=== PATIENT | male | born 1945 | race Caucasian/White ===

== ENCOUNTER → 2016-04-30 | Outpatient (CLI) | payer OTHER ==
[2016-04-30 09:06] LABS: Basophils # (auto) 0 uL; Basophils % (auto) 0.8 % (0.0-2.0); Eosinophils # (auto) 0.1 uL; Eosinophils % (auto) 1.7 % (0.0-7.0); Hematocrit 43.5 % (41.0-53.0); Hemoglobin 14.5 g/dL (13.5-17.5); Lymphocytes # (auto) 1.8 uL; Lymphocytes % (auto) 28.7 % (10.0-50.0); Mean Corpuscular Hemoglobin 30.2 pg (28.0-32.0); Mean Corpuscular Hgb Conc. 33.4 g/dL (32.0-36.0); Mean Corpuscular Volume 90.5 fL (80.0-100.0); Mean Platelet Volume 8.4 fL (7.4-10.4); Monocytes # (auto) 0.4 uL; Monocytes % (auto) 6.8 % (0.0-12.0); Neutrophils # (auto) 3.8 uL; Platelet Count (auto) 149 10^3/uL (140-450); Red Cell Distribution Width 14.5 % (11.6-16.0); White Blood Cell 6.1 10^3/uL (4.4-10.8)
[2016-04-30 09:31] LABS: Albumin 4.4 g/dL (3.4-5.0); BUN/Creatinine Ratio 21.1; Bilirubin, Total 0.7 mg/dL (0.2-1.0); Calcium 9.6 mg/dL (8.5-10.1); Potassium 4.5 mmol/L (3.5-5.1); Total Protein 7.7 g/dL (6.4-8.2)
[2016-04-30 09:33] LABS: Urine Bilirubin Negative (Negative); Urine Blood Negative /uL (Negative); Urine Color Yellow (Yellow); Urine Glucose Normal (Normal); Urine Ketone Negative (Negative); Urine Nitrite Negative (Negative); Urine RBC 5 /hpf (0 - 3); Urine Urobilinogen Normal (Negative); Urine pH 5.5 (5.0-8.0)
== END | disposition home or self-care (01) ==
LOC: LAB 06:47
PROVIDERS: ATTEND Family Medicine
DX: I10 Essential (primary) hypertension (principal); E78.4 Other hyperlipidemia; G61.89 Other inflammatory polyneuropathies
CPT/HCPCS: 36415; 80053; 80061; 81001; 82306; 82607; 83036; 84443; 85025; 85049

== ENCOUNTER → 2016-09-14 | Outpatient (CLI) | payer OTHER ==
[~2016-09-14] VITALS: Ht 175.3 cm; Wt 111.1 kg
[~2016-09-14] MED LIST: ADENOSINE 93 MG in GIVE UN-DILUTED 0 ML IV STA
== END | disposition home or self-care (01) ==
LOC: XY 08:07
PROVIDERS: ATTEND Internal Medicine Cardiovascular Disease
DX: Z01.818 Encounter for other preprocedural examination (principal); I35.8 Other nonrheumatic aortic valve disorders
CPT/HCPCS: 93017; 93306; J0153

== ENCOUNTER 2016-11-02 11:54 | Inpatient (IN) | payer OTHER ==
[~2016-11-02] VITALS: Ht 175.3 cm; Wt 107.5 kg
[2016-11-02 13:00] LABS: Basophils # (auto) 0.1 uL; Basophils % (auto) 0.8 % (0.0-2.0); CONDITION Y; Eosinophils # (auto) 0.1 uL; Eosinophils % (auto) 1.9 % (0.0-7.0); Hematocrit 43.4 % (41.0-53.0); Lymphocytes # (auto) 2.2 uL; Lymphocytes % (auto) 32.1 % (10.0-50.0); Mean Corpuscular Hemoglobin 30.9 pg (28.0-32.0); Mean Corpuscular Hgb Conc. 34.5 g/dL (32.0-36.0); Mean Corpuscular Volume 89.4 fL (80.0-100.0); Mean Platelet Volume 8.3 fL (7.4-10.4); Monocytes # (auto) 0.7 uL; Neutrophils # (auto) 3.8 uL; Neutrophils % (auto) 55.2 % (37.0-80.0); Platelet Count (auto) 167 10^3/uL (140-450); Red Cell Distribution Width 14.1 % (11.6-16.0)
[2016-11-02 13:13] LABS: INR 1.44 (0.9-1.15); Partial Thromboplastin Time 30.6 sec (22.64-33.71)
[2016-11-02 13:19] LABS: Albumin 4.1 g/dL (3.4-5.0); Alkaline Phosphatase 67 U/L (45-117); Anion Gap 7 (5-15); Aspartate Aminotransferase 18 U/L (15-37); BUN/Creatinine Ratio 18.6; Bilirubin, Total 0.7 mg/dL (0.2-1.0); Blood Urea Nitrogen 19 mg/dL (7-18); Calcium 9.4 mg/dL (8.5-10.1); Carbon Dioxide 28 mmol/L (21-32); Chloride 108 mmol/L (98-107); GFR African American 92 mL/min; GFR Non-African American 76 mL/min; Glucose 97 mg/dL (74-106); Magnesium 2.6 mg/dL (1.6-2.6); Potassium 4.2 mmol/L (3.5-5.1); Sodium 143 mmol/L (136-145); Total Protein 7.8 g/dL (6.4-8.2)
[2016-11-02 13:22] LABS: Prothrombin Time 15.8 sec (9.37-12.3)
[2016-11-02] MEDS ORDERED: TEMAZEPAM 15 MG CAP PO PRN (14:30)
[2016-11-02] MEDS ORDERED: ACETAMINOPHEN 500 MG TAB PO PRN (14:30)
[2016-11-02] MEDS ORDERED: MORPHINE SULF INJ 2 MG/ML SYRINGE 1ML IV PRN (14:30)
[2016-11-02] MEDS ORDERED: NITROGLYCERIN 0.4 MG SL TAB SL PRN (14:30)
[2016-11-02] MEDS ORDERED: LOVA40TA72 PO (14:47)
[2016-11-02] MEDS ORDERED: WARF4TAB33 PO (14:47)
[2016-11-02] MEDS ORDERED: GABA-497 PO (14:47)
[2016-11-02] MEDS ORDERED: METO-169 PO (14:47)
[2016-11-02] MEDS ORDERED: TAMS0.4C36 PO (14:47)
[2016-11-02] MEDS ORDERED: HEPARIN DRIP/D5W 100UNITS/ML 250 ML IV SCH (15:15)
[2016-11-02 15:23] LABS: Urine Bilirubin Negative (Negative); Urine Blood Negative /uL (Negative); Urine Color Yellow (Yellow); Urine Glucose Normal (Normal); Urine Hyaline Cast FEW /lpf (0 - 2); Urine Ketone Negative (Negative); Urine Mucus FEW (None Seen); Urine Nitrite Negative (Negative); Urine RBC <1 /hpf (0 - 3); Urine Urobilinogen Normal (Negative)
[2016-11-02 17:00] VITALS: BP 127/77
[2016-11-02 20:00] VITALS: BP 113/66
[2016-11-02 22:00] VITALS: BP 113/66
[2016-11-02 22:17] LABS: INR 1.29 (0.9-1.15); Partial Thromboplastin Time 35.6 sec (22.64-33.71); Prothrombin Time 14.1 sec (9.37-12.3)
[2016-11-03 05:00] VITALS: BP 119/63
[2016-11-03 06:02] LABS: Basophils # (auto) 0.1 uL; Basophils % (auto) 1.3 % (0.0-2.0); CONDITION Y; Eosinophils # (auto) 0.1 uL; Eosinophils % (auto) 1.9 % (0.0-7.0); Hematocrit 41.4 % (41.0-53.0); Hemoglobin 14.6 g/dL (13.5-17.5); Lymphocytes # (auto) 1.9 uL; Lymphocytes % (auto) 34.9 % (10.0-50.0); Mean Corpuscular Hemoglobin 31.4 pg (28.0-32.0); Mean Corpuscular Hgb Conc. 35.2 g/dL (32.0-36.0); Mean Corpuscular Volume 89.3 fL (80.0-100.0); Mean Platelet Volume 8.4 fL (7.4-10.4); Monocytes # (auto) 0.5 uL; Monocytes % (auto) 9.8 % (0.0-12.0); Neutrophils # (auto) 2.8 uL; Neutrophils % (auto) 52.1 % (37.0-80.0); Platelet Count (auto) 130 10^3/uL (140-450); Red Cell Distribution Width 14.2 % (11.6-16.0); White Blood Cell 5.4 10^3/uL (4.4-10.8)
[2016-11-03 06:13] LABS: INR 1.24 (0.9-1.15); Partial Thromboplastin Time 54.1 sec (22.64-33.71)
[2016-11-03 06:14] LABS: Prothrombin Time 13.5 sec (9.37-12.3)
[2016-11-03] MEDS ORDERED: HEPARIN DRIP/D5W 100UNITS/ML 250 ML IV SCH (06:30)
[2016-11-03 08:00] VITALS: BP 114/72
[2016-11-03 09:06] VITALS: BP 114/72
[2016-11-03 11:58] LABS: INR 1.21 (0.9-1.15); Partial Thromboplastin Time 43.6 sec (22.64-33.71)
[2016-11-03 12:16] LABS: Prothrombin Time 13.2 sec (9.37-12.3)
[2016-11-03 12:54] VITALS: BP 133/77
[2016-11-03] MEDS: HEPARIN DRIP/D5W 100UNITS/ML 250 ML IV SCH (12:56)
[2016-11-03] MEDS ORDERED: GABAPENTIN 300 MG CAP PO ONE (15:30)
[2016-11-03 17:00] VITALS: BP 133/81
[2016-11-03] MEDS: TAMSULOSIN HYDROCHLORIDE 0.4 MG CAP PO SCH (17:06)
[2016-11-03 19:48] LABS: INR 1.16 (0.9-1.15)
[2016-11-03 19:49] LABS: Prothrombin Time 12.7 sec (9.37-12.3)
[2016-11-03] MEDS: ATORVASTATIN 20 MG TAB PO SCH (21:04)
[2016-11-03] MEDS: GABAPENTIN 300 MG CAP PO SCH (21:04)
[2016-11-03 22:00] VITALS: BP 116/66
[2016-11-04] MEDS: HEPARIN DRIP/D5W 100UNITS/ML 250 ML IV SCH (00:51)
[2016-11-04 05:00] VITALS: BP 102/64
[2016-11-04] MEDS: GABAPENTIN 300 MG CAP PO SCH ×3 (05:30→21:05)
[2016-11-04] MEDS ORDERED: HEPARIN DRIP/D5W 100UNITS/ML 250 ML IV SCH ×2 (08:30→14:15)
[2016-11-04 09:00] VITALS: BP 127/67
[2016-11-04 09:06] LABS: INR 1.11 (0.9-1.15); Partial Thromboplastin Time 68.2 sec (22.64-33.71); Prothrombin Time 12.1 sec (9.37-12.3)
[2016-11-04 09:58] LABS: Basophils # (auto) 0 uL; Basophils % (auto) 0.6 % (0.0-2.0); CONDITION Y; Eosinophils # (auto) 0.1 uL; Eosinophils % (auto) 1.6 % (0.0-7.0); Hematocrit 43.1 % (41.0-53.0); Hemoglobin 14.9 g/dL (13.5-17.5); Lymphocytes # (auto) 1.6 uL; Lymphocytes % (auto) 29.8 % (10.0-50.0); Mean Corpuscular Hemoglobin 30.9 pg (28.0-32.0); Mean Corpuscular Hgb Conc. 34.5 g/dL (32.0-36.0); Mean Corpuscular Volume 89.6 fL (80.0-100.0); Mean Platelet Volume 8.5 fL (7.4-10.4); Monocytes # (auto) 0.3 uL; Monocytes % (auto) 5.6 % (0.0-12.0); Neutrophils # (auto) 3.4 uL; Neutrophils % (auto) 62.4 % (37.0-80.0); Platelet Count (auto) 144 10^3/uL (140-450); Red Cell Distribution Width 14.6 % (11.6-16.0); White Blood Cell 5.5 10^3/uL (4.4-10.8)
[2016-11-04 13:00] VITALS: BP 131/63
[2016-11-04 14:05] LABS: INR 1.13 (0.9-1.15); Prothrombin Time 12.3 sec (9.37-12.3)
[2016-11-04 16:59] VITALS: BP 117/70
[2016-11-04] MEDS: TAMSULOSIN HYDROCHLORIDE 0.4 MG CAP PO SCH (18:30)
[2016-11-04] MEDS: ATORVASTATIN 20 MG TAB PO SCH (21:05)
[2016-11-04 22:00] VITALS: BP 111/64
[2016-11-05 05:00] VITALS: BP 103/60
[2016-11-05] MEDS: GABAPENTIN 300 MG CAP PO SCH ×3 (05:32→22:42)
[2016-11-05 06:21] LABS: INR 1.05 (0.9-1.15); Partial Thromboplastin Time 28.5 sec (22.64-33.71); Prothrombin Time 11.5 sec (9.37-12.3)
[2016-11-05] MEDS ORDERED: BUPIVACAINE W/ EPINEPH 0.25% INJ 50ML MDV ONE (06:56)
[2016-11-05] MEDS ORDERED: BUPIVACAINE 0.25% INJ 50ML VIAL ONE (06:56)
[2016-11-05] MEDS ORDERED: LIDOCAINE 1% HCL (LOCAL ANESTH.) INJ 20ML MDV ONE (06:56)
[2016-11-05] MEDS ORDERED: ceFAZolin 1GM/50ML D5W 100 ML IV ONE (07:06)
[2016-11-05] MEDS ORDERED: fentaNYL CITRATE 5 ML ONE (07:35)
[2016-11-05] MEDS ORDERED: MIDAZOLAM HCL 1MG/1ML-2 ML VIAL ONE (07:36)
[2016-11-05] MEDS ORDERED: PROPOFOL 10 MG/ML 20 ML IV ONE (07:36)
[2016-11-05] MEDS ORDERED: ROCURONIUM 10MG/ML 10ML VIAL IV ONE (07:36)
[2016-11-05] MEDS ORDERED: HYDROmorphone HCL 2 MG/ML VL ONE (08:04)
[2016-11-05] MEDS ORDERED: ONDANSETRON HCL 4 MG/2 ML VIAL IV ONE (10:30)
[2016-11-05] MEDS ORDERED: ePHEDrine SULFATE 50 MG/ML AMP IV PRN (10:30)
[2016-11-05] MEDS ORDERED: hydrALAZINE HCL 20 MG/ML VL IV PRN (10:30)
[2016-11-05] MEDS: HYDROmorphone HCL 2 MG/ML VL IV PRN ×7 (10:59→23:52)
[2016-11-05] MEDS ORDERED: HYDROmorphone HCL 2 MG/ML VL IV PRN (12:00)
[2016-11-05 13:14] VITALS: BP 123/80
[2016-11-05] MEDS ORDERED: WARFARIN SODIUM 5 MG TAB PO ONE (17:00)
[2016-11-05 17:38] VITALS: BP 112/80
[2016-11-05] MEDS: TAMSULOSIN HYDROCHLORIDE 0.4 MG CAP PO SCH (17:42)
[2016-11-05 22:07] VITALS: BP 109/66
[2016-11-05] MEDS: ATORVASTATIN 20 MG TAB PO SCH (22:42)
[2016-11-06] MEDS: HYDROmorphone HCL 2 MG/ML VL IV PRN ×5 (02:56→20:16)
[2016-11-06 05:00] VITALS: BP 134/70
[2016-11-06] MEDS: GABAPENTIN 300 MG CAP PO SCH ×3 (05:52→21:34)
[2016-11-06 07:31] LABS: INR 1.07 (0.9-1.15); Partial Thromboplastin Time 26.2 sec (22.64-33.71); Prothrombin Time 11.7 sec (9.37-12.3)
[2016-11-06 08:00] VITALS: BP 124/74
[2016-11-06 09:00] VITALS: BP 125/74
[2016-11-06] MEDS ORDERED: HEPARIN DRIP/D5W 100UNITS/ML 250 ML IV SCH (12:36)
[2016-11-06 13:00] VITALS: BP 116/68
[2016-11-06] MEDS: HYDROcodone-ACET 5/325MG TAB PO PRN ×2 (13:16→17:25)
[2016-11-06] MEDS: HEPARIN DRIP/D5W 100UNITS/ML 250 ML IV SCH (13:45)
[2016-11-06 17:00] VITALS: BP 130/63
[2016-11-06] MEDS ORDERED: WARFARIN SODIUM 2 MG TAB PO ONE (17:00)
[2016-11-06] MEDS: TAMSULOSIN HYDROCHLORIDE 0.4 MG CAP PO SCH (17:25)
[2016-11-06 19:56] LABS: INR 1.12 (0.9-1.15); Partial Thromboplastin Time 41.5 sec (22.64-33.71); Prothrombin Time 12.2 sec (9.37-12.3)
[2016-11-06] MEDS: DOCUSATE SOD 100 MG CAP PO SCH (21:34)
[2016-11-06] MEDS: ATORVASTATIN 20 MG TAB PO SCH (21:34)
[2016-11-06] MEDS ORDERED: CALCIUM CARB 500 MG CHEW TAB PO PRN (21:45)
[2016-11-06] MEDS ORDERED: METOPROLOL TARTRATE 1MG/1ML-5ML VIAL IV ONE (21:45)
[2016-11-06 22:05] VITALS: BP 114/60
[2016-11-07] MEDS: HEPARIN DRIP/D5W 100UNITS/ML 250 ML IV SCH ×2 (01:01→14:44)
[2016-11-07 02:31] LABS: Basophils # (auto) 0.1 uL; Basophils % (auto) 0.7 % (0.0-2.0); CONDITION Y; Eosinophils # (auto) 0 uL; Eosinophils % (auto) 0.4 % (0.0-7.0); Lymphocytes # (auto) 1.8 uL; Lymphocytes % (auto) 20.3 % (10.0-50.0); Mean Corpuscular Hgb Conc. 34.4 g/dL (32.0-36.0); Mean Corpuscular Volume 90.2 fL (80.0-100.0); Mean Platelet Volume 8.1 fL (7.4-10.4); Monocytes # (auto) 1.5 uL; Monocytes % (auto) 16.6 % (0.0-12.0); Neutrophils # (auto) 5.5 uL; Platelet Count (auto) 123 10^3/uL (140-450); Red Cell Distribution Width 14.5 % (11.6-16.0); White Blood Cell 8.9 10^3/uL (4.4-10.8)
[2016-11-07 02:33] LABS: INR 1.16 (0.9-1.15)
[2016-11-07 02:35] LABS: Partial Thromboplastin Time 86.5 sec (22.64-33.71); Prothrombin Time 12.7 sec (9.37-12.3)
[2016-11-07] MEDS: HYDROcodone-ACET 5/325MG TAB PO PRN ×4 (04:47→21:29)
[2016-11-07 04:50] VITALS: BP 123/68
[2016-11-07] MEDS: GABAPENTIN 300 MG CAP PO SCH ×3 (05:44→21:30)
[2016-11-07 06:08] LABS: Urine Bilirubin Negative (Negative); Urine Color PINK (Yellow); Urine Glucose Normal (Normal); Urine Ketone Negative (Negative); Urine Nitrite Negative (Negative); Urine RBC 233 /hpf (0 - 3); Urine Squamous Epithelial Cell FEW /hpf (<5); Urine Urobilinogen Normal (Negative)
[2016-11-07 06:11] LABS: Urine Blood 3+ /uL (Negative)
[2016-11-07 08:07] LABS: INR 1.23 (0.9-1.15)
[2016-11-07 08:09] LABS: Prothrombin Time 13.4 sec (9.37-12.3)
[2016-11-07 08:10] LABS: Partial Thromboplastin Time 98.6 sec (22.64-33.71)
[2016-11-07 09:00] VITALS: BP 104/59
[2016-11-07] MEDS: DOCUSATE SOD 100 MG CAP PO SCH ×2 (09:18→21:30)
[2016-11-07] MEDS ORDERED: DIGOXIN (250MCG/ML) 2 ML AMPULE IV ONE (10:15)
[2016-11-07 13:00] VITALS: BP 123/66
[2016-11-07 17:00] VITALS: BP 116/62
[2016-11-07] MEDS ORDERED: WARFARIN SODIUM 2 MG TAB PO ONE (17:00)
[2016-11-07] MEDS: TAMSULOSIN HYDROCHLORIDE 0.4 MG CAP PO SCH (18:13)
[2016-11-07 20:00] VITALS: BP 111/63
[2016-11-07] MEDS: ATORVASTATIN 20 MG TAB PO SCH (21:29)
[2016-11-07] MEDS: CARVEDILOL 3.125 MG TAB PO SCH (21:29)
[2016-11-07 22:00] VITALS: BP 111/63
[2016-11-08 01:51] VITALS: BP 111/63
[2016-11-08 02:45] LABS: INR 1.61 (0.9-1.15); Partial Thromboplastin Time 69.3 sec (22.64-33.71)
[2016-11-08 02:53] LABS: Prothrombin Time 17.6 sec (9.37-12.3)
[2016-11-08] MEDS: HEPARIN DRIP/D5W 100UNITS/ML 250 ML IV SCH ×3 (03:15→17:29)
[2016-11-08 05:00] VITALS: BP 117/61
[2016-11-08] MEDS: HYDROcodone-ACET 5/325MG TAB PO PRN (05:44)
[2016-11-08] MEDS: GABAPENTIN 300 MG CAP PO SCH ×3 (05:44→21:33)
[2016-11-08] MEDS: HYDROmorphone HCL 2 MG/ML VL IV PRN ×5 (05:53→22:40)
[2016-11-08 05:57] LABS: Basophils # (auto) 0.1 uL; Basophils % (auto) 0.7 % (0.0-2.0); CONDITION Y; Eosinophils # (auto) 0.1 uL; Eosinophils % (auto) 1.5 % (0.0-7.0); Hematocrit 29.3 % (41.0-53.0); Hemoglobin 10.2 g/dL (13.5-17.5); Lymphocytes # (auto) 1.4 uL; Lymphocytes % (auto) 20.4 % (10.0-50.0); Mean Corpuscular Hemoglobin 31.2 pg (28.0-32.0); Mean Corpuscular Hgb Conc. 34.7 g/dL (32.0-36.0); Mean Corpuscular Volume 89.9 fL (80.0-100.0); Mean Platelet Volume 7.9 fL (7.4-10.4); Monocytes % (auto) 14.9 % (0.0-12.0); Neutrophils # (auto) 4.4 uL; Neutrophils % (auto) 62.5 % (37.0-80.0); Platelet Count (auto) 123 10^3/uL (140-450); Red Cell Distribution Width 14.6 % (11.6-16.0)
[2016-11-08 09:00] VITALS: BP 121/69
[2016-11-08 09:23] LABS: INR 1.65 (0.9-1.15); Partial Thromboplastin Time 59.2 sec (22.64-33.71)
[2016-11-08 09:24] LABS: Prothrombin Time 18.1 sec (9.37-12.3)
[2016-11-08] MEDS: CARVEDILOL 3.125 MG TAB PO SCH (10:25)
[2016-11-08] MEDS: DOCUSATE SOD 100 MG CAP PO SCH ×2 (10:25→21:33)
[2016-11-08] MEDS ORDERED: SENNA 8.6 MG TAB PO ONE (11:45)
[2016-11-08 13:00] VITALS: BP 119/72
[2016-11-08 17:00] VITALS: BP 111/72
[2016-11-08] MEDS ORDERED: WARFARIN SODIUM 2 MG TAB PO ONE (17:00)
[2016-11-08] MEDS: TAMSULOSIN HYDROCHLORIDE 0.4 MG CAP PO SCH (18:26)
[2016-11-08 19:16] LABS: Urine Bilirubin Negative (Negative); Urine Color Red (Yellow); Urine Glucose Normal (Normal); Urine Ketone Negative (Negative); Urine Nitrite Negative (Negative); Urine RBC 4352 /hpf (0 - 3); Urine Urobilinogen Normal (Negative); Urine pH 5.5 (5.0-8.0)
[2016-11-08 19:24] LABS: Urine Blood 3+ /uL (Negative)
[2016-11-08] MEDS: METOPROLOL TARTRATE 25 MG TAB PO SCH (21:33)
[2016-11-08] MEDS: ATORVASTATIN 20 MG TAB PO SCH (21:33)
[2016-11-08 22:00] VITALS: BP 128/65
[2016-11-09] MEDS: HYDROmorphone HCL 2 MG/ML VL IV PRN ×6 (01:57→20:11)
[2016-11-09] MEDS: HYDROcodone-ACET 5/325MG TAB PO PRN ×2 (03:53→21:54)
[2016-11-09 04:52] LABS: Urine Mucus FEW (None Seen); Urine RBC 7951 /hpf (0 - 3)
[2016-11-09 04:54] LABS: Urine Color Red (Yellow)
[2016-11-09 05:00] VITALS: BP 116/74
[2016-11-09 05:13] LABS: Basophils # (auto) 0 uL; Basophils % (auto) 0.8 % (0.0-2.0); CONDITION Y; Eosinophils # (auto) 0.2 uL; Eosinophils % (auto) 2.4 % (0.0-7.0); Hematocrit 28.3 % (41.0-53.0); Hemoglobin 9.8 g/dL (13.5-17.5); Lymphocytes # (auto) 1.5 uL; Lymphocytes % (auto) 24.6 % (10.0-50.0); Mean Corpuscular Hemoglobin 31.3 pg (28.0-32.0); Mean Corpuscular Hgb Conc. 34.7 g/dL (32.0-36.0); Mean Platelet Volume 7.2 fL (7.4-10.4); Monocytes % (auto) 16.1 % (0.0-12.0); Neutrophils # (auto) 3.5 uL; Neutrophils % (auto) 56.1 % (37.0-80.0); Platelet Count (auto) 143 10^3/uL (140-450); Red Cell Distribution Width 14.8 % (11.6-16.0); White Blood Cell 6.2 10^3/uL (4.4-10.8)
[2016-11-09 05:39] LABS: INR 2.11 (0.9-1.15); Partial Thromboplastin Time 48.6 sec (22.64-33.71)
[2016-11-09 05:42] LABS: Prothrombin Time 23.2 sec (9.37-12.3)
[2016-11-09] MEDS: GABAPENTIN 300 MG CAP PO SCH ×3 (06:02→21:38)
[2016-11-09] MEDS: DOCUSATE SOD 100 MG CAP PO SCH ×2 (08:51→21:37)
[2016-11-09] MEDS: METOPROLOL TARTRATE 25 MG TAB PO SCH ×2 (08:52→21:38)
[2016-11-09 09:00] VITALS: BP 109/62
[2016-11-09 13:00] VITALS: BP 112/54
[2016-11-09 17:00] VITALS: BP 113/59
[2016-11-09] MEDS ORDERED: WARFARIN SODIUM 2 MG TAB PO ONE (17:00)
[2016-11-09] MEDS: TAMSULOSIN HYDROCHLORIDE 0.4 MG CAP PO SCH (17:48)
[2016-11-09 21:12] LABS: Hematocrit 29.6 % (41.0-53.0); Hemoglobin 10.4 g/dL (13.5-17.5)
[2016-11-09 21:24] LABS: INR 2.63 (0.9-1.15); Partial Thromboplastin Time 34.1 sec (22.64-33.71)
[2016-11-09 21:29] LABS: Prothrombin Time 28.9 sec (9.37-12.3)
[2016-11-09] MEDS: ATORVASTATIN 20 MG TAB PO SCH (21:37)
[2016-11-09 22:00] VITALS: BP 131/60
[2016-11-10] MEDS: HYDROmorphone HCL 2 MG/ML VL IV PRN ×3 (00:54→22:01)
[2016-11-10 05:30] VITALS: BP 120/76
[2016-11-10] MEDS: GABAPENTIN 300 MG CAP PO SCH ×3 (06:00→22:01)
[2016-11-10 06:26] LABS: Basophils # (auto) 0 uL; Basophils % (auto) 0.7 % (0.0-2.0); CONDITION Y; Eosinophils # (auto) 0.1 uL; Eosinophils % (auto) 1.6 % (0.0-7.0); Hematocrit 27.8 % (41.0-53.0); Hemoglobin 9.6 g/dL (13.5-17.5); Lymphocytes # (auto) 1.4 uL; Lymphocytes % (auto) 19.6 % (10.0-50.0); Mean Corpuscular Hemoglobin 31.1 pg (28.0-32.0); Mean Corpuscular Hgb Conc. 34.5 g/dL (32.0-36.0); Mean Corpuscular Volume 90.2 fL (80.0-100.0); Mean Platelet Volume 7.5 fL (7.4-10.4); Monocytes % (auto) 14.1 % (0.0-12.0); Neutrophils # (auto) 4.4 uL; Platelet Count (auto) 149 10^3/uL (140-450); Red Cell Distribution Width 14.7 % (11.6-16.0); White Blood Cell 6.9 10^3/uL (4.4-10.8)
[2016-11-10 06:34] LABS: INR 2.44 (0.9-1.15); Partial Thromboplastin Time 36.9 sec (22.64-33.71)
[2016-11-10 06:43] LABS: Prothrombin Time 26.8 sec (9.37-12.3)
[2016-11-10 09:00] VITALS: BP_SYST 119; BP_SYST 122; BP_DIAS 64; BP_DIAS 66
[2016-11-10] MEDS: DOCUSATE SOD 100 MG CAP PO SCH ×2 (09:42→22:00)
[2016-11-10] MEDS: METOPROLOL TARTRATE 25 MG TAB PO SCH ×2 (09:42→22:00)
[2016-11-10] MEDS ORDERED: MORPHINE SULF INJ 2 MG/ML SYRINGE 1ML IV PRN (11:15)
[2016-11-10] MEDS ORDERED: TEMAZEPAM 15 MG CAP PO PRN (11:15)
[2016-11-10 13:00] VITALS: BP 111/41
[2016-11-10 17:00] VITALS: BP_SYST 114; BP_SYST 127; BP_DIAS 64
[2016-11-10] MEDS ORDERED: WARFARIN SODIUM 5 MG TAB PO ONE (17:00)
[2016-11-10] MEDS: TAMSULOSIN HYDROCHLORIDE 0.4 MG CAP PO SCH (18:13)
[2016-11-10] MEDS: HYDROcodone-ACET 5/325MG TAB PO PRN (19:51)
[2016-11-10 19:57] LABS: Hematocrit 31.1 % (41.0-53.0); Hemoglobin 10.5 g/dL (13.5-17.5)
[2016-11-10 22:00] VITALS: BP 111/72
[2016-11-10] MEDS: ATORVASTATIN 20 MG TAB PO SCH (22:00)
[2016-11-11] MEDS: HYDROmorphone HCL 2 MG/ML VL IV PRN ×3 (02:19→08:47)
[2016-11-11] MEDS: GABAPENTIN 300 MG CAP PO SCH ×2 (05:27→16:57)
[2016-11-11 05:30] VITALS: BP 108/69
[2016-11-11 06:13] LABS: Basophils # (auto) 0.1 uL; Basophils % (auto) 0.7 % (0.0-2.0); CONDITION Y; Eosinophils # (auto) 0.1 uL; Hematocrit 26.9 % (41.0-53.0); Hemoglobin 9.2 g/dL (13.5-17.5); Lymphocytes # (auto) 1.8 uL; Lymphocytes % (auto) 19.6 % (10.0-50.0); Mean Corpuscular Hemoglobin 30.9 pg (28.0-32.0); Mean Corpuscular Hgb Conc. 34.2 g/dL (32.0-36.0); Mean Corpuscular Volume 90.5 fL (80.0-100.0); Mean Platelet Volume 7.4 fL (7.4-10.4); Monocytes # (auto) 1.1 uL; Monocytes % (auto) 11.9 % (0.0-12.0); Neutrophils # (auto) 6.1 uL; Neutrophils % (auto) 66.8 % (37.0-80.0); Platelet Count (auto) 183 10^3/uL (140-450); Red Cell Distribution Width 14.9 % (11.6-16.0); White Blood Cell 9.1 10^3/uL (4.4-10.8)
[2016-11-11 06:25] LABS: INR 2.6 (0.9-1.15); Partial Thromboplastin Time 39.2 sec (22.64-33.71)
[2016-11-11 06:30] LABS: Prothrombin Time 28.6 sec (9.37-12.3)
[2016-11-11 09:00] VITALS: BP 116/54
[2016-11-11] MEDS: METOPROLOL TARTRATE 25 MG TAB PO SCH (11:08)
[2016-11-11] MEDS: DOCUSATE SOD 100 MG CAP PO SCH (11:08)
[2016-11-11 13:00] VITALS: BP 111/74
[2016-11-11 15:33] VITALS: BP 116/54
[2016-11-11] MEDS ORDERED: WARFARIN SODIUM 1 MG TAB PO ONE (17:00)
== END 2016-11-11 17:00 | disposition home or self-care (01) | DRG 470 ==
LOC: ER 11:54 → TELE 11:55 → TELE-WESTW 17:23
PROVIDERS: ADMIT Internal Medicine; ATTEND Internal Medicine
PROC: 0MBN0ZZ Excision of Right Knee Bursa and Ligament, Open Approach (ICD-10-PCS; 2016-11-05)
PROC: 0SRC0J9 Replacement of Right Knee Joint with Synthetic Substitute, Cemented, Open Approach (ICD-10-PCS; principal; 2016-11-05 07:30)
DX: M17.11 Unilateral primary osteoarthritis, right knee (principal); N39.0 Urinary tract infection, site not specified; I10 Essential (primary) hypertension; G62.9 Polyneuropathy, unspecified; B95.2 Enterococcus as the cause of diseases classified elsewhere; D64.9 Anemia, unspecified; E66.9 Obesity, unspecified; E78.5 Hyperlipidemia, unspecified; I25.10 Atherosclerotic heart disease of native coronary artery without angina pectoris; K57.30 Diverticulosis of large intestine without perforation or abscess without bleeding; I48.0 Paroxysmal atrial fibrillation; M70.41 Prepatellar bursitis, right knee; R31.0 Gross hematuria; Z82.49 Family history of ischemic heart disease and other diseases of the circulatory system; Z95.2 Presence of prosthetic heart valve; Z83.3 Family history of diabetes mellitus; Z87.442 Personal history of urinary calculi; Z98.61 Coronary angioplasty status; Z80.9 Family history of malignant neoplasm, unspecified; Z68.35 Body mass index [BMI] 35.0-35.9, adult
CPT/HCPCS: 36415; 71010; 73562; 74176; 80053; 81001; 83735; 84484; 85014; 85018; 85025; 85610; 85730; 86850; 86900; 86901; 87086; 87088; 87186; 93005; 94761; 96365; 96366; 96367; 97110; 97116; 97163; 97530; J0690; J2001; J2250; J2704; J3490

== ENCOUNTER 2017-05-11 13:12 | Emergency (ER) | payer OTHER ==
[~2017-05-11] VITALS: Ht 175.3 cm; Wt 90.7 kg
[~2017-05-11 13:12] MED LIST changes: -ADENOSINE 93 MG in GIVE UN-DILUTED 0 ML IV STA; +GABA300C10 PO; +LOVA40TA72 PO; +METO-169 PO; +TAMS0.4C36 PO; +WARF4TAB33 PO
[2017-05-11 13:46] VITALS: BP 150/86
== END 2017-05-11 19:00 | disposition left against medical advice (07) ==
LOC: ER 13:12 → EDBD 13:12 → ER 19:00
DX: R51 Headache (principal); Z53.21 Procedure and treatment not carried out due to patient leaving prior to being seen by health care provider; V43.62XA Car passenger injured in collision with other type car in traffic accident, initial encounter; Y93.89 Activity, other specified; Y99.8 Other external cause status; Y92.410 Unspecified street and highway as the place of occurrence of the external cause

== ENCOUNTER → 2017-07-27 | Outpatient (CLI) | payer OTHER ==
[2017-07-27 08:25] LABS: Basophils # (auto) 0.1 uL; Basophils % (auto) 1.2 % (0.0-2.0); Eosinophils # (auto) 0.1 uL; Eosinophils % (auto) 1.9 % (0.0-7.0); Hematocrit 42.7 % (41.0-53.0); Hemoglobin 14.7 g/dL (13.5-17.5); Lymphocytes # (auto) 1.5 uL; Lymphocytes % (auto) 31.6 % (10.0-50.0); Mean Corpuscular Hemoglobin 30.8 pg (28.0-32.0); Mean Corpuscular Hgb Conc. 34.4 g/dL (32.0-36.0); Mean Corpuscular Volume 89.7 fL (80.0-100.0); Monocytes # (auto) 0.6 uL; Monocytes % (auto) 13.1 % (0.0-12.0); Neutrophils # (auto) 2.5 uL; Neutrophils % (auto) 52.2 % (37.0-80.0); Nucleated Red Blood Cells % 0.3 %; Platelet Count (auto) 104 10^3/uL (140-450); Red Blood Cells 4.75 10^6/uL (4.5-5.90); Red Cell Distribution Width 14.7 % (11.8-14.3); White Blood Cell 4.8 10^3/uL (4.4-10.8)
[2017-07-27 08:33] LABS: Urine Bacteria NONE SEEN /hpf (None Seen); Urine Blood Negative /uL (Negative); Urine WBC 4 /hpf (0 - 3)
[2017-07-27 09:16] LABS: Albumin 4.1 g/dL (3.4-5.0); BUN/Creatinine Ratio 21.6; Bilirubin, Total 0.8 mg/dL (0.2-1.0); Calcium 8.9 mg/dL (8.5-10.1); Potassium 4.2 mmol/L (3.5-5.1); Total Protein 7.7 g/dL (6.4-8.2)
== END | disposition home or self-care (01) ==
LOC: LAB 07:52
PROVIDERS: ATTEND Nurse Practitioner
DX: E78.5 Hyperlipidemia, unspecified (principal); I10 Essential (primary) hypertension
CPT/HCPCS: 36415; 80053; 80061; 81001; 83036; 84443; 85025

== ENCOUNTER → 2017-10-11 | Outpatient (CLI) | payer OTHER ==
[2017-10-11 09:56] LABS: Basophils # (auto) 0.1 uL; Eosinophils # (auto) 0.1 uL; Eosinophils % (auto) 1.5 % (0.0-7.0); Hematocrit 43.1 % (41.0-53.0); Hemoglobin 14.9 g/dL (13.5-17.5); Lymphocytes # (auto) 1.1 uL; Lymphocytes % (auto) 27.2 % (10.0-50.0); Mean Corpuscular Hemoglobin 30.7 pg (28.0-32.0); Mean Corpuscular Hgb Conc. 34.5 g/dL (32.0-36.0); Mean Corpuscular Volume 88.8 fL (80.0-100.0); Monocytes # (auto) 0.5 uL; Monocytes % (auto) 11.8 % (0.0-12.0); Neutrophils # (auto) 2.4 uL; Neutrophils % (auto) 57.5 % (37.0-80.0); Nucleated Red Blood Cells % 0.3 %; Platelet Count (auto) 102 10^3/uL (140-450); Red Blood Cells 4.86 10^6/uL (4.5-5.90); Red Cell Distribution Width 14.6 % (11.8-14.3); White Blood Cell 4.1 10^3/uL (4.4-10.8)
[2017-10-11 10:24] LABS: Albumin 4.3 g/dL (3.4-5.0); Bilirubin, Total 0.7 mg/dL (0.2-1.0); CRP High Sensitivity 0.23 mg/dL (< 0.3); Calcium 9.1 mg/dL (8.5-10.1); Potassium 4.3 mmol/L (3.5-5.1); Total Protein 7.6 g/dL (6.4-8.2)
== END | disposition home or self-care (01) ==
LOC: LAB 08:12
PROVIDERS: ATTEND Internal Medicine Rheumatology
DX: L40.50 Arthropathic psoriasis, unspecified (principal); I10 Essential (primary) hypertension; E78.5 Hyperlipidemia, unspecified; I25.10 Atherosclerotic heart disease of native coronary artery without angina pectoris
CPT/HCPCS: 36415; 80053; 85025; 85652; 86141; 86200; 86431

== ENCOUNTER → 2017-12-30 | Outpatient (CLI) | payer OTHER ==
[2017-12-30 08:25] LABS: Hematocrit 40.9 % (41.0-53.0); Hemoglobin 13.9 g/dL (13.5-17.5); Mean Corpuscular Hgb Conc. 33.9 g/dL (32.0-36.0); Mean Corpuscular Volume 91.3 fL (80.0-100.0); Platelet Count (auto) 74 10^3/uL (140-450); Red Blood Cells 4.48 10^6/uL (4.5-5.90); Red Cell Distribution Width 16.6 % (11.8-14.3); White Blood Cell 3.2 10^3/uL (4.4-10.8)
[2017-12-30 08:40] LABS: Basophils % (manual) 0 (0.0-2.0); Blast Cells 0; Myelocytes % 0; Promyelocytes % 0; Reactive Lymphocytes 0
[2017-12-30 10:22] LABS: Albumin 4.2 g/dL (3.4-5.0); BUN/Creatinine Ratio 17.6; Calcium 9.4 mg/dL (8.5-10.1); Potassium 4.2 mmol/L (3.5-5.1); Total Protein 7.3 g/dL (6.4-8.2)
[2017-12-30 11:32] LABS: Band Neutrophils % (manual) 9; Eosinophils % (manual) 4 (0-7); Lymphocytes % (manual) 23 (10.0-50.0); Metamyelocytes % 1; Monocytes % (manual) 3 (0-12)
== END | disposition home or self-care (01) ==
LOC: LAB 08:02
PROVIDERS: ATTEND Internal Medicine Rheumatology
DX: L40.50 Arthropathic psoriasis, unspecified (principal); L40.9 Psoriasis, unspecified; I10 Essential (primary) hypertension
CPT/HCPCS: 36415; 80053; 85007; 85027

== ENCOUNTER → 2018-01-23 | Outpatient (CLI) | payer OTHER ==
[2018-01-23 08:28] LABS: Hemoglobin 13.5 g/dL (13.5-17.5); Mean Corpuscular Hemoglobin 31.5 pg (28.0-32.0); White Blood Cell 3.2 10^3/uL (4.4-10.8)
[2018-01-23 08:31] LABS: Mean Corpuscular Hgb Conc. 34.6 g/dL (32.0-36.0); Mean Corpuscular Volume 91.1 fL (80.0-100.0); Platelet Count (auto) 63 10^3/uL (140-450); Red Blood Cells 4.28 10^6/uL (4.5-5.90); Red Cell Distribution Width 16.7 % (11.8-14.3)
[2018-01-23 08:34] LABS: Urine Bacteria FEW /hpf (None Seen); Urine Blood Negative /uL (Negative); Urine Mucus FEW (None Seen); Urine Specific Gravity 1.026 (1.001-1.035); Urine WBC 6 /hpf (0 - 3)
[2018-01-23 08:36] LABS: Metamyelocytes % 0; Myelocytes % 0; Promyelocytes % 0; Reactive Lymphocytes 0
[2018-01-23 10:41] LABS: Band Neutrophils % (manual) 2; Basophils % (manual) 2 (0.0-2.0); Blast Cells 1; Eosinophils % (manual) 2 (0-7); Lymphocytes % (manual) 26 (10.0-50.0); Monocytes % (manual) 16 (0-12)
[2018-01-23 17:54] LABS: Calcium 8.4 mg/dL (8.5-10.1); Potassium 4.2 mmol/L (3.5-5.1)
[2018-01-23 18:01] LABS: Albumin 3.9 g/dL (3.4-5.0); BUN/Creatinine Ratio 15.8
[2018-01-23 18:06] LABS: Bilirubin, Total 1.1 mg/dL (0.2-1.0)
== END | disposition home or self-care (01) ==
LOC: LAB 07:49
PROVIDERS: ATTEND Nurse Practitioner
DX: E78.5 Hyperlipidemia, unspecified (principal); I10 Essential (primary) hypertension
CPT/HCPCS: 36415; 80053; 80061; 81001; 85007; 85027

== ENCOUNTER → 2018-02-15 | Outpatient (CLI) | payer OTHER ==
[~2018-02-15] VITALS: Ht 175.3 cm; Wt 99.8 kg
[~2018-02-15] MED LIST changes: +ADENOSINE 84 MG in GIVE UN-DILUTED 0 ML IV ONE
[2018-02-15 10:33] VITALS: BP 105/60
== END | disposition home or self-care (01) ==
LOC: XY 09:11
PROVIDERS: ATTEND Internal Medicine
DX: I10 Essential (primary) hypertension (principal); Z79.01 Long term (current) use of anticoagulants
CPT/HCPCS: 78452; 93017; A9500; J0153

== ENCOUNTER → 2018-02-23 | Outpatient (CLI) | payer OTHER ==
[~2018-02-23] MED LIST changes: -ADENOSINE 84 MG in GIVE UN-DILUTED 0 ML IV ONE
== END | disposition home or self-care (01) ==
LOC: XYW 08:30
PROVIDERS: ATTEND Internal Medicine
DX: I10 Essential (primary) hypertension (principal); Z95.2 Presence of prosthetic heart valve
CPT/HCPCS: 93306

== ENCOUNTER → 2018-03-24 | Outpatient (CLI) | payer OTHER ==
[2018-03-24 09:47] LABS: Hematocrit 40.4 % (41.0-53.0); Hemoglobin 13.7 g/dL (13.5-17.5); Mean Corpuscular Hemoglobin 30.2 pg (28.0-32.0); Mean Corpuscular Hgb Conc. 33.8 g/dL (32.0-36.0); Mean Corpuscular Volume 89.4 fL (80.0-100.0); Platelet Count (auto) 89 10^3/uL (140-450); Red Blood Cells 4.52 10^6/uL (4.5-5.90); Red Cell Distribution Width 16.9 % (11.8-14.3); White Blood Cell 3.4 10^3/uL (4.4-10.8)
[2018-03-24 09:53] LABS: Band Neutrophils % (manual) 0; Blast Cells 0; Metamyelocytes % 0; Myelocytes % 0; Promyelocytes % 0; Reactive Lymphocytes 0
[2018-03-24 09:55] LABS: Urine Bacteria NONE SEEN /hpf (None Seen); Urine Blood Negative /uL (Negative); Urine Mucus FEW (None Seen); Urine Specific Gravity 1.022 (1.001-1.035); Urine WBC 1 /hpf (0 - 3)
[2018-03-24 10:50] LABS: Albumin 3.9 g/dL (3.4-5.0); Basophils % (manual) 2 (0.0-2.0); Calcium 9.2 mg/dL (8.5-10.1); Eosinophils % (manual) 6 (0-7); Lymphocytes % (manual) 37 (10.0-50.0); Monocytes % (manual) 13 (0-12); Potassium 4.3 mmol/L (3.5-5.1)
[2018-03-24 10:53] LABS: BUN/Creatinine Ratio 17.3; Bilirubin, Total 0.7 mg/dL (0.2-1.0); Total Protein 7.2 g/dL (6.4-8.2)
== END | disposition home or self-care (01) ==
LOC: LAB 09:01
PROVIDERS: ATTEND Nurse Practitioner
DX: N39.0 Urinary tract infection, site not specified (principal)
CPT/HCPCS: 36415; 80053; 81001; 82270; 85007; 85027

== ENCOUNTER → 2018-05-16 | Outpatient (CLI) | payer OTHER ==
[~2018-05-16] MED LIST changes: +HYDR-4683 PO
[2018-05-16 08:47] LABS: Hematocrit 39.6 % (41.0-53.0); Hemoglobin 13.7 g/dL (13.5-17.5); Mean Corpuscular Hemoglobin 29.4 pg (28.0-32.0); Mean Corpuscular Hgb Conc. 34.7 g/dL (32.0-36.0); Mean Corpuscular Volume 84.9 fL (80.0-100.0); Platelet Count (auto) 70 10^3/uL (140-450); Red Blood Cells 4.66 10^6/uL (4.5-5.90); Red Cell Distribution Width 15.8 % (11.8-14.3); White Blood Cell 2.4 10^3/uL (4.4-10.8)
[2018-05-16 08:55] LABS: Basophils % (manual) 0 (0.0-2.0); Blast Cells 0; Metamyelocytes % 0; Myelocytes % 0; Promyelocytes % 0; Reactive Lymphocytes 0
[2018-05-16 09:00] LABS: INR 1.17 (0.9-1.15); Prothrombin Time 12.4 sec (9.27-12.13)
[2018-05-16 09:04] LABS: Calcium 9.1 mg/dL (8.5-10.1); Potassium 4.4 mmol/L (3.5-5.1)
[2018-05-16 09:08] LABS: BUN/Creatinine Ratio 17.5; Bilirubin, Total 0.8 mg/dL (0.2-1.0); Total Protein 7.2 g/dL (6.4-8.2)
[2018-05-16 09:29] LABS: Band Neutrophils % (manual) 1; Eosinophils % (manual) 5 (0-7); Lymphocytes % (manual) 42 (10.0-50.0); Monocytes % (manual) 18 (0-12)
== END | disposition home or self-care (01) ==
LOC: LAB 08:32
PROVIDERS: ATTEND Internal Medicine
DX: Z01.812 Encounter for preprocedural laboratory examination (principal)
CPT/HCPCS: 36415; 80053; 85007; 85027; 85610; 85730

== ENCOUNTER → 2018-07-07 | Outpatient (CLI) | payer OTHER, MEDICARE ==
[~2018-07-07] MED LIST changes: -METO-169 PO; +METO25TA5 PO; -TAMS0.4C36 PO
[2018-07-07 08:48] LABS: Basophils # (auto) 0 uL; Basophils % (auto) 1.7 % (0.0-2.0); Eosinophils # (auto) 0.1 uL; Eosinophils % (auto) 2.5 % (0.0-7.0); Hematocrit 40.4 % (41.0-53.0); Hemoglobin 13.7 g/dL (13.5-17.5); Lymphocytes # (auto) 0.8 uL; Lymphocytes % (auto) 32.3 % (10.0-50.0); Mean Corpuscular Hemoglobin 28.9 pg (28.0-32.0); Mean Corpuscular Hgb Conc. 33.8 g/dL (32.0-36.0); Mean Corpuscular Volume 85.5 fL (80.0-100.0); Monocytes # (auto) 0.4 uL; Monocytes % (auto) 15.3 % (0.0-12.0); Neutrophils # (auto) 1.2 uL; Neutrophils % (auto) 48.2 % (37.0-80.0); Nucleated Red Blood Cells % 0.8 %; Platelet Count (auto) 79 10^3/uL (140-450); Red Blood Cells 4.73 10^6/uL (4.5-5.90); Red Cell Distribution Width 16.7 % (11.8-14.3); White Blood Cell 2.4 10^3/uL (4.4-10.8)
[2018-07-07 08:51] LABS: Urine Bacteria FEW /hpf (None Seen); Urine Blood 1+ /uL (Negative); Urine Mucus FEW (None Seen); Urine Specific Gravity 1.016 (1.001-1.035); Urine WBC 37 /hpf (0 - 3)
[2018-07-07 09:13] LABS: Calcium 9.4 mg/dL (8.5-10.1); Potassium 4.2 mmol/L (3.5-5.1)
[2018-07-07 09:19] LABS: BUN/Creatinine Ratio 11.8; Bilirubin, Total 0.7 mg/dL (0.2-1.0); Total Protein 7.4 g/dL (6.4-8.2); Uric Acid 6.8 mg/dL (3.5-7.2)
[2018-07-07 09:21] LABS: Prostate Specific Antigen 0.66 ng/mL (0.0-4.0)
[2018-07-07 09:22] LABS: Folate (Folic Acid) > 24.00 ng/mL (5.38-24)
== END | disposition home or self-care (01) ==
LOC: LAB 08:01
PROVIDERS: ATTEND Nurse Practitioner
DX: E78.5 Hyperlipidemia, unspecified (principal)
CPT/HCPCS: 36415; 80053; 80061; 81001; 82270; 82306; 82607; 82746; 83036; 84153; 84443; 84550; 85025

== ENCOUNTER → 2018-07-17 | Outpatient (CLI) | payer OTHER, MEDICARE | END | disposition home or self-care (01) | LOC: LAB 08:01 | PROVIDERS: ATTEND Urology | DX: N20.0 Calculus of kidney (principal) | CPT/HCPCS: 84153 ==

== ENCOUNTER → 2018-07-27 | Outpatient (CLI) | payer OTHER, MEDICARE | END | disposition home or self-care (01) | LOC: LAB 14:35 | PROVIDERS: ATTEND Urology | DX: N40.1 Benign prostatic hyperplasia with lower urinary tract symptoms (principal); N39.0 Urinary tract infection, site not specified | CPT/HCPCS: 87086; 87088; 87186 ==

== ENCOUNTER → 2019-01-22 | Day surgery (SDC) | payer OTHER ==
[2019-01-18 10:43] LABS: Urine Bacteria NONE SEEN /hpf (None Seen); Urine Blood 1+ /uL (Negative); Urine Mucus FEW (None Seen); Urine Specific Gravity 1.016 (1.001-1.035); Urine WBC 1 /hpf (0 - 3)
[2019-01-18 10:44] LABS: INR 1.22 (0.9-1.15); Partial Thromboplastin Time 26.8 sec (23.64-32.05)
[2019-01-18 10:51] LABS: Hematocrit 37.2 % (41.0-53.0)
[2019-01-18 10:53] LABS: Hemoglobin 13.2 g/dL (13.5-17.5); Mean Corpuscular Hemoglobin 30.1 pg (28.0-32.0); Mean Corpuscular Hgb Conc. 35.5 g/dL (32.0-36.0); Mean Corpuscular Volume 84.7 fL (80.0-100.0); Platelet Count (auto) 71 10^3/uL (140-450); Red Blood Cells 4.39 10^6/uL (4.5-5.90)
[2019-01-18 11:17] LABS: White Blood Cell 1.9 10^3/uL (4.4-10.8)
[2019-01-18 11:22] LABS: Basophils % (manual) 0 (0.0-2.0); Blast Cells 0; Metamyelocytes % 0; Myelocytes % 0; Promyelocytes % 0; Reactive Lymphocytes 0
[2019-01-18 11:25] LABS: Band Neutrophils % (manual) 1; Eosinophils % (manual) 3 (0-7); Lymphocytes % (manual) 32 (10.0-50.0); Monocytes % (manual) 13 (0-12)
[2019-01-18 11:30] LABS: Calcium 9.3 mg/dL (8.5-10.1); Potassium 4.5 mmol/L (3.5-5.1)
[2019-01-18 11:35] LABS: Albumin 4.2 g/dL (3.4-5.0); BUN/Creatinine Ratio 13.9; Bilirubin, Total 1.1 mg/dL (0.2-1.0); Total Protein 7.3 g/dL (6.4-8.2)
[~2019-01-22] VITALS: Ht 175.3 cm; Wt 99.8 kg
[~2019-01-22] MED LIST changes: +BACL10TA PO; +CLOP75TA41 PO; +DOXA4TAB5 PO; -HYDR-4683 PO; +HYDR-4833 PO; -METO25TA5 PO; +SOLI10TA7 PO; +TRAM50TA2 PO
[2019-01-22 10:20] LABS: Mean Corpuscular Hemoglobin 30.1 pg (28.0-32.0); Platelet Count (auto) 61 10^3/uL (140-450)
[2019-01-22 10:22] LABS: Hematocrit 37.5 % (41.0-53.0); Mean Corpuscular Hgb Conc. 34.6 g/dL (32.0-36.0); Mean Corpuscular Volume 86.9 fL (80.0-100.0); Red Blood Cells 4.32 10^6/uL (4.5-5.90); Red Cell Distribution Width 16.4 % (11.8-14.3)
[2019-01-22 10:31] LABS: White Blood Cell 1.9 10^3/uL (4.4-10.8)
[2019-01-22 10:33] LABS: Band Neutrophils % (manual) 0; Basophils % (manual) 0 (0.0-2.0); Blast Cells 0; Metamyelocytes % 0; Myelocytes % 0; Promyelocytes % 0
[2019-01-22 11:00] LABS: Eosinophils % (manual) 1 (0-7); Lymphocytes % (manual) 41 (10.0-50.0); Monocytes % (manual) 16 (0-12); Reactive Lymphocytes 1
== END | disposition home or self-care (01) ==
LOC: SUR 08:05
PROVIDERS: ATTEND Urology
DX: N40.0 Benign prostatic hyperplasia without lower urinary tract symptoms (principal); N32.81 Overactive bladder; N20.0 Calculus of kidney
CPT/HCPCS: 36415; 80053; 81001; 85007; 85027; 85610; 85730

== ENCOUNTER → 2019-01-31 | Outpatient (CLI) | payer OTHER ==
[2019-01-31 08:25] LABS: Hematocrit 37.6 % (41.0-53.0); Hemoglobin 13.1 g/dL (13.5-17.5); Mean Corpuscular Hemoglobin 30.1 pg (28.0-32.0); Mean Corpuscular Hgb Conc. 34.8 g/dL (32.0-36.0); Mean Corpuscular Volume 86.3 fL (80.0-100.0); Platelet Count (auto) 63 10^3/uL (140-450); Red Blood Cells 4.36 10^6/uL (4.5-5.90); Red Cell Distribution Width 15.9 % (11.8-14.3)
[2019-01-31 08:43] LABS: Potassium 4.1 mmol/L (3.5-5.1)
[2019-01-31 08:46] LABS: Basophils % (manual) 0 (0.0-2.0); Blast Cells 0; Metamyelocytes % 0; Myelocytes % 0; Promyelocytes % 0; Reactive Lymphocytes 0; White Blood Cell 1.9 10^3/uL (4.4-10.8)
[2019-01-31 08:50] LABS: Bilirubin, Total 0.9 mg/dL (0.2-1.0); Total Protein 7.3 g/dL (6.4-8.2)
[2019-01-31 09:20] LABS: Band Neutrophils % (manual) 1; Eosinophils % (manual) 3 (0-7); Lymphocytes % (manual) 48 (10.0-50.0); Monocytes % (manual) 16 (0-12)
[2019-01-31 09:40] LABS: Ferritin 101.7 ng/mL (10-322); Folate (Folic Acid) > 24.00 ng/mL (5.38-24)
[2019-01-31 12:09] LABS: % Iron Saturation 26.3 % (20-55)
== END | disposition home or self-care (01) ==
LOC: LAB 07:46
PROVIDERS: ATTEND Internal Medicine
DX: D72.819 Decreased white blood cell count, unspecified (principal)
CPT/HCPCS: 36415; 80053; 82607; 82728; 82746; 83540; 83550; 83615; 85007; 85027; 86038

== ENCOUNTER 2019-03-09 18:11 | Emergency (ER) | payer MEDICARE, OTHER ==
[~2019-03-09] VITALS: Ht 172.7 cm; Wt 98.4 kg
[2019-03-09 19:35] LABS: Urine WBC None Seen /hpf (0 - 3)
[2019-03-09 20:12] LABS: Urine Bacteria NONE SEEN /hpf (None Seen); Urine Blood 3+ /uL (Negative)
[2019-03-09 20:20] LABS: Urine Specific Gravity 1.025 (1.001-1.035)
[2019-03-09 21:04] LABS: Red Cell Distribution Width 16.1 % (11.8-14.3)
[2019-03-09 21:06] LABS: Hematocrit 33.3 % (41.0-53.0); Hemoglobin 11.6 g/dL (13.5-17.5); Mean Corpuscular Volume 85.6 fL (80.0-100.0); Platelet Count (auto) 60 10^3/uL (140-450); Red Blood Cells 3.89 10^6/uL (4.5-5.90)
[2019-03-09 21:16] LABS: Band Neutrophils % (manual) 0; Basophils % (manual) 0 (0.0-2.0); Blast Cells 0; Metamyelocytes % 0; Myelocytes % 0; Promyelocytes % 0; Reactive Lymphocytes 0; White Blood Cell 1.5 10^3/uL (4.4-10.8)
[2019-03-09 21:19] LABS: Albumin 3.9 g/dL (3.4-5.0); Potassium 4.3 mmol/L (3.5-5.1)
[2019-03-09 21:22] LABS: BUN/Creatinine Ratio 22.2; Bilirubin, Total 0.7 mg/dL (0.2-1.0); Total Protein 6.9 g/dL (6.4-8.2)
[2019-03-09 21:28] LABS: Eosinophils % (manual) 3 (0-7); Lymphocytes % (manual) 29 (10.0-50.0); Monocytes % (manual) 15 (0-12)
[2019-03-09] MEDS ORDERED: ONDANSETRON HCL 4 MG/2 ML VIAL IV ONE (22:30)
[2019-03-09] MEDS ORDERED: MORPHINE SULFATE 4 MG/ML SYR/VIAL IV ONE (22:30)
[2019-03-09] MEDS ORDERED: SODIUM CHLORIDE 0.9% 1,000 ML IV ONE (22:30)
[2019-03-10] MEDS ORDERED: MORPHINE SULFATE 4 MG/ML SYR/VIAL IV ONE (02:45)
[2019-03-10 04:00] VITALS: BP 110/60
[2019-03-13] MEDS ORDERED: TAM04C PO (13:35)
[2019-03-13] MEDS ORDERED: WARF4TAB33 PO (13:35)
[2019-03-13] MEDS ORDERED: NITR-39 PO (13:42)
[2019-03-13] MEDS ORDERED: MULT1TAB56 PO (14:25)
[2019-03-13] MEDS ORDERED: ASCO500T11 PO (14:25)
== END 2019-03-10 04:18 | disposition home or self-care (01) ==
LOC: ER 18:11
DX: N20.0 Calculus of kidney (principal); G89.29 Other chronic pain; M54.5 Low back pain; I10 Essential (primary) hypertension; E78.5 Hyperlipidemia, unspecified; Z98.61 Coronary angioplasty status
CPT/HCPCS: 36415; 74176; 80053; 81001; 83880; 85007; 85027; 96374; 96375; 96376; 99284; J2270; J2405

== ENCOUNTER → 2019-04-16 | Day surgery (SDC) | payer OTHER ==
[2019-04-13 08:57] LABS: Hemoglobin 12.8 g/dL (13.5-17.5); Platelet Count (auto) 52 10^3/uL (140-450); Red Cell Distribution Width 15.9 % (11.8-14.3)
[2019-04-13 09:00] LABS: Hematocrit 37.1 % (41.0-53.0); Mean Corpuscular Hemoglobin 29.5 pg (28.0-32.0); Mean Corpuscular Hgb Conc. 34.5 g/dL (32.0-36.0); Mean Corpuscular Volume 85.3 fL (80.0-100.0); Red Blood Cells 4.35 10^6/uL (4.5-5.90); Urine Bacteria NONE SEEN /hpf (None Seen); Urine Blood Negative /uL (Negative); Urine Mucus FEW (None Seen); Urine Specific Gravity 1.015 (1.001-1.035); Urine WBC 2 /hpf (0 - 3)
[2019-04-13 09:03] LABS: Basophils % (manual) 0 (0.0-2.0); Blast Cells 0; Myelocytes % 0; Promyelocytes % 0; Reactive Lymphocytes 0
[2019-04-13 09:14] LABS: INR 1.24 (0.9-1.15); Partial Thromboplastin Time 28.2 sec (23.64-32.05)
[2019-04-13 09:18] LABS: Albumin 3.9 g/dL (3.4-5.0); Calcium 9.2 mg/dL (8.5-10.1); Potassium 4.2 mmol/L (3.5-5.1)
[2019-04-13 09:22] LABS: BUN/Creatinine Ratio 15.5; Bilirubin, Total 0.7 mg/dL (0.2-1.0)
[2019-04-13 09:23] LABS: Band Neutrophils % (manual) 3; Eosinophils % (manual) 4 (0-7); Lymphocytes % (manual) 27 (10.0-50.0); Metamyelocytes % 1; Monocytes % (manual) 14 (0-12)
[~2019-04-16] VITALS: Ht 175.3 cm; Wt 98.9 kg
[~2019-04-16] MED LIST changes: +CIPROFLOXACIN 400MG/200ML 200 ML IV ONE; +HYDROmorphone HCL 2 MG/ML VL IV PRN; +METOCLOPRAMIDE HCL 5MG/ml INJ 2ml VIAL IV PRN; +MORPHINE SULFATE 4 MG/ML SYR/VIAL IV PRN; +ceFAZolin 1GM/50ML 50 ML IV ONE; +fentaNYL CITRATE 100 MCG/2 ML VL IV PRN
[2019-04-16 12:25] VITALS: BP 144/72
== END | disposition home or self-care (01) ==
LOC: SUR 10:09
PROVIDERS: ATTEND Urology
DX: N32.0 Bladder-neck obstruction (principal); E66.9 Obesity, unspecified; M19.90 Unspecified osteoarthritis, unspecified site; Z79.899 Other long term (current) drug therapy; Z95.5 Presence of coronary angioplasty implant and graft; Z68.32 Body mass index [BMI] 32.0-32.9, adult; Z98.890 Other specified postprocedural states; Z96.653 Presence of artificial knee joint, bilateral
CPT/HCPCS: 36415; 80053; 81001; 85007; 85027; 85610; 85730; J0690; J0744

== ENCOUNTER → 2019-04-20 | Outpatient (CLI) | payer OTHER ==
[~2019-04-20] MED LIST changes: -CIPROFLOXACIN 400MG/200ML 200 ML IV ONE; -HYDROmorphone HCL 2 MG/ML VL IV PRN; -METOCLOPRAMIDE HCL 5MG/ml INJ 2ml VIAL IV PRN; -MORPHINE SULFATE 4 MG/ML SYR/VIAL IV PRN; -ceFAZolin 1GM/50ML 50 ML IV ONE; -fentaNYL CITRATE 100 MCG/2 ML VL IV PRN
== END | disposition home or self-care (01) ==
LOC: XYW 09:43
PROVIDERS: ATTEND Internal Medicine
DX: I08.2 Rheumatic disorders of both aortic and tricuspid valves (principal); D72.819 Decreased white blood cell count, unspecified; I27.20 Pulmonary hypertension, unspecified
CPT/HCPCS: 93306

== ENCOUNTER → 2019-04-24 | Outpatient (CLI) | payer OTHER | END | disposition home or self-care (01) | LOC: LAB 16:11 | PROVIDERS: ATTEND Internal Medicine Hematology & Oncology | DX: D61.818 Other pancytopenia (principal); R16.1 Splenomegaly, not elsewhere classified | CPT/HCPCS: 81206; 81207; 88189; 88291 ==

== ENCOUNTER → 2019-04-24 | Outpatient (CLI) | payer OTHER ==
[2019-04-24 13:53] LABS: Hematocrit 37.2 % (41.0-53.0); Hemoglobin 12.7 g/dL (13.5-17.5); Mean Corpuscular Hemoglobin 29.5 pg (28.0-32.0); Mean Corpuscular Hgb Conc. 34.2 g/dL (32.0-36.0); Mean Corpuscular Volume 86.3 fL (80.0-100.0); Platelet Count (auto) 65 10^3/uL (140-450); Red Blood Cells 4.31 10^6/uL (4.5-5.90); Red Cell Distribution Width 16.1 % (11.8-14.3)
[2019-04-24 13:59] LABS: White Blood Cell 1.5 10^3/uL (4.4-10.8)
[2019-04-24 14:00] LABS: Basophils % (manual) 0 (0.0-2.0); Blast Cells 0; Metamyelocytes % 0; Myelocytes % 0; Promyelocytes % 0; Reactive Lymphocytes 0
[2019-04-24 14:16] LABS: Band Neutrophils % (manual) 1; Eosinophils % (manual) 4 (0-7); Lymphocytes % (manual) 30 (10.0-50.0); Monocytes % (manual) 30 (0-12)
[2019-04-24 14:35] LABS: Albumin 4.1 g/dL (3.4-5.0); BUN/Creatinine Ratio 14.2; Calcium 9.4 mg/dL (8.5-10.1); Potassium 3.9 mmol/L (3.5-5.1)
[2019-04-24 14:37] LABS: Bilirubin, Total 0.6 mg/dL (0.2-1.0); Total Protein 7.2 g/dL (6.4-8.2)
[2019-04-25 07:06] LABS: Immunoglobulin G, Serum 849 mg/dL (700-1600)
== END | disposition home or self-care (01) ==
LOC: LAB 13:27
PROVIDERS: ATTEND Internal Medicine Hematology & Oncology
DX: D72.819 Decreased white blood cell count, unspecified (principal)
CPT/HCPCS: 36415; 80053; 82784; 83010; 83615; 85007; 85027; 86704; 86706; 86708; 86803; 86880; 86885; 87340

== ENCOUNTER → 2019-05-03 | Outpatient (CLI) | payer OTHER ==
[2019-05-03 15:49] LABS: Hemoglobin 12.5 g/dL (13.5-17.5)
[2019-05-03 15:51] LABS: Hematocrit 36.3 % (41.0-53.0); Mean Corpuscular Hemoglobin 29.5 pg (28.0-32.0); Mean Corpuscular Hgb Conc. 34.4 g/dL (32.0-36.0); Mean Corpuscular Volume 85.6 fL (80.0-100.0); Platelet Count (auto) 67 10^3/uL (140-450); Red Blood Cells 4.25 10^6/uL (4.5-5.90)
[2019-05-03 16:03] LABS: White Blood Cell 1.6 10^3/uL (4.4-10.8)
[2019-05-03 16:06] LABS: Band Neutrophils % (manual) 0; Basophils % (manual) 0 (0.0-2.0); Blast Cells 0; Metamyelocytes % 0; Myelocytes % 0; Promyelocytes % 0; Reactive Lymphocytes 0
[2019-05-03 17:53] LABS: Eosinophils % (manual) 6 (0-7); Lymphocytes % (manual) 29 (10.0-50.0); Monocytes % (manual) 10 (0-12)
== END | disposition home or self-care (01) ==
LOC: LAB 15:27
PROVIDERS: ATTEND Internal Medicine
DX: D72.89 Other specified disorders of white blood cells (principal)
CPT/HCPCS: 36415; 85007; 85027

== ENCOUNTER → 2019-06-04 | Outpatient (CLI) | payer OTHER ==
[2019-06-04 08:34] LABS: Basophils # (auto) 0 uL; Basophils % (auto) 1.4 % (0.0-2.0); Eosinophils # (auto) 0.1 uL; Eosinophils % (auto) 3.4 % (0.0-7.0); Hematocrit 42.5 % (41.0-53.0); Hemoglobin 14.2 g/dL (13.5-17.5); Lymphocytes # (auto) 0.5 uL; Lymphocytes % (auto) 21.6 % (10.0-50.0); Mean Corpuscular Hemoglobin 28.3 pg (28.0-32.0); Mean Corpuscular Hgb Conc. 33.5 g/dL (32.0-36.0); Mean Corpuscular Volume 84.6 fL (80.0-100.0); Monocytes # (auto) 0.4 uL; Neutrophils # (auto) 1.1 uL; Neutrophils % (auto) 53.2 % (37.0-80.0); Nucleated Red Blood Cells % 0.6 %; Platelet Count (auto) 67 10^3/uL (140-450); Red Blood Cells 5.02 10^6/uL (4.5-5.90); Red Cell Distribution Width 15.8 % (11.8-14.3); White Blood Cell 2.1 10^3/uL (4.4-10.8)
[2019-06-04 08:42] LABS: Monocytes % (auto) 20.4 % (0.0-12.0)
[2019-06-04 09:02] LABS: Albumin 4.4 g/dL (3.4-5.0); Calcium 9.4 mg/dL (8.5-10.1); Potassium 4.2 mmol/L (3.5-5.1)
[2019-06-04 09:06] LABS: BUN/Creatinine Ratio 14.8; Bilirubin, Total 0.9 mg/dL (0.2-1.0); Total Protein 7.9 g/dL (6.4-8.2)
[2019-06-04 10:19] LABS: Hepatitis B Surface Antibody Negative
[2019-06-04 13:08] LABS: Hepatitis C Antibody Negative (Negative)
== END | disposition home or self-care (01) ==
LOC: LAB 08:05
PROVIDERS: ATTEND Internal Medicine
DX: D47.9 Neoplasm of uncertain behavior of lymphoid, hematopoietic and related tissue, unspecified (principal); D72.819 Decreased white blood cell count, unspecified
CPT/HCPCS: 36415; 80053; 82728; 82784; 83540; 83550; 83883; 84155; 84165; 85025; 86334; 86706; 86803

== ENCOUNTER → 2019-06-08 | Outpatient (CLI) | payer OTHER ==
[~2019-06-08] VITALS: Ht 175.3 cm; Wt 99.8 kg
[~2019-06-08] MED LIST changes: +ADENOSINE 84 MG in GIVE UN-DILUTED 0 ML IV ONE
== END | disposition home or self-care (01) ==
LOC: XY 06:40
PROVIDERS: ATTEND Internal Medicine
DX: R07.9 Chest pain, unspecified (principal); J44.9 Chronic obstructive pulmonary disease, unspecified; E78.00 Pure hypercholesterolemia, unspecified; Z95.1 Presence of aortocoronary bypass graft; Z95.5 Presence of coronary angioplasty implant and graft
CPT/HCPCS: 78452; 93017; A9500; J0153

== ENCOUNTER → 2019-07-25 | Outpatient (CLI) | payer OTHER, MEDICARE ==
[~2019-07-25] MED LIST changes: -ADENOSINE 84 MG in GIVE UN-DILUTED 0 ML IV ONE
[2019-07-25 09:18] LABS: Basophils # (auto) 0 10 ^3/uL (0-0.2); Basophils % (auto) 1.2 % (0.0-2.0); Eosinophils # (auto) 0.1 10 ^3/uL (0-0.8); Hematocrit 39.3 % (41.0-53.0); Hemoglobin 13.6 g/dL (13.5-17.5); Lymphocytes # (auto) 0.9 10 ^3/uL (0.4-5.4); Lymphocytes % (auto) 22.6 % (10.0-50.0); Mean Corpuscular Hemoglobin 29.1 pg (28.0-32.0); Mean Corpuscular Hgb Conc. 34.5 g/dL (32.0-36.0); Mean Corpuscular Volume 84.3 fL (80.0-100.0); Monocytes # (auto) 0.5 10 ^3/uL (0-1.3); Monocytes % (auto) 12.9 % (0.0-12.0); Neutrophils # (auto) 2.3 10 ^3/uL (1.6-8.6); Neutrophils % (auto) 60.3 % (37.0-80.0); Nucleated Red Blood Cells % 0.1 %; Platelet Count (auto) 105 10^3/uL (140-450); Red Blood Cells 4.66 10^6/uL (4.5-5.90); Red Cell Distribution Width 17.8 % (11.8-14.3); White Blood Cell 3.8 10^3/uL (4.4-10.8)
== END | disposition home or self-care (01) ==
LOC: LAB 09:02
PROVIDERS: ATTEND Internal Medicine
DX: C83.00 Small cell B-cell lymphoma, unspecified site (principal)
CPT/HCPCS: 36415; 85025

== ENCOUNTER → 2019-08-01 | Outpatient (CLI) | payer OTHER, MEDICARE ==
[~2019-08-01] MED LIST changes: +ALL300T PO
[2019-08-01 09:25] LABS: Basophils # (auto) 0.1 10 ^3/uL (0-0.2); Basophils % (auto) 2.5 % (0.0-2.0); Eosinophils # (auto) 0.1 10 ^3/uL (0-0.8); Eosinophils % (auto) 2.4 % (0.0-7.0); Hematocrit 40.2 % (41.0-53.0); Lymphocytes # (auto) 0.8 10 ^3/uL (0.4-5.4); Mean Corpuscular Hemoglobin 29.9 pg (28.0-32.0); Mean Corpuscular Hgb Conc. 34.7 g/dL (32.0-36.0); Mean Corpuscular Volume 85.9 fL (80.0-100.0); Monocytes # (auto) 0.4 10 ^3/uL (0-1.3); Monocytes % (auto) 10.1 % (0.0-12.0); Neutrophils # (auto) 2.6 10 ^3/uL (1.6-8.6); Nucleated Red Blood Cells % 0.6 %; Platelet Count (auto) 97 10^3/uL (140-450); Red Blood Cells 4.68 10^6/uL (4.5-5.90); Red Cell Distribution Width 18.6 % (11.8-14.3)
[2019-08-01 09:48] LABS: Calcium 8.7 mg/dL (8.5-10.1); Potassium 3.9 mmol/L (3.5-5.1)
[2019-08-01 09:50] LABS: % Iron Saturation 31.8 % (20-55)
[2019-08-01 09:51] LABS: BUN/Creatinine Ratio 22.2; Bilirubin, Total 0.6 mg/dL (0.2-1.0); Total Protein 7.3 g/dL (6.4-8.2); Uric Acid 3.7 mg/dL (3.5-7.2)
[2019-08-01 09:58] LABS: Ferritin 81.7 ng/mL (10-322)
[2019-08-01 09:59] LABS: Folate (Folic Acid) > 24.00 ng/mL (5.38-24)
[2019-08-02 07:06] LABS: Immunoglobulin G, Serum 873 mg/dL (603-1613)
== END | disposition home or self-care (01) ==
LOC: LAB 09:08
PROVIDERS: ATTEND Internal Medicine Hematology & Oncology
DX: D72.819 Decreased white blood cell count, unspecified (principal); R16.1 Splenomegaly, not elsewhere classified; D47.9 Neoplasm of uncertain behavior of lymphoid, hematopoietic and related tissue, unspecified
CPT/HCPCS: 36415; 80053; 82607; 82728; 82746; 82784; 83540; 83550; 83615; 83883; 84550; 85025; 86334

== ENCOUNTER 2019-08-09 06:24 | Day surgery (SDC) | payer OTHER ==
[2019-08-08 13:12] LABS: Urine Bacteria NONE SEEN /hpf (None Seen); Urine Blood Negative /uL (Negative); Urine Mucus FEW (None Seen); Urine Specific Gravity 1.014 (1.001-1.035); Urine WBC 2 /hpf (0 - 3)
[2019-08-08 13:15] LABS: Basophils # (auto) 0.1 10 ^3/uL (0-0.2); Basophils % (auto) 1.5 % (0.0-2.0); Eosinophils # (auto) 0.1 10 ^3/uL (0-0.8); Eosinophils % (auto) 3.1 % (0.0-7.0); Hematocrit 43.3 % (41.0-53.0); Hemoglobin 14.6 g/dL (13.5-17.5); Lymphocytes # (auto) 0.8 10 ^3/uL (0.4-5.4); Lymphocytes % (auto) 22.2 % (10.0-50.0); Mean Corpuscular Hemoglobin 29.3 pg (28.0-32.0); Mean Corpuscular Hgb Conc. 33.7 g/dL (32.0-36.0); Mean Corpuscular Volume 86.9 fL (80.0-100.0); Monocytes # (auto) 0.4 10 ^3/uL (0-1.3); Monocytes % (auto) 11.6 % (0.0-12.0); Neutrophils # (auto) 2.3 10 ^3/uL (1.6-8.6); Neutrophils % (auto) 61.6 % (37.0-80.0); Nucleated Red Blood Cells % 0.3 %; Platelet Count (auto) 98 10^3/uL (140-450); Red Blood Cells 4.98 10^6/uL (4.5-5.90); Red Cell Distribution Width 18.6 % (11.8-14.3); White Blood Cell 3.8 10^3/uL (4.4-10.8)
[2019-08-08 13:23] LABS: INR 1.95 (0.9-1.15); Partial Thromboplastin Time 34.8 sec (23.64-32.05)
[2019-08-08 13:29] LABS: Albumin 4.4 g/dL (3.4-5.0); Calcium 9.4 mg/dL (8.5-10.1); Potassium 4.1 mmol/L (3.5-5.1)
[2019-08-08 13:33] LABS: BUN/Creatinine Ratio 18.9; Bilirubin, Total 0.8 mg/dL (0.2-1.0); Total Protein 7.9 g/dL (6.4-8.2)
[~2019-08-09] VITALS: Ht 175.3 cm; Wt 99.8 kg
[~2019-08-09 06:24] MED LIST changes: -BACL10TA PO; -DOXA4TAB5 PO; -SOLI10TA7 PO; -TRAM50TA2 PO
[2019-08-09] MEDS ORDERED: SUCCINYLCHOLINE CHLORIDE 20 MG/ML 10ML VIAL IV ONE (07:21)
[2019-08-09 07:43] LABS: INR 1.52 (0.9-1.15); Partial Thromboplastin Time 31.8 sec (23.64-32.05)
[2019-08-09] MEDS ORDERED: CIPROFLOXACIN 400MG/200ML 200 ML IV ONE (07:57)
[2019-08-09] MEDS ORDERED: fentaNYL CITRATE 100 MCG/2 ML VL ONE (08:10)
[2019-08-09] MEDS ORDERED: PROPOFOL 10 MG/ML 20 ML IV ONE (08:20)
[2019-08-09] MEDS ORDERED: ONDANSETRON HCL 4 MG/2 ML VIAL IV PRN (08:45)
[2019-08-09] MEDS ORDERED: hydrALAZINE HCL 20 MG/ML VL IV PRN (08:45)
[2019-08-09] MEDS ORDERED: ePHEDrine SULFATE 50 MG/ML AMP IV PRN (08:45)
[2019-08-09] MEDS ORDERED: fentaNYL CITRATE 100 MCG/2 ML VL IV ONE (08:45)
[2019-08-09] MEDS ORDERED: fentaNYL CITRATE 100 MCG/2 ML VL IV PRN (08:45)
[2019-08-09 09:50] VITALS: BP 136/67
== END 2019-08-09 10:05 | disposition home or self-care (01) ==
LOC: SUR 06:24
PROVIDERS: ATTEND Urology
DX: N32.0 Bladder-neck obstruction (principal); E66.9 Obesity, unspecified; Z79.899 Other long term (current) drug therapy; Z98.890 Other specified postprocedural states
CPT/HCPCS: 36415; 51715; 52500; 80053; 81001; 85025; 85610; 85730; 88305; C5275; J0330; J0744; J2704; J3010; Q4100

== ENCOUNTER → 2019-08-23 | Outpatient (CLI) | payer OTHER | END | disposition home or self-care (01) | LOC: LAB 16:00 | PROVIDERS: ATTEND Urology | DX: N39.0 Urinary tract infection, site not specified (principal) | CPT/HCPCS: 87086 ==

== ENCOUNTER 2019-08-24 22:21 | Emergency (ER) | payer OTHER ==
[~2019-08-24] VITALS: Ht 172.7 cm; Wt 99.8 kg
[2019-08-25] MEDS ORDERED: ONDANSETRON HCL 4 MG/2 ML VIAL IV ONE (01:00)
[2019-08-25] MEDS ORDERED: MORPHINE SULFATE 4 MG/ML SYR/VIAL IV ONE (01:00)
[2019-08-25 02:17] LABS: Basophils # (auto) 0.1 10 ^3/uL (0-0.2); Basophils % (auto) 0.9 % (0.0-2.0); Eosinophils # (auto) 0.1 10 ^3/uL (0-0.8); Eosinophils % (auto) 1.7 % (0.0-7.0); Hematocrit 40.2 % (41.0-53.0); Hemoglobin 13.7 g/dL (13.5-17.5); Lymphocytes # (auto) 0.5 10 ^3/uL (0.4-5.4); Lymphocytes % (auto) 9.1 % (10.0-50.0); Mean Corpuscular Hemoglobin 29.8 pg (28.0-32.0); Mean Corpuscular Hgb Conc. 34.1 g/dL (32.0-36.0); Mean Corpuscular Volume 87.4 fL (80.0-100.0); Monocytes # (auto) 0.5 10 ^3/uL (0-1.3); Monocytes % (auto) 8.8 % (0.0-12.0); Neutrophils # (auto) 4.3 10 ^3/uL (1.6-8.6); Neutrophils % (auto) 79.5 % (37.0-80.0); Nucleated Red Blood Cells % 0.2 %; Platelet Count (auto) 105 10^3/uL (140-450); Red Cell Distribution Width 18.5 % (11.8-14.3); White Blood Cell 5.4 10^3/uL (4.4-10.8)
[2019-08-25 02:30] LABS: Calcium 8.9 mg/dL (8.5-10.1); Potassium 3.9 mmol/L (3.5-5.1)
[2019-08-25 02:33] LABS: BUN/Creatinine Ratio 19.1
[2019-08-25 02:36] LABS: INR 1.95 (0.9-1.15); Partial Thromboplastin Time 34.2 sec (23.64-32.05)
[2019-08-25 02:46] LABS: Total Protein 7.4 g/dL (6.4-8.2)
[2019-08-25 04:15] VITALS: BP 111/75
[2019-08-27] MEDS ORDERED: WARF4TAB33 PO ×2 (12:56)
[2019-08-27] MEDS ORDERED: HYDR-531 PO ×2 (12:58)
== END 2019-08-25 04:30 | disposition home or self-care (01) ==
LOC: EDBD 22:21 → ER 22:25
DX: R33.9 Retention of urine, unspecified (principal); R31.9 Hematuria, unspecified; I10 Essential (primary) hypertension; E78.5 Hyperlipidemia, unspecified; Z79.899 Other long term (current) drug therapy
CPT/HCPCS: 36415; 51702; 80053; 85025; 85610; 85730; 96374; 96375; 99284; J2270; J2405

== ENCOUNTER 2019-08-26 01:42 | Inpatient (IN) | payer OTHER ==
[~2019-08-26] VITALS: Ht 172.7 cm; Wt 97.4 kg
[2019-08-26 03:30] LABS: Urine Blood 3+ /uL (Negative)
[2019-08-26 03:37] LABS: Urine Bacteria MOD /hpf (None Seen); Urine Hyaline Cast FEW /lpf (0 - 2); Urine Mucus FEW (None Seen); Urine WBC 27 /hpf (0 - 3)
[2019-08-26 03:38] LABS: Urine Specific Gravity 1.029 (1.001-1.035)
[2019-08-26] MEDS ORDERED: LIDOCAINE 2% JELLY 11ml (GLYDO) UR ONE ×2 (03:45→05:30)
[2019-08-26] MEDS ORDERED: ACETAMINOPHEN 325 MG TAB PO PRN (04:30)
[2019-08-26] MEDS ORDERED: ONDANSETRON HCL 4 MG/2 ML VIAL IV PRN (04:30)
[2019-08-26] MEDS ORDERED: HYDROcodone-ACET 5/325MG TAB PO PRN (04:30)
[2019-08-26] MEDS ORDERED: DOCUSATE SOD 100 MG CAP PO PRN (04:30)
[2019-08-26] MEDS ORDERED: HYDROmorphone HCL 2 MG/ML VL IV ONE (04:30)
[2019-08-26] MEDS: SODIUM CHLORIDE 0.9% 1,000 ML IV SCH ×2 (06:22→14:30)
--- NOTE | 2019-08-26 06:50 | NUR ---
MS admit from ER Patient admitted to [place] Patient oriented to primary RN, unit, room, bed, and unit policies regarding patient care and visiting hours. Patient weighed by bed scale and encouraged to call if they need something. Bed is in lowest locked position, two side rails raised, and call lawrence within reach, bed alarm activated for safety, gait unsteady. Continuous bladder irrigation running and osullivan is hung below the bladder and draining to gravity. All questions and concerns addressed, patient verbalized understanding.
[2019-08-26 07:10] VITALS: BP 144/85
[2019-08-26 07:37] LABS: Basophils # (auto) 0 10 ^3/uL (0-0.2); Basophils % (auto) 1.4 % (0.0-2.0); Eosinophils # (auto) 0.1 10 ^3/uL (0-0.8); Eosinophils % (auto) 2.9 % (0.0-7.0); Hematocrit 36.3 % (41.0-53.0); Hemoglobin 12.4 g/dL (13.5-17.5); Lymphocytes # (auto) 0.6 10 ^3/uL (0.4-5.4); Lymphocytes % (auto) 16.7 % (10.0-50.0); Mean Corpuscular Hemoglobin 29.9 pg (28.0-32.0); Mean Corpuscular Hgb Conc. 34.1 g/dL (32.0-36.0); Mean Corpuscular Volume 87.5 fL (80.0-100.0); Monocytes # (auto) 0.4 10 ^3/uL (0-1.3); Monocytes % (auto) 11.1 % (0.0-12.0); Neutrophils # (auto) 2.4 10 ^3/uL (1.6-8.6); Neutrophils % (auto) 67.9 % (37.0-80.0); Nucleated Red Blood Cells % 0.2 %; Platelet Count (auto) 91 10^3/uL (140-450); Red Blood Cells 4.15 10^6/uL (4.5-5.90); Red Cell Distribution Width 18.4 % (11.8-14.3); White Blood Cell 3.5 10^3/uL (4.4-10.8)
--- NOTE | 2019-08-26 07:45 | NUR ---
OPENING NOTE ASSUMED CARE OF PT. PT ALERT AND ORIENTED. NO S/S OF SOB OR DISTRESS NOTED. BED SET TO LOWEST POSITION/LOCKED, BEDSIDE RAILS UP X2, CALL LIGHT WITHIN REACH. INSTRUCTED PATIENT TO CALL FOR ASSISTANCE. UPDATED ON POC. PT VERBALIZED UNDERSTANDING. WILL CONTINUE TO MONITOR Q1H AND PRN.
[2019-08-26 07:53] LABS: Calcium 8.3 mg/dL (8.5-10.1); Potassium 3.6 mmol/L (3.5-5.1)
--- NOTE | 2019-08-26 07:53 | NUR ---
total of 5400 ml emptied from osullivan since arrival to unit. Will continue to monitor.
[2019-08-26 07:56] LABS: BUN/Creatinine Ratio 19.5
--- NOTE | 2019-08-26 07:58 | NUR ---
1050 ml drained from osullivan bag, care endorsed to Nora day shift RN.
[2019-08-26 08:20] VITALS: BP 144/85
[2019-08-26] MEDS: TAMSULOSIN HYDROCHLORIDE 0.4 MG CAP PO SCH (09:56)
[2019-08-26] MEDS: cefTRIAXone 1GM/50ML D5W 50 ML IV SCH (09:59)
[2019-08-26 13:00] VITALS: BP 117/64
[2019-08-26 17:00] VITALS: BP 111/67
--- NOTE | 2019-08-26 19:12 | NUR ---
OPENING SHIFT NOTE: ASSUMED CARE OF PATIENT. PATIENT AWAKE, ALERT, AND ORIENTED X 4. NO S/S OF SOB OR DISTRESS. BED IS IN LOWEST, LOCKED POSITION WITH TWO SIDE RAILS RAISED AND CALL LOPEZ WITHIN REACH. CBI RUNNING AND BURNETT HUNG BELOW THE BLADDER AND DRAINING TO GRAVITY. INSTRUCTED ON POC AND ENCOURAGED TO CALL FOR ASSISTANCE, ALL QUESTIONS ANSWERED AT THIS TIME, PATIENT VERBALIZES UNDERSTANDING. WILL CONTINUE TO MONITOR FOR Q1 HR AND PRN.
[2019-08-26] MEDS: ATORVASTATIN 20 MG TAB PO SCH (19:28)
[2019-08-26 20:00] VITALS: BP 116/64
--- NOTE | 2019-08-26 22:30 | NUR ---
TOTAL OF 9350ML EMPTIED FROM BURNETT SINCE BEGINNING OF SHIFT. THREE WAY CONTINUOUS BLADDER IRRIGATION RUNNING WITH LEAKING FROM URETHRA AND SLOWED DRAINAGE FROM BURNETT BAG, PATIENT COMPLAINS OF FULLNESS AND PRESSURE IN BLADDER. BURNETT FLUSHED AND IRRIGATED AND SEVERAL LARGE CLOTS ASPIRATED FROM BURNETT. PATIENT STATES RELIEF FROM BLADDER PRESSURE AND BURNETT DRAINING NOW.
[2019-08-26 22:47] VITALS: BP 116/64
[2019-08-26] MEDS: MORPHINE SULFATE 4 MG/ML SYR/VIAL IV PRN (22:55)
[2019-08-27] MEDS: SODIUM CHLORIDE 0.9% 1,000 ML IV SCH ×3 (00:30→20:30)
[2019-08-27] MEDS: MORPHINE SULFATE 4 MG/ML SYR/VIAL IV PRN (03:26)
[2019-08-27 05:11] VITALS: BP 126/68
[2019-08-27 07:15] LABS: Basophils # (auto) 0 10 ^3/uL (0-0.2); Basophils % (auto) 1.1 % (0.0-2.0); Eosinophils # (auto) 0.1 10 ^3/uL (0-0.8); Eosinophils % (auto) 2.9 % (0.0-7.0); Hematocrit 35.5 % (41.0-53.0); Hemoglobin 12.4 g/dL (13.5-17.5); Lymphocytes # (auto) 0.5 10 ^3/uL (0.4-5.4); Lymphocytes % (auto) 14.6 % (10.0-50.0); Mean Corpuscular Hemoglobin 30.5 pg (28.0-32.0); Mean Corpuscular Hgb Conc. 34.8 g/dL (32.0-36.0); Mean Corpuscular Volume 87.5 fL (80.0-100.0); Monocytes # (auto) 0.4 10 ^3/uL (0-1.3); Monocytes % (auto) 11.4 % (0.0-12.0); Neutrophils # (auto) 2.4 10 ^3/uL (1.6-8.6); Nucleated Red Blood Cells % 0.1 %; Platelet Count (auto) 85 10^3/uL (140-450); Red Blood Cells 4.06 10^6/uL (4.5-5.90); Red Cell Distribution Width 18.5 % (11.8-14.3); White Blood Cell 3.4 10^3/uL (4.4-10.8)
[2019-08-27 07:23] LABS: Albumin 3.6 g/dL (3.4-5.0); BUN/Creatinine Ratio 20.3; Calcium 8.9 mg/dL (8.5-10.1)
[2019-08-27 07:26] LABS: Bilirubin, Total 0.7 mg/dL (0.2-1.0); Total Protein 6.5 g/dL (6.4-8.2)
--- NOTE | 2019-08-27 07:30 | NUR ---
Opening Shift Note Assuming care of patient at this time. Patient is awake and alert. Patient denies pain. Patient does express some discomfort due to running of continuous bladder irrigation. Bed is locked and lowered with side rails up x2. Instructed patient on the plan of care for today and to call for assistance as needed. Call light within reach. Will continue to round hourly and as needed.
[2019-08-27 09:00] VITALS: BP 124/75
[2019-08-27] MEDS: cefTRIAXone 1GM/50ML D5W 50 ML IV SCH (10:39)
[2019-08-27] MEDS: TAMSULOSIN HYDROCHLORIDE 0.4 MG CAP PO SCH (10:40)
[2019-08-27] MEDS: MORPHINE SULF INJ 2 MG/ML SYRINGE 1ML IV PRN ×2 (11:14→22:21)
--- NOTE | 2019-08-27 11:14 | NUR ---
Pain Patient is complaining of pain 11/25. Patient is asking for morphine because Ingram causes patient to be constipated. Educated patient that morphine has a similar side effect. Patient still requests morphine. Will administer according to doctor's orders.
--- NOTE | 2019-08-27 11:44 | NUR ---
Pain Reassessment Patient is resting with eyes closed. When asked, patient states his pain is completely relieved.
[2019-08-27] MEDS ORDERED: WARF4TAB33 PO (12:56)
[2019-08-27] MEDS ORDERED: HYDR-531 PO (12:58)
[2019-08-27 13:00] VITALS: BP 18/66
[2019-08-27 17:00] VITALS: BP 143/66
[2019-08-27] MEDS: ATORVASTATIN 20 MG TAB PO SCH (17:57)
--- NOTE | 2019-08-27 18:06 | NUR ---
Urology Consult HANNAH Garcia in to see patient at this time. Provider has clamped bladder irrigation. Provider instructs that if patient's output becomes bloody or if patient feels that fullness again that CBI can be resumed. Patient is clear for discharge. Patient should be instructed on osullivan care and manual clot removal so that patient can do these procedures at home.
--- NOTE | 2019-08-27 18:14 | NUR ---
Osullivan Drainage Patient has had a total of 6000 from osullivan catheter on this shift. Continuous bladder irrigation has been clamped by provider.
--- NOTE | 2019-08-27 20:00 | NUR ---
Opening Shift Note Assumed care of patient, awake and alert. No S/S of distress/SOB or pain. Wang bag draining light lucía urine patient denies fullness or pain. Instructed on POC and to call for assist PRN, will continue to monitor for changes Q1hr and PRN.bed in low position call light within reach.
[2019-08-27 21:34] VITALS: BP 135/76
--- NOTE | 2019-08-27 22:21 | NUR ---
pain patient reports pain8/10 due to arthritis. patient medicated per protocol
--- NOTE | 2019-08-27 22:51 | NUR ---
patient reports 0/10 pain
[2019-08-28] MEDS: MORPHINE SULF INJ 2 MG/ML SYRINGE 1ML IV PRN (03:49)
--- NOTE | 2019-08-28 03:49 | NUR ---
pain pain 8/10 to back. patient medicated per protocol
--- NOTE | 2019-08-28 04:19 | NUR ---
pain reassement patient is sleeping bilateral chest rise and fall. no signs of distress sob or pain
[2019-08-28 04:35] VITALS: BP 130/70
[2019-08-28] MEDS: SODIUM CHLORIDE 0.9% 1,000 ML IV SCH ×2 (06:27→16:30)
--- NOTE | 2019-08-28 06:47 | NUR ---
patient rounds patient is in bed sleeping no signs of sob distress or pain. rr 16. osullivan catheter patent and draining. bed in low position call light within reach.
--- NOTE | 2019-08-28 06:55 | NUR ---
report given to dayshift rn. patient denies sob distress or pain
[2019-08-28 07:11] LABS: Basophils # (auto) 0 10 ^3/uL (0-0.2); Eosinophils # (auto) 0.1 10 ^3/uL (0-0.8); Eosinophils % (auto) 3.2 % (0.0-7.0); Hematocrit 36.4 % (41.0-53.0); Hemoglobin 12.7 g/dL (13.5-17.5); Lymphocytes # (auto) 0.3 10 ^3/uL (0.4-5.4); Lymphocytes % (auto) 8.3 % (10.0-50.0); Mean Corpuscular Hemoglobin 30.7 pg (28.0-32.0); Mean Corpuscular Volume 87.8 fL (80.0-100.0); Monocytes # (auto) 0.4 10 ^3/uL (0-1.3); Monocytes % (auto) 10.7 % (0.0-12.0); Neutrophils # (auto) 2.7 10 ^3/uL (1.6-8.6); Neutrophils % (auto) 76.8 % (37.0-80.0); Nucleated Red Blood Cells % 0.1 %; Platelet Count (auto) 85 10^3/uL (140-450); Red Blood Cells 4.14 10^6/uL (4.5-5.90); Red Cell Distribution Width 18.3 % (11.8-14.3); White Blood Cell 3.6 10^3/uL (4.4-10.8)
--- NOTE | 2019-08-28 07:30 | NUR ---
Opening Shift Note Assuming care of patient at this time. Patient is awake and alert. Patient denies pain. Patient expresses desire to go home. Bed is locked and lowered with side rails up x2. Instructed patient on the plan of care for today and to call for assistance as needed. Call light within reach. Will continue to round hourly and as needed.
[2019-08-28 07:33] LABS: BUN/Creatinine Ratio 12.7; Calcium 8.8 mg/dL (8.5-10.1)
[2019-08-28 09:00] VITALS: BP 130/57
[2019-08-28] MEDS: cefTRIAXone 1GM/50ML D5W 50 ML IV SCH (09:39)
[2019-08-28] MEDS: TAMSULOSIN HYDROCHLORIDE 0.4 MG CAP PO SCH (09:39)
[2019-08-28 13:00] VITALS: BP 114/68
--- NOTE | 2019-08-28 14:44 | NUR ---
D/C Planning Per consult for home health-Wang Catheter care. Order was reviewed and approved by [facility]. Faxed clinical information to [facility] [place]. Per Jackie with [facility] ) patient has been accepted and service to start within 24-48hrs upon d/c day. Provided authorization to home health agency [id number]. Informed AUBRIE Bernal.
--- NOTE | 2019-08-28 16:21 | NUR ---
assessment Patient is a 74 year old male who is alert and oriented. Patients cognitive abilities are intact. Prior to admission patient lived home alone and functioned independently. Patient informed me he is able to care for his own ADLs. Per patient he will return home to his prior living arrangements post discharge and family will transport him home. Patient came to ER for blood in urine. Per patient his PCP is Dr Ponce. Patient feels safe returning home. Patient has no post discharge needs identified. I informed patient he has a right to speak to a social security specialist regarding all care. I informed patient he has a right to participate in any and all discharge planning. Patient has a POA and advanced directive. Patient verbalized understanding and agreed to discharge plan. Addendum: 08/28/19 at 1622 by Viri PALACIO Amended: Links added.
--- NOTE | 2019-08-28 17:37 | NUR ---
Discharge Discharge instructions given as ordered. Encourage to follow up with PMD as instructed. All questions and concerns addressed. Patient verbalized understanding. Medication reconciliation form completed and copy given to patient. IV removed with catheter intact, pressure dressing applied, 3-way osullivan discharged with patient and converted to leg bag. Patient instructed on how to irrigate with saline. Patient taken to vehicle via wheelchair with all personal belongings, accompanied by staff. No distress noted at time of departure.
== END 2019-08-28 17:30 | disposition home or self-care (01) | DRG 699 ==
LOC: ER 01:43 → OVERFLOW 01:44 → WEST WING 05:36
PROVIDERS: ADMIT Hospitalist; ATTEND Internal Medicine
DX: N32.0 Bladder-neck obstruction (principal); N39.0 Urinary tract infection, site not specified; R31.0 Gross hematuria; R33.9 Retention of urine, unspecified; M10.9 Gout, unspecified; I25.10 Atherosclerotic heart disease of native coronary artery without angina pectoris; I10 Essential (primary) hypertension; D63.8 Anemia in other chronic diseases classified elsewhere; E78.5 Hyperlipidemia, unspecified; Z82.49 Family history of ischemic heart disease and other diseases of the circulatory system; Z83.3 Family history of diabetes mellitus; Z87.442 Personal history of urinary calculi; Z95.5 Presence of coronary angioplasty implant and graft; Z79.899 Other long term (current) drug therapy
CPT/HCPCS: 36415; 51702; 71045; 80048; 80053; 81001; 84443; 85025; 87086; 96374; G0378; J0696

== ENCOUNTER → 2019-09-06 | Outpatient (CLI) | payer OTHER ==
[~2019-09-06] MED LIST changes: -HYDR-4833 PO; +HYDR-531 PO
== END | disposition home or self-care (01) ==
LOC: LAB 14:07
PROVIDERS: ATTEND Urology
DX: N39.0 Urinary tract infection, site not specified (principal)
CPT/HCPCS: 87086

== ENCOUNTER → 2019-10-11 | Outpatient (CLI) | payer OTHER | END | disposition home or self-care (01) | LOC: LAB 15:42 | PROVIDERS: ATTEND Urology | DX: N39.0 Urinary tract infection, site not specified (principal) | CPT/HCPCS: 87086 ==

== ENCOUNTER → 2019-10-25 | Outpatient (CLI) | payer OTHER ==
[2019-10-25 08:47] LABS: Basophils # (auto) 0 10 ^3/uL (0-0.2); Basophils % (auto) 0.8 % (0.0-2.0); Eosinophils # (auto) 0.1 10 ^3/uL (0-0.8); Eosinophils % (auto) 1.2 % (0.0-7.0); Hematocrit 37.5 % (41.0-53.0); Hemoglobin 12.9 g/dL (13.5-17.5); Lymphocytes # (auto) 1.1 10 ^3/uL (0.4-5.4); Lymphocytes % (auto) 21.8 % (10.0-50.0); Mean Corpuscular Hemoglobin 30.6 pg (28.0-32.0); Mean Corpuscular Hgb Conc. 34.5 g/dL (32.0-36.0); Mean Corpuscular Volume 88.6 fL (80.0-100.0); Monocytes # (auto) 0.9 10 ^3/uL (0-1.3); Monocytes % (auto) 17.9 % (0.0-12.0); Neutrophils % (auto) 58.3 % (37.0-80.0); Nucleated Red Blood Cells % 0.1 %; Red Blood Cells 4.23 10^6/uL (4.5-5.90); Red Cell Distribution Width 14.8 % (11.8-14.3); White Blood Cell 5.2 10^3/uL (4.4-10.8)
[2019-10-25 09:10] LABS: Platelet Count (auto) 98 10^3/uL (140-450)
[2019-10-25 09:41] LABS: Albumin 3.7 g/dL (3.4-5.0); BUN/Creatinine Ratio 27.4; Bilirubin, Total 1.1 mg/dL (0.2-1.0); Calcium 9.2 mg/dL (8.5-10.1); Total Protein 7.3 g/dL (6.4-8.2)
== END | disposition home or self-care (01) ==
LOC: LAB 08:14
PROVIDERS: ATTEND Internal Medicine
DX: C85.90 Non-Hodgkin lymphoma, unspecified, unspecified site (principal)
CPT/HCPCS: 36415; 80053; 83615; 85025

== ENCOUNTER → 2019-11-28 | Outpatient (CLI) | payer OTHER | END | disposition home or self-care (01) | LOC: LAB 07:54 | PROVIDERS: ATTEND Urology | DX: N39.0 Urinary tract infection, site not specified (principal) | CPT/HCPCS: 87086 ==

== ENCOUNTER → 2019-12-20 | Outpatient (CLI) | payer OTHER ==
[2019-12-20 08:04] LABS: Basophils # (auto) 0.1 10 ^3/uL (0-0.2); Basophils % (auto) 1.3 % (0.0-2.0); Eosinophils # (auto) 0.1 10 ^3/uL (0-0.8); Eosinophils % (auto) 2.9 % (0.0-7.0); Hematocrit 41.9 % (41.0-53.0); Hemoglobin 14.4 g/dL (13.5-17.5); Lymphocytes # (auto) 1.4 10 ^3/uL (0.4-5.4); Lymphocytes % (auto) 31.6 % (10.0-50.0); Mean Corpuscular Hemoglobin 30.6 pg (28.0-32.0); Mean Corpuscular Hgb Conc. 34.4 g/dL (32.0-36.0); Monocytes # (auto) 0.6 10 ^3/uL (0-1.3); Monocytes % (auto) 13.6 % (0.0-12.0); Neutrophils # (auto) 2.2 10 ^3/uL (1.6-8.6); Neutrophils % (auto) 50.6 % (37.0-80.0); Nucleated Red Blood Cells % 0.2 %; Platelet Count (auto) 98 10^3/uL (140-450); Red Blood Cells 4.71 10^6/uL (4.5-5.90); White Blood Cell 4.3 10^3/uL (4.4-10.8)
[2019-12-20 08:25] LABS: Albumin 4.2 g/dL (3.4-5.0); Calcium 9.3 mg/dL (8.5-10.1)
[2019-12-20 08:29] LABS: BUN/Creatinine Ratio 16.3; Bilirubin, Total 0.6 mg/dL (0.2-1.0); Total Protein 7.1 g/dL (6.4-8.2)
== END | disposition home or self-care (01) ==
LOC: LAB 07:47
PROVIDERS: ATTEND Internal Medicine
DX: C85.90 Non-Hodgkin lymphoma, unspecified, unspecified site (principal); C83.00 Small cell B-cell lymphoma, unspecified site
CPT/HCPCS: 36415; 80053; 83615; 85025

== ENCOUNTER → 2020-02-13 | Outpatient (CLI) | payer OTHER ==
[2020-02-13 08:34] LABS: Basophils # (auto) 0.1 10 ^3/uL (0-0.2); Basophils % (auto) 0.8 % (0.0-2.0); Eosinophils # (auto) 0.1 10 ^3/uL (0-0.8); Eosinophils % (auto) 1.7 % (0.0-7.0); Hematocrit 44.5 % (41.0-53.0); Hemoglobin 15.4 g/dL (13.5-17.5); Lymphocytes # (auto) 1.7 10 ^3/uL (0.4-5.4); Lymphocytes % (auto) 23.8 % (10.0-50.0); Mean Corpuscular Hemoglobin 31.2 pg (28.0-32.0); Mean Corpuscular Hgb Conc. 34.7 g/dL (32.0-36.0); Mean Corpuscular Volume 89.9 fL (80.0-100.0); Monocytes # (auto) 0.7 10 ^3/uL (0-1.3); Monocytes % (auto) 9.1 % (0.0-12.0); Neutrophils # (auto) 4.7 10 ^3/uL (1.6-8.6); Neutrophils % (auto) 64.6 % (37.0-80.0); Nucleated Red Blood Cells % 0.1 %; Platelet Count (auto) 114 10^3/uL (140-450); Red Blood Cells 4.95 10^6/uL (4.5-5.90); Red Cell Distribution Width 14.7 % (11.8-14.3); White Blood Cell 7.3 10^3/uL (4.4-10.8)
[2020-02-13 08:51] LABS: Albumin 4.3 g/dL (3.4-5.0); Calcium 9.4 mg/dL (8.5-10.1); Potassium 4.2 mmol/L (3.5-5.1)
[2020-02-13 08:54] LABS: BUN/Creatinine Ratio 16.5; Bilirubin, Total 0.8 mg/dL (0.2-1.0); Total Protein 7.4 g/dL (6.4-8.2)
== END | disposition home or self-care (01) ==
LOC: LAB 08:16
PROVIDERS: ATTEND Internal Medicine
DX: C83.00 Small cell B-cell lymphoma, unspecified site (principal); C85.90 Non-Hodgkin lymphoma, unspecified, unspecified site
CPT/HCPCS: 36415; 80053; 83615; 85025

== ENCOUNTER → 2020-03-27 | Outpatient (CLI) | payer OTHER | END | disposition home or self-care (01) | LOC: CT 10:50 | PROVIDERS: ATTEND Urology | DX: N20.1 Calculus of ureter (principal); I25.10 Atherosclerotic heart disease of native coronary artery without angina pectoris; K44.9 Diaphragmatic hernia without obstruction or gangrene; K57.30 Diverticulosis of large intestine without perforation or abscess without bleeding; I71.4 Abdominal aortic aneurysm, without rupture; I70.0 Atherosclerosis of aorta; N28.1 Cyst of kidney, acquired; R16.1 Splenomegaly, not elsewhere classified; M41.85 Other forms of scoliosis, thoracolumbar region; M47.9 Spondylosis, unspecified; K65.8 Other peritonitis; N32.81 Overactive bladder; R39.9 Unspecified symptoms and signs involving the genitourinary system; Z95.2 Presence of prosthetic heart valve | CPT/HCPCS: 74176 ==

== ENCOUNTER → 2020-04-17 | Outpatient (CLI) | payer OTHER ==
[2020-04-17 10:00] LABS: Basophils # (auto) 0.1 10 ^3/uL (0-0.2); Basophils % (auto) 2.3 % (0.0-2.0); Eosinophils # (auto) 0.1 10 ^3/uL (0-0.8); Eosinophils % (auto) 3.6 % (0.0-7.0); Hematocrit 42.7 % (41.0-53.0); Hemoglobin 15.3 g/dL (13.5-17.5); Lymphocytes # (auto) 1.4 10 ^3/uL (0.4-5.4); Lymphocytes % (auto) 42.5 % (10.0-50.0); Mean Corpuscular Hemoglobin 32.2 pg (28.0-32.0); Mean Corpuscular Volume 89.6 fL (80.0-100.0); Monocytes # (auto) 0.4 10 ^3/uL (0-1.3); Neutrophils # (auto) 1.3 10 ^3/uL (1.6-8.6); Neutrophils % (auto) 39.6 % (37.0-80.0); Nucleated Red Blood Cells % 0.6 %; Platelet Count (auto) 110 10^3/uL (140-450); Red Blood Cells 4.76 10^6/uL (4.5-5.90); Red Cell Distribution Width 14.2 % (11.8-14.3); White Blood Cell 3.3 10^3/uL (4.4-10.8)
[2020-04-17 10:19] LABS: Albumin 4.3 g/dL (3.4-5.0); Calcium 9.4 mg/dL (8.5-10.1); Potassium 4.1 mmol/L (3.5-5.1)
[2020-04-17 10:35] LABS: Total Protein 7.5 g/dL (6.4-8.2)
[2020-04-17 10:37] LABS: BUN/Creatinine Ratio 17.4
== END | disposition home or self-care (01) ==
LOC: LAB 09:27
PROVIDERS: ATTEND Internal Medicine
DX: C83.00 Small cell B-cell lymphoma, unspecified site (principal); C85.90 Non-Hodgkin lymphoma, unspecified, unspecified site
CPT/HCPCS: 36415; 80053; 83615; 85025

== ENCOUNTER 2020-05-03 15:34 | Inpatient (IN) | payer OTHER ==
[~2020-05-03] VITALS: Ht 175.3 cm; Wt 99.8 kg
[2020-05-03 16:41] LABS: Hematocrit 37.1 % (41.0-53.0); Hemoglobin 13.1 g/dL (13.5-17.5); Mean Corpuscular Hemoglobin 31.8 pg (28.0-32.0); Mean Corpuscular Hgb Conc. 35.3 g/dL (32.0-36.0); Platelet Count (auto) 88 10^3/uL (140-450); Red Blood Cells 4.12 10^6/uL (4.5-5.90); Red Cell Distribution Width 13.3 % (11.8-14.3); White Blood Cell 3.4 10^3/uL (4.4-10.8)
[2020-05-03 16:53] LABS: Basophils % (manual) 0 (0.0-2.0); Blast Cells 0; Eosinophils % (manual) 0 (0-7); Promyelocytes % 0; Reactive Lymphocytes 0
[2020-05-03 17:00] LABS: INR 3.92 (0.9-1.15); Partial Thromboplastin Time 48.2 sec (23.0-31.2)
[2020-05-03] MEDS ORDERED: SODIUM CHLORIDE 0.9% 1,000 ML IV ONE ×2 (17:00→22:00)
[2020-05-03] MEDS ORDERED: TAMSULOSIN HYDROCHLORIDE 0.4 MG CAP PO ONE (17:00)
[2020-05-03] MEDS ORDERED: cefTRIAXone 1GM/50ML D5W 50 ML IV ONE ×2 (17:00→17:23)
[2020-05-03 17:06] LABS: Albumin 3.6 g/dL (3.4-5.0); Anion Gap 3 (5-15); Blood Alcohol < 3.0 mg/dL (0-5); Blood Urea Nitrogen 19 mg/dL (7-18); Calcium 8.4 mg/dL (8.5-10.1); Carbon Dioxide 28 mmol/L (21-32); Chloride 106 mmol/L (98-107); Glucose 114 mg/dL (74-106); Magnesium 2.3 mg/dL (1.6-2.6); Potassium 4.4 mmol/L (3.5-5.1); Sodium 137 mmol/L (136-145)
[2020-05-03 17:13] LABS: Alanine Aminotransferase 19 U/L (16-61); Alkaline Phosphatase 62 U/L (45-117); Aspartate Aminotransferase 24 U/L (15-37); BUN/Creatinine Ratio 17.6; GFR African American 85 mL/min; GFR Non-African American 70 mL/min; Total Protein 6.9 g/dL (6.4-8.2)
[2020-05-03 18:14] LABS: Band Neutrophils % (manual) 5; Lymphocytes % (manual) 21 (10.0-50.0); Metamyelocytes % 2; Monocytes % (manual) 25 (0-12); Myelocytes % 1
[2020-05-03 18:59] LABS: Amphetamine Screen, Urine NEGATIVE (NEGATIVE); Barbiturate Scree,Urine NEGATIVE (NEGATIVE); Benzodiazephine Screen, Urine NEGATIVE (NEGATIVE); Cannabinoid Screen, Urine NEGATIVE (NEGATIVE); Cocaine Screen, Urine NEGATIVE (NEGATIVE); Opiate Scree,Urine POSITIVE (NEGATIVE); Phencyclidine Screen, Urine NEGATIVE (NEGATIVE)
[2020-05-03 19:44] LABS: Urine Bacteria FEW /hpf (None Seen); Urine Blood 2+ /uL (Negative); Urine Mucus FEW (None Seen); Urine Specific Gravity 1.024 (1.001-1.035); Urine WBC 224 /hpf (0 - 3)
[2020-05-03] MEDS ORDERED: ACETAMINOPHEN 325 MG TAB PO ONE (20:15)
[2020-05-03] MEDS ORDERED: ACETAMINOPHEN 325 MG TAB PO PRN (21:00)
[2020-05-03] MEDS ORDERED: DOCUSATE SOD 100 MG CAP PO PRN (21:00)
[2020-05-03] MEDS ORDERED: NITROGLYCERIN 0.4 MG SL TAB SL PRN (21:00)
[2020-05-03] MEDS: D5W/SOD CHLO 0.9% 1,000 ML IV SCH (21:00)
[2020-05-03] MEDS ORDERED: MORPHINE SULF INJ 2 MG/ML SYRINGE 1ML IV PRN (21:00)
[2020-05-03] MEDS ORDERED: HYDROcodone-ACET 5/325MG TAB PO PRN (21:00)
[2020-05-03] MEDS: FAMOTIDINE 20 MG TAB PO SCH (21:55)
[2020-05-03] MEDS: ASCORBIC ACID 500 MG TAB PO SCH (22:00)
[2020-05-03] MEDS ORDERED: MANNITOL FTV 25% 12.5 GM/50 ML 50 ML IV ONE (22:00)
[2020-05-04] MEDS: ONDANSETRON HCL 4 MG/2 ML VIAL IV PRN ×4 (04:13→18:42)
[2020-05-04] MEDS: MORPHINE SULFATE 4 MG/ML SYR/VIAL IV PRN ×3 (05:22→13:47)
[2020-05-04 06:09] LABS: Hematocrit 34.7 % (41.0-53.0); Hemoglobin 12.5 g/dL (13.5-17.5); Mean Corpuscular Hemoglobin 32.2 pg (28.0-32.0); Mean Corpuscular Volume 89.3 fL (80.0-100.0); Platelet Count (auto) 78 10^3/uL (140-450); Red Blood Cells 3.89 10^6/uL (4.5-5.90); Red Cell Distribution Width 13.6 % (11.8-14.3); White Blood Cell 3.5 10^3/uL (4.4-10.8)
[2020-05-04 06:20] LABS: Basophils % (manual) 0 (0.0-2.0); Blast Cells 0; Eosinophils % (manual) 0 (0-7); Myelocytes % 0; Promyelocytes % 0; Reactive Lymphocytes 0
[2020-05-04 06:28] LABS: Potassium 3.6 mmol/L (3.5-5.1)
[2020-05-04 06:35] LABS: Albumin 3.2 g/dL (3.4-5.0); Bilirubin, Total 0.8 mg/dL (0.2-1.0); Calcium 8.1 mg/dL (8.5-10.1); Total Protein 6.4 g/dL (6.4-8.2)
[2020-05-04 07:56] LABS: Band Neutrophils % (manual) 5; Lymphocytes % (manual) 20 (10.0-50.0); Metamyelocytes % 1; Monocytes % (manual) 20 (0-12)
[2020-05-04] MEDS ORDERED: GABA-339 PO (08:57)
[2020-05-04] MEDS ORDERED: cefTRIAXone 1GM/50ML D5W 50 ML IV SCH (09:00)
[2020-05-04] MEDS: FAMOTIDINE 20 MG TAB PO SCH ×2 (09:33→22:32)
[2020-05-04] MEDS: ASCORBIC ACID 500 MG TAB PO SCH ×2 (09:33→22:32)
[2020-05-04] MEDS: D5W/SOD CHLO 0.9% 1,000 ML IV SCH ×2 (09:33→23:40)
[2020-05-04] MEDS ORDERED: MULTIPLE VITAMIN TAB PO SCH (10:00)
[2020-05-04] MEDS ORDERED: ZINC SULFATE 220mg CAP or TAB PO SCH (10:00)
[2020-05-04] MEDS ORDERED: LOVA40TA72 PO (11:24)
[2020-05-04] MEDS ORDERED: LISI-648 PO (11:24)
[2020-05-04] MEDS ORDERED: METO25TA93 PO (11:24)
[2020-05-04] MEDS ORDERED: HYDROmorphone HCL 2 MG/ML VL IV PRN (15:00)
[2020-05-04] MEDS ORDERED: TAMSULOSIN HYDROCHLORIDE 0.4 MG CAP PO SCH (18:00)
[2020-05-04] MEDS ORDERED: GABAPENTIN 300 MG CAP PO SCH (22:00)
[2020-05-05 02:30] VITALS: BP 133/70
[2020-05-05] MEDS ORDERED: LISINOPRIL 10 MG TAB PO SCH (10:00)
[2020-05-05] MEDS ORDERED: METOPROLOL SUCCINATE XL 50 MG TAB PO SCH (10:00)
== END 2020-05-05 05:45 | disposition left against medical advice (07) | DRG 91 ==
LOC: EDUNIT# 15:34 → ER 15:34 → EDBD 15:34 → TELE 21:04
PROVIDERS: ADMIT Nurse Practitioner Family; ATTEND Internal Medicine
DX: G92 Toxic encephalopathy (principal); N17.0 Acute kidney failure with tubular necrosis; J96.91 Respiratory failure, unspecified with hypoxia; N20.2 Calculus of kidney with calculus of ureter; N13.6 Pyonephrosis; R30.0 Dysuria; R31.9 Hematuria, unspecified; T45.515A Adverse effect of anticoagulants, initial encounter; N18.9 Chronic kidney disease, unspecified; D63.1 Anemia in chronic kidney disease; I12.9 Hypertensive chronic kidney disease with stage 1 through stage 4 chronic kidney disease, or unspecified chronic kidney disease; N40.1 Benign prostatic hyperplasia with lower urinary tract symptoms; R33.8 Other retention of urine; Z20.822 Contact with and (suspected) exposure to COVID-19; Z53.29 Procedure and treatment not carried out because of patient's decision for other reasons; E78.5 Hyperlipidemia, unspecified; I25.10 Atherosclerotic heart disease of native coronary artery without angina pectoris; Z79.02 Long term (current) use of antithrombotics/antiplatelets; Z79.899 Other long term (current) drug therapy; Z80.9 Family history of malignant neoplasm, unspecified; Z82.49 Family history of ischemic heart disease and other diseases of the circulatory system; Z83.3 Family history of diabetes mellitus; Z95.5 Presence of coronary angioplasty implant and graft
CPT/HCPCS: 36415; 70450; 71045; 74176; 80053; 80307; 80320; 81001; 82728; 83036; 83605; 83735; 84484; 85007; 85027; 85379; 85610; 85730; 87040; 87086; 87088; 87186; 87426; 93005; 96361; 96365; 96367; 99291; G0378; J0696; J2405

== ENCOUNTER → 2020-05-05 | Outpatient (CLI) | payer OTHER ==
[~2020-05-05] MED LIST changes: +CLOP75TA28 PO; -CLOP75TA41 PO; +CLOP75TA70 PO; +GABA-339 PO; -GABA300C10 PO; +LEVO-28 PO; +LISI-716 PO; +METO25TA93 PO; +TRAM-297 PO
[2020-05-05 09:12] LABS: Hemoglobin 12.9 g/dL (13.5-17.5); Mean Corpuscular Hemoglobin 31.8 pg (28.0-32.0); Mean Corpuscular Hgb Conc. 35.9 g/dL (32.0-36.0); Mean Corpuscular Volume 88.8 fL (80.0-100.0); Red Blood Cells 4.05 10^6/uL (4.5-5.90); Red Cell Distribution Width 13.6 % (11.8-14.3); White Blood Cell 3.1 10^3/uL (4.4-10.8)
[2020-05-05 09:16] LABS: Basophils % (manual) 0 (0.0-2.0); Blast Cells 0; Reactive Lymphocytes 0
[2020-05-05 09:34] LABS: Albumin 3.4 g/dL (3.4-5.0); Potassium 3.8 mmol/L (3.5-5.1)
[2020-05-05 09:40] LABS: BUN/Creatinine Ratio 14.8; Bilirubin, Total 0.7 mg/dL (0.2-1.0); Total Protein 7.1 g/dL (6.4-8.2)
[2020-05-05 13:05] LABS: Band Neutrophils % (manual) 18; Eosinophils % (manual) 1 (0-7); Lymphocytes % (manual) 24 (10.0-50.0); Metamyelocytes % 3; Monocytes % (manual) 7 (0-12); Myelocytes % 1; Promyelocytes % 1
== END | disposition home or self-care (01) ==
LOC: LAB 08:43
PROVIDERS: ATTEND Internal Medicine
DX: C85.90 Non-Hodgkin lymphoma, unspecified, unspecified site (principal); C83.00 Small cell B-cell lymphoma, unspecified site
CPT/HCPCS: 36415; 80053; 83615; 85007; 85027

== ENCOUNTER → 2020-05-06 | Outpatient (CLI) | payer OTHER ==
[~2020-05-06] MED LIST changes: -CLOP75TA28 PO; +CLOP75TA41 PO; -CLOP75TA70 PO; +GABA300C10 PO; -LEVO-28 PO; +LISI-648 PO; -LISI-716 PO; -TRAM-297 PO
== END | disposition home or self-care (01) ==
LOC: LAB 13:52
PROVIDERS: ATTEND Urology
DX: N39.0 Urinary tract infection, site not specified (principal)
CPT/HCPCS: 87086

== ENCOUNTER 2020-05-07 06:49 | Inpatient (IN) | payer OTHER ==
[~2020-05-07] VITALS: Ht 172.7 cm; Wt 101.0 kg
[~2020-05-07 06:49] MED LIST changes: -CLOP75TA41 PO; +CLOP75TA70 PO; -GABA300C10 PO
[2020-05-07] MEDS ORDERED: KETOROLAC TROMETH 30 MG/ML 1ML VIAL IV ONE (07:30)
[2020-05-07] MEDS ORDERED: SODIUM CHLORIDE 0.9% 500 ML IVB ONE (07:30)
[2020-05-07 08:34] LABS: Hematocrit 34.4 % (41.0-53.0); Hemoglobin 12.3 g/dL (13.5-17.5); Mean Corpuscular Hemoglobin 31.6 pg (28.0-32.0); Mean Corpuscular Hgb Conc. 35.8 g/dL (32.0-36.0); Mean Corpuscular Volume 88.4 fL (80.0-100.0); Platelet Count (auto) 133 10^3/uL (140-450); Red Blood Cells 3.89 10^6/uL (4.5-5.90); Red Cell Distribution Width 13.8 % (11.8-14.3)
[2020-05-07 08:40] LABS: Basophils % (manual) 0 (0.0-2.0); Blast Cells 0; Metamyelocytes % 0; Myelocytes % 0; Promyelocytes % 0; Reactive Lymphocytes 0
[2020-05-07 08:47] LABS: Albumin 3.5 g/dL (3.4-5.0); BUN/Creatinine Ratio 20.4; Calcium 8.6 mg/dL (8.5-10.1); Potassium 3.7 mmol/L (3.5-5.1)
[2020-05-07 08:49] LABS: Bilirubin, Total 0.6 mg/dL (0.2-1.0); Total Protein 6.6 g/dL (6.4-8.2)
[2020-05-07] MEDS ORDERED: MORPHINE SULF INJ 2 MG/ML SYRINGE 1ML IV PRN (09:45)
[2020-05-07] MEDS ORDERED: ONDANSETRON HCL 4 MG/2 ML VIAL IV PRN (09:45)
[2020-05-07] MEDS ORDERED: NITROGLYCERIN 0.4 MG SL TAB SL PRN (09:45)
[2020-05-07] MEDS ORDERED: ACETAMINOPHEN 500 MG TAB PO PRN (09:45)
[2020-05-07] MEDS: SODIUM CHLORIDE 0.9% 1,000 ML IV SCH ×2 (10:00→21:09)
[2020-05-07] MEDS: MEVACOR PO SCH (10:00)
[2020-05-07] MEDS: METOPROLOL SUCCINATE XL 50 MG TAB PO SCH (10:00)
[2020-05-07] MEDS ORDERED: METOPROLOL SUCCINATE XL 50 MG TAB PO ONE (10:15)
[2020-05-07 10:25] LABS: Band Neutrophils % (manual) 6; Eosinophils % (manual) 4 (0-7); Lymphocytes % (manual) 30 (10.0-50.0); Monocytes % (manual) 20 (0-12)
[2020-05-07] MEDS: ALLOPURINOL 300 MG TAB PO SCH (10:27)
[2020-05-07] MEDS: LISINOPRIL 10 MG TAB PO SCH (10:27)
[2020-05-07] MEDS: FAMOTIDINE 20 MG TAB PO SCH (10:27)
[2020-05-07] MEDS: DOCUSATE SOD 100 MG CAP PO SCH ×2 (10:27→23:01)
[2020-05-07] MEDS: HYDROcodone-ACET 5/325MG TAB PO PRN ×2 (11:26→19:20)
[2020-05-07 13:40] LABS: Urine Bacteria NONE SEEN /hpf (None Seen); Urine Blood TRACE /uL (Negative); Urine Mucus FEW (None Seen); Urine Specific Gravity 1.025 (1.001-1.035); Urine WBC 143 /hpf (0 - 3)
[2020-05-07] MEDS ORDERED: METOPROLOL TARTRATE 25 MG TAB ONE (14:16)
[2020-05-07] MEDS: MORPHINE SULF INJ 2 MG/ML SYRINGE 1ML IV PRN ×2 (14:19→20:32)
[2020-05-07] MEDS: GABAPENTIN 300 MG CAP PO SCH ×2 (14:21→23:01)
[2020-05-07] MEDS ORDERED: WARF4TAB33 PO (14:30)
[2020-05-07] MEDS: TAMSULOSIN HYDROCHLORIDE 0.4 MG CAP PO SCH (18:36)
[2020-05-07 22:00] VITALS: BP 139/79
[2020-05-07 22:37] VITALS: BP 139/79
[2020-05-08] MEDS: MORPHINE SULF INJ 2 MG/ML SYRINGE 1ML IV PRN ×2 (03:43→21:20)
[2020-05-08] MEDS: SODIUM CHLORIDE 0.9% 1,000 ML IV SCH ×3 (04:48→16:12)
[2020-05-08 05:00] VITALS: BP 119/60
[2020-05-08 06:36] LABS: Hematocrit 32.1 % (41.0-53.0); Hemoglobin 11.5 g/dL (13.5-17.5); Mean Corpuscular Hemoglobin 31.7 pg (28.0-32.0); Mean Corpuscular Hgb Conc. 35.9 g/dL (32.0-36.0); Mean Corpuscular Volume 88.3 fL (80.0-100.0); Platelet Count (auto) 133 10^3/uL (140-450); Red Blood Cells 3.63 10^6/uL (4.5-5.90); Red Cell Distribution Width 13.6 % (11.8-14.3); White Blood Cell 2.4 10^3/uL (4.4-10.8)
[2020-05-08] MEDS: GABAPENTIN 300 MG CAP PO SCH ×3 (06:43→21:18)
[2020-05-08 06:46] LABS: Calcium 8.3 mg/dL (8.5-10.1); Potassium 3.8 mmol/L (3.5-5.1)
[2020-05-08 06:51] LABS: Basophils % (manual) 0 (0.0-2.0); Blast Cells 0; Promyelocytes % 0; Reactive Lymphocytes 0
[2020-05-08 06:57] LABS: BUN/Creatinine Ratio 22.5
[2020-05-08 07:48] LABS: Band Neutrophils % (manual) 1; Eosinophils % (manual) 9 (0-7); Lymphocytes % (manual) 16 (10.0-50.0); Metamyelocytes % 1; Monocytes % (manual) 12 (0-12); Myelocytes % 1
[2020-05-08 08:00] VITALS: BP 136/68
[2020-05-08] MEDS: METOPROLOL SUCCINATE XL 50 MG TAB PO SCH (10:00)
[2020-05-08] MEDS: ALLOPURINOL 300 MG TAB PO SCH (10:00)
[2020-05-08] MEDS: FAMOTIDINE 20 MG TAB PO SCH (10:00)
[2020-05-08] MEDS: MEVACOR PO SCH (10:00)
[2020-05-08] MEDS ORDERED: cefTRIAXone 1GM/50ML D5W 50 ML IV ONE (10:00)
[2020-05-08] MEDS: DOCUSATE SOD 100 MG CAP PO SCH ×2 (10:00→21:19)
[2020-05-08 10:15] LABS: INR 1.21 (0.9-1.15); Partial Thromboplastin Time 29.8 sec (23.0-31.2)
[2020-05-08] MEDS: LISINOPRIL 10 MG TAB PO SCH (10:43)
[2020-05-08] MEDS ORDERED: CEFTRIAXONE SODIUM 2 GM in D5W 5% 50 ML IV ONE (10:45)
[2020-05-08] MEDS ORDERED: ceFAZolin 1GM/50ML 50 ML IV ONE (12:20)
[2020-05-08] MEDS ORDERED: IOHEXOL 300 MG/ML 100ML BOTTLE IJ ONE (12:22)
[2020-05-08] MEDS ORDERED: PROPOFOL 10 MG/ML 20 ML IV ONE (12:39)
[2020-05-08] MEDS ORDERED: MIDAZOLAM HCL 1MG/1ML-2 ML VIAL ONE (12:39)
[2020-05-08] MEDS ORDERED: LIDOCAINE 2% (LOCAL ANESTH.) PF 5ml SDV ONE (12:39)
[2020-05-08] MEDS ORDERED: GLYCOPYRROLATE 0.2 MG/ML 1ML VIAL ONE (12:39)
[2020-05-08] MEDS ORDERED: fentaNYL CITRATE 100 MCG/2 ML VL ONE (12:39)
[2020-05-08] MEDS ORDERED: ONDANSETRON HCL 4 MG/2 ML VIAL ONE (12:39)
[2020-05-08] MEDS ORDERED: ONDANSETRON HCL 4 MG/2 ML VIAL IV PRN (14:30)
[2020-05-08] MEDS ORDERED: HYDROmorphone HCL 2 MG/ML VL IV PRN (14:30)
[2020-05-08 15:51] VITALS: BP 111/60
[2020-05-08] MEDS: HYDROcodone-ACET 5/325MG TAB PO PRN (16:00)
[2020-05-08] MEDS: TAMSULOSIN HYDROCHLORIDE 0.4 MG CAP PO SCH (18:57)
[2020-05-08 22:00] VITALS: BP 142/76
[2020-05-08] MEDS ORDERED: PRAVASTATIN SODIUM 20 MG TAB PO SCH (22:00)
[2020-05-09] MEDS: SODIUM CHLORIDE 0.9% 1,000 ML IV SCH ×2 (01:45→09:44)
[2020-05-09 05:00] VITALS: BP 125/64
[2020-05-09] MEDS: GABAPENTIN 300 MG CAP PO SCH ×2 (05:14→15:21)
[2020-05-09 06:40] LABS: BUN/Creatinine Ratio 16.9; Calcium 8.7 mg/dL (8.5-10.1); Potassium 3.7 mmol/L (3.5-5.1)
[2020-05-09 07:10] LABS: Hematocrit 35.4 % (41.0-53.0); Hemoglobin 12.6 g/dL (13.5-17.5); Mean Corpuscular Hemoglobin 31.4 pg (28.0-32.0); Mean Corpuscular Hgb Conc. 35.7 g/dL (32.0-36.0); Mean Corpuscular Volume 88.1 fL (80.0-100.0); Platelet Count (auto) 150 10^3/uL (140-450); Red Blood Cells 4.02 10^6/uL (4.5-5.90); Red Cell Distribution Width 13.4 % (11.8-14.3); White Blood Cell 3.5 10^3/uL (4.4-10.8)
[2020-05-09 07:16] LABS: Band Neutrophils % (manual) 0; Basophils % (manual) 0 (0.0-2.0); Blast Cells 0; Metamyelocytes % 0; Myelocytes % 0; Promyelocytes % 0; Reactive Lymphocytes 0
[2020-05-09 08:00] VITALS: BP 128/61
[2020-05-09 08:35] LABS: Eosinophils % (manual) 1 (0-7); Lymphocytes % (manual) 18 (10.0-50.0); Monocytes % (manual) 17 (0-12)
[2020-05-09] MEDS: FAMOTIDINE 20 MG TAB PO SCH (09:44)
[2020-05-09] MEDS: DOCUSATE SOD 100 MG CAP PO SCH (09:44)
[2020-05-09] MEDS: ALLOPURINOL 300 MG TAB PO SCH (09:45)
[2020-05-09] MEDS: METOPROLOL SUCCINATE XL 50 MG TAB PO SCH (09:45)
[2020-05-09] MEDS: LISINOPRIL 10 MG TAB PO SCH (09:45)
[2020-05-09 14:42] VITALS: BP 128/61
[2020-05-09 16:00] VITALS: BP 139/76
== END 2020-05-09 16:22 | disposition home or self-care (01) | DRG 660 ==
LOC: ER 06:49 → TELE 06:50 → TELE-CENTR 21:10
PROVIDERS: ADMIT Nurse Practitioner Acute Care; ATTEND Internal Medicine
PROC: 0T768DZ Dilation of Right Ureter with Intraluminal Device, Via Natural or Artificial Opening Endoscopic (ICD-10-PCS; 2020-05-08)
PROC: 0TF6XZZ Fragmentation in Right Ureter, External Approach (ICD-10-PCS; 2020-05-08)
PROC: 0T9B70Z Drainage of Bladder with Drainage Device, Via Natural or Artificial Opening (ICD-10-PCS; principal; 2020-05-08 12:50)
DX: N20.2 Calculus of kidney with calculus of ureter (principal); N13.8 Other obstructive and reflux uropathy; J98.11 Atelectasis; Z20.822 Contact with and (suspected) exposure to COVID-19; I25.10 Atherosclerotic heart disease of native coronary artery without angina pectoris; N13.9 Obstructive and reflux uropathy, unspecified; E66.9 Obesity, unspecified; I10 Essential (primary) hypertension; D72.819 Decreased white blood cell count, unspecified; E78.5 Hyperlipidemia, unspecified; I35.0 Nonrheumatic aortic (valve) stenosis; K40.20 Bilateral inguinal hernia, without obstruction or gangrene, not specified as recurrent; K44.9 Diaphragmatic hernia without obstruction or gangrene; K57.30 Diverticulosis of large intestine without perforation or abscess without bleeding; Z79.01 Long term (current) use of anticoagulants; Z79.02 Long term (current) use of antithrombotics/antiplatelets; Z79.899 Other long term (current) drug therapy; Z80.3 Family history of malignant neoplasm of breast; Z82.49 Family history of ischemic heart disease and other diseases of the circulatory system; Z83.3 Family history of diabetes mellitus; Z87.442 Personal history of urinary calculi; Z95.2 Presence of prosthetic heart valve; Z95.5 Presence of coronary angioplasty implant and graft; Z68.33 Body mass index [BMI] 33.0-33.9, adult
CPT/HCPCS: 36415; 71045; 74176; 80048; 80053; 81001; 85007; 85027; 85610; 85730; 87081; 87086; 87426; G0378; J0690; J0696; J1885; J2001; J2250; J2405; J2704; J7060

== ENCOUNTER 2020-05-15 07:55 | Inpatient (IN) | payer OTHER ==
[~2020-05-15] VITALS: Ht 172.7 cm; Wt 95.4 kg
[~2020-05-15 07:55] MED LIST changes: -ALL300T PO; -CLOP75TA70 PO
[2020-05-15] MEDS ORDERED: ONDANSETRON HCL 4 MG/2 ML VIAL IV ONE (08:15)
[2020-05-15] MEDS ORDERED: MORPHINE SULF INJ 2 MG/ML SYRINGE 1ML IV ONE (08:15)
[2020-05-15 08:52] LABS: Hematocrit 37.9 % (41.0-53.0); Hemoglobin 13.5 g/dL (13.5-17.5); Mean Corpuscular Hemoglobin 31.9 pg (28.0-32.0); Mean Corpuscular Hgb Conc. 35.6 g/dL (32.0-36.0); Mean Corpuscular Volume 89.7 fL (80.0-100.0); Platelet Count (auto) 155 10^3/uL (140-450); Red Blood Cells 4.23 10^6/uL (4.5-5.90); Red Cell Distribution Width 14.2 % (11.8-14.3); White Blood Cell 4.6 10^3/uL (4.4-10.8)
[2020-05-15 09:07] LABS: Albumin 3.7 g/dL (3.4-5.0); BUN/Creatinine Ratio 17.2; Calcium 8.9 mg/dL (8.5-10.1); Potassium 3.7 mmol/L (3.5-5.1)
[2020-05-15 09:08] LABS: Basophils % (manual) 0 (0.0-2.0); Blast Cells 0; Metamyelocytes % 0; Myelocytes % 0; Promyelocytes % 0; Reactive Lymphocytes 0
[2020-05-15 09:13] LABS: Bilirubin, Total 0.7 mg/dL (0.2-1.0); Total Protein 6.5 g/dL (6.4-8.2)
[2020-05-15 09:22] LABS: INR 2.28 (0.9-1.15); Partial Thromboplastin Time 27.6 sec (23.0-31.2)
[2020-05-15 09:47] LABS: Band Neutrophils % (manual) 2; Eosinophils % (manual) 3 (0-7); Lymphocytes % (manual) 24 (10.0-50.0); Monocytes % (manual) 9 (0-12)
[2020-05-15] MEDS ORDERED: MORPHINE SULF INJ 2 MG/ML SYRINGE 1ML IV PRN ×2 (10:30→11:00)
[2020-05-15] MEDS ORDERED: NITROGLYCERIN 0.4 MG SL TAB SL PRN (10:30)
[2020-05-15 10:35] LABS: Urine Bacteria NONE SEEN /hpf (None Seen); Urine Blood 3+ /uL (Negative); Urine Mucus FEW (None Seen); Urine Specific Gravity 1.019 (1.001-1.035); Urine WBC 10 /hpf (0 - 3)
[2020-05-15] MEDS ORDERED: traMADol HCL 50 MG TAB PO PRN (11:00)
[2020-05-15] MEDS ORDERED: TEMAZEPAM 15 MG CAP PO PRN (11:00)
[2020-05-15] MEDS ORDERED: LACTULOSE 20Gm/30ML SOLN PO PRN (11:00)
[2020-05-15] MEDS ORDERED: ONDANSETRON HCL 4 MG/2 ML VIAL IV PRN (11:00)
[2020-05-15] MEDS ORDERED: DEXTROSE (50%) 50ML SYRG IV PRN (11:00)
[2020-05-15 12:01] LABS: INR 2.49 (0.9-1.15); Partial Thromboplastin Time 32.8 sec (23.0-31.2)
[2020-05-15 12:13] LABS: CRP High Sensitivity 0.31 mg/dL (< 0.3)
[2020-05-15] MEDS: ACCU-CHEK COMFORT CURVE STRIP VI SCH ×3 (12:32→21:51)
[2020-05-15] MEDS: GABAPENTIN 300 MG CAP PO SCH ×3 (14:06→22:00)
[2020-05-15] MEDS ORDERED: cefTRIAXone 1GM/50ML D5W 50 ML IV ONE (15:30)
[2020-05-15] MEDS ORDERED: WARFARIN SODIUM 2 MG TAB PO SCH (18:00)
[2020-05-15 20:24] VITALS: BP 101/64
[2020-05-15 20:35] VITALS: BP 101/64
[2020-05-15 21:00] VITALS: BP 104/61
[2020-05-16] MEDS: ACCU-CHEK COMFORT CURVE STRIP VI SCH (05:55)
[2020-05-16] MEDS: GABAPENTIN 300 MG CAP PO SCH ×2 (05:55→17:21)
[2020-05-16 06:16] LABS: INR 2.57 (0.9-1.15); Partial Thromboplastin Time 35.4 sec (23.0-31.2)
[2020-05-16 06:24] LABS: Cholesterol 110 mg/dL (< 200); HDL Cholesterol 26 mg/dL (40-59); LDL Cholesterol 67 mg/dL (< 100); Triglycerides 125 mg/dL (< 150)
[2020-05-16 08:00] VITALS: BP 109/71
[2020-05-16] MEDS: ASPirin 81 mg TAB PO SCH (09:39)
[2020-05-16] MEDS: cefTRIAXone 1GM/50ML D5W 50 ML IV SCH (09:39)
[2020-05-16] MEDS: NITROGLYCERIN 0.2MG/HR TOPICAL PATCH TD SCH (09:43)
[2020-05-16] MEDS ORDERED: MEVACOR PO SCH (10:00)
[2020-05-16] MEDS: METOPROLOL SUCCINATE XL 50 MG TAB PO SCH (10:00)
[2020-05-16] MEDS ORDERED: LEVO-28 PO (11:44)
[2020-05-16] MEDS ORDERED: TRAM-297 PO (11:46)
[2020-05-16 16:00] VITALS: BP 142/68
[2020-05-16 20:12] VITALS: BP_SYST 130
[2020-05-16] MEDS: PRAVASTATIN SODIUM 20 MG TAB PO SCH (22:00)
[2020-05-17 01:21] VITALS: BP 130/79
[2020-05-17] MEDS: GABAPENTIN 300 MG CAP PO SCH ×3 (06:00→22:10)
[2020-05-17 06:39] LABS: INR 1.97 (0.9-1.15); Potassium 3.8 mmol/L (3.5-5.1)
[2020-05-17 07:19] LABS: Albumin 3.8 g/dL (3.4-5.0); BUN/Creatinine Ratio 16.5; Bilirubin, Total 0.9 mg/dL (0.2-1.0); Total Protein 6.9 g/dL (6.4-8.2)
[2020-05-17 07:38] LABS: Basophils # (auto) 0.1 10 ^3/uL (0-0.2); Basophils % (auto) 2.5 % (0.0-2.0); Eosinophils # (auto) 0.1 10 ^3/uL (0-0.8); Eosinophils % (auto) 2.8 % (0.0-7.0); Hematocrit 40.4 % (41.0-53.0); Hemoglobin 13.9 g/dL (13.5-17.5); Lymphocytes # (auto) 1.1 10 ^3/uL (0.4-5.4); Lymphocytes % (auto) 26.6 % (10.0-50.0); Mean Corpuscular Hgb Conc. 34.5 g/dL (32.0-36.0); Mean Corpuscular Volume 89.8 fL (80.0-100.0); Monocytes # (auto) 0.5 10 ^3/uL (0-1.3); Neutrophils # (auto) 2.3 10 ^3/uL (1.6-8.6); Neutrophils % (auto) 56.1 % (37.0-80.0); Nucleated Red Blood Cells % 0.4 %; Platelet Count (auto) 161 10^3/uL (140-450); Red Cell Distribution Width 14.1 % (11.8-14.3); White Blood Cell 4.2 10^3/uL (4.4-10.8)
[2020-05-17 08:00] VITALS: BP 107/71
[2020-05-17] MEDS: METOPROLOL SUCCINATE XL 50 MG TAB PO SCH (08:51)
[2020-05-17] MEDS: ASPirin 81 mg TAB PO SCH (08:51)
[2020-05-17] MEDS: NITROGLYCERIN 0.2MG/HR TOPICAL PATCH TD SCH (08:52)
[2020-05-17] MEDS: cefTRIAXone 1GM/50ML D5W 50 ML IV SCH (08:53)
[2020-05-17] MEDS ORDERED: WARFARIN SODIUM 2 MG TAB PO ONE (17:00)
[2020-05-17 17:29] VITALS: BP 113/72
[2020-05-17 22:00] VITALS: BP 115/69
[2020-05-17] MEDS: PRAVASTATIN SODIUM 20 MG TAB PO SCH (22:10)
[2020-05-18 05:00] VITALS: BP 106/70
[2020-05-18] MEDS: GABAPENTIN 300 MG CAP PO SCH ×3 (06:13→22:00)
[2020-05-18 06:43] LABS: Basophils # (auto) 0.1 10 ^3/uL (0-0.2); Basophils % (auto) 2.7 % (0.0-2.0); Eosinophils # (auto) 0.1 10 ^3/uL (0-0.8); Eosinophils % (auto) 2.7 % (0.0-7.0); Hematocrit 39.5 % (41.0-53.0); Hemoglobin 14.1 g/dL (13.5-17.5); Lymphocytes % (auto) 24.5 % (10.0-50.0); Mean Corpuscular Hemoglobin 31.3 pg (28.0-32.0); Mean Corpuscular Hgb Conc. 35.7 g/dL (32.0-36.0); Mean Corpuscular Volume 87.9 fL (80.0-100.0); Monocytes # (auto) 0.6 10 ^3/uL (0-1.3); Monocytes % (auto) 14.4 % (0.0-12.0); Neutrophils # (auto) 2.2 10 ^3/uL (1.6-8.6); Neutrophils % (auto) 55.7 % (37.0-80.0); Nucleated Red Blood Cells % 0.4 %; Platelet Count (auto) 156 10^3/uL (140-450); Potassium 4.2 mmol/L (3.5-5.1); Red Blood Cells 4.49 10^6/uL (4.5-5.90); Red Cell Distribution Width 13.8 % (11.8-14.3); White Blood Cell 3.9 10^3/uL (4.4-10.8)
[2020-05-18 06:53] LABS: INR 1.94 (0.9-1.15); Partial Thromboplastin Time 33.9 sec (23.0-31.2)
[2020-05-18 06:54] LABS: BUN/Creatinine Ratio 19.8; Calcium 9.2 mg/dL (8.5-10.1)
[2020-05-18 08:00] VITALS: BP_SYST 107; BP_DIAS 58; BP_DIAS 71
[2020-05-18] MEDS: cefTRIAXone 1GM/50ML D5W 50 ML IV SCH (09:39)
[2020-05-18] MEDS: ASPirin 81 mg TAB PO SCH (09:40)
[2020-05-18] MEDS: METOPROLOL SUCCINATE XL 50 MG TAB PO SCH (09:40)
[2020-05-18] MEDS: NITROGLYCERIN 0.2MG/HR TOPICAL PATCH TD SCH (09:41)
[2020-05-18 16:00] VITALS: BP 111/66
[2020-05-18] MEDS ORDERED: WARFARIN SODIUM 5 MG TAB PO ONE (17:00)
[2020-05-18 22:00] VITALS: BP 129/80
[2020-05-18] MEDS: PRAVASTATIN SODIUM 20 MG TAB PO SCH (22:00)
[2020-05-18] MEDS: ACETAMINOPHEN 500 MG TAB PO PRN (22:54)
[2020-05-19 05:00] VITALS: BP 124/58
[2020-05-19 06:55] LABS: INR 1.84 (0.9-1.15)
[2020-05-19 06:58] LABS: Basophils # (auto) 0.1 10 ^3/uL (0-0.2); Basophils % (auto) 2.3 % (0.0-2.0); Eosinophils # (auto) 0.1 10 ^3/uL (0-0.8); Eosinophils % (auto) 2.8 % (0.0-7.0); Hematocrit 40.2 % (41.0-53.0); Lymphocytes # (auto) 0.9 10 ^3/uL (0.4-5.4); Lymphocytes % (auto) 21.4 % (10.0-50.0); Mean Corpuscular Hemoglobin 31.2 pg (28.0-32.0); Mean Corpuscular Hgb Conc. 34.9 g/dL (32.0-36.0); Mean Corpuscular Volume 89.5 fL (80.0-100.0); Monocytes # (auto) 0.7 10 ^3/uL (0-1.3); Monocytes % (auto) 16.2 % (0.0-12.0); Neutrophils # (auto) 2.4 10 ^3/uL (1.6-8.6); Neutrophils % (auto) 57.3 % (37.0-80.0); Nucleated Red Blood Cells % 0.1 %; Platelet Count (auto) 152 10^3/uL (140-450); Red Cell Distribution Width 14.1 % (11.8-14.3); White Blood Cell 4.2 10^3/uL (4.4-10.8)
[2020-05-19 07:07] LABS: Potassium 4.1 mmol/L (3.5-5.1)
[2020-05-19 07:19] LABS: BUN/Creatinine Ratio 20.2; Calcium 9.1 mg/dL (8.5-10.1)
[2020-05-19 08:00] VITALS: BP 105/71
[2020-05-19] MEDS ORDERED: ADENOSINE 80 MG in GIVE UN-DILUTED 0 ML IV STA (08:15)
[2020-05-19] MEDS: cefTRIAXone 1GM/50ML D5W 50 ML IV SCH (09:00)
[2020-05-19 09:16] VITALS: BP 117/74
[2020-05-19] MEDS: ASPirin 81 mg TAB PO SCH (10:00)
[2020-05-19] MEDS: NITROGLYCERIN 0.2MG/HR TOPICAL PATCH TD SCH (10:00)
[2020-05-19] MEDS: METOPROLOL SUCCINATE XL 50 MG TAB PO SCH (10:00)
[2020-05-19] MEDS: GABAPENTIN 300 MG CAP PO SCH ×2 (14:00→22:00)
[2020-05-19 16:00] VITALS: BP 101/54
[2020-05-19] MEDS ORDERED: WARFARIN SODIUM 2.5 MG TAB PO ONE (17:00)
[2020-05-19] MEDS: ACETAMINOPHEN 500 MG TAB PO PRN (18:49)
[2020-05-19 22:00] VITALS: BP 105/64
[2020-05-19] MEDS: PRAVASTATIN SODIUM 20 MG TAB PO SCH (22:00)
[2020-05-20 05:00] VITALS: BP 100/61
[2020-05-20] MEDS: GABAPENTIN 300 MG CAP PO SCH ×2 (05:35→16:18)
[2020-05-20 05:46] LABS: Basophils # (auto) 0.1 10 ^3/uL (0-0.2); Basophils % (auto) 2.5 % (0.0-2.0); Eosinophils # (auto) 0.1 10 ^3/uL (0-0.8); Eosinophils % (auto) 2.8 % (0.0-7.0); Hematocrit 40.1 % (41.0-53.0); Hemoglobin 14.1 g/dL (13.5-17.5); Lymphocytes # (auto) 1.1 10 ^3/uL (0.4-5.4); Lymphocytes % (auto) 25.9 % (10.0-50.0); Mean Corpuscular Hemoglobin 31.3 pg (28.0-32.0); Mean Corpuscular Hgb Conc. 35.3 g/dL (32.0-36.0); Mean Corpuscular Volume 88.6 fL (80.0-100.0); Monocytes # (auto) 0.6 10 ^3/uL (0-1.3); Monocytes % (auto) 14.7 % (0.0-12.0); Neutrophils # (auto) 2.3 10 ^3/uL (1.6-8.6); Neutrophils % (auto) 54.1 % (37.0-80.0); Nucleated Red Blood Cells % 0.4 %; Platelet Count (auto) 143 10^3/uL (140-450); Red Blood Cells 4.52 10^6/uL (4.5-5.90); White Blood Cell 4.2 10^3/uL (4.4-10.8)
[2020-05-20 06:03] LABS: INR 2.28 (0.9-1.15)
[2020-05-20 06:06] LABS: BUN/Creatinine Ratio 17.6; Calcium 9.4 mg/dL (8.5-10.1); Potassium 4.1 mmol/L (3.5-5.1)
[2020-05-20 08:30] VITALS: BP 120/79
[2020-05-20] MEDS: NITROGLYCERIN 0.2MG/HR TOPICAL PATCH TD SCH (10:00)
[2020-05-20] MEDS: cefTRIAXone 1GM/50ML D5W 50 ML IV SCH (10:23)
[2020-05-20] MEDS: ASPirin 81 mg TAB PO SCH (10:23)
[2020-05-20] MEDS: METOPROLOL SUCCINATE XL 50 MG TAB PO SCH (10:24)
[2020-05-20 15:19] VITALS: BP 120/79
[2020-05-20 15:52] VITALS: BP 126/93
[2020-05-20] MEDS ORDERED: WARFARIN SODIUM 2 MG TAB PO ONE (17:00)
== END 2020-05-20 17:26 | disposition home or self-care (01) | DRG 281 ==
LOC: EDBD 07:55 → ER 07:55 → TELE 07:56 → TELE-CENTR 19:42
PROVIDERS: ADMIT Internal Medicine; ATTEND Internal Medicine
DX: I25.10 Atherosclerotic heart disease of native coronary artery without angina pectoris (principal); I21.4 Non-ST elevation (NSTEMI) myocardial infarction; I50.32 Chronic diastolic (congestive) heart failure; N39.0 Urinary tract infection, site not specified; I95.9 Hypotension, unspecified; I35.1 Nonrheumatic aortic (valve) insufficiency; E66.9 Obesity, unspecified; E78.5 Hyperlipidemia, unspecified; E11.65 Type 2 diabetes mellitus with hyperglycemia; J44.9 Chronic obstructive pulmonary disease, unspecified; I25.5 Ischemic cardiomyopathy; R79.1 Abnormal coagulation profile; T45.515A Adverse effect of anticoagulants, initial encounter; Z20.822 Contact with and (suspected) exposure to COVID-19; I11.0 Hypertensive heart disease with heart failure; Z79.899 Other long term (current) drug therapy; Z95.2 Presence of prosthetic heart valve; Z95.1 Presence of aortocoronary bypass graft; Z87.442 Personal history of urinary calculi; Z83.3 Family history of diabetes mellitus; Z82.49 Family history of ischemic heart disease and other diseases of the circulatory system; Z85.118 Personal history of other malignant neoplasm of bronchus and lung; Z80.3 Family history of malignant neoplasm of breast; Z80.8 Family history of malignant neoplasm of other organs or systems; Z79.01 Long term (current) use of anticoagulants; Y92.89 Other specified places as the place of occurrence of the external cause
CPT/HCPCS: 36415; 71045; 78452; 80048; 80053; 80061; 81001; 82550; 82962; 83735; 83880; 84443; 84484; 85007; 85025; 85027; 85379; 85610; 85652; 85730; 86141; 87086; 87426; 93005; 93017; 93306; 96365; 96372; G0378; J0153; J0696; J2405

== ENCOUNTER 2020-06-12 10:19 | Inpatient (IN) | payer MEDICARE, OTHER ==
[~2020-06-12] VITALS: Ht 172.7 cm; Wt 105.8 kg
[~2020-06-12 10:19] MED LIST changes: +LEVO-28 PO; +TRAM-297 PO
[2020-06-12] MEDS ORDERED: ONDANSETRON HCL 4 MG/2 ML VIAL IV ONE (10:30)
[2020-06-12] MEDS ORDERED: MORPHINE SULFATE 4 MG/ML SYR/VIAL IV ONE (10:30)
[2020-06-12] MEDS ORDERED: SODIUM CHLORIDE 0.9% 500 ML IVB ONE (10:30)
[2020-06-12 11:23] LABS: Calcium 9.4 mg/dL (8.5-10.1)
[2020-06-12 11:26] LABS: BUN/Creatinine Ratio 15.1; Bilirubin, Total 0.6 mg/dL (0.2-1.0); Total Protein 7.4 g/dL (6.4-8.2)
[2020-06-12 11:27] LABS: Basophils # (auto) 0.1 10 ^3/uL (0-0.2); Basophils % (auto) 1.3 % (0.0-2.0); Eosinophils # (auto) 0.1 10 ^3/uL (0-0.8); Eosinophils % (auto) 3.1 % (0.0-7.0); Hematocrit 40.3 % (41.0-53.0); Lymphocytes # (auto) 1.3 10 ^3/uL (0.4-5.4); Mean Corpuscular Hgb Conc. 34.7 g/dL (32.0-36.0); Mean Corpuscular Volume 89.5 fL (80.0-100.0); Monocytes # (auto) 0.5 10 ^3/uL (0-1.3); Monocytes % (auto) 12.1 % (0.0-12.0); Neutrophils # (auto) 1.9 10 ^3/uL (1.6-8.6); Neutrophils % (auto) 49.5 % (37.0-80.0); Nucleated Red Blood Cells % 0.2 %; Platelet Count (auto) 128 10^3/uL (140-450); Red Cell Distribution Width 14.8 % (11.8-14.3); White Blood Cell 3.9 10^3/uL (4.4-10.8)
[2020-06-12 11:39] LABS: Urine Bacteria NONE SEEN /hpf (None Seen); Urine Blood 3+ /uL (Negative); Urine Mucus FEW (None Seen); Urine Specific Gravity 1.015 (1.001-1.035); Urine WBC 33 /hpf (0 - 3)
[2020-06-12] MEDS ORDERED: cefTRIAXone 1GM/50ML D5W 50 ML IV ONE (11:45)
[2020-06-12] MEDS ORDERED: LORazepam 0.5 MG TAB PO PRN (14:00)
[2020-06-12] MEDS ORDERED: ONDANSETRON HCL 4 MG/2 ML VIAL IV PRN (14:00)
[2020-06-12] MEDS ORDERED: ACETAMINOPHEN 500 MG TAB PO PRN (14:00)
[2020-06-12] MEDS: SODIUM CHLORIDE 0.9% 1,000 ML IV SCH (16:20)
[2020-06-12] MEDS: MORPHINE SULF INJ 2 MG/ML SYRINGE 1ML IV PRN (16:47)
[2020-06-12] MEDS: GABAPENTIN 300 MG CAP PO SCH (22:34)
[2020-06-12] MEDS: PRAVASTATIN SODIUM 20 MG TAB PO SCH (22:35)
[2020-06-12] MEDS: FAMOTIDINE 20 MG TAB PO SCH (22:35)
[2020-06-13] MEDS: SODIUM CHLORIDE 0.9% 1,000 ML IV SCH ×3 (02:24→23:05)
[2020-06-13] MEDS: GABAPENTIN 300 MG CAP PO SCH ×3 (05:22→23:05)
[2020-06-13 06:57] LABS: Basophils # (auto) 0.1 10 ^3/uL (0-0.2); Basophils % (auto) 1.6 % (0.0-2.0); Eosinophils # (auto) 0.1 10 ^3/uL (0-0.8); Eosinophils % (auto) 2.2 % (0.0-7.0); Hematocrit 38.3 % (41.0-53.0); Lymphocytes % (auto) 29.1 % (10.0-50.0); Mean Corpuscular Hemoglobin 30.9 pg (28.0-32.0); Mean Corpuscular Volume 90.8 fL (80.0-100.0); Monocytes # (auto) 0.4 10 ^3/uL (0-1.3); Monocytes % (auto) 12.4 % (0.0-12.0); Neutrophils # (auto) 1.9 10 ^3/uL (1.6-8.6); Neutrophils % (auto) 54.7 % (37.0-80.0); Nucleated Red Blood Cells % 0.2 %; Platelet Count (auto) 113 10^3/uL (140-450); Red Blood Cells 4.22 10^6/uL (4.5-5.90); Red Cell Distribution Width 14.9 % (11.8-14.3); White Blood Cell 3.5 10^3/uL (4.4-10.8)
[2020-06-13] MEDS: cefTRIAXone 1GM/50ML D5W 50 ML IV SCH (09:08)
[2020-06-13] MEDS: FAMOTIDINE 20 MG TAB PO SCH ×2 (09:47→23:05)
[2020-06-13] MEDS: METOPROLOL SUCCINATE XL 50 MG TAB PO SCH (09:52)
[2020-06-13] MEDS: LISINOPRIL 10 MG TAB PO SCH (09:52)
[2020-06-13 10:13] LABS: INR 1.63 (0.9-1.15)
[2020-06-13 22:32] VITALS: BP 110/74
[2020-06-13] MEDS: PRAVASTATIN SODIUM 20 MG TAB PO SCH (23:05)
[2020-06-13] MEDS: traMADol HCL 50 MG TAB PO PRN (23:06)
[2020-06-14 06:10] VITALS: BP 132/73
[2020-06-14] MEDS: GABAPENTIN 300 MG CAP PO SCH ×3 (06:22→21:26)
[2020-06-14 07:26] LABS: Basophils # (auto) 0 10 ^3/uL (0-0.2); Basophils % (auto) 1.5 % (0.0-2.0); Eosinophils # (auto) 0.1 10 ^3/uL (0-0.8); Eosinophils % (auto) 4.1 % (0.0-7.0); Hematocrit 35.5 % (41.0-53.0); Hemoglobin 12.4 g/dL (13.5-17.5); Lymphocytes # (auto) 0.9 10 ^3/uL (0.4-5.4); Lymphocytes % (auto) 30.7 % (10.0-50.0); Mean Corpuscular Hemoglobin 31.1 pg (28.0-32.0); Mean Corpuscular Hgb Conc. 34.9 g/dL (32.0-36.0); Mean Corpuscular Volume 89.1 fL (80.0-100.0); Monocytes # (auto) 0.4 10 ^3/uL (0-1.3); Monocytes % (auto) 14.3 % (0.0-12.0); Neutrophils # (auto) 1.4 10 ^3/uL (1.6-8.6); Neutrophils % (auto) 49.4 % (37.0-80.0); Platelet Count (auto) 104 10^3/uL (140-450); Red Blood Cells 3.98 10^6/uL (4.5-5.90); Red Cell Distribution Width 14.7 % (11.8-14.3); White Blood Cell 2.8 10^3/uL (4.4-10.8)
[2020-06-14 07:46] LABS: Potassium 3.7 mmol/L (3.5-5.1)
[2020-06-14 07:50] LABS: INR 1.51 (0.9-1.15); Partial Thromboplastin Time 31.8 sec (23.0-31.2)
[2020-06-14 07:51] LABS: Calcium 8.9 mg/dL (8.5-10.1)
[2020-06-14 09:00] VITALS: BP 131/81
[2020-06-14] MEDS: cefTRIAXone 1GM/50ML D5W 50 ML IV SCH (10:28)
[2020-06-14] MEDS: FAMOTIDINE 20 MG TAB PO SCH ×2 (10:29→21:26)
[2020-06-14] MEDS: LISINOPRIL 10 MG TAB PO SCH (10:30)
[2020-06-14] MEDS: METOPROLOL SUCCINATE XL 50 MG TAB PO SCH (10:30)
[2020-06-14] MEDS: SODIUM CHLORIDE 0.9% 1,000 ML IV SCH ×2 (10:31→18:15)
[2020-06-14] MEDS ORDERED: POLYETHYLENE GLYCOL 17 GM PWDR PO PRN (11:45)
[2020-06-14 13:00] VITALS: BP 100/63
[2020-06-14] MEDS: traMADol HCL 50 MG TAB PO PRN (18:26)
[2020-06-14] MEDS: PRAVASTATIN SODIUM 20 MG TAB PO SCH (21:27)
[2020-06-14 22:00] VITALS: BP 119/68
[2020-06-15] MEDS: SODIUM CHLORIDE 0.9% 1,000 ML IV SCH ×2 (04:15→14:17)
[2020-06-15 05:00] VITALS: BP 142/84
[2020-06-15] MEDS: GABAPENTIN 300 MG CAP PO SCH ×3 (06:11→21:29)
[2020-06-15] MEDS: cefTRIAXone 1GM/50ML D5W 50 ML IV SCH (08:23)
[2020-06-15 09:00] VITALS: BP 146/78
[2020-06-15] MEDS: FAMOTIDINE 20 MG TAB PO SCH ×2 (09:59→21:31)
[2020-06-15] MEDS: LISINOPRIL 10 MG TAB PO SCH (10:00)
[2020-06-15] MEDS: METOPROLOL SUCCINATE XL 50 MG TAB PO SCH (10:00)
[2020-06-15 13:00] VITALS: BP 139/74
[2020-06-15] MEDS: MORPHINE SULF INJ 2 MG/ML SYRINGE 1ML IV PRN (19:36)
[2020-06-15] MEDS: PRAVASTATIN SODIUM 20 MG TAB PO SCH (21:30)
[2020-06-15 22:00] VITALS: BP 130/76
[2020-06-16] VITALS (10 sets, daily range): BP systolic 104–154; BP diastolic 70–89
[2020-06-16] MEDS: SODIUM CHLORIDE 0.9% 1,000 ML IV SCH ×3 (00:46→20:15)
[2020-06-16] MEDS: GABAPENTIN 300 MG CAP PO SCH ×3 (06:00→21:13)
[2020-06-16 06:19] LABS: Basophils # (auto) 0.1 10 ^3/uL (0-0.2); Basophils % (auto) 2.5 % (0.0-2.0); Eosinophils # (auto) 0.1 10 ^3/uL (0-0.8); Hemoglobin 12.7 g/dL (13.5-17.5); Lymphocytes # (auto) 0.7 10 ^3/uL (0.4-5.4); Mean Corpuscular Hemoglobin 31.4 pg (28.0-32.0); Mean Corpuscular Hgb Conc. 35.3 g/dL (32.0-36.0); Mean Corpuscular Volume 89.1 fL (80.0-100.0); Monocytes # (auto) 0.4 10 ^3/uL (0-1.3); Neutrophils # (auto) 1.5 10 ^3/uL (1.6-8.6); Neutrophils % (auto) 53.5 % (37.0-80.0); Nucleated Red Blood Cells % 0.1 %; Platelet Count (auto) 107 10^3/uL (140-450); Red Blood Cells 4.04 10^6/uL (4.5-5.90); Red Cell Distribution Width 14.8 % (11.8-14.3); White Blood Cell 2.8 10^3/uL (4.4-10.8)
[2020-06-16 06:25] LABS: INR 1.15 (0.9-1.15); Partial Thromboplastin Time 27.6 sec (23.0-31.2)
[2020-06-16 06:38] LABS: BUN/Creatinine Ratio 12.2; Potassium 3.9 mmol/L (3.5-5.1)
[2020-06-16] MEDS: METOPROLOL SUCCINATE XL 50 MG TAB PO SCH (10:00)
[2020-06-16] MEDS: FAMOTIDINE 20 MG TAB PO SCH ×2 (10:51→21:13)
[2020-06-16] MEDS: cefTRIAXone 1GM/50ML D5W 50 ML IV SCH (10:51)
[2020-06-16] MEDS: LISINOPRIL 10 MG TAB PO SCH (10:51)
[2020-06-16] MEDS ORDERED: TETRACAINE 1% INJ 2 ML VIAL IJ ONE (14:55)
[2020-06-16] MEDS ORDERED: IOHEXOL 300 MG/ML 100ML BOTTLE IJ ONE (14:56)
[2020-06-16] MEDS ORDERED: MIDAZOLAM HCL 1MG/1ML-2 ML VIAL ONE (14:59)
[2020-06-16] MEDS ORDERED: fentaNYL CITRATE 100 MCG/2 ML VL ONE (14:59)
[2020-06-16] MEDS ORDERED: DexAMETHasone SOD PHOS 10MG/1ML VIAL INJ ONE (15:00)
[2020-06-16] MEDS ORDERED: PROPOFOL 10 MG/ML 20 ML IV ONE (15:00)
[2020-06-16] MEDS ORDERED: MORPHINE SULF INJ 2 MG/ML SYRINGE 1ML IV PRN (15:45)
[2020-06-16] MEDS ORDERED: ePHEDrine SULFATE 50 MG/ML AMP IV PRN (15:45)
[2020-06-16] MEDS ORDERED: ONDANSETRON HCL 4 MG/2 ML VIAL IV PRN (15:45)
[2020-06-16] MEDS ORDERED: LABETALOL HCL 5 MG/ML 4ML SYRINGE IV PRN (15:45)
[2020-06-16] MEDS: PRAVASTATIN SODIUM 20 MG TAB PO SCH (21:13)
[2020-06-16] MEDS: traMADol HCL 50 MG TAB PO PRN (21:13)
[2020-06-17] VITALS (12 sets, daily range): BP systolic 97–143; BP diastolic 52–86
[2020-06-17] MEDS: SODIUM CHLORIDE 0.9% 1,000 ML IV SCH ×2 (02:03→16:15)
[2020-06-17] MEDS: MORPHINE SULF INJ 2 MG/ML SYRINGE 1ML IV PRN (02:53)
[2020-06-17] MEDS: GABAPENTIN 300 MG CAP PO SCH ×2 (05:52→14:41)
[2020-06-17] MEDS: cefTRIAXone 1GM/50ML D5W 50 ML IV SCH (09:41)
[2020-06-17] MEDS: FAMOTIDINE 20 MG TAB PO SCH (09:42)
[2020-06-17] MEDS: METOPROLOL SUCCINATE XL 50 MG TAB PO SCH (09:50)
[2020-06-17] MEDS: LISINOPRIL 10 MG TAB PO SCH (09:51)
== END 2020-06-17 15:00 | disposition home or self-care (01) | DRG 668 ==
LOC: ER 10:19 → OVERFLOW 10:20 → WEST WING 06-13 21:45
PROVIDERS: ADMIT Internal Medicine; ATTEND Internal Medicine
PROC: 0TP98DZ Removal of Intraluminal Device from Ureter, Via Natural or Artificial Opening Endoscopic (ICD-10-PCS; principal; 2020-06-16 15:02)
PROC: 0TC68ZZ Extirpation of Matter from Right Ureter, Via Natural or Artificial Opening Endoscopic (ICD-10-PCS; 2020-06-16 15:02)
DX: N13.6 Pyonephrosis (principal); G93.41 Metabolic encephalopathy; I50.32 Chronic diastolic (congestive) heart failure; C83.07 Small cell B-cell lymphoma, spleen; D61.818 Other pancytopenia; I24.9 Acute ischemic heart disease, unspecified; N32.81 Overactive bladder; D69.6 Thrombocytopenia, unspecified; I35.1 Nonrheumatic aortic (valve) insufficiency; E78.5 Hyperlipidemia, unspecified; J44.9 Chronic obstructive pulmonary disease, unspecified; E66.9 Obesity, unspecified; D72.819 Decreased white blood cell count, unspecified; R31.0 Gross hematuria; Z20.822 Contact with and (suspected) exposure to COVID-19; I11.0 Hypertensive heart disease with heart failure; I25.10 Atherosclerotic heart disease of native coronary artery without angina pectoris; R55 Syncope and collapse; M10.9 Gout, unspecified; I95.9 Hypotension, unspecified; N40.0 Benign prostatic hyperplasia without lower urinary tract symptoms; Z80.1 Family history of malignant neoplasm of trachea, bronchus and lung; Z80.3 Family history of malignant neoplasm of breast; Z82.49 Family history of ischemic heart disease and other diseases of the circulatory system; Z79.01 Long term (current) use of anticoagulants; Z83.3 Family history of diabetes mellitus; Z85.528 Personal history of other malignant neoplasm of kidney; Z87.442 Personal history of urinary calculi; Z90.79 Acquired absence of other genital organ(s); Z95.1 Presence of aortocoronary bypass graft; Z95.2 Presence of prosthetic heart valve; Z95.5 Presence of coronary angioplasty implant and graft; Z68.35 Body mass index [BMI] 35.0-35.9, adult
CPT/HCPCS: 36415; 71045; 74176; 80048; 80053; 81001; 83690; 85025; 85610; 85730; 87426; 93005; 96361; 96365; 96375; G0378; J0696; J1100; J2250; J2405; J2704

== ENCOUNTER → 2020-08-07 | Outpatient (CLI) | payer OTHER ==
[2020-08-07 08:25] LABS: Hemoglobin 14.6 g/dL (13.5-17.5); White Blood Cell 2.8 10^3/uL (4.4-10.8)
[2020-08-07 08:28] LABS: Mean Corpuscular Hemoglobin 31.1 pg (28.0-32.0); Mean Corpuscular Hgb Conc. 34.8 g/dL (32.0-36.0); Mean Corpuscular Volume 89.4 fL (80.0-100.0); Platelet Count (auto) 101 10^3/uL (140-450)
[2020-08-07 08:31] LABS: Basophils % (manual) 0 (0.0-2.0); Blast Cells 0; Metamyelocytes % 0; Myelocytes % 0; Promyelocytes % 0
[2020-08-07 09:36] LABS: Potassium 3.9 mmol/L (3.5-5.1)
[2020-08-07 09:43] LABS: Albumin 4.4 g/dL (3.4-5.0); BUN/Creatinine Ratio 16.7; Bilirubin, Total 0.7 mg/dL (0.2-1.0); Calcium 9.4 mg/dL (8.5-10.1); Total Protein 7.2 g/dL (6.4-8.2)
[2020-08-07 11:10] LABS: Band Neutrophils % (manual) 1; Eosinophils % (manual) 7 (0-7); Lymphocytes % (manual) 45 (10.0-50.0); Monocytes % (manual) 6 (0-12); Reactive Lymphocytes 1
== END | disposition home or self-care (01) ==
LOC: LAB 08:11
PROVIDERS: ATTEND Internal Medicine
DX: C85.90 Non-Hodgkin lymphoma, unspecified, unspecified site (principal); C83.00 Small cell B-cell lymphoma, unspecified site
CPT/HCPCS: 36415; 80053; 83615; 85007; 85027

== ENCOUNTER → 2020-09-04 | Outpatient (CLI) | payer OTHER ==
[~2020-09-04] MED LIST changes: -LISI-648 PO; +LISI-716 PO
[2020-09-04 11:43] LABS: Urine Bacteria NONE SEEN /hpf (None Seen); Urine Blood Negative /uL (Negative); Urine Mucus FEW (None Seen); Urine Specific Gravity 1.018 (1.001-1.035); Urine WBC 10 /hpf (0 - 3)
== END | disposition home or self-care (01) ==
LOC: LAB 11:19
PROVIDERS: ATTEND Urology
DX: N39.0 Urinary tract infection, site not specified (principal)
CPT/HCPCS: 81001; 87086

== ENCOUNTER 2020-09-21 18:54 | Emergency (ER) | payer OTHER ==
[~2020-09-21] VITALS: Ht 172.7 cm; Wt 99.8 kg
[2020-09-21 19:50] LABS: Hematocrit 43.2 % (41.0-53.0); Hemoglobin 15.4 g/dL (13.5-17.5); Mean Corpuscular Hemoglobin 31.7 pg (28.0-32.0); Mean Corpuscular Hgb Conc. 35.7 g/dL (32.0-36.0); Mean Corpuscular Volume 88.7 fL (80.0-100.0); Platelet Count (auto) 90 10^3/uL (140-450); Red Blood Cells 4.87 10^6/uL (4.5-5.90); Red Cell Distribution Width 14.5 % (11.8-14.3); White Blood Cell 4.4 10^3/uL (4.4-10.8)
[2020-09-21 19:59] LABS: Magnesium 2.3 mg/dL (1.6-2.6)
[2020-09-21 20:01] LABS: Albumin 4.3 g/dL (3.4-5.0); Anion Gap 7 (5-15); Blood Urea Nitrogen 16 mg/dL (7-18); Calcium 9.4 mg/dL (8.5-10.1); Carbon Dioxide 25 mmol/L (21-32); Chloride 105 mmol/L (98-107); Glucose 126 mg/dL (74-106); Sodium 137 mmol/L (136-145)
[2020-09-21 20:06] LABS: Alanine Aminotransferase 19 U/L (16-61); Alkaline Phosphatase 65 U/L (45-117); Aspartate Aminotransferase 21 U/L (15-37); BUN/Creatinine Ratio 20.3; Bilirubin, Total 1.1 mg/dL (0.2-1.0); GFR African American 122 mL/min; GFR Non-African American 101 mL/min; Total Protein 7.5 g/dL (6.4-8.2)
[2020-09-21 20:07] LABS: Basophils % (manual) 0 (0.0-2.0); Blast Cells 0; Eosinophils % (manual) 0 (0-7); Myelocytes % 0; Promyelocytes % 0; Reactive Lymphocytes 0
[2020-09-21 20:30] LABS: Band Neutrophils % (manual) 1; Lymphocytes % (manual) 15 (10.0-50.0); Metamyelocytes % 3; Monocytes % (manual) 22 (0-12)
[2020-09-21 20:31] LABS: INR 2.66 (0.9-1.15)
[2020-09-21 22:13] LABS: Urine Bacteria FEW /hpf (None Seen); Urine Blood 2+ /uL (Negative); Urine Mucus FEW (None Seen); Urine Specific Gravity 1.023 (1.001-1.035); Urine WBC 639 /hpf (0 - 3)
[2020-09-21] MEDS ORDERED: SODIUM CHLORIDE 0.9% 500 ML IV ONE (23:00)
[2020-09-21] MEDS ORDERED: cefTRIAXone 1GM/50ML D5W 50 ML IV ONE (23:00)
[2020-09-22 01:57] VITALS: BP 11/54
== END 2020-09-22 02:03 | disposition home or self-care (01) ==
LOC: ER 18:55
DX: N39.0 Urinary tract infection, site not specified (principal)
CPT/HCPCS: 36415; 71045; 74176; 80053; 81001; 83605; 83690; 83735; 83880; 84484; 85007; 85027; 85379; 85610; 93005; 96365; 99285; J0696

== ENCOUNTER → 2020-10-09 | Day surgery (SDC) | payer OTHER ==
[2020-10-06 14:04] LABS: Basophils # (auto) 0 10 ^3/uL (0-0.2); Basophils % (auto) 0.3 % (0.0-2.0); Eosinophils # (auto) 0.1 10 ^3/uL (0-0.8); Eosinophils % (auto) 2.8 % (0.0-7.0); Hematocrit 40.8 % (41.0-53.0); Hemoglobin 14.7 g/dL (13.5-17.5); Lymphocytes # (auto) 1.7 10 ^3/uL (0.4-5.4); Lymphocytes % (auto) 32.3 % (10.0-50.0); Mean Corpuscular Hemoglobin 31.4 pg (28.0-32.0); Mean Corpuscular Hgb Conc. 35.9 g/dL (32.0-36.0); Mean Corpuscular Volume 87.5 fL (80.0-100.0); Monocytes # (auto) 0.8 10 ^3/uL (0-1.3); Neutrophils # (auto) 2.5 10 ^3/uL (1.6-8.6); Neutrophils % (auto) 49.6 % (37.0-80.0); Nucleated Red Blood Cells % 0.2 %; Red Blood Cells 4.66 10^6/uL (4.5-5.90); Red Cell Distribution Width 14.7 % (11.8-14.3); White Blood Cell 5.1 10^3/uL (4.4-10.8)
[2020-10-06 14:12] LABS: Urine Bacteria NONE SEEN /hpf (None Seen); Urine Blood Negative /uL (Negative); Urine Specific Gravity 1.014 (1.001-1.035); Urine WBC 48 /hpf (0 - 3)
[2020-10-06 14:56] LABS: Albumin 4.2 g/dL (3.4-5.0); Calcium 9.4 mg/dL (8.5-10.1); Potassium 4.3 mmol/L (3.5-5.1)
[2020-10-06 14:59] LABS: Bilirubin, Total 0.7 mg/dL (0.2-1.0); Total Protein 7.5 g/dL (6.4-8.2)
[~2020-10-09] MED LIST changes: +CLOP75TA28 PO; -HYDR-531 PO; -LEVO-28 PO; -LISI-716 PO; -TRAM-297 PO; +ceFAZolin 1GM/50ML 0 ML IV ONE
== END | disposition home or self-care (01) ==
LOC: SUR 07:14
PROVIDERS: ATTEND Anesthesiology Pain Medicine
DX: M48.061 Spinal stenosis, lumbar region without neurogenic claudication (principal); I50.9 Heart failure, unspecified; I25.810 Atherosclerosis of coronary artery bypass graft(s) without angina pectoris; J44.9 Chronic obstructive pulmonary disease, unspecified; Z20.822 Contact with and (suspected) exposure to COVID-19; Z98.890 Other specified postprocedural states; Z79.899 Other long term (current) drug therapy; Z88.1 Allergy status to other antibiotic agents; Z80.3 Family history of malignant neoplasm of breast; Z80.2 Family history of malignant neoplasm of other respiratory and intrathoracic organs; Z53.8 Procedure and treatment not carried out for other reasons
CPT/HCPCS: 36415; 80053; 81001; 85025; 87086; U0003; J0690

== ENCOUNTER → 2020-11-14 | Outpatient (CLI) | payer OTHER ==
[~2020-11-14] MED LIST changes: -ceFAZolin 1GM/50ML 0 ML IV ONE
== END | disposition home or self-care (01) ==
LOC: LAB 12:23
PROVIDERS: ATTEND Internal Medicine
DX: N39.0 Urinary tract infection, site not specified (principal)
CPT/HCPCS: 87086

== ENCOUNTER → 2021-01-08 | Outpatient (CLI) | payer OTHER ==
[2021-01-08 14:13] LABS: Basophils # (auto) 0.1 10 ^3/uL (0-0.2); Basophils % (auto) 1.5 % (0.0-2.0); Eosinophils # (auto) 0.1 10 ^3/uL (0-0.8); Eosinophils % (auto) 2.1 % (0.0-7.0); Hematocrit 40.3 % (41.0-53.0); Lymphocytes # (auto) 1.7 10 ^3/uL (0.4-5.4); Lymphocytes % (auto) 29.2 % (10.0-50.0); Mean Corpuscular Hemoglobin 30.7 pg (28.0-32.0); Mean Corpuscular Hgb Conc. 34.7 g/dL (32.0-36.0); Mean Corpuscular Volume 88.7 fL (80.0-100.0); Monocytes # (auto) 0.6 10 ^3/uL (0-1.3); Monocytes % (auto) 10.4 % (0.0-12.0); Neutrophils # (auto) 3.3 10 ^3/uL (1.6-8.6); Neutrophils % (auto) 56.8 % (37.0-80.0); Red Blood Cells 4.55 10^6/uL (4.5-5.90); Red Cell Distribution Width 14.8 % (11.8-14.3); White Blood Cell 5.8 10^3/uL (4.4-10.8)
[2021-01-08 14:51] LABS: Potassium 4.2 mmol/L (3.5-5.1)
[2021-01-08 15:02] LABS: BUN/Creatinine Ratio 11.9; Bilirubin, Total 0.7 mg/dL (0.2-1.0); Total Protein 7.2 g/dL (6.4-8.2)
== END | disposition home or self-care (01) ==
LOC: LAB 14:00
PROVIDERS: ATTEND Internal Medicine
DX: C85.90 Non-Hodgkin lymphoma, unspecified, unspecified site (principal); C83.00 Small cell B-cell lymphoma, unspecified site
CPT/HCPCS: 36415; 80053; 83615; 85025

== ENCOUNTER → 2021-04-01 | Outpatient (CLI) | payer OTHER ==
[2021-04-01 08:48] LABS: Basophils # (auto) 0.1 10 ^3/uL (0-0.2); Basophils % (auto) 1.6 % (0.0-2.0); Eosinophils # (auto) 0.1 10 ^3/uL (0-0.8); Eosinophils % (auto) 1.6 % (0.0-7.0); Hematocrit 44.2 % (41.0-53.0); Hemoglobin 14.8 g/dL (13.5-17.5); Lymphocytes # (auto) 1.5 10 ^3/uL (0.4-5.4); Lymphocytes % (auto) 29.6 % (10.0-50.0); Mean Corpuscular Hemoglobin 30.5 pg (28.0-32.0); Mean Corpuscular Hgb Conc. 33.6 g/dL (32.0-36.0); Mean Corpuscular Volume 90.7 fL (80.0-100.0); Monocytes # (auto) 0.4 10 ^3/uL (0-1.3); Monocytes % (auto) 7.6 % (0.0-12.0); Neutrophils # (auto) 2.9 10 ^3/uL (1.6-8.6); Neutrophils % (auto) 59.6 % (37.0-80.0); Nucleated Red Blood Cells % 0.1 %; Red Blood Cells 4.87 10^6/uL (4.5-5.90); Red Cell Distribution Width 14.4 % (11.8-14.3); White Blood Cell 4.9 10^3/uL (4.4-10.8)
[2021-04-01 10:22] LABS: Calcium 9.7 mg/dL (8.5-10.1); Potassium 4.2 mmol/L (3.5-5.1)
[2021-04-01 10:39] LABS: Albumin 4.6 g/dL (3.4-5.0); BUN/Creatinine Ratio 16.9; Bilirubin, Total 0.6 mg/dL (0.2-1.0); Total Protein 7.2 g/dL (6.4-8.2)
== END | disposition home or self-care (01) ==
LOC: LAB 08:32
PROVIDERS: ATTEND Internal Medicine
DX: C85.90 Non-Hodgkin lymphoma, unspecified, unspecified site (principal); C83.00 Small cell B-cell lymphoma, unspecified site
CPT/HCPCS: 36415; 80053; 82306; 83615; 85025

== ENCOUNTER → 2021-07-09 | Outpatient (CLI) | payer OTHER ==
[2021-07-09 16:54] LABS: Urine Bacteria NONE SEEN /hpf (None Seen); Urine Blood Negative /uL (Negative); Urine Mucus FEW (None Seen); Urine Specific Gravity 1.025 (1.001-1.035); Urine WBC 17 /hpf (0 - 3)
== END | disposition home or self-care (01) ==
LOC: LAB 15:36
PROVIDERS: ATTEND Urology
DX: N39.0 Urinary tract infection, site not specified (principal)
CPT/HCPCS: 81001; 87086

== ENCOUNTER → 2021-09-03 | Outpatient (CLI) | payer OTHER ==
[2021-09-03 10:50] LABS: Urine Bacteria NONE SEEN /hpf (None Seen); Urine Blood Negative /uL (Negative); Urine Specific Gravity 1.005 (1.001-1.035); Urine WBC 3 /hpf (0 - 3)
== END | disposition home or self-care (01) ==
LOC: LAB 10:37
PROVIDERS: ATTEND Internal Medicine Nephrology
DX: N39.0 Urinary tract infection, site not specified (principal)
CPT/HCPCS: 81001; 87086

== ENCOUNTER → 2021-09-28 | Outpatient (CLI) | payer OTHER | END | disposition home or self-care (01) | LOC: LAB 13:29 | PROVIDERS: ATTEND Internal Medicine | DX: N39.0 Urinary tract infection, site not specified (principal) | CPT/HCPCS: 87086 ==

== ENCOUNTER → 2021-10-20 | Outpatient (CLI) | payer OTHER ==
[2021-10-20 10:46] LABS: Urine Bacteria NONE SEEN /hpf (None Seen); Urine Blood Negative /uL (Negative); Urine Mucus FEW (None Seen); Urine Specific Gravity 1.021 (1.001-1.035); Urine WBC 62 /hpf (0 - 3)
== END | disposition home or self-care (01) ==
LOC: LAB 10:29
PROVIDERS: ATTEND Internal Medicine
DX: N39.0 Urinary tract infection, site not specified (principal)
CPT/HCPCS: 81001

== ENCOUNTER → 2021-10-28 | Outpatient (CLI) | payer OTHER ==
[2021-10-28 09:30] LABS: Basophils # (auto) 0.1 10 ^3/uL (0-0.2); Eosinophils # (auto) 0.1 10 ^3/uL (0-0.8); Eosinophils % (auto) 1.8 % (0.0-7.0); Hematocrit 41.8 % (41.0-53.0); Hemoglobin 14.3 g/dL (13.5-17.5); Lymphocytes # (auto) 1.7 10 ^3/uL (0.4-5.4); Lymphocytes % (auto) 29.1 % (10.0-50.0); Mean Corpuscular Hemoglobin 30.3 pg (28.0-32.0); Mean Corpuscular Hgb Conc. 34.1 g/dL (32.0-36.0); Mean Corpuscular Volume 88.9 fL (80.0-100.0); Monocytes # (auto) 0.6 10 ^3/uL (0-1.3); Neutrophils # (auto) 3.3 10 ^3/uL (1.6-8.6); Neutrophils % (auto) 58.1 % (37.0-80.0); Nucleated Red Blood Cells % 0.1 %; Red Cell Distribution Width 14.6 % (11.8-14.3); White Blood Cell 5.7 10^3/uL (4.4-10.8)
[2021-10-28 09:32] LABS: INR 3.44 (0.9-1.15)
[2021-10-28 09:44] LABS: Calcium 9.1 mg/dL (8.5-10.1); Potassium 4.1 mmol/L (3.5-5.1)
[2021-10-28 09:49] LABS: BUN/Creatinine Ratio 13.7; Bilirubin, Total 0.6 mg/dL (0.2-1.0); Total Protein 7.1 g/dL (6.4-8.2)
[2021-10-28 09:52] LABS: % Iron Saturation 24.7 % (20-55)
[2021-10-28 09:53] LABS: Ferritin 86.3 ng/mL (10-322)
[2021-10-28 09:54] LABS: Folate (Folic Acid) > 24.00 ng/mL (5.38-24)
[2021-10-29 09:29] LABS: Hepatitis B Surface Antibody Negative (Negative)
[2021-10-29 10:06] LABS: Hepatitis A Total Antibody Negative (Negative)
[2021-10-29 11:26] LABS: Hepatitis C Antibody Negative (Negative)
== END | disposition home or self-care (01) ==
LOC: LAB 08:33
PROVIDERS: ATTEND Internal Medicine
DX: C85.90 Non-Hodgkin lymphoma, unspecified, unspecified site (principal); C83.00 Small cell B-cell lymphoma, unspecified site; D69.6 Thrombocytopenia, unspecified
CPT/HCPCS: 36415; 80053; 82607; 82728; 82746; 83540; 83550; 83615; 84311; 85025; 85610; 86038; 86704; 86706; 86708; 86803; 87340

== ENCOUNTER 2021-11-13 21:43 | Emergency (ER) | payer OTHER ==
[~2021-11-13] VITALS: Ht 172.7 cm; Wt 96.3 kg
[2021-11-14 02:25] LABS: Basophils # (auto) 0.1 10 ^3/uL (0-0.2); Basophils % (auto) 1.1 % (0.0-2.0); Eosinophils # (auto) 0.1 10 ^3/uL (0-0.8); Eosinophils % (auto) 1.9 % (0.0-7.0); Hematocrit 41.5 % (41.0-53.0); Hemoglobin 14.3 g/dL (13.5-17.5); Lymphocytes # (auto) 1.2 10 ^3/uL (0.4-5.4); Lymphocytes % (auto) 21.3 % (10.0-50.0); Mean Corpuscular Hemoglobin 30.8 pg (28.0-32.0); Mean Corpuscular Hgb Conc. 34.5 g/dL (32.0-36.0); Mean Corpuscular Volume 89.2 fL (80.0-100.0); Monocytes # (auto) 0.6 10 ^3/uL (0-1.3); Monocytes % (auto) 10.2 % (0.0-12.0); Neutrophils # (auto) 3.7 10 ^3/uL (1.6-8.6); Neutrophils % (auto) 65.5 % (37.0-80.0); Nucleated Red Blood Cells % 0.1 %; Red Blood Cells 4.65 10^6/uL (4.5-5.90); Red Cell Distribution Width 14.3 % (11.8-14.3); White Blood Cell 5.6 10^3/uL (4.4-10.8)
[2021-11-14] MEDS ORDERED: HYDR-3682 PO (02:57)
[2021-11-14] MEDS ORDERED: hydrOXYzine 25 MG TAB or CAP PO ONE (03:15)
[2021-11-14 04:15] VITALS: BP 148/72
== END 2021-11-14 04:21 | disposition home or self-care (01) ==
LOC: ER 21:43
DX: R23.3 Spontaneous ecchymoses (principal); I10 Essential (primary) hypertension; E78.5 Hyperlipidemia, unspecified; I25.2 Old myocardial infarction; Z98.61 Coronary angioplasty status; Z88.1 Allergy status to other antibiotic agents; Z86.73 Personal history of transient ischemic attack (TIA), and cerebral infarction without residual deficits
CPT/HCPCS: 36415; 85025

== ENCOUNTER → 2021-11-20 | Outpatient (CLI) | payer OTHER ==
[~2021-11-20] MED LIST changes: +HYDR-3682 PO
[2021-11-20 12:59] LABS: Urine Bacteria NONE SEEN /hpf (None Seen); Urine Blood 1+ /uL (Negative); Urine Mucus FEW (None Seen); Urine Specific Gravity 1.025 (1.001-1.035); Urine WBC 7 /hpf (0 - 3)
== END | disposition home or self-care (01) ==
LOC: LAB 12:02
PROVIDERS: ATTEND Internal Medicine
DX: N39.0 Urinary tract infection, site not specified (principal)
CPT/HCPCS: 81001; 87086

== ENCOUNTER → 2021-12-16 | Outpatient (CLI) | payer OTHER ==
[2021-12-16 11:36] LABS: Basophils # (auto) 0.1 10 ^3/uL (0-0.2); Basophils % (auto) 1.2 % (0.0-2.0); Eosinophils # (auto) 0.1 10 ^3/uL (0-0.8); Hematocrit 40.7 % (41.0-53.0); Hemoglobin 13.6 g/dL (13.5-17.5); Lymphocytes # (auto) 1.7 10 ^3/uL (0.4-5.4); Lymphocytes % (auto) 33.3 % (10.0-50.0); Mean Corpuscular Hemoglobin 29.9 pg (28.0-32.0); Mean Corpuscular Hgb Conc. 33.5 g/dL (32.0-36.0); Mean Corpuscular Volume 89.2 fL (80.0-100.0); Monocytes # (auto) 0.5 10 ^3/uL (0-1.3); Monocytes % (auto) 10.4 % (0.0-12.0); Neutrophils # (auto) 2.8 10 ^3/uL (1.6-8.6); Neutrophils % (auto) 53.1 % (37.0-80.0); Nucleated Red Blood Cells % 0.1 %; Red Blood Cells 4.56 10^6/uL (4.5-5.90); Red Cell Distribution Width 14.1 % (11.8-14.3); White Blood Cell 5.2 10^3/uL (4.4-10.8)
[2021-12-16 12:16] LABS: Calcium 9.2 mg/dL (8.5-10.1); Potassium 4.1 mmol/L (3.5-5.1)
[2021-12-16 12:20] LABS: BUN/Creatinine Ratio 16.8; Bilirubin, Total 0.7 mg/dL (0.2-1.0)
[2021-12-17 08:06] LABS: RPR Non Reactive (Non Reactive)
== END | disposition home or self-care (01) ==
LOC: LAB 11:05
DX: L95.9 Vasculitis limited to the skin, unspecified (principal)
CPT/HCPCS: 36415; 80053; 84443; 85025; 86038; 86592

== ENCOUNTER → 2022-01-06 | Outpatient (CLI) | payer OTHER ==
[2022-01-06 10:17] LABS: Basophils # (auto) 0.1 10 ^3/uL (0-0.2); Basophils % (auto) 0.9 % (0.0-2.0); Eosinophils # (auto) 0.1 10 ^3/uL (0-0.8); Eosinophils % (auto) 1.8 % (0.0-7.0); Hematocrit 41.4 % (41.0-53.0); Lymphocytes # (auto) 1.2 10 ^3/uL (0.4-5.4); Lymphocytes % (auto) 21.1 % (10.0-50.0); Mean Corpuscular Hgb Conc. 33.7 g/dL (32.0-36.0); Mean Corpuscular Volume 89.1 fL (80.0-100.0); Monocytes # (auto) 0.5 10 ^3/uL (0-1.3); Monocytes % (auto) 9.3 % (0.0-12.0); Neutrophils # (auto) 3.8 10 ^3/uL (1.6-8.6); Neutrophils % (auto) 66.9 % (37.0-80.0); Nucleated Red Blood Cells % 0.1 %; Red Blood Cells 4.65 10^6/uL (4.5-5.90); Red Cell Distribution Width 13.7 % (11.8-14.3); White Blood Cell 5.7 10^3/uL (4.4-10.8)
[2022-01-06 10:56] LABS: Albumin 4.1 g/dL (3.4-5.0); Bilirubin, Total 0.7 mg/dL (0.2-1.0); Calcium 8.8 mg/dL (8.5-10.1); Total Protein 6.5 g/dL (6.4-8.2)
== END | disposition home or self-care (01) ==
LOC: LAB 09:55
PROVIDERS: ATTEND Internal Medicine
DX: C85.90 Non-Hodgkin lymphoma, unspecified, unspecified site (principal); C83.00 Small cell B-cell lymphoma, unspecified site; D69.6 Thrombocytopenia, unspecified
CPT/HCPCS: 36415; 80053; 83615; 85025

== ENCOUNTER → 2022-01-18 | Outpatient (CLI) | payer MEDICARE, OTHER | END | disposition home or self-care (01) | LOC: XYW 07:39 | PROVIDERS: ATTEND Internal Medicine | DX: I08.8 Other rheumatic multiple valve diseases (principal); I20.9 Angina pectoris, unspecified | CPT/HCPCS: 93306 ==

== ENCOUNTER → 2022-02-25 | Outpatient (CLI) | payer OTHER ==
[~2022-02-25] VITALS: Ht 175.3 cm; Wt 97.5 kg
[~2022-02-25] MED LIST changes: +ADENOSINE 82 MG in GIVE UN-DILUTED 0 ML IV ONE
== END | disposition home or self-care (01) ==
LOC: XYW 08:03
PROVIDERS: ATTEND Internal Medicine
DX: I20.9 Angina pectoris, unspecified (principal); I10 Essential (primary) hypertension; E78.5 Hyperlipidemia, unspecified; Z95.2 Presence of prosthetic heart valve; Z95.5 Presence of coronary angioplasty implant and graft
CPT/HCPCS: 78452; 93017; A9500; J0153

== ENCOUNTER → 2022-03-26 | Outpatient (CLI) | payer OTHER ==
[~2022-03-26] MED LIST changes: -ADENOSINE 82 MG in GIVE UN-DILUTED 0 ML IV ONE
[2022-03-26 10:32] LABS: Basophils # (auto) 0 10 ^3/uL (0-0.2); Basophils % (auto) 0.9 % (0.0-2.0); Eosinophils # (auto) 0.1 10 ^3/uL (0-0.8); Eosinophils % (auto) 1.2 % (0.0-7.0); Hematocrit 42.1 % (41.0-53.0); Hemoglobin 14.1 g/dL (13.5-17.5); Lymphocytes # (auto) 1.2 10 ^3/uL (0.4-5.4); Lymphocytes % (auto) 25.6 % (10.0-50.0); Mean Corpuscular Hemoglobin 29.9 pg (28.0-32.0); Mean Corpuscular Hgb Conc. 33.6 g/dL (32.0-36.0); Mean Corpuscular Volume 89.1 fL (80.0-100.0); Monocytes # (auto) 0.8 10 ^3/uL (0-1.3); Monocytes % (auto) 17.3 % (0.0-12.0); Neutrophils # (auto) 2.5 10 ^3/uL (1.6-8.6); Nucleated Red Blood Cells % 0.2 %; Red Blood Cells 4.72 10^6/uL (4.5-5.90); Red Cell Distribution Width 13.9 % (11.8-14.3); White Blood Cell 4.5 10^3/uL (4.4-10.8)
[2022-03-26 10:47] LABS: Urine Bacteria NONE SEEN /hpf (None Seen); Urine Blood Negative /uL (Negative); Urine Mucus FEW (None Seen); Urine Specific Gravity 1.021 (1.001-1.035); Urine WBC 6 /hpf (0 - 3)
[2022-03-26 11:09] LABS: BUN/Creatinine Ratio 19.5; Calcium 8.9 mg/dL (8.5-10.1); Phosphorus 3.2 mg/dL (2.5-4.90); Uric Acid 5.9 mg/dL (3.5-7.2)
[2022-03-27 10:59] LABS: Protein, Urine 36.4 mg/dL (0.0-11.9)
== END | disposition home or self-care (01) ==
LOC: LAB 10:06
PROVIDERS: ATTEND Internal Medicine Nephrology
DX: E56.9 Vitamin deficiency, unspecified (principal); E21.3 Hyperparathyroidism, unspecified; R80.9 Proteinuria, unspecified
CPT/HCPCS: 36415; 80069; 81001; 82306; 82570; 83970; 84156; 84550; 85025

== ENCOUNTER 2022-06-23 10:04 | Day surgery (SDC) | payer OTHER ==
[2022-06-22 12:25] LABS: Basophils # (auto) 0.1 10 ^3/uL (0-0.2); Basophils % (auto) 1.3 % (0.0-2.0); Eosinophils # (auto) 0.1 10 ^3/uL (0-0.8); Eosinophils % (auto) 1.5 % (0.0-7.0); Hematocrit 38.9 % (41.0-53.0); Hemoglobin 13.7 g/dL (13.5-17.5); Lymphocytes % (auto) 15.9 % (10.0-50.0); Mean Corpuscular Hemoglobin 30.4 pg (28.0-32.0); Mean Corpuscular Hgb Conc. 35.1 g/dL (32.0-36.0); Mean Corpuscular Volume 86.8 fL (80.0-100.0); Monocytes # (auto) 0.7 10 ^3/uL (0-1.3); Monocytes % (auto) 11.5 % (0.0-12.0); Neutrophils # (auto) 4.3 10 ^3/uL (1.6-8.6); Neutrophils % (auto) 69.8 % (37.0-80.0); Nucleated Red Blood Cells % 0.1 %; Red Blood Cells 4.49 10^6/uL (4.5-5.90); Red Cell Distribution Width 13.8 % (11.8-14.3); White Blood Cell 6.2 10^3/uL (4.4-10.8)
[2022-06-22 12:53] LABS: INR 1.5 (0.9-1.15); Partial Thromboplastin Time 32.9 sec (24.6-33.4)
[2022-06-22 13:06] LABS: Calcium 9.2 mg/dL (8.5-10.1); Potassium 4.1 mmol/L (3.5-5.1)
[2022-06-22 13:09] LABS: Albumin 3.5 g/dL (3.4-5.0); BUN/Creatinine Ratio 18.3
[2022-06-22 13:11] LABS: Bilirubin, Total 0.5 mg/dL (0.2-1.0); Total Protein 7.1 g/dL (6.4-8.2)
[~2022-06-23] VITALS: Ht 172.7 cm; Wt 97.5 kg
[~2022-06-23 10:04] MED LIST changes: +ASPI-543 PO; +BACL10TA PO; +CARB-80 PO; -GABA-339 PO; +GABA800T97 PO; -HYDR-3682 PO; +HYDR-4798 PO; -METO25TA93 PO; +PROP60CA34 PO; +TAMS0.4C36 PO
[2022-06-23] MEDS ORDERED: ANGIOMAX 250 MG VIAL IV ONE (11:32)
[2022-06-23] MEDS ORDERED: MIDAZOLAM HCL 2MG/2ML 2ml VIAL (1mg/ml) ONE ×2 (11:33→13:09)
[2022-06-23] MEDS ORDERED: SODIUM CHL 0.9% 50 ML ONE (11:33)
[2022-06-23] MEDS ORDERED: fentaNYL CITRATE 100 MCG/2 ML VL ONE ×2 (11:33→13:08)
[2022-06-23] MEDS ORDERED: IODIXANOL 320MG/ML 100ML BTL IV ONE ×2 (11:44→12:41)
[2022-06-23] MEDS ORDERED: LIDOCAINE 2%HCL (LOCAL ANESTH.) INJ 10ml MDV ONE ×2 (11:45→11:47)
[2022-06-23] MEDS ORDERED: IOHEXOL 350 MG/ML 500ML BOTTLE IJ ONE (13:13)
== END 2022-06-23 16:28 | disposition home or self-care (01) ==
LOC: CATH 10:04
PROVIDERS: ATTEND Internal Medicine
DX: I70.0 Atherosclerosis of aorta (principal); J44.9 Chronic obstructive pulmonary disease, unspecified; Z95.5 Presence of coronary angioplasty implant and graft; Z88.1 Allergy status to other antibiotic agents; Z82.49 Family history of ischemic heart disease and other diseases of the circulatory system; Z83.3 Family history of diabetes mellitus; Z80.1 Family history of malignant neoplasm of trachea, bronchus and lung; Z80.3 Family history of malignant neoplasm of breast; Z80.9 Family history of malignant neoplasm, unspecified; Z79.82 Long term (current) use of aspirin; Z87.891 Personal history of nicotine dependence; Z20.822 Contact with and (suspected) exposure to COVID-19
CPT/HCPCS: 36415; 80053; 85025; 85610; 85730; 92920; 93458; C1751; C1760; C1769; C1887; C1894; J0583; J1644; J2001; J2250; J3010; Q9967; U0003; 99152; 99153

== ENCOUNTER → 2022-06-28 | Outpatient (CLI) | payer OTHER | END | disposition home or self-care (01) | LOC: LAB 10:29 | PROVIDERS: ATTEND Internal Medicine | DX: N39.0 Urinary tract infection, site not specified (principal) | CPT/HCPCS: 87086 ==

== ENCOUNTER → 2022-07-15 | Outpatient (CLI) | payer OTHER, MEDICARE ==
[2022-07-15 15:03] LABS: Urine Bacteria NONE SEEN /hpf (None Seen); Urine Blood Negative /uL (Negative); Urine Mucus FEW (None Seen); Urine Specific Gravity 1.021 (1.001-1.035); Urine WBC 10 /hpf (0 - 3)
== END | disposition home or self-care (01) ==
LOC: LAB 14:35
PROVIDERS: ATTEND Urology
DX: N39.0 Urinary tract infection, site not specified (principal)
CPT/HCPCS: 81001; 87086

== ENCOUNTER → 2022-08-18 | Outpatient (CLI) | payer OTHER ==
[2022-08-18 09:33] LABS: Basophils # (auto) 0 10 ^3/uL (0-0.2); Eosinophils # (auto) 0.1 10 ^3/uL (0-0.8); Eosinophils % (auto) 1.9 % (0.0-7.0); Hematocrit 41.5 % (41.0-53.0); Hemoglobin 14.3 g/dL (13.5-17.5); Lymphocytes % (auto) 25.6 % (10.0-50.0); Mean Corpuscular Hemoglobin 30.4 pg (28.0-32.0); Mean Corpuscular Hgb Conc. 34.5 g/dL (32.0-36.0); Mean Corpuscular Volume 88.2 fL (80.0-100.0); Monocytes # (auto) 0.5 10 ^3/uL (0-1.3); Monocytes % (auto) 12.8 % (0.0-12.0); Neutrophils # (auto) 2.3 10 ^3/uL (1.6-8.6); Neutrophils % (auto) 58.7 % (37.0-80.0); Nucleated Red Blood Cells % 0.4 %; Red Blood Cells 4.71 10^6/uL (4.5-5.90); Red Cell Distribution Width 14.2 % (11.8-14.3); White Blood Cell 3.9 10^3/uL (4.4-10.8)
[2022-08-18 10:06] LABS: Potassium 4.8 mmol/L (3.5-5.1)
[2022-08-18 10:16] LABS: Albumin 4.1 g/dL (3.4-5.0); BUN/Creatinine Ratio 17.6 (10.0-20.0); Bilirubin, Total 0.8 mg/dL (0.2-1.0); Calcium 9.4 mg/dL (8.5-10.1)
[2022-08-18 10:51] LABS: Ferritin 62.7 ng/mL (10-322)
[2022-08-18 20:41] LABS: Folate (Folic Acid) 18.42 ng/mL (5.38-24)
== END | disposition home or self-care (01) ==
LOC: LAB 08:52
PROVIDERS: ATTEND Internal Medicine
DX: G25.81 Restless legs syndrome (principal)
CPT/HCPCS: 36415; 80053; 82607; 82728; 82746; 85025

== ENCOUNTER → 2022-08-25 | Outpatient (CLI) | payer OTHER ==
[2022-08-25 10:37] LABS: Albumin 4.2 g/dL (3.4-5.0)
[2022-08-25 10:38] LABS: Basophils # (auto) 0 10 ^3/uL (0-0.2); Basophils % (auto) 1.2 % (0.0-2.0); Eosinophils # (auto) 0.1 10 ^3/uL (0-0.8); Eosinophils % (auto) 2.2 % (0.0-7.0); Hematocrit 41.2 % (41.0-53.0); Hemoglobin 14.2 g/dL (13.5-17.5); Lymphocytes # (auto) 1.2 10 ^3/uL (0.4-5.4); Lymphocytes % (auto) 32.4 % (10.0-50.0); Mean Corpuscular Hemoglobin 30.4 pg (28.0-32.0); Mean Corpuscular Hgb Conc. 34.4 g/dL (32.0-36.0); Mean Corpuscular Volume 88.3 fL (80.0-100.0); Monocytes # (auto) 0.4 10 ^3/uL (0-1.3); Monocytes % (auto) 12.2 % (0.0-12.0); Neutrophils # (auto) 1.9 10 ^3/uL (1.6-8.6); Nucleated Red Blood Cells % 0.2 %; Red Blood Cells 4.66 10^6/uL (4.5-5.90); Red Cell Distribution Width 14.2 % (11.8-14.3); White Blood Cell 3.6 10^3/uL (4.4-10.8)
[2022-08-25 10:52] LABS: BUN/Creatinine Ratio 15.8 (10.0-20.0); Bilirubin, Total 0.7 mg/dL (0.2-1.0); Total Protein 6.9 g/dL (6.4-8.2)
[2022-08-25 11:26] LABS: Potassium 4.8 mmol/L (3.5-5.1)
== END | disposition home or self-care (01) ==
LOC: LAB 09:56
PROVIDERS: ATTEND Internal Medicine
DX: C85.90 Non-Hodgkin lymphoma, unspecified, unspecified site (principal); C83.00 Small cell B-cell lymphoma, unspecified site; D69.6 Thrombocytopenia, unspecified
CPT/HCPCS: 36415; 80053; 83615; 85025

== ENCOUNTER → 2022-08-31 | Outpatient (CLI) | payer OTHER ==
[2022-08-31 11:51] LABS: Urine Bacteria NONE SEEN /hpf (None Seen); Urine Blood Negative /uL (Negative); Urine Hyaline Cast MANY /lpf (0 - 2); Urine Mucus FEW (None Seen); Urine Specific Gravity 1.027 (1.001-1.035); Urine WBC 7 /hpf (0 - 3)
== END | disposition home or self-care (01) ==
LOC: LAB 08:40
PROVIDERS: ATTEND Urology
DX: N39.0 Urinary tract infection, site not specified (principal)
CPT/HCPCS: 81001; 87086

== ENCOUNTER 2022-11-14 06:12 | Inpatient (IN) | payer OTHER ==
[~2022-11-14] VITALS: Ht 172.7 cm; Wt 93.9 kg
[~2022-11-14 06:12] MED LIST changes: +CARB-118 PO; -CARB-80 PO; +WARF-112 PO; -WARF4TAB33 PO
[2022-11-14 06:53] LABS: Basophils # (auto) 0.1 10 ^3/uL (0-0.2); Basophils % (auto) 2.9 % (0.0-2.0); Eosinophils # (auto) 0.1 10 ^3/uL (0-0.8); Eosinophils % (auto) 4.4 % (0.0-7.0); Hematocrit 40.3 % (41.0-53.0); Hemoglobin 13.8 g/dL (13.5-17.5); Lymphocytes # (auto) 0.9 10 ^3/uL (0.4-5.4); Lymphocytes % (auto) 34.1 % (10.0-50.0); Mean Corpuscular Hemoglobin 30.4 pg (28.0-32.0); Mean Corpuscular Hgb Conc. 34.2 g/dL (32.0-36.0); Mean Corpuscular Volume 88.8 fL (80.0-100.0); Monocytes # (auto) 0.4 10 ^3/uL (0-1.3); Monocytes % (auto) 17.1 % (0.0-12.0); Neutrophils # (auto) 1.1 10 ^3/uL (1.6-8.6); Neutrophils % (auto) 41.5 % (37.0-80.0); Nucleated Red Blood Cells % 0.2 %; Red Blood Cells 4.54 10^6/uL (4.5-5.90); Red Cell Distribution Width 14.7 % (11.8-14.3); White Blood Cell 2.6 10^3/uL (4.4-10.8)
[2022-11-14 07:10] LABS: Albumin 3.8 g/dL (3.4-5.0); Magnesium 2.8 mg/dL (1.6-2.6); Potassium 3.9 mmol/L (3.5-5.1)
[2022-11-14 07:14] LABS: BUN/Creatinine Ratio 14.6 (10.0-20.0); Bilirubin, Total 0.8 mg/dL (0.2-1.0); Total Protein 6.9 g/dL (6.4-8.2)
[2022-11-14] MEDS ORDERED: ONDANSETRON HCL 4 MG/2 ML VIAL IV ONE (07:30)
[2022-11-14] MEDS ORDERED: ASPirin 81 mg TAB PO ONE (07:30)
[2022-11-14] MEDS ORDERED: ACETAMINOPHEN 325 MG TAB PO ONE (07:30)
[2022-11-14] MEDS ORDERED: MORPHINE SULFATE 4 MG/ML SYR/VIAL IV PRN (07:30)
[2022-11-14 07:51] VITALS: PULSE 51; RESP 16; O2SAT 96
[2022-11-14 08:32] LABS: INR 2.19 (0.9-1.15); Partial Thromboplastin Time 36.3 SEC (24.5-34.5)
[2022-11-14 08:39] LABS: Urine Bacteria NONE SEEN /hpf (None Seen); Urine Blood TRACE /uL (Negative); Urine Specific Gravity 1.009 (1.001-1.035); Urine WBC 4 /hpf (0 - 3)
[2022-11-14 08:55] LABS: Alcohol, Urine < 3.0 mg/dL (0-10); Amphetamine Screen, Urine NEGATIVE (NEGATIVE); Barbiturate Scree,Urine NEGATIVE (NEGATIVE); Benzodiazephine Screen, Urine NEGATIVE (NEGATIVE); Cannabinoid Screen, Urine NEGATIVE (NEGATIVE); Cocaine Screen, Urine NEGATIVE (NEGATIVE); Opiate Scree,Urine NEGATIVE (NEGATIVE); Phencyclidine Screen, Urine NEGATIVE (NEGATIVE)
[2022-11-14] MEDS ORDERED: NITROGLYCERIN 0.4 MG SL TAB SL ONE (10:00)
[2022-11-14] MEDS ORDERED: MORPHINE SULFATE INJ 2 MG/ml SYRG IV PRN ×2 (10:30)
[2022-11-14] MEDS ORDERED: HYDROcodone-ACET 5/325MG TAB PO PRN (10:30)
[2022-11-14] MEDS ORDERED: NITROGLYCERIN 0.4 MG SL TAB SL PRN (10:30)
[2022-11-14] MEDS ORDERED: ACETAMINOPHEN 325 MG TAB PO PRN (10:30)
[2022-11-14] MEDS ORDERED: ALBUTEROL SULF 2.5 MG/0.5ML(0.5%) NEB SOLN NEB PRN (10:45)
[2022-11-14] MEDS ORDERED: IPRATROPIUM BROM 0.5 MG/2.5ML INH SOL NEB PRN (10:45)
[2022-11-14 10:51] VITALS: BP 110/62; PULSE 51; RESP 12; O2SAT 97
[2022-11-14] MEDS: cefTRIAXone 1GM/50ML D5W 50 ML IV SCH (11:13)
[2022-11-14 12:34] LABS: Alcohol, Urine < 3.0 mg/dL (0-10); Amphetamine Screen, Urine NEGATIVE (NEGATIVE); Barbiturate Scree,Urine NEGATIVE (NEGATIVE); Benzodiazephine Screen, Urine NEGATIVE (NEGATIVE); Cannabinoid Screen, Urine NEGATIVE (NEGATIVE); Cocaine Screen, Urine NEGATIVE (NEGATIVE); Opiate Scree,Urine NEGATIVE (NEGATIVE); Phencyclidine Screen, Urine NEGATIVE (NEGATIVE)
[2022-11-14 13:43] LABS: Albumin 3.5 g/dL (3.4-5.0); Calcium 8.8 mg/dL (8.5-10.1); Potassium 4.8 mmol/L (3.5-5.1)
[2022-11-14 13:46] LABS: BUN/Creatinine Ratio 15.1 (10.0-20.0); Bilirubin, Total 0.7 mg/dL (0.2-1.0); Total Protein 6.6 g/dL (6.4-8.2)
[2022-11-14] MEDS ORDERED: GABAPENTIN 400 MG CAP PO SCH (14:00)
[2022-11-14] MEDS: CARBIDOPA W LEVODOPA 25/100mg TABLET PO SCH ×2 (14:23→22:02)
[2022-11-14] MEDS ORDERED: TAMSULOSIN HYDROCHLORIDE 0.4 MG CAP PO SCH (18:00)
[2022-11-14 19:12] VITALS: O2SAT 98
[2022-11-14] MEDS ORDERED: ASPirin-EC 81 mg tab PO SCH (22:00)
[2022-11-14] MEDS ORDERED: DOCUSATE SOD 100 MG CAP PO SCH (22:00)
[2022-11-15 01:28] VITALS: TEMP 98.1
[2022-11-15] MEDS: CARBIDOPA W LEVODOPA 25/100mg TABLET PO SCH (06:12)
[2022-11-15] MEDS ORDERED: ONDANSETRON HCL 4 MG/2 ML VIAL IV PRN (06:15)
[2022-11-15 06:28] LABS: Basophils # (auto) 0.1 10 ^3/uL (0-0.2); Basophils % (auto) 2.2 % (0.0-2.0); Eosinophils # (auto) 0.1 10 ^3/uL (0-0.8); Hematocrit 42.2 % (41.0-53.0); Hemoglobin 14.5 g/dL (13.5-17.5); Lymphocytes # (auto) 0.8 10 ^3/uL (0.4-5.4); Lymphocytes % (auto) 30.6 % (10.0-50.0); Mean Corpuscular Hemoglobin 30.5 pg (28.0-32.0); Mean Corpuscular Hgb Conc. 34.4 g/dL (32.0-36.0); Mean Corpuscular Volume 88.7 fL (80.0-100.0); Monocytes # (auto) 0.4 10 ^3/uL (0-1.3); Neutrophils # (auto) 1.3 10 ^3/uL (1.6-8.6); Neutrophils % (auto) 50.2 % (37.0-80.0); Nucleated Red Blood Cells % 0.3 %; Red Blood Cells 4.76 10^6/uL (4.5-5.90); Red Cell Distribution Width 14.6 % (11.8-14.3); White Blood Cell 2.7 10^3/uL (4.4-10.8)
[2022-11-15 06:48] LABS: INR 2.25 (0.9-1.15); Partial Thromboplastin Time 37.2 SEC (24.5-34.5)
[2022-11-15 07:02] LABS: Albumin 4.1 g/dL (3.4-5.0); Calcium 9.6 mg/dL (8.5-10.1)
[2022-11-15 07:07] LABS: BUN/Creatinine Ratio 14.9 (10.0-20.0); Bilirubin, Total 0.9 mg/dL (0.2-1.0); Total Protein 7.6 g/dL (6.4-8.2)
[2022-11-15 08:00] VITALS: BP 130/71; PULSE 63; RESP 16; O2SAT 94
[2022-11-15] MEDS ORDERED: CARBIDOPA W LEVODOPA CR 25/100mg TABLET PO ONE (08:45)
[2022-11-15] MEDS: cefTRIAXone 1GM/50ML D5W 50 ML IV SCH (09:00)
[2022-11-15] MEDS ORDERED: CLOPIDOGREL BISULFATE 75 MG TAB PO SCH ×2 (10:00)
[2022-11-15] MEDS ORDERED: PATIENTS OWN MEDICATION (Propranolol Hcl (Inderal La) 1 CAP) PO SCH (10:00)
[2022-11-15] MEDS ORDERED: PANTOPRAZOLE 40 MG/10 ML VIAL INJ IV SCH (10:00)
[2022-11-15] MEDS ORDERED: ATORVASTATIN 20 MG TAB PO SCH (10:00)
[2022-11-15] MEDS ORDERED: BACLOFEN 10 MG TAB PO SCH (10:00)
[2022-11-15] MEDS ORDERED: CARBIDOPA W LEVODOPA CR 25/100mg TABLET PO SCH (14:00)
== END 2022-11-15 09:03 | disposition left against medical advice (07) | DRG 313 ==
LOC: ER 06:12 → TELE 10:32
PROVIDERS: ADMIT Internal Medicine
DX: R07.89 Other chest pain (principal); J96.01 Acute respiratory failure with hypoxia; I25.810 Atherosclerosis of coronary artery bypass graft(s) without angina pectoris; N30.01 Acute cystitis with hematuria; C85.90 Non-Hodgkin lymphoma, unspecified, unspecified site; I13.0 Hypertensive heart and chronic kidney disease with heart failure and stage 1 through stage 4 chronic kidney disease, or unspecified chronic kidney disease; E78.5 Hyperlipidemia, unspecified; M32.9 Systemic lupus erythematosus, unspecified; D69.59 Other secondary thrombocytopenia; E66.9 Obesity, unspecified; J44.9 Chronic obstructive pulmonary disease, unspecified; N18.9 Chronic kidney disease, unspecified; I50.9 Heart failure, unspecified; Z53.29 Procedure and treatment not carried out because of patient's decision for other reasons; G20 Parkinson's disease; F11.10 Opioid abuse, uncomplicated; Z98.61 Coronary angioplasty status; Z80.1 Family history of malignant neoplasm of trachea, bronchus and lung; Z80.3 Family history of malignant neoplasm of breast; Z82.49 Family history of ischemic heart disease and other diseases of the circulatory system; Z83.3 Family history of diabetes mellitus; Z85.3 Personal history of malignant neoplasm of breast; Z88.1 Allergy status to other antibiotic agents; Z95.2 Presence of prosthetic heart valve; Z88.2 Allergy status to sulfonamides; Z88.8 Allergy status to other drugs, medicaments and biological substances; Z68.31 Body mass index [BMI] 31.0-31.9, adult
CPT/HCPCS: 36415; 71045; 71275; 80053; 80061; 80307; 80320; 81001; 83036; 83605; 83735; 83880; 84443; 84484; 85025; 85379; 85610; 85730; 87040; 87086; 93005; 93306; G0378; J0696; J2405

== ENCOUNTER → 2022-11-16 | Outpatient (CLI) | payer OTHER ==
[2022-11-16 09:46] LABS: Hematocrit 39.9 % (41.0-53.0); Hemoglobin 13.6 g/dL (13.5-17.5); Mean Corpuscular Hemoglobin 30.4 pg (28.0-32.0); Mean Corpuscular Hgb Conc. 34.1 g/dL (32.0-36.0); Mean Corpuscular Volume 89.2 fL (80.0-100.0); Red Blood Cells 4.47 10^6/uL (4.5-5.90); Red Cell Distribution Width 14.3 % (11.8-14.3); White Blood Cell 3.1 10^3/uL (4.4-10.8)
[2022-11-16 10:04] LABS: Band Neutrophils % (manual) 0; Basophils % (manual) 0 (0.0-2.0); Blast Cells 0; Eosinophils % (manual) 0 (0-7); Metamyelocytes % 0; Myelocytes % 0; Promyelocytes % 0; Reactive Lymphocytes 0
[2022-11-16 10:38] LABS: Albumin 3.9 g/dL (3.4-5.0); BUN/Creatinine Ratio 14.6 (10.0-20.0); Bilirubin, Total 0.8 mg/dL (0.2-1.0); Calcium 9.2 mg/dL (8.5-10.1); Magnesium 2.9 mg/dL (1.6-2.6); Total Protein 7.1 g/dL (6.4-8.2)
[2022-11-16 11:56] LABS: Lymphocytes % (manual) 39 (10.0-50.0); Monocytes % (manual) 16 (0-12)
== END | disposition home or self-care (01) ==
LOC: LAB 09:28
PROVIDERS: ATTEND Physician Assistant
DX: C83.00 Small cell B-cell lymphoma, unspecified site (principal); C85.90 Non-Hodgkin lymphoma, unspecified, unspecified site; D69.6 Thrombocytopenia, unspecified
CPT/HCPCS: 36415; 80053; 82306; 82728; 83540; 83615; 83735; 85007; 85027

== ENCOUNTER → 2022-12-02 | Outpatient (CLI) | payer MEDICARE, OTHER | END | disposition home or self-care (01) | LOC: LAB 12:13 | PROVIDERS: ATTEND Urology | DX: R35.0 Frequency of micturition (principal) | CPT/HCPCS: 84153 ==

== ENCOUNTER 2023-03-18 07:51 | Emergency (ER) | payer MEDICARE, OTHER ==
[~2023-03-18] VITALS: Ht 170.2 cm; Wt 104.5 kg
[2023-03-18 08:26] VITALS: PULSE 79; RESP 13; O2SAT 94
[2023-03-18 08:26] LABS: Albumin 4.4 g/dL (3.2-4.8); Alkaline Phosphatase 68 U/L (46-116); Anion Gap 6 (5-15); Aspartate Aminotransferase 17 U/L (13-40); BUN/Creatinine Ratio 12.1 (10.0-20.0); Bilirubin, Total 0.9 mg/dL (0.2-1.0); Blood Urea Nitrogen 11 mg/dL (9-23); Calcium 9.6 mg/dL (8.5-10.1); Carbon Dioxide 28 mmol/L (20-30); Chloride 107 mmol/L (98-107); Glucose 113 mg/dL (74-106); Sodium 141 mmol/L (136-145); Total Protein 6.8 g/dL (5.7-8.2)
[2023-03-18 08:30] LABS: Basophils # (auto) 0.1 10 ^3/uL (0-0.2); Basophils % (auto) 1.9 % (0.0-2.0); Eosinophils # (auto) 0.1 10 ^3/uL (0-0.8); Hematocrit 42.3 % (41.0-53.0); Hemoglobin 14.4 g/dL (13.5-17.5); Lymphocytes # (auto) 1.1 10 ^3/uL (0.4-5.4); Lymphocytes % (auto) 30.9 % (10.0-50.0); Mean Corpuscular Hemoglobin 30.6 pg (28.0-32.0); Mean Corpuscular Hgb Conc. 34.1 g/dL (32.0-36.0); Mean Corpuscular Volume 89.6 fL (80.0-100.0); Monocytes # (auto) 0.5 10 ^3/uL (0-1.3); Monocytes % (auto) 13.7 % (0.0-12.0); Neutrophils # (auto) 1.9 10 ^3/uL (1.6-8.6); Neutrophils % (auto) 51.5 % (37.0-80.0); Nucleated Red Blood Cells % 0.5 %; Red Blood Cells 4.72 10^6/uL (4.5-5.90); White Blood Cell 3.7 10^3/uL (4.4-10.8)
[2023-03-18 08:57] LABS: Alanine Aminotransferase 9 U/L (7-40)
[2023-03-18] MEDS ORDERED: ASPirin 81 mg TAB PO ONE (09:00)
[2023-03-18] MEDS ORDERED: NITROGLYCERIN 2% OINT 1GM PKG TD ONE (09:00)
[2023-03-18 09:35] LABS: INR 1.11 (0.9-1.15); Partial Thromboplastin Time 29.1 SEC (24.5-34.5); Prothrombin Time 11.6 sec (9.3-11.8)
[2023-03-18 11:02] LABS: Urine Bacteria NONE SEEN /hpf (None Seen); Urine Blood Negative /uL (Negative); Urine Clarity Clear (Clear); Urine Color Yellow (Yellow); Urine Mucus FEW (None Seen); Urine Protein, UAD Negative (Negative); Urine Specific Gravity 1.012 (1.001-1.035); Urine Urobilinogen Normal (Negative); Urine WBC 3 /hpf (0 - 3)
[2023-03-18 12:40] VITALS: BP 136/82; PULSE 80; RESP 16; TEMP 97.8; O2SAT 95
== END 2023-03-18 12:32 | disposition left against medical advice (07) ==
LOC: ER 07:51
DX: R07.9 Chest pain, unspecified (principal); E78.5 Hyperlipidemia, unspecified; I10 Essential (primary) hypertension; E11.9 Type 2 diabetes mellitus without complications; Z87.442 Personal history of urinary calculi; Z88.1 Allergy status to other antibiotic agents
CPT/HCPCS: 36415; 71045; 80053; 81001; 83735; 83880; 84484; 85025; 85610; 85730; 93005

== ENCOUNTER → 2023-03-28 | Outpatient (CLI) | payer OTHER ==
[2023-03-28 10:18] LABS: Basophils # (auto) 0.1 10 ^3/uL (0-0.2); Basophils % (auto) 3.7 % (0.0-2.0); Eosinophils # (auto) 0.1 10 ^3/uL (0-0.8); Eosinophils % (auto) 2.8 % (0.0-7.0); Hematocrit 43.9 % (41.0-53.0); Hemoglobin 15.1 g/dL (13.5-17.5); Lymphocytes # (auto) 1.4 10 ^3/uL (0.4-5.4); Lymphocytes % (auto) 40.4 % (10.0-50.0); Mean Corpuscular Hgb Conc. 34.5 g/dL (32.0-36.0); Monocytes # (auto) 0.5 10 ^3/uL (0-1.3); Neutrophils # (auto) 1.2 10 ^3/uL (1.6-8.6); Neutrophils % (auto) 37.1 % (37.0-80.0); Nucleated Red Blood Cells % 0.2 %; Red Blood Cells 4.87 10^6/uL (4.5-5.90); Red Cell Distribution Width 13.9 % (11.8-14.3); White Blood Cell 3.4 10^3/uL (4.4-10.8)
[2023-03-28 11:02] LABS: Alanine Aminotransferase 13 U/L (7-40); Albumin 4.7 g/dL (3.2-4.8); Alkaline Phosphatase 67 U/L (46-116); Anion Gap 8 (5-15); Aspartate Aminotransferase 15 U/L (13-40); BUN/Creatinine Ratio 10.1 (10.0-20.0); Blood Urea Nitrogen 9 mg/dL (9-23); Carbon Dioxide 28 mmol/L (20-30); Chloride 105 mmol/L (98-107); Glucose 105 mg/dL (74-106); Potassium 4.3 mmol/L (3.5-5.1); Sodium 141 mmol/L (136-145)
[2023-03-28 11:03] LABS: Total Protein 7.6 g/dL (5.7-8.2)
== END | disposition home or self-care (01) ==
LOC: LAB 09:56
PROVIDERS: ATTEND Internal Medicine
DX: C85.90 Non-Hodgkin lymphoma, unspecified, unspecified site (principal); C83.00 Small cell B-cell lymphoma, unspecified site; D69.6 Thrombocytopenia, unspecified
CPT/HCPCS: 36415; 80053; 83615; 85025

== ENCOUNTER → 2023-04-15 | Outpatient (CLI) | payer OTHER ==
[2023-04-15 09:44] LABS: Hematocrit 40.9 % (41.0-53.0); Hemoglobin 14.1 g/dL (13.5-17.5); Mean Corpuscular Hemoglobin 30.9 pg (28.0-32.0); Mean Corpuscular Hgb Conc. 34.4 g/dL (32.0-36.0); Mean Corpuscular Volume 89.7 fL (80.0-100.0); Red Blood Cells 4.56 10^6/uL (4.5-5.90); Red Cell Distribution Width 14.1 % (11.8-14.3)
[2023-04-15 09:49] LABS: Basophils % (manual) 0 (0.0-2.0); Blast Cells 0; Promyelocytes % 0; Reactive Lymphocytes 0
[2023-04-15 10:16] LABS: Band Neutrophils % (manual) 12; Eosinophils % (manual) 5 (0-7); Lymphocytes % (manual) 31 (10.0-50.0); Metamyelocytes % 4; Monocytes % (manual) 10 (0-12); Myelocytes % 5; Platelet Estimate Decreased
[2023-04-15 11:01] LABS: Alanine Aminotransferase 12 U/L (7-40); Albumin 4.2 g/dL (3.2-4.8); Alkaline Phosphatase 64 U/L (46-116); Anion Gap 8 (5-15); Aspartate Aminotransferase 17 U/L (13-40); BUN/Creatinine Ratio 11.6 (10.0-20.0); Blood Urea Nitrogen 10 mg/dL (9-23); Calcium 9.7 mg/dL (8.5-10.1); Carbon Dioxide 28 mmol/L (20-30); Chloride 107 mmol/L (98-107); Glucose 98 mg/dL (74-106); Potassium 4.5 mmol/L (3.5-5.1); Sodium 143 mmol/L (136-145)
[2023-04-15 11:02] LABS: Bilirubin, Total 0.6 mg/dL (0.2-1.0); Total Protein 6.9 g/dL (5.7-8.2)
== END | disposition home or self-care (01) ==
LOC: LAB 09:23
PROVIDERS: ATTEND Internal Medicine
DX: C85.90 Non-Hodgkin lymphoma, unspecified, unspecified site (principal); C83.00 Small cell B-cell lymphoma, unspecified site; D69.6 Thrombocytopenia, unspecified
CPT/HCPCS: 36415; 80053; 83615; 85007; 85027

== ENCOUNTER → 2023-05-09 | Outpatient (CLI) | payer OTHER | END | disposition home or self-care (01) | LOC: XYW 09:12 | PROVIDERS: ATTEND Student in an Organized Health Care Education/Training Program | DX: I07.1 Rheumatic tricuspid insufficiency (principal); R00.1 Bradycardia, unspecified; I50.42 Chronic combined systolic (congestive) and diastolic (congestive) heart failure | CPT/HCPCS: 93306 ==

== ENCOUNTER → 2023-06-02 | Outpatient (CLI) | payer OTHER ==
[2023-06-02 11:01] LABS: Basophils # (auto) 0.1 10 ^3/uL (0-0.2); Basophils % (auto) 2.6 % (0.0-2.0); Eosinophils # (auto) 0.1 10 ^3/uL (0-0.8); Eosinophils % (auto) 3.1 % (0.0-7.0); Hematocrit 39.4 % (41.0-53.0); Hemoglobin 13.6 g/dL (13.5-17.5); Lymphocytes # (auto) 1.2 10 ^3/uL (0.4-5.4); Lymphocytes % (auto) 41.4 % (10.0-50.0); Mean Corpuscular Hemoglobin 30.9 pg (28.0-32.0); Mean Corpuscular Hgb Conc. 34.5 g/dL (32.0-36.0); Mean Corpuscular Volume 89.5 fL (80.0-100.0); Monocytes # (auto) 0.4 10 ^3/uL (0-1.3); Monocytes % (auto) 15.6 % (0.0-12.0); Neutrophils % (auto) 37.3 % (37.0-80.0); Nucleated Red Blood Cells % 0.5 %; Red Cell Distribution Width 14.4 % (11.8-14.3); White Blood Cell 2.8 10^3/uL (4.4-10.8)
[2023-06-02 11:29] LABS: Albumin 4.2 g/dL (3.2-4.8); Alkaline Phosphatase 59 U/L (46-116); Anion Gap 7 (5-15); Aspartate Aminotransferase 12 U/L (13-40); BUN/Creatinine Ratio 15.9 (10.0-20.0); Bilirubin, Total 0.8 mg/dL (0.2-1.0); Blood Urea Nitrogen 14 mg/dL (9-23); Calcium 9.8 mg/dL (8.5-10.1); Carbon Dioxide 28 mmol/L (20-30); Chloride 106 mmol/L (98-107); Cholesterol 115 mg/dL (< 200); Glucose 100 mg/dL (74-106); HDL Cholesterol 33 mg/dL (40-59); LDL Cholesterol 67 mg/dL (< 100); Potassium 4.4 mmol/L (3.5-5.1); Sodium 141 mmol/L (136-145); Total Protein 6.7 g/dL (5.7-8.2); Triglycerides 119 mg/dL (< 150)
[2023-06-02 11:32] LABS: Alanine Aminotransferase < 9 U/L (7-40)
[2023-06-02 11:48] LABS: Urine Bacteria NONE SEEN /hpf (None Seen); Urine Blood Negative /uL (Negative); Urine Clarity Clear (Clear); Urine Color Colorless (Yellow); Urine Protein, UAD Negative (Negative); Urine Specific Gravity 1.011 (1.001-1.035); Urine Urobilinogen Normal (Negative); Urine WBC 32 /hpf (0 - 3); Urine pH 5.5 (5.0-8.0)
== END | disposition home or self-care (01) ==
LOC: LAB 10:35
PROVIDERS: ATTEND Internal Medicine
DX: Z00.01 Encounter for general adult medical examination with abnormal findings (principal)
CPT/HCPCS: 36415; 80053; 80061; 81001; 83036; 84439; 84443; 85025

== ENCOUNTER 2023-07-27 06:46 | Day surgery (SDC) | payer MEDICARE, OTHER ==
[2023-07-25 14:44] LABS: Basophils # (auto) 0.1 10 ^3/uL (0-0.2); Eosinophils # (auto) 0.1 10 ^3/uL (0-0.8); Eosinophils % (auto) 3.2 % (0.0-7.0); Hematocrit 41.1 % (41.0-53.0); Hemoglobin 14.1 g/dL (13.5-17.5); Lymphocytes # (auto) 1.6 10 ^3/uL (0.4-5.4); Lymphocytes % (auto) 43.9 % (10.0-50.0); Mean Corpuscular Hemoglobin 31.2 pg (28.0-32.0); Mean Corpuscular Hgb Conc. 34.4 g/dL (32.0-36.0); Mean Corpuscular Volume 90.5 fL (80.0-100.0); Monocytes # (auto) 0.6 10 ^3/uL (0-1.3); Monocytes % (auto) 16.1 % (0.0-12.0); Neutrophils # (auto) 1.2 10 ^3/uL (1.6-8.6); Neutrophils % (auto) 33.8 % (37.0-80.0); Nucleated Red Blood Cells % 0.3 %; Red Blood Cells 4.54 10^6/uL (4.5-5.90); Red Cell Distribution Width 14.1 % (11.8-14.3); White Blood Cell 3.7 10^3/uL (4.4-10.8)
[2023-07-25 15:05] LABS: Alanine Aminotransferase < 9 U/L (7-40); Albumin 4.3 g/dL (3.2-4.8); Alkaline Phosphatase 65 U/L (46-116); Anion Gap 3 (5-15); Aspartate Aminotransferase 16 U/L (13-40); BUN/Creatinine Ratio 16.5 (10.0-20.0); Bilirubin, Total 0.5 mg/dL (0.2-1.0); Blood Urea Nitrogen 15 mg/dL (9-23); Calcium 9.7 mg/dL (8.5-10.1); Carbon Dioxide 31 mmol/L (20-30); Chloride 109 mmol/L (98-107); Glucose 99 mg/dL (74-106); INR 2.35 (0.9-1.15); Partial Thromboplastin Time 37.6 SEC (24.5-34.5); Potassium 4.4 mmol/L (3.5-5.1); Prothrombin Time 23.3 sec (9.3-11.8); Sodium 143 mmol/L (136-145); Total Protein 6.6 g/dL (5.7-8.2)
[~2023-07-27] VITALS: Ht 175.3 cm; Wt 100.2 kg
[~2023-07-27 06:46] MED LIST changes: +CARB1CAP3 PO; +CLOB0.055 TOP; -GABA800T97 PO; +KETO2SHA5 EX; +PREG150C PO
[2023-07-27] MEDS: LIDOCAINE VISCOUS 2% 15ML UD PO ONE (08:53)
[2023-07-27] MEDS: MIDAZOLAM HCL 2MG/2ML 2ml VIAL (1mg/ml) IV ONE (08:54)
[2023-07-27] MEDS: fentaNYL CITRATE 100 MCG/2 ML VL IV ONE (08:56)
[2023-07-27 09:05] VITALS: BP 135/71; PULSE 68; RESP 12; O2SAT 94
[2023-07-27 09:19] VITALS: BP 137/80; PULSE 68; RESP 12; O2SAT 92
[2023-07-27 09:34] VITALS: BP 149/79; PULSE 69; RESP 15; O2SAT 92
[2023-07-27 09:48] VITALS: BP 153/75; PULSE 69; RESP 13; O2SAT 96
[2023-07-27 09:56] VITALS: BP 145/76; PULSE 68; RESP 12; O2SAT 95
== END 2023-07-27 10:04 | disposition home or self-care (01) ==
LOC: CATH 06:46
PROVIDERS: ATTEND Student in an Organized Health Care Education/Training Program
DX: I25.10 Atherosclerotic heart disease of native coronary artery without angina pectoris (principal); I70.0 Atherosclerosis of aorta; I50.9 Heart failure, unspecified; I48.91 Unspecified atrial fibrillation; J44.9 Chronic obstructive pulmonary disease, unspecified; Z79.82 Long term (current) use of aspirin; Z79.899 Other long term (current) drug therapy; Z95.4 Presence of other heart-valve replacement; Z95.5 Presence of coronary angioplasty implant and graft; Z98.890 Other specified postprocedural states; Z88.1 Allergy status to other antibiotic agents; Z83.3 Family history of diabetes mellitus; Z82.49 Family history of ischemic heart disease and other diseases of the circulatory system; Z80.3 Family history of malignant neoplasm of breast; Z80.1 Family history of malignant neoplasm of trachea, bronchus and lung; Z95.1 Presence of aortocoronary bypass graft
CPT/HCPCS: 36415; 80053; 85025; 85610; 85730; 93312; 93325; J2250; J3010; 99152

== ENCOUNTER → 2023-08-04 | Outpatient (CLI) | payer OTHER ==
[2023-08-04 15:03] LABS: Urine Bacteria None Seen /hpf (None Seen)
[2023-08-04 15:29] LABS: Urine Blood 3+ /uL (Negative); Urine Clarity Turbid (Clear); Urine Color Light-Orange (Yellow); Urine Mucus FEW (None Seen); Urine Protein, UAD TRACE (Negative); Urine Specific Gravity 1.016 (1.001-1.035); Urine Urobilinogen Normal (Negative); Urine WBC 30 /hpf (0 - 3); Urine pH 5.5 (5.0-9.0)
== END | disposition home or self-care (01) ==
LOC: LAB 15:00
PROVIDERS: ATTEND Internal Medicine
DX: N39.0 Urinary tract infection, site not specified (principal)
CPT/HCPCS: 81001; 87086

== ENCOUNTER 2023-09-06 15:40 | Inpatient (IN) | payer OTHER ==
[~2023-09-06] VITALS: Ht 170.2 cm; Wt 100.0 kg
[2023-09-06] MEDS: CARBIDOPA W LEVODOPA 25/100mg TABLET PO SCH (06:00)
[2023-09-06 16:40] VITALS: PULSE 70; RESP 17; O2SAT 94
[2023-09-06] MEDS: PIPERACILLIN-TAZOB 3.375GM 100 ML IV ONE (16:42)
[2023-09-06] MEDS: SODIUM CHLORIDE 0.9% 1,000 ML IV ONE (16:43)
[2023-09-06 17:10] LABS: Hematocrit 41.8 % (41.0-53.0); Hemoglobin 14.4 g/dL (13.5-17.5); Mean Corpuscular Hemoglobin 30.7 pg (28.0-32.0); Mean Corpuscular Hgb Conc. 34.5 g/dL (32.0-36.0); Mean Corpuscular Volume 89.1 fL (80.0-100.0); Red Blood Cells 4.69 10^6/uL (4.5-5.90); White Blood Cell 3.9 10^3/uL (4.4-10.8)
[2023-09-06 17:19] LABS: Albumin 4.2 g/dL (3.2-4.8); Alkaline Phosphatase 60 U/L (46-116); Anion Gap 8 (5-15); Aspartate Aminotransferase 15 U/L (13-40); BUN/Creatinine Ratio 16.5 (10.0-20.0); Bilirubin, Total 1.3 mg/dL (0.2-1.0); Blood Urea Nitrogen 13 mg/dL (9-23); Calcium 10.1 mg/dL (8.7-10.4); Carbon Dioxide 25 mmol/L (20-30); Chloride 107 mmol/L (98-107); Glucose 111 mg/dL (74-106); Potassium 4.2 mmol/L (3.5-5.1); Sodium 140 mmol/L (136-145); Total Protein 7.1 g/dL (5.7-8.2)
[2023-09-06 17:24] LABS: Alanine Aminotransferase < 9 U/L (7-40)
[2023-09-06 17:31] LABS: Basophils % (manual) 0 (0.0-2.0); Blast Cells 0; Metamyelocytes % 0; Myelocytes % 0; Promyelocytes % 0; Reactive Lymphocytes 0
[2023-09-06 18:08] LABS: Urine Bacteria None Seen /hpf (None Seen)
[2023-09-06 18:25] LABS: Urine Blood 2+ /uL (Negative); Urine Clarity Clear (Clear); Urine Color Light-Yellow (Yellow); Urine Mucus FEW (None Seen); Urine Protein, UAD Negative (Negative); Urine Specific Gravity 1.011 (1.001-1.035); Urine Urobilinogen Normal (Negative); Urine WBC 2 /hpf (0 - 3)
[2023-09-06 18:50] LABS: Band Neutrophils % (manual) 2; Eosinophils % (manual) 1 (0-7); Lymphocytes % (manual) 25 (10.0-50.0); Monocytes % (manual) 13 (0-12); Platelet Estimate Decreased
[2023-09-06] MEDS ORDERED: ACETAMINOPHEN 325 MG TAB PO PRN (19:00)
[2023-09-06] MEDS ORDERED: NITROGLYCERIN 0.4 MG SL TAB SL PRN (19:00)
[2023-09-06 19:30] VITALS: PULSE 68; RESP 15; O2SAT 94
[2023-09-06 19:48] LABS: LDL Cholesterol 84 mg/dL (< 100); Triglycerides 70 mg/dL (< 150)
[2023-09-06 19:50] LABS: Cholesterol 131 mg/dL (< 200); HDL Cholesterol 39 mg/dL (40-59)
[2023-09-06 21:14] LABS: Amphetamine Screen, Urine Neg (NEGATIVE); Barbiturate Scree,Urine Neg (NEGATIVE)
[2023-09-06 21:15] LABS: Benzodiazephine Screen, Urine Neg (NEGATIVE); Cannabinoid Screen, Urine Neg (NEGATIVE); Cocaine Screen, Urine Neg (NEGATIVE); Opiate Scree,Urine Neg (NEGATIVE); Phencyclidine Screen, Urine Neg (NEGATIVE)
[2023-09-06] MEDS: SODIUM CHLORIDE 0.9% 1,000 ML IV SCH (21:17)
[2023-09-06] MEDS: PREGABALIN CAPSULE 75 MG CAP PO SCH (22:00)
[2023-09-06] MEDS ORDERED: CARBIDOPA LEVODOPA PO SCH (22:00)
[2023-09-06] MEDS: ASPirin-EC 81 mg tab PO SCH (22:00)
[2023-09-06] MEDS: ATORVASTATIN 20 MG TAB PO SCH (22:00)
[2023-09-07] VITALS (9 sets, daily range): BP systolic 118–158; BP diastolic 53–88; PULSE 56–70; RESP 16–20; TEMP 90.5–98.7; O2SAT 94–97
[2023-09-07 06:09] LABS: Hematocrit 40.4 % (41.0-53.0); Hemoglobin 13.9 g/dL (13.5-17.5); Mean Corpuscular Hemoglobin 30.4 pg (28.0-32.0); Mean Corpuscular Hgb Conc. 34.5 g/dL (32.0-36.0); Mean Corpuscular Volume 88.1 fL (80.0-100.0); Red Blood Cells 4.58 10^6/uL (4.5-5.90); Red Cell Distribution Width 14.2 % (11.8-14.3); White Blood Cell 2.8 10^3/uL (4.4-10.8)
[2023-09-07 06:17] LABS: Basophils % (manual) 0 (0.0-2.0); Blast Cells 0; Metamyelocytes % 0; Myelocytes % 0; Promyelocytes % 0; Reactive Lymphocytes 0
[2023-09-07 06:19] LABS: Alanine Aminotransferase 12 U/L (7-40); Alkaline Phosphatase 57 U/L (46-116); Anion Gap 7 (5-15); Aspartate Aminotransferase 14 U/L (13-40); BUN/Creatinine Ratio 19.4 (10.0-20.0); Bilirubin, Total 1.2 mg/dL (0.2-1.0); Blood Urea Nitrogen 14 mg/dL (9-23); Calcium 9.8 mg/dL (8.7-10.4); Carbon Dioxide 25 mmol/L (20-30); Chloride 110 mmol/L (98-107); Glucose 110 mg/dL (74-106); Potassium 3.9 mmol/L (3.5-5.1); Sodium 142 mmol/L (136-145); Total Protein 6.7 g/dL (5.7-8.2)
[2023-09-07 07:14] LABS: Band Neutrophils % (manual) 2; Eosinophils % (manual) 3 (0-7); Lymphocytes % (manual) 34 (10.0-50.0); Monocytes % (manual) 25 (0-12); Platelet Estimate Decreased
[2023-09-07 07:15] LABS: RBC Morphology Normal
[2023-09-07] MEDS: CLOPIDOGREL BISULFATE 75 MG TAB PO SCH (10:20)
[2023-09-07] MEDS: PROPRANOLOL HCL 20 MG TAB PO SCH (10:21)
[2023-09-07] MEDS: BACLOFEN 10 MG TAB PO SCH (10:22)
[2023-09-07] MEDS: HYDROcodone-ACET 5/325MG TAB PO PRN (12:22)
[2023-09-07 12:31] LABS: INR 2.06 (0.9-1.15); Partial Thromboplastin Time 32.2 SEC (24.5-34.5); Prothrombin Time 20.7 sec (9.3-11.8)
[2023-09-07] MEDS ORDERED: MORPHINE SULFATE INJ 2 MG/ml SYRG IV PRN (15:30)
[2023-09-07] MEDS: MORPHINE SULFATE INJ 2 MG/ml SYRG IV PRN ×2 (16:11)
[2023-09-07] MEDS: hydrALAZINE HCL 20 MG/ML VL IV PRN (18:30)
[2023-09-07] MEDS: TAMSULOSIN HYDROCHLORIDE 0.4 MG CAP PO SCH (18:30)
[2023-09-07] MEDS: cefTRIAXone 1GM/50ML D5W 50 ML IV ONE (18:30)
[2023-09-07] MEDS: WARFARIN SODIUM 2 MG TAB PO ONE (18:34)
[2023-09-08] VITALS (7 sets, daily range): BP systolic 126–159; BP diastolic 71–85; PULSE 61–70; RESP 16–18; TEMP 36.9; O2SAT 94–98
[2023-09-08 07:26] LABS: Hematocrit 39.5 % (41.0-53.0); Hemoglobin 13.7 g/dL (13.5-17.5); Mean Corpuscular Hemoglobin 30.5 pg (28.0-32.0); Mean Corpuscular Hgb Conc. 34.8 g/dL (32.0-36.0); Mean Corpuscular Volume 87.9 fL (80.0-100.0); Red Cell Distribution Width 14.2 % (11.8-14.3); White Blood Cell 2.1 10^3/uL (4.4-10.8)
[2023-09-08 07:29] LABS: Band Neutrophils % (manual) 0; Basophils % (manual) 0 (0.0-2.0); Blast Cells 0; Eosinophils % (manual) 0 (0-7); Metamyelocytes % 0; Myelocytes % 0; Promyelocytes % 0; Reactive Lymphocytes 0
[2023-09-08 07:39] LABS: INR 2.3 (0.9-1.15); Partial Thromboplastin Time 32.4 SEC (24.5-34.5); Prothrombin Time 22.9 sec (9.3-11.8)
[2023-09-08 07:49] LABS: Alanine Aminotransferase < 9 U/L (7-40); Alkaline Phosphatase 55 U/L (46-116); Anion Gap 7 (5-15); Aspartate Aminotransferase 15 U/L (13-40); BUN/Creatinine Ratio 19.4 (10.0-20.0); Blood Urea Nitrogen 13 mg/dL (9-23); Carbon Dioxide 25 mmol/L (20-30); Chloride 108 mmol/L (98-107); Glucose 122 mg/dL (74-106); Potassium 3.6 mmol/L (3.5-5.1); Sodium 140 mmol/L (136-145); Total Protein 6.7 g/dL (5.7-8.2)
[2023-09-08 08:11] LABS: Lymphocytes % (manual) 43 (10.0-50.0); Monocytes % (manual) 31 (0-12); Platelet Estimate Decreased; RBC Morphology Normal
[2023-09-08] MEDS: cefTRIAXone 1GM/50ML D5W 50 ML IV SCH (09:54)
[2023-09-08] MEDS ORDERED: AMOX500T86 PO (12:49)
[2023-09-08] MEDS ORDERED: NIFEdipine ER 30 MG TAB PO ONE (13:15)
[2023-09-08] MEDS ORDERED: WARFARIN SODIUM 2.5 MG TAB PO ONE (17:00)
[2023-09-08] MEDS ORDERED: ATORVASTATIN 20 MG TAB PO SCH (22:00)
[2023-09-09] MEDS ORDERED: NIFEdipine ER 30 MG TAB PO SCH (10:00)
== END 2023-09-08 16:27 | disposition home or self-care (01) | DRG 71 ==
LOC: EDBD 15:40 → ER 15:40 → TELE 19:00 → TELE-WESTW 22:22
PROVIDERS: ADMIT Internal Medicine; ATTEND Emergency Medicine
DX: G93.41 Metabolic encephalopathy (principal); N39.0 Urinary tract infection, site not specified; I48.91 Unspecified atrial fibrillation; F02.80 Dementia in other diseases classified elsewhere, unspecified severity, without behavioral disturbance, psychotic disturbance, mood disturbance, and anxiety; G20.A1 Parkinson's disease without dyskinesia, without mention of fluctuations; E78.5 Hyperlipidemia, unspecified; E66.01 Morbid (severe) obesity due to excess calories; D69.6 Thrombocytopenia, unspecified; Z68.34 Body mass index [BMI] 34.0-34.9, adult; N40.0 Benign prostatic hyperplasia without lower urinary tract symptoms; G89.29 Other chronic pain; M54.9 Dorsalgia, unspecified; D70.9 Neutropenia, unspecified; J44.9 Chronic obstructive pulmonary disease, unspecified; I49.5 Sick sinus syndrome; N18.9 Chronic kidney disease, unspecified; I25.10 Atherosclerotic heart disease of native coronary artery without angina pectoris; Z96.651 Presence of right artificial knee joint; I12.9 Hypertensive chronic kidney disease with stage 1 through stage 4 chronic kidney disease, or unspecified chronic kidney disease; Z79.01 Long term (current) use of anticoagulants; Z95.1 Presence of aortocoronary bypass graft; Z88.1 Allergy status to other antibiotic agents; Z88.2 Allergy status to sulfonamides; Z79.899 Other long term (current) drug therapy; Z79.82 Long term (current) use of aspirin; Z95.2 Presence of prosthetic heart valve; Z80.3 Family history of malignant neoplasm of breast; Z80.1 Family history of malignant neoplasm of trachea, bronchus and lung; Z82.49 Family history of ischemic heart disease and other diseases of the circulatory system; Z83.3 Family history of diabetes mellitus
CPT/HCPCS: 36415; 70450; 71045; 80053; 80061; 80307; 81001; 82248; 82306; 82607; 83036; 83605; 83735; 84443; 84484; 85007; 85027; 85610; 85730; 87040; 87086; 93005; 93886; 96365; 97163; G0378; J2543

== ENCOUNTER 2023-09-17 10:08 | Inpatient (IN) | payer OTHER ==
[~2023-09-17] VITALS: Ht 172.7 cm; Wt 100.0 kg
[~2023-09-17 10:08] MED LIST changes: +AMOX500T86 PO; -CARB-118 PO; -CLOB0.055 TOP; -KETO2SHA5 EX; -PROP60CA34 PO
[2023-09-17] MEDS: SODIUM CHLORIDE 0.9% 500 ML IV ONE (10:33)
[2023-09-17] MEDS: SODIUM CHLORIDE 0.9% 1,000 ML IV ONE (10:56)
[2023-09-17 11:29] LABS: Basophils # (auto) 0.1 10 ^3/uL (0-0.2); Basophils % (auto) 1.1 % (0.0-2.0); Eosinophils # (auto) 0 10 ^3/uL (0-0.8); Eosinophils % (auto) 0.3 % (0.0-7.0); Hematocrit 41.2 % (41.0-53.0); Hemoglobin 14.2 g/dL (13.5-17.5); Lymphocytes # (auto) 0.7 10 ^3/uL (0.4-5.4); Lymphocytes % (auto) 12.4 % (10.0-50.0); Mean Corpuscular Hgb Conc. 34.4 g/dL (32.0-36.0); Mean Corpuscular Volume 87.2 fL (80.0-100.0); Monocytes # (auto) 0.4 10 ^3/uL (0-1.3); Monocytes % (auto) 6.4 % (0.0-12.0); Neutrophils # (auto) 4.8 10 ^3/uL (1.6-8.6); Neutrophils % (auto) 79.8 % (37.0-80.0); Nucleated Red Blood Cells % 0.1 %; Red Blood Cells 4.73 10^6/uL (4.5-5.90); Red Cell Distribution Width 13.5 % (11.8-14.3)
[2023-09-17 11:45] LABS: INR 2.02 (0.9-1.15); Partial Thromboplastin Time 32.7 SEC (24.5-34.5); Prothrombin Time 20.3 sec (9.3-11.8)
[2023-09-17 11:48] LABS: Albumin 4.4 g/dL (3.2-4.8); Alkaline Phosphatase 65 U/L (46-116); Anion Gap 4 (5-15); Aspartate Aminotransferase 15 U/L (13-40); BUN/Creatinine Ratio 9.9 (10.0-20.0); Blood Urea Nitrogen 7 mg/dL (9-23); Carbon Dioxide 28 mmol/L (20-30); Chloride 104 mmol/L (98-107); Glucose 131 mg/dL (74-106); Magnesium 2.2 mg/dL (1.6-2.6); Potassium 4.3 mmol/L (3.5-5.1); Sodium 136 mmol/L (136-145)
[2023-09-17 11:49] LABS: Bilirubin, Total 0.8 mg/dL (0.2-1.0); Total Protein 7.3 g/dL (5.7-8.2)
[2023-09-17 11:52] LABS: Alanine Aminotransferase < 9 U/L (7-40)
[2023-09-17] MEDS: ONDANSETRON HCL 4 MG/2 ML VIAL IV ONE (13:10)
[2023-09-17 16:09] VITALS: PULSE 66; RESP 16; O2SAT 95
[2023-09-17] MEDS ORDERED: MORPHINE SULFATE INJ 2 MG/ml SYRG IV PRN (16:15)
[2023-09-17] MEDS ORDERED: NITROGLYCERIN 0.4 MG SL TAB SL PRN (16:15)
[2023-09-17] MEDS: SODIUM CHLORIDE 0.9% 1,000 ML IV SCH (16:26)
[2023-09-17 17:10] LABS: Urine Bacteria None Seen /hpf (None Seen)
[2023-09-17 17:42] LABS: Urine Blood 1+ /uL (Negative); Urine Clarity Clear (Clear); Urine Color Yellow (Yellow); Urine Mucus FEW (None Seen); Urine Protein, UAD TRACE (Negative); Urine Specific Gravity 1.018 (1.001-1.035); Urine Urobilinogen Normal (Negative); Urine WBC 1 /hpf (0 - 3); Urine pH 6.5 (5.0-9.0)
[2023-09-17] MEDS: CARBIDOPA LEVODOPA PO SCH (18:00)
[2023-09-17] MEDS: TAMSULOSIN HYDROCHLORIDE 0.4 MG CAP PO SCH (18:21)
[2023-09-17] MEDS: ACETAMINOPHEN 325 MG TAB PO PRN (18:21)
[2023-09-17] MEDS: WARFARIN SODIUM 2 MG TAB PO ONE (18:58)
[2023-09-17] MEDS ORDERED: WARFARIN SODIUM 2 MG TAB PO ONE ×2 (19:00)
[2023-09-17 19:30] VITALS: PULSE 85; RESP 18; O2SAT 95
[2023-09-17] MEDS: ASPirin-EC 81 mg tab PO SCH (22:00)
[2023-09-17] MEDS: PREGABALIN CAPSULE 75 MG CAP PO SCH (22:00)
[2023-09-18] VITALS (10 sets, daily range): BP systolic 123–154; BP diastolic 56–92; PULSE 55–74; RESP 17–22; TEMP 97.6–98.7; O2SAT 90–96
[2023-09-18] MEDS: HYDROcodone-ACET 5/325MG TAB PO PRN (02:30)
[2023-09-18 06:50] LABS: INR 2.47 (0.9-1.15); Prothrombin Time 24.5 sec (9.3-11.8)
[2023-09-18 07:18] LABS: Alkaline Phosphatase 60 U/L (46-116); Anion Gap 4 (5-15); Aspartate Aminotransferase 13 U/L (13-40); Bilirubin, Total 0.9 mg/dL (0.2-1.0); Blood Urea Nitrogen 6 mg/dL (9-23); Calcium 9.8 mg/dL (8.7-10.4); Carbon Dioxide 27 mmol/L (20-30); Chloride 106 mmol/L (98-107); Sodium 137 mmol/L (136-145)
[2023-09-18 07:19] LABS: Total Protein 6.6 g/dL (5.7-8.2)
[2023-09-18 07:37] LABS: Alanine Aminotransferase < 9 U/L (7-40)
[2023-09-18 07:43] LABS: Glucose 102 mg/dL (74-106)
[2023-09-18 07:54] LABS: Basophils # (auto) 0 10 ^3/uL (0-0.2); Basophils % (auto) 0.7 % (0.0-2.0); Eosinophils # (auto) 0 10 ^3/uL (0-0.8); Eosinophils % (auto) 0.4 % (0.0-7.0); Hematocrit 38.4 % (41.0-53.0); Hemoglobin 13.4 g/dL (13.5-17.5); Lymphocytes # (auto) 1.1 10 ^3/uL (0.4-5.4); Lymphocytes % (auto) 15.6 % (10.0-50.0); Mean Corpuscular Hemoglobin 30.3 pg (28.0-32.0); Mean Corpuscular Hgb Conc. 34.9 g/dL (32.0-36.0); Mean Corpuscular Volume 86.8 fL (80.0-100.0); Monocytes # (auto) 0.5 10 ^3/uL (0-1.3); Monocytes % (auto) 7.7 % (0.0-12.0); Neutrophils # (auto) 5.1 10 ^3/uL (1.6-8.6); Neutrophils % (auto) 75.6 % (37.0-80.0); Nucleated Red Blood Cells % 0.2 %; Red Blood Cells 4.43 10^6/uL (4.5-5.90); Red Cell Distribution Width 13.9 % (11.8-14.3); White Blood Cell 6.8 10^3/uL (4.4-10.8)
[2023-09-18] MEDS ORDERED: ENOXAPARIN SOD 40 MG/0.4 ML SYRINGE SC SCH (10:00)
[2023-09-18] MEDS ORDERED: DULO60CA41 PO (10:46)
[2023-09-18] MEDS ORDERED: CARB1CAP3 PO (10:46)
[2023-09-18] MEDS: CLOPIDOGREL BISULFATE 75 MG TAB PO SCH (11:17)
[2023-09-18] MEDS: BACLOFEN 10 MG TAB PO SCH (11:17)
[2023-09-18] MEDS: PRAVASTATIN SODIUM 20 MG TAB PO SCH (11:17)
[2023-09-18] MEDS ORDERED: FUROSEMIDE 40 MG/4 ML VIAL IV ONE (14:30)
[2023-09-18] MEDS: DULoxetine HCL 30 MG CAP PO SCH (16:13)
[2023-09-18] MEDS: FUROSEMIDE 40 MG/4 ML VIAL IV ONE (16:13)
[2023-09-18] MEDS: WARFARIN SODIUM 2 MG TAB PO ONE (18:27)
[2023-09-19] VITALS (8 sets, daily range): BP systolic 128–167; BP diastolic 65–88; PULSE 64–78; RESP 17–20; TEMP 96.6–97.9; O2SAT 93–97
[2023-09-19 06:14] LABS: Basophils # (auto) 0.1 10 ^3/uL (0-0.2); Basophils % (auto) 0.9 % (0.0-2.0); Eosinophils # (auto) 0 10 ^3/uL (0-0.8); Eosinophils % (auto) 0.4 % (0.0-7.0); Hematocrit 39.6 % (41.0-53.0); Hemoglobin 13.9 g/dL (13.5-17.5); Lymphocytes # (auto) 1.1 10 ^3/uL (0.4-5.4); Lymphocytes % (auto) 19.4 % (10.0-50.0); Mean Corpuscular Hemoglobin 30.4 pg (28.0-32.0); Mean Corpuscular Hgb Conc. 35.2 g/dL (32.0-36.0); Mean Corpuscular Volume 86.4 fL (80.0-100.0); Monocytes # (auto) 0.5 10 ^3/uL (0-1.3); Monocytes % (auto) 9.5 % (0.0-12.0); Neutrophils % (auto) 69.8 % (37.0-80.0); Red Blood Cells 4.58 10^6/uL (4.5-5.90); Red Cell Distribution Width 13.6 % (11.8-14.3); White Blood Cell 5.7 10^3/uL (4.4-10.8)
[2023-09-19 06:37] LABS: INR 2.9 (0.9-1.15); Prothrombin Time 28.4 sec (9.3-11.8)
[2023-09-19 06:40] LABS: Albumin 4.1 g/dL (3.2-4.8); Alkaline Phosphatase 61 U/L (46-116); Anion Gap 5 (5-15); Aspartate Aminotransferase 17 U/L (13-40); BUN/Creatinine Ratio 10.9 (10.0-20.0); Blood Urea Nitrogen 7 mg/dL (9-23); Calcium 9.9 mg/dL (8.7-10.4); Carbon Dioxide 28 mmol/L (20-30); Chloride 102 mmol/L (98-107); Glucose 105 mg/dL (74-106); Potassium 3.7 mmol/L (3.5-5.1); Sodium 135 mmol/L (136-145)
[2023-09-19 06:41] LABS: Bilirubin, Total 0.9 mg/dL (0.2-1.0); Total Protein 6.9 g/dL (5.7-8.2)
[2023-09-19 06:48] LABS: Alanine Aminotransferase < 9 U/L (7-40)
[2023-09-19] MEDS: hydrALAZINE HCL 20 MG/ML VL IV PRN (09:12)
[2023-09-19] MEDS ORDERED: ONDANSETRON HCL 4 MG/2 ML VIAL IV PRN (14:30)
[2023-09-19] MEDS: WARFARIN SODIUM 2 MG TAB PO ONE (18:17)
[2023-09-20] VITALS (8 sets, daily range): BP systolic 119–160; BP diastolic 74–90; PULSE 69–79; RESP 16–20; TEMP 97.4–98.5; O2SAT 95–96
[2023-09-20 06:10] LABS: Basophils # (auto) 0.1 10 ^3/uL (0-0.2); Basophils % (auto) 0.9 % (0.0-2.0); Eosinophils # (auto) 0 10 ^3/uL (0-0.8); Eosinophils % (auto) 0.7 % (0.0-7.0); Hematocrit 40.9 % (41.0-53.0); Hemoglobin 14.2 g/dL (13.5-17.5); Lymphocytes # (auto) 1.2 10 ^3/uL (0.4-5.4); Lymphocytes % (auto) 20.6 % (10.0-50.0); Mean Corpuscular Hemoglobin 29.9 pg (28.0-32.0); Mean Corpuscular Hgb Conc. 34.8 g/dL (32.0-36.0); Mean Corpuscular Volume 85.9 fL (80.0-100.0); Monocytes # (auto) 0.7 10 ^3/uL (0-1.3); Monocytes % (auto) 11.2 % (0.0-12.0); Neutrophils % (auto) 66.6 % (37.0-80.0); Nucleated Red Blood Cells % 0.3 %; Red Blood Cells 4.76 10^6/uL (4.5-5.90); Red Cell Distribution Width 13.9 % (11.8-14.3)
[2023-09-20 06:35] LABS: Alanine Aminotransferase < 9 U/L (7-40); Albumin 4.1 g/dL (3.2-4.8); Alkaline Phosphatase 61 U/L (46-116); Anion Gap 8 (5-15); Aspartate Aminotransferase 18 U/L (13-40); BUN/Creatinine Ratio 13.6 (10.0-20.0); Bilirubin, Total 1.1 mg/dL (0.2-1.0); Blood Urea Nitrogen 8 mg/dL (9-23); Calcium 9.9 mg/dL (8.7-10.4); Carbon Dioxide 24 mmol/L (20-30); Chloride 102 mmol/L (98-107); Glucose 100 mg/dL (74-106); Potassium 3.7 mmol/L (3.5-5.1); Sodium 134 mmol/L (136-145); Total Protein 6.8 g/dL (5.7-8.2)
[2023-09-20] MEDS: amLODIPine BESYLATE 5 MG TAB PO SCH (09:32)
[2023-09-20 17:57] LABS: INR 3.42 (0.9-1.15); Partial Thromboplastin Time 37.9 SEC (24.5-34.5); Prothrombin Time 33.1 sec (9.3-11.8)
[2023-09-20] MEDS: WARFARIN SODIUM 2 MG TAB PO ONE (18:03)
[2023-09-21] VITALS (7 sets, daily range): BP systolic 122–141; BP diastolic 51–81; PULSE 65–79; RESP 16–20; TEMP 36.5; O2SAT 93–97
[2023-09-21 07:53] LABS: Albumin 4.1 g/dL (3.2-4.8); Alkaline Phosphatase 61 U/L (46-116); Anion Gap 7 (5-15); Aspartate Aminotransferase 18 U/L (13-40); BUN/Creatinine Ratio 14.3 (10.0-20.0); Bilirubin, Total 1.1 mg/dL (0.2-1.0); Blood Urea Nitrogen 8 mg/dL (9-23); Calcium 9.6 mg/dL (8.5-10.1); Carbon Dioxide 26 mmol/L (20-30); Chloride 102 mmol/L (98-107); Glucose 88 mg/dL (74-106); Potassium 3.4 mmol/L (3.5-5.1); Sodium 135 mmol/L (136-145); Total Protein 6.5 g/dL (5.7-8.2)
[2023-09-21 07:58] LABS: Alanine Aminotransferase < 9 U/L (7-40)
[2023-09-21] MEDS: POTASSIUM CHL 20 Meq TABLET PO ONE (09:48)
[2023-09-21] MEDS: CYANOCOBALAMIN (B-12) 1000 MCG/1 ML VIAL IM ONE (14:43)
[2023-09-21] MEDS ORDERED: [UNRECOGNIZED DRUG - CODE] PO (16:10)
[2023-09-21 16:16] LABS: Basophils # (auto) 0.1 10 ^3/uL (0-0.2); Basophils % (auto) 1.8 % (0.0-2.0); Eosinophils # (auto) 0.1 10 ^3/uL (0-0.8); Eosinophils % (auto) 1.7 % (0.0-7.0); Hematocrit 40.1 % (41.0-53.0); Hemoglobin 14.1 g/dL (13.5-17.5); Lymphocytes # (auto) 1.2 10 ^3/uL (0.4-5.4); Lymphocytes % (auto) 24.3 % (10.0-50.0); Mean Corpuscular Hemoglobin 30.5 pg (28.0-32.0); Mean Corpuscular Hgb Conc. 35.2 g/dL (32.0-36.0); Mean Corpuscular Volume 86.5 fL (80.0-100.0); Monocytes # (auto) 0.7 10 ^3/uL (0-1.3); Neutrophils # (auto) 2.8 10 ^3/uL (1.6-8.6); Neutrophils % (auto) 57.2 % (37.0-80.0); Nucleated Red Blood Cells % 0.4 %; Red Blood Cells 4.64 10^6/uL (4.5-5.90); Red Cell Distribution Width 14.1 % (11.8-14.3)
[2023-09-21 16:37] LABS: INR 3.25 (0.9-1.15); Partial Thromboplastin Time 38.1 SEC (24.5-34.5); Prothrombin Time 31.6 sec (9.3-11.8)
[2023-09-22] MEDS ORDERED: CYANOCOBALAMIN 500 MCG TAB PO SCH (10:00)
== END 2023-09-21 16:45 | disposition home health service (06) | DRG 56 ==
LOC: EDBD 10:08 → ER 10:08 → TELE 16:11 → TELE-WESTW 23:14
PROVIDERS: ADMIT Internal Medicine; ATTEND Internal Medicine
DX: G20.A1 Parkinson's disease without dyskinesia, without mention of fluctuations (principal); I50.43 Acute on chronic combined systolic (congestive) and diastolic (congestive) heart failure; N39.0 Urinary tract infection, site not specified; C83.00 Small cell B-cell lymphoma, unspecified site; I13.0 Hypertensive heart and chronic kidney disease with heart failure and stage 1 through stage 4 chronic kidney disease, or unspecified chronic kidney disease; E66.01 Morbid (severe) obesity due to excess calories; N40.0 Benign prostatic hyperplasia without lower urinary tract symptoms; I48.0 Paroxysmal atrial fibrillation; E78.5 Hyperlipidemia, unspecified; I71.40 Abdominal aortic aneurysm, without rupture, unspecified; G89.29 Other chronic pain; N18.9 Chronic kidney disease, unspecified; G62.9 Polyneuropathy, unspecified; I25.10 Atherosclerotic heart disease of native coronary artery without angina pectoris; J44.89 Other specified chronic obstructive pulmonary disease; Z95.2 Presence of prosthetic heart valve; Z68.34 Body mass index [BMI] 34.0-34.9, adult; Z88.1 Allergy status to other antibiotic agents; Z83.3 Family history of diabetes mellitus; Z82.49 Family history of ischemic heart disease and other diseases of the circulatory system; Z85.6 Personal history of leukemia; Z87.442 Personal history of urinary calculi
CPT/HCPCS: 36415; 71045; 80053; 81001; 82607; 82962; 83735; 83880; 84443; 84484; 85025; 85610; 85730; 87081; 93005; 97110; 97116; 97163; 97530; G0378; J2405

== ENCOUNTER → 2023-10-13 | Outpatient (CLI) | payer OTHER ==
[~2023-10-13] MED LIST changes: -AMOX500T86 PO; +DULO60CA41 PO; +[UNRECOGNIZED DRUG - CODE] PO
[2023-10-13 14:11] LABS: Basophils # (auto) 0.1 10 ^3/uL (0-0.2); Basophils % (auto) 2.4 % (0.0-2.0); Eosinophils # (auto) 0.1 10 ^3/uL (0-0.8); Eosinophils % (auto) 2.4 % (0.0-7.0); Hematocrit 39.9 % (41.0-53.0); Lymphocytes % (auto) 31.9 % (10.0-50.0); Mean Corpuscular Hemoglobin 30.5 pg (28.0-32.0); Monocytes # (auto) 0.4 10 ^3/uL (0-1.3); Monocytes % (auto) 14.2 % (0.0-12.0); Neutrophils # (auto) 1.5 10 ^3/uL (1.6-8.6); Neutrophils % (auto) 49.1 % (37.0-80.0); Nucleated Red Blood Cells % 0.1 %; Red Blood Cells 4.59 10^6/uL (4.5-5.90); Red Cell Distribution Width 14.5 % (11.8-14.3); White Blood Cell 3.1 10^3/uL (4.4-10.8)
[2023-10-13 14:34] LABS: Anion Gap 7 (5-15); Carbon Dioxide 26 mmol/L (20-30); Chloride 108 mmol/L (98-107); Sodium 141 mmol/L (136-145)
[2023-10-13 14:35] LABS: Calcium 9.8 mg/dL (8.5-10.1)
[2023-10-13 14:40] LABS: BUN/Creatinine Ratio 18.5 (10.0-20.0); Blood Urea Nitrogen 15 mg/dL (9-23); Glucose 138 mg/dL (74-106)
== END | disposition home or self-care (01) ==
LOC: LAB 13:52
PROVIDERS: ATTEND Internal Medicine
DX: N39.0 Urinary tract infection, site not specified (principal); E87.6 Hypokalemia; R53.1 Weakness; D69.6 Thrombocytopenia, unspecified; G62.9 Polyneuropathy, unspecified
CPT/HCPCS: 36415; 80048; 85025; 87086

== ENCOUNTER → 2024-01-18 | Outpatient (CLI) | payer OTHER ==
[~2024-01-18] MED LIST changes: -TAMS0.4C36 PO; +TAMS0.4C39 PO
[2024-01-18 11:32] LABS: Basophils # (auto) 0 10 ^3/uL (0-0.2); Basophils % (auto) 1.4 % (0.0-2.0); Eosinophils # (auto) 0.1 10 ^3/uL (0-0.8); Eosinophils % (auto) 2.2 % (0.0-7.0); Lymphocytes # (auto) 1.3 10 ^3/uL (0.4-5.4); Lymphocytes % (auto) 36.1 % (10.0-50.0); Mean Corpuscular Hemoglobin 30.9 pg (28.0-32.0); Mean Corpuscular Hgb Conc. 34.3 g/dL (32.0-36.0); Mean Corpuscular Volume 90.2 fL (80.0-100.0); Monocytes # (auto) 0.5 10 ^3/uL (0-1.3); Monocytes % (auto) 13.8 % (0.0-12.0); Neutrophils # (auto) 1.6 10 ^3/uL (1.6-8.6); Neutrophils % (auto) 46.5 % (37.0-80.0); Nucleated Red Blood Cells % 0.1 %; Platelet Count (auto) 111 10^3/uL (140-450); Red Blood Cells 4.54 10^6/uL (4.5-5.90); Red Cell Distribution Width 14.4 % (11.8-14.3); White Blood Cell 3.5 10^3/uL (4.4-10.8)
[2024-01-18 11:45] LABS: Albumin 4.4 g/dL (3.2-4.8); Alkaline Phosphatase 64 U/L (46-116); Anion Gap 6 (5-15); Aspartate Aminotransferase 9 U/L (13-40); BUN/Creatinine Ratio 17.3 (10.0-20.0); Blood Urea Nitrogen 14 mg/dL (9-23); Calcium 9.9 mg/dL (8.7-10.4); Carbon Dioxide 29 mmol/L (20-31); Chloride 107 mmol/L (98-107); Glucose 115 mg/dL (74-106); Potassium 4.3 mmol/L (3.5-5.1); Sodium 142 mmol/L (136-145)
[2024-01-18 11:46] LABS: Bilirubin, Total 0.8 mg/dL (0.2-1.0); Total Protein 6.9 g/dL (5.7-8.2)
[2024-01-18 11:47] LABS: Alanine Aminotransferase < 9 U/L (7-40)
== END | disposition home or self-care (01) ==
LOC: LAB 10:09
PROVIDERS: ATTEND Internal Medicine
DX: C85.90 Non-Hodgkin lymphoma, unspecified, unspecified site (principal); C83.00 Small cell B-cell lymphoma, unspecified site; D69.6 Thrombocytopenia, unspecified
CPT/HCPCS: 36415; 80053; 83615; 85025

== ENCOUNTER 2024-02-13 09:10 | Inpatient (IN) | payer OTHER ==
[~2024-02-13] VITALS: Ht 172.7 cm; Wt 91.3 kg
[2024-02-13 00:20] VITALS: PULSE 79; RESP 18; O2SAT 97
[2024-02-13 09:47] VITALS: RESP 16; O2SAT 97
--- NOTE | 2024-02-13 10:00 | ED.PDOC ---
General HPI Comments 78Y M with PMHx HTN, HLD, [place], [place] s/p CABG, CAD, UTI, and kidney stone presents to ED for chief complaint urinary symptoms. Pt states he has a new onset of dysuria, urinary retention, flank pain (7/10), fatigue, and nausea. Per pt's son, pt also has chronic hematuria. Pt last voided urine this morning but states it was a very small amount. Pt denies fever and chills. Pt is being f/u by urologist Dr. Clement who told them pt might have stone in the bladder. Per pt's son, pt gets UTI almost every 4 months and symptoms resolve with abx. Allergies include sulf abx and cipro. Chief Complaint: Urinary Time Seen by MD: 09:38 Primary Care Provider: RAFAEL Reviewed notes: Medications, Allergies Allergies: Coded Allergies: Ciprofloxacin (Verified Allergy, Mild, oral blisters and rash, 10/06/20) Sulfa Antibiotics (Verified Allergy, Unknown, 09/07/23) Home Meds Active Scripts Cobalamin (Adeno+Hydroxo B12) 2,500 Mcg Tab, 2500 MCG PO DAILY for 30 Days, #30 TAB 0 Refills Prov:WILLIE SILVERMAN RESIDENT 09/21/23 Warfarin Sodium (Warfarin Sodium) 4 Mg Tab, 1 TAB PO DAILY, #30 Prov:REFUGIO WIN Pharmacist 05/07/20 Reported Medications Duloxetine Hcl (Cymbalta) 60 Mg Cap, 60 MG PO DAILY, CAP 09/18/23 Carbidopa-Levodopa (Rytary 36.25-145 mg) 1 Cap Cap, 2 CAP PO QID for PARKINSONS, CAP 07/25/23 Pregabalin (Lyrica) 150 Mg Cap, 1 CAP PO BID for NEUROPATHY 07/25/23 Baclofen (Baclofen) 10 Mg Tab, 10 MG PO DAILY for BACK PAIN 06/22/22 Hydrocodone-Acetaminophen (Hydrocodone Bitartrate/AC 10-325 mg) 1 Tab Tab, 1 TAB PO DAILY for PAIN, TAB 06/22/22 Aspirin (Aspir-Low) 81 Mg Tab, 81 MG PO HS for CARDIAC 06/22/22 Tamsulosin Hcl (Tamsulosin Hcl) 0.4 Mg Cap, 0.4 MG PO QPM for PROSTATE 06/22/22 Clopidogrel Bisulfate (Plavix) 75 Mg Tab, 75 MG PO DAILY for BLOOD THINNER 10/06/20 Lovastatin (Lovastatin) 40 Mg Tab, 1 TAB PO DAILY for CHOLESTEROL 05/04/20 Information Source: Patient, Relative (Child) Mode of Arrival: Ambulatory Severity: Moderate Inability to void: Moderate Timing: Days Duration: Since onset Onset: Spontaneous Symptoms: Dysuria, Hematuria History of: UTI, Kidney stone Location: Other Penile discharge: None Modifying factors: None associated signs and symptoms: Dysuria, Hematuria, Inability to Void Vital Signs Vital Signs Date Time Temp Pulse Resp B/P (MAP) Pulse Ox O2 Delivery O2 Flow Rate FiO2 02/13/24 11:15 76 16 96 Room Air 02/13/24 11:15 98.0 130/55 (80) 98.0 02/13/24 09:47 0 21 Physical Exam General: Awake, alert and oriented. No acute distress. Skin: Skin in warm, dry and intact without rashes or lesions. Appropriate color for ethnicity. Nailbeds pink with no cyanosis. HEENT: The head is normocephalic and atraumatic. Conjunctivae are clear without exudates or hemorrhage. Sclera is non-icteric. EOM are intact. No signs of nystagmus. Eyelids are normal in appearance without swelling or lesions. The external ear and ear canal are non-tender and without swelling. Oral mucosa is pink and moist Neck: The neck is supple with normal range of motion. No JVD. Cardiac: Heart rate and rhythm are normal. No murmurs, gallops, or rubs are auscultated. Respiratory: No signs of respiratory distress. Lung sounds are clear in all lobes bilaterally without rales, ronchi, or wheezes. Abdominal: Abdomen is soft, non-tender without distention. There are no visible lesions or scars. Umbilicus is midline without herniation. Bowel sounds are present and normoactive in all four quadrants. No CVA tenderness Extremities: Upper and lower extremities are atraumatic in appearance without deformity or edema. Neurological: The patient is awake, alert and oriented to person, place, and time with normal speech. Speech is clear. There is no facial asymmetry. Psychiatric: Appropriate mood and affect. Good judgement and insight. No visual or auditory hallucinations. Review of Systems: REVIEW OF SYSTEMS: No fever, no chills, positive fatigue HEENT: No sore throat, earache, or congestion. No neck pain. Cardiac: No chest pain. No palpitations. Lungs: No shortness of breath or cough. GI: No nausea, no vomiting, no diarrhea, no constipation, no abdominal pain : Dysuria, hematuria, decreased urine output Musculoskeletal: No joint pain or swelling or edema. Skin: No rash or itching. Neuro: No headache, dizziness, weakness Past Medical History PAST MEDICAL HISTORY: CAD, Cancer, High Lipids, HTN, Kidney Stones, [place] Surgical History: CABG, PTCA Family History Family History: Family hx of DM, Family hx of heart johnnie Social History Smoker: Non-Smoker Alcohol: Denies ETOH Use Drugs: Denies Drug Use Lives In: Home Was a procedure done? Was a procedure done?: No Differential Diagnosis Kidney stone (Female): N/A Kidney stone (Male): Urinary obstruction, Urolithiasis Penile/Scrotal: UTI, Urinary Retention Urinary Problem (Male): UTI Urinary Problem (Female): N/A X-Ray, Labs, Meds, VS Vital Signs Date Time Temp Pulse Resp B/P (MAP) Pulse Ox O2 Delivery O2 Flow Rate FiO2 02/13/24 11:15 76 16 96 Room Air 02/13/24 11:15 98.0 76 16 130/55 (80) 96 98.0 02/13/24 09:47 16 97 Room Air* 0 21 02/13/24 09:18 99.4 81 18 119/63 (81) 95 Lab Test 02/13/24 09:34 02/13/24 09:15 Range/Units White Blood Count 2.7 L 4.4-10.8 10^3/uL Red Blood Count 4.47 L 4.5-5.90 10^6/uL Hemoglobin 13.8 13.5-17.5 g/dL Hematocrit 39.6 L 41.0-53.0 % Mean Corpuscular Volume 88.6 80.0-100.0 fL Mean Corpuscular Hemoglobin 31.0 28.0-32.0 pg Mean Corpuscular Hemoglobin Concent 34.9 32.0-36.0 g/dL Red Cell Distribution Width 14.2 11.8-14.3 % Platelet Count 88 L 140-450 10^3/uL Mean Platelet Volume 8.0 6.9-10.8 fL Neutrophils (%) (Auto) 37.0-80.0 % Lymphocytes (%) (Auto) 10.0-50.0 % Monocytes (%) (Auto) 0.0-12.0 % Basophils (%) (Auto) 0.0-2.0 % Neutrophils # (Auto) 1.6-8.6 10 ^3/uL Lymphocytes # (Auto) 0.4-5.4 10 ^3/uL Monocytes # (Auto) 0-1.3 10 ^3/uL Differential Total Cells Counted 100.0 100 Neutrophils % (Manual) 48 37.0-80.0 Band Neutrophils % (Manual) 0 Lymphocytes % (Manual) 46 10.0-50.0 Monocytes % (Manual) 6 0-12 Eosinophils % (Manual) 0 0-7 Basophils % (Manual) 0 0.0-2.0 Metamyelocytes % (manual) 0 Myelocytes % (Manual) 0 Promyelocytes % (Manual) 0 Blast Cells % (Manual) 0 Reactive Lymphocytes 0 Platelet Estimate Decreased Prothrombin Time 41.4 H 9.3-11.8 sec Prothrombin Time INR 4.36 *H 0.9-1.15 Activated Partial Thromboplast Time 39.9 H 24.5-34.5 SEC Sodium Level 137 136-145 mmol/L Potassium Level 4.1 3.5-5.1 mmol/L Chloride Level 104 98-107 mmol/L Carbon Dioxide Level 23 20-31 mmol/L Anion Gap 10 5-15 Blood Urea Nitrogen 25 H 9-23 mg/dL Creatinine 1.63 H 0.700-1.30 mg/dL Glomerular Filtration Rate Calc 42 >90 mL/min BUN/Creatinine Ratio 15.3 10.0-20.0 Serum Glucose 139 H 74-106 mg/dL Calcium Level 10.4 8.7-10.4 mg/dL Total Bilirubin 1.2 H 0.2-1.0 mg/dL Aspartate Amino Transferase (AST) 10 L 13-40 U/L Alanine Aminotransferase (ALT) < 9 7-40 U/L Alkaline Phosphatase 66 46-116 U/L Total Protein 7.0 5.7-8.2 g/dL Albumin 4.3 3.2-4.8 g/dL Urine Color Howell H Yellow Urine Clarity Ex.turbid Clear Urine pH 5.5 5.0-9.0 Urine Specific [place] 1.022 1.001-1.035 Urine Protein 3+ H Negative Urine Ketones Trace Negative Urine Blood 3+ H Negative /uL Urine Nitrite Negative Negative Urine Bilirubin Negative Negative Urine Urobilinogen 2 H Negative mg/dL Urine Leukocyte Esterase 3+ Negative /uL Urine RBC 137 0 - 3 /hpf Urine WBC 907 0 - 3 /hpf Urine WBC Clumps Present None Seen /hpf Urine Squamous Epithelial Cells None seen <5 /hpf Urine Bacteria None seen None Seen /hpf Urine Hyaline Casts Mod 0 - 2 /lpf Urine Granular Casts Many 0 /lpf Urine Mucus Few None Seen Urine Yeast (Budding) Occasional None Seen /hpf Urine Glucose Normal Normal mg/dL Current Medications Medications (Trade) Dose Ordered Sig/Desmond Route Start Time Stop Time Status Last Admin Sodium Chloride 1,000 ml @ 1,000 mls/hr Q1H ONCE IV 02/13/24 11:15 02/13/24 12:14 DC 02/13/24 11:29 [place] [id number] Ph: [phone] DIAGNOSTIC IMAGING Diagnostic Imaging Report : [id number] Signed PATIENT: QUENTIN SMITH ACCT: [id number] UNIT: [id number] : 1945 LOC: ER ROOM / BED: / AGE / SEX: 78 / M ADM STATUS: REG ER SERVICE 1100 ORDERING PHYSICIAN: PENNIE SKELTON MD PROCEDURE(s): ABPL - CT AB PEL WO CON-NO ORAL OR IV REASON: hematuria, difficulty urinating ORDER NUMBER(s): [id number], ACCESSION NUMBER(s): [id number] Exam: CT CT AB PEL WO CON-NO ORAL OR IV History: hematuria, difficulty urinating Comparison Study: CT CT AB PEL WO CON-NO ORAL OR IV on DOS: 06/17/22, [facility] on DOS: 01/18/22, CT ABD PELVIS WO CONTRAST on DOS: 09/21/20 Technique: Multidetector spiral CT of the abdomen and pelvis was performed from lung bases to pubic symphysis. Imaging was performed without IV contrast. Axial, coronal and sagittal multiplanar reformats were obtained from the axial data set by the technologist. Radiation dose : Abdomen/Pelvis: CTDIvol 18.18 mGy, DLP 1129.45 mGy*cm. Findings: Evaluation of solid organs is limited due to lack of intravenous contrast use. Lung Bases: No acute or significant lung base finding. Normal heart size. No pleural or pericardial effusion. Liver: The liver is normal in size. No focal lesions. Gallbladder and biliary Tree: Unremarkable Spleen: There are a few hypodensities in the spleen, largest measuring up to 17 mm. Spleen is enlarged Pancreas: The pancreas is grossly normal in appearance. Adrenal Glands: Unremarkable Kidneys: There is a calculus in the left renal pelvis measuring up to 8mm no significant left hydronephrosis. There is a right renal cyst measuring up to 30mm. Bladder: Grossly unremarkable for degree of distention. Bowel: The stomach is grossly normal in appearance. Small bowel and colon are normal in caliber and distribution. Normal appendix is visualized in the right lower quadrant without findings of appendicitis. Sigmoid diverticulosis is noted Ascites: Absent Lymphadenopathy: No mesenteric, retroperitoneal or periportal lymphadenopathy. Abdominal wall and Mesentery: Unremarkable. Vasculature: There is an infrarenal abdominal aortic aneurysm measuring up to 39mm. Calcified atherosclerotic disease is noted. Pelvic Organs: Coarse calcifications in the prostate Musculoskeletal: Scoliosis of the thoracolumbar spine with multilevel degenerative disease. IMPRESSION: 1. Calculus in the left renal pelvis measuring up to 8mm without significant hydronephrosis. Urology evaluation is recommended. 2. Few hypodensities in the spleen could be cyst or lymphangioma. 3. Right renal cyst. 4. Abdominal aneurysm measuring up to 39mm. This could be further evaluated with CTA of the abdomen pelvis. 5. Diverticulosis Radiation optimization: All CT scans at this facility use at least one of these dose optimization techniques: Automated exposure control mA and/or kV adjustment per patient size (includes targeted exams where dose is matched to clinical indication) or iterative reconstruction. HS:Y ATED BY: JERICHO VALENTE MD DICTATED DATE/TIME: 02/13/24 1148 SIGNED BY: JERICHO VALENTE MD SIGNED DATE/TIME: 02/13/24 1148 CC: Time of 1ST Reevaluation: 10:08 Reevaluation 1ST: Unchanged Patient Education/Counseling: Diagnosis, Treatment Family Education/Counseling: Diagnosis, Treatment Comments (Due to unavailability of ER rooms/beds, the patient was examined in the hallway to expedite care. The patient was offered the option to wait for a private ER room/bed to become available but opted to proceed with the hallway examination. ) Departure 1 Departure Time of Disposition: 12:19 Impression: Primary Impression: WILLARD (acute kidney injury) Additional Impressions: Hematuria Supratherapeutic INR Decreased urine output Abdominal aortic aneurysm (AAA) 3.0 cm to 5.5 cm in diameter in male Disposition: 02 SHORT TERM HOSPITAL Condition: Stable Comments 78 yo male presents with his son with reports general fatigue, decreased urine output since this morning, hematuria, dysuria. Workup revealed WILLARD. Patient initially stated he was only able to make a small amount of urine since this morning, bladder scan showed empty bladder. Patient was administered IV fluids. Workup revealed supratherapeutic INR, patient is on warfarin . Patient's son also reports that patient has daily hematuria. CT abdomen and pelvis showed a stone in the left renal pelvis as well as a 39 mm abdominal aortic aneurysm. Patient is not reporting any abdominal pain at this time. Patient admitted for further treatment, evaluation and monitoring. Critical Care Note Critical Care Time?: No Stability Stability form required: No I personally scribed for PENNIE SKELTON MD ([email or web address]) on 02/13/24 at 10:00. Electronically submitted by Lauren Galvan ([employer]). I personally scribed for PENNIE SKELTON MD ([email or web address]) on 02/13/24 at 13:04. Electronically submitted by Lauren Galvan ([employer]). PENNIE SKELTON MD Feb 13, 2024 10:00
[2024-02-13 10:15] LABS: Hematocrit 39.6 % (41.0-53.0); Hemoglobin 13.8 g/dL (13.5-17.5); Mean Corpuscular Hgb Conc. 34.9 g/dL (32.0-36.0); Mean Corpuscular Volume 88.6 fL (80.0-100.0); Platelet Count (auto) 88 10^3/uL (140-450); Red Blood Cells 4.47 10^6/uL (4.5-5.90); Red Cell Distribution Width 14.2 % (11.8-14.3); White Blood Cell 2.7 10^3/uL (4.4-10.8)
[2024-02-13 10:18] LABS: Band Neutrophils % (manual) 0; Basophils % (manual) 0 (0.0-2.0); Blast Cells 0; Eosinophils % (manual) 0 (0-7); Metamyelocytes % 0; Myelocytes % 0; Promyelocytes % 0; Reactive Lymphocytes 0
[2024-02-13 10:26] LABS: Partial Thromboplastin Time 39.9 SEC (24.5-34.5); Prothrombin Time 41.4 sec (9.3-11.8)
[2024-02-13 10:30] LABS: Albumin 4.3 g/dL (3.2-4.8); Alkaline Phosphatase 66 U/L (46-116); Anion Gap 10 (5-15); Aspartate Aminotransferase 10 U/L (13-40); BUN/Creatinine Ratio 15.3 (10.0-20.0); Blood Urea Nitrogen 25 mg/dL (9-23); Calcium 10.4 mg/dL (8.7-10.4); Carbon Dioxide 23 mmol/L (20-31); Chloride 104 mmol/L (98-107); Glucose 139 mg/dL (74-106); Potassium 4.1 mmol/L (3.5-5.1); Sodium 137 mmol/L (136-145)
[2024-02-13 10:31] LABS: Bilirubin, Total 1.2 mg/dL (0.2-1.0)
[2024-02-13 10:33] LABS: Alanine Aminotransferase < 9 U/L (7-40)
[2024-02-13 10:57] LABS: INR 4.36 (0.9-1.15)
[2024-02-13] MEDS: SODIUM CHLORIDE 0.9% 1,000 ML IV ONE (11:29)
--- NOTE | 2024-02-13 11:50 | DVH ---
Exam: CT CT AB PEL WO CON-NO ORAL OR IV History: hematuria, difficulty urinating Comparison Study: CT CT AB PEL WO CON-NO ORAL OR IV on DOS: 06/17/22, [facility] on DOS: 01/18/22, CT ABD PE LVIS WO CONTRAST on DOS: 09/21/20 Technique: Multidetector spiral CT of the abdomen and pelvis was performed from lung bases to pubic symphysis. Imaging was performed without IV contrast. Axial, coronal and sagittal multiplanar reform ats were obtained from the axial data set by the technologist. Radiation dose : Abdomen/Pelvis: CTDIvol 18.18 mGy, DLP 1129.45 mGy*cm. Findings: Evaluation of solid organs is limited due to lack of intravenous contrast use. Lung Bases: No acute or significant lung base finding. Normal heart size. No pleural or pericardial effusion. Liver: The liver is normal in size. No focal lesions. Gallbladder and biliary Tree: Unremarkable Spleen: There are a few hypodensities in the spleen, largest measuring up to 17 mm. Spleen is enlarge d Pancreas: The pancreas is grossly normal in appearance. Adrenal Glands: Unremarkable Kidneys: There is a calculus in the left renal pelvis measuring up to 8mm no significant left hydrone phrosis. There is a right renal cyst measuring up to 30mm. Bladder: Grossly unremarkable for degree of distention. Bowel: The stomach is grossly normal in appearance. Small bowel and colon are normal in caliber and d istribution. Normal appendix is visualized in the right lower quadrant without findings of appendici tis. Sigmoid diverticulosis is noted Ascites: Absent Lymphadenopathy: No mesenteric, retroperitoneal or periportal lymphadenopathy. Abdominal wall and Mesentery: Unremarkable. Vasculature: There is an infrarenal abdominal aortic aneurysm measuring up to 39mm. Calcified atheros clerotic disease is noted. Pelvic Organs: Coarse calcifications in the prostate Musculoskeletal: Scoliosis of the thoracolumbar spine with multilevel degenerative disease. IMPRESSION: 1. Calculus in the left renal pelvis measuring up to 8mm without significant hydronephrosis. Urology evaluation is recommended. 2. Few hypodensities in the spleen could be cyst or lymphangioma. 3. Right renal cyst. 4. Abdominal aneurysm measuring up to 39mm. This could be further evaluated with CTA of the abdomen p abdi. 5. Diverticulosis Radiation optimization: All CT scans at this facility use at least one of these dose optimization butch hniques: Automated exposure control mA and/or kV adjustment per patient size (includes targeted exams where dose is matched to clinical indication) or iterative reconstruction. HS:Y
[2024-02-13 12:27] LABS: Urine Bacteria None Seen /hpf (None Seen)
[2024-02-13 12:41] LABS: Lymphocytes % (manual) 46 (10.0-50.0); Monocytes % (manual) 6 (0-12); Platelet Estimate Decreased
[2024-02-13 12:45] LABS: Urine Blood 3+ /uL (Negative); Urine Budding Yeast OCCASIONAL /hpf (None Seen); Urine Clarity Ex.Turbid (Clear); Urine Color Orange (Yellow); Urine Hyaline Cast MOD /lpf (0 - 2); Urine Mucus FEW (None Seen); Urine Protein, UAD 3+ (Negative); Urine Specific Gravity 1.022 (1.001-1.035); Urine Urobilinogen 2 mg/dL (Negative); Urine WBC 907 /hpf (0 - 3); Urine WBC Clumps PRESENT /hpf (None Seen); Urine pH 5.5 (5.0-9.0)
[2024-02-13] MEDS ORDERED: HYDROcodone-ACET 5/325MG TAB PO PRN (13:00)
[2024-02-13] MEDS ORDERED: ALBUTEROL SULF 2.5 MG/0.5ML(0.5%) NEB SOLN NEB PRN (13:00)
[2024-02-13] MEDS ORDERED: IPRATROPIUM BROM 0.5 MG/2.5ML INH SOL NEB PRN (13:00)
--- NOTE | 2024-02-13 13:08 | DVHHP2 ---
History of Present Illness Reason for Visit: Hematuria, dysuria History of Present Illness The patient was an 78-year-old male presenting to the emergency room complaints of worsening dysuria, hematuria. The patient's son who is accompanying the patient, also reports having worsening forgetfulness, generalized weakness. Patient was a significant history chronic UTIs, renal calculi, thrombocytopenia, Parkinson's disease, and history mitral valve replacement approximately 20 years ago with current anticoagulation with Coumadin. At this time, the patient denies having any fevers, chills, but does report having nausea over the past several days. Cardiovascular: HTN, hyperipidemia Heme/Onc: Anemia NOS Renal/: Chronic renal insuff, UTI, Hematuria Past Surgical History: Other (Prosthetic valve replacement), Total knee replacement (Bilateral) Family History: Arthritis Smoke: No ALCOHOL: none Drugs: None Lives: with Family Review of Systems Constitutional: Yes: Weakness Eyes: No: Pain, Vision change, Conjunctivae inflammation, Eyelid inflammation, Other, Redness ENT: No: Ear pain, Ear discharge, Nose pain, Nose discharge, Nose congestion, Mouth pain, Mouth swelling, Throat pain, Throat swelling, Other Respiratory: No: Cough, Dry, Shortness of breath, SOB with excertion, Wheezing, Hemoptysis, Pleuritic Pain, Sputum, Wheezing, Other Cardiovascular: No: Chest Pain, Palpitations, Orthopnea, Paroxysmal Noc. Dyspnea, Edema, Lt Headedness, Other Gastrointestinal: Nausea Genitourinary: Dysuria, Hematuria Musculoskeletal: No: other, neck pain, shoulder pain, arm pain, back pain, hand pain, leg pain, foot pain Skin: No: Rash, Lesions, Jaundice, Bruising, Other Neurological: No: Weakness, Numbness, Incoordination, Change in speech, Confusion, Seizures, Other Allergies: Coded Allergies: Ciprofloxacin (Verified Allergy, Mild, oral blisters and rash, 10/06/20) Sulfa Antibiotics (Verified Allergy, Unknown, 09/07/23) Exam Vital Signs Vital Signs Date Time Temp Pulse Resp B/P (MAP) Pulse Ox O2 Delivery O2 Flow Rate FiO2 02/13/24 11:15 76 16 96 Room Air 02/13/24 11:15 98.0 130/55 (80) 98.0 02/13/24 09:47 0 21 General Appearance: Alert, Oriented X3, Cooperative, No acute distress HEENT: Atraumatic, PERRLA Respiratory: Clear to auscultation, Normal air movement Cardiovascular: Normal S1, Normal S2 Abdominal: Normal bowel sounds, No tenderness Extremities: No clubbing, No cyanosis Skin: No rashes, No breakdown Neuro: Normal gait, Normal speech, Strength at 5/5 X4 ext Psych/Mental Status: Mental status NL, Mood NL Labs/Xrays Labs Test 02/13/24 09:34 02/13/24 09:15 Range/Units White Blood Count 2.7 L 4.4-10.8 10^3/uL Red Blood Count 4.47 L 4.5-5.90 10^6/uL Hemoglobin 13.8 13.5-17.5 g/dL Hematocrit 39.6 L 41.0-53.0 % Mean Corpuscular Volume 88.6 80.0-100.0 fL Mean Corpuscular Hemoglobin 31.0 28.0-32.0 pg Mean Corpuscular Hemoglobin Concent 34.9 32.0-36.0 g/dL Red Cell Distribution Width 14.2 11.8-14.3 % Platelet Count 88 L 140-450 10^3/uL Mean Platelet Volume 8.0 6.9-10.8 fL Neutrophils (%) (Auto) 37.0-80.0 % Lymphocytes (%) (Auto) 10.0-50.0 % Monocytes (%) (Auto) 0.0-12.0 % Basophils (%) (Auto) 0.0-2.0 % Neutrophils # (Auto) 1.6-8.6 10 ^3/uL Lymphocytes # (Auto) 0.4-5.4 10 ^3/uL Monocytes # (Auto) 0-1.3 10 ^3/uL Differential Total Cells Counted 100.0 100 Neutrophils % (Manual) 48 37.0-80.0 Band Neutrophils % (Manual) 0 Lymphocytes % (Manual) 46 10.0-50.0 Monocytes % (Manual) 6 0-12 Eosinophils % (Manual) 0 0-7 Basophils % (Manual) 0 0.0-2.0 Metamyelocytes % (manual) 0 Myelocytes % (Manual) 0 Promyelocytes % (Manual) 0 Blast Cells % (Manual) 0 Reactive Lymphocytes 0 Platelet Estimate Decreased Prothrombin Time 41.4 H 9.3-11.8 sec Prothrombin Time INR 4.36 *H 0.9-1.15 Activated Partial Thromboplast Time 39.9 H 24.5-34.5 SEC Sodium Level 137 136-145 mmol/L Potassium Level 4.1 3.5-5.1 mmol/L Chloride Level 104 98-107 mmol/L Carbon Dioxide Level 23 20-31 mmol/L Anion Gap 10 5-15 Blood Urea Nitrogen 25 H 9-23 mg/dL Creatinine 1.63 H 0.700-1.30 mg/dL Glomerular Filtration Rate Calc 42 >90 mL/min BUN/Creatinine Ratio 15.3 10.0-20.0 Serum Glucose 139 H 74-106 mg/dL Calcium Level 10.4 8.7-10.4 mg/dL Total Bilirubin 1.2 H 0.2-1.0 mg/dL Aspartate Amino Transferase (AST) 10 L 13-40 U/L Alanine Aminotransferase (ALT) < 9 7-40 U/L Alkaline Phosphatase 66 46-116 U/L Total Protein 7.0 5.7-8.2 g/dL Albumin 4.3 3.2-4.8 g/dL Urine Color [place] H Yellow Urine Clarity Ex.turbid Clear Urine pH 5.5 5.0-9.0 Urine Specific [place] 1.022 1.001-1.035 Urine Protein 3+ H Negative Urine Ketones Trace Negative Urine Blood 3+ H Negative /uL Urine Nitrite Negative Negative Urine Bilirubin Negative Negative Urine Urobilinogen 2 H Negative mg/dL Urine Leukocyte Esterase 3+ Negative /uL Urine RBC 137 0 - 3 /hpf Urine WBC 907 0 - 3 /hpf Urine WBC Clumps Present None Seen /hpf Urine Squamous Epithelial Cells None seen <5 /hpf Urine Bacteria None seen None Seen /hpf Urine Hyaline Casts Mod 0 - 2 /lpf Urine Granular Casts Many 0 /lpf Urine Mucus Few None Seen Urine Yeast (Budding) Occasional None Seen /hpf Urine Glucose Normal Normal mg/dL Assessment/Plan Assessment/Plan Impression: -complicated cystitis -renal calculi -hematuria -pancytopenia -history of prosthetic mitral valve replacement -primary hypertension -Parkinson disease -chronic kidney disease stage 3 Plan: -admit to Medical/Surgical unit -hold Plavix and warfarin given reported hematuria as well as elevated INR and thrombocytopenia -start antibiotic therapy with Rocephin -urology consultation -medication reconciliation, restart home medications other than blood thinner/anticoagulants -repeat labs in a.m. -urinalysis, urine culture Total time spent with patient discussing and formulating plan of care: 35 minutes. This medical document was created using an electronic medical record system with marker[employer] dictation system. Although this document has been carefully reviewed, there may still be some phonetic and typographical errors. These areas are purely typographical due to imperfections of the software programs, and do not reflect any compromise in the patient's medical care. Plan discussed with: Patient, Other (RN) My Orders Orders - SHEA GAYTAN NP Procedure Category Date Status Time Admit ADMIT 02/13/24 Verified 12:54 Oxygen By Nasal RT 02/13/24 Verified Cannula 12:54 Urine Bacterial YSABEL 02/13/24 Verified Culture 12:54 * Urology Consult CONS 02/13/24 Verified 12:54 Date of Service: Feb 13, 2024 Billing Provider: SHEA GAYTAN NP Common Visit Codes: [id number] INP/OBS CARE (HIGH) SHEA GAYTAN NP Feb 13, 2024 13:08
--- NOTE | 2024-02-13 16:35 | DVHINCON2 ---
Date of service: Feb 13, 2024 Referring Physician Hospitalist Reason for Consultation Left renal stone, 8 mm History of Present Illness 78-year-old male presenting to the emergency room complaints of worsening dysuria, hematuria. The patient's son who is accompanying the patient, also reports having worsening forgetfulness, generalized weakness. Patient was a significant history chronic UTIs, renal calculi, thrombocytopenia, Parkinson's disease, and history mitral valve replacement approximately 20 years ago with current anticoagulation with Coumadin. At this time, the patient denies having any fevers, chills, but does report having nausea over the past several days. Past Medical History HTN, hyperipidemia Heme/Onc: Anemia NOS Renal/: Chronic renal insuff, UTI, Hematuria Past Surgical History (Prosthetic valve replacement), Total knee replacement (Bilateral). cystoscopy, lithotripsy Family History: Cancer FH: breast cancer G8 SISTER FH: lung cancer G8 FATHER Family history: Cardiovascular disease G8 MOTHER Family history: Diabetes mellitus G8 BROTHER Allergies: Coded Allergies: Ciprofloxacin (Verified Allergy, Mild, oral blisters and rash, 10/06/20) Sulfa Antibiotics (Verified Allergy, Unknown, 09/07/23) Home Meds Active Scripts Cobalamin (Adeno+Hydroxo B12) 2,500 Mcg Tab, 2500 MCG PO DAILY for 30 Days, #30 TAB 0 Refills Prov:WILLIE SILVERMAN RESIDENT 09/21/23 Warfarin Sodium (Warfarin Sodium) 4 Mg Tab, 1 TAB PO DAILY, #30 Prov:REFUGIO WIN Pharmacist 05/07/20 Reported Medications Duloxetine Hcl (Cymbalta) 60 Mg Cap, 60 MG PO DAILY, CAP 09/18/23 Carbidopa-Levodopa (Rytary 36.25-145 mg) 1 Cap Cap, 2 CAP PO QID for PARKINSONS, CAP 07/25/23 Pregabalin (Lyrica) 150 Mg Cap, 1 CAP PO BID for NEUROPATHY 07/25/23 Baclofen (Baclofen) 10 Mg Tab, 10 MG PO DAILY for BACK PAIN 06/22/22 Hydrocodone-Acetaminophen (Hydrocodone Bitartrate/AC 10-325 mg) 1 Tab Tab, 1 TAB PO DAILY for PAIN, TAB 06/22/22 Aspirin (Aspir-Low) 81 Mg Tab, 81 MG PO HS for CARDIAC 06/22/22 Tamsulosin Hcl (Tamsulosin Hcl) 0.4 Mg Cap, 0.4 MG PO QPM for PROSTATE 06/22/22 Clopidogrel Bisulfate (Plavix) 75 Mg Tab, 75 MG PO DAILY for BLOOD THINNER 10/06/20 Lovastatin (Lovastatin) 40 Mg Tab, 1 TAB PO DAILY for CHOLESTEROL 05/04/20 Current Medications Current Medications Medications (Trade) Dose Ordered Sig/[place] Route PRN Reason Start Time Stop Time Status Last Admin Morphine Sulfate 1 mg Q4HPRN PRN IV SEVERE PAIN (7-10 PAIN SCALE) 02/13/24 13:00 Acetaminophen/ Hydrocodone Bitart ([place] 5/325MG Tab) 1 tab Q6HPRN PRN PO MODERATE PAIN (4-6 PAIN SCALE) 02/13/24 13:00 Acetaminophen (Tylenol Tablet) 500 mg Q8HP PRN PO PAIN SCALE 1-3 OR TEMP>100.4 02/13/24 13:00 Ondansetron HCl (Zofran) 4 mg Q6HP PRN IV NAUSEA / VOMITING 02/13/24 13:00 Docusate Sodium (Colace Capsule) 100 mg BID PRN PO FOR CONSTIPATION 02/13/24 13:00 Albuterol (Ventolin Medneb) 2.5 mg Q4HPRN PRN NEB SHORTNESS OF BREATH 02/13/24 13:00 Ipratropium [place] (Atrovent Medneb) 0.5 mg Q4HPRN PRN NEB SHORTNESS OF BREATH 02/13/24 13:00 Ceftriaxone Sodium 50 ml @ 100 mls/hr DAILY@09 IV 02/14/24 09:00 Aspirin (Ecotrin Enteric Coated Tablet) 81 mg HS PO 02/13/24 22:00 Baclofen (Liorisal Tablet) 10 mg HS PO 02/13/24 22:00 Acetaminophen/ Hydrocodone Bitart ([place] 10/325MG Tab) 1 tab DAILY PO 02/14/24 10:00 02/13/24 13:24 DC Tamsulosin HCl (Flomax) 0.4 mg QPM PO 02/13/24 18:00 Patient Own Medication 2 cap QID PO 02/13/24 18:00 02/13/24 14:21 DC Patient Own Medication 2,500 mcg DAILY PO 02/14/24 10:00 UNV Pravastatin Sodium (Pravachol Tablet) 20 mg HS PO 02/13/24 22:00 Pregabalin (Lyrica Capsule) 150 mg BID PO 02/13/24 22:00 Review of Systems Constitutional: Yes: Weakness Eyes: No: Pain, Vision change, Conjunctivae inflammation, Eyelid inflammation, Other, Redness ENT: No: Ear pain, Ear discharge, Nose pain, Nose discharge, Nose congestion, Mouth pain, Mouth swelling, Throat pain, Throat swelling, Other Respiratory: No: Cough, Dry, Shortness of breath, SOB with excertion, Wheezing, Hemoptysis, Pleuritic Pain, Sputum, Wheezing, Other Cardiovascular: No: Chest Pain, Palpitations, Orthopnea, Paroxysmal Noc. Dyspnea, Edema, Lt Headedness, Other Gastrointestinal: Nausea Genitourinary: Dysuria, Hematuria Musculoskeletal: No: other, neck pain, shoulder pain, arm pain, back pain, hand pain, leg pain, foot pain Skin: No: Rash, Lesions, Jaundice, Bruising, Other Neurological: No: Weakness, Numbness, Incoordination, Change in speech, Confus ion, Seizures, Other Allergies: Coded Allergies: Ciprofloxacin (Verified Allergy, Mild, oral blisters and rash, 10/06/20) Sulfa Antibiotics (Verified Allergy, Unknown, 09/07/23) Vital Signs Vital Signs Date Time Temp Pulse Resp B/P (MAP) Pulse Ox O2 Delivery O2 Flow Rate FiO2 02/13/24 13:13 98.5 72 18 134/67 (89) 95 98.5 02/13/24 11:15 Room Air 02/13/24 09:47 0 21 Physical Exam Vital Signs Date Time Temp Pulse Resp B/P (MAP) Pulse Ox O2 Delivery O2 Flow Rate FiO2 02/13/24 11:15 76 16 96 Room Air 02/13/24 11:15 98.0 130/55 (80) 98.0 02/13/24 09:47 0 21 General Appearance: Alert, Oriented X3, Cooperative, No acute distress HEENT: Atraumatic, PERRLA Respiratory: Clear to auscultation, Normal air movement Cardiovascular: Normal S1, Normal S2 Abdominal: Normal bowel sounds, No tenderness Extremities: No clubbing, No cyanosis Skin: No rashes, No breakdown Neuro: Normal gait, Normal speech, Strength at 5/5 X4 ext Psych/Mental Status: Mental status NL, Mood NL Labs/Diagnostic Data Labs Test 02/13/24 09:34 02/13/24 09:15 Range/Units White Blood Count 2.7 L 4.4-10.8 10^3/uL Red Blood Count 4.47 L 4.5-5.90 10^6/uL Hemoglobin 13.8 13.5-17.5 g/dL Hematocrit 39.6 L 41.0-53.0 % Mean Corpuscular Volume 88.6 80.0-100.0 fL Mean Corpuscular Hemoglobin 31.0 28.0-32.0 pg Mean Corpuscular Hemoglobin Concent 34.9 32.0-36.0 g/dL Red Cell Distribution Width 14.2 11.8-14.3 % Platelet Count 88 L 140-450 10^3/uL Mean Platelet Volume 8.0 6.9-10.8 fL Neutrophils (%) (Auto) 37.0-80.0 % Lymphocytes (%) (Auto) 10.0-50.0 % Monocytes (%) (Auto) 0.0-12.0 % Basophils (%) (Auto) 0.0-2.0 % Neutrophils # (Auto) 1.6-8.6 10 ^3/uL Lymphocytes # (Auto) 0.4-5.4 10 ^3/uL Monocytes # (Auto) 0-1.3 10 ^3/uL Differential Total Cells Counted 100.0 100 Neutrophils % (Manual) 48 37.0-80.0 Band Neutrophils % (Manual) 0 Lymphocytes % (Manual) 46 10.0-50.0 Monocytes % (Manual) 6 0-12 Eosinophils % (Manual) 0 0-7 Basophils % (Manual) 0 0.0-2.0 Metamyelocytes % (manual) 0 Myelocytes % (Manual) 0 Promyelocytes % (Manual) 0 Blast Cells % (Manual) 0 Reactive Lymphocytes 0 Platelet Estimate Decreased Prothrombin Time 41.4 H 9.3-11.8 sec Prothrombin Time INR 4.36 *H 0.9-1.15 Activated Partial Thromboplast Time 39.9 H 24.5-34.5 SEC Sodium Level 137 136-145 mmol/L Potassium Level 4.1 3.5-5.1 mmol/L Chloride Level 104 98-107 mmol/L Carbon Dioxide Level 23 20-31 mmol/L Anion Gap 10 5-15 Blood Urea Nitrogen 25 H 9-23 mg/dL Creatinine 1.63 H 0.700-1.30 mg/dL Glomerular Filtration Rate Calc 42 >90 mL/min BUN/Creatinine Ratio 15.3 10.0-20.0 Serum Glucose 139 H 74-106 mg/dL Calcium Level 10.4 8.7-10.4 mg/dL Total Bilirubin 1.2 H 0.2-1.0 mg/dL Aspartate Amino Transferase (AST) 10 L 13-40 U/L Alanine Aminotransferase (ALT) < 9 7-40 U/L Alkaline Phosphatase 66 46-116 U/L Total Protein 7.0 5.7-8.2 g/dL Albumin 4.3 3.2-4.8 g/dL Urine Color [place] H Yellow Urine Clarity Ex.turbid Clear Urine pH 5.5 5.0-9.0 Urine Specific [place] 1.022 1.001-1.035 Urine Protein 3+ H Negative Urine Ketones Trace Negative Urine Blood 3+ H Negative /uL Urine Nitrite Negative Negative Urine Bilirubin Negative Negative Urine Urobilinogen 2 H Negative mg/dL Urine Leukocyte Esterase 3+ Negative /uL Urine RBC 137 0 - 3 /hpf Urine WBC 907 0 - 3 /hpf Urine WBC Clumps Present None Seen /hpf Urine Squamous Epithelial Cells None seen <5 /hpf Urine Bacteria None seen None Seen /hpf Urine Hyaline Casts Mod 0 - 2 /lpf Urine Granular Casts Many 0 /lpf Urine Mucus Few None Seen Urine Yeast (Budding) Occasional None Seen /hpf Urine Glucose Normal Normal mg/dL PATIENT: QUENTIN SMITH ACCT: [id number] UNIT: [id number] : 1945 LOC: ER ROOM / BED: / AGE / SEX: 78 / M ADM STATUS: REG ER SERVICE 1100 ORDERING PHYSICIAN: PENNIE SKELTON MD PROCEDURE(s): ABPL - CT AB PEL WO CON-NO ORAL OR IV REASON: hematuria, difficulty urinating ORDER NUMBER(s): [id number], ACCESSION NUMBER(s): [id number] Exam: CT CT AB PEL WO CON-NO ORAL OR IV History: hematuria, difficulty urinating Comparison Study: CT CT AB PEL WO CON-NO ORAL OR IV on DOS: 06/17/22, [facility] on DOS: 01/18/22, CT ABD PELVIS WO CONTRAST on DOS: 09/21/20 Technique: Multidetector spiral CT of the abdomen and pelvis was performed from lung bases to pubic symphysis. Imaging was performed without IV contrast. Axial, coronal and sagittal multiplanar reformats were obtained from the axial data set by the technologist. Radiation dose : Abdomen/Pelvis: CTDIvol 18.18 mGy, DLP 1129.45 mGy*cm. Findings: Evaluation of solid organs is limited due to lack of intravenous contrast use. Lung Bases: No acute or significant lung base finding. Normal heart size. No pleural or pericardial effusion. Liver: The liver is normal in size. No focal lesions. Gallbladder and biliary Tree: Unremarkable Spleen: There are a few hypodensities in the spleen, largest measuring up to 17 mm. Spleen is enlarged Pancreas: The pancreas is grossly normal in appearance. Adrenal Glands: Unremarkable Kidneys: There is a calculus in the left renal pelvis measuring up to 8mm no significant left hydronephrosis. There is a right renal cyst measuring up to 30mm. Bladder: Grossly unremarkable for degree of distention. Bowel: The stomach is grossly normal in appearance. Small bowel and colon are normal in caliber and distribution. Normal appendix is visualized in the right lower quadrant without findings of appendicitis. Sigmoid diverticulosis is noted Ascites: Absent Lymphadenopathy: No mesenteric, retroperitoneal or periportal lymphadenopathy. Abdominal wall and Mesentery: Unremarkable. Vasculature: There is an infrarenal abdominal aortic aneurysm measuring up to 39mm. Calcified atherosclerotic disease is noted. Pelvic Organs: Coarse calcifications in the prostate Musculoskeletal: Scoliosis of the thoracolumbar spine with multilevel degener ative disease. IMPRESSION: 1. Calculus in the left renal pelvis measuring up to 8mm without significant hydronephrosis. Urology evaluation is recommended. 2. Few hypodensities in the spleen could be cyst or lymphangioma. 3. Right renal cyst. 4. Abdominal aneurysm measuring up to 39mm. This could be further evaluated with CTA of the abdomen pelvis. 5. Diverticulosis Radiation optimization: All CT scans at this facility use at least one of these dose optimization techniques: Automated exposure control mA and/or kV adjustment per patient size (includes targeted exams where dose is matched to clinical indication) or iterative reconstruction. HS:Y ATED BY: JERICHO VALENTE MD DICTATED DATE/TIME: 02/13/24 1148 SIGNED BY: JERICHO VALENTE MD SIGNED DATE/TIME: 02/13/24 1148 CC: Assessment Left renal stone Plan/Recommendation Left ESWL TBA when INR is normal If unable to stop ASA/coumadin, then will plan for endoscopic CVAC laser lithotripsy Plan discussed with: Patient, Other VANESSA FAYE MD Feb 13, 2024 16:35
[2024-02-13] MEDS ORDERED: CARBIDOPA LEVODOPA PO SCH (18:00)
[2024-02-13] MEDS: TAMSULOSIN HYDROCHLORIDE 0.4 MG CAP PO SCH (18:29)
[2024-02-13 19:38] VITALS: RESP 19; O2SAT 97
[2024-02-13] MEDS ORDERED: ASPirin-EC 81 mg tab PO SCH (22:00)
[2024-02-13] MEDS: BACLOFEN 10 MG TAB PO SCH (22:22)
[2024-02-13] MEDS: PREGABALIN CAPSULE 75 MG CAP PO SCH (22:23)
[2024-02-13] MEDS: PRAVASTATIN SODIUM 20 MG TAB PO SCH (22:23)
[2024-02-13 22:45] VITALS: BP 135/54; PULSE 79; RESP 18; TEMP 98; O2SAT 97
[2024-02-14] VITALS (12 sets, daily range): BP systolic 96–134; BP diastolic 38–74; PULSE 64–79; RESP 18–20; TEMP 97.4–98.6; O2SAT 93–97
[2024-02-14] MEDS ORDERED: MELO7.5T7 PO (01:00)
[2024-02-14] MEDS ORDERED: HYDROcodone-ACET 10/325MG TAB PO SCH (10:00)
[2024-02-14] MEDS: [UNRECOGNIZED DRUG - MIXTURE] PO SCH (10:00)
[2024-02-14] MEDS: cefTRIAXone 1GM/50ML D5W 50 ML IV SCH (10:20)
--- NOTE | 2024-02-14 10:51 | DVHPN2 ---
Subjective Patient continues to report having generalized weakness. Reviewed: Care Plan, H&P, Labs, Medications, Previous Orders Changes from previous H/P or p: No Changes General: Per HPI Eyes: No Pain, No Vision change, No Conjunctivae inflammation, No Eyelid inflammation, No Other, No Redness ENT: No Ear pain, No Ear discharge, No Nose pain, No Nose discharge, No Nose congestion, No Mouth pain, No Mouth swelling, No Throat pain, No Throat swelling, No Other Cardiovascular: No Chest Pain, No Palpitations, No Orthopnea, No Paroxysmal Noc. Dyspnea, No Edema, No Lt Headedness, No Other Respiratory: No Cough, No Dry, No Shortness of breath, No SOB with excertion, No Wheezing, No Hemoptysis, No Pleuritic Pain, No Sputum, No Other Gastrointestinal: Nausea Genitourinary: Dysuria, Hematuria Musculoskeletal: No other, No neck pain, No shoulder pain, No arm pain, No back pain, No hand pain, No leg pain, No foot pain Skin: No Rash, No Lesions, No Jaundice, No Bruising, No Other Objective Vitals Vital Signs Date Time Temp Pulse Resp B/P (MAP) Pulse Ox O2 Delivery O2 Flow Rate FiO2 02/14/24 09:07 97 Room Air 0.0 02/14/24 09:07 21 02/14/24 05:00 98.6 71 20 118/38 (64) 98.6 Intake/Output Intake and Output 02/14/24 07:00 Intake Total 0 ml Output Total 300 ml Balance -300 ml Intake Oral 0 ml Output Urine Total 300 ml General Appearance: Oriented X3, Cooperative HEENT: Atraumatic, PERRLA Lungs: Clear to auscultation, Normal air movement Cardiovascular: Normal S1, Normal S2 Abdomen: Normal bowel sounds Genitourinary: No Apparent Abnormalities Musculoskeletal: Normal sensory function, Normal motor function Psych/Mental Status: Mental status NL, Mood NL Medications Current Medications Medications Dose Ordered Sig/[place] Route Start Time Stop Time Status Last Admin Dose Admin Morphine Sulfate 1 mg Q4HPRN PRN IV 02/13/24 13:00 Acetaminophen/ Hydrocodone Bitart 1 tab Q6HPRN PRN PO 02/13/24 13:00 Acetaminophen 500 mg Q8HP PRN PO 02/13/24 13:00 Ondansetron HCl 4 mg Q6HP PRN IV 02/13/24 13:00 Docusate Sodium 100 mg BID PRN PO 02/13/24 13:00 Albuterol 2.5 mg Q4HPRN PRN NEB 02/13/24 13:00 Ipratropium [place] 0.5 mg Q4HPRN PRN NEB 02/13/24 13:00 Ceftriaxone Sodium 50 ml @ 100 mls/hr DAILY@09 IV 02/14/24 09:00 02/14/24 10:20 100 MLS/HR Baclofen 10 mg HS PO 02/13/24 22:00 02/13/24 22:22 10 MG Tamsulosin HCl 0.4 mg QPM PO 02/13/24 18:00 02/13/24 18:29 0.4 MG Patient Own Medication 2,500 mcg DAILY PO 02/14/24 10:00 Pravastatin Sodium 20 mg HS PO 02/13/24 22:00 02/13/24 22:23 20 MG Pregabalin 150 mg BID PO 02/13/24 22:00 02/14/24 10:21 150 MG Laboratory Results Laboratory Tests 02/13/24 09:34 Urinalysis Test 02/13/24 09:15 Urine Color [place] (Yellow) H Urine Clarity Ex.turbid (Clear) Urine pH 5.5 (5.0-9.0) Urine Specific [place] 1.022 (1.001-1.035) Urine Protein 3+ (Negative) H Urine Ketones Trace (Negative) Urine Blood 3+ /uL (Negative) H Urine Nitrite Negative (Negative) Urine Bilirubin Negative (Negative) Urine Urobilinogen 2 mg/dL (Negative) H Urine Leukocyte Esterase 3+ /uL (Negative) Urine RBC 137 /hpf (0 - 3) Urine WBC 907 /hpf (0 - 3) Urine WBC Clumps Present /hpf (None Seen) Urine Squamous Epithelial Cells None seen /hpf (<5) Urine Bacteria None seen /hpf (None Seen) Urine Hyaline Casts Mod /lpf (0 - 2) Urine Granular Casts Many /lpf (0) Urine Mucus Few (None Seen) Urine Yeast (Budding) Occasional /hpf (None Urine Glucose Normal mg/dL (Normal) Microbiology Microbiology Date/Time Source Procedure Growth Status 02/13/24 09:15 Voided Urine Urine Culture - Preliminary Resulted Labs and/or images reviewed: Labs reviewed by me, Image(s) reviewed by me Assessment/Plan Assessment/Plan Impression: -complicated cystitis -renal calculi -hematuria -pancytopenia -history of prosthetic mitral valve replacement -primary hypertension -Parkinson disease -chronic kidney disease stage 3 -chronic B-cell lymphoma Plan: -no new events overnight. Urinalysis with hematuria, leukocytosis. INR pending today. Consider correction of Coumadin. -continue Rocephin -urology consultation : Recommendations reviewed -hold anticoagulation, antiplatelet therapy -repeat labs in a.m. -urinalysis, urine culture: Pending Total time spent with patient discussing and formulating plan of care: 35 minutes. This medical document was created using an electronic medical record system with [employer] dictation system. Although this document has been carefully reviewed, there may still be some phonetic and typographical errors. These areas are purely typographical due to imperfections of the software programs, and do not reflect any compromise in the patient's medical care. Plan discussed with: Patient, Other (RN) My Orders Orders - SHEA GAYTAN NP Procedure Category Date Status Time Admit ADMIT 02/13/24 Transmitted 12:54 Oxygen By Nasal RT 02/13/24 Transmitted Cannula 12:54 Urine Bacterial YSABEL 02/13/24 In Process Culture 12:54 * Urology Consult CONS 02/13/24 Transmitted 12:54 Morphine Sulfate PHA 02/13/24 In Process Injection 13:00 Hydrocodone-Acet PHA 02/13/24 In Process 5/325mg Tab ([place] 13:00 Acetaminophen Tablet PHA 02/13/24 In Process (Tylenol Tablet) 13:00 Ondansetron Hcl PHA 02/13/24 In Process (Zofran) 13:00 Docusate Sodium PHA 02/13/24 In Process Capsule (Colace 13:00 Albuterol Medneb PHA 02/13/24 In Process (Ventolin Medneb) 13:00 Ipratropium Medneb PHA 02/13/24 In Process (Atrovent Medneb) 13:00 Ceftriaxone 1gm/50ml PHA 02/14/24 In Process D5w (Rocephin) 09:00 Tamsulosin PHA 02/13/24 In Process Hydrochloride (Flomax) 18:00 (Nf) Cobalamin PHA 02/14/24 In Process (Adeno+Hydroxo B12) 10:00 Pregabalin Capsule PHA 02/13/24 In Process (Lyrica Capsule) 22:00 Baclofen Tablet PHA 02/13/24 In Process (Liorisal Tablet) 22:00 Pravastatin Sodium PHA 02/13/24 In Process Tablet (Pravachol Tab 22:00 Basic Metabolic Panel LAB 02/15/24 Verified 04:00 Complete Blood Count LAB 02/15/24 Verified 04:00 PTPTT LAB 02/15/24 Verified 04:00 Complete Blood Count LAB 02/14/24 Verified 10:45 PTPTT LAB 02/14/24 Verified 10:45 NS PHA 02/14/24 Verified 10:45 Date of Service: Feb 14, 2024 Billing Provider: SHEA GAYTAN NP Common Visit Codes: [id number] INP/OBS CARE(HIGH) SHEA GAYTAN NP Feb 14, 2024 10:51
[2024-02-14 11:34] LABS: Hematocrit 33.1 % (41.0-53.0); Hemoglobin 11.6 g/dL (13.5-17.5); Mean Corpuscular Hemoglobin 31.1 pg (28.0-32.0); Mean Corpuscular Hgb Conc. 35.2 g/dL (32.0-36.0); Mean Corpuscular Volume 88.3 fL (80.0-100.0); Platelet Count (auto) 64 10^3/uL (140-450); Red Blood Cells 3.75 10^6/uL (4.5-5.90); Red Cell Distribution Width 13.8 % (11.8-14.3)
[2024-02-14 11:48] LABS: White Blood Cell 1.9 10^3/uL (4.4-10.8)
[2024-02-14 11:50] LABS: Band Neutrophils % (manual) 0; Basophils % (manual) 0 (0.0-2.0); Blast Cells 0; Eosinophils % (manual) 0 (0-7); Metamyelocytes % 0; Myelocytes % 0; Partial Thromboplastin Time 48.1 SEC (24.5-34.5); Promyelocytes % 0; Prothrombin Time 44.2 sec (9.3-11.8); Reactive Lymphocytes 0
[2024-02-14 11:56] LABS: INR 4.67 (0.9-1.15)
[2024-02-14 13:04] LABS: Lymphocytes % (manual) 46 (10.0-50.0); Monocytes % (manual) 5 (0-12); Platelet Estimate Decreased
[2024-02-14 14:29] LABS: Wright Stain Ready for Review
[2024-02-14] MEDS ORDERED: CARB1CAP5 PO (16:24)
[2024-02-14] MEDS: SODIUM CHLORIDE 0.9% 1,000 ML IV ONE (18:35)
[2024-02-14] MEDS: PHYTONADIONE (VIT K)10 MG/ML 1ML VIAL SUBCUT ONE (18:39)
[2024-02-15] VITALS (10 sets, daily range): BP systolic 118–148; BP diastolic 46–83; PULSE 61–87; RESP 16–20; TEMP 97.6–98.1; O2SAT 91–97
[2024-02-15 06:21] LABS: Hematocrit 34.9 % (41.0-53.0); Hemoglobin 11.9 g/dL (13.5-17.5); Mean Corpuscular Hemoglobin 30.1 pg (28.0-32.0); Mean Corpuscular Hgb Conc. 34.1 g/dL (32.0-36.0); Mean Corpuscular Volume 88.5 fL (80.0-100.0); Platelet Count (auto) 80 10^3/uL (140-450); Red Blood Cells 3.95 10^6/uL (4.5-5.90); Red Cell Distribution Width 13.9 % (11.8-14.3)
[2024-02-15 06:30] LABS: Anion Gap 10 (5-15); Carbon Dioxide 23 mmol/L (20-31); Chloride 103 mmol/L (98-107); Potassium 4.1 mmol/L (3.5-5.1); Sodium 136 mmol/L (136-145)
[2024-02-15 06:31] LABS: Calcium 9.3 mg/dL (8.7-10.4)
[2024-02-15 06:36] LABS: BUN/Creatinine Ratio 13.4 (10.0-20.0); Glucose 90 mg/dL (74-106)
[2024-02-15 06:38] LABS: INR 3.34 (0.9-1.15); Partial Thromboplastin Time 42.2 SEC (24.5-34.5); Prothrombin Time 32.4 sec (9.3-11.8)
[2024-02-15 06:44] LABS: Band Neutrophils % (manual) 0; Basophils % (manual) 0 (0.0-2.0); Blast Cells 0; Eosinophils % (manual) 0 (0-7); Metamyelocytes % 0; Myelocytes % 0; Promyelocytes % 0; Reactive Lymphocytes 0
[2024-02-15 06:54] LABS: Blood Urea Nitrogen 51 mg/dL (9-23)
--- NOTE | 2024-02-15 08:48 | DVHPN2 ---
Progress Note - Dictate Date Seen: Feb 15, 2024 Has the PT tested + for MRSA If YES, has PT been informed?: No Medical Necessity Reason Pt with a Central, PICC or Fol: No Medical Necessity Reason INR 3.34 still high Creatineine 3.82 from 1.6 vital signs Vital Sign Date Time Temp Pulse Resp B/P (MAP) Pulse Ox O2 Delivery O2 Flow Rate FiO2 02/15/24 08:00 72 18 95 Room Air* 0 21 02/15/24 05:00 98.1 120/67 (84) 98.1 Total Intake and Output 02/14/24 02/14/24 02/15/24 15:00 23:00 07:00 Intake Total 50 ml 475 ml 120 ml Output Total 1500 ml 500 ml Balance 50 ml -1025 ml -380 ml medications Current Medications Medications Dose Ordered Sig/Desmond Route Start Time Stop Time Status Last Admin Dose Admin Morphine Sulfate 1 mg Q4HPRN PRN IV 02/13/24 13:00 Acetaminophen/ Hydrocodone Bitart 1 tab Q6HPRN PRN PO 02/13/24 13:00 Acetaminophen 500 mg Q8HP PRN PO 02/13/24 13:00 Ondansetron HCl 4 mg Q6HP PRN IV 02/13/24 13:00 Docusate Sodium 100 mg BID PRN PO 02/13/24 13:00 Albuterol 2.5 mg Q4HPRN PRN NEB 02/13/24 13:00 Ipratropium [place] 0.5 mg Q4HPRN PRN NEB 02/13/24 13:00 Ceftriaxone Sodium 50 ml @ 100 mls/hr DAILY@09 IV 02/14/24 09:00 02/14/24 10:20 100 MLS/HR Baclofen 10 mg HS PO 02/13/24 22:00 02/14/24 21:13 10 MG Tamsulosin HCl 0.4 mg QPM PO 02/13/24 18:00 02/14/24 18:39 0.4 MG Patient Own Medication 2,500 mcg DAILY PO 02/14/24 10:00 Pravastatin Sodium 20 mg HS PO 02/13/24 22:00 02/14/24 21:13 20 MG Pregabalin 150 mg BID PO 02/13/24 22:00 02/14/24 21:14 150 MG laboratory and microbiology Laboratory Tests 02/15/24 05:32 Test 02/15/24 05:32 Range/Units Serum Glucose 90 74-106 mg/dL Assessment/Plan Left renal stone WILLARD Repeat imaging with Renal US If there is obstructive uropathy, will place stent Keep NPO until decision made Plan discussed with: VANESSA Hurt MD Feb 15, 2024 08:48
[2024-02-15 09:12] LABS: Lymphocytes % (manual) 41 (10.0-50.0); Monocytes % (manual) 10 (0-12); Platelet Estimate Decreased
--- NOTE | 2024-02-15 09:23 | DVH ---
INDICATION: Elevated creatinine. TECHNIQUE: Multiple real-time sonographic images of the kidneys and urinary bladder were obtained. COMPARISON: CT scan of the abdomen pelvis performed on 02/13/2024. FINDINGS: The right kidney measures 14.2 cm in length. The right renal echotexture, contour and cortical thickn ess are within normal limits. No hydronephrosis or large masses/calculi are seen. There is a cyst in the upper pole measuring 2.9 x 2.7 x 2.1 cm. Nonobstructing stone in the midpole measuring 0.4 cm. The left kidney measures 13.4 cm in length. The left renal echotexture, contour, and cortical thickne ss are within normal limits. No hydronephrosis or large masses/calculi are seen. Previously demonstr ated left renal pelvic stone on prior CT is not visualized. No echogenic intraluminal masses are seen in the bladder. No urinary bladder wall abnormality. Bilat eral ureteral jets are not visualized Prevoid residual measures 97 cc. IMPRESSION: 1. Right renal cyst measuring 2.9 cm. Nonobstructing right intrarenal calculus. 2. Previously characterized left renal pelvic stone seen on recent CT is not visualized.
--- NOTE | 2024-02-15 11:30 | DVHINCON2 ---
Date of service: Feb 15, 2024 Referring Physician Heber Hernandez NP Reason for Consultation Acute kidney injury History of Present Illness Patient is a 78-year-old obese male with past medical history significant for HTN, HLD, CA, [place] s/p CABG, CAD, UTI, kidney stones and Parkinson disease who was admitted for difficulty urinating dysuria and flank pain. During his hospital stay patient noted to have increasing BUN and creatinine nephrology is consulted for acute kidney injury Past Medical History HTN, HLD, [place], [place], CAD, UTI, and kidney stone Parkinson's disease Past Surgical History CABG mitral valve replacement Bilateral total knee arthroplasty Allergies: Coded Allergies: Ciprofloxacin (Verified Allergy, Mild, oral blisters and rash, 10/06/20) Sulfa Antibiotics (Verified Allergy, Unknown, 09/07/23) Home Meds Active Scripts Warfarin Sodium (Warfarin Sodium) 4 Mg Tab, 1 TAB PO DAILY, #30 Prov:REFUGIO WIN Pharmacist 05/07/20 Reported Medications Carbidopa-Levodopa (Rytary 48.75-195 mg) 1 Cap Cap, 1 CAP PO, CAP 02/14/24 Duloxetine Hcl (Cymbalta) 60 Mg Cap, 1 CAP PO DAILY, #90 CAP 3 Refills 02/14/24 Carbidopa-Levodopa (Rytary 36.25-145 mg) 1 Cap Cap, 2 CAP PO QID for PARKINSONS, CAP 07/25/23 Baclofen (Baclofen) 10 Mg Tab, 10 MG PO DAILY for BACK PAIN 06/22/22 Hydrocodone-Acetaminophen (Hydrocodone Bitartrate/AC 10-325 mg) 1 Tab Tab, 1 TAB PO DAILY for PAIN, TAB 06/22/22 Aspirin (Aspir-Low) 81 Mg Tab, 81 MG PO HS for CARDIAC 06/22/22 Clopidogrel Bisulfate (Plavix) 75 Mg Tab, 75 MG PO DAILY for BLOOD THINNER 10/06/20 Lovastatin (Lovastatin) 40 Mg Tab, 1 TAB PO DAILY for CHOLESTEROL 05/04/20 Current Medications Current Medications Medications (Trade) Dose Ordered Sig/Desmond Route PRN Reason Start Time Stop Time Status Last Admin Dextrose/Sodium Chloride 1,000 ml @ 100 mls/hr Q10H IV 02/15/24 09:30 Family History: Cancer FH: breast cancer G8 SISTER FH: lung cancer G8 FATHER Family history: Cardiovascular disease G8 MOTHER Family history: Diabetes mellitus G8 BROTHER Review of Systems All 12 item review of systems reviewed with the patient nonsignificant except what is mentioned in the history of present illness H&P Exam Vital Signs/I&O Vital Sign Date Time Temp Pulse Resp B/P (MAP) Pulse Ox O2 Delivery O2 Flow Rate FiO2 02/15/24 08:00 72 18 95 Room Air* 0 21 02/15/24 05:00 98.1 120/67 (84) 98.1 Intake and Output 02/14/24 02/15/24 19:00 07:00 Intake Total 405 ml 240 ml Output Total 1500 ml 500 ml Balance -1095 ml -260 ml Intake Oral 355 ml 240 ml IV Total 50 ml Output Urine Total 1500 ml 500 ml # Voids 4 Physical Exam Patient is awake alert, appears in no acute distress Lungs bibasilar crackles Cardiac exam regular rate and rhythm GI soft bowel sounds are present urinary retention Extremities no clubbing cyanosis or edema Neuro nonfocal Labs/Diagnostic Data Labs/Diagnostic Data Laboratory Tests Test 02/15/24 05:35 02/15/24 05:32 02/14/24 13:50 02/14/24 11:00 Range/Units White Blood Count 2.0 L 1.9 #L 4.4-10.8 10^3/uL Red Blood Count 3.95 L 3.75 L 4.5-5.90 10^6/uL Hemoglobin 11.9 L 11.6 #L 13.5-17.5 g/dL Hematocrit 34.9 L 33.1 #L 41.0-53.0 % Mean Corpuscular Volume 88.5 88.3 80.0-100.0 fL Mean Corpuscular Hemoglobin 30.1 31.1 28.0-32.0 pg Mean Corpuscular Hemoglobin Concent 34.1 35.2 32.0-36.0 g/dL Red Cell Distribution Width 13.9 13.8 11.8-14.3 % Platelet Count 80 L 64 L 140-450 10^3/uL Mean Platelet Volume 8.4 8.0 6.9-10.8 fL Neutrophils (%) (Auto) 37.0-80.0 % Lymphocytes (%) (Auto) 10.0-50.0 % Monocytes (%) (Auto) 0.0-12.0 % Basophils (%) (Auto) 0.0-2.0 % Neutrophils # (Auto) 1.6-8.6 10 ^3/uL Lymphocytes # (Auto) 0.4-5.4 10 ^3/uL Monocytes # (Auto) 0-1.3 10 ^3/uL Differential Total Cells Counted 100.0 100.0 100 Neutrophils % (Manual) 49 49 37.0-80.0 Band Neutrophils % (Manual) 0 0 Lymphocytes % (Manual) 41 46 10.0-50.0 Monocytes % (Manual) 10 5 0-12 Eosinophils % (Manual) 0 0 0-7 Basophils % (Manual) 0 0 0.0-2.0 Metamyelocytes % (manual) 0 0 Myelocytes % (Manual) 0 0 Promyelocytes % (Manual) 0 0 Blast Cells % (Manual) 0 0 Reactive Lymphocytes 0 0 Platelet Estimate Decreased Decreased Prothrombin Time 32.4 H 44.2 H 9.3-11.8 sec Prothrombin Time INR 3.34 H 4.67 *H 0.9-1.15 Activated Partial Thromboplast Time 42.2 H 48.1 H 24.5-34.5 SEC Sodium Level 136 136-145 mmol/L Potassium Level 4.1 3.5-5.1 mmol/L Chloride Level 103 98-107 mmol/L Carbon Dioxide Level 23 20-31 mmol/L Anion Gap 10 5-15 Blood Urea Nitrogen 51 #H 9-23 mg/dL Creatinine 3.82 #H 0.700-1.30 mg/dL Glomerular Filtration Rate Calc 15 >90 mL/min BUN/Creatinine Ratio 13.4 10.0-20.0 Serum Glucose 90 74-106 mg/dL Calcium Level 9.3 8.7-10.4 mg/dL Reticulocyte Count (auto) 1.11 0.5-1.5 % Haptoglobin 96 34-355 mg/dL Test 02/13/24 09:34 02/13/24 09:15 Range/Units White Blood Count 2.7 L 4.4-10.8 10^3/uL Red Blood Count 4.47 L 4.5-5.90 10^6/uL Hemoglobin 13.8 13.5-17.5 g/dL Hematocrit 39.6 L 41.0-53.0 % Mean Corpuscular Volume 88.6 80.0-100.0 fL Mean Corpuscular Hemoglobin 31.0 28.0-32.0 pg Mean Corpuscular Hemoglobin Concent 34.9 32.0-36.0 g/dL Red Cell Distribution Width 14.2 11.8-14.3 % Platelet Count 88 L 140-450 10^3/uL Mean Platelet Volume 8.0 6.9-10.8 fL Neutrophils (%) (Auto) 37.0-80.0 % Lymphocytes (%) (Auto) 10.0-50.0 % Monocytes (%) (Auto) 0.0-12.0 % Basophils (%) (Auto) 0.0-2.0 % Neutrophils # (Auto) 1.6-8.6 10 ^3/uL Lymphocytes # (Auto) 0.4-5.4 10 ^3/uL Monocytes # (Auto) 0-1.3 10 ^3/uL Differential Total Cells Counted 100.0 100 Neutrophils % (Manual) 48 37.0-80.0 Band Neutrophils % (Manual) 0 Lymphocytes % (Manual) 46 10.0-50.0 Monocytes % (Manual) 6 0-12 Eosinophils % (Manual) 0 0-7 Basophils % (Manual) 0 0.0-2.0 Metamyelocytes % (manual) 0 Myelocytes % (Manual) 0 Promyelocytes % (Manual) 0 Blast Cells % (Manual) 0 Reactive Lymphocytes 0 Platelet Estimate Decreased Prothrombin Time 41.4 H 9.3-11.8 sec Prothrombin Time INR 4.36 *H 0.9-1.15 Activated Partial Thromboplast Time 39.9 H 24.5-34.5 SEC Sodium Level 137 136-145 mmol/L Potassium Level 4.1 3.5-5.1 mmol/L Chloride Level 104 98-107 mmol/L Carbon Dioxide Level 23 20-31 mmol/L Anion Gap 10 5-15 Blood Urea Nitrogen 25 H 9-23 mg/dL Creatinine 1.63 H 0.700-1.30 mg/dL Glomerular Filtration Rate Calc 42 >90 mL/min BUN/Creatinine Ratio 15.3 10.0-20.0 Serum Glucose 139 H 74-106 mg/dL Calcium Level 10.4 8.7-10.4 mg/dL Total Bilirubin 1.2 H 0.2-1.0 mg/dL Aspartate Amino Transferase (AST) 10 L 13-40 U/L Alanine Aminotransferase (ALT) < 9 7-40 U/L Alkaline Phosphatase 66 46-116 U/L Total Protein 7.0 5.7-8.2 g/dL Albumin 4.3 3.2-4.8 g/dL Urine Color [place] H Yellow Urine Clarity Ex.turbid Clear Urine pH 5.5 5.0-9.0 Urine Specific [place] 1.022 1.001-1.035 Urine Protein 3+ H Negative Urine Ketones Trace Negative Urine Blood 3+ H Negative /uL Urine Nitrite Negative Negative Urine Bilirubin Negative Negative Urine Urobilinogen 2 H Negative mg/dL Urine Leukocyte Esterase 3+ Negative /uL Urine RBC 137 0 - 3 /hpf Urine WBC 907 0 - 3 /hpf Urine WBC Clumps Present None Seen /hpf Urine Squamous Epithelial Cells None seen <5 /hpf Urine Bacteria None seen None Seen /hpf Urine Hyaline Casts Mod 0 - 2 /lpf Urine Granular Casts Many 0 /lpf Urine Mucus Few None Seen Urine Yeast (Budding) Occasional None Seen /hpf Urine Glucose Normal Normal mg/dL Microbiology Date/Time Source Procedure Growth Status 02/13/24 09:15 Voided Urine Urine Culture - Final Escherichia coli Complete Assessment Acute kidney injury superimposed 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 I discussed my plan of care with the patient and the primary nurse at the bedside I would like to thank Heber for the consult, will follow up Plan discussed with: Patient CHAVA KOHLI MD Feb 15, 2024 11:30
[2024-02-15 11:38] LABS: Magnesium 2.3 mg/dL (1.6-2.6)
[2024-02-15 11:44] LABS: Uric Acid 8.8 mg/dL (3.7-9.2)
[2024-02-15] MEDS: PHYTONADIONE (VIT K)10 MG/ML 1ML VIAL SUBCUT ONE (11:57)
[2024-02-15] MEDS: D5W/SOD CHLO 0.9% 1,000 ML IV SCH (11:58)
--- NOTE | 2024-02-15 13:25 | DVH ---
EXAM: XY CHEST PORTABLE Indication:chf Technique: Single frontal view of the chest was obtained Comparison: XY CHEST PORTABLE on DOS: 09/17/23, XY CHEST PORTABLE on DOS: 09/08/23, XY CHEST PORTABLE on DOS: 03/18/23, XY CHEST PORTABLE on DOS: 11/14/22, XY CHEST XRAY 1 VIEW on DOS: 06/17/22 FINDINGS: Lines and Tubes: None Lungs: No focal consolidation. Pleura: No effusion. No pneumothorax. Cardiomediastinal contours: Cardiomegaly. Bones: No acute osseous abnormality. IMPRESSION: Cardiomegaly. No acute cardiopulmonary disease.
[2024-02-15 14:47] LABS: Creatinine, Urine 175.39 mg/dL (30.0-125.0)
[2024-02-15 14:49] LABS: Protein, Urine 326.1 mg/dL (1-14); Urine Protein/Creatinine Ratio 1.86
--- NOTE | 2024-02-15 16:18 | DVH ---
Exam: CT CT AB PEL WO CON-NO ORAL OR IV History: Ureteral obstruction Comparison Study: CT CT AB PEL WO CON-NO ORAL OR IV on DOS: 02/13/24, CT CT AB PEL WO CON-NO ORAL OR IV on DOS: 06/17/22, [facility] on DOS: 01/18/22, CT ABD PELVIS WO CONTRAST on DOS: 09/21/20 Technique: Multidetector spiral CT of the abdomen and pelvis was performed from lung bases to pubic symphysis. Imaging was performed without IV contrast. Axial, coronal and sagittal multiplanar reform ats were obtained from the axial data set by the technologist. Radiation dose : Abdomen/Pelvis: CTDIvol 19.27 mGy, DLP 1109.98 mGy*cm. Findings: Evaluation of solid organs is limited due to lack of intravenous contrast use. Lung Bases: No acute or significant lung base finding. Normal heart size. No pleural or pericardial effusion. Liver: The liver is normal in size. No focal lesions. Gallbladder and biliary Tree: Unremarkable Spleen: Several hypodensities in the spleen, largest measuring up to 17mm. Pancreas: The pancreas is grossly normal in appearance. Adrenal Glands: Unremarkable Kidneys: There is a calculus in the left renal pelvis measuring up to 7mm associated with mild hydron ephrosis. There is a right renal cyst. Bladder: Small amount of air in the bladder. Bowel: The stomach is grossly normal in appearance. Small bowel and colon are normal in caliber and d istribution. The appendix is not visualized; however, no secondary findings of acute appendicitis id entified. Sigmoid diverticulosis noted. Ascites: Absent Lymphadenopathy: No mesenteric, retroperitoneal or periportal lymphadenopathy. Abdominal wall and Mesentery: Unremarkable. Vasculature: Infrarenal abdominal aortic aneurysm measuring up to 34mm. Diffuse calcified atheroscler otic disease. Pelvic Organs: Unremarkable Musculoskeletal: No aggressive focal bony lesions, acute fractures or dislocation. IMPRESSION: 1. Left renal pelvic calculus measuring up to 7mm associated with mild hydronephrosis. Infrarenal abd ominal aortic aneurysm measuring up to 34 mm. Air in the bladder of unclear significance. Diverticulo sis. Hypodensities in the spleen are nonspecific. Findings are not significantly changed compared to prior exam. Radiation optimization: All CT scans at this facility use at least one of these dose optimization butch hniques: Automated exposure control mA and/or kV adjustment per patient size (includes targeted exams where dose is matched to clinical indication) or iterative reconstruction. HS:Y
[2024-02-16] VITALS (9 sets, daily range): BP systolic 126–155; BP diastolic 60–88; PULSE 72–77; RESP 17–20; TEMP 97.5–98.1; O2SAT 93–97
[2024-02-16 06:59] LABS: Hematocrit 34.2 % (41.0-53.0); Hemoglobin 11.8 g/dL (13.5-17.5); Mean Corpuscular Hemoglobin 30.6 pg (28.0-32.0); Mean Corpuscular Hgb Conc. 34.5 g/dL (32.0-36.0); Mean Corpuscular Volume 88.6 fL (80.0-100.0); Platelet Count (auto) 84 10^3/uL (140-450); Red Blood Cells 3.86 10^6/uL (4.5-5.90); Red Cell Distribution Width 13.4 % (11.8-14.3); White Blood Cell 2.1 10^3/uL (4.4-10.8)
[2024-02-16 07:04] LABS: INR 1.32 (0.9-1.15); Partial Thromboplastin Time 30.8 SEC (24.5-34.5); Prothrombin Time 13.7 sec (9.3-11.8)
[2024-02-16 07:17] LABS: Band Neutrophils % (manual) 0; Basophils % (manual) 0 (0.0-2.0); Blast Cells 0; Eosinophils % (manual) 0 (0-7); Metamyelocytes % 0; Myelocytes % 0; Promyelocytes % 0; Reactive Lymphocytes 0
[2024-02-16 07:30] LABS: Albumin 3.5 g/dL (3.2-4.8); Alkaline Phosphatase 59 U/L (46-116); Anion Gap 11 (5-15); Aspartate Aminotransferase < 8 U/L (13-40); BUN/Creatinine Ratio 13.8 (10.0-20.0); Bilirubin, Total 0.5 mg/dL (0.2-1.0); Calcium 9.1 mg/dL (8.7-10.4); Carbon Dioxide 21 mmol/L (20-31); Chloride 103 mmol/L (98-107); Glucose 97 mg/dL (74-106); Potassium 4.3 mmol/L (3.5-5.1); Sodium 135 mmol/L (136-145); Total Protein 5.9 g/dL (5.7-8.2)
[2024-02-16 07:36] LABS: Alanine Aminotransferase < 9 U/L (7-40); Blood Urea Nitrogen 62 mg/dL (9-23)
[2024-02-16 07:52] LABS: Lymphocytes % (manual) 45 (10.0-50.0); Monocytes % (manual) 6 (0-12); Platelet Estimate Decreased
--- NOTE | 2024-02-16 08:48 | DVHPN2 ---
Progress Note - Dictate Date Seen: Feb 16, 2024 Has the PT tested + for MRSA If YES, has PT been informed?: No Medical Necessity Reason Pt with a Central, PICC or Fol: Yes The following are medically ne: Wang Catheter Medical Necessity Reason E coli UTI 8 mm left UPJ stone with mild hydronephrosis Azotemia with rising creatinine vital signs Vital Sign Date Time Temp Pulse Resp B/P (MAP) Pulse Ox O2 Delivery O2 Flow Rate FiO2 02/16/24 07:28 97 Room Air 0.0 02/16/24 07:28 21 02/16/24 05:00 97.5 72 18 136/65 (88) 97.5 Total Intake and Output 02/15/24 02/15/24 02/16/24 15:00 23:00 07:00 Intake Total 640 ml 0 ml Balance 640 ml 0 ml medications Current Medications Medications Dose Ordered Sig/Desmond Route Start Time Stop Time Status Last Admin Dose Admin Morphine Sulfate 1 mg Q4HPRN PRN IV 02/13/24 13:00 Acetaminophen/ Hydrocodone Bitart 1 tab Q6HPRN PRN PO 02/13/24 13:00 Acetaminophen 500 mg Q8HP PRN PO 02/13/24 13:00 Ondansetron HCl 4 mg Q6HP PRN IV 02/13/24 13:00 Docusate Sodium 100 mg BID PRN PO 02/13/24 13:00 Albuterol 2.5 mg Q4HPRN PRN NEB 02/13/24 13:00 Ipratropium [place] 0.5 mg Q4HPRN PRN NEB 02/13/24 13:00 Ceftriaxone Sodium 50 ml @ 100 mls/hr DAILY@09 IV 02/14/24 09:00 02/15/24 09:45 100 MLS/HR Baclofen 10 mg HS PO 02/13/24 22:00 02/15/24 21:20 10 MG Tamsulosin HCl 0.4 mg QPM PO 02/13/24 18:00 02/15/24 18:56 0.4 MG Patient Own Medication 2,500 mcg DAILY PO 02/14/24 10:00 Pravastatin Sodium 20 mg HS PO 02/13/24 22:00 02/15/24 21:20 20 MG Pregabalin 150 mg BID PO 02/13/24 22:00 02/15/24 21:20 150 MG Dextrose/Sodium Chloride 1,000 ml @ 100 mls/hr Q10H IV 02/15/24 09:30 02/15/24 19:30 100 MLS/HR Patient Own Medication 2 mg QID PO 02/15/24 22:00 laboratory and microbiology Laboratory Tests 02/16/24 05:54 Test 02/16/24 05:54 Range/Units Serum Glucose 97 74-106 mg/dL Assessment/Plan Left renal stone WILLARD E coli UTI Patient's creatinine is rising to above 4.5 and the urine culture shows E coli. We will proceed with cystoscopy with stent placement to alleviate the obstructive uropathy and allow the creatinine to normalize again. Laser lithotripsy will not be performed due to active UTI Plan discussed with: Patient, Other VANESSA FAYE MD Feb 16, 2024 08:48
[2024-02-16] MEDS: cefTRIAXone SOD 1,000 MG VL ONE (09:14)
--- NOTE | 2024-02-16 09:32 | DVHPN2 ---
Progress Note Date Seen: Feb 16, 2024 Has the PT tested + for MRSA If YES, has PT been informed?: No Medical Necessity Reason Pt with a Central, PICC or Fol: Yes The following are medically ne: Wang Catheter Subjective Patient reports: No new complaints Other Systems: Patient seen and examined by myself today in rounds Objective vital signs Vital Sign Date Time Temp Pulse Resp B/P (MAP) Pulse Ox O2 Delivery O2 Flow Rate FiO2 02/16/24 08:46 97.9 75 18 134/88 (103) 97 97.9 02/16/24 07:28 Room Air 0.0 02/16/24 07:28 21 Total Intake and Output 02/15/24 02/15/24 02/16/24 15:00 23:00 07:00 Intake Total 640 ml 0 ml Balance 640 ml 0 ml medications Current Medications Medications Dose Ordered Sig/Desmond Route Start Time Stop Time Status Last Admin Dose Admin Morphine Sulfate 1 mg Q4HPRN PRN IV 02/13/24 13:00 Acetaminophen/ Hydrocodone Bitart 1 tab Q6HPRN PRN PO 02/13/24 13:00 Acetaminophen 500 mg Q8HP PRN PO 02/13/24 13:00 Ondansetron HCl 4 mg Q6HP PRN IV 02/13/24 13:00 Docusate Sodium 100 mg BID PRN PO 02/13/24 13:00 Albuterol 2.5 mg Q4HPRN PRN NEB 02/13/24 13:00 Ipratropium [place] 0.5 mg Q4HPRN PRN NEB 02/13/24 13:00 Ceftriaxone Sodium 50 ml @ 100 mls/hr DAILY@09 IV 02/14/24 09:00 02/16/24 09:14 100 MLS/HR Baclofen 10 mg HS PO 02/13/24 22:00 02/15/24 21:20 10 MG Tamsulosin HCl 0.4 mg QPM PO 02/13/24 18:00 02/15/24 18:56 0.4 MG Patient Own Medication 2,500 mcg DAILY PO 02/14/24 10:00 Pravastatin Sodium 20 mg HS PO 02/13/24 22:00 02/15/24 21:20 20 MG Pregabalin 150 mg BID PO 02/13/24 22:00 02/15/24 21:20 150 MG Dextrose/Sodium Chloride 1,000 ml @ 100 mls/hr Q10H IV 02/15/24 09:30 02/15/24 19:30 100 MLS/HR Patient Own Medication 2 mg QID PO 02/15/24 22:00 Examination: LUNGS:Normal, CVS:Normal, MSK:Normal laboratory and microbiology Laboratory Tests 02/16/24 05:54 Test 02/16/24 05:54 Range/Units Serum Glucose 97 74-106 mg/dL Microbiology Date/Time Source Procedure Growth Status 02/13/24 09:15 Voided Urine Urine Culture - Final Escherichia coli Complete Problem List/Assessment/Plan Problem List/Assessment/Plan Acute kidney injury superimposed Chronic Kidney Disease 3B, secondary to ATN, FeNa > 2% Acute urinary retention Left nonobstructing kidney stone Pyelonephritis E coli urinary tract infection Pancytopenia Cardiomegaly on CXR Prosthetic mitral valve Parkinson's disease Abdominal aortic aneurysm Hyperphosphatemia Recommendations Kidney function worsened today Increased UOP Wang catheter Strict I&Os Renal diet Calcium acetate 667 mg po TIDWM IV antibiotics Urology on board Hematology consult Cardiology consult We will continue to follow Plan discussed with: Patient My Orders My Orders Orders - CHAVA KOHLI MD Procedure Category Date Status Time Insert Wang Catheter ARACELY 02/15/24 In Process 11:19 Comprehensive LAB 02/17/24 Verified Metabolic Panel 05:00 Comprehensive LAB 02/18/24 Verified Metabolic Panel 05:00 Chest Portable XY 02/15/24 Resulted 11:20 CHAVA KOHLI MD Feb 16, 2024 09:32
--- NOTE | 2024-02-16 10:31 | DVHPN2 ---
Subjective Patient continues to report having generalized weakness. Reviewed: Care Plan, H&P, Labs, Medications, Previous Orders Changes from previous H/P or p: No Changes General: Per HPI Eyes: No Pain, No Vision change, No Conjunctivae inflammation, No Eyelid inflammation, No Other, No Redness ENT: No Ear pain, No Ear discharge, No Nose pain, No Nose discharge, No Nose congestion, No Mouth pain, No Mouth swelling, No Throat pain, No Throat swelling, No Other Cardiovascular: No Chest Pain, No Palpitations, No Orthopnea, No Paroxysmal Noc. Dyspnea, No Edema, No Lt Headedness, No Other Respiratory: No Cough, No Dry, No Shortness of breath, No SOB with excertion, No Wheezing, No Hemoptysis, No Pleuritic Pain, No Sputum, No Other Gastrointestinal: Nausea Genitourinary: Dysuria, Hematuria Musculoskeletal: No other, No neck pain, No shoulder pain, No arm pain, No back pain, No hand pain, No leg pain, No foot pain Skin: No Rash, No Lesions, No Jaundice, No Bruising, No Other Objective Vitals Vital Signs Date Time Temp Pulse Resp B/P (MAP) Pulse Ox O2 Delivery O2 Flow Rate FiO2 02/16/24 08:46 97.9 75 18 134/88 (103) 97 97.9 02/16/24 07:28 Room Air 0.0 02/16/24 07:28 21 Intake/Output Intake and Output 02/16/24 07:00 Intake Total 640 ml Balance 640 ml Intake Oral 440 ml IV Total 200 ml General Appearance: Alert, Oriented X3, Cooperative HEENT: Atraumatic, PERRLA Lungs: Clear to auscultation, Normal air movement Cardiovascular: Normal S1, Normal S2 Abdomen: Normal bowel sounds Genitourinary: No Apparent Abnormalities Musculoskeletal: Normal sensory function, Normal motor function Skin: Dry, Intact Psych/Mental Status: Mental status NL, Mood NL Medications Current Medications Medications Dose Ordered Sig/Desmond Route Start Time Stop Time Status Last Admin Dose Admin Morphine Sulfate 1 mg Q4HPRN PRN IV 02/13/24 13:00 Acetaminophen/ Hydrocodone Bitart 1 tab Q6HPRN PRN PO 02/13/24 13:00 Acetaminophen 500 mg Q8HP PRN PO 02/13/24 13:00 Ondansetron HCl 4 mg Q6HP PRN IV 02/13/24 13:00 Docusate Sodium 100 mg BID PRN PO 02/13/24 13:00 Albuterol 2.5 mg Q4HPRN PRN NEB 02/13/24 13:00 Ipratropium Leiter 0.5 mg Q4HPRN PRN NEB 02/13/24 13:00 Ceftriaxone Sodium 50 ml @ 100 mls/hr DAILY@09 IV 02/14/24 09:00 02/16/24 09:14 100 MLS/HR Baclofen 10 mg HS PO 02/13/24 22:00 02/15/24 21:20 10 MG Tamsulosin HCl 0.4 mg QPM PO 02/13/24 18:00 02/15/24 18:56 0.4 MG Patient Own Medication 2,500 mcg DAILY PO 02/14/24 10:00 Pravastatin Sodium 20 mg HS PO 02/13/24 22:00 02/15/24 21:20 20 MG Pregabalin 150 mg BID PO 02/13/24 22:00 02/15/24 21:20 150 MG Dextrose/Sodium Chloride 1,000 ml @ 100 mls/hr Q10H IV 02/15/24 09:30 02/15/24 19:30 100 MLS/HR Patient Own Medication 2 mg QID PO 02/15/24 22:00 Calcium Acetate 667 mg TIDWMEALS PO 02/16/24 12:00 Laboratory Results Laboratory Tests 02/16/24 05:54 Chemistry Test 02/16/24 05:54 Albumin 3.5 g/dL (3.2-4.8) Calcium Level 9.1 mg/dL (8.7-10.4) Total Protein 5.9 g/dL (5.7-8.2) Coagulation Test 02/16/24 05:54 Prothrombin Time 13.7 sec (9.3-11.8) H Prothrombin Time INR 1.32 (0.9-1.15) H Activated Partial Thromboplast Time 30.8 SEC (24.5-34.5) LFT Test 02/16/24 05:54 Alanine Aminotransferase (ALT) < 9 U/L (7-40) Alkaline Phosphatase 59 U/L (46-116) Aspartate Amino Transferase (AST) < 8 U/L (13-40) L Total Bilirubin 0.5 mg/dL (0.2-1.0) Urinalysis Test 02/13/24 09:15 02/15/24 14:15 Urine Color [place] (Yellow) H Urine Clarity Ex.turbid (Clear) Urine pH 5.5 (5.0-9.0) Urine Specific [place] 1.022 (1.001-1.035) Urine Protein 3+ (Negative) H Urine Ketones Trace (Negative) Urine Blood 3+ /uL (Negative) H Urine Nitrite Negative (Negative) Urine Bilirubin Negative (Negative) Urine Urobilinogen 2 mg/dL (Negative) H Urine Leukocyte Esterase 3+ /uL (Negative) Urine RBC 137 /hpf (0 - 3) Urine WBC 907 /hpf (0 - 3) Urine WBC Clumps Present /hpf (None Seen) Urine Squamous Epithelial Cells None seen /hpf (<5) Urine Bacteria None seen /hpf (None Seen) Urine Hyaline Casts Mod /lpf (0 - 2) Urine Granular Casts Many /lpf (0) Urine Mucus Few (None Seen) Urine Yeast (Budding) Occasional /hpf (None Urine Glucose Normal mg/dL (Normal) Urine Creatinine 175.39 mg/dL (30.0-125.0) H Urine Protein/Creatinine Ratio 1.86 Urine Sodium 94 mmol/L (40-220) Urine Total Protein 326.1 mg/dL (1-14) H Microbiology Microbiology Date/Time Source Procedure Growth Status 02/13/24 09:15 Voided Urine Urine Culture - Final Escherichia coli Complete Labs and/or images reviewed: Labs reviewed by me, Image(s) reviewed by me Assessment/Plan Assessment/Plan Impression: -complicated cystitis with E coli -renal calculi -hematuria -pancytopenia -history of prosthetic mitral valve replacement -primary hypertension -Parkinson disease -chronic kidney disease stage 3, acute kidney injury, probable ATN -chronic B-cell lymphoma Plan: -events: Patient's INR and at 1.3. Thrombocytopenia improving with platelets [id number]. Assessed patient in the preop area. Plans for cystoscopy and, questionable lithotripsy, stent placement. -continue Rocephin -urology consultation : Recommendations reviewed -hold anticoagulation, antiplatelet therapy -repeat labs in a.m. -restart carbidopa levodopa Total time spent with patient discussing and formulating plan of care: 35 minutes. This medical document was created using an electronic medical record system with Dragon computerized dictation system. Although this document has been carefully reviewed, there may still be some phonetic and typographical errors. These areas are purely typographical due to imperfections of the software programs, and do not reflect any compromise in the patient's medical care. Plan discussed with: Patient, Son, Other (Rn) My Orders Orders - SHEA GAYTAN NP Procedure Category Date Status Time Bladder US 02/15/24 [facility]24 In Process 22:00 Date of Service: Feb 16, 2024 Billing Provider: SHEA GAYTAN NP Common Visit Codes: [id number] INP/OBS CARE(HIGH) SHEA GAYTAN NP Feb 16, 2024 10:31
[2024-02-16] MEDS: IOHEXOL 300 MG/ML 100ML BOTTLE IJ ONE (11:40)
[2024-02-16] MEDS ORDERED: fentaNYL CITRATE 100 MCG/2 ML VL ONE (11:56)
[2024-02-16] MEDS ORDERED: PROPOFOL 10 MG/ML 20 ML IV ONE (11:56)
--- NOTE | 2024-02-16 12:56 | DVHOP2 ---
Operative Report - 2 Report Details Date: 02/16/24 Preop Diagnosis: Left renal pelvic stone, 8 mm Mild left hydronephrosis Azotemia Urinary tract infection Postop Diagnosis: Same Surgeon: Vanessa Faye Anesthesiologist: Dr. Gil Anesthesia: General Consent: The patient was informed of the risks and benefits of the procedure. These include but are not limited to complications of anesthesia, postoperative infection, incomplete relief of symptoms, recurrence of symptoms, damage to blood vessels, nerves and tendons, deep venous thrombosis, pulmonary embolism and possible need for repeat surgery in the future. Indications for Surgery: Patient with left renal lithiasis and mild hydronephrosis and elevation of creatinine. He has E coli UTI and lithotripsy will not be scheduled until UTI results. He is to undergo stent placement only to manage his azotemia Name of Procedure Performed Cystoscopy with left ureteral stent placement Procedure Details Procedure Details: Patient was taken to the operating room and underwent general anesthesia. He was placed in dorsal lithotomy position with the area of the genitalia prepped and draped in usual sterile manner. Twenty-two [place] rigid cystoscope was used to access the bladder. The left ureteric orifice was identified and cannulated with sensory guidewire. Six [place] by 26 cm polaris loop ureteral stent was then properly placed over the guidewire. Cystoscope was removed in entirety and a Wang catheter was placed. Patient is awakened and taken to recovery room in stable condition. Specimen: None Condition Good Disposition VANESSA FAYE MD Feb 16, 2024 12:56
[2024-02-16] MEDS: ACETAMINOPHEN IV 1000 MG/100ML (10MG/ML) IV ONE (13:17)
[2024-02-16] MEDS: ACETAMINOPHEN IV 100 ML IV ONE (13:23)
--- NOTE | 2024-02-16 13:45 | DVH ---
KUB INDICATION: Stent placement FINDINGS/IMPRESSION: Proximal end of the stent overlies the left renal pelvis. Distal end of the s tent overlies the urinary bladder
--- NOTE | 2024-02-16 14:25 | DVH ---
C-ARM FLUOROSCOPY: PROCEDURE: ureteral stent FLUOROSCOPY TIME: refer to op note
--- NOTE | 2024-02-16 14:25 | DVH ---
C-ARM FLUOROSCOPY: PROCEDURE: ureteral stent FLUOROSCOPY TIME: refer to op note
[2024-02-16] MEDS: CALCIUM ACETATE 667 MG CAP PO SCH (14:26)
[2024-02-17] VITALS (8 sets, daily range): BP systolic 107–158; BP diastolic 53–87; PULSE 65–85; RESP 18–22; TEMP 97.5–98.3; O2SAT 94–97
[2024-02-17 07:14] LABS: Hematocrit 35.4 % (41.0-53.0); Hemoglobin 12.4 g/dL (13.5-17.5); Mean Corpuscular Hemoglobin 30.8 pg (28.0-32.0); Mean Corpuscular Hgb Conc. 35.1 g/dL (32.0-36.0); Mean Corpuscular Volume 87.7 fL (80.0-100.0); Platelet Count (auto) 101 10^3/uL (140-450); Red Blood Cells 4.03 10^6/uL (4.5-5.90); Red Cell Distribution Width 13.5 % (11.8-14.3); White Blood Cell 2.1 10^3/uL (4.4-10.8)
[2024-02-17 07:27] LABS: Albumin 3.8 g/dL (3.2-4.8); Alkaline Phosphatase 64 U/L (46-116); Anion Gap 12 (5-15); Aspartate Aminotransferase < 8 U/L (13-40); BUN/Creatinine Ratio 14.3 (10.0-20.0); Bilirubin, Total 0.5 mg/dL (0.2-1.0); Blood Urea Nitrogen 69 mg/dL (9-23); Calcium 9.3 mg/dL (8.7-10.4); Carbon Dioxide 22 mmol/L (20-31); Chloride 102 mmol/L (98-107); Glucose 108 mg/dL (74-106); Potassium 4.3 mmol/L (3.5-5.1); Sodium 136 mmol/L (136-145); Total Protein 6.1 g/dL (5.7-8.2)
[2024-02-17 07:30] LABS: INR 1.11 (0.9-1.15); Prothrombin Time 11.7 sec (9.3-11.8)
[2024-02-17 07:33] LABS: Alanine Aminotransferase < 9 U/L (7-40)
[2024-02-17 07:47] LABS: Basophils % (manual) 0 (0.0-2.0); Metamyelocytes % 0; Myelocytes % 0; Promyelocytes % 0; Reactive Lymphocytes 0
[2024-02-17] MEDS: MORPHINE SULFATE INJ 2 MG/ml SYRG IV PRN (09:16)
[2024-02-17] MEDS: ENOXAPARIN SOD 100 MG/1 ML SYRINGE SC SCH (09:53)
--- NOTE | 2024-02-17 09:58 | DVHPN2 ---
Subjective Patient continues to report having generalized weakness. Reviewed: Care Plan, H&P, Labs, Medications, Previous Orders Changes from previous H/P or p: No Changes General: Per HPI Eyes: No Pain, No Vision change, No Conjunctivae inflammation, No Eyelid inflammation, No Other, No Redness ENT: No Ear pain, No Ear discharge, No Nose pain, No Nose discharge, No Nose congestion, No Mouth pain, No Mouth swelling, No Throat pain, No Throat swelling, No Other Cardiovascular: No Chest Pain, No Palpitations, No Orthopnea, No Paroxysmal Noc. Dyspnea, No Edema, No Lt Headedness, No Other Respiratory: No Cough, No Dry, No Shortness of breath, No SOB with excertion, No Wheezing, No Hemoptysis, No Pleuritic Pain, No Sputum, No Other Gastrointestinal: Nausea Genitourinary: Dysuria, Hematuria Musculoskeletal: No other, No neck pain, No shoulder pain, No arm pain, No back pain, No hand pain, No leg pain, No foot pain Skin: No Rash, No Lesions, No Jaundice, No Bruising, No Other Objective Vitals Vital Signs Date Time Temp Pulse Resp B/P (MAP) Pulse Ox O2 Delivery O2 Flow Rate FiO2 02/17/24 09:54 67 18 132/61 02/17/24 09:00 97.9 95 97.9 02/16/24 20:00 Room Air* 0 21 Intake/Output Intake and Output 02/17/24 07:00 Intake Total 1220 ml Output Total 250 ml Balance 970 ml Intake Oral 1120 ml IV Total 100 ml Output Urine Total 250 ml # Bowel Movements 2 General Appearance: Alert, Oriented X3, Cooperative HEENT: Atraumatic, PERRLA Lungs: Clear to auscultation, Normal air movement Cardiovascular: Normal S1, Normal S2 Abdomen: Normal bowel sounds Genitourinary: No Apparent Abnormalities Musculoskeletal: Normal sensory function, Normal motor function Skin: Dry, Intact Psych/Mental Status: Mental status NL, Mood NL Medications Current Medications Medications Dose Ordered Sig/Desmond Route Start Time Stop Time Status Last Admin Dose Admin Morphine Sulfate 1 mg Q4HPRN PRN IV 02/13/24 13:00 02/17/24 09:16 1 MG Acetaminophen/ Hydrocodone Bitart 1 tab Q6HPRN PRN PO 02/13/24 13:00 Acetaminophen 500 mg Q8HP PRN PO 02/13/24 13:00 Ondansetron HCl 4 mg Q6HP PRN IV 02/13/24 13:00 Docusate Sodium 100 mg BID PRN PO 02/13/24 13:00 Ceftriaxone Sodium 50 ml @ 100 mls/hr DAILY@09 IV 02/14/24 09:00 02/17/24 09:09 100 MLS/HR Baclofen 10 mg HS PO 02/13/24 22:00 02/16/24 22:44 10 MG Tamsulosin HCl 0.4 mg QPM PO 02/13/24 18:00 02/16/24 18:37 0.4 MG Patient Own Medication 2,500 mcg DAILY PO 02/14/24 10:00 Pravastatin Sodium 20 mg HS PO 02/13/24 22:00 02/16/24 22:44 20 MG Pregabalin 150 mg BID PO 02/13/24 22:00 02/17/24 09:09 150 MG Dextrose/Sodium Chloride 1,000 ml @ 100 mls/hr Q10H IV 02/15/24 09:30 02/17/24 01:30 100 MLS/HR Patient Own Medication 2 mg QID PO 02/15/24 22:00 02/16/24 22:00 2 MG Calcium Acetate 667 mg TIDWMEALS PO 02/16/24 12:00 02/17/24 09:08 667 MG Warfarin Sodium RX PROTOCOL PER PHARMACY PO 02/17/24 09:00 UNV Enoxaparin Sodium 100 mg DAILY SC 02/17/24 10:00 02/17/24 09:53 100 MG Laboratory Results Laboratory Tests 02/17/24 06:35 Chemistry Test 02/17/24 06:35 Albumin 3.8 g/dL (3.2-4.8) Calcium Level 9.3 mg/dL (8.7-10.4) Total Protein 6.1 g/dL (5.7-8.2) Coagulation Test 02/17/24 06:35 Prothrombin Time 11.7 sec (9.3-11.8) Prothrombin Time INR 1.11 (0.9-1.15) Activated Partial Thromboplast Time 28.0 SEC (24.5-34.5) LFT Test 02/17/24 06:35 Alanine Aminotransferase (ALT) < 9 U/L (7-40) Alkaline Phosphatase 64 U/L (46-116) Aspartate Amino Transferase (AST) < 8 U/L (13-40) L Total Bilirubin 0.5 mg/dL (0.2-1.0) Urinalysis Test 02/13/24 09:15 02/15/24 14:15 Urine Color [place] (Yellow) H Urine Clarity Ex.turbid (Clear) Urine pH 5.5 (5.0-9.0) Urine Specific [place] 1.022 (1.001-1.035) Urine Protein 3+ (Negative) H Urine Ketones Trace (Negative) Urine Blood 3+ /uL (Negative) H Urine Nitrite Negative (Negative) Urine Bilirubin Negative (Negative) Urine Urobilinogen 2 mg/dL (Negative) H Urine Leukocyte Esterase 3+ /uL (Negative) Urine RBC 137 /hpf (0 - 3) Urine WBC 907 /hpf (0 - 3) Urine WBC Clumps Present /hpf (None Seen) Urine Squamous Epithelial Cells None seen /hpf (<5) Urine Bacteria None seen /hpf (None Seen) Urine Hyaline Casts Mod /lpf (0 - 2) Urine Granular Casts Many /lpf (0) Urine Mucus Few (None Seen) Urine Yeast (Budding) Occasional /hpf (None Urine Glucose Normal mg/dL (Normal) Urine Creatinine 175.39 mg/dL (30.0-125.0) H Urine Protein/Creatinine Ratio 1.86 Urine Sodium 94 mmol/L (40-220) Urine Total Protein 326.1 mg/dL (1-14) H Microbiology Microbiology Date/Time Source Procedure Growth Status 02/13/24 09:15 Voided Urine Urine Culture - Final Escherichia coli Complete Labs and/or images reviewed: Labs reviewed by me, Image(s) reviewed by me Assessment/Plan Assessment/Plan Impression: -complicated cystitis with E coli -renal calculi -hematuria -pancytopenia -history of prosthetic mitral valve replacement -primary hypertension -Parkinson disease -chronic kidney disease stage 3, acute kidney injury, probable ATN -chronic B-cell lymphoma Plan: -events: Patient postop day one with cystoscopy and ureter stent placement. Worsening renal function. Thrombocytopenia improving. -start bridge therapy with Coumadin and Lovenox -nephrology consultation, recommendations appreciated -continue Rocephin -urology consultation : Recommendations reviewed -repeat labs in a.m. -continue carbidopa levodopa Total time spent with patient discussing and formulating plan of care: 35 minutes. This medical document was created using an electronic medical record system with [employer] dictation system. Although this document has been carefully reviewed, there may still be some phonetic and typographical errors. These areas are purely typographical due to imperfections of the software programs, and do not reflect any compromise in the patient's medical care. Plan discussed with: Patient, Other (RN) My Orders Orders - SHEA GAYTAN NP Procedure Category Date Status Time Dietary NOTICE 02/16/24 Transmitted Recommendations 14:40 Complete Blood Count LAB 02/17/24 In Process 04:00 Manual Differential LAB 02/17/24 In Process 06:35 Warfarin Per Rx PHA 02/17/24 Logged Protocol (Coumadin 09:00 Enoxaparin Sodium PHA 02/17/24 In Process (Lovenox) 10:00 Basic Metabolic Panel LAB 02/19/24 Verified 04:00 Complete Blood Count LAB 02/18/24 Verified 05:00 Complete Blood Count LAB 02/19/24 Verified 05:00 Date of Service: Feb 17, 2024 Billing Provider: SHEA GAYTAN NP Common Visit Codes: [id number] INP/OBS CARE(HIGH) SHEA GAYTAN NP Feb 17, 2024 09:58
[2024-02-17 10:39] LABS: Band Neutrophils % (manual) 3; Blast Cells 2; Eosinophils % (manual) 5 (0-7); Lymphocytes % (manual) 34 (10.0-50.0); Monocytes % (manual) 23 (0-12); Platelet Estimate Decreased
--- NOTE | 2024-02-17 14:05 | DVHPN2 ---
Progress Note Date Seen: Feb 17, 2024 Has the PT tested + for MRSA If YES, has PT been informed?: No Medical Necessity Reason Pt with a Central, PICC or Fol: Yes The following are medically ne: Wang Catheter Subjective Review of Systems Pt resting, in no acute distress. Patient reports: No new complaints Objective vital signs Vital Sign Date Time Temp Pulse Resp B/P (MAP) Pulse Ox O2 Delivery O2 Flow Rate FiO2 02/17/24 09:54 67 18 132/61 02/17/24 09:00 97.9 95 97.9 02/16/24 20:00 Room Air* 0 21 Total Intake and Output 02/16/24 02/16/24 02/17/24 15:00 23:00 07:00 Intake Total 450 ml 470 ml 300 ml Output Total 100 ml 150 ml Balance 450 ml 370 ml 150 ml medications Current Medications Medications Dose Ordered Sig/Desmond Route Start Time Stop Time Status Last Admin Dose Admin Morphine Sulfate 1 mg Q4HPRN PRN IV 02/13/24 13:00 02/17/24 09:16 1 MG Acetaminophen/ Hydrocodone Bitart 1 tab Q6HPRN PRN PO 02/13/24 13:00 Acetaminophen 500 mg Q8HP PRN PO 02/13/24 13:00 Ondansetron HCl 4 mg Q6HP PRN IV 02/13/24 13:00 Docusate Sodium 100 mg BID PRN PO 02/13/24 13:00 Ceftriaxone Sodium 50 ml @ 100 mls/hr DAILY@09 IV 02/14/24 09:00 02/17/24 09:09 100 MLS/HR Baclofen 10 mg HS PO 02/13/24 22:00 02/16/24 22:44 10 MG Tamsulosin HCl 0.4 mg QPM PO 02/13/24 18:00 02/16/24 18:37 0.4 MG Patient Own Medication 2,500 mcg DAILY PO 02/14/24 10:00 Pravastatin Sodium 20 mg HS PO 02/13/24 22:00 02/16/24 22:44 20 MG Pregabalin 150 mg BID PO 02/13/24 22:00 02/17/24 09:09 150 MG Dextrose/Sodium Chloride 1,000 ml @ 100 mls/hr Q10H IV 02/15/24 09:30 02/17/24 01:30 100 MLS/HR Patient Own Medication 2 mg QID PO 02/15/24 22:00 02/17/24 12:24 2 MG Calcium Acetate 667 mg TIDWMEALS PO 02/16/24 12:00 02/17/24 12:23 667 MG Warfarin Sodium RX PROTOCOL PER PHARMACY PO 02/17/24 09:00 Enoxaparin Sodium 100 mg DAILY SC 02/17/24 10:00 02/17/24 09:53 100 MG Examination Gen: Appears stated age, in no acute distress. 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-ongoing Acute urinary retention Left nonobstructing kidney stone Pyelonephritis E coli urinary tract infection Pancytopenia Prosthetic mitral valve Parkinson's disease Abdominal aortic aneurysm s/p L ureteral stent Recommendations Serial chemistry panels Continue to closely monitor fluid and electrolytes Avoid nephrotoxic medications Wang catheter Strict I&Os Continue IV antibiotics Urology onboard- s/p L ureteral stent We will continue to follow Plan discussed with: Patient Dietary Evaluation Review Comments: 1) Consider a Renal Specific K2,low phos,ROCÍO,2gmNa,80g Pro diet 2) Continue current plan of care Expected Outcomes/Goals: 1) Pt labs to improve BRUNO PITTMAN Feb 17, 2024 14:04
--- NOTE | 2024-02-17 17:40 | DVHPN2 ---
Progress Note - Dictate Date Seen: Feb 17, 2024 Has the PT tested + for MRSA If YES, has PT been informed?: No Medical Necessity Reason Pt with a Central, PICC or Fol: Yes The following are medically ne: Osullivan Catheter Reason for osullivan catheter: Bladder Retention/Obstruc, Strict I&O vital signs Vital Sign Date Time Temp Pulse Resp B/P (MAP) Pulse Ox O2 Delivery O2 Flow Rate FiO2 02/17/24 09:54 67 18 132/61 02/17/24 09:00 97.9 95 97.9 02/16/24 20:00 Room Air* 0 21 Total Intake and Output 02/16/24 02/16/24 02/17/24 15:00 23:00 07:00 Intake Total 450 ml 470 ml 300 ml Output Total 100 ml 150 ml Balance 450 ml 370 ml 150 ml medications Current Medications Medications Dose Ordered Sig/Desmond Route Start Time Stop Time Status Last Admin Dose Admin Morphine Sulfate 1 mg Q4HPRN PRN IV 02/13/24 13:00 02/17/24 09:16 1 MG Acetaminophen/ Hydrocodone Bitart 1 tab Q6HPRN PRN PO 02/13/24 13:00 Acetaminophen 500 mg Q8HP PRN PO 02/13/24 13:00 Ondansetron HCl 4 mg Q6HP PRN IV 02/13/24 13:00 Docusate Sodium 100 mg BID PRN PO 02/13/24 13:00 Ceftriaxone Sodium 50 ml @ 100 mls/hr DAILY@09 IV 02/14/24 09:00 02/17/24 09:09 100 MLS/HR Baclofen 10 mg HS PO 02/13/24 22:00 02/16/24 22:44 10 MG Tamsulosin HCl 0.4 mg QPM PO 02/13/24 18:00 02/16/24 18:37 0.4 MG Patient Own Medication 2,500 mcg DAILY PO 02/14/24 10:00 Pravastatin Sodium 20 mg HS PO 02/13/24 22:00 02/16/24 22:44 20 MG Pregabalin 150 mg BID PO 02/13/24 22:00 02/17/24 09:09 150 MG Dextrose/Sodium Chloride 1,000 ml @ 100 mls/hr Q10H IV 02/15/24 09:30 02/17/24 01:30 100 MLS/HR Patient Own Medication 2 mg QID PO 02/15/24 22:00 02/17/24 12:24 2 MG Calcium Acetate 667 mg TIDWMEALS PO 02/16/24 12:00 02/17/24 12:23 667 MG Warfarin Sodium RX PROTOCOL PER PHARMACY PO 02/17/24 09:00 Enoxaparin Sodium 100 mg DAILY SC 02/17/24 10:00 02/17/24 09:53 100 MG laboratory and microbiology Laboratory Tests 02/17/24 06:35 Test 02/17/24 06:35 Range/Units Serum Glucose 108 H 74-106 mg/dL Problems(with codes): (1) Hydronephrosis, right (2) Obstructive uropathy (3) Abnormal INR (4) UTI (urinary tract infection) (5) History of coronary artery bypass graft (6) History of artificial heart valve (7) Abdominal aortic aneurysm (AAA) 3.0 cm to 5.5 cm in diameter in male (8) Supratherapeutic INR (9) WILLARD (acute kidney injury) (10) CHF (congestive heart failure) Prognosis fair Dietary Evaluation Review Comments: 1) Consider a Renal Specific K2,low phos,ROCÍO,2gmNa,80g Pro diet 2) Continue current plan of care Expected Outcomes/Goals: 1) Pt labs to improve Plan discussed with: MARGIE Whitley NP Feb 17, 2024 17:40
[2024-02-17] MEDS: WARFARIN SODIUM 2.5 MG TAB PO ONE (17:44)
--- NOTE | 2024-02-17 18:52 | DVH ---
INDICATION: Hydronephrosis. TECHNIQUE: Multiple real-time sonographic images of the kidneys and bladder were obtained. COMPARISON: US KIDNEY on DOS: 02/15/24 FINDINGS: RIGHT kidney measures 12.70 cm in length. 6 mm nonobstructing calculus. 2.1 x 2.2 x 1.6 cm anechoic mass upper pole right kidney most likely simple cyst No hydronephrosis. LEFT kidney measures 15.49 cm in length. No hydronephrosis. Wang catheter in the bladder in the bladder is decompressed. IMPRESSION: 1. 12.78 cm right kidney with no hydronephrosis. 2. Findings suggest 2 6 mm nonobstructing calculus upper pole right kidney 3. 2.1 x 2.2 cm cyst upper pole right kidney. 4. Left kidney measures 15.5 cm no hydronephrosis 5. Study is CAROC compared to previous renal ultrasound of 02/15/2024.
[2024-02-18] VITALS (8 sets, daily range): BP systolic 127–147; BP diastolic 55–92; PULSE 57–66; RESP 16–20; TEMP 97.3–98.1; O2SAT 92–96
[2024-02-18 06:59] LABS: Hematocrit 30.5 % (41.0-53.0); Hemoglobin 10.9 g/dL (13.5-17.5); Mean Corpuscular Hemoglobin 30.8 pg (28.0-32.0); Mean Corpuscular Hgb Conc. 35.7 g/dL (32.0-36.0); Mean Corpuscular Volume 86.5 fL (80.0-100.0); Platelet Count (auto) 91 10^3/uL (140-450); Red Blood Cells 3.53 10^6/uL (4.5-5.90); Red Cell Distribution Width 13.4 % (11.8-14.3)
[2024-02-18 07:08] LABS: INR 1.05 (0.9-1.15); Prothrombin Time 11.1 sec (9.3-11.8)
[2024-02-18 07:16] LABS: Band Neutrophils % (manual) 0; Basophils % (manual) 0 (0.0-2.0); Blast Cells 0; Metamyelocytes % 0; Myelocytes % 0; Promyelocytes % 0; Reactive Lymphocytes 0; White Blood Cell 1.7 10^3/uL (4.4-10.8)
[2024-02-18 07:20] LABS: Albumin 3.2 g/dL (3.2-4.8); Alkaline Phosphatase 53 U/L (46-116); Anion Gap 11 (5-15); Aspartate Aminotransferase < 8 U/L (13-40); BUN/Creatinine Ratio 11.9 (10.0-20.0); Calcium 8.8 mg/dL (8.7-10.4); Carbon Dioxide 19 mmol/L (20-31); Chloride 104 mmol/L (98-107); Glucose 120 mg/dL (74-106); Potassium 4.3 mmol/L (3.5-5.1); Sodium 134 mmol/L (136-145)
[2024-02-18 07:21] LABS: Bilirubin, Total 0.3 mg/dL (0.2-1.0); Total Protein 5.3 g/dL (5.7-8.2)
[2024-02-18 07:24] LABS: Alanine Aminotransferase < 9 U/L (7-40); Blood Urea Nitrogen 57 mg/dL (9-23)
[2024-02-18 08:23] LABS: Eosinophils % (manual) 5 (0-7); Lymphocytes % (manual) 54 (10.0-50.0); Monocytes % (manual) 8 (0-12); Platelet Estimate Decreased
--- NOTE | 2024-02-18 10:32 | DVHPN2 ---
Subjective Patient is comfortable Has a Wang Urine is clear INR 1.0 Platelets are low at 91 White count is low at 1.7 Creatinine 4.7 Reviewed: Care Plan, H&P, Labs, Medications, Previous Orders Changes from previous H/P or p: Changes General: Per HPI Eyes: No Pain, No Vision change, No Conjunctivae inflammation, No Eyelid inflammation, No Other, No Redness ENT: No Ear pain, No Ear discharge, No Nose pain, No Nose discharge, No Nose congestion, No Mouth pain, No Mouth swelling, No Throat pain, No Throat swelling, No Other Cardiovascular: No Chest Pain, No Palpitations, No Orthopnea, No Paroxysmal Noc. Dyspnea, No Edema, No Lt Headedness, No Other Respiratory: No Cough, No Dry, No Shortness of breath, No SOB with excertion, No Wheezing, No Hemoptysis, No Pleuritic Pain, No Sputum, No Other Gastrointestinal: Nausea Genitourinary: Dysuria, Hematuria Musculoskeletal: No other, No neck pain, No shoulder pain, No arm pain, No back pain, No hand pain, No leg pain, No foot pain Skin: No Rash, No Lesions, No Jaundice, No Bruising, No Other Objective Vitals Vital Signs Date Time Temp Pulse Resp B/P (MAP) Pulse Ox O2 Delivery O2 Flow Rate FiO2 02/18/24 05:00 97.8 65 18 127/78 (94) 95 97.8 02/17/24 20:00 Room Air* 0 21 Intake/Output Intake and Output 02/18/24 07:00 Intake Total 1440 ml Output Total 350 ml Balance 1090 ml Intake Oral 390 ml IV Total 1050 ml Output Urine Total 350 ml # Bowel Movements 1 General Appearance: Alert, Oriented X3, Cooperative HEENT: Atraumatic, PERRLA Lungs: Clear to auscultation, Normal air movement Cardiovascular: Normal S1, Normal S2 Abdomen: Normal bowel sounds Genitourinary: No Apparent Abnormalities Musculoskeletal: Normal sensory function, Normal motor function Skin: Dry, Intact Psych/Mental Status: Mental status NL, Mood NL Medications Current Medications Medications Dose Ordered Sig/Desmond Route Start Time Stop Time Status Last Admin Dose Admin Morphine Sulfate 1 mg Q4HPRN PRN IV 02/13/24 13:00 02/17/24 09:16 1 MG Acetaminophen/ Hydrocodone Bitart 1 tab Q6HPRN PRN PO 02/13/24 13:00 Acetaminophen 500 mg Q8HP PRN PO 02/13/24 13:00 Ondansetron HCl 4 mg Q6HP PRN IV 02/13/24 13:00 Docusate Sodium 100 mg BID PRN PO 02/13/24 13:00 Ceftriaxone Sodium 50 ml @ 100 mls/hr DAILY@09 IV 02/14/24 09:00 02/18/24 08:19 100 MLS/HR Baclofen 10 mg HS PO 02/13/24 22:00 02/17/24 22:05 10 MG Tamsulosin HCl 0.4 mg QPM PO 02/13/24 18:00 02/17/24 17:41 0.4 MG Patient Own Medication 2,500 mcg DAILY PO 02/14/24 10:00 Pravastatin Sodium 20 mg HS PO 02/13/24 22:00 02/17/24 22:04 20 MG Pregabalin 150 mg BID PO 02/13/24 22:00 02/17/24 22:04 150 MG Dextrose/Sodium Chloride 1,000 ml @ 100 mls/hr Q10H IV 02/15/24 09:30 02/18/24 05:47 100 MLS/HR Patient Own Medication 2 mg QID PO 02/15/24 22:00 02/18/24 05:46 2 MG Calcium Acetate 667 mg TIDWMEALS PO 02/16/24 12:00 02/18/24 08:18 667 MG Warfarin Sodium RX PROTOCOL PER PHARMACY PO 02/17/24 09:00 Enoxaparin Sodium 100 mg DAILY SC 02/17/24 10:00 02/17/24 09:53 100 MG Laboratory Results Laboratory Tests 02/18/24 06:30 Chemistry Test 02/18/24 06:30 Albumin 3.2 g/dL (3.2-4.8) Calcium Level 8.8 mg/dL (8.7-10.4) Total Protein 5.3 g/dL (5.7-8.2) L Coagulation Test 02/18/24 06:30 Prothrombin Time 11.1 sec (9.3-11.8) Prothrombin Time INR 1.05 (0.9-1.15) LFT Test 02/18/24 06:30 Alanine Aminotransferase (ALT) < 9 U/L (7-40) Alkaline Phosphatase 53 U/L (46-116) Aspartate Amino Transferase (AST) < 8 U/L (13-40) L Total Bilirubin 0.3 mg/dL (0.2-1.0) Urinalysis Test 02/13/24 09:15 02/15/24 14:15 Urine Color [place] (Yellow) H Urine Clarity Ex.turbid (Clear) Urine pH 5.5 (5.0-9.0) Urine Specific [place] 1.022 (1.001-1.035) Urine Protein 3+ (Negative) H Urine Ketones Trace (Negative) Urine Blood 3+ /uL (Negative) H Urine Nitrite Negative (Negative) Urine Bilirubin Negative (Negative) Urine Urobilinogen 2 mg/dL (Negative) H Urine Leukocyte Esterase 3+ /uL (Negative) Urine RBC 137 /hpf (0 - 3) Urine WBC 907 /hpf (0 - 3) Urine WBC Clumps Present /hpf (None Seen) Urine Squamous Epithelial Cells None seen /hpf (<5) Urine Bacteria None seen /hpf (None Seen) Urine Hyaline Casts Mod /lpf (0 - 2) Urine Granular Casts Many /lpf (0) Urine Mucus Few (None Seen) Urine Yeast (Budding) Occasional /hpf (None Urine Glucose Normal mg/dL (Normal) Urine Creatinine 175.39 mg/dL (30.0-125.0) H Urine Protein/Creatinine Ratio 1.86 Urine Sodium 94 mmol/L (40-220) Urine Total Protein 326.1 mg/dL (1-14) H Microbiology Microbiology Date/Time Source Procedure Growth Status 02/13/24 09:15 Voided Urine Urine Culture - Final Escherichia coli Complete Assessment/Plan Assessment/Plan Complicated UTI with E coli and nephrolithiasis Cholelithiasis Status post left ureteral stent placement Acute kidney injury hemodynamically mediated possible acute tubular necrosis Chronic kidney disease stage III Hypertension History of mitral valve replacement on Coumadin Neutropenia and thrombocytopenia most likely due to sepsis Sepsis Plan UTI: Continue Rocephin IV WILLARD: Continue IV fluids History of mitral valve replacement and atrial fibrillation: Lovenox, Coumadin per pharmacy protocol Nephrology consult Urology is following Flomax Wang catheter Plan discussed with: Patient Date of Service: Feb 18, 2024 Billing Provider: LING LOCKETT MD Common Visit Codes: [id number] INP/OBS CARE(HIGH) LING LOCKETT MD Feb 18, 2024 10:31
--- NOTE | 2024-02-18 13:18 | DVHPN2 ---
Progress Note Date Seen: Feb 18, 2024 Has the PT tested + for MRSA If YES, has PT been informed?: No Medical Necessity Reason Pt with a Central, PICC or Fol: Yes The following are medically ne: Osullivan Catheter Reason for osullivan catheter: Bladder Retention/Obstruc, Strict I&O Subjective Review of Systems Pt resting in bed. In no acute distress Patient reports: No new complaints Objective vital signs Vital Sign Date Time Temp Pulse Resp B/P (MAP) Pulse Ox O2 Delivery O2 Flow Rate FiO2 02/18/24 11:49 61 18 142/66 02/18/24 05:00 97.8 95 97.8 02/17/24 20:00 Room Air* 0 21 Total Intake and Output 02/17/24 02/17/24 02/18/24 15:00 23:00 07:00 Intake Total 50 ml 240 ml 1150 ml Output Total 150 ml 200 ml Balance 50 ml 90 ml 950 ml medications Current Medications Medications Dose Ordered Sig/Desmond Route Start Time Stop Time Status Last Admin Dose Admin Morphine Sulfate 1 mg Q4HPRN PRN IV 02/13/24 13:00 02/18/24 11:49 1 MG Acetaminophen/ Hydrocodone Bitart 1 tab Q6HPRN PRN PO 02/13/24 13:00 Acetaminophen 500 mg Q8HP PRN PO 02/13/24 13:00 Ondansetron HCl 4 mg Q6HP PRN IV 02/13/24 13:00 Docusate Sodium 100 mg BID PRN PO 02/13/24 13:00 Ceftriaxone Sodium 50 ml @ 100 mls/hr DAILY@09 IV 02/14/24 09:00 02/18/24 08:19 100 MLS/HR Baclofen 10 mg HS PO 02/13/24 22:00 02/17/24 22:05 10 MG Tamsulosin HCl 0.4 mg QPM PO 02/13/24 18:00 02/17/24 17:41 0.4 MG Patient Own Medication 2,500 mcg DAILY PO 02/14/24 10:00 Pravastatin Sodium 20 mg HS PO 02/13/24 22:00 02/17/24 22:04 20 MG Pregabalin 150 mg BID PO 02/13/24 22:00 02/18/24 11:47 150 MG Dextrose/Sodium Chloride 1,000 ml @ 100 mls/hr Q10H IV 02/15/24 09:30 02/18/24 05:47 100 MLS/HR Patient Own Medication 2 mg QID PO 02/15/24 22:00 02/18/24 11:48 2 MG Calcium Acetate 667 mg TIDWMEALS PO 02/16/24 12:00 02/18/24 11:47 667 MG Warfarin Sodium RX PROTOCOL PER PHARMACY PO 02/17/24 09:00 Enoxaparin Sodium 100 mg DAILY SC 02/17/24 10:00 02/17/24 09:53 100 MG Examination Gen: Appears stated age, in no acute distress. 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-ongoing stable eGFR 12, slight downtrending in creat 4.78, and BUN 57 will continue to monitor Acute urinary retention Left nonobstructing kidney stone Pyelonephritis E coli urinary tract infection Pancytopenia Prosthetic mitral valve Parkinson's disease Abdominal aortic aneurysm s/p L ureteral stent Recommendations Continue serial chemistry panels Continue to closely monitor fluid and electrolytes Avoid nephrotoxic medications Osullivan catheter Strict I&Os Continue IV antibiotics Urology onboard- s/p L ureteral stent We will continue to follow Plan discussed with: Patient Dietary Evaluation Review Comments: 1) Consider a Renal Specific K2,low phos,ROCÍO,2gmNa,80g Pro diet 2) Continue current plan of care Expected Outcomes/Goals: 1) Pt labs to improve BRUNO PITTMANP Feb 18, 2024 13:18
[2024-02-18] MEDS: WARFARIN SODIUM 2 MG TAB PO ONE (21:54)
[2024-02-19] VITALS (8 sets, daily range): BP systolic 111–132; BP diastolic 55–77; PULSE 57–77; RESP 16–20; TEMP 97.5–99.5; O2SAT 92–99
[2024-02-19 05:35] LABS: Hemoglobin 10.2 g/dL (13.5-17.5)
[2024-02-19 05:37] LABS: Hematocrit 28.6 % (41.0-53.0); Mean Corpuscular Hemoglobin 30.9 pg (28.0-32.0); Mean Corpuscular Hgb Conc. 35.7 g/dL (32.0-36.0); Mean Corpuscular Volume 86.7 fL (80.0-100.0); Platelet Count (auto) 89 10^3/uL (140-450); Red Blood Cells 3.29 10^6/uL (4.5-5.90); Red Cell Distribution Width 13.6 % (11.8-14.3)
[2024-02-19 05:45] LABS: INR 1.04 (0.9-1.15); Partial Thromboplastin Time 29.2 SEC (24.5-34.5)
[2024-02-19 05:51] LABS: Albumin 3.2 g/dL (3.2-4.8); Alkaline Phosphatase 54 U/L (46-116); Anion Gap 9 (5-15); Aspartate Aminotransferase < 8 U/L (13-40); BUN/Creatinine Ratio 17.3 (10.0-20.0); Bilirubin, Total 0.3 mg/dL (0.2-1.0); Calcium 8.8 mg/dL (8.7-10.4); Carbon Dioxide 22 mmol/L (20-31); Chloride 104 mmol/L (98-107); Glucose 111 mg/dL (74-106); Magnesium 2.3 mg/dL (1.6-2.6); Potassium 4.4 mmol/L (3.5-5.1); Sodium 135 mmol/L (136-145); Total Protein 5.3 g/dL (5.7-8.2)
[2024-02-19 05:58] LABS: Alanine Aminotransferase < 9 U/L (7-40)
[2024-02-19 06:01] LABS: Band Neutrophils % (manual) 0; Basophils % (manual) 0 (0.0-2.0); Blast Cells 0; Blood Urea Nitrogen 84 mg/dL (9-23); Metamyelocytes % 0; Myelocytes % 0; Promyelocytes % 0; Reactive Lymphocytes 0; White Blood Cell 1.9 10^3/uL (4.4-10.8)
[2024-02-19 06:35] LABS: Eosinophils % (manual) 4 (0-7); Lymphocytes % (manual) 31 (10.0-50.0); Monocytes % (manual) 31 (0-12)
[2024-02-19 06:36] LABS: Platelet Estimate Decreased
--- NOTE | 2024-02-19 10:42 | DVH ---
CHEST RADIOGRAPH Indication:sepsis Technique: Single frontal view of the chest was obtained COMPARISON: XY CHEST PORTABLE on DOS: 02/15/24, XY CHEST PORTABLE on DOS: 09/17/23, XY CHEST PORTABLE o n DOS: 09/08/23 FINDINGS: Lines and Tubes: Median sternotomy Lungs: Diffuse increased interstitial prominence Pleura: No effusion. No pneumothorax. Cardiomediastinal contours: Cardiomegaly Bones: Unremarkable IMPRESSION: Increased pulmonary vascular congestion or viral pneumonia.
--- NOTE | 2024-02-19 11:05 | DVHPN2 ---
Subjective Slightly more awake today White count is better at 1.9 Platelets 89 Creatinine 4.8, not improved Reviewed: Care Plan, H&P, Labs, Medications, Previous Orders Changes from previous H/P or p: Changes General: Per HPI Eyes: No Pain, No Vision change, No Conjunctivae inflammation, No Eyelid inflammation, No Other, No Redness ENT: No Ear pain, No Ear discharge, No Nose pain, No Nose discharge, No Nose congestion, No Mouth pain, No Mouth swelling, No Throat pain, No Throat swelling, No Other Cardiovascular: No Chest Pain, No Palpitations, No Orthopnea, No Paroxysmal Noc. Dyspnea, No Edema, No Lt Headedness, No Other Respiratory: No Cough, No Dry, No Shortness of breath, No SOB with excertion, No Wheezing, No Hemoptysis, No Pleuritic Pain, No Sputum, No Other Gastrointestinal: Nausea Genitourinary: Dysuria, Hematuria Musculoskeletal: No other, No neck pain, No shoulder pain, No arm pain, No back pain, No hand pain, No leg pain, No foot pain Skin: No Rash, No Lesions, No Jaundice, No Bruising, No Other Objective Vitals Vital Signs Date Time Temp Pulse Resp B/P (MAP) Pulse Ox O2 Delivery O2 Flow Rate FiO2 02/19/24 09:00 97.5 73 16 118/65 (82) 94 97.5 02/19/24 07:45 Room Air* 0 21 Intake/Output Intake and Output 02/19/24 07:00 Intake Total 875 ml Output Total 375 ml Balance 500 ml Intake Oral 825 ml IV Total 50 ml Output Urine Total 375 ml General Appearance: Alert, Oriented X3, Cooperative HEENT: Atraumatic, PERRLA Lungs: Clear to auscultation, Normal air movement Cardiovascular: Normal S1, Normal S2 Abdomen: Normal bowel sounds Genitourinary: No Apparent Abnormalities Musculoskeletal: Normal sensory function, Normal motor function Skin: Dry, Intact Psych/Mental Status: Mental status NL, Mood NL Medications Current Medications Medications Dose Ordered Sig/Desmond Route Start Time Stop Time Status Last Admin Dose Admin Morphine Sulfate 1 mg Q4HPRN PRN IV 02/13/24 13:00 02/19/24 04:02 1 MG Acetaminophen/ Hydrocodone Bitart 1 tab Q6HPRN PRN PO 02/13/24 13:00 Acetaminophen 500 mg Q8HP PRN PO 02/13/24 13:00 Ondansetron HCl 4 mg Q6HP PRN IV 02/13/24 13:00 Docusate Sodium 100 mg BID PRN PO 02/13/24 13:00 Ceftriaxone Sodium 50 ml @ 100 mls/hr DAILY@09 IV 02/14/24 09:00 02/19/24 09:34 100 MLS/HR Baclofen 10 mg HS PO 02/13/24 22:00 02/18/24 21:37 10 MG Tamsulosin HCl 0.4 mg QPM PO 02/13/24 18:00 02/18/24 18:40 0.4 MG Patient Own Medication 2,500 mcg DAILY PO 02/14/24 10:00 Pravastatin Sodium 20 mg HS PO 02/13/24 22:00 02/18/24 21:37 20 MG Pregabalin 150 mg BID PO 02/13/24 22:00 02/19/24 09:35 150 MG Dextrose/Sodium Chloride 1,000 ml @ 100 mls/hr Q10H IV 02/15/24 09:30 02/18/24 21:55 100 MLS/HR Patient Own Medication 2 mg QID PO 02/15/24 22:00 02/19/24 05:39 2 MG Calcium Acetate 667 mg TIDWMEALS PO 02/16/24 12:00 02/18/24 18:40 667 MG Warfarin Sodium RX PROTOCOL PER PHARMACY PO 02/17/24 09:00 Enoxaparin Sodium 100 mg DAILY SC 02/17/24 10:00 02/17/24 09:53 100 MG Laboratory Results Laboratory Tests 02/19/24 04:38 Chemistry Test 02/19/24 04:38 Albumin 3.2 g/dL (3.2-4.8) Calcium Level 8.8 mg/dL (8.7-10.4) Magnesium Level 2.3 mg/dL (1.6-2.6) Total Protein 5.3 g/dL (5.7-8.2) L Coagulation Test 02/19/24 04:38 Prothrombin Time 11.0 sec (9.3-11.8) Prothrombin Time INR 1.04 (0.9-1.15) Activated Partial Thromboplast Time 29.2 SEC (24.5-34.5) LFT Test 02/19/24 04:38 Alanine Aminotransferase (ALT) < 9 U/L (7-40) Alkaline Phosphatase 54 U/L (46-116) Aspartate Amino Transferase (AST) < 8 U/L (13-40) L Total Bilirubin 0.3 mg/dL (0.2-1.0) Urinalysis Test 02/13/24 09:15 02/15/24 14:15 Urine Color [place] (Yellow) H Urine Clarity Ex.turbid (Clear) Urine pH 5.5 (5.0-9.0) Urine Specific [place] 1.022 (1.001-1.035) Urine Protein 3+ (Negative) H Urine Ketones Trace (Negative) Urine Blood 3+ /uL (Negative) H Urine Nitrite Negative (Negative) Urine Bilirubin Negative (Negative) Urine Urobilinogen 2 mg/dL (Negative) H Urine Leukocyte Esterase 3+ /uL (Negative) Urine RBC 137 /hpf (0 - 3) Urine WBC 907 /hpf (0 - 3) Urine WBC Clumps Present /hpf (None Seen) Urine Squamous Epithelial Cells None seen /hpf (<5) Urine Bacteria None seen /hpf (None Seen) Urine Hyaline Casts Mod /lpf (0 - 2) Urine Granular Casts Many /lpf (0) Urine Mucus Few (None Seen) Urine Yeast (Budding) Occasional /hpf (None Urine Glucose Normal mg/dL (Normal) Urine Creatinine 175.39 mg/dL (30.0-125.0) H Urine Protein/Creatinine Ratio 1.86 Urine Sodium 94 mmol/L (40-220) Urine Total Protein 326.1 mg/dL (1-14) H Microbiology Microbiology Date/Time Source Procedure Growth Status 02/13/24 09:15 Voided Urine Urine Culture - Final Escherichia coli Complete Assessment/Plan Assessment/Plan Complicated UTI with E coli and nephrolithiasis Cholelithiasis Status post left ureteral stent placement Acute kidney injury hemodynamically mediated possible acute tubular necrosis Chronic kidney disease stage IV Hypertension History of mitral valve replacement on Coumadin Neutropenia and thrombocytopenia most likely due to sepsis Sepsis Plan 02/18/2024: UTI: Continue Rocephin IV WILLARD: Continue IV fluids History of mitral valve replacement and atrial fibrillation: Lovenox, Coumadin per pharmacy protocol Nephrology consult Urology is following Flomax Wang catheter 02/19/2024: Blood and urine cultures are pending Continue Rocephin Kidney function has not improved Discontinue morphine to minimize sedation and encephalopathy Nephrology is following Discussed with the son at the bedside If the patient needs dialysis, the son is agreeable Plan discussed with: Patient, Son My Orders Orders - LING LOCKETT MD Procedure Category Date Status Time Blood Culture YSABEL 02/19/24 In Process 08:43 Urine Bacterial YSABEL 02/19/24 Logged Culture 08:43 Chest Portable XY 02/19/24 Resulted 08:43 Date of Service: Feb 19, 2024 Billing Provider: LING LOCKETT MD Common Visit Codes: [id number] INP/OBS CARE(HIGH) LING LOCKETT MD Feb 19, 2024 11:05
--- NOTE | 2024-02-19 14:17 | DVHPN2 ---
Progress Note Date Seen: Feb 19, 2024 Has the PT tested + for MRSA If YES, has PT been informed?: No Medical Necessity Reason Pt with a Central, PICC or Fol: Yes The following are medically ne: Osullivan Catheter Reason for osullivan catheter: Bladder Retention/Obstruc, Strict I&O Subjective Patient reports: No new complaints Objective vital signs Vital Sign Date Time Temp Pulse Resp B/P (MAP) Pulse Ox O2 Delivery O2 Flow Rate FiO2 02/19/24 12:50 97.8 71 16 115/62 (79) 92 97.8 02/19/24 07:45 Room Air* 0 21 Total Intake and Output 02/18/24 02/18/24 02/19/24 15:00 23:00 07:00 Intake Total 50 ml 525 ml 300 ml Output Total 175 ml 200 ml Balance 50 ml 350 ml 100 ml medications Current Medications Medications Dose Ordered Sig/Desmond Route Start Time Stop Time Status Last Admin Dose Admin Acetaminophen/ Hydrocodone Bitart 1 tab Q6HPRN PRN PO 02/13/24 13:00 Acetaminophen 500 mg Q8HP PRN PO 02/13/24 13:00 Ondansetron HCl 4 mg Q6HP PRN IV 02/13/24 13:00 Docusate Sodium 100 mg BID PRN PO 02/13/24 13:00 Ceftriaxone Sodium 50 ml @ 100 mls/hr DAILY@09 IV 02/14/24 09:00 02/19/24 09:34 100 MLS/HR Baclofen 10 mg HS PO 02/13/24 22:00 02/18/24 21:37 10 MG Tamsulosin HCl 0.4 mg QPM PO 02/13/24 18:00 02/18/24 18:40 0.4 MG Patient Own Medication 2,500 mcg DAILY PO 02/14/24 10:00 Pravastatin Sodium 20 mg HS PO 02/13/24 22:00 02/18/24 21:37 20 MG Pregabalin 150 mg BID PO 02/13/24 22:00 02/19/24 09:35 150 MG Dextrose/Sodium Chloride 1,000 ml @ 100 mls/hr Q10H IV 02/15/24 09:30 02/18/24 21:55 100 MLS/HR Patient Own Medication 2 mg QID PO 02/15/24 22:00 02/19/24 05:39 2 MG Calcium Acetate 667 mg TIDWMEALS PO 02/16/24 12:00 02/18/24 18:40 667 MG Warfarin Sodium RX PROTOCOL PER PHARMACY PO 02/17/24 09:00 Enoxaparin Sodium 100 mg DAILY SC 02/17/24 10:00 02/17/24 09:53 100 MG Examination Gen: Appears stated age, in no acute distress. 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 Acute urinary retention Left nonobstructing kidney stone Pyelonephritis E coli urinary tract infection Pancytopenia Prosthetic mitral valve Parkinson's disease Abdominal aortic aneurysm s/p L ureteral stent Recommendations Continue serial chemistry panels- slight worsening in creat noted, marginal kidney function. Will evaluate daily for [employer] Continue to closely monitor fluid and electrolytes Avoid nephrotoxic medications Osullivan catheter Strict I&Os Continue IV antibiotics Urology onboard- s/p L ureteral stent We will continue to follow Case discussed with Dr. Mark Valdovinos Plan discussed with: Patient, Other (Dr. Valdovinos) Dietary Evaluation Review Comments: 1) Consider a Renal Specific K2,low phos,ROCÍO,2gmNa,80g Pro diet 2) Continue current plan of care Expected Outcomes/Goals: 1) Pt labs to improve BRUNO PITTMAN PATIENT LIAISON Feb 19, 2024 14:17
[2024-02-19] MEDS: WARFARIN SODIUM 2 MG TAB PO ONE (23:00)
[2024-02-20] VITALS (20 sets, daily range): BP systolic 96–141; BP diastolic 51–76; PULSE 54–67; RESP 8–18; TEMP 97.5–98.3; O2SAT 96–100
[2024-02-20 06:13] LABS: Hematocrit 25.6 % (41.0-53.0); Hemoglobin 8.9 g/dL (13.5-17.5); Mean Corpuscular Hemoglobin 30.4 pg (28.0-32.0); Mean Corpuscular Hgb Conc. 34.8 g/dL (32.0-36.0); Mean Corpuscular Volume 87.2 fL (80.0-100.0); Platelet Count (auto) 87 10^3/uL (140-450); Red Blood Cells 2.93 10^6/uL (4.5-5.90); Red Cell Distribution Width 13.5 % (11.8-14.3); White Blood Cell 2.6 10^3/uL (4.4-10.8)
[2024-02-20 06:20] LABS: Basophils % (manual) 0 (0.0-2.0); Blast Cells 0; Metamyelocytes % 0; Myelocytes % 0; Promyelocytes % 0; Reactive Lymphocytes 0
[2024-02-20 06:32] LABS: Albumin 3.1 g/dL (3.2-4.8); Alkaline Phosphatase 51 U/L (46-116); Anion Gap 8 (5-15); Aspartate Aminotransferase 8 U/L (13-40); Blood Urea Nitrogen 77 mg/dL (9-23); Calcium 8.3 mg/dL (8.7-10.4); Carbon Dioxide 20 mmol/L (20-31); Chloride 104 mmol/L (98-107); Glucose 111 mg/dL (74-106); Magnesium 2.3 mg/dL (1.6-2.6); Potassium 4.4 mmol/L (3.5-5.1); Sodium 132 mmol/L (136-145)
[2024-02-20 06:33] LABS: Bilirubin, Total < 0.2 mg/dL (0.2-1.0); Total Protein 4.8 g/dL (5.7-8.2)
[2024-02-20 06:34] LABS: Alanine Aminotransferase < 9 U/L (7-40)
[2024-02-20 07:21] LABS: Band Neutrophils % (manual) 1; Eosinophils % (manual) 3 (0-7); Lymphocytes % (manual) 29 (10.0-50.0); Monocytes % (manual) 20 (0-12); Platelet Estimate Decreased
[2024-02-20 07:22] LABS: RBC Morphology Normal
--- NOTE | 2024-02-20 10:08 | DVHPN2 ---
Subjective Patient lethargic. Reviewed: Care Plan, H&P, Labs, Medications, Previous Orders Changes from previous H/P or p: No Changes General: Per HPI Eyes: No Pain, No Vision change, No Conjunctivae inflammation, No Eyelid inflammation, No Other, No Redness ENT: No Ear pain, No Ear discharge, No Nose pain, No Nose discharge, No Nose congestion, No Mouth pain, No Mouth swelling, No Throat pain, No Throat swelling, No Other Cardiovascular: No Chest Pain, No Palpitations, No Orthopnea, No Paroxysmal Noc. Dyspnea, No Edema, No Lt Headedness, No Other Respiratory: No Cough, No Dry, No Shortness of breath, No SOB with excertion, No Wheezing, No Hemoptysis, No Pleuritic Pain, No Sputum, No Other Gastrointestinal: Nausea Genitourinary: Dysuria Musculoskeletal: No other, No neck pain, No shoulder pain, No arm pain, No back pain, No hand pain, No leg pain, No foot pain Skin: No Rash, No Lesions, No Jaundice, No Bruising, No Other Objective Vitals Vital Signs Date Time Temp Pulse Resp B/P (MAP) Pulse Ox O2 Delivery O2 Flow Rate FiO2 02/20/24 08:32 97.8 54 18 98/51 (67) 98 97.8 02/19/24 20:00 Nasal Cannula* 2 28 Intake/Output Intake and Output 02/20/24 07:00 Intake Total 2340 ml Output Total 500 ml Balance 1840 ml Intake Oral 740 ml IV Total 1600 ml Output Urine Total 500 ml General Appearance: Alert, Cooperative, Other (Encephalopathic) HEENT: Atraumatic, PERRLA Lungs: Clear to auscultation, Normal air movement Cardiovascular: Normal S1, Normal S2 Abdomen: Normal bowel sounds Genitourinary: No Apparent Abnormalities Musculoskeletal: Normal sensory function, Normal motor function Skin: Dry, Intact Psych/Mental Status: Mental status NL, Mood NL Medications Current Medications Medications Dose Ordered Sig/Desmond Route Start Time Stop Time Status Last Admin Dose Admin Acetaminophen 500 mg Q8HP PRN PO 02/13/24 13:00 Ondansetron HCl 4 mg Q6HP PRN IV 02/13/24 13:00 Docusate Sodium 100 mg BID PRN PO 02/13/24 13:00 Ceftriaxone Sodium 50 ml @ 100 mls/hr DAILY@09 IV 02/14/24 09:00 02/19/24 09:34 100 MLS/HR Tamsulosin HCl 0.4 mg QPM PO 02/13/24 18:00 02/18/24 18:40 0.4 MG Patient Own Medication 2,500 mcg DAILY PO 02/14/24 10:00 Pravastatin Sodium 20 mg HS PO 02/13/24 22:00 02/19/24 22:47 20 MG Pregabalin 150 mg BID PO 02/13/24 22:00 02/19/24 22:47 150 MG Patient Own Medication 2 mg QID PO 02/15/24 22:00 02/20/24 06:00 2 MG Calcium Acetate 667 mg TIDWMEALS PO 02/16/24 12:00 02/18/24 18:40 667 MG Warfarin Sodium RX PROTOCOL PER PHARMACY PO 02/17/24 09:00 Enoxaparin Sodium 100 mg DAILY SC 02/20/24 10:00 UNV Sodium Chloride 1,000 ml @ 75 mls/hr [id number] IV 02/20/24 10:00 UNV Laboratory Results Laboratory Tests 02/20/24 05:00 Chemistry Test 02/20/24 05:00 Albumin 3.1 g/dL (3.2-4.8) L Calcium Level 8.3 mg/dL (8.7-10.4) L Magnesium Level 2.3 mg/dL (1.6-2.6) Total Protein 4.8 g/dL (5.7-8.2) L LFT Test 02/20/24 05:00 Alanine Aminotransferase (ALT) < 9 U/L (7-40) Alkaline Phosphatase 51 U/L (46-116) Aspartate Amino Transferase (AST) 8 U/L (13-40) L Total Bilirubin < 0.2 mg/dL (0.2-1.0) L Urinalysis Test 02/13/24 09:15 02/15/24 14:15 Urine Color [place] (Yellow) H Urine Clarity Ex.turbid (Clear) Urine pH 5.5 (5.0-9.0) Urine Specific [place] 1.022 (1.001-1.035) Urine Protein 3+ (Negative) H Urine Ketones Trace (Negative) Urine Blood 3+ /uL (Negative) H Urine Nitrite Negative (Negative) Urine Bilirubin Negative (Negative) Urine Urobilinogen 2 mg/dL (Negative) H Urine Leukocyte Esterase 3+ /uL (Negative) Urine RBC 137 /hpf (0 - 3) Urine WBC 907 /hpf (0 - 3) Urine WBC Clumps Present /hpf (None Seen) Urine Squamous Epithelial Cells None seen /hpf (<5) Urine Bacteria None seen /hpf (None Seen) Urine Hyaline Casts Mod /lpf (0 - 2) Urine Granular Casts Many /lpf (0) Urine Mucus Few (None Seen) Urine Yeast (Budding) Occasional /hpf (None Urine Glucose Normal mg/dL (Normal) Urine Creatinine 175.39 mg/dL (30.0-125.0) H Urine Protein/Creatinine Ratio 1.86 Urine Sodium 94 mmol/L (40-220) Urine Total Protein 326.1 mg/dL (1-14) H Microbiology Microbiology Date/Time Source Procedure Growth Status 02/19/24 09:26 Blood Blood Culture - Preliminary NO GROWTH AFTER 24 HOURS OF INCUBATION. Resulted 02/13/24 09:15 Voided Urine Urine Culture - Final Escherichia coli Complete Labs and/or images reviewed: Labs reviewed by me, Image(s) reviewed by me Assessment/Plan Assessment/Plan Impression: -complicated cystitis with E coli -renal calculi -hematuria -pancytopenia -history of prosthetic mitral valve replacement -primary hypertension -Parkinson disease -chronic kidney disease stage 3, acute kidney injury, probable ATN -chronic B-cell lymphoma Plan: -events: Patient with persistent elevation with BUN and creatinine. Plans for Mag three renal scan today. Patient found to be lethargic today -continue bridge therapy -CT scan of the head -ABG -continue IV hydration -nephrology consultation, recommendations appreciated -continue Rocephin -urology consultation : Recommendations reviewed -repeat labs in a.m. -continue carbidopa levodopa -transfer patient to step-down ICU Critical care time spent with patient discussing and formulating plan of care: 40 minutes. This does not include time spent performing procedures. This medical document was created using an electronic medical record system with [employer]ation system. Although this document has been carefully reviewed, there may still be some phonetic and typographical errors. These areas are purely typographical due to imperfections of the software programs, and do not reflect any compromise in the patient's medical care. Plan discussed with: Patient, Other (RN) My Orders Orders - SHEA GAYTAN NP Procedure Category Date Status Time Enoxaparin Sodium PHA 02/20/24 Logged (Lovenox) 10:00 Abg W/ Co-Ox RT 02/20/24 Logged 09:49 Chest Xray 1 View XY 02/20/24 Logged 09:49 Transfer Orders XFER 02/20/24 Transmitted 09:49 Sodium Chloride 0.9% PHA 02/20/24 Logged 10:[address] 02/20/24 Logged 09:49 Date of Service: Feb 20, 2024 Billing Provider: SHEA GAYTAN NP Common Visit Codes: [id number] CARE 30-74 MIN SHEA GAYTAN NP Feb 20, 2024 10:08
[2024-02-20 10:17] LABS: Base Excess -7.7 mmol/L (-2.0-3.0)
--- NOTE | 2024-02-20 10:23 | DVHPN2 ---
Progress Note - Dictate Date Seen: Feb 20, 2024 Has the PT tested + for MRSA If YES, has PT been informed?: No Medical Necessity Reason Pt with a Central, PICC or Fol: Yes The following are medically ne: Osullivan Catheter Reason for osullivan catheter: Bladder Retention/Obstruc, Strict I&O Medical Necessity Reason WILLARD on CKD vital signs Vital Sign Date Time Temp Pulse Resp B/P (MAP) Pulse Ox O2 Delivery O2 Flow Rate FiO2 02/20/24 08:32 97.8 54 18 98/51 (67) 98 97.8 02/20/24 08:00 Nasal Cannula* 2 28 Total Intake and Output 02/19/24 02/19/24 02/20/24 15:00 23:00 07:00 Intake Total 800 ml 440 ml 1100 ml Output Total 200 ml 300 ml Balance 800 ml 240 ml 800 ml medications Current Medications Medications Dose Ordered Sig/Desmond Route Start Time Stop Time Status Last Admin Dose Admin Acetaminophen 500 mg Q8HP PRN PO 02/13/24 13:00 Ondansetron HCl 4 mg Q6HP PRN IV 02/13/24 13:00 Docusate Sodium 100 mg BID PRN PO 02/13/24 13:00 Ceftriaxone Sodium 50 ml @ 100 mls/hr DAILY@09 IV 02/14/24 09:00 02/19/24 09:34 100 MLS/HR Tamsulosin HCl 0.4 mg QPM PO 02/13/24 18:00 02/18/24 18:40 0.4 MG Patient Own Medication 2,500 mcg DAILY PO 02/14/24 10:00 Pravastatin Sodium 20 mg HS PO 02/13/24 22:00 02/19/24 22:47 20 MG Pregabalin 150 mg BID PO 02/13/24 22:00 02/19/24 22:47 150 MG Patient Own Medication 2 mg QID PO 02/15/24 22:00 02/20/24 06:00 2 MG Calcium Acetate 667 mg TIDWMEALS PO 02/16/24 12:00 02/18/24 18:40 667 MG Warfarin Sodium RX PROTOCOL PER PHARMACY PO 02/17/24 09:00 Enoxaparin Sodium 100 mg DAILY SC 02/20/24 10:00 UNV Sodium Chloride 1,000 ml @ 75 mls/hr [id number] IV 02/20/24 10:00 UNV objective lethargic and ill appearing, confused laboratory and microbiology Laboratory Tests 02/20/24 05:00 Test 02/20/24 05:00 Range/Units Serum Glucose 111 H 74-106 mg/dL Assessment/Plan NM renal scan for split function and r/o obstructive uropathy. Problems(with codes): (1) UTI (urinary tract infection) (2) WILLARD (acute kidney injury) (3) Hematuria (4) CHF (congestive heart failure) (5) Obstructive uropathy (6) Decreased urine output (7) Generalized weakness (8) History of lupus (9) Metabolic encephalopathy (10) Pancytopenia Prognosis guarded Dietary Evaluation Review Comments: 1) Consider a Renal Specific K2,low phos,ROCÍO,2gmNa,80g Pro diet 2) Continue current plan of care Expected Outcomes/Goals: 1) Pt labs to improve Plan discussed with: Other MARGIE LUGO NP Feb 20, 2024 10:23
--- NOTE | 2024-02-20 10:36 | DVH ---
EXAM: CT HEAD WITHOUT CONTRAST HISTORY: ALOC COMPARISON: CT HEAD WITHOUT CONTRAST on DOS: 09/06/23 TECHNIQUE: Axial images were obtained and reformatted in coronal and sagittal planes. All CT scans at this medical facility are performed using dose modulation techniques as appropriate t o a performed exam including the following: Automated exposure control was utilized; adjustment of th e MA and/or KV according to patient size; and use of iterative reconstruction technique. CT Dose: CTDI volume is 64.15 mGy. Dose-length product is 1156.46 mGy*cm FINDINGS: There is no evidence of acute intracranial hemorrhage, mass, mass effect midline shift. There is no h ydrocephalus or extra-axial fluid collection. There is age concordant generalized parenchymal volume loss. The adair and white matter differentiation appears maintained. Calvarium is intact. There is partial opacification of the ethmoid sinuses. The mastoid air cells a re clear. IMPRESSION: 1. No acute intracranial process. HS:Y
[2024-02-20] MEDS: ENOXAPARIN SOD 100 MG/1 ML SYRINGE SC SCH (10:59)
[2024-02-20] MEDS: SODIUM CHLORIDE 0.9% 1,000 ML IV SCH (11:02)
--- NOTE | 2024-02-20 11:05 | DVH ---
CHEST RADIOGRAPH Indication:chf Technique: Single frontal view of the chest was obtained Comparison: XY CHEST PORTABLE on DOS: 02/19/24, XY CHEST PORTABLE on DOS: 02/15/24, XY CHEST PORTABLE on DOS: 09/17/23, XY CHEST PORTABLE on DOS: 09/08/23, XY CHEST PORTABLE on DOS: 03/18/23 FINDINGS: Lines and Tubes: None Lungs: No focal consolidation. Pleura: No effusion. No pneumothorax. Cardiomediastinal contours: Cardiomegaly Bones: No acute osseous abnormality. IMPRESSION: Cardiomegaly with mild CHF
[2024-02-20] MEDS: FUROSEMIDE 40 MG/4 ML VIAL ONE (16:03)
[2024-02-20] MEDS: SODIUM BICARB 50mEq/50ml Vial 50 ML in SOD CHL 0.45% 1,000 ML IV ONE (16:15)
--- NOTE | 2024-02-20 16:42 | DVH ---
EXAM: NM NM MAG3 RENAL SCAN DATE OF SERVICE: 02/20/2024 02:57 PM ORDERING PHYSICIAN: SHEA GAYTAN REASON FOR EXAM: elevated creatinine TECHNIQUE: During the injection of radiopharmaceutical, posterior flow images of the kidneys were ac quired immediately at one frame per second for one minute, immediately followed by posterior imaging at 30 seconds per frame for 30 minutes. Regions of interest were drawn around the kidneys and time a ctivity curves were generated. COMPARISON: None FINDINGS: Blood flow images demonstrate delayed and symmetric flow to both kidneys with no focal defects. Functional images demonstrate a cortical transit time ([id number]) of 25.5 on the right and 39.5 on the left (normal is < 6 minutes). There is no significant spontaneous excretion from the bilateral kidneys. IMPRESSION: 1. Delayed perfusion and no evidence of spontaneous secretion from the bilateral kidneys. Findings ma y reflect a functional versus mechanical obstruction. Consider a diuretic renogram for further evalua tion.
[2024-02-20] MEDS: WARFARIN SODIUM 2 MG TAB PO ONE (16:55)
[2024-02-20 17:39] LABS: INR 1.08 (0.9-1.15); Prothrombin Time 11.4 sec (9.3-11.8)
--- NOTE | 2024-02-20 19:14 | DVHPN2 ---
Progress Note Date Seen: Feb 20, 2024 Has the PT tested + for MRSA If YES, has PT been informed?: No Medical Necessity Reason Pt with a Central, PICC or Fol: Yes The following are medically ne: Osullivan Catheter Reason for osullivan catheter: Bladder Retention/Obstruc, Strict I&O Subjective Patient reports: Other (events noted) Review of Systems: Deferred Objective vital signs Vital Sign Date Time Temp Pulse Resp B/P (MAP) Pulse Ox O2 Delivery O2 Flow Rate FiO2 02/20/24 18:00 60 9 121/58 (79) 99 02/20/24 16:00 97.6 97.6 02/20/24 16:00 Nasal Cannula* 4 36 Total Intake and Output 02/19/24 02/19/24 02/20/24 15:00 23:00 07:00 Intake Total 800 ml 440 ml 1100 ml Output Total 200 ml 300 ml Balance 800 ml 240 ml 800 ml medications Current Medications Medications Dose Ordered Sig/Desmond Route Start Time Stop Time Status Last Admin Dose Admin Acetaminophen 500 mg Q8HP PRN PO 02/13/24 13:00 Ondansetron HCl 4 mg Q6HP PRN IV 02/13/24 13:00 Docusate Sodium 100 mg BID PRN PO 02/13/24 13:00 Ceftriaxone Sodium 50 ml @ 100 mls/hr DAILY@09 IV 02/14/24 09:00 02/20/24 10:59 100 MLS/HR Tamsulosin HCl 0.4 mg QPM PO 02/13/24 18:00 02/18/24 18:40 0.4 MG Patient Own Medication 2,500 mcg DAILY PO 02/14/24 10:00 Pravastatin Sodium 20 mg HS PO 02/13/24 22:00 02/19/24 22:47 20 MG Pregabalin 150 mg BID PO 02/13/24 22:00 02/19/24 22:47 150 MG Patient Own Medication 2 mg QID PO 02/15/24 22:00 02/20/24 06:00 2 MG Calcium Acetate 667 mg TIDWMEALS PO 02/16/24 12:00 02/18/24 18:40 667 MG Warfarin Sodium RX PROTOCOL PER PHARMACY PO 02/17/24 09:00 Enoxaparin Sodium 100 mg DAILY SC 02/20/24 10:00 02/20/24 10:59 100 MG Bumetanide 1 mg BIDD IV 02/21/24 06:00 UNV Examination: GENERAL:Abnormal, LUNGS:Abnormal, NEURO:Abnormal (altered) laboratory and microbiology Laboratory Tests 02/20/24 05:00 Test 02/20/24 05:00 Range/Units Serum Glucose 111 H 74-106 mg/dL Microbiology Date/Time Source Procedure Growth Status 02/19/24 09:26 Blood Blood Culture - Preliminary NO GROWTH AFTER 24 HOURS OF INCUBATION. Resulted 02/13/24 09:15 Voided Urine Urine Culture - Final Escherichia coli Complete Problem List/Assessment/Plan Problem List/Assessment/Plan Acute kidney injury superimposed Chronic Kidney Disease secondary to urinary retention + ATN possibly. Acute urinary retention Left nonobstructing kidney stone Pyelonephritis E coli urinary tract infection Pancytopenia Prosthetic mitral valve Parkinson's disease Abdominal aortic aneurysm s/p L ureteral stent encephalopathy Recommendations bumex iv bid// dc ivf will consider dialysis in next 24-48 hrs if no improvement in clinical status Urology onboard- s/p L ureteral stent Plan discussed with: Other My Orders My Orders Orders - PEDRO MONTERO MD Procedure Category Date Status Time Communication Order ORDERS 02/20/24 Transmitted 19:01 Bumetanide Injection PHA 02/21/24 Logged (Bumex Injection) 06:00 Bumetanide Injection PHA 02/20/24 Logged (Bumex Injection) 19:15 Dietary Evaluation Review Comments: 1) Consider a Renal Specific K2,low phos,ROCÍO,2gmNa,80g Pro diet 2) Continue current plan of care Expected Outcomes/Goals: 1) Pt labs to improve PEDRO MONTERO MD Feb 20, 2024 19:14
[2024-02-20] MEDS ORDERED: BUMETANIDE 2.5mg/10ml (0.25 mg/ml) INJ IV ONE (19:15)
[2024-02-20] MEDS: BUMETANIDE 1mg/4ml VIAL (0.25mg/ml) IV ONE (20:54)
[2024-02-21] VITALS (35 sets, daily range): BP systolic 115–158; BP diastolic 43–75; PULSE 57–75; RESP 9–18; TEMP 97.8–98.8; O2SAT 92–99
[2024-02-21] MEDS: BUMETANIDE 1mg/4ml VIAL (0.25mg/ml) IV SCH (06:06)
[2024-02-21 06:08] LABS: Anion Gap 9 (5-15); Carbon Dioxide 20 mmol/L (20-31); Chloride 106 mmol/L (98-107); Potassium 4.8 mmol/L (3.5-5.1); Sodium 135 mmol/L (136-145)
[2024-02-21 06:09] LABS: Basophils # (auto) 0 10 ^3/uL (0-0.2); Basophils % (auto) 1.2 % (0.0-2.0); Calcium 8.4 mg/dL (8.7-10.4); Eosinophils # (auto) 0.1 10 ^3/uL (0-0.8); Eosinophils % (auto) 2.7 % (0.0-7.0); Hematocrit 27.9 % (41.0-53.0); Hemoglobin 9.7 g/dL (13.5-17.5); Lymphocytes # (auto) 0.7 10 ^3/uL (0.4-5.4); Lymphocytes % (auto) 20.3 % (10.0-50.0); Mean Corpuscular Hemoglobin 30.7 pg (28.0-32.0); Mean Corpuscular Hgb Conc. 34.8 g/dL (32.0-36.0); Monocytes # (auto) 0.4 10 ^3/uL (0-1.3); Monocytes % (auto) 12.1 % (0.0-12.0); Neutrophils # (auto) 2.2 10 ^3/uL (1.6-8.6); Neutrophils % (auto) 63.7 % (37.0-80.0); Nucleated Red Blood Cells % 0.2 %; Platelet Count (auto) 90 10^3/uL (140-450); Red Blood Cells 3.17 10^6/uL (4.5-5.90); Red Cell Distribution Width 13.5 % (11.8-14.3); White Blood Cell 3.4 10^3/uL (4.4-10.8)
[2024-02-21 06:14] LABS: Glucose 86 mg/dL (74-106)
[2024-02-21 06:16] LABS: INR 1.06 (0.9-1.15); Prothrombin Time 11.2 sec (9.3-11.8)
[2024-02-21 06:17] LABS: Blood Urea Nitrogen 83 mg/dL (9-23)
--- NOTE | 2024-02-21 09:08 | DVHPN2 ---
Subjective Patient lethargic. Reviewed: Care Plan, H&P, Labs, Medications, Previous Orders Changes from previous H/P or p: No Changes General: Per HPI Eyes: No Pain, No Vision change, No Conjunctivae inflammation, No Eyelid inflammation, No Other, No Redness ENT: No Ear pain, No Ear discharge, No Nose pain, No Nose discharge, No Nose congestion, No Mouth pain, No Mouth swelling, No Throat pain, No Throat swelling, No Other Cardiovascular: No Chest Pain, No Palpitations, No Orthopnea, No Paroxysmal Noc. Dyspnea, No Edema, No Lt Headedness, No Other Respiratory: No Cough, No Dry, No Shortness of breath, No SOB with excertion, No Wheezing, No Hemoptysis, No Pleuritic Pain, No Sputum, No Other Gastrointestinal: Nausea Genitourinary: Dysuria Musculoskeletal: No other, No neck pain, No shoulder pain, No arm pain, No back pain, No hand pain, No leg pain, No foot pain Skin: No Rash, No Lesions, No Jaundice, No Bruising, No Other Objective Vitals Vital Signs Date Time Temp Pulse Resp B/P (MAP) Pulse Ox O2 Delivery O2 Flow Rate FiO2 02/21/24 08:00 61 15 Nasal Cannula* 1 24 02/21/24 08:00 97.8 115/58 (77) 96 97.8 Intake/Output Intake and Output 02/21/24 07:00 Intake Total 375 ml Output Total 1100 ml Balance -725 ml Intake Oral 150 ml IV Total 225 ml Output Urine Total 1100 ml General Appearance: Alert, Oriented X3, Cooperative, Other (Encephalopathic) HEENT: Atraumatic, PERRLA Lungs: Clear to auscultation, Normal air movement Cardiovascular: Normal S1, Normal S2 Abdomen: Normal bowel sounds Genitourinary: No Apparent Abnormalities Musculoskeletal: Normal sensory function, Normal motor function Skin: Dry, Intact Psych/Mental Status: Mental status NL, Mood NL Medications Current Medications Medications Dose Ordered Sig/Desmond Route Start Time Stop Time Status Last Admin Dose Admin Acetaminophen 500 mg Q8HP PRN PO 02/13/24 13:00 Ondansetron HCl 4 mg Q6HP PRN IV 02/13/24 13:00 Docusate Sodium 100 mg BID PRN PO 02/13/24 13:00 Ceftriaxone Sodium 50 ml @ 100 mls/hr DAILY@09 IV 02/14/24 09:00 02/21/24 08:08 100 MLS/HR Tamsulosin HCl 0.4 mg QPM PO 02/13/24 18:00 02/18/24 18:40 0.4 MG Patient Own Medication 2,500 mcg DAILY PO 02/14/24 10:00 Pravastatin Sodium 20 mg HS PO 02/13/24 22:00 02/20/24 21:38 20 MG Pregabalin 150 mg BID PO 02/13/24 22:00 02/20/24 21:37 150 MG Patient Own Medication 2 mg QID PO 02/15/24 22:00 02/21/24 06:06 2 MG Calcium Acetate 667 mg TIDWMEALS PO 02/16/24 12:00 02/18/24 18:40 667 MG Warfarin Sodium RX PROTOCOL PER PHARMACY PO 02/17/24 09:00 Enoxaparin Sodium 100 mg DAILY SC 02/20/24 10:00 02/20/24 10:59 100 MG Bumetanide 1 mg BIDD IV 02/21/24 06:00 02/21/24 06:06 1 MG Laboratory Results Laboratory Tests 02/21/24 04:58 Chemistry Test 02/21/24 04:58 Calcium Level 8.4 mg/dL (8.7-10.4) L Phosphorus Level Pending Coagulation Test 02/20/24 16:38 02/21/24 04:58 Prothrombin Time 11.4 sec (9.3-11.8) 11.2 sec (9.3-11.8) Prothrombin Time INR 1.08 (0.9-1.15) 1.06 (0.9-1.15) Urinalysis Test 02/13/24 09:15 02/15/24 14:15 Urine Color [place] (Yellow) H Urine Clarity Ex.turbid (Clear) Urine pH 5.5 (5.0-9.0) Urine Specific [place] 1.022 (1.001-1.035) Urine Protein 3+ (Negative) H Urine Ketones Trace (Negative) Urine Blood 3+ /uL (Negative) H Urine Nitrite Negative (Negative) Urine Bilirubin Negative (Negative) Urine Urobilinogen 2 mg/dL (Negative) H Urine Leukocyte Esterase 3+ /uL (Negative) Urine RBC 137 /hpf (0 - 3) Urine WBC 907 /hpf (0 - 3) Urine WBC Clumps Present /hpf (None Seen) Urine Squamous Epithelial Cells None seen /hpf (<5) Urine Bacteria None seen /hpf (None Seen) Urine Hyaline Casts Mod /lpf (0 - 2) Urine Granular Casts Many /lpf (0) Urine Mucus Few (None Seen) Urine Yeast (Budding) Occasional /hpf (None Urine Glucose Normal mg/dL (Normal) Urine Creatinine 175.39 mg/dL (30.0-125.0) H Urine Protein/Creatinine Ratio 1.86 Urine Sodium 94 mmol/L (40-220) Urine Total Protein 326.1 mg/dL (1-14) H Blood Gas Results Test 02/20/24 10:05 Arterial Blood pH 7.326 (7.350-7.450) FiO2 % 28.0 Microbiology Microbiology Date/Time Source Procedure Growth Status 02/19/24 09:26 Blood Blood Culture - Preliminary NO GROWTH AFTER 24 HOURS OF INCUBATION. Resulted 02/13/24 09:15 Voided Urine Urine Culture - Final Escherichia coli Complete Labs and/or images reviewed: Labs reviewed by me, Image(s) reviewed by me Assessment/Plan Assessment/Plan Impression: -complicated cystitis with E coli -renal calculi -hematuria -pancytopenia -history of prosthetic mitral valve replacement -primary hypertension -Parkinson disease -chronic kidney disease stage 3, acute kidney injury, probable ATN -chronic B-cell lymphoma Plan: -events: UO increased with Diuretics. Still lethargic. Ct head negative. Metabolic acidosis. Poor oral intake. Urine dark. Check LFTs, ammonia level, UA. -continue bridge therapy -nephrology consultation, recommendations reviewed -continue Rocephin -urology consultation : Recommendations reviewed -repeat labs in a.m. -continue carbidopa levodopa -transfer patient to step-down ICU Critical care time spent with patient discussing and formulating plan of care: 40 minutes. This does not include time spent performing procedures. This medical document was created using an electronic medical record system with [employer] system. Although this document has been carefully reviewed, there may still be some phonetic and typographical errors. These areas are purely typographical due to imperfections of the software programs, and do not reflect any compromise in the patient's medical care. Plan discussed with: Patient, Other (RN) My Orders Orders - SHEA GAYTAN [employer]ER[employer] Procedure Category Date Status Time Enoxaparin Sodium PHA 02/20/24 In Process (Lovenox) 10:00 Abg W/ Co-Ox RT 02/20/24 Logged 09:49 Chest Xray 1 View XY 02/20/24 Resulted 09:49 Transfer Orders XFER 02/20/24 Transmitted 09:[address] 02/20/24 Resulted 09:49 * Swallow Request ST 02/20/24 Transmitted 15:15 Pureed DIET 02/21/24 Transmitted Breakfast Mrsa Screen YSABEL 02/20/24 In Process 19:10 Echo 2d Mode Cardiac US 02/21/24 Logged DOP 10:23 Phosphorus LAB 02/21/24 In Process 08:34 Urinalysis LAB 02/21/24 Logged 09:00 Comprehensive LAB 02/21/24 Logged Metabolic Panel 09:00 Basic Metabolic Panel LAB 02/22/24 Verified 05:00 Basic Metabolic Panel LAB 02/23/24 Verified 05:00 Basic Metabolic Panel LAB 02/24/24 Verified 05:00 Basic Metabolic Panel LAB 02/25/24 Verified 05:00 Basic Metabolic Panel LAB 02/26/24 Verified 05:00 Complete Blood Count LAB 02/22/24 Verified 05:00 Complete Blood Count LAB 02/23/24 Verified 05:00 Complete Blood Count LAB 02/24/24 Verified 05:00 Complete Blood Count LAB 02/25/24 Verified 05:00 Complete Blood Count LAB 02/26/24 Verified 05:00 Ammonia LAB 02/21/24 Verified 09:03 Thyroid Stimulating LAB 02/21/24 Verified Hormone 09:03 Vitamin D 25-Hydroxy LAB 02/21/24 Verified D2 + D3 09:03 Uric Acid LAB 02/21/24 Verified 09:03 Date of Service: Feb 21, 2024 Billing Provider: SHEA GAYTAN [employer] THER[employer]IST Common Visit Codes: [id number] CARE 30-74 MIN SHEA GAYTAN [employer]UP[employer] THERAPIST Feb 21, 2024 09:08
[2024-02-21 09:43] LABS: Urine Bacteria FEW /hpf (None Seen); Urine Blood 3+ /uL (Negative); Urine Clarity Ex.Turbid (Clear); Urine Color Brown (Yellow); Urine Mucus FEW (None Seen); Urine Protein, UAD 1+ (Negative); Urine Specific Gravity 1.009 (1.001-1.035); Urine Urobilinogen Normal (Negative); Urine WBC 95 /hpf (0 - 3); Urine WBC Clumps PRESENT /hpf (None Seen)
[2024-02-21 10:19] LABS: Albumin 3.1 g/dL (3.2-4.8); Alkaline Phosphatase 59 U/L (46-116); Anion Gap 9 (5-15); Aspartate Aminotransferase 12 U/L (13-40); BUN/Creatinine Ratio 20.8 (10.0-20.0); Calcium 8.4 mg/dL (8.7-10.4); Carbon Dioxide 20 mmol/L (20-31); Chloride 107 mmol/L (98-107); Glucose 94 mg/dL (74-106); Potassium 5.1 mmol/L (3.5-5.1); Sodium 136 mmol/L (136-145)
[2024-02-21 10:20] LABS: Bilirubin, Total 0.3 mg/dL (0.2-1.0); Total Protein 5.2 g/dL (5.7-8.2)
[2024-02-21 10:21] LABS: Alanine Aminotransferase < 9 U/L (7-40)
[2024-02-21 10:22] LABS: Blood Urea Nitrogen 80 mg/dL (9-23)
[2024-02-21] MEDS: MORPHINE SULFATE INJ 2 MG/ml SYRG IV ONE (13:12)
--- NOTE | 2024-02-21 14:50 | DVHSR ---
APPROVED REPORT EXAM: Two-dimensional and M-mode echocardiogram with Doppler and color Doppler. Blood Pressure: 115/58 mmHg INDICATION r/o thrombus,veg RISK FACTORS Height: 5'8", Weight: 236 DIMENSIONS LVDd5.7 (3.8-5.7cm)LA (2D)6.2 (1.9-4.0cm)Aortic Root3.6 (2.0-3.7cm) LVDs4.2 (2.5-4.0cm)LA (MM) (1.9-4.0cm)Aortic Cusp Exc1.6 (1.5-2.0cm) EF (%) 50.0 (55-70%)Rt. Atrium4.7 (1.9-4.0cm)Asc. Aorta cm IVSd1.2 (0.7-1.1cm)RV (D)5.0 (1.8-2.4cm) PWd1.2 (0.7-1.1cm) Mitral Valve MitralMitral Stenosis E wave1.91m/sMV Mean GR.mmHg A wave0.86m/sMV Peak GR.mmHg E/A ratio2.22D MVAcm2 DECEL [id number] 1/2 Timems Aortic Valve Aortic ValveAortic Stenosis V10.98m/Roshan Mean GR.5mmHg V21.50m/Roshan Peak GR.9mmHg LVOT Diameter2.2 (1.8-2.4cm)Doppler AVA2.48cm2 2D AVA2.66cm2 AI P 1/2 Qlmb835.64ms Tricuspid Valve TR Velocity3.67m/s [id number] Other Information Quality : Technically LimitedRhythm : Technically limited study due to body habitus. Conclusion Normal left ventricular size and dimension. Normal left ventricular systolic function estimated ejec tion fraction 50%. There is a grade 1 diastolic dysfunction. Normal right ventricular size and dimension. Normal right ventricular systolic motion. Severely tiffanie vated right ventricular systolic pressure 69 mm of mercury. Normal biatrial size and dimension. Normal aortic valve is thickened and sclerotic. There is mild aortic valve regurgitation There is a mechanicall valve prosthesis of the mitral position, it appears to open well, no significa nt gradient was noted no significant intra valvular paravalvular regurgitation was noted. Normal tricuspid valve structure function. The pulmonary valve is grossly normal. No pericardial effusion.
--- NOTE | 2024-02-21 15:11 | DVHNC2 ---
Central Line Recorder of insertion practice: Engineer Assistant Occupation of director ehs: Other (Heber Gaytan RN) Indication: Other (Hemodialysis) Room prepared for procedure: Yes Engineer Assistant performed hand hygien: Yes Maximal sterile barrier precau: Mask/Eye shield, Sterile gown, Cap, Sterlie gloves, Large sterlie drape Skin Preparation: Chlorhexidine gluconate Skin preparation completely dr: Yes Insertion site: Right, Internal jugular Central line catheter type: [id number] dialysis Number of lumens: 2 Central line exchanged over a: No Antiseptic ointment applied to: No Post Assessment: Chest X-Ray, No Pneumothorax Informed consent obtained: Yes Risks/benefits/alt described: Yes Notes Indication: Hemodialysis Ultrasound Guidance: CPT code 76328 EBL: 8ml Date of Service: Feb 21, 2024 Billing Provider: SHEA GAYTAN NP Common Visit Codes: PROCEDURE ONLY Procedure Codes: [id number] NON-TUNNEL CV CATH SHEA GAYTAN NP Feb 21, 2024 15:11
--- NOTE | 2024-02-21 15:34 | DVH ---
CHEST RADIOGRAPH Indication:LINE PLACEMENT Technique: Single frontal view of the chest was obtained COMPARISON: XY CHEST XRAY 1 VIEW on DOS: 02/20/24, XY CHEST PORTABLE on DOS: 02/19/24, XY CHEST PORTABL E on DOS: 02/15/24 FINDINGS: Lines and Tubes: Median sternotomy. Right central venous catheter in satisfactory position. Lungs: Pulmonary vascular congestion Pleura: No effusion. No pneumothorax. Cardiomediastinal contours: Cardiomegaly. Cardiac valve replacement. Bones: Unremarkable IMPRESSION: Pulmonary vascular congestion, unchanged. Right central venous catheter in satisfactory position.
--- NOTE | 2024-02-21 16:44 | DVHPN2 ---
Progress Note Date Seen: Feb 21, 2024 Has the PT tested + for MRSA If YES, has PT been informed?: No Medical Necessity Reason Pt with a Central, PICC or Fol: Yes The following are medically ne: Osullivan Catheter Reason for osullivan catheter: Bladder Retention/Obstruc, Strict I&O Subjective Patient reports: Other Review of Systems: NEURO:Abnormal Objective vital signs Vital Sign Date Time Temp Pulse Resp B/P (MAP) Pulse Ox O2 Delivery O2 Flow Rate FiO2 02/21/24 16:00 98.2 61 14 138/70 (92) 96 98.2 02/21/24 08:00 Nasal Cannula* 1 24 Total Intake and Output 02/20/24 02/20/24 02/21/24 15:00 23:00 07:00 Intake Total 225 ml 150 ml Output Total 200 ml 900 ml Balance 25 ml -750 ml medications Current Medications Medications Dose Ordered Sig/Desmond Route Start Time Stop Time Status Last Admin Dose Admin Acetaminophen 500 mg Q8HP PRN PO 02/13/24 13:00 Ondansetron HCl 4 mg Q6HP PRN IV 02/13/24 13:00 Docusate Sodium 100 mg BID PRN PO 02/13/24 13:00 Ceftriaxone Sodium 50 ml @ 100 mls/hr DAILY@09 IV 02/14/24 09:00 02/21/24 08:08 100 MLS/HR Tamsulosin HCl 0.4 mg QPM PO 02/13/24 18:00 02/18/24 18:40 0.4 MG Patient Own Medication 2,500 mcg DAILY PO 02/14/24 10:00 Pravastatin Sodium 20 mg HS PO 02/13/24 22:00 02/20/24 21:38 20 MG Pregabalin 150 mg BID PO 02/13/24 22:00 02/20/24 21:37 150 MG Patient Own Medication 2 mg QID PO 02/15/24 22:00 02/21/24 06:06 2 MG Calcium Acetate 667 mg TIDWMEALS PO 02/16/24 12:00 02/18/24 18:40 667 MG Warfarin Sodium RX PROTOCOL PER PHARMACY PO 02/17/24 09:00 Enoxaparin Sodium 100 mg DAILY SC 02/20/24 10:00 02/21/24 10:02 100 MG Bumetanide 1 mg BIDD IV 02/21/24 06:00 02/21/24 06:06 1 MG Examination: LUNGS:Abnormal, MSK:Abnormal, NEURO:Abnormal laboratory and microbiology Laboratory Tests 02/21/24 09:44 02/21/24 04:58 Test 02/21/24 09:44 Range/Units Serum Glucose 94 74-106 mg/dL Microbiology Date/Time Source Procedure Growth Status 02/20/24 19:10 Nose MRSA Screen - Final Complete 02/19/24 23:30 Urine - [place] Urine Culture - Preliminary Resulted 02/19/24 09:26 Blood Blood Culture - Preliminary NO GROWTH AFTER 48 HOURS OF INCUBATION. 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 + ATN Acute urinary retention Left nonobstructing kidney stone Pyelonephritis E coli urinary tract infection Pancytopenia Prosthetic mitral valve Parkinson's disease Abdominal aortic aneurysm s/p L ureteral stent encephalopathy Recommendations HD today as mental status worsened d/w son on the phone-informed risks and benefits of dialysis he agreed and consented for HD bumex iv bid// dc ivf Plan discussed with: Other My Orders My Orders Orders - PEDRO MONTERO MD Procedure Category Date Status Time Communication Order ORDERS 02/20/24 Transmitted 19:01 Bumetanide Injection PHA 02/21/24 In Process (Bumex Injection) 06:00 Hemodialysis Orders ORDERS 02/21/24 Transmitted 14:03 Dialysis Nursing ARACELY 02/21/24 In Process Message 14:03 Document Fluid Input ARACELY 02/21/24 In Process And Outpu 14:03 Hepatitis B Surface LAB 02/21/24 In Process Antigen 15:23 Dietary Evaluation Review Comments: 1) Consider a Renal Specific K2,low phos,ROCÍO,2gmNa,80g Pro diet 2) Continue current plan of care Expected Outcomes/Goals: 1) Pt labs to improve PEDRO MONTERO MD Feb 21, 2024 16:44
[2024-02-21] MEDS ORDERED: CLINIMIX PER PHARMACY 0 ML IV SCH (17:15)
[2024-02-21] MEDS ORDERED: DEXTROSE (50%) 50ML SYRG IV SCH (18:15)
[2024-02-21] MEDS: EPOETIN ALFA-EPBX 10,000 UNIT/1ML VIAL SC ONE (21:25)
[2024-02-21] MEDS: AMINO ACID INFUSION IN D10W 1,000 ML IV SCH (21:29)
[2024-02-21] MEDS: InsuLIN REG 1unit/0.01ml Soln (100units/ml) SC SCH (23:32)
[2024-02-21] MEDS: ACCU-CHEK COMFORT CURVE STRIP VI SCH (23:32)
[2024-02-22] VITALS (23 sets, daily range): BP systolic 117–147; BP diastolic 57–86; PULSE 63–80; RESP 11–21; TEMP 97.9–99.7; O2SAT 92–97
[2024-02-22 05:16] LABS: Basophils # (auto) 0 10 ^3/uL (0-0.2); Basophils % (auto) 0.7 % (0.0-2.0); Eosinophils # (auto) 0 10 ^3/uL (0-0.8); Hemoglobin 9.9 g/dL (13.5-17.5); Lymphocytes # (auto) 0.6 10 ^3/uL (0.4-5.4); Lymphocytes % (auto) 13.2 % (10.0-50.0); Mean Corpuscular Hemoglobin 30.4 pg (28.0-32.0); Mean Corpuscular Hgb Conc. 35.2 g/dL (32.0-36.0); Mean Corpuscular Volume 86.3 fL (80.0-100.0); Monocytes # (auto) 0.4 10 ^3/uL (0-1.3); Monocytes % (auto) 7.7 % (0.0-12.0); Neutrophils # (auto) 3.7 10 ^3/uL (1.6-8.6); Neutrophils % (auto) 77.4 % (37.0-80.0); Platelet Count (auto) 88 10^3/uL (140-450); Red Blood Cells 3.25 10^6/uL (4.5-5.90); Red Cell Distribution Width 13.2 % (11.8-14.3); White Blood Cell 4.7 10^3/uL (4.4-10.8)
[2024-02-22 05:30] LABS: Albumin 3.4 g/dL (3.2-4.8); Alkaline Phosphatase 66 U/L (46-116); Anion Gap 7 (5-15); Aspartate Aminotransferase 11 U/L (13-40); BUN/Creatinine Ratio 22.2 (10.0-20.0); Calcium 8.8 mg/dL (8.7-10.4); Carbon Dioxide 27 mmol/L (20-31); Chloride 104 mmol/L (98-107); Glucose 94 mg/dL (74-106); Magnesium 2.2 mg/dL (1.6-2.6); Potassium 4.8 mmol/L (3.5-5.1); Sodium 138 mmol/L (136-145); Triglycerides 117 mg/dL (< 150)
[2024-02-22 05:31] LABS: Alanine Aminotransferase < 9 U/L (7-40); Bilirubin, Total 0.4 mg/dL (0.2-1.0); Blood Urea Nitrogen 64 mg/dL (9-23); Phosphorus 5.5 mg/dL (2.4-5.1); Total Protein 5.7 g/dL (5.7-8.2)
--- NOTE | 2024-02-22 09:29 | DVHPN2 ---
Subjective Patient lethargic. Reviewed: Care Plan, H&P, Labs, Medications, Previous Orders Changes from previous H/P or p: No Changes General: Per HPI Eyes: No Pain, No Vision change, No Conjunctivae inflammation, No Eyelid inflammation, No Other, No Redness ENT: No Ear pain, No Ear discharge, No Nose pain, No Nose discharge, No Nose congestion, No Mouth pain, No Mouth swelling, No Throat pain, No Throat swelling, No Other Cardiovascular: No Chest Pain, No Palpitations, No Orthopnea, No Paroxysmal Noc. Dyspnea, No Edema, No Lt Headedness, No Other Respiratory: No Cough, No Dry, No Shortness of breath, No SOB with excertion, No Wheezing, No Hemoptysis, No Pleuritic Pain, No Sputum, No Other Gastrointestinal: Nausea Genitourinary: Dysuria Musculoskeletal: No other, No neck pain, No shoulder pain, No arm pain, No back pain, No hand pain, No leg pain, No foot pain Skin: No Rash, No Lesions, No Jaundice, No Bruising, No Other Objective Vitals Vital Signs Date Time Temp Pulse Resp B/P (MAP) Pulse Ox O2 Delivery O2 Flow Rate FiO2 02/22/24 06:01 79 14 144/86 (105) 94 02/22/24 04:00 98.7 98.7 02/21/24 20:00 Nasal Cannula* 1 24 Intake/Output Intake and Output 02/22/24 07:00 Intake Total 529 ml Output Total 1550 ml Balance -1021 ml Intake Oral 60 ml IV Total 469 ml Output Urine Total 1550 ml General Appearance: Alert, Oriented X3, Cooperative, Other (Encephalopathic) HEENT: Atraumatic, PERRLA Neck: Other (HD catheter to right jugular vein) Lungs: Clear to auscultation, Normal air movement Cardiovascular: Normal S1, Normal S2 Abdomen: Normal bowel sounds Genitourinary: No Apparent Abnormalities Musculoskeletal: Normal sensory function, Normal motor function Skin: Dry, Intact Psych/Mental Status: Mental status NL, Mood NL Medications Current Medications Medications Dose Ordered Sig/Desmond Route Start Time Stop Time Status Last Admin Dose Admin Acetaminophen 500 mg Q8HP PRN PO 02/13/24 13:00 Ondansetron HCl 4 mg Q6HP PRN IV 02/13/24 13:00 Docusate Sodium 100 mg BID PRN PO 02/13/24 13:00 Ceftriaxone Sodium 50 ml @ 100 mls/hr DAILY@09 IV 02/14/24 09:00 02/21/24 08:08 100 MLS/HR Tamsulosin HCl 0.4 mg QPM PO 02/13/24 18:00 02/18/24 18:40 0.4 MG Patient Own Medication 2,500 mcg DAILY PO 02/14/24 10:00 Pravastatin Sodium 20 mg HS PO 02/13/24 22:00 02/20/24 21:38 20 MG Patient Own Medication 2 mg QID PO 02/15/24 22:00 02/22/24 05:33 2 MG Calcium Acetate 667 mg TIDWMEALS PO 02/16/24 12:00 02/18/24 18:40 667 MG Warfarin Sodium RX PROTOCOL PER PHARMACY PO 02/17/24 09:00 Enoxaparin Sodium 100 mg DAILY SC 02/20/24 10:00 02/21/24 10:02 100 MG Bumetanide 1 mg BIDD IV 02/21/24 06:00 02/22/24 05:32 1 MG Amino Acids 0 ml @ 0 mls/hr PER PHARMACY IV 02/21/24 17:15 Amino Acids/ Electrolytes/ Dextrose 1,000 ml @ 41 mls/hr DAILY@2200 IV 02/21/24 22:00 02/21/24 21:29 41 MLS/HR Diagnostic Test (Pha) 1 strip Q6HR 02/22/24 00:00 02/22/24 05:32 1 STRIP Insulin Human Regular FOLLOW SLIDING SCALE Q6HR SC 02/22/24 00:00 Dextrose 50 ml UD IV 02/21/24 18:15 Laboratory Results Laboratory Tests 02/22/24 04:35 Chemistry Test 02/21/24 09:44 02/22/24 04:35 Albumin 3.1 g/dL (3.2-4.8) L 3.4 g/dL (3.2-4.8) Calcium Level 8.4 mg/dL (8.7-10.4) L 8.8 mg/dL (8.7-10.4) Total Protein 5.2 g/dL (5.7-8.2) L 5.7 g/dL (5.7-8.2) Magnesium Level 2.2 mg/dL (1.6-2.6) Phosphorus Level 5.5 mg/dL (2.4-5.1) H Lipid panel Test 02/22/24 04:35 Triglycerides Level 117 mg/dL (< 150) LFT Test 02/21/24 09:44 02/22/24 04:35 Alanine Aminotransferase (ALT) < 9 U/L (7-40) < 9 U/L (7-40) Alkaline Phosphatase 59 U/L (46-116) 66 U/L (46-116) Aspartate Amino Transferase (AST) 12 U/L (13-40) L 11 U/L (13-40) L Total Bilirubin 0.3 mg/dL (0.2-1.0) 0.4 mg/dL (0.2-1.0) HgA1c, TSH Test 02/21/24 09:44 Thyroid Stimulating Hormone (TSH) 0.62 uIU/mL (0.55-4.78) Urinalysis Test 02/13/24 09:15 02/15/24 14:15 02/21/24 09:00 Urine Hyaline Casts Mod /lpf (0 - 2) Urine Granular Casts Many /lpf (0) Urine Yeast (Budding) Occasional /hpf (None Urine Creatinine 175.39 mg/dL (30.0-125.0) H Urine Protein/Creatinine Ratio 1.86 Urine Sodium 94 mmol/L (40-220) Urine Total Protein 326.1 mg/dL (1-14) H Urine Color Brown (Yellow) H Urine Clarity Ex.turbid (Clear) Urine pH 5.0 (5.0-9.0) Urine Specific [place] 1.009 (1.001-1.035) Urine Protein 1+ (Negative) H Urine Ketones Negative (Negative) Urine Blood 3+ /uL (Negative) H Urine Nitrite Negative (Negative) Urine Bilirubin Negative (Negative) Urine Urobilinogen Normal mg/dL (Negative) Urine Leukocyte Esterase 1+ /uL (Negative) Urine RBC 429 /hpf (0 - 3) Urine WBC 95 /hpf (0 - 3) Urine WBC Clumps Present /hpf (None Seen) Urine Squamous Epithelial Cells Few /hpf (<5) Urine Bacteria Few /hpf (None Seen) H Urine Mucus Few (None Seen) Urine Glucose Normal mg/dL (Normal) Microbiology Microbiology Date/Time Source Procedure Growth Status 02/20/24 19:10 Nose MRSA Screen - Final Complete 02/19/24 23:30 Urine - [place] Urine Culture - Preliminary Resulted 02/19/24 09:26 Blood Blood Culture - Preliminary NO GROWTH AFTER 48 HOURS OF INCUBATION. Resulted Labs and/or images reviewed: Labs reviewed by me, Image(s) reviewed by me Assessment/Plan Assessment/Plan Impression: -complicated cystitis with E coli -renal calculi -hematuria -pancytopenia -history of prosthetic mitral valve replacement -primary hypertension -Parkinson disease -chronic kidney disease stage 3, acute kidney injury, probable ATN -chronic B-cell lymphoma Plan: -events: Patient is status post HD catheter placement by myself. Patient received HD yesterday, receiving HD today/this a.m.. Reports of confusion yesterday evening, now with mittens. Hemodynamically stable. -continue bridge therapy -nephrology consultation, recommendations reviewed -continue Rocephin -urology consultation : Recommendations reviewed -continue carbidopa levodopa -continue Clinimix -encourage p.o. intake -repeat labs, chest x-ray in a.m. Critical care time spent with patient discussing and formulating plan of care: 40 minutes. This does not include time spent performing procedures. This medical document was created using an electronic medical record system with [employer] dictation system. Although this document has been carefully reviewed, there may still be some phonetic and typographical errors. These areas are purely typographical due to imperfections of the software programs, and do not reflect any compromise in the patient's medical care. Plan discussed with: Patient, Other (RN) My Orders Orders - SHEA GAYTAN NP Procedure Category Date Status Time Us Guided Vascular US 02/21/24 Taken Access 14:24 Chest Xray 1 View XY 02/21/24 Resulted 14:50 Clinimix Per Pharmacy PHA 02/21/24 In Process 17:15 Amino Acid Infusion PHA 02/21/24 In Process In D10w (Clinimix 4. 22:00 Clinimix Per Pharmacy ARACELY 02/21/24 In Process 17:58 Glucose Blood PHA 02/22/24 In Process (Accu-Chek Comfort 00:00 Insulin R (Human) PHA 02/22/24 In Process (Insulin R) 00:00 Dextrose 50% Syringe PHA 02/21/24 In Process 18:15 Date of Service: Feb 22, 2024 Billing Provider: SHEA GAYTAN NP Common Visit Codes: [id number] CARE 30-74 MIN SHEA GAYTAN NP Feb 22, 2024 09:29
[2024-02-22 10:40] LABS: INR 1.13 (0.9-1.15); Prothrombin Time 11.9 sec (9.3-11.8)
--- NOTE | 2024-02-22 17:02 | DVHPN2 ---
Progress Note Date Seen: Feb 22, 2024 Has the PT tested + for MRSA If YES, has PT been informed?: No Medical Necessity Reason Pt with a Central, PICC or Fol: Yes The following are medically ne: Osullivan Catheter Reason for osullivan catheter: Bladder Retention/Obstruc, Strict I&O Subjective Patient reports: No new complaints Review of Systems: HEENT:Normal, CVS:Normal, RESPIRATORY:Normal, GI:Normal, :Normal, MSK:Normal, NEURO:Abnormal (confusion better slightly) Objective vital signs Vital Sign Date Time Temp Pulse Resp B/P (MAP) Pulse Ox O2 Delivery O2 Flow Rate FiO2 02/22/24 16:00 97.9 69 14 118/79 (92) 94 97.9 02/22/24 08:00 Nasal Cannula* 1 24 Total Intake and Output 02/21/24 02/21/24 02/22/24 15:00 23:00 07:00 Intake Total 100 ml 102 ml 368 ml Output Total 1050 ml 500 ml Balance 100 ml -948 ml -132 ml medications Current Medications Medications Dose Ordered Sig/Desmond Route Start Time Stop Time Status Last Admin Dose Admin Acetaminophen 500 mg Q8HP PRN PO 02/13/24 13:00 Ondansetron HCl 4 mg Q6HP PRN IV 02/13/24 13:00 Docusate Sodium 100 mg BID PRN PO 02/13/24 13:00 Ceftriaxone Sodium 50 ml @ 100 mls/hr DAILY@09 IV 02/14/24 09:00 02/21/24 08:08 100 MLS/HR Tamsulosin HCl 0.4 mg QPM PO 02/13/24 18:00 02/18/24 18:40 0.4 MG Patient Own Medication 2,500 mcg DAILY PO 02/14/24 10:00 Pravastatin Sodium 20 mg HS PO 02/13/24 22:00 02/20/24 21:38 20 MG Patient Own Medication 2 mg QID PO 02/15/24 22:00 02/22/24 05:33 2 MG Calcium Acetate 667 mg TIDWMEALS PO 02/16/24 12:00 02/18/24 18:40 667 MG Warfarin Sodium RX PROTOCOL PER PHARMACY PO 02/17/24 09:00 Enoxaparin Sodium 100 mg DAILY SC 02/20/24 10:00 02/22/24 13:51 100 MG Bumetanide 1 mg BIDD IV 02/21/24 06:00 02/22/24 05:32 1 MG Amino Acids 0 ml @ 0 mls/hr PER PHARMACY IV 02/21/24 17:15 Amino Acids/ Electrolytes/ Dextrose 1,000 ml @ 41 mls/hr DAILY@2200 IV 02/21/24 22:00 02/21/24 21:29 41 MLS/HR Diagnostic Test (Pha) 1 strip Q6HR 02/22/24 00:00 02/22/24 12:19 1 STRIP Insulin Human Regular FOLLOW SLIDING SCALE Q6HR SC 02/22/24 00:00 Dextrose 50 ml UD IV 02/21/24 18:15 Examination: GENERAL:Normal, HEENT:Normal, NECK:Normal, LUNGS:Normal, CVS:Normal, ABDOMEN:Normal, MSK:Normal, SKIN:Abnormal, NEURO:Normal, NEURO:Abnormal, :Normal laboratory and microbiology Laboratory Tests 02/22/24 04:35 Test 02/22/24 04:35 Range/Units Serum Glucose 94 74-106 mg/dL Microbiology Date/Time Source Procedure Growth Status 02/20/24 19:10 Nose MRSA Screen - Final Complete 02/19/24 23:30 Urine - [place] Urine Culture - Final Complete 02/19/24 09:26 Blood Blood Culture - Preliminary NO GROWTH AFTER 72 HOURS OF INCUBATION. 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 + ATN Acute urinary retention Left nonobstructing kidney stone Pyelonephritis E coli urinary tract infection Pancytopenia Prosthetic mitral valve Parkinson's disease Abdominal aortic aneurysm s/p L ureteral stent encephalopathy Recommendations HD today as mental status worse repeat bumex iv bid// dc ivf will likely need ongoing hd chairtime with dcd/ hep panel on clinimix Plan discussed with: Patient, Other Dietary Evaluation Review Comments: 1) Consider a Renal Specific K2,low phos,ROCÍO,2gmNa,80g Pro diet 2) Continue current plan of care Expected Outcomes/Goals: 1) Pt labs to improve PEDRO MONTERO MD Feb 22, 2024 17:02
[2024-02-22] MEDS: WARFARIN SODIUM 2 MG TAB PO ONE (17:39)
[2024-02-22] MEDS: ONDANSETRON HCL 4 MG/2 ML VIAL IV PRN (19:48)
[2024-02-23] VITALS (54 sets, daily range): BP systolic 122–160; BP diastolic 35–83; PULSE 62–78; RESP 10–21; TEMP 98.1–98.8; O2SAT 90–99
[2024-02-23 05:04] LABS: Basophils # (auto) 0.1 10 ^3/uL (0-0.2); Eosinophils # (auto) 0 10 ^3/uL (0-0.8); Eosinophils % (auto) 0.9 % (0.0-7.0); Hematocrit 29.6 % (41.0-53.0); Hemoglobin 10.3 g/dL (13.5-17.5); Lymphocytes # (auto) 0.8 10 ^3/uL (0.4-5.4); Lymphocytes % (auto) 14.5 % (10.0-50.0); Mean Corpuscular Hemoglobin 30.1 pg (28.0-32.0); Mean Corpuscular Hgb Conc. 34.7 g/dL (32.0-36.0); Mean Corpuscular Volume 86.8 fL (80.0-100.0); Monocytes # (auto) 0.5 10 ^3/uL (0-1.3); Monocytes % (auto) 9.6 % (0.0-12.0); Platelet Count (auto) 78 10^3/uL (140-450); Red Blood Cells 3.41 10^6/uL (4.5-5.90); Red Cell Distribution Width 13.5 % (11.8-14.3); White Blood Cell 5.5 10^3/uL (4.4-10.8)
[2024-02-23 05:16] LABS: Anion Gap 5 (5-15); Carbon Dioxide 31 mmol/L (20-31); Chloride 102 mmol/L (98-107); Potassium 4.3 mmol/L (3.5-5.1); Sodium 138 mmol/L (136-145)
[2024-02-23 05:17] LABS: Calcium 9.1 mg/dL (8.7-10.4)
[2024-02-23 05:21] LABS: Glucose 113 mg/dL (74-106)
[2024-02-23 05:22] LABS: BUN/Creatinine Ratio 19.3 (10.0-20.0); INR 1.1 (0.9-1.15); Magnesium 1.9 mg/dL (1.6-2.6); Prothrombin Time 11.6 sec (9.3-11.8)
[2024-02-23 05:24] LABS: Phosphorus 3.4 mg/dL (2.4-5.1)
[2024-02-23 05:38] LABS: Blood Urea Nitrogen 44 mg/dL (9-23)
[2024-02-23 09:22] LABS: Hepatitis B Surface Antigen Negative (Negative)
[2024-02-23 09:42] LABS: Hepatitis B Core IgM Negative
[2024-02-23 09:43] LABS: Hepatitis A Ab IgM Negative; Hepatitis C Antibody Negative (Negative)
--- NOTE | 2024-02-23 10:06 | DVHPN2 ---
Subjective Patient more alert today. Able to follow simple commands. Reviewed: Care Plan, H&P, Labs, Medications, Previous Orders Changes from previous H/P or p: Changes General: Per HPI Eyes: No Pain, No Vision change, No Conjunctivae inflammation, No Eyelid inflammation, No Other, No Redness ENT: No Ear pain, No Ear discharge, No Nose pain, No Nose discharge, No Nose congestion, No Mouth pain, No Mouth swelling, No Throat pain, No Throat swelling, No Other Cardiovascular: No Chest Pain, No Palpitations, No Orthopnea, No Paroxysmal Noc. Dyspnea, No Edema, No Lt Headedness, No Other Respiratory: No Cough, No Dry, No Shortness of breath, No SOB with excertion, No Wheezing, No Hemoptysis, No Pleuritic Pain, No Sputum, No Other Gastrointestinal: Nausea Genitourinary: Dysuria Musculoskeletal: No other, No neck pain, No shoulder pain, No arm pain, No back pain, No hand pain, No leg pain, No foot pain Skin: No Rash, No Lesions, No Jaundice, No Bruising, No Other Objective Vitals Vital Signs Date Time Temp Pulse Resp B/P (MAP) Pulse Ox O2 Delivery O2 Flow Rate FiO2 02/23/24 08:00 98.5 65 14 152/74 (100) 97 98.5 02/22/24 20:00 Nasal Cannula* 1 24 Intake/Output Intake and Output 02/23/24 07:00 Intake Total 1219 ml Output Total 950 ml Balance 269 ml Intake Oral 260 ml IV Total 959 ml Output Urine Total 950 ml General Appearance: Alert, Oriented X3, Cooperative, Other (Encephalopathic) HEENT: Atraumatic, PERRLA Neck: Other (HD catheter to right jugular vein) Lungs: Clear to auscultation, Normal air movement Cardiovascular: Normal S1, Normal S2 Abdomen: Normal bowel sounds Genitourinary: No Apparent Abnormalities Musculoskeletal: Normal sensory function, Normal motor function Skin: Dry, Intact Psych/Mental Status: Mental status NL, Mood NL Medications Current Medications Medications Dose Ordered Sig/[place] Route Start Time Stop Time Status Last Admin Dose Admin Acetaminophen 500 mg Q8HP PRN PO 02/13/24 13:00 Ondansetron HCl 4 mg Q6HP PRN IV 02/13/24 13:00 02/23/24 08:05 4 MG Docusate Sodium 100 mg BID PRN PO 02/13/24 13:00 Ceftriaxone Sodium 50 ml @ 100 mls/hr DAILY@09 IV 02/14/24 09:00 02/21/24 08:08 100 MLS/HR Tamsulosin HCl 0.4 mg QPM PO 02/13/24 18:00 02/22/24 17:39 0.4 MG Patient Own Medication 2,500 mcg DAILY PO 02/14/24 10:00 Pravastatin Sodium 20 mg HS PO 02/13/24 22:00 02/20/24 21:38 20 MG Patient Own Medication 2 mg QID PO 02/15/24 22:00 02/22/24 17:39 2 MG Calcium Acetate 667 mg TIDWMEALS PO 02/16/24 12:00 02/22/24 17:39 667 MG Warfarin Sodium RX PROTOCOL PER PHARMACY PO 02/17/24 09:00 Enoxaparin Sodium 100 mg DAILY SC 02/20/24 10:00 02/22/24 13:51 100 MG Bumetanide 1 mg BIDD IV 02/21/24 06:00 02/23/24 05:52 1 MG Amino Acids 0 ml @ 0 mls/hr PER PHARMACY IV 02/21/24 17:15 Amino Acids/ Electrolytes/ Dextrose 1,000 ml @ 41 mls/hr DAILY@2200 IV 02/21/24 22:00 02/22/24 22:48 41 MLS/HR Diagnostic Test (Pha) 1 strip Q6HR 02/22/24 00:00 02/23/24 05:52 1 STRIP Insulin Human Regular FOLLOW SLIDING SCALE Q6HR SC 02/22/24 00:00 Dextrose 50 ml UD IV 02/21/24 18:15 Laboratory Results Laboratory Tests 02/23/24 04:51 Chemistry Test 02/23/24 04:51 Calcium Level 9.1 mg/dL (8.7-10.4) Magnesium Level 1.9 mg/dL (1.6-2.6) Phosphorus Level 3.4 mg/dL (2.4-5.1) Coagulation Test 02/22/24 10:15 02/23/24 04:51 Prothrombin Time 11.9 sec (9.3-11.8) H 11.6 sec (9.3-11.8) Prothrombin Time INR 1.13 (0.9-1.15) 1.10 (0.9-1.15) Urinalysis Test 02/13/24 09:15 02/15/24 14:15 02/21/24 09:00 Urine Hyaline Casts Mod /lpf (0 - 2) Urine Granular Casts Many /lpf (0) Urine Yeast (Budding) Occasional /hpf (None Urine Creatinine 175.39 mg/dL (30.0-125.0) H Urine Protein/Creatinine Ratio 1.86 Urine Sodium 94 mmol/L (40-220) Urine Total Protein 326.1 mg/dL (1-14) H Urine Color Brown (Yellow) H Urine Clarity Ex.turbid (Clear) Urine pH 5.0 (5.0-9.0) Urine Specific [place] 1.009 (1.001-1.035) Urine Protein 1+ (Negative) H Urine Ketones Negative (Negative) Urine Blood 3+ /uL (Negative) H Urine Nitrite Negative (Negative) Urine Bilirubin Negative (Negative) Urine Urobilinogen Normal mg/dL (Negative) Urine Leukocyte Esterase 1+ /uL (Negative) Urine RBC 429 /hpf (0 - 3) Urine WBC 95 /hpf (0 - 3) Urine WBC Clumps Present /hpf (None Seen) Urine Squamous Epithelial Cells Few /hpf (<5) Urine Bacteria Few /hpf (None Seen) H Urine Mucus Few (None Seen) Urine Glucose Normal mg/dL (Normal) Microbiology Microbiology Date/Time Source Procedure Growth Status 02/20/24 19:10 Nose MRSA Screen - Final Complete 02/19/24 23:30 Urine - [place] Urine Culture - Final Complete 02/19/24 09:26 Blood Blood Culture - Preliminary NO GROWTH AFTER 72 HOURS OF INCUBATION. Resulted Labs and/or images reviewed: Labs reviewed by me, Image(s) reviewed by me Assessment/Plan Assessment/Plan Impression: -complicated cystitis with E coli -renal calculi -hematuria -pancytopenia -history of prosthetic mitral valve replacement -primary hypertension -Parkinson disease -chronic kidney disease stage 3, acute kidney injury, probable ATN -chronic B-cell lymphoma Plan: -events: Patient hemodynamically stable. Patient more alert. Patient receiving HD at this time, there treatment in three days. CBC improving. Bridge therapy started yesterday with respect to Coumadin. -continue bridge therapy -nephrology consultation, recommendations reviewed -continue Rocephin -urology consultation : Recommendations reviewed -continue carbidopa levodopa -continue Clinimix . If patient's intake improves, we will stop tomorrow. -encourage p.o. intake -repeat labs, in a.m.. Critical care time spent with patient discussing and formulating plan of care: 40 minutes. This does not include time spent performing procedures. This medical document was created using an electronic medical record system with [employer] dictation system. Although this document has been carefully reviewed, there may still be some phonetic and typographical errors. These areas are purely typographical due to imperfections of the software programs, and do not reflect any compromise in the patient's medical care. Plan discussed with: Patient, Other (RN) My Orders Orders - SHEA GAYTAN NP Procedure Category Date Status Time Coumadin Per Pharmacy ARACELY 02/22/24 In Process Protcol 17:00 Date of Service: Feb 23, 2024 Billing Provider: SHEA GAYTAN NP Common Visit Codes: [id number] CARE 30-74 MIN SHEA GAYTAN NP Feb 23, 2024 10:06
[2024-02-23] MEDS: ACETAMINOPHEN 500 MG TAB PO PRN (10:30)
[2024-02-23] MEDS: SODIUM CHL 0.9% 1000 ML BAG XX ONE (11:13)
--- NOTE | 2024-02-23 15:30 | DVHPN2 ---
Progress Note Date Seen: Feb 23, 2024 Has the PT tested + for MRSA If YES, has PT been informed?: No Medical Necessity Reason Pt with a Central, PICC or Fol: Yes The following are medically ne: Osullivan Catheter Reason for osullivan catheter: Bladder Retention/Obstruc, Strict I&O Subjective Patient reports: No new complaints, Feels better Review of Systems: HEENT:Normal, CVS:Normal, RESPIRATORY:Normal, GI:Normal, :Normal, MSK:Normal, NEURO:Normal Objective vital signs Vital Sign Date Time Temp Pulse Resp B/P (MAP) Pulse Ox O2 Delivery O2 Flow Rate FiO2 02/23/24 14:45 71 13 93 02/23/24 12:00 98.3 98.3 02/23/24 08:00 Nasal Cannula* 1 24 Total Intake and Output 02/22/24 02/22/24 02/23/24 15:00 23:00 07:00 Intake Total 328 ml 543 ml 348 ml Output Total 550 ml 400 ml Balance 328 ml -7 ml -52 ml medications Current Medications Medications Dose Ordered Sig/Desmond Route Start Time Stop Time Status Last Admin Dose Admin Acetaminophen 500 mg Q8HP PRN PO 02/13/24 13:00 02/23/24 10:30 500 MG Ondansetron HCl 4 mg Q6HP PRN IV 02/13/24 13:00 02/23/24 08:05 4 MG Docusate Sodium 100 mg BID PRN PO 02/13/24 13:00 Ceftriaxone Sodium 50 ml @ 100 mls/hr DAILY@09 IV 02/14/24 09:00 02/23/24 12:47 100 MLS/HR Tamsulosin HCl 0.4 mg QPM PO 02/13/24 18:00 02/22/24 17:39 0.4 MG Patient Own Medication 2,500 mcg DAILY PO 02/14/24 10:00 Pravastatin Sodium 20 mg HS PO 02/13/24 22:00 02/20/24 21:38 20 MG Patient Own Medication 2 mg QID PO 02/15/24 22:00 02/23/24 12:47 2 MG Calcium Acetate 667 mg TIDWMEALS PO 02/16/24 12:00 02/23/24 12:47 667 MG Warfarin Sodium RX PROTOCOL PER PHARMACY PO 02/17/24 09:00 Enoxaparin Sodium 100 mg DAILY SC 02/20/24 10:00 02/22/24 13:51 100 MG Bumetanide 1 mg BIDD IV 02/21/24 06:00 02/23/24 05:52 1 MG Amino Acids 0 ml @ 0 mls/hr PER PHARMACY IV 02/21/24 17:15 Amino Acids/ Electrolytes/ Dextrose 1,000 ml @ 41 mls/hr DAILY@2200 IV 02/21/24 22:00 02/22/24 22:48 41 MLS/HR Diagnostic Test (Pha) 1 strip Q6HR 02/22/24 00:00 02/23/24 12:00 1 STRIP Insulin Human Regular FOLLOW SLIDING SCALE Q6HR SC 02/22/24 00:00 Dextrose 50 ml UD IV 02/21/24 18:15 Examination: GENERAL:Normal, HEENT:Normal, NECK:Normal, LUNGS:Normal, CVS:Normal, ABDOMEN:Normal, MSK:Normal, SKIN:Normal, NEURO:Normal, :Normal laboratory and microbiology Laboratory Tests 02/23/24 04:51 Test 02/23/24 04:51 Range/Units Serum Glucose 113 H 74-106 mg/dL Microbiology Date/Time Source Procedure Growth Status 02/20/24 19:10 Nose MRSA Screen - Final Complete 02/19/24 23:30 Urine - [place] Urine Culture - Final Complete 02/19/24 09:26 Blood Blood Culture - Preliminary NO GROWTH AFTER 72 HOURS OF INCUBATION. 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 + ATN Acute urinary retention Left nonobstructing kidney stone Pyelonephritis E coli urinary tract infection Pancytopenia Prosthetic mitral valve Parkinson's disease Abdominal aortic aneurysm s/p L ureteral stent encephalopathy Recommendations HD today as mental status improving with HD will likely need ongoing hd for now-- IR for tunneled cath chairtime with dcd/ hep panel on clinimix Plan discussed with: Patient My Orders My Orders Orders - PEDRO MONTERO MD Procedure Category Date Status Time * On Site Soil Evaluator CONS 02/22/24 Transmitted Consult Hemodialysis Orders ORDERS 02/23/24 Transmitted 08:59 Dialysis Nursing ARACELY 02/23/24 In Process Message 10:50 Document Fluid Input ARACELY 02/23/24 In Process And Outpu 10:50 * Radiologist Consult CONS 02/23/24 Transmitted 15:28 Dietary Evaluation Review Comments: 1) Consider a Renal Specific K2,low phos,ROCÍO,2gmNa,80g Pro diet 2) Continue current plan of care Expected Outcomes/Goals: 1) Pt labs to improve PEDRO MONTERO MD Feb 23, 2024 15:30
[2024-02-23] MEDS: WARFARIN SODIUM 5 MG TAB PO ONE (17:35)
[2024-02-24] VITALS (57 sets, daily range): BP systolic 100–146; BP diastolic 46–81; PULSE 63–90; RESP 10–21; TEMP 97.7–98.9; O2SAT 84–97
[2024-02-24 05:09] LABS: Basophils # (auto) 0.1 10 ^3/uL (0-0.2); Eosinophils # (auto) 0.1 10 ^3/uL (0-0.8); Eosinophils % (auto) 1.3 % (0.0-7.0); Hematocrit 28.9 % (41.0-53.0); Lymphocytes # (auto) 0.7 10 ^3/uL (0.4-5.4); Lymphocytes % (auto) 11.3 % (10.0-50.0); Mean Corpuscular Hemoglobin 30.2 pg (28.0-32.0); Mean Corpuscular Hgb Conc. 34.6 g/dL (32.0-36.0); Mean Corpuscular Volume 87.3 fL (80.0-100.0); Monocytes # (auto) 0.7 10 ^3/uL (0-1.3); Neutrophils # (auto) 4.9 10 ^3/uL (1.6-8.6); Neutrophils % (auto) 75.4 % (37.0-80.0); Nucleated Red Blood Cells % 0.1 %; Platelet Count (auto) 74 10^3/uL (140-450); Red Blood Cells 3.31 10^6/uL (4.5-5.90); Red Cell Distribution Width 13.3 % (11.8-14.3); White Blood Cell 6.5 10^3/uL (4.4-10.8)
[2024-02-24 05:14] LABS: Chloride 102 mmol/L (98-107); Potassium 3.8 mmol/L (3.5-5.1); Sodium 139 mmol/L (136-145)
[2024-02-24 05:15] LABS: Anion Gap 4 (5-15); Calcium 8.9 mg/dL (8.7-10.4); Carbon Dioxide 33 mmol/L (20-31)
[2024-02-24 05:19] LABS: INR 1.18 (0.9-1.15); Prothrombin Time 12.4 sec (9.3-11.8)
[2024-02-24 05:20] LABS: BUN/Creatinine Ratio 15.4 (10.0-20.0); Glucose 111 mg/dL (74-106)
[2024-02-24 05:21] LABS: Magnesium 1.8 mg/dL (1.6-2.6)
[2024-02-24 05:23] LABS: Phosphorus 1.9 mg/dL (2.4-5.1)
[2024-02-24 05:25] LABS: Blood Urea Nitrogen 31 mg/dL (9-23)
[2024-02-24 08:06] LABS: Vitamin D 25-Hydroxy 25 ng/mL (.); Vitamin D-2 25-Hydroxy <1.0 ng/mL (.); Vitamin D-3 25-Hydroxy 25 ng/mL (.)
[2024-02-24] MEDS: DOCUSATE SOD 100 MG CAP PO PRN (09:04)
--- NOTE | 2024-02-24 10:57 | DVHPN2 ---
Progress Note Date Seen: Feb 24, 2024 Has the PT tested + for MRSA If YES, has PT been informed?: No Medical Necessity Reason Pt with a Central, PICC or Fol: Yes The following are medically ne: Osullivan Catheter Reason for osullivan catheter: Bladder Retention/Obstruc, Strict I&O Subjective Other Systems: Patient seen and examined by myself today in follow-up Objective vital signs Vital Sign Date Time Temp Pulse Resp B/P (MAP) Pulse Ox O2 Delivery O2 Flow Rate FiO2 02/24/24 09:00 97.7 73 19 128/62 (84) 95 97.7 02/23/24 20:00 Nasal Cannula* 1 24 Total Intake and Output 02/23/24 02/23/24 02/24/24 15:00 23:00 07:00 Intake Total 378 ml 928 ml 328 ml Output Total 350 ml 450 ml Balance 378 ml 578 ml -122 ml medications Current Medications Medications Dose Ordered Sig/Desmond Route Start Time Stop Time Status Last Admin Dose Admin Acetaminophen 500 mg Q8HP PRN PO 02/13/24 13:00 02/23/24 10:30 500 MG Ondansetron HCl 4 mg Q6HP PRN IV 02/13/24 13:00 02/24/24 06:06 4 MG Docusate Sodium 100 mg BID PRN PO 02/13/24 13:00 02/24/24 09:04 100 MG Ceftriaxone Sodium 50 ml @ 100 mls/hr DAILY@09 IV 02/14/24 09:00 02/24/24 08:29 100 MLS/HR Tamsulosin HCl 0.4 mg QPM PO 02/13/24 18:00 02/23/24 18:26 0.4 MG Patient Own Medication 2,500 mcg DAILY PO 02/14/24 10:00 Pravastatin Sodium 20 mg HS PO 02/13/24 22:00 02/23/24 21:31 20 MG Patient Own Medication 2 mg QID PO 02/15/24 22:00 02/24/24 05:57 2 MG Calcium Acetate 667 mg TIDWMEALS PO 02/16/24 12:00 02/24/24 08:28 667 MG Bumetanide 1 mg BIDD IV 02/21/24 06:00 02/24/24 05:57 1 MG Amino Acids 0 ml @ 0 mls/hr PER PHARMACY IV 02/21/24 17:15 Amino Acids/ Electrolytes/ Dextrose 1,000 ml @ 41 mls/hr DAILY@2200 IV 02/21/24 22:00 02/23/24 21:31 41 MLS/HR Diagnostic Test (Pha) 1 strip Q6HR 02/22/24 00:00 02/24/24 05:56 1 STRIP Insulin Human Regular FOLLOW SLIDING SCALE Q6HR SC 02/22/24 00:00 Dextrose 50 ml UD IV 02/21/24 18:15 Examination: LUNGS:Normal, CVS:Normal, MSK:Normal laboratory and microbiology Laboratory Tests 02/24/24 04:41 Test 02/24/24 04:41 Range/Units Serum Glucose 111 H 74-106 mg/dL Microbiology Date/Time Source Procedure Growth Status 02/20/24 19:10 Nose MRSA Screen - Final Complete 02/19/24 23:30 Urine - [place] Urine Culture - Final Complete 02/19/24 09:26 Blood Blood Culture - Final NO GROWTH AFTER 5 DAYS OF INCUBATION. Complete Problem List/Assessment/Plan Problem List/Assessment/Plan Acute kidney injury superimposed Chronic Kidney Disease 3B, secondary to ATN, FeNa > 2%, requiring intermittent hemodialysis Acute urinary retention Left nonobstructing kidney stone Pyelonephritis E coli urinary tract infection Pancytopenia Chronic diastolic heart failure Prosthetic mitral valve Parkinson's disease Abdominal aortic aneurysm Hypophosphatemia Recommendations Status post hemodialysis yesterday Increased urine output DC calcium acetate Bumex 2 mg IV b.i.d. Monitor kidney function for recovery Strict I&Os IV antibiotics We will continue to monitor Plan discussed with: Patient Dietary Evaluation Review Comments: 1) Consider a Renal Specific K2,low phos,ROCÍO,2gmNa,80g Pro diet 2) Continue current plan of care Expected Outcomes/Goals: 1) Pt labs to improve CHAVA KOHLI MD Feb 24, 2024 10:57
[2024-02-24] MEDS ORDERED: BUMETANIDE 2.5mg/10ml (0.25 mg/ml) INJ IV SCH (11:00)
[2024-02-24] MEDS: PANTOPRAZOLE 40 MG TAB PO ONE (11:46)
[2024-02-24] MEDS: ENOXAPARIN SOD 120 MG/0.8 ML SYRINGE SC ONE (11:53)
--- NOTE | 2024-02-24 12:08 | DVHPN2 ---
Subjective Patient more alert today. Able to follow simple commands. Reviewed: Care Plan, H&P, Labs, Medications, Previous Orders Changes from previous H/P or p: No Changes General: Per HPI Eyes: No Pain, No Vision change, No Conjunctivae inflammation, No Eyelid inflammation, No Other, No Redness ENT: No Ear pain, No Ear discharge, No Nose pain, No Nose discharge, No Nose congestion, No Mouth pain, No Mouth swelling, No Throat pain, No Throat swelling, No Other Cardiovascular: No Chest Pain, No Palpitations, No Orthopnea, No Paroxysmal Noc. Dyspnea, No Edema, No Lt Headedness, No Other Respiratory: No Cough, No Dry, No Shortness of breath, No SOB with excertion, No Wheezing, No Hemoptysis, No Pleuritic Pain, No Sputum, No Other Gastrointestinal: Nausea Genitourinary: Dysuria Musculoskeletal: No other, No neck pain, No shoulder pain, No arm pain, No back pain, No hand pain, No leg pain, No foot pain Skin: No Rash, No Lesions, No Jaundice, No Bruising, No Other Objective Vitals Vital Signs Date Time Temp Pulse Resp B/P (MAP) Pulse Ox O2 Delivery O2 Flow Rate FiO2 02/24/24 09:00 97.7 73 19 128/62 (84) 95 97.7 02/23/24 20:00 Nasal Cannula* 1 24 Intake/Output Intake and Output 02/24/24 07:00 Intake Total 1634 ml Output Total 800 ml Balance 834 ml Intake Oral 600 ml IV Total 1034 ml Output Urine Total 800 ml General Appearance: Alert, Oriented X3, Cooperative, Other (Encephalopathic) HEENT: Atraumatic, PERRLA Neck: Other (HD catheter to right jugular vein) Lungs: Clear to auscultation, Normal air movement Cardiovascular: Normal S1, Normal S2 Abdomen: Normal bowel sounds Genitourinary: No Apparent Abnormalities Musculoskeletal: Normal sensory function, Normal motor function Skin: Dry, Intact Psych/Mental Status: Mental status NL, Mood NL Medications Current Medications Medications Dose Ordered Sig/Desmond Route Start Time Stop Time Status Last Admin Dose Admin Acetaminophen 500 mg Q8HP PRN PO 02/13/24 13:00 02/24/24 11:46 500 MG Ondansetron HCl 4 mg Q6HP PRN IV 02/13/24 13:00 02/24/24 06:06 4 MG Docusate Sodium 100 mg BID PRN PO 02/13/24 13:00 02/24/24 09:04 100 MG Ceftriaxone Sodium 50 ml @ 100 mls/hr DAILY@09 IV 02/14/24 09:00 02/24/24 08:29 100 MLS/HR Tamsulosin HCl 0.4 mg QPM PO 02/13/24 18:00 02/23/24 18:26 0.4 MG Patient Own Medication 2,500 mcg DAILY PO 02/14/24 10:00 Pravastatin Sodium 20 mg HS PO 02/13/24 22:00 02/23/24 21:31 20 MG Patient Own Medication 2 mg QID PO 02/15/24 22:00 02/24/24 11:42 2 MG Amino Acids 0 ml @ 0 mls/hr PER PHARMACY IV 02/21/24 17:15 Amino Acids/ Electrolytes/ Dextrose 1,000 ml @ 41 mls/hr DAILY@2200 IV 02/21/24 22:00 02/23/24 21:31 41 MLS/HR Diagnostic Test (Pha) 1 strip Q6HR 02/22/24 00:00 02/24/24 11:42 1 STRIP Insulin Human Regular FOLLOW SLIDING SCALE Q6HR SC 02/22/24 00:00 Dextrose 50 ml UD IV 02/21/24 18:15 Bumetanide 2 mg BIDD IV 02/24/24 18:00 Pantoprazole Sodium 40 mg DAILY@0600 PO 02/25/24 06:00 Laboratory Results Laboratory Tests 02/24/24 04:41 Chemistry Test 02/24/24 04:41 Calcium Level 8.9 mg/dL (8.7-10.4) Magnesium Level 1.8 mg/dL (1.6-2.6) Phosphorus Level 1.9 mg/dL (2.4-5.1) L Coagulation Test 02/24/24 04:41 Prothrombin Time 12.4 sec (9.3-11.8) H Prothrombin Time INR 1.18 (0.9-1.15) H Urinalysis Test 02/13/24 09:15 02/15/24 14:15 02/21/24 09:00 Urine Hyaline Casts Mod /lpf (0 - 2) Urine Granular Casts Many /lpf (0) Urine Yeast (Budding) Occasional /hpf (None Urine Creatinine 175.39 mg/dL (30.0-125.0) H Urine Protein/Creatinine Ratio 1.86 Urine Sodium 94 mmol/L (40-220) Urine Total Protein 326.1 mg/dL (1-14) H Urine Color Brown (Yellow) H Urine Clarity Ex.turbid (Clear) Urine pH 5.0 (5.0-9.0) Urine Specific [place] 1.009 (1.001-1.035) Urine Protein 1+ (Negative) H Urine Ketones Negative (Negative) Urine Blood 3+ /uL (Negative) H Urine Nitrite Negative (Negative) Urine Bilirubin Negative (Negative) Urine Urobilinogen Normal mg/dL (Negative) Urine Leukocyte Esterase 1+ /uL (Negative) Urine RBC 429 /hpf (0 - 3) Urine WBC 95 /hpf (0 - 3) Urine WBC Clumps Present /hpf (None Seen) Urine Squamous Epithelial Cells Few /hpf (<5) Urine Bacteria Few /hpf (None Seen) H Urine Mucus Few (None Seen) Urine Glucose Normal mg/dL (Normal) Microbiology Microbiology Date/Time Source Procedure Growth Status 02/20/24 19:10 Nose MRSA Screen - Final Complete 02/19/24 23:30 Urine - [place] Urine Culture - Final Complete 02/19/24 09:26 Blood Blood Culture - Final NO GROWTH AFTER 5 DAYS OF INCUBATION. Complete Labs and/or images reviewed: Labs reviewed by me, Image(s) reviewed by me Assessment/Plan Assessment/Plan Impression: -complicated cystitis with E coli -renal calculi -hematuria -pancytopenia -history of prosthetic mitral valve replacement -primary hypertension -Parkinson disease -chronic kidney disease stage 3, acute kidney injury, probable ATN -chronic B-cell lymphoma Plan: -events: Apparently, senior financial feels the patient needs to be continued on hemodialysis as an outpatient and need to tunneled catheter. Patient was continued on both Lovenox and Coumadin, with INR currently 1.18, now procedure to be held until Tuesday. -continue Lovenox, stop heparin -nephrology consultation, recommendations reviewed -continue Rocephin -urology consultation : Recommendations reviewed -continue carbidopa levodopa -continue Clinimix . Patient continues to have poor oral intake. Continue for now -encourage p.o. intake -repeat labs, in a.m.. Critical care time spent with patient discussing and formulating plan of care: 40 minutes. This does not include time spent performing procedures. This medical document was created using an electronic medical record system with [employer] dictation system. Although this document has been carefully reviewed, there may still be some phonetic and typographical errors. These areas are purely typographical due to imperfections of the software programs, and do not reflect any compromise in the patient's medical care. Plan discussed with: Patient, Other (RN) My Orders Orders - SHEA GAYTAN NP Procedure Category Date Status Time Clinimix Per Pharmacy ARACELY 02/23/24 In Process 22:00 * Wound Consult CONS 02/24/24 Transmitted Pantoprazole Tablet PHA 02/25/24 In Process (Protonix Tablet) 06:00 Sodium Phosphates PHA 02/24/24 In Process 11:45 Renal Function Test LAB 02/25/24 Verified 05:00 Magnesium LAB 02/25/24 Verified 05:00 Clinimix Per Pharmacy ARACELY 02/24/24 In Process 22:00 Date of Service: Feb 24, 2024 Billing Provider: SHEA GAYTAN NP Common Visit Codes: [id number] INP/OBS CARE(HIGH) SHEA GAYTAN NP Feb 24, 2024 12:08
[2024-02-24] MEDS: SODIUM PHOSPHATES 20 MEQ in SODIUM CHL 0.9% 100 ML IV ONE (12:22)
[2024-02-24] MEDS: BUMETANIDE 2.5mg/10ml (0.25 mg/ml) INJ IV SCH (18:25)
[2024-02-25] VITALS (62 sets, daily range): BP systolic 113–148; BP diastolic 61–81; PULSE 61–83; RESP 9–19; TEMP 97.8–99; O2SAT 89–99
[2024-02-25] MEDS: PANTOPRAZOLE 40 MG TAB PO SCH (05:47)
[2024-02-25 06:00] LABS: Basophils # (auto) 0 10 ^3/uL (0-0.2); Basophils % (auto) 0.8 % (0.0-2.0); Eosinophils # (auto) 0.1 10 ^3/uL (0-0.8); Eosinophils % (auto) 2.3 % (0.0-7.0); Hematocrit 27.9 % (41.0-53.0); Hemoglobin 9.6 g/dL (13.5-17.5); Lymphocytes # (auto) 0.8 10 ^3/uL (0.4-5.4); Lymphocytes % (auto) 15.6 % (10.0-50.0); Mean Corpuscular Hgb Conc. 34.5 g/dL (32.0-36.0); Mean Corpuscular Volume 86.9 fL (80.0-100.0); Monocytes # (auto) 0.6 10 ^3/uL (0-1.3); Monocytes % (auto) 12.8 % (0.0-12.0); Neutrophils # (auto) 3.5 10 ^3/uL (1.6-8.6); Neutrophils % (auto) 68.5 % (37.0-80.0); Nucleated Red Blood Cells % 0.1 %; Platelet Count (auto) 65 10^3/uL (140-450); Red Blood Cells 3.21 10^6/uL (4.5-5.90); Red Cell Distribution Width 13.3 % (11.8-14.3); White Blood Cell 5.1 10^3/uL (4.4-10.8)
[2024-02-25 06:07] LABS: Potassium 3.3 mmol/L (3.5-5.1)
[2024-02-25 06:14] LABS: Magnesium 1.6 mg/dL (1.6-2.6)
[2024-02-25 06:15] LABS: Albumin 3.4 g/dL (3.2-4.8)
[2024-02-25 06:16] LABS: Phosphorus 2.3 mg/dL (2.4-5.1)
--- NOTE | 2024-02-25 09:26 | MEDREC ---
[facility] Intervention Section I [facility] Intervention: Review courses of therapy (PATIENT HAS BEEN ON CEFTRIAXONE SINCE 02/13 (DAY 12) FOR UTI - E.COLI. LABS AND VITALS ARE WNL, BLOOD CULTURE AND NEW URINE CULTURE ARE NEGATIVE. PLEASE CONSIDER D/C ANTIBIOTIC IF THERE IS NO MORE CONCERN FOR INFECTION) AIYANA PRESLEY [facility] Feb 25, 2024 09:26
--- NOTE | 2024-02-25 10:01 | DVHPN2 ---
Progress Note Date Seen: Feb 25, 2024 Has the PT tested + for MRSA If YES, has PT been informed?: No Medical Necessity Reason Pt with a Central, PICC or Fol: Yes The following are medically ne: Osullivan Catheter Reason for osullivan catheter: Bladder Retention/Obstruc, Strict I&O Subjective Patient reports: No new complaints Other Systems: Patient seen and examined by myself today in follow-up Objective vital signs Vital Sign Date Time Temp Pulse Resp B/P (MAP) Pulse Ox O2 Delivery O2 Flow Rate FiO2 02/25/24 08:30 68 13 94 02/25/24 08:00 Room Air* 0 21 02/25/24 08:00 97.8 97.8 Total Intake and Output 02/24/24 02/24/24 02/25/24 15:00 23:00 07:00 Intake Total 443.75 ml 1087.25 ml 388 ml Output Total 650 ml 700 ml Balance 443.75 ml 437.25 ml -312 ml medications Current Medications Medications Dose Ordered Sig/Desmond Route Start Time Stop Time Status Last Admin Dose Admin Acetaminophen 500 mg Q8HP PRN PO 02/13/24 13:00 02/24/24 11:46 500 MG Ondansetron HCl 4 mg Q6HP PRN IV 02/13/24 13:00 02/25/24 07:32 4 MG Docusate Sodium 100 mg BID PRN PO 02/13/24 13:00 02/24/24 09:04 100 MG Ceftriaxone Sodium 50 ml @ 100 mls/hr DAILY@09 IV 02/14/24 09:00 02/24/24 08:29 100 MLS/HR Tamsulosin HCl 0.4 mg QPM PO 02/13/24 18:00 02/24/24 18:27 0.4 MG Patient Own Medication 2,500 mcg DAILY PO 02/14/24 10:00 Pravastatin Sodium 20 mg HS PO 02/13/24 22:00 02/24/24 20:47 20 MG Patient Own Medication 2 mg QID PO 02/15/24 22:00 02/25/24 05:47 2 MG Amino Acids 0 ml @ 0 mls/hr PER PHARMACY IV 02/21/24 17:15 Amino Acids/ Electrolytes/ Dextrose 1,000 ml @ 41 mls/hr DAILY@2200 IV 02/21/24 22:00 02/24/24 20:47 41 MLS/HR Diagnostic Test (Pha) 1 strip Q6HR 02/22/24 00:00 02/25/24 05:47 1 STRIP Insulin Human Regular FOLLOW SLIDING SCALE Q6HR SC 02/22/24 00:00 Dextrose 50 ml UD IV 02/21/24 18:15 Bumetanide 2 mg BIDD IV 02/24/24 18:00 02/25/24 05:46 2 MG Pantoprazole Sodium 40 mg DAILY@0600 PO 02/25/24 06:00 02/25/24 05:47 40 MG Examination: LUNGS:Normal, CVS:Normal, MSK:Normal laboratory and microbiology Laboratory Tests 02/25/24 05:00 Test 02/25/24 05:00 Range/Units Serum Glucose 89 74-106 mg/dL Microbiology Date/Time Source Procedure Growth Status 02/20/24 19:10 Nose MRSA Screen - Final Complete 02/19/24 23:30 Urine - [place] Urine Culture - Final Complete 02/19/24 09:26 Blood Blood Culture - Final NO GROWTH AFTER 5 DAYS OF INCUBATION. Complete Problem List/Assessment/Plan Problem List/Assessment/Plan Acute kidney injury superimposed Chronic Kidney Disease 3B, secondary to ATN, FeNa > 2%, requiring intermittent hemodialysis Acute urinary retention Left nonobstructing kidney stone Pyelonephritis E coli urinary tract infection Pancytopenia Chronic diastolic heart failure Prosthetic mitral valve Parkinson's disease Abdominal aortic aneurysm Hypophosphatemia Recommendations Kidney function slightly improved off hemodialysis Increased urine output DC calcium acetate due to hypophosphatemia Bumex 2 mg IV b.i.d. Monitor kidney function for recovery Strict I&Os IV antibiotics We will continue to monitor Plan discussed with: Patient My Orders My Orders Orders - CHAVA KOHLI MD Procedure Category Date Status Time Bumetanide Injection PHA 02/24/24 In Process (Bumex Injection) 18:00 Dietary Evaluation Review Comments: 1) Consider a Renal Specific K2,low phos,ROCÍO,2gmNa,80g Pro diet 2) Continue current plan of care Expected Outcomes/Goals: 1) Pt labs to improve CHAVA KOHLI MD Feb 25, 2024 10:01
[2024-02-25] MEDS: MAGNESIUM SULFATE 1GM/100ML 100 ML IV SCH (11:12)
[2024-02-25] MEDS: POTASSIUM CHL 20MEQ/100ML 100 ML IV SCH (11:12)
--- NOTE | 2024-02-25 13:11 | DVHPN2 ---
Subjective Total critical care time spent on this patient more than 30 minutes including evaluation, chart review, formulating plan and communication with team, excluding any procedures Reviewed: Care Plan, H&P, Labs, Medications, Previous Orders Changes from previous H/P or p: No Changes General: Per HPI Eyes: No Pain, No Vision change, No Conjunctivae inflammation, No Eyelid inflammation, No Other, No Redness ENT: No Ear pain, No Ear discharge, No Nose pain, No Nose discharge, No Nose congestion, No Mouth pain, No Mouth swelling, No Throat pain, No Throat swelling, No Other Cardiovascular: No Chest Pain, No Palpitations, No Orthopnea, No Paroxysmal Noc. Dyspnea, No Edema, No Lt Headedness, No Other Respiratory: No Cough, No Dry, No Shortness of breath, No SOB with excertion, No Wheezing, No Hemoptysis, No Pleuritic Pain, No Sputum, No Other Gastrointestinal: Nausea Genitourinary: Dysuria Musculoskeletal: No other, No neck pain, No shoulder pain, No arm pain, No back pain, No hand pain, No leg pain, No foot pain Skin: No Rash, No Lesions, No Jaundice, No Bruising, No Other Objective Vitals Vital Signs Date Time Temp Pulse Resp B/P (MAP) Pulse Ox O2 Delivery O2 Flow Rate FiO2 02/25/24 12:00 98.5 66 14 139/81 (100) 96 98.5 02/25/24 08:00 Room Air* 0 21 Intake/Output Intake and Output 02/25/24 07:00 Intake Total 1919.00 ml Output Total 1350 ml Balance 569.00 ml Intake Oral 780 ml IV Total 1139.00 ml Output Urine Total 1350 ml General Appearance: Alert, Oriented X3, Cooperative, Other (Encephalopathic) HEENT: Atraumatic, PERRLA Neck: Other (HD catheter to right jugular vein) Lungs: Clear to auscultation, Normal air movement Cardiovascular: Normal S1, Normal S2 Abdomen: Normal bowel sounds Genitourinary: No Apparent Abnormalities Musculoskeletal: Normal sensory function, Normal motor function Skin: Dry, Intact Psych/Mental Status: Mental status NL, Mood NL Medications Current Medications Medications Dose Ordered Sig/Desmond Route Start Time Stop Time Status Last Admin Dose Admin Acetaminophen 500 mg Q8HP PRN PO 02/13/24 13:00 02/24/24 11:46 500 MG Ondansetron HCl 4 mg Q6HP PRN IV 02/13/24 13:00 02/25/24 07:32 4 MG Docusate Sodium 100 mg BID PRN PO 02/13/24 13:00 02/24/24 09:04 100 MG Ceftriaxone Sodium 50 ml @ 100 mls/hr DAILY@09 IV 02/14/24 09:00 02/25/24 09:00 100 MLS/HR Tamsulosin HCl 0.4 mg QPM PO 02/13/24 18:00 02/24/24 18:27 0.4 MG Patient Own Medication 2,500 mcg DAILY PO 02/14/24 10:00 Pravastatin Sodium 20 mg HS PO 02/13/24 22:00 02/24/24 20:47 20 MG Patient Own Medication 2 mg QID PO 02/15/24 22:00 02/25/24 12:12 2 MG Amino Acids 0 ml @ 0 mls/hr PER PHARMACY IV 02/21/24 17:15 Amino Acids/ Electrolytes/ Dextrose 1,000 ml @ 41 mls/hr DAILY@2200 IV 02/21/24 22:00 02/24/24 20:47 41 MLS/HR Diagnostic Test (Pha) 1 strip Q6HR 02/22/24 00:00 02/25/24 12:12 1 STRIP Insulin Human Regular FOLLOW SLIDING SCALE Q6HR SC 02/22/24 00:00 Dextrose 50 ml UD IV 02/21/24 18:15 Bumetanide 2 mg BIDD IV 02/24/24 18:00 02/25/24 05:46 2 MG Pantoprazole Sodium 40 mg DAILY@0600 PO 02/25/24 06:00 02/25/24 05:47 40 MG Potassium Chloride 100 ml @ 50 mls/hr Q2H IV 02/25/24 10:15 02/25/24 14:14 02/25/24 12:54 50 MLS/HR Laboratory Results Laboratory Tests 02/25/24 05:00 Chemistry Test 02/25/24 05:00 Albumin 3.4 g/dL (3.2-4.8) Calcium Level 9.0 mg/dL (8.7-10.4) Magnesium Level 1.6 mg/dL (1.6-2.6) Phosphorus Level Pending Urinalysis Test 02/13/24 09:15 02/15/24 14:15 02/21/24 09:00 Urine Hyaline Casts Mod /lpf (0 - 2) Urine Granular Casts Many /lpf (0) Urine Yeast (Budding) Occasional /hpf (None Urine Creatinine 175.39 mg/dL (30.0-125.0) H Urine Protein/Creatinine Ratio 1.86 Urine Sodium 94 mmol/L (40-220) Urine Total Protein 326.1 mg/dL (1-14) H Urine Color Brown (Yellow) H Urine Clarity Ex.turbid (Clear) Urine pH 5.0 (5.0-9.0) Urine Specific [place] 1.009 (1.001-1.035) Urine Protein 1+ (Negative) H Urine Ketones Negative (Negative) Urine Blood 3+ /uL (Negative) H Urine Nitrite Negative (Negative) Urine Bilirubin Negative (Negative) Urine Urobilinogen Normal mg/dL (Negative) Urine Leukocyte Esterase 1+ /uL (Negative) Urine RBC 429 /hpf (0 - 3) Urine WBC 95 /hpf (0 - 3) Urine WBC Clumps Present /hpf (None Seen) Urine Squamous Epithelial Cells Few /hpf (<5) Urine Bacteria Few /hpf (None Seen) H Urine Mucus Few (None Seen) Urine Glucose Normal mg/dL (Normal) Microbiology Microbiology Date/Time Source Procedure Growth Status 02/20/24 19:10 Nose MRSA Screen - Final Complete 02/19/24 23:30 Urine - [place] Urine Culture - Final Complete 02/19/24 09:26 Blood Blood Culture - Final NO GROWTH AFTER 5 DAYS OF INCUBATION. Complete Labs and/or images reviewed: Labs reviewed by me, Image(s) reviewed by me Assessment/Plan Assessment/Plan Complicated cystitis Renal calculi Hematuria Pancytopenia Status post MVR Hypertension Parkinson's disease WILLARD on CKD, likely ATN Chronic B-cell lymphoma Nephro consult appreciated We will her PermCath for now, if patient is improving might not need dialysis yet Continue with ceftriaxone Continue rest of medication Encouraged patient to complete his meals, and ensures, once he finished more than a 3rd of his meal we will stop Clinimix Lines Right IJ dialysis catheter Diet mechanical soft DVT prophylaxis Lovenox Condition critical Prognosis poor Plan discussed with: Patient Date of Service: Feb 25, 2024 Billing Provider: ESE REIS MD Common Visit Codes: [id number] INP/OBS CARE(HIGH), [id number] CARE 30-74 MIN ESE REIS MD Feb 25, 2024 13:11
[2024-02-25] MEDS: SODIUM PHOSPHATES 20 MEQ in SODIUM CHL 0.9% 100 ML IV ONE (13:56)
--- NOTE | 2024-02-25 19:28 | DVHPN2 ---
Progress Note - Dictate Date Seen: Feb 25, 2024 Has the PT tested + for MRSA If YES, has PT been informed?: No Medical Necessity Reason Pt with a Central, PICC or Fol: Yes The following are medically ne: Osullivan Catheter Reason for osullivan catheter: Bladder Retention/Obstruc, Strict I&O Subjective Patient seen and examined at bedside. Breathing comfortably on room air. Overnight events reviewed. HPI: The patient is an 78-year-old man with PMHx of HTN, hyperlipidemia, anemia, Parkinson's disease, chronic renal insufficiency, renal calculi, thrombocytopenia, chronic UTIs, and hematuria who presented to the ED on 02/13/24 with complaints of worsening dysuria and hematuria. The patient's son, who accompanied the patient, also reported pt having worsening forgetfulness and generalized weakness. Pt c/o nausea over past several days. Patient has hx of mitral valve replacement approximately 20 years ago with current anticoagulation with Coumadin. Denied any fevers, chills or any other associated symptoms. Review of Systems: 14-point review of systems negative unless otherwise noted above. Past Medical History: HTN, hyperlipidemia, anemia, Parkinson's disease, chronic renal insufficiency, renal calculi, thrombocytopenia, chronic UTIs, and hematuria Past Surgical History: Mitral valve replacement approximately 20 years ago, Total knee replacement (Bilateral) Medications: Reviewed. Allergies: Ciprofloxacin Sulfa Antibiotics Family History: Arthritis. Social History: Nonsmoker. No alcohol or illicit drug use. vital signs Vital Sign Date Time Temp Pulse Resp B/P (MAP) Pulse Ox O2 Delivery O2 Flow Rate FiO2 02/25/24 19:15 66 16 94 02/25/24 16:00 99.0 99.0 02/25/24 08:00 Room Air* 0 21 Total Intake and Output 02/24/24 02/24/24 02/25/24 15:00 23:00 07:00 Intake Total 443.75 ml 1087.25 ml 388 ml Output Total 650 ml 700 ml Balance 443.75 ml 437.25 ml -312 ml medications Current Medications Medications Dose Ordered Sig/Desmond Route Start Time Stop Time Status Last Admin Dose Admin Acetaminophen 500 mg Q8HP PRN PO 02/13/24 13:00 02/24/24 11:46 500 MG Ondansetron HCl 4 mg Q6HP PRN IV 02/13/24 13:00 02/25/24 07:32 4 MG Docusate Sodium 100 mg BID PRN PO 02/13/24 13:00 02/24/24 09:04 100 MG Ceftriaxone Sodium 50 ml @ 100 mls/hr DAILY@09 IV 02/14/24 09:00 02/25/24 09:00 100 MLS/HR Tamsulosin HCl 0.4 mg QPM PO 02/13/24 18:00 02/25/24 17:52 0.4 MG Patient Own Medication 2,500 mcg DAILY PO 02/14/24 10:00 Pravastatin Sodium 20 mg HS PO 02/13/24 22:00 02/24/24 20:47 20 MG Patient Own Medication 2 mg QID PO 02/15/24 22:00 02/25/24 17:52 2 MG Amino Acids 0 ml @ 0 mls/hr PER PHARMACY IV 02/21/24 17:15 Amino Acids/ Electrolytes/ Dextrose 1,000 ml @ 41 mls/hr DAILY@2200 IV 02/21/24 22:00 02/24/24 20:47 41 MLS/HR Diagnostic Test (Pha) 1 strip Q6HR 02/22/24 00:00 02/25/24 17:52 1 STRIP Insulin Human Regular FOLLOW SLIDING SCALE Q6HR SC 02/22/24 00:00 Dextrose 50 ml UD IV 02/21/24 18:15 Bumetanide 2 mg BIDD IV 02/24/24 18:00 02/25/24 17:51 2 MG Pantoprazole Sodium 40 mg DAILY@0600 PO 02/25/24 06:00 02/25/24 05:47 40 MG objective Gen.: Patient lying in bed in no apparent distress. Breathing on room air. Head: Normocephalic, atraumatic. Eyes: EOMI/PERRLA. Ears: Normal hearing. Normal anatomy. Neck/trachea: Trachea midline, supple. Nose: Normal external anatomy. Mouth: Moist mucous membranes. Chest: Decreased air entry bilaterally. No wheezing or rhonchi. Cardiovascular: Positive S1, positive S2. Regular rate and rhythm. Abdomen: Positive bowel sounds in all 4 quadrants. Soft, non-tender, non- distended. : Deferred. Rectal: Deferred. Skin: Warm, dry. Intact. Extremities: 2+ radial pulses bilaterally. No lower extremity edema. Neuro: Awake, alert, oriented x3. No gross motor or sensory deficits. Cranial nerves II through XII intact. Gait not assessed. laboratory and microbiology Laboratory Tests 02/25/24 05:00 Test 02/25/24 05:00 Range/Units Serum Glucose 89 74-106 mg/dL Assessment/Plan Impression: Complicated cystitis Renal calculi Hematuria Pancytopenia Status post MVR Hypertension Parkinson's disease WILLARD on CKD, likely ATN Chronic B-cell lymphoma Plan: Supplemental oxygen PRN Titrate to keep O2 sats above 92%. Tunneled catheter planned on Tuesday Continue antibiotics - ceftriaxone Incentive spirometry Diurese to euvolemia w/ Bumex Monitor renal function. Monitor electrolytes. Supplement as necessary. Monitor ins and outs. F/u Nephrology recommendations GI prophylaxis w/ Protonix DVT prophylaxis w/ Lovenox Prognosis: Poor given patient's multiple co-morbidities. Rest of plan per hospitalist and other consultants. Thank you Heber Hernandez NP, for allowing me to participate in this patient's care. Further recommendations will depend on the patient's clinical course. Please do not hesitate to contact me if you have any questions or concerns. This medical document was created using an electronic medical record system with [employer] dictation system. Although these documentations are being carefully reviewed, there may still be some phonetic and typographical changes. The errors are purely typographical, due to imperfection on the software program, and do not reflect any compromise in the patient's medical care. Dietary Evaluation Review Comments: 1) Consider a Renal Specific K2,low phos,ROCÍO,2gmNa,80g Pro diet 2) Continue current plan of care Expected Outcomes/Goals: 1) Pt labs to improve Plan discussed with: Patient, Other (AUBRIE Velázquez) SOL MOULTON MD Feb 25, 2024 19:28
[2024-02-26] VITALS (25 sets, daily range): BP systolic 97–147; BP diastolic 40–81; PULSE 61–102; RESP 9–22; TEMP 97.9–99.4; O2SAT 91–98
[2024-02-26 06:11] LABS: Albumin 3.5 g/dL (3.2-4.8); Alkaline Phosphatase 61 U/L (46-116); Anion Gap 6 (5-15); Aspartate Aminotransferase 20 U/L (13-40); BUN/Creatinine Ratio 20.9 (10.0-20.0); Bilirubin, Total 0.5 mg/dL (0.2-1.0); Blood Urea Nitrogen 39 mg/dL (9-23); Calcium 9.2 mg/dL (8.7-10.4); Carbon Dioxide 30 mmol/L (20-31); Chloride 101 mmol/L (98-107); Glucose 101 mg/dL (74-106); Potassium 3.6 mmol/L (3.5-5.1); Sodium 137 mmol/L (136-145); Total Protein 5.5 g/dL (5.7-8.2)
[2024-02-26 06:18] LABS: Alanine Aminotransferase < 9 U/L (7-40)
[2024-02-26 06:22] LABS: Basophils # (auto) 0.1 10 ^3/uL (0-0.2); Eosinophils # (auto) 0.1 10 ^3/uL (0-0.8); Eosinophils % (auto) 2.5 % (0.0-7.0); Hematocrit 26.8 % (41.0-53.0); Hemoglobin 9.4 g/dL (13.5-17.5); Lymphocytes # (auto) 0.8 10 ^3/uL (0.4-5.4); Lymphocytes % (auto) 16.7 % (10.0-50.0); Mean Corpuscular Hemoglobin 30.3 pg (28.0-32.0); Mean Corpuscular Hgb Conc. 35.1 g/dL (32.0-36.0); Mean Corpuscular Volume 86.3 fL (80.0-100.0); Monocytes # (auto) 0.7 10 ^3/uL (0-1.3); Monocytes % (auto) 12.9 % (0.0-12.0); Neutrophils # (auto) 3.4 10 ^3/uL (1.6-8.6); Neutrophils % (auto) 66.9 % (37.0-80.0); Nucleated Red Blood Cells % 0.2 %; Platelet Count (auto) 68 10^3/uL (140-450); Red Blood Cells 3.11 10^6/uL (4.5-5.90); Red Cell Distribution Width 13.5 % (11.8-14.3); White Blood Cell 5.1 10^3/uL (4.4-10.8)
--- NOTE | 2024-02-26 10:05 | DVHPN2 ---
Progress Note Date Seen: Feb 26, 2024 Has the PT tested + for MRSA If YES, has PT been informed?: No Medical Necessity Reason Pt with a Central, PICC or Fol: Yes The following are medically ne: Osullivan Catheter Reason for osullivan catheter: Bladder Retention/Obstruc, Strict I&O Subjective Patient reports: No new complaints Other Systems: Patient seen and examined by myself today on rounds Objective vital signs Vital Sign Date Time Temp Pulse Resp B/P (MAP) Pulse Ox O2 Delivery O2 Flow Rate FiO2 02/26/24 09:00 68 17 121/67 (85) 94 02/26/24 08:00 99.4 99.4 02/26/24 08:00 Room Air* 0 21 Total Intake and Output 02/25/24 02/25/24 02/26/24 15:00 23:00 07:00 Intake Total 867.25 ml 763.75 ml 368 ml Output Total 1100 ml 625 ml 1450 ml Balance -232.75 ml 138.75 ml -1082 ml medications Current Medications Medications Dose Ordered Sig/Desmond Route Start Time Stop Time Status Last Admin Dose Admin Acetaminophen 500 mg Q8HP PRN PO 02/13/24 13:00 02/25/24 22:32 500 MG Ondansetron HCl 4 mg Q6HP PRN IV 02/13/24 13:00 02/25/24 07:32 4 MG Docusate Sodium 100 mg BID PRN PO 02/13/24 13:00 02/24/24 09:04 100 MG Ceftriaxone Sodium 50 ml @ 100 mls/hr DAILY@09 IV 02/14/24 09:00 02/26/24 08:31 100 MLS/HR Tamsulosin HCl 0.4 mg QPM PO 02/13/24 18:00 02/25/24 17:52 0.4 MG Patient Own Medication 2,500 mcg DAILY PO 02/14/24 10:00 Pravastatin Sodium 20 mg HS PO 02/13/24 22:00 02/25/24 21:46 20 MG Patient Own Medication 2 mg QID PO 02/15/24 22:00 02/26/24 08:30 2 MG Amino Acids 0 ml @ 0 mls/hr PER PHARMACY IV 02/21/24 17:15 Amino Acids/ Electrolytes/ Dextrose 1,000 ml @ 41 mls/hr DAILY@2200 IV 02/21/24 22:00 11/9/24 21:46 41 MLS/HR Diagnostic Test (Pha) 1 strip Q6HR 02/22/24 00:00 02/26/24 07:00 1 STRIP Insulin Human Regular FOLLOW SLIDING SCALE Q6HR SC 02/22/24 00:00 Dextrose 50 ml UD IV 02/21/24 18:15 Bumetanide 2 mg BIDD IV 02/24/24 18:00 02/26/24 07:01 2 MG Pantoprazole Sodium 40 mg DAILY@0600 PO 02/25/24 06:00 02/26/24 07:00 40 MG Examination: LUNGS:Normal, CVS:Normal, MSK:Normal laboratory and microbiology Laboratory Tests 02/26/24 05:14 Test 02/26/24 05:14 Range/Units Serum Glucose 101 74-106 mg/dL Microbiology Date/Time Source Procedure Growth Status 02/20/24 19:10 Nose MRSA Screen - Final Complete 02/19/24 23:30 Urine - Os[place] Port Urine Culture - Final Complete 02/19/24 09:26 Blood Blood Culture - Final NO GROWTH AFTER 5 DAYS OF INCUBATION. Complete Problem List/Assessment/Plan Problem List/Assessment/Plan Acute kidney injury superimposed Chronic Kidney Disease 3B, secondary to ATN, FeNa > 2%, requiring intermittent hemodialysis Acute urinary retention Left nonobstructing kidney stone Pyelonephritis E coli urinary tract infection Pancytopenia Chronic diastolic heart failure Prosthetic mitral valve Parkinson's disease Abdominal aortic aneurysm Hypophosphatemia Recommendations Kidney function continues to improve off hemodialysis Increased urine output DC calcium acetate due to hypophosphatemia Bumex 2 mg IV b.i.d. Remove right IJ Wilder catheter, no further hemodialysis Strict I&Os IV antibiotics We will continue to monitor Plan discussed with: Patient My Orders My Orders Orders - CHAVA KOHLI MD Procedure Category Date Status Time Communication Order ORDERS 02/26/24 Verified 10:03 Dietary Evaluation Review Comments: 1) Consider a Renal Specific K2,low phos,ROCÍO,2gmNa,80g Pro diet 2) Continue current plan of care Expected Outcomes/Goals: 1) Pt labs to improve CHAVA KOHLI MD Feb 26, 2024 10:05
--- NOTE | 2024-02-26 18:33 | DVHPN2 ---
Progress Note - Dictate Date Seen: Feb 26, 2024 Has the PT tested + for MRSA If YES, has PT been informed?: No Medical Necessity Reason Pt with a Central, PICC or Fol: Yes The following are medically ne: Osullivan Catheter Reason for osullivan catheter: Bladder Retention/Obstruc, Strict I&O Subjective Patient seen and examined at bedside. Breathing comfortably on room air. Overnight events reviewed. HPI: The patient is an 78-year-old man with PMHx of HTN, hyperlipidemia, anemia, Parkinson's disease, chronic renal insufficiency, renal calculi, thrombocytopenia, chronic UTIs, and hematuria who presented to the ED on 02/13/24 with complaints of worsening dysuria and hematuria. The patient's son, who accompanied the patient, also reported pt having worsening forgetfulness and generalized weakness. Pt c/o nausea over past several days. Patient has hx of mitral valve replacement approximately 20 years ago with current anticoagulation with Coumadin. Denied any fevers, chills or any other associated symptoms. Review of Systems: 14-point review of systems negative unless otherwise noted above. Past Medical History: HTN, hyperlipidemia, anemia, Parkinson's disease, chronic renal insufficiency, renal calculi, thrombocytopenia, chronic UTIs, and hematuria Past Surgical History: Mitral valve replacement approximately 20 years ago, Total knee replacement (Bilateral) Medications: Reviewed. Allergies: Ciprofloxacin Sulfa Antibiotics Family History: Arthritis. Social History: Nonsmoker. No alcohol or illicit drug use. vital signs Vital Sign Date Time Temp Pulse Resp B/P (MAP) Pulse Ox O2 Delivery O2 Flow Rate FiO2 02/26/24 18:00 74 18 141/81 (101) 97 02/26/24 16:00 97.9 97.9 02/26/24 08:00 Room Air* 0 21 Total Intake and Output 02/25/24 02/25/24 02/26/24 15:00 23:00 07:00 Intake Total 867.25 ml 763.75 ml 368 ml Output Total 1100 ml 625 ml 1450 ml Balance -232.75 ml 138.75 ml -1082 ml medications Current Medications Medications Dose Ordered Sig/Desmond Route Start Time Stop Time Status Last Admin Dose Admin Acetaminophen 500 mg Q8HP PRN PO 02/13/24 13:00 02/25/24 22:32 500 MG Ondansetron HCl 4 mg Q6HP PRN IV 02/13/24 13:00 11/9/24 07:32 4 MG Docusate Sodium 100 mg BID PRN PO 02/13/24 13:00 02/26/24 12:15 100 MG Ceftriaxone Sodium 50 ml @ 100 mls/hr DAILY@09 IV 02/14/24 09:00 02/26/24 08:31 100 MLS/HR Tamsulosin HCl 0.4 mg QPM PO 02/13/24 18:00 02/26/24 17:09 0.4 MG Patient Own Medication 2,500 mcg DAILY PO 02/14/24 10:00 Pravastatin Sodium 20 mg HS PO 02/13/24 22:00 02/25/24 21:46 20 MG Patient Own Medication 2 mg QID PO 02/15/24 22:00 02/26/24 17:09 2 MG Amino Acids 0 ml @ 0 mls/hr PER PHARMACY IV 02/21/24 17:15 Amino Acids/ Electrolytes/ Dextrose 1,000 ml @ 41 mls/hr DAILY@2200 IV 02/21/24 22:00 02/25/24 21:46 41 MLS/HR Diagnostic Test (Pha) 1 strip Q6HR 02/22/24 00:00 02/26/24 17:11 1 STRIP Insulin Human Regular FOLLOW SLIDING SCALE Q6HR SC 02/22/24 00:00 Dextrose 50 ml UD IV 02/21/24 18:15 Bumetanide 2 mg BIDD IV 02/24/24 18:00 02/26/24 17:11 2 MG Pantoprazole Sodium 40 mg DAILY@0600 PO 02/25/24 06:00 02/26/24 07:00 40 MG objective Gen.: Patient lying in bed in no apparent distress. Breathing on room air. Head: Normocephalic, atraumatic. Eyes: EOMI/PERRLA. Ears: Normal hearing. Normal anatomy. Neck/trachea: Trachea midline, supple. Nose: Normal external anatomy. Mouth: Moist mucous membranes. Chest: Decreased air entry bilaterally. No wheezing or rhonchi. Cardiovascular: Positive S1, positive S2. Regular rate and rhythm. Abdomen: Positive bowel sounds in all 4 quadrants. Soft, non-tender, non- distended. : Deferred. Rectal: Deferred. Skin: Warm, dry. Intact. Extremities: 2+ radial pulses bilaterally. No lower extremity edema. Neuro: Awake, alert, oriented x3. No gross motor or sensory deficits. Cranial nerves II through XII intact. Gait not assessed. laboratory and microbiology Laboratory Tests 02/26/24 05:14 Test 02/26/24 05:14 Range/Units Serum Glucose 101 74-106 mg/dL Assessment/Plan Impression: Complicated cystitis Renal calculi Hematuria Pancytopenia Status post MVR Hypertension Parkinson's disease WILLARD on CKD, likely ATN Chronic B-cell lymphoma Obesity, BMI 32.9 Plan: Supplemental oxygen PRN Titrate to keep O2 sats above 92%. Tunneled catheter planned on Tuesday Continue antibiotics - ceftriaxone Incentive spirometry Diurese to euvolemia w/ Bumex Monitor renal function. Monitor electrolytes. Supplement as necessary. Monitor ins and outs. F/u Nephrology recommendations GI prophylaxis w/ Protonix DVT prophylaxis w/ Lovenox Prognosis: Poor given patient's multiple co-morbidities. Rest of plan per hospitalist and other consultants. Thank you Heber Hernandez NP, for allowing me to participate in this patient's care. Further recommendations will depend on the patient's clinical course. Please do not hesitate to contact me if you have any questions or concerns. This medical document was created using an electronic medical record system with [employer] computerized dictation system. Although these documentations are being carefully reviewed, there may still be some phonetic and typographical changes. The errors are purely typographical, due to imperfection on the software program, and do not reflect any compromise in the patient's medical care. Dietary Evaluation Review Comments: 1) Consider a Renal Specific K2,low phos,ROCÍO,2gmNa,80g Pro diet 2) Continue current plan of care Expected Outcomes/Goals: 1) Pt labs to improve Plan discussed with: Other (RN, MD) SOL MOULTON MD Feb 26, 2024 18:33
--- NOTE | 2024-02-26 19:11 | DVHPN2 ---
Subjective patient seen by me during rounds not finishing food. will hold permacath as per nephro might not need to continue HD. will add remeron for sleep and appetite. on clinimix Total critical care time spent on this patient more than 30 minutes including evaluation, chart review, formulating plan and communication with team, excluding any procedures Reviewed: Care Plan, H&P, Labs, Medications, Previous Orders Changes from previous H/P or p: No Changes General: Per HPI Eyes: No Pain, No Vision change, No Conjunctivae inflammation, No Eyelid inflammation, No Other, No Redness ENT: No Ear pain, No Ear discharge, No Nose pain, No Nose discharge, No Nose congestion, No Mouth pain, No Mouth swelling, No Throat pain, No Throat swelling, No Other Cardiovascular: No Chest Pain, No Palpitations, No Orthopnea, No Paroxysmal Noc. Dyspnea, No Edema, No Lt Headedness, No Other Respiratory: No Cough, No Dry, No Shortness of breath, No SOB with excertion, No Wheezing, No Hemoptysis, No Pleuritic Pain, No Sputum, No Other Gastrointestinal: Nausea Genitourinary: Dysuria Musculoskeletal: No other, No neck pain, No shoulder pain, No arm pain, No back pain, No hand pain, No leg pain, No foot pain Skin: No Rash, No Lesions, No Jaundice, No Bruising, No Other Objective Vitals Vital Signs Date Time Temp Pulse Resp B/P (MAP) Pulse Ox O2 Delivery O2 Flow Rate FiO2 02/26/24 18:00 74 18 141/81 (101) 97 02/26/24 16:00 97.9 97.9 02/26/24 08:00 Room Air* 0 21 Intake/Output Intake and Output 02/26/24 07:00 Intake Total 1999.00 ml Output Total 3175 ml Balance -1176.00 ml Intake Oral 520 ml IV Total 1479.00 ml Output Urine Total 3175 ml # Bowel Movements 1 General Appearance: Alert, Oriented X3, Cooperative, Other (Encephalopathic) HEENT: Atraumatic, PERRLA Neck: Other (HD catheter to right jugular vein) Lungs: Clear to auscultation, Normal air movement Cardiovascular: Normal S1, Normal S2 Abdomen: Normal bowel sounds Genitourinary: No Apparent Abnormalities Musculoskeletal: Normal sensory function, Normal motor function Skin: Dry, Intact Psych/Mental Status: Mental status NL, Mood NL Medications Current Medications Medications Dose Ordered Sig/Desmond Route Start Time Stop Time Status Last Admin Dose Admin Acetaminophen 500 mg Q8HP PRN PO 02/13/24 13:00 02/25/24 22:32 500 MG Ondansetron HCl 4 mg Q6HP PRN IV 02/13/24 13:00 02/25/24 07:32 4 MG Docusate Sodium 100 mg BID PRN PO 02/13/24 13:00 02/26/24 12:15 100 MG Ceftriaxone Sodium 50 ml @ 100 mls/hr DAILY@09 IV 02/14/24 09:00 02/26/24 08:31 100 MLS/HR Tamsulosin HCl 0.4 mg QPM PO 02/13/24 18:00 02/26/24 17:09 0.4 MG Patient Own Medication 2,500 mcg DAILY PO 02/14/24 10:00 Pravastatin Sodium 20 mg HS PO 02/13/24 22:00 02/25/24 21:46 20 MG Patient Own Medication 2 mg QID PO 02/15/24 22:00 02/26/24 17:09 2 MG Amino Acids 0 ml @ 0 mls/hr PER PHARMACY IV 02/21/24 17:15 Amino Acids/ Electrolytes/ Dextrose 1,000 ml @ 41 mls/hr DAILY@2200 IV 02/21/24 22:00 02/25/24 21:46 41 MLS/HR Diagnostic Test (Pha) 1 strip Q6HR 02/22/24 00:00 02/26/24 17:11 1 STRIP Insulin Human Regular FOLLOW SLIDING SCALE Q6HR SC 02/22/24 00:00 Dextrose 50 ml UD IV 02/21/24 18:15 Bumetanide 2 mg BIDD IV 02/24/24 18:00 02/26/24 17:11 2 MG Pantoprazole Sodium 40 mg DAILY@0600 PO 02/25/24 06:00 02/26/24 07:00 40 MG Laboratory Results Laboratory Tests 02/26/24 05:14 Chemistry Test 02/26/24 05:14 Albumin 3.5 g/dL (3.2-4.8) Calcium Level 9.2 mg/dL (8.7-10.4) Total Protein 5.5 g/dL (5.7-8.2) L LFT Test 02/26/24 05:14 Alanine Aminotransferase (ALT) < 9 U/L (7-40) Alkaline Phosphatase 61 U/L (46-116) Aspartate Amino Transferase (AST) 20 U/L (13-40) Total Bilirubin 0.5 mg/dL (0.2-1.0) Urinalysis Test 02/13/24 09:15 02/15/24 14:15 02/21/24 09:00 Urine Hyaline Casts Mod /lpf (0 - 2) Urine Granular Casts Many /lpf (0) Urine Yeast (Budding) Occasional /hpf (None Urine Creatinine 175.39 mg/dL (30.0-125.0) H Urine Protein/Creatinine Ratio 1.86 Urine Sodium 94 mmol/L (40-220) Urine Total Protein 326.1 mg/dL (1-14) H Urine Color Brown (Yellow) H Urine Clarity Ex.turbid (Clear) Urine pH 5.0 (5.0-9.0) Urine Specific [place] 1.009 (1.001-1.035) Urine Protein 1+ (Negative) H Urine Ketones Negative (Negative) Urine Blood 3+ /uL (Negative) H Urine Nitrite Negative (Negative) Urine Bilirubin Negative (Negative) Urine Urobilinogen Normal mg/dL (Negative) Urine Leukocyte Esterase 1+ /uL (Negative) Urine RBC 429 /hpf (0 - 3) Urine WBC 95 /hpf (0 - 3) Urine WBC Clumps Present /hpf (None Seen) Urine Squamous Epithelial Cells Few /hpf (<5) Urine Bacteria Few /hpf (None Seen) H Urine Mucus Few (None Seen) Urine Glucose Normal mg/dL (Normal) Microbiology Microbiology Date/Time Source Procedure Growth Status 02/20/24 19:10 Nose MRSA Screen - Final Complete 02/19/24 23:30 Urine - [place] Urine Culture - Final Complete 02/19/24 09:26 Blood Blood Culture - Final NO GROWTH AFTER 5 DAYS OF INCUBATION. Complete Labs and/or images reviewed: Labs reviewed by me, Image(s) reviewed by me Assessment/Plan Assessment/Plan Complicated cystitis Renal calculi Hematuria Pancytopenia Status post MVR Hypertension Parkinson's disease WILLARD on CKD, likely ATN Chronic B-cell lymphoma Nephro consult appreciated We will hold PermCath for now, if patient is improving might not need dialysis yet Continue with ceftriaxone Continue rest of medication Encouraged patient to complete his meals, and ensures, once he finished more than a 3rd of his meal we will stop Clinimix add mirtazipine Lines Right IJ dialysis catheter Diet mechanical soft DVT prophylaxis Lovenox Condition critical Prognosis poor Plan discussed with: Patient Date of Service: Feb 26, 2024 Billing Provider: ESE REIS MD Common Visit Codes: [id number] INP/OBS CARE(HIGH), [id number] CARE 30-74 MIN ESE REIS MD Feb 26, 2024 19:11
[2024-02-26] MEDS: MIRTAZAPINE 30 MG TAB PO SCH (22:13)
[2024-02-27] VITALS (24 sets, daily range): BP systolic 93–144; BP diastolic 39–76; PULSE 64–81; RESP 11–21; TEMP 98–99.4; O2SAT 90–97
[2024-02-27 06:08] LABS: Albumin 3.4 g/dL (3.2-4.8); Alkaline Phosphatase 63 U/L (46-116); Anion Gap 7 (5-15); Aspartate Aminotransferase 19 U/L (13-40); BUN/Creatinine Ratio 21.6 (10.0-20.0); Blood Urea Nitrogen 38 mg/dL (9-23); Calcium 9.3 mg/dL (8.7-10.4); Carbon Dioxide 32 mmol/L (20-31); Chloride 101 mmol/L (98-107); Glucose 97 mg/dL (74-106); Magnesium 1.5 mg/dL (1.6-2.6); Potassium 3.2 mmol/L (3.5-5.1); Sodium 140 mmol/L (136-145)
[2024-02-27 06:09] LABS: Bilirubin, Total 0.6 mg/dL (0.2-1.0); Phosphorus 2.9 mg/dL (2.4-5.1); Total Protein 5.6 g/dL (5.7-8.2)
[2024-02-27 06:19] LABS: Alanine Aminotransferase < 9 U/L (7-40)
[2024-02-27] MEDS: MAGNESIUM SULFATE 1GM/100ML 100 ML IV SCH (09:44)
[2024-02-27] MEDS: POTASSIUM CHLORIDE 40 MEQ, LIDOCAINE 1% (LOCAL ANESTH.) 4 ML in SODIUM CHL 0.9% 250 ML IV ONE (11:04)
--- NOTE | 2024-02-27 11:29 | DVHPN2 ---
Progress Note - Dictate Date Seen: Feb 27, 2024 Has the PT tested + for MRSA If YES, has PT been informed?: No Medical Necessity Reason Pt with a Central, PICC or Fol: Yes The following are medically ne: Osullivan Catheter Reason for osullivan catheter: Bladder Retention/Obstruc, Strict I&O Subjective uop> 3L IR case for TC cancelled vital signs Vital Sign Date Time Temp Pulse Resp B/P (MAP) Pulse Ox O2 Delivery O2 Flow Rate FiO2 02/27/24 11:00 73 12 97/70 (79) 94 02/27/24 08:00 Room Air* 0 21 02/27/24 08:00 99.4 99.4 Total Intake and Output 02/26/24 02/26/24 02/27/24 15:00 23:00 07:00 Intake Total 558 ml 827 ml 720 ml Output Total 1500 ml 2200 ml Balance 558 ml -673 ml -1480 ml medications Current Medications Medications Dose Ordered Sig/Desmond Route Start Time Stop Time Status Last Admin Dose Admin Acetaminophen 500 mg Q8HP PRN PO 02/13/24 13:00 02/25/24 22:32 500 MG Ondansetron HCl 4 mg Q6HP PRN IV 02/13/24 13:00 02/25/24 07:32 4 MG Docusate Sodium 100 mg BID PRN PO 02/13/24 13:00 02/26/24 12:15 100 MG Ceftriaxone Sodium 50 ml @ 100 mls/hr DAILY@09 IV 02/14/24 09:00 02/27/24 08:12 100 MLS/HR Tamsulosin HCl 0.4 mg QPM PO 02/13/24 18:00 02/26/24 17:09 0.4 MG Patient Own Medication 2,500 mcg DAILY PO 02/14/24 10:00 Pravastatin Sodium 20 mg HS PO 02/13/24 22:00 02/26/24 22:13 20 MG Patient Own Medication 2 mg QID PO 02/15/24 22:00 02/27/24 06:34 2 MG Amino Acids 0 ml @ 0 mls/hr PER PHARMACY IV 02/21/24 17:15 Amino Acids/ Electrolytes/ Dextrose 1,000 ml @ 41 mls/hr DAILY@2200 IV 02/21/24 22:00 02/25/24 21:46 41 MLS/HR Diagnostic Test (Pha) 1 strip Q6HR 02/22/24 00:00 02/27/24 06:34 1 STRIP Insulin Human Regular FOLLOW SLIDING SCALE Q6HR SC 02/22/24 00:00 Dextrose 50 ml UD IV 02/21/24 18:15 Bumetanide 2 mg BIDD IV 02/24/24 18:00 02/27/24 06:34 2 MG Pantoprazole Sodium 40 mg DAILY@0600 PO 02/25/24 06:00 02/27/24 06:34 40 MG Mirtazapine 15 mg HS PO 02/26/24 22:00 02/26/24 22:13 15 MG Warfarin Sodium RX PROTOCOL PER PHARMACY PO 02/27/24 09:00 laboratory and microbiology Laboratory Tests 02/27/24 04:50 02/26/24 05:14 Test 02/27/24 04:50 Range/Units Serum Glucose 97 74-106 mg/dL Assessment/Plan Acute kidney injury superimposed Chronic Kidney Disease 3B, secondary to ATN s/p HD Acute urinary retention Left nonobstructing kidney stone Pyelonephritis E coli urinary tract infection Pancytopenia Chronic diastolic heart failure Prosthetic mitral valve Parkinson's disease Abdominal aortic aneurysm Hypophosphatemia WILLARD s/p HD now in recovery no further dialysis diuretics replace potassium decrease Remove right IJ Wilder catheter, no further hemodialysis Strict I&Os IV antibiotics Dietary Evaluation Review Comments: 1) Consider a Renal Specific K2,low phos,ROCÍO,2gmNa,80g Pro diet 2) Continue current plan of care Expected Outcomes/Goals: 1) Pt labs to improve Plan discussed with: Patient KEEGAN CALDERON MD Feb 27, 2024 11:29
--- NOTE | 2024-02-27 11:51 | DVHPN2 ---
Subjective Patient more alert today. Patient denies any symptoms. Reviewed: Care Plan, H&P, Labs, Medications, Previous Orders Changes from previous H/P or p: No Changes General: Per HPI Eyes: No Pain, No Vision change, No Conjunctivae inflammation, No Eyelid inflammation, No Other, No Redness ENT: No Ear pain, No Ear discharge, No Nose pain, No Nose discharge, No Nose congestion, No Mouth pain, No Mouth swelling, No Throat pain, No Throat swelling, No Other Cardiovascular: No Chest Pain, No Palpitations, No Orthopnea, No Paroxysmal Noc. Dyspnea, No Edema, No Lt Headedness, No Other Respiratory: No Cough, No Dry, No Shortness of breath, No SOB with excertion, No Wheezing, No Hemoptysis, No Pleuritic Pain, No Sputum, No Other Gastrointestinal: Nausea Genitourinary: Dysuria Musculoskeletal: No other, No neck pain, No shoulder pain, No arm pain, No back pain, No hand pain, No leg pain, No foot pain Skin: No Rash, No Lesions, No Jaundice, No Bruising, No Other Objective Vitals Vital Signs Date Time Temp Pulse Resp B/P (MAP) Pulse Ox O2 Delivery O2 Flow Rate FiO2 02/27/24 11:00 73 12 97/70 (79) 94 02/27/24 08:00 Room Air* 0 21 02/27/24 08:00 99.4 99.4 Intake/Output Intake and Output 02/27/24 07:00 Intake Total 2105 ml Output Total 3700 ml Balance -1595 ml Intake Oral 1440 ml IV Total 665 ml Output Urine Total 3700 ml General Appearance: Alert, Oriented X3, Cooperative, Other (Encephalopathic) HEENT: Atraumatic, PERRLA Neck: Other (HD catheter to right jugular vein) Lungs: Clear to auscultation, Normal air movement Cardiovascular: Normal S1, Normal S2 Abdomen: Normal bowel sounds Genitourinary: No Apparent Abnormalities Musculoskeletal: Normal sensory function, Normal motor function Skin: Dry, Intact Psych/Mental Status: Mental status NL, Mood NL Medications Current Medications Medications Dose Ordered Sig/Desmond Route Start Time Stop Time Status Last Admin Dose Admin Acetaminophen 500 mg Q8HP PRN PO 02/13/24 13:00 02/25/24 22:32 500 MG Ondansetron HCl 4 mg Q6HP PRN IV 02/13/24 13:00 02/25/24 07:32 4 MG Docusate Sodium 100 mg BID PRN PO 02/13/24 13:00 02/26/24 12:15 100 MG Ceftriaxone Sodium 50 ml @ 100 mls/hr DAILY@09 IV 02/14/24 09:00 02/27/24 08:12 100 MLS/HR Tamsulosin HCl 0.4 mg QPM PO 02/13/24 18:00 02/26/24 17:09 0.4 MG Patient Own Medication 2,500 mcg DAILY PO 02/14/24 10:00 Pravastatin Sodium 20 mg HS PO 02/13/24 22:00 02/26/24 22:13 20 MG Patient Own Medication 2 mg QID PO 02/15/24 22:00 02/27/24 11:29 2 MG Amino Acids 0 ml @ 0 mls/hr PER PHARMACY IV 02/21/24 17:15 Amino Acids/ Electrolytes/ Dextrose 1,000 ml @ 41 mls/hr DAILY@2200 IV 02/21/24 22:00 02/25/24 21:46 41 MLS/HR Diagnostic Test (Pha) 1 strip Q6HR 02/22/24 00:00 02/27/24 11:29 1 STRIP Insulin Human Regular FOLLOW SLIDING SCALE Q6HR SC 02/22/24 00:00 Dextrose 50 ml UD IV 02/21/24 18:15 Pantoprazole Sodium 40 mg DAILY@0600 PO 02/25/24 06:00 02/27/24 06:34 40 MG Mirtazapine 15 mg HS PO 02/26/24 22:00 02/26/24 22:13 15 MG Warfarin Sodium RX PROTOCOL PER PHARMACY PO 02/27/24 09:00 Bumetanide 2 mg DAILY IV 02/28/24 10:00 UNV Laboratory Results Laboratory Tests 02/26/24 05:14 02/27/24 04:50 Chemistry Test 02/27/24 04:50 Albumin 3.4 g/dL (3.2-4.8) Calcium Level 9.3 mg/dL (8.7-10.4) Magnesium Level 1.5 mg/dL (1.6-2.6) L Phosphorus Level 2.9 mg/dL (2.4-5.1) Total Protein 5.6 g/dL (5.7-8.2) L LFT Test 02/27/24 04:50 Alanine Aminotransferase (ALT) < 9 U/L (7-40) Alkaline Phosphatase 63 U/L (46-116) Aspartate Amino Transferase (AST) 19 U/L (13-40) Total Bilirubin 0.6 mg/dL (0.2-1.0) Urinalysis Test 02/13/24 09:15 02/15/24 14:15 02/21/24 09:00 Urine Hyaline Casts Mod /lpf (0 - 2) Urine Granular Casts Many /lpf (0) Urine Yeast (Budding) Occasional /hpf (None Urine Creatinine 175.39 mg/dL (30.0-125.0) H Urine Protein/Creatinine Ratio 1.86 Urine Sodium 94 mmol/L (40-220) Urine Total Protein 326.1 mg/dL (1-14) H Urine Color Brown (Yellow) H Urine Clarity Ex.turbid (Clear) Urine pH 5.0 (5.0-9.0) Urine Specific [place] 1.009 (1.001-1.035) Urine Protein 1+ (Negative) H Urine Ketones Negative (Negative) Urine Blood 3+ /uL (Negative) H Urine Nitrite Negative (Negative) Urine Bilirubin Negative (Negative) Urine Urobilinogen Normal mg/dL (Negative) Urine Leukocyte Esterase 1+ /uL (Negative) Urine RBC 429 /hpf (0 - 3) Urine WBC 95 /hpf (0 - 3) Urine WBC Clumps Present /hpf (None Seen) Urine Squamous Epithelial Cells Few /hpf (<5) Urine Bacteria Few /hpf (None Seen) H Urine Mucus Few (None Seen) Urine Glucose Normal mg/dL (Normal) Microbiology Microbiology Date/Time Source Procedure Growth Status 02/20/24 19:10 Nose MRSA Screen - Final Complete 02/19/24 23:30 Urine - [place] Urine Culture - Final Complete 02/19/24 09:26 Blood Blood Culture - Final NO GROWTH AFTER 5 DAYS OF INCUBATION. Complete Labs and/or images reviewed: Labs reviewed by me, Image(s) reviewed by me Assessment/Plan Assessment/Plan Impression: -complicated cystitis with E coli -renal calculi -hematuria -pancytopenia -history of prosthetic mitral valve replacement -primary hypertension -Parkinson disease -chronic kidney disease stage 3, acute kidney injury, probable ATN -chronic B-cell lymphoma Plan: -events: Patient's renal function improved. Tunneled dialysis catheter placement has been canceled. Wilder catheter has been removed. Patient noted to be ambulating with walker with physical therapy. Continues to have poor oral intake. -restart Coumadin -nephrology consultation, recommendations reviewed -continue Rocephin -urology consultation : Recommendations reviewed -continue carbidopa levodopa -continue Clinimix . Patient continues to have poor oral intake. Continue for now -encourage p.o. intake -repeat labs, in a.m.. Critical care time spent with patient discussing and formulating plan of care: 40 minutes. This does not include time spent performing procedures. This medical document was created using an electronic medical record system with [employer] dictation system. Although this document has been carefully reviewed, there may still be some phonetic and typographical errors. These areas are purely typographical due to imperfections of the software programs, and do not reflect any compromise in the patient's medical care. Plan discussed with: Patient, Other (RN) My Orders Orders - SHEA GAYTAN NP Procedure Category Date Status Time Clinimix Per Pharmacy [facility] 02/26/24 In Process 22:00 Potassium Chloride PHA 02/27/24 In Process (Potassium Chloride). 09:00 Warfarin Per Rx PHA 02/27/24 In Process Protocol (Coumadin 09:00 Pt Request For Service PT 02/27/24 Logged 08:57 PTPTT LAB 02/27/24 Logged 10:36 Date of Service: Feb 27, 2024 Billing Provider: SHEA GAYTAN NP Common Visit Codes: [id number] INP/OBS CARE(HIGH) SHEA GAYTAN NP Feb 27, 2024 11:51
[2024-02-27 12:24] LABS: INR 1.28 (0.9-1.15); Partial Thromboplastin Time 27.2 SEC (24.5-34.5); Prothrombin Time 13.3 sec (9.3-11.8)
[2024-02-27] MEDS: MAGNESIUM SULFATE 1GM/100ML 100 ML IV ONE (14:31)
[2024-02-27] MEDS: WARFARIN SODIUM 5 MG TAB PO ONE (16:58)
[2024-02-27] MEDS: AMINO ACID INFUSION IN D5W 1,000 ML IV SCH (21:39)
[2024-02-28] VITALS (27 sets, daily range): BP systolic 83–150; BP diastolic 25–81; PULSE 65–108; RESP 11–22; TEMP 98–98.8; O2SAT 92–98
[2024-02-28 04:54] LABS: Basophils # (auto) 0.1 10 ^3/uL (0-0.2); Basophils % (auto) 1.2 % (0.0-2.0); Eosinophils # (auto) 0.1 10 ^3/uL (0-0.8); Eosinophils % (auto) 1.9 % (0.0-7.0); Hematocrit 30.6 % (41.0-53.0); Hemoglobin 10.6 g/dL (13.5-17.5); Lymphocytes # (auto) 0.8 10 ^3/uL (0.4-5.4); Lymphocytes % (auto) 13.4 % (10.0-50.0); Mean Corpuscular Hemoglobin 30.1 pg (28.0-32.0); Mean Corpuscular Hgb Conc. 34.6 g/dL (32.0-36.0); Mean Corpuscular Volume 86.9 fL (80.0-100.0); Monocytes # (auto) 0.7 10 ^3/uL (0-1.3); Monocytes % (auto) 11.9 % (0.0-12.0); Neutrophils # (auto) 4.1 10 ^3/uL (1.6-8.6); Neutrophils % (auto) 71.6 % (37.0-80.0); Platelet Count (auto) 101 10^3/uL (140-450); Red Blood Cells 3.52 10^6/uL (4.5-5.90); Red Cell Distribution Width 13.5 % (11.8-14.3); White Blood Cell 5.7 10^3/uL (4.4-10.8)
[2024-02-28 05:08] LABS: INR 1.18 (0.9-1.15); Partial Thromboplastin Time 26.2 SEC (24.5-34.5); Prothrombin Time 12.4 sec (9.3-11.8)
[2024-02-28 05:15] LABS: Albumin 3.8 g/dL (3.2-4.8); Alkaline Phosphatase 73 U/L (46-116); Anion Gap 5 (5-15); Aspartate Aminotransferase 17 U/L (13-40); BUN/Creatinine Ratio 25.3 (10.0-20.0); Blood Urea Nitrogen 40 mg/dL (9-23); Calcium 9.3 mg/dL (8.7-10.4); Carbon Dioxide 33 mmol/L (20-31); Chloride 104 mmol/L (98-107); GFR African American 55 mL/min; GFR Non-African American 45 mL/min; Glucose 110 mg/dL (74-106); Magnesium 1.9 mg/dL (1.6-2.6); Phosphorus 2.6 mg/dL (2.4-5.1); Potassium 3.6 mmol/L (3.5-5.1); Sodium 142 mmol/L (136-145)
[2024-02-28 05:16] LABS: Bilirubin, Total 0.7 mg/dL (0.2-1.0); Total Protein 6.2 g/dL (5.7-8.2)
[2024-02-28 05:28] LABS: Alanine Aminotransferase < 9 U/L (7-40)
[2024-02-28] MEDS: BUMETANIDE 2.5mg/10ml (0.25 mg/ml) INJ IV SCH (09:41)
--- NOTE | 2024-02-28 10:25 | DVHPN2 ---
Progress Note - Dictate Date Seen: Feb 28, 2024 Has the PT tested + for MRSA If YES, has PT been informed?: No Medical Necessity Reason Pt with a Central, PICC or Fol: Yes The following are medically ne: Osullivan Catheter Reason for osullivan catheter: Bladder Retention/Obstruc, Strict I&O Subjective NAD vital signs Vital Sign Date Time Temp Pulse Resp B/P (MAP) Pulse Ox O2 Delivery O2 Flow Rate FiO2 02/28/24 09:41 110/38 02/28/24 06:00 71 15 95 02/28/24 04:00 98.8 98.8 02/27/24 20:00 Room Air* 0 21 Total Intake and Output 02/27/24 02/27/24 02/28/24 15:00 23:00 07:00 Intake Total 764 ml 131 ml 487 ml Output Total 1600 ml 650 ml Balance 764 ml -1469 ml -163 ml medications Current Medications Medications Dose Ordered Sig/Desmond Route Start Time Stop Time Status Last Admin Dose Admin Acetaminophen 500 mg Q8HP PRN PO 02/13/24 13:00 02/25/24 22:32 500 MG Ondansetron HCl 4 mg Q6HP PRN IV 02/13/24 13:00 02/25/24 07:32 4 MG Docusate Sodium 100 mg BID PRN PO 02/13/24 13:00 02/26/24 12:15 100 MG Ceftriaxone Sodium 50 ml @ 100 mls/hr DAILY@09 IV 02/14/24 09:00 02/28/24 09:41 100 MLS/HR Tamsulosin HCl 0.4 mg QPM PO 02/13/24 18:00 02/27/24 16:58 0.4 MG Patient Own Medication 2,500 mcg DAILY PO 02/14/24 10:00 Pravastatin Sodium 20 mg HS PO 02/13/24 22:00 02/27/24 21:39 20 MG Patient Own Medication 2 mg QID PO 02/15/24 22:00 02/28/24 05:06 2 MG Amino Acids 0 ml @ 0 mls/hr PER PHARMACY IV 02/21/24 17:15 Diagnostic Test (Pha) 1 strip Q6HR 02/22/24 00:00 02/28/24 05:31 1 STRIP Insulin Human Regular FOLLOW SLIDING SCALE Q6HR SC 02/22/24 00:00 Dextrose 50 ml UD IV 02/21/24 18:15 Pantoprazole Sodium 40 mg DAILY@0600 PO 02/25/24 06:00 02/28/24 05:06 40 MG Mirtazapine 15 mg HS PO 02/26/24 22:00 02/27/24 21:39 15 MG Warfarin Sodium RX PROTOCOL PER PHARMACY PO 02/27/24 09:00 Bumetanide 2 mg DAILY IV 02/28/24 10:00 02/28/24 09:41 2 MG Amino Acids 1,000 ml @ 41 mls/hr [id number] IV 02/27/24 22:00 02/27/24 21:39 41 MLS/HR laboratory and microbiology Laboratory Tests 02/28/24 04:34 Test 02/28/24 04:34 Range/Units Serum Glucose 110 H 74-106 mg/dL Assessment/Plan Acute kidney injury superimposed Chronic Kidney Disease 3B, secondary to ATN s/p HD Acute urinary retention Left nonobstructing kidney stone Pyelonephritis E coli urinary tract infection Pancytopenia Chronic diastolic heart failure Prosthetic mitral valve Parkinson's disease Abdominal aortic aneurysm Hypophosphatemia no further dialysis diuretics reduced dose and uop 2.2L Strict I&Os IV antibiotics currently still has osullivan, defer to Urology about management stable from renal standpoint Dietary Evaluation Review Comments: 1) Consider a Renal Specific K2,low phos,ROCÍO,2gmNa,80g Pro diet 2) Continue current plan of care Expected Outcomes/Goals: 1) Pt labs to improve Plan discussed with: Patient KEEGAN CALDERON MD Feb 28, 2024 10:25
--- NOTE | 2024-02-28 11:03 | MEDREC ---
[facility] Intervention Section I [facility] Intervention: Review courses of therapy (15 DAYS ON CEFTRIAXONE NO LEUKOCYTOSIS , AFEBRILE - PLEASE CONSIDER D/C ANTIBIOTIC IF PATIENT CLNICALLY STABLE ) MITZY COY PHARMACIST Feb 28, 2024 11:03
--- NOTE | 2024-02-28 16:32 | DVHPN2 ---
Subjective Patient more alert today. Patient denies any symptoms. Reviewed: Care Plan, H&P, Labs, Medications, Previous Orders Changes from previous H/P or p: No Changes General: Per HPI Eyes: No Pain, No Vision change, No Conjunctivae inflammation, No Eyelid inflammation, No Other, No Redness ENT: No Ear pain, No Ear discharge, No Nose pain, No Nose discharge, No Nose congestion, No Mouth pain, No Mouth swelling, No Throat pain, No Throat swelling, No Other Cardiovascular: No Chest Pain, No Palpitations, No Orthopnea, No Paroxysmal Noc. Dyspnea, No Edema, No Lt Headedness, No Other Respiratory: No Cough, No Dry, No Shortness of breath, No SOB with excertion, No Wheezing, No Hemoptysis, No Pleuritic Pain, No Sputum, No Other Gastrointestinal: Nausea Genitourinary: Dysuria Musculoskeletal: No other, No neck pain, No shoulder pain, No arm pain, No back pain, No hand pain, No leg pain, No foot pain Skin: No Rash, No Lesions, No Jaundice, No Bruising, No Other Objective Vitals Vital Signs Date Time Temp Pulse Resp B/P (MAP) Pulse Ox O2 Delivery O2 Flow Rate FiO2 02/28/24 14:00 67 17 121/60 (80) 98 02/28/24 11:01 98.2 98.2 02/28/24 08:00 Room Air* 0 21 Intake/Output Intake and Output 02/28/24 07:00 Intake Total 1423 ml Output Total 2250 ml Balance -827 ml Intake Oral 530 ml IV Total 893 ml Output Urine Total 2250 ml General Appearance: Alert, Oriented X3, Cooperative, Other (Encephalopathic) HEENT: Atraumatic, PERRLA Neck: Other (HD catheter to right jugular vein) Lungs: Clear to auscultation, Normal air movement Cardiovascular: Normal S1, Normal S2 Abdomen: Normal bowel sounds Genitourinary: No Apparent Abnormalities Musculoskeletal: Normal sensory function, Normal motor function Skin: Dry, Intact Psych/Mental Status: Mental status NL, Mood NL Medications Current Medications Medications Dose Ordered Sig/Desmond Route Start Time Stop Time Status Last Admin Dose Admin Acetaminophen 500 mg Q8HP PRN PO 02/13/24 13:00 02/25/24 22:32 500 MG Ondansetron HCl 4 mg Q6HP PRN IV 02/13/24 13:00 02/25/24 07:32 4 MG Docusate Sodium 100 mg BID PRN PO 02/13/24 13:00 02/26/24 12:15 100 MG Ceftriaxone Sodium 50 ml @ 100 mls/hr DAILY@09 IV 02/14/24 09:00 02/28/24 09:41 100 MLS/HR Tamsulosin HCl 0.4 mg QPM PO 02/13/24 18:00 02/27/24 16:58 0.4 MG Patient Own Medication 2,500 mcg DAILY PO 02/14/24 10:00 Pravastatin Sodium 20 mg HS PO 02/13/24 22:00 02/27/24 21:39 20 MG Patient Own Medication 2 mg QID PO 02/15/24 22:00 02/28/24 12:03 2 MG Diagnostic Test (Pha) 1 strip Q6HR 02/22/24 00:00 02/28/24 12:19 1 STRIP Insulin Human Regular FOLLOW SLIDING SCALE Q6HR SC 02/22/24 00:00 Dextrose 50 ml UD IV 02/21/24 18:15 Pantoprazole Sodium 40 mg DAILY@0600 PO 02/25/24 06:00 02/28/24 05:06 40 MG Mirtazapine 15 mg HS PO 02/26/24 22:00 02/27/24 21:39 15 MG Warfarin Sodium RX PROTOCOL PER PHARMACY PO 02/27/24 09:00 Bumetanide 2 mg DAILY IV 02/28/24 10:00 02/28/24 09:41 2 MG Laboratory Results Laboratory Tests 02/28/24 04:34 Chemistry Test 02/28/24 04:34 Albumin 3.8 g/dL (3.2-4.8) Calcium Level 9.3 mg/dL (8.7-10.4) Magnesium Level 1.9 mg/dL (1.6-2.6) Phosphorus Level 2.6 mg/dL (2.4-5.1) Total Protein 6.2 g/dL (5.7-8.2) Coagulation Test 02/28/24 04:34 Prothrombin Time 12.4 sec (9.3-11.8) H Prothrombin Time INR 1.18 (0.9-1.15) H Activated Partial Thromboplast Time 26.2 SEC (24.5-34.5) LFT Test 02/28/24 04:34 Alanine Aminotransferase (ALT) < 9 U/L (7-40) Alkaline Phosphatase 73 U/L (46-116) Aspartate Amino Transferase (AST) 17 U/L (13-40) Total Bilirubin 0.7 mg/dL (0.2-1.0) Urinalysis Test 02/13/24 09:15 02/15/24 14:15 02/21/24 09:00 Urine Hyaline Casts Mod /lpf (0 - 2) Urine Granular Casts Many /lpf (0) Urine Yeast (Budding) Occasional /hpf (None Urine Creatinine 175.39 mg/dL (30.0-125.0) H Urine Protein/Creatinine Ratio 1.86 Urine Sodium 94 mmol/L (40-220) Urine Total Protein 326.1 mg/dL (1-14) H Urine Color Brown (Yellow) H Urine Clarity Ex.turbid (Clear) Urine pH 5.0 (5.0-9.0) Urine Specific [place] 1.009 (1.001-1.035) Urine Protein 1+ (Negative) H Urine Ketones Negative (Negative) Urine Blood 3+ /uL (Negative) H Urine Nitrite Negative (Negative) Urine Bilirubin Negative (Negative) Urine Urobilinogen Normal mg/dL (Negative) Urine Leukocyte Esterase 1+ /uL (Negative) Urine RBC 429 /hpf (0 - 3) Urine WBC 95 /hpf (0 - 3) Urine WBC Clumps Present /hpf (None Seen) Urine Squamous Epithelial Cells Few /hpf (<5) Urine Bacteria Few /hpf (None Seen) H Urine Mucus Few (None Seen) Urine Glucose Normal mg/dL (Normal) Microbiology Microbiology Date/Time Source Procedure Growth Status 02/20/24 19:10 Nose MRSA Screen - Final Complete 02/19/24 23:30 Urine - [place] Urine Culture - Final Complete 02/19/24 09:26 Blood Blood Culture - Final NO GROWTH AFTER 5 DAYS OF INCUBATION. Complete Labs and/or images reviewed: Labs reviewed by me, Image(s) reviewed by me Assessment/Plan Assessment/Plan Impression: -complicated cystitis with E coli -renal calculi -hematuria -pancytopenia -history of prosthetic mitral valve replacement -primary hypertension -Parkinson disease -chronic kidney disease stage 3, acute kidney injury, probable ATN -chronic B-cell lymphoma Plan: -events: Downgrade to M/S -Continue Coumadin, Lovenox bridge -nephrology consultation, recommendations reviewed -continue Rocephin -urology consultation : Recommendations reviewed -continue carbidopa levodopa -DC clinimix -encourage p.o. intake -repeat labs, in a.m.. Total time spent with patient discussing and formulating plan of care: 40 minutes. This does not include time spent performing procedures. This medical document was created using an electronic medical record system with [employer] dictation system. Although this document has been carefully reviewed, there may still be some phonetic and typographical errors. These areas are purely typographical due to imperfections of the software programs, and do not reflect any compromise in the patient's medical care. Plan discussed with: Patient, Other (RN) My Orders Orders - SHEA GAYTAN NP Procedure Category Date Status Time Warfarin Sodium PHA 02/28/24 In Process (Coumadin) 17:00 Complete Blood Count LAB 02/29/24 Verified 04:00 Coumadin Per Pharmacy [facility] 02/28/24 In Process Protcol 17:00 Date of Service: Feb 28, 2024 Billing Provider: SHEA GAYTAN NP Common Visit Codes: [id number] INP/OBS CARE(HIGH) SHEA GAYTAN NP Feb 28, 2024 16:32
[2024-02-28] MEDS: WARFARIN SODIUM 5 MG TAB PO ONE (18:01)
[2024-02-29] VITALS (20 sets, daily range): BP systolic 93–142; BP diastolic 36–98; PULSE 60–97; RESP 11–31; TEMP 97.6–98.8; O2SAT 92–97
[2024-02-29 05:20] LABS: Basophils # (auto) 0.1 10 ^3/uL (0-0.2); Basophils % (auto) 1.8 % (0.0-2.0); Eosinophils # (auto) 0.2 10 ^3/uL (0-0.8); Eosinophils % (auto) 2.8 % (0.0-7.0); Hematocrit 29.2 % (41.0-53.0); Lymphocytes % (auto) 17.4 % (10.0-50.0); Mean Corpuscular Hemoglobin 29.9 pg (28.0-32.0); Mean Corpuscular Hgb Conc. 34.4 g/dL (32.0-36.0); Mean Corpuscular Volume 86.8 fL (80.0-100.0); Monocytes # (auto) 0.8 10 ^3/uL (0-1.3); Monocytes % (auto) 13.5 % (0.0-12.0); Neutrophils # (auto) 3.6 10 ^3/uL (1.6-8.6); Neutrophils % (auto) 64.5 % (37.0-80.0); Platelet Count (auto) 114 10^3/uL (140-450); Red Blood Cells 3.36 10^6/uL (4.5-5.90); Red Cell Distribution Width 13.6 % (11.8-14.3); White Blood Cell 5.6 10^3/uL (4.4-10.8)
[2024-02-29 05:33] LABS: Anion Gap 11 (5-15); Carbon Dioxide 28 mmol/L (20-31); Chloride 104 mmol/L (98-107); INR 1.23 (0.9-1.15); Partial Thromboplastin Time 26.2 SEC (24.5-34.5); Potassium 3.7 mmol/L (3.5-5.1); Prothrombin Time 12.8 sec (9.3-11.8); Sodium 143 mmol/L (136-145)
[2024-02-29 05:35] LABS: Calcium 9.5 mg/dL (8.7-10.4)
[2024-02-29 05:39] LABS: Glucose 96 mg/dL (74-106)
[2024-02-29 05:54] LABS: BUN/Creatinine Ratio 25.7 (10.0-20.0); Blood Urea Nitrogen 36 mg/dL (9-23)
[2024-02-29] MEDS: ENOXAPARIN SOD 100 MG/1 ML SYRINGE SC SCH (08:51)
--- NOTE | 2024-02-29 10:22 | DVHPN2 ---
Progress Note - Dictate Date Seen: Feb 29, 2024 Has the PT tested + for MRSA If YES, has PT been informed?: No Medical Necessity Reason Pt with a Central, PICC or Fol: Yes The following are medically ne: Osullivan Catheter Reason for osullivan catheter: Bladder Retention/Obstruc, Strict I&O Medical Necessity Reason Patient has a left ureteral stent placement performed on 02/15/2024 for a 7 mm proximal ureteral/UPJ stone vital signs Vital Sign Date Time Temp Pulse Resp B/P (MAP) Pulse Ox O2 Delivery O2 Flow Rate FiO2 02/29/24 09:02 118/90 02/29/24 08:00 77 18 94 Room Air* 0 21 02/29/24 04:01 98.5 98.5 Total Intake and Output 02/28/24 02/28/24 02/29/24 15:00 23:00 07:00 Intake Total 428 ml 400 ml 100 ml Output Total 1550 ml 700 ml Balance 428 ml -1150 ml -600 ml medications Current Medications Medications Dose Ordered Sig/[place]mond Route Start Time Stop Time Status Last Admin Dose Admin Acetaminophen 500 mg Q8HP PRN PO 02/13/24 13:00 02/25/24 22:32 500 MG Ondansetron HCl 4 mg Q6HP PRN IV 02/13/24 13:00 02/25/24 07:32 4 MG Docusate Sodium 100 mg BID PRN PO 02/13/24 13:00 02/26/24 12:15 100 MG Ceftriaxone Sodium 50 ml @ 100 mls/hr DAILY@09 IV 02/14/24 09:00 02/29/24 08:49 100 MLS/HR Tamsulosin HCl 0.4 mg QPM PO 02/13/24 18:00 02/28/24 18:06 0.4 MG Patient Own Medication 2,500 mcg DAILY PO 02/14/24 10:00 Pravastatin Sodium 20 mg HS PO 02/13/24 22:00 02/28/24 22:06 20 MG Patient Own Medication 2 mg QID PO 02/15/24 22:00 02/29/24 06:23 2 MG Diagnostic Test (Pha) 1 strip Q6HR 02/22/24 00:00 02/29/24 06:18 1 STRIP Insulin Human Regular FOLLOW SLIDING SCALE Q6HR SC 02/22/24 00:00 Dextrose 50 ml UD IV 02/21/24 18:15 Pantoprazole Sodium 40 mg DAILY@0600 PO 02/25/24 06:00 02/29/24 06:22 40 MG Mirtazapine 15 mg HS PO 02/26/24 22:00 02/28/24 22:06 15 MG Warfarin Sodium RX PROTOCOL PER PHARMACY PO 02/27/24 09:00 Bumetanide 2 mg DAILY IV 02/28/24 10:00 02/29/24 09:02 2 MG Enoxaparin Sodium 100 mg DAILY SC 02/29/24 10:00 02/29/24 08:51 100 MG laboratory and microbiology Laboratory Tests 02/29/24 04:52 Test 02/29/24 04:52 Range/Units Serum Glucose 96 74-106 mg/dL Problem List Left renal calculus left ureteral Stent Azotemia, resolved Assessment/Plan Left renal stone WILLARD E coli UTI Patient's creatinine which arose to above 4.5 and now has returned to 1.4 since the stent placement. Patient will undergo extracorporeal shockwave lithotripsy and stent removal tomorrow Dietary Evaluation Review Comments: 1) Consider a Renal Specific K2,low phos,ROCÍO,2gmNa,80g Pro diet 2) Continue current plan of care Expected Outcomes/Goals: 1) Pt labs to improve Plan discussed with: Patient, Other VANESSA FAYE MD Feb 29, 2024 10:22
--- NOTE | 2024-02-29 11:12 | DVH ---
Date: 02/29/2024 10:29 AM Examination: XY KUB ABDOMEN SINGLE VIEW History: left ureteral stent and 7 mm stone Comparison: XY KUB ABDOMEN SINGLE VIEW on DOS: 02/16/24, XY KUB ABDOMEN SINGLE VIEW on DOS: 02/16/24 TECHNIQUE: Frontal views of the abdomen was obtained. FINDINGS: Ureteral stent is visualized. Multiple calcific densities project over pelvis. The lung bases are unremarkable. No acute osseous abnormality identified. IMPRESSION: Nonobstructive bowel gas pattern. Left ureteral stent is visualized. Multiple calcific densities pro ject over the pelvis.
--- NOTE | 2024-02-29 11:38 | DVHPN2 ---
Subjective Patient more alert today. Patient denies any symptoms. Reviewed: Care Plan, H&P, Labs, Medications, Previous Orders Changes from previous H/P or p: No Changes General: Per HPI Eyes: No Pain, No Vision change, No Conjunctivae inflammation, No Eyelid inflammation, No Other, No Redness ENT: No Ear pain, No Ear discharge, No Nose pain, No Nose discharge, No Nose congestion, No Mouth pain, No Mouth swelling, No Throat pain, No Throat swelling, No Other Cardiovascular: No Chest Pain, No Palpitations, No Orthopnea, No Paroxysmal Noc. Dyspnea, No Edema, No Lt Headedness, No Other Respiratory: No Cough, No Dry, No Shortness of breath, No SOB with excertion, No Wheezing, No Hemoptysis, No Pleuritic Pain, No Sputum, No Other Gastrointestinal: Nausea Genitourinary: Dysuria Musculoskeletal: No other, No neck pain, No shoulder pain, No arm pain, No back pain, No hand pain, No leg pain, No foot pain Skin: No Rash, No Lesions, No Jaundice, No Bruising, No Other Objective Vitals Vital Signs Date Time Temp Pulse Resp B/P (MAP) Pulse Ox O2 Delivery O2 Flow Rate FiO2 02/29/24 11:00 68 23 113/59 (77) 95 02/29/24 08:00 98.8 98.8 02/29/24 08:00 Room Air* 0 21 Intake/Output Intake and Output 02/29/24 07:00 Intake Total 928 ml Output Total 2250 ml Balance -1322 ml Intake Oral 500 ml IV Total 428 ml Output Urine Total 2250 ml General Appearance: Alert, Oriented X3, Cooperative, Other (Encephalopathic) HEENT: Atraumatic, PERRLA Neck: Other (HD catheter to right jugular vein) Lungs: Clear to auscultation, Normal air movement Cardiovascular: Normal S1, Normal S2 Abdomen: Normal bowel sounds Genitourinary: No Apparent Abnormalities Musculoskeletal: Normal sensory function, Normal motor function Skin: Dry, Intact Psych/Mental Status: Mental status NL, Mood NL Medications Current Medications Medications Dose Ordered Sig/Desmond Route Start Time Stop Time Status Last Admin Dose Admin Acetaminophen 500 mg Q8HP PRN PO 02/13/24 13:00 02/25/24 22:32 500 MG Ondansetron HCl 4 mg Q6HP PRN IV 02/13/24 13:00 11/9/24 07:32 4 MG Docusate Sodium 100 mg BID PRN PO 02/13/24 13:00 02/26/24 12:15 100 MG Ceftriaxone Sodium 50 ml @ 100 mls/hr DAILY@09 IV 02/14/24 09:00 02/29/24 08:49 100 MLS/HR Tamsulosin HCl 0.4 mg QPM PO 02/13/24 18:00 02/28/24 18:06 0.4 MG Patient Own Medication 2,500 mcg DAILY PO 02/14/24 10:00 Pravastatin Sodium 20 mg HS PO 02/13/24 22:00 02/28/24 22:06 20 MG Patient Own Medication 2 mg QID PO 02/15/24 22:00 02/29/24 06:23 2 MG Diagnostic Test (Pha) 1 strip Q6HR 02/22/24 00:00 02/29/24 06:18 1 STRIP Insulin Human Regular FOLLOW SLIDING SCALE Q6HR SC 02/22/24 00:00 Dextrose 50 ml UD IV 02/21/24 18:15 Pantoprazole Sodium 40 mg DAILY@0600 PO 02/25/24 06:00 02/29/24 06:22 40 MG Mirtazapine 15 mg HS PO 02/26/24 22:00 02/28/24 22:06 15 MG Warfarin Sodium RX PROTOCOL PER PHARMACY PO 02/27/24 09:00 Bumetanide 2 mg DAILY IV 02/28/24 10:00 02/29/24 09:02 2 MG Enoxaparin Sodium 100 mg DAILY SC 02/29/24 10:00 02/29/24 08:51 100 MG Laboratory Results Laboratory Tests 02/29/24 04:52 Chemistry Test 02/29/24 04:52 Calcium Level 9.5 mg/dL (8.7-10.4) Coagulation Test 02/29/24 04:52 Prothrombin Time 12.8 sec (9.3-11.8) H Prothrombin Time INR 1.23 (0.9-1.15) H Activated Partial Thromboplast Time 26.2 SEC (24.5-34.5) Urinalysis Test 02/13/24 09:15 02/15/24 14:15 02/21/24 09:00 Urine Hyaline Casts Mod /lpf (0 - 2) Urine Granular Casts Many /lpf (0) Urine Yeast (Budding) Occasional /hpf (None Urine Creatinine 175.39 mg/dL (30.0-125.0) H Urine Protein/Creatinine Ratio 1.86 Urine Sodium 94 mmol/L (40-220) Urine Total Protein 326.1 mg/dL (1-14) H Urine Color Brown (Yellow) H Urine Clarity Ex.turbid (Clear) Urine pH 5.0 (5.0-9.0) Urine Specific Rodney 1.009 (1.001-1.035) Urine Protein 1+ (Negative) H Urine Ketones Negative (Negative) Urine Blood 3+ /uL (Negative) H Urine Nitrite Negative (Negative) Urine Bilirubin Negative (Negative) Urine Urobilinogen Normal mg/dL (Negative) Urine Leukocyte Esterase 1+ /uL (Negative) Urine RBC 429 /hpf (0 - 3) Urine WBC 95 /hpf (0 - 3) Urine WBC Clumps Present /hpf (None Seen) Urine Squamous Epithelial Cells Few /hpf (<5) Urine Bacteria Few /hpf (None Seen) H Urine Mucus Few (None Seen) Urine Glucose Normal mg/dL (Normal) Microbiology Microbiology Date/Time Source Procedure Growth Status 02/20/24 19:10 Nose MRSA Screen - Final Complete 02/19/24 23:30 Urine - [place] Urine Culture - Final Complete 02/19/24 09:26 Blood Blood Culture - Final NO GROWTH AFTER 5 DAYS OF INCUBATION. Complete Labs and/or images reviewed: Labs reviewed by me, Image(s) reviewed by me Assessment/Plan Assessment/Plan Impression: -complicated cystitis with E coli -renal calculi -hematuria -pancytopenia -history of prosthetic mitral valve replacement -primary hypertension -Parkinson disease -chronic kidney disease stage 3, acute kidney injury, probable ATN -chronic B-cell lymphoma Plan: -events: Urology planning for lithotripsy tomorrow with stent removal. -hold anticoagulation -nephrology consultation, recommendations reviewed -continue Rocephin -urology consultation : Recommendations reviewed -continue carbidopa levodopa -encourage p.o. intake -repeat labs, in a.m.. Total time spent with patient discussing and formulating plan of care: 40 minutes. This does not include time spent performing procedures. This medical document was created using an electronic medical record system with [employer] system. Although this document has been carefully reviewed, there may still be some phonetic and typographical errors. These areas are purely typographical due to imperfections of the software programs, and do not reflect any compromise in the patient's medical care. Plan discussed with: Patient, Other (RN) My Orders Orders - SHEA GAYTAN NP Procedure Category Date Status Time Enoxaparin Sodium PHA 02/29/24 In Process (Lovenox) 10:00 Date of Service: Feb 29, 2024 Billing Provider: SHEA GAYTAN NP Common Visit Codes: [id number] INP/OBS CARE(HIGH) SHEA GAYTAN NP Feb 29, 2024 11:38
--- NOTE | 2024-02-29 15:40 | DVHPN2 ---
Progress Note - Dictate Date Seen: Feb 29, 2024 Has the PT tested + for MRSA If YES, has PT been informed?: No Medical Necessity Reason Pt with a Central, PICC or Fol: Yes The following are medically ne: Osullivan Catheter Reason for osullivan catheter: Bladder Retention/Obstruc, Strict I&O Subjective NAD vital signs Vital Sign Date Time Temp Pulse Resp B/P (MAP) Pulse Ox O2 Delivery O2 Flow Rate FiO2 02/29/24 14:10 97 19 96 Room Air* 0 21 02/29/24 14:00 93/57 (69) 02/29/24 12:00 98.3 98.3 Total Intake and Output 02/28/24 02/28/24 02/29/24 15:00 23:00 07:00 Intake Total 428 ml 400 ml 100 ml Output Total 1550 ml 700 ml Balance 428 ml -1150 ml -600 ml medications Current Medications Medications Dose Ordered Sig/Desmond Route Start Time Stop Time Status Last Admin Dose Admin Acetaminophen 500 mg Q8HP PRN PO 02/13/24 13:00 02/25/24 22:32 500 MG Ondansetron HCl 4 mg Q6HP PRN IV 02/13/24 13:00 02/25/24 07:32 4 MG Docusate Sodium 100 mg BID PRN PO 02/13/24 13:00 02/26/24 12:15 100 MG Ceftriaxone Sodium 50 ml @ 100 mls/hr DAILY@09 IV 02/14/24 09:00 02/29/24 08:49 100 MLS/HR Tamsulosin HCl 0.4 mg QPM PO 02/13/24 18:00 02/28/24 18:06 0.4 MG Patient Own Medication 2,500 mcg DAILY PO 02/14/24 10:00 Pravastatin Sodium 20 mg HS PO 02/13/24 22:00 02/28/24 22:06 20 MG Patient Own Medication 2 mg QID PO 02/15/24 22:00 02/29/24 12:27 2 MG Diagnostic Test (Pha) 1 strip Q6HR 02/22/24 00:00 02/29/24 12:27 1 STRIP Insulin Human Regular FOLLOW SLIDING SCALE Q6HR SC 02/22/24 00:00 Dextrose 50 ml UD IV 02/21/24 18:15 Pantoprazole Sodium 40 mg DAILY@0600 PO 02/25/24 06:00 02/29/24 06:22 40 MG Mirtazapine 15 mg HS PO 02/26/24 22:00 02/28/24 22:06 15 MG Bumetanide 2 mg DAILY IV 02/28/24 10:00 02/29/24 09:02 2 MG laboratory and microbiology Laboratory Tests 02/29/24 04:52 Test 02/29/24 04:52 Range/Units Serum Glucose 96 74-106 mg/dL Assessment/Plan Acute kidney injury superimposed Chronic Kidney Disease 3B, secondary to ATN s/p HD Acute urinary retention Left nonobstructing kidney stone Pyelonephritis E coli urinary tract infection Pancytopenia Chronic diastolic heart failure Prosthetic mitral valve Parkinson's disease Abdominal aortic aneurysm Hypophosphatemia no further dialysis diuretics reduced dose and uop 2.2L Strict I&Os IV antibiotics Urology management, planned for procedure tomorrow stable from renal standpoint Dietary Evaluation Review Comments: 1) Consider a Renal Specific K2,low phos,ROCÍO,2gmNa,80g Pro diet 2) Continue current plan of care Expected Outcomes/Goals: 1) Pt labs to improve Plan discussed with: Patient KEEGAN CALDERON MD Feb 29, 2024 15:40
[2024-03-01] VITALS (8 sets, daily range): BP systolic 102–153; BP diastolic 33–79; PULSE 64–75; RESP 16–18; TEMP 97.5–99; O2SAT 92–98
[2024-03-01] MEDS: ceFAZolin 2 GM/D5W100ml 100 ML IV ONE (08:33)
[2024-03-01] MEDS: IOHEXOL 300 MG/ML 100ML BOTTLE IJ ONE (08:42)
[2024-03-01] MEDS ORDERED: MIDAZOLAM HCL 2MG/2ML 2ml VIAL (1mg/ml) ONE (08:51)
[2024-03-01] MEDS ORDERED: LIDOCAINE 1% INJ PF 5ML AMP ONE (08:51)
[2024-03-01] MEDS ORDERED: SODIUM CHLORIDE LOCK 0 ML ONE (08:51)
[2024-03-01] MEDS ORDERED: fentaNYL CITRATE 100 MCG/2 ML VL ONE ×3 (08:51→09:05)
[2024-03-01] MEDS ORDERED: ONDANSETRON HCL 4 MG/2 ML VIAL ONE (08:51)
[2024-03-01] MEDS ORDERED: PROPOFOL 10 MG/ML 20 ML IV ONE (08:51)
[2024-03-01] MEDS ORDERED: KETAMINE 50mg/ML 1ml syringe ONE (08:53)
[2024-03-01] MEDS ORDERED: PHENYLEPHRINE HCL 10 MG/ML VL ONE (08:55)
[2024-03-01] MEDS ORDERED: ePHEDrine SULFATE 50 MG/ML AMP ONE (09:38)
[2024-03-01] MEDS ORDERED: SUGAMMADEX 200mg/2ml Vial (100MG/ML) IV ONE (09:55)
--- NOTE | 2024-03-01 10:16 | DVHOP2 ---
Operative Report - 2 Report Details Date: 03/01/24 Preop Diagnosis: Left renal pelvic stone, 8 mm Mild left hydronephrosis Azotemia-resolved with indwelling stent Urinary tract infection treated with antibiotics Indwelling left ureteral stent Postop Diagnosis: Same Surgeon: Vanessa Faye Anesthesiologist: Dr. Gil Anesthesia: General Drains: Five Welsh by 26 cm polaris loop ureteral stent Consent: The patient was informed of the risks and benefits of the procedure. These include but are not limited to complications of anesthesia, postoperative infection, incomplete relief of symptoms, recurrence of symptoms, damage to blood vessels, nerves and tendons, deep venous thrombosis, pulmonary embolism and possible need for repeat surgery in the future. Findings: Patient will undergo cystoscopy with stent removal and possible extracorporeal shockwave lithotripsy as outpatient. He will follow up with me in two weeks with [facility] Indications for Surgery: Patient with 8 mm left renal calculus status post stent placement for UTI management. Name of Procedure Performed Cystoscopy with left ureteral stent removal Left endoscopic laser lithotripsy of renal lithiasis Cystoscopy with left ureteral stent replacement Procedure Details Procedure Details: Patient was taken to the operating room and underwent general anesthesia. He was placed in dorsal lithotomy position with the area of the genitalia prepped and draped in usual sterile manner. Twenty-two Welsh rigid cystoscope was used to access the bladder. The ureteral stent was removed and a guidewire was placed. Navigator ureteral access sheath was then placed over the guidewire. The flexible ureteroscope was used to access the kidney and the stone was identified. Two hundred micron laser fiber was used to fragment the stone into small pieces. Towards the end of the procedure increased bleeding and contraction of the calyceal system prevented further laser therapy. Ureteroscope was removed and a guidewire was placed. Navigator sheath was then removed and five Welsh by 26 cm polaris loop ureteral stent was placed over the guidewire and properly positioned verified by fluoroscopy and cystoscopy. Wang catheter was inserted. Patient was awakened and taken to recovery room in stable condition Specimen: Stent Condition Good Disposition VANESSA FAYE MD Mar 01, 2024 10:16
--- NOTE | 2024-03-01 10:39 | DVHPN2 ---
Subjective Patient was assessed in the recovery room area. Still somnolent. Reviewed: Care Plan, H&P, Labs, Medications, Previous Orders Changes from previous H/P or p: Changes General: Per HPI Eyes: No Pain, No Vision change, No Conjunctivae inflammation, No Eyelid inflammation, No Other, No Redness ENT: No Ear pain, No Ear discharge, No Nose pain, No Nose discharge, No Nose congestion, No Mouth pain, No Mouth swelling, No Throat pain, No Throat swelling, No Other Cardiovascular: No Chest Pain, No Palpitations, No Orthopnea, No Paroxysmal Noc. Dyspnea, No Edema, No Lt Headedness, No Other Respiratory: No Cough, No Dry, No Shortness of breath, No SOB with excertion, No Wheezing, No Hemoptysis, No Pleuritic Pain, No Sputum, No Other Gastrointestinal: Nausea Genitourinary: Dysuria Musculoskeletal: No other, No neck pain, No shoulder pain, No arm pain, No back pain, No hand pain, No leg pain, No foot pain Skin: No Rash, No Lesions, No Jaundice, No Bruising, No Other Objective Vitals Vital Signs Date Time Temp Pulse Resp B/P (MAP) Pulse Ox O2 Delivery O2 Flow Rate FiO2 03/01/24 05:00 97.6 75 17 130/64 (86) 92 97.6 02/29/24 20:00 Room Air* 0 21 Intake/Output Intake and Output 03/01/24 07:00 Intake Total 1350 ml Output Total 1300 ml Balance 50 ml Intake Oral 1300 ml IV Total 50 ml Output Urine Total 1300 ml General Appearance: Other (Encephalopathic from anesthesia) HEENT: Atraumatic, PERRLA Neck: Other (HD catheter to right jugular vein) Lungs: Clear to auscultation, Normal air movement Cardiovascular: Normal S1, Normal S2 Abdomen: Normal bowel sounds Genitourinary: No Apparent Abnormalities Musculoskeletal: Normal sensory function, Normal motor function Skin: Dry, Intact Psych/Mental Status: Mental status NL, Mood NL Medications Current Medications Medications Dose Ordered Sig/Desmond Route Start Time Stop Time Status Last Admin Dose Admin Acetaminophen 500 mg Q8HP PRN PO 02/13/24 13:00 02/25/24 22:32 500 MG Ondansetron HCl 4 mg Q6HP PRN IV 02/13/24 13:00 02/25/24 07:32 4 MG Docusate Sodium 100 mg BID PRN PO 02/13/24 13:00 02/26/24 12:15 100 MG Ceftriaxone Sodium 50 ml @ 100 mls/hr DAILY@09 IV 02/14/24 09:00 02/29/24 08:49 100 MLS/HR Tamsulosin HCl 0.4 mg QPM PO 02/13/24 18:00 02/29/24 17:51 0.4 MG Patient Own Medication 2,500 mcg DAILY PO 02/14/24 10:00 Pravastatin Sodium 20 mg HS PO 02/13/24 22:00 02/29/24 22:00 20 MG Patient Own Medication 2 mg QID PO 02/15/24 22:00 02/29/24 22:00 2 MG Diagnostic Test (Pha) 1 strip Q6HR 02/22/24 00:00 03/01/24 06:19 1 STRIP Insulin Human Regular FOLLOW SLIDING SCALE Q6HR SC 02/22/24 00:00 Dextrose 50 ml UD IV 02/21/24 18:15 Pantoprazole Sodium 40 mg DAILY@0600 PO 02/25/24 06:00 02/29/24 06:22 40 MG Mirtazapine 15 mg HS PO 02/26/24 22:00 02/29/24 22:00 15 MG Bumetanide 2 mg DAILY IV 02/28/24 10:00 02/29/24 09:02 2 MG Laboratory Results Laboratory Tests 02/29/24 04:52 Urinalysis Test 02/13/24 09:15 02/15/24 14:15 02/21/24 09:00 Urine Hyaline Casts Mod /lpf (0 - 2) Urine Granular Casts Many /lpf (0) Urine Yeast (Budding) Occasional /hpf (None Urine Creatinine 175.39 mg/dL (30.0-125.0) H Urine Protein/Creatinine Ratio 1.86 Urine Sodium 94 mmol/L (40-220) Urine Total Protein 326.1 mg/dL (1-14) H Urine Color Brown (Yellow) H Urine Clarity Ex.turbid (Clear) Urine pH 5.0 (5.0-9.0) Urine Specific [place] 1.009 (1.001-1.035) Urine Protein 1+ (Negative) H Urine Ketones Negative (Negative) Urine Blood 3+ /uL (Negative) H Urine Nitrite Negative (Negative) Urine Bilirubin Negative (Negative) Urine Urobilinogen Normal mg/dL (Negative) Urine Leukocyte Esterase 1+ /uL (Negative) Urine RBC 429 /hpf (0 - 3) Urine WBC 95 /hpf (0 - 3) Urine WBC Clumps Present /hpf (None Seen) Urine Squamous Epithelial Cells Few /hpf (<5) Urine Bacteria Few /hpf (None Seen) H Urine Mucus Few (None Seen) Urine Glucose Normal mg/dL (Normal) Microbiology Microbiology Date/Time Source Procedure Growth Status 02/20/24 19:10 Nose MRSA Screen - Final Complete 02/19/24 23:30 Urine - [place] Urine Culture - Final Complete 02/19/24 09:26 Blood Blood Culture - Final NO GROWTH AFTER 5 DAYS OF INCUBATION. Complete Labs and/or images reviewed: Labs reviewed by me, Image(s) reviewed by me Assessment/Plan Assessment/Plan Impression: -complicated cystitis with E coli -renal calculi -hematuria -pancytopenia -history of prosthetic mitral valve replacement -primary hypertension -Parkinson disease -chronic kidney disease stage 3, acute kidney injury, probable ATN -chronic B-cell lymphoma Plan: -events: Patient was assessed status post cystoscopy with ureter stent replacement and lithotripsy. Hemodynamically stable. -hold anticoagulation, re-evaluate for initiation tomorrow. -nephrology consultation, recommendations reviewed -continue Rocephin -urology consultation : Recommendations reviewed -continue carbidopa levodopa -encourage p.o. intake -repeat labs, in a.m.. -social service consultation for DC planning. Patient will need home health services to assist with medications, physical therapy Total time spent with patient discussing and formulating plan of care: 40 minutes. This does not include time spent performing procedures. This medical document was created using an electronic medical record system with [employer] dictation system. Although this document has been carefully reviewed, there may still be some phonetic and typographical errors. These areas are purely typographical due to imperfections of the software programs, and do not reflect any compromise in the patient's medical care. Plan discussed with: Patient, Other (RN) My Orders Orders - SHEA GAYTAN NP Procedure Category Date Status Time Basic Metabolic Panel LAB 03/02/24 Verified 04:00 Complete Blood Count LAB 03/02/24 Verified 04:00 Date of Service: Mar 01, 2024 Billing Provider: SHEA GAYTAN NP Common Visit Codes: [id number] INP/OBS CARE(HIGH) SHEA GAYTAN NP Mar 01, 2024 10:39
--- NOTE | 2024-03-01 12:55 | DVH ---
C-ARM FLUOROSCOPY: PROCEDURE: left ureteroscope FLUOROSCOPY TIME: 30.50sec
--- NOTE | 2024-03-01 12:55 | DVH ---
C-ARM FLUOROSCOPY: PROCEDURE: left ureteroscope FLUOROSCOPY TIME: 30.50sec
--- NOTE | 2024-03-01 14:50 | DVHPN2 ---
Progress Note - Dictate Date Seen: Mar 01, 2024 Has the PT tested + for MRSA If YES, has PT been informed?: No Medical Necessity Reason Pt with a Central, PICC or Fol: Yes The following are medically ne: Osullivan Catheter Reason for osullivan catheter: Bladder Retention/Obstruc, Strict I&O Subjective NAD vital signs Vital Sign Date Time Temp Pulse Resp B/P (MAP) Pulse Ox O2 Delivery O2 Flow Rate FiO2 03/01/24 12:36 97.5 66 16 113/33 (59) 97 97.5 03/01/24 11:09 Nasal Cannula 2.0 97 Total Intake and Output 02/29/24 02/29/24 03/01/24 15:00 23:00 07:00 Intake Total 1250 ml 0 ml 100 ml Output Total 750 ml 200 ml 350 ml Balance 500 ml -200 ml -250 ml medications Current Medications Medications Dose Ordered Sig/Desmond Route Start Time Stop Time Status Last Admin Dose Admin Acetaminophen 500 mg Q8HP PRN PO 02/13/24 13:00 02/25/24 22:32 500 MG Ondansetron HCl 4 mg Q6HP PRN IV 02/13/24 13:00 02/25/24 07:32 4 MG Docusate Sodium 100 mg BID PRN PO 02/13/24 13:00 02/26/24 12:15 100 MG Ceftriaxone Sodium 50 ml @ 100 mls/hr DAILY@09 IV 02/14/24 09:00 03/01/24 09:00 100 MLS/HR Tamsulosin HCl 0.4 mg QPM PO 02/13/24 18:00 02/29/24 17:51 0.4 MG Patient Own Medication 2,500 mcg DAILY PO 02/14/24 10:00 Pravastatin Sodium 20 mg HS PO 02/13/24 22:00 02/29/24 22:00 20 MG Patient Own Medication 2 mg QID PO 02/15/24 22:00 03/01/24 12:00 2 MG Diagnostic Test (Pha) 1 strip Q6HR 02/22/24 00:00 03/01/24 12:00 1 STRIP Insulin Human Regular FOLLOW SLIDING SCALE Q6HR SC 02/22/24 00:00 Dextrose 50 ml UD IV 02/21/24 18:15 Pantoprazole Sodium 40 mg DAILY@0600 PO 11/9/24 06:00 02/29/24 06:22 40 MG Mirtazapine 15 mg HS PO 02/26/24 22:00 02/29/24 22:00 15 MG Bumetanide 2 mg DAILY IV 02/28/24 10:00 03/01/24 10:00 2 MG Trazodone HCl 50 mg HS PO 03/01/24 22:00 laboratory and microbiology Laboratory Tests 02/29/24 04:52 Test 02/29/24 04:52 Range/Units Serum Glucose 96 74-106 mg/dL Assessment/Plan Acute kidney injury superimposed Chronic Kidney Disease 3B, secondary to ATN s/p HD Acute urinary retention Left nonobstructing kidney stone Pyelonephritis E coli urinary tract infection Pancytopenia Chronic diastolic heart failure Prosthetic mitral valve Parkinson's disease Abdominal aortic aneurysm Hypophosphatemia no further dialysis diuretics reduced dose and uop 2.2L Strict I&Os IV antibiotics went to OR today for stone removal stable from renal standpoint Dietary Evaluation Review Comments: 1) Consider a Renal Specific K2,low phos,ROCÍO,2gmNa,80g Pro diet 2) Continue current plan of care Expected Outcomes/Goals: 1) Pt labs to improve Plan discussed with: Patient KEEGAN CALDERON MD Mar 01, 2024 14:50
[2024-03-01] MEDS: traZODone HCL 50 MG TAB PO SCH (21:56)
[2024-03-02] VITALS (9 sets, daily range): BP systolic 98–138; BP diastolic 45–72; PULSE 70–77; RESP 16–18; TEMP 97.7–98.6; O2SAT 92–97
[2024-03-02 06:59] LABS: Basophils # (auto) 0 10 ^3/uL (0-0.2); Basophils % (auto) 1.1 % (0.0-2.0); Eosinophils # (auto) 0.1 10 ^3/uL (0-0.8); Eosinophils % (auto) 2.3 % (0.0-7.0); Hematocrit 26.8 % (41.0-53.0); Hemoglobin 9.3 g/dL (13.5-17.5); Lymphocytes # (auto) 0.5 10 ^3/uL (0.4-5.4); Lymphocytes % (auto) 15.6 % (10.0-50.0); Mean Corpuscular Hgb Conc. 34.7 g/dL (32.0-36.0); Mean Corpuscular Volume 86.5 fL (80.0-100.0); Monocytes # (auto) 0.5 10 ^3/uL (0-1.3); Monocytes % (auto) 15.2 % (0.0-12.0); Neutrophils # (auto) 2.2 10 ^3/uL (1.6-8.6); Neutrophils % (auto) 65.8 % (37.0-80.0); Platelet Count (auto) 123 10^3/uL (140-450); Red Cell Distribution Width 13.5 % (11.8-14.3); White Blood Cell 3.4 10^3/uL (4.4-10.8)
[2024-03-02 07:02] LABS: Anion Gap 12 (5-15); Carbon Dioxide 29 mmol/L (20-31); Chloride 105 mmol/L (98-107); Potassium 3.8 mmol/L (3.5-5.1); Sodium 146 mmol/L (136-145)
[2024-03-02 07:04] LABS: Calcium 9.5 mg/dL (8.7-10.4)
[2024-03-02 07:08] LABS: BUN/Creatinine Ratio 23.8 (10.0-20.0); Blood Urea Nitrogen 40 mg/dL (9-23); Glucose 92 mg/dL (74-106)
--- NOTE | 2024-03-02 12:35 | DVHPN2 ---
Subjective Patient denies any symptoms. Reviewed: Care Plan, H&P, Labs, Medications, Previous Orders Changes from previous H/P or p: No Changes General: Per HPI Eyes: No Pain, No Vision change, No Conjunctivae inflammation, No Eyelid inflammation, No Other, No Redness ENT: No Ear pain, No Ear discharge, No Nose pain, No Nose discharge, No Nose congestion, No Mouth pain, No Mouth swelling, No Throat pain, No Throat swelling, No Other Cardiovascular: No Chest Pain, No Palpitations, No Orthopnea, No Paroxysmal Noc. Dyspnea, No Edema, No Lt Headedness, No Other Respiratory: No Cough, No Dry, No Shortness of breath, No SOB with excertion, No Wheezing, No Hemoptysis, No Pleuritic Pain, No Sputum, No Other Gastrointestinal: Nausea Genitourinary: Dysuria Musculoskeletal: No other, No neck pain, No shoulder pain, No arm pain, No back pain, No hand pain, No leg pain, No foot pain Skin: No Rash, No Lesions, No Jaundice, No Bruising, No Other Objective Vitals Vital Signs Date Time Temp Pulse Resp B/P (MAP) Pulse Ox O2 Delivery O2 Flow Rate FiO2 03/02/24 10:31 112/54 03/02/24 10:31 74 18 95 03/02/24 09:00 98.2 98.2 03/02/24 08:00 Room Air* 0 21 Intake/Output Intake and Output 03/02/24 07:00 Intake Total 370 ml Output Total 1215 ml Balance -845 ml Intake Oral 220 ml IV Total 150 ml Output Urine Total 1215 ml # Bowel Movements 2 General Appearance: Alert, Oriented X3, Cooperative, Other (Encephalopathic from anesthesia) HEENT: Atraumatic, PERRLA Neck: Other (HD catheter to right jugular vein) Lungs: Clear to auscultation, Normal air movement Cardiovascular: Normal S1, Normal S2 Abdomen: Normal bowel sounds Genitourinary: Hematuria, Other (Wang catheter) Musculoskeletal: Normal sensory function, Normal motor function Skin: Dry, Intact Psych/Mental Status: Mental status NL, Mood NL Medications Current Medications Medications Dose Ordered Sig/Desmond Route Start Time Stop Time Status Last Admin Dose Admin Acetaminophen 500 mg Q8HP PRN PO 02/13/24 13:00 02/25/24 22:32 500 MG Ondansetron HCl 4 mg Q6HP PRN IV 02/13/24 13:00 02/25/24 07:32 4 MG Docusate Sodium 100 mg BID PRN PO 02/13/24 13:00 02/26/24 12:15 100 MG Ceftriaxone Sodium 50 ml @ 100 mls/hr DAILY@09 IV 02/14/24 09:00 03/02/24 10:27 100 MLS/HR Tamsulosin HCl 0.4 mg QPM PO 02/13/24 18:00 03/01/24 18:00 0.4 MG Patient Own Medication 2,500 mcg DAILY PO 02/14/24 10:00 Pravastatin Sodium 20 mg HS PO 02/13/24 22:00 03/01/24 21:56 20 MG Patient Own Medication 2 mg QID PO 02/15/24 22:00 03/02/24 05:22 2 MG Diagnostic Test (Pha) 1 strip Q6HR 02/22/24 00:00 03/02/24 06:07 1 STRIP Insulin Human Regular FOLLOW SLIDING SCALE Q6HR SC 02/22/24 00:00 Dextrose 50 ml UD IV 02/21/24 18:15 Pantoprazole Sodium 40 mg DAILY@0600 PO 02/25/24 06:00 03/02/24 05:22 40 MG Mirtazapine 15 mg HS PO 02/26/24 22:00 03/01/24 21:57 15 MG Bumetanide 2 mg DAILY IV 02/28/24 10:00 03/02/24 10:31 2 MG Trazodone HCl 50 mg HS PO 03/01/24 22:00 03/01/24 21:56 50 MG Laboratory Results Laboratory Tests 03/02/24 06:24 Chemistry Test 03/02/24 06:24 Calcium Level 9.5 mg/dL (8.7-10.4) Urinalysis Test 02/13/24 09:15 02/15/24 14:15 02/21/24 09:00 Urine Hyaline Casts Mod /lpf (0 - 2) Urine Granular Casts Many /lpf (0) Urine Yeast (Budding) Occasional /hpf (None Urine Creatinine 175.39 mg/dL (30.0-125.0) H Urine Protein/Creatinine Ratio 1.86 Urine Sodium 94 mmol/L (40-220) Urine Total Protein 326.1 mg/dL (1-14) H Urine Color Brown (Yellow) H Urine Clarity Ex.turbid (Clear) Urine pH 5.0 (5.0-9.0) Urine Specific [place] 1.009 (1.001-1.035) Urine Protein 1+ (Negative) H Urine Ketones Negative (Negative) Urine Blood 3+ /uL (Negative) H Urine Nitrite Negative (Negative) Urine Bilirubin Negative (Negative) Urine Urobilinogen Normal mg/dL (Negative) Urine Leukocyte Esterase 1+ /uL (Negative) Urine RBC 429 /hpf (0 - 3) Urine WBC 95 /hpf (0 - 3) Urine WBC Clumps Present /hpf (None Seen) Urine Squamous Epithelial Cells Few /hpf (<5) Urine Bacteria Few /hpf (None Seen) H Urine Mucus Few (None Seen) Urine Glucose Normal mg/dL (Normal) Microbiology Microbiology Date/Time Source Procedure Growth Status 02/20/24 19:10 Nose MRSA Screen - Final Complete 02/19/24 23:30 Urine - [place] Urine Culture - Final Complete 02/19/24 09:26 Blood Blood Culture - Final NO GROWTH AFTER 5 DAYS OF INCUBATION. Complete Labs and/or images reviewed: Labs reviewed by me, Image(s) reviewed by me Assessment/Plan Assessment/Plan Impression: -complicated cystitis with E coli -renal calculi -hematuria -pancytopenia -history of prosthetic mitral valve replacement -primary hypertension -Parkinson disease -chronic kidney disease stage 3, acute kidney injury, probable ATN -chronic B-cell lymphoma Plan: -events: Patient more alert today. Noted to ambulate with physical therapy. Home health services has not been established yet. Nurse to educate son on how to give enoxaparin injection. Restart bridge therapy. -hold anticoagulation, re-evaluate for initiation tomorrow. -nephrology consultation, recommendations reviewed -continue Rocephin -urology consultation : Recommendations reviewed -continue carbidopa levodopa -encourage p.o. intake -repeat labs, in a.m.. -social service consultation for DC planning. Patient will need home health services to assist with medications, physical therapy Total time spent with patient discussing and formulating plan of care: 40 minutes. This does not include time spent performing procedures. This medical document was created using an electronic medical record system with [employer] system. Although this document has been carefully reviewed, there may still be some phonetic and typographical errors. These areas are purely typographical due to imperfections of the software programs, and do not reflect any compromise in the patient's medical care. Plan discussed with: Patient, Other (RN) My Orders Orders - SHEA GAYTAN NP Procedure Category Date Status Time Warfarin Per Rx PHA 03/02/24 Verified Protocol (Coumadin 12:45 Enoxaparin Sodium PHA 03/02/24 Verified (Lovenox) 22:00 Date of Service: Mar 02, 2024 Billing Provider: SHEA GAYTAN NP Common Visit Codes: [id number] INP/OBS CARE(HIGH) SHEA GAYTAN NP Mar 02, 2024 12:35
--- NOTE | 2024-03-02 14:53 | DVHPN2 ---
Progress Note - Dictate Date Seen: Mar 02, 2024 Has the PT tested + for MRSA If YES, has PT been informed?: No Medical Necessity Reason Pt with a Central, PICC or Fol: Yes The following are medically ne: Osullivan Catheter Reason for osullivan catheter: Bladder Retention/Obstruc, Strict I&O Subjective NAD vital signs Vital Sign Date Time Temp Pulse Resp B/P (MAP) Pulse Ox O2 Delivery O2 Flow Rate FiO2 03/02/24 13:00 98.0 77 18 116/45 (68) 96 98.0 03/02/24 08:00 Room Air* 0 21 Total Intake and Output 03/01/24 03/01/24 03/02/24 15:00 23:00 07:00 Intake Total 150 ml 100 ml 120 ml Output Total 740 ml 475 ml Balance 150 ml -640 ml -355 ml medications Current Medications Medications Dose Ordered Sig/Desmond Route Start Time Stop Time Status Last Admin Dose Admin Acetaminophen 500 mg Q8HP PRN PO 02/13/24 13:00 02/25/24 22:32 500 MG Ondansetron HCl 4 mg Q6HP PRN IV 02/13/24 13:00 02/25/24 07:32 4 MG Docusate Sodium 100 mg BID PRN PO 02/13/24 13:00 02/26/24 12:15 100 MG Ceftriaxone Sodium 50 ml @ 100 mls/hr DAILY@09 IV 02/14/24 09:00 03/02/24 10:27 100 MLS/HR Tamsulosin HCl 0.4 mg QPM PO 02/13/24 18:00 03/01/24 18:00 0.4 MG Patient Own Medication 2,500 mcg DAILY PO 02/14/24 10:00 Pravastatin Sodium 20 mg HS PO 02/13/24 22:00 03/01/24 21:56 20 MG Patient Own Medication 2 mg QID PO 02/15/24 22:00 03/02/24 12:00 2 MG Diagnostic Test (Pha) 1 strip Q6HR 02/22/24 00:00 03/02/24 12:00 1 STRIP Insulin Human Regular FOLLOW SLIDING SCALE Q6HR SC 02/22/24 00:00 Dextrose 50 ml UD IV 02/21/24 18:15 Pantoprazole Sodium 40 mg DAILY@0600 PO 02/25/24 06:00 03/02/24 05:22 40 MG Mirtazapine 15 mg HS PO 02/26/24 22:00 03/01/24 21:57 15 MG Bumetanide 2 mg DAILY IV 02/28/24 10:00 03/02/24 10:31 2 MG Trazodone HCl 50 mg HS PO 03/01/24 22:00 03/01/24 21:56 50 MG Warfarin Sodium RX PROTOCOL PER PHARMACY PO 03/02/24 12:45 Enoxaparin Sodium 100 mg Q12HR SC 03/02/24 22:00 objective elderly WM NAD large abd nt, nd trace edema osullivan catheter laboratory and microbiology Laboratory Tests 03/02/24 06:24 Test 03/02/24 06:24 Range/Units Serum Glucose 92 74-106 mg/dL Assessment/Plan Acute kidney injury superimposed Chronic Kidney Disease 3B, secondary to ATN s/p HD Acute urinary retention Left nonobstructing kidney stone s/p stent and stone removal 03/01/24 Pyelonephritis E coli urinary tract infection Pancytopenia Chronic diastolic heart failure Prosthetic mitral valve Parkinson's disease Abdominal aortic aneurysm Hypophosphatemia no further dialysis completed urology procedure yesterday diuretics convert to po Strict I&Os IV antibiotics Dietary Evaluation Review Comments: 1) Consider a Renal Specific K2,low phos,ROCÍO,2gmNa,80g Pro diet 2) Continue current plan of care Expected Outcomes/Goals: 1) Pt labs to improve Plan discussed with: Patient KEEGAN CALDERON MD Mar 02, 2024 14:53
[2024-03-02] MEDS: WARFARIN SODIUM 2 MG TAB PO ONE (17:46)
[2024-03-02] MEDS: ENOXAPARIN SOD 100 MG/1 ML SYRINGE SC SCH (21:07)
[2024-03-03 05:00] VITALS: BP 126/56; PULSE 74; RESP 18; TEMP 97.7; O2SAT 97
[2024-03-03 06:36] LABS: Basophils # (auto) 0.1 10 ^3/uL (0-0.2); Basophils % (auto) 2.5 % (0.0-2.0); Eosinophils # (auto) 0.1 10 ^3/uL (0-0.8); Eosinophils % (auto) 3.7 % (0.0-7.0); Hematocrit 25.4 % (41.0-53.0); Lymphocytes # (auto) 0.6 10 ^3/uL (0.4-5.4); Lymphocytes % (auto) 21.9 % (10.0-50.0); Mean Corpuscular Hemoglobin 30.7 pg (28.0-32.0); Mean Corpuscular Hgb Conc. 35.3 g/dL (32.0-36.0); Monocytes # (auto) 0.5 10 ^3/uL (0-1.3); Monocytes % (auto) 17.2 % (0.0-12.0); Neutrophils # (auto) 1.5 10 ^3/uL (1.6-8.6); Neutrophils % (auto) 54.7 % (37.0-80.0); Nucleated Red Blood Cells % 0.1 %; Platelet Count (auto) 120 10^3/uL (140-450); Red Blood Cells 2.91 10^6/uL (4.5-5.90); Red Cell Distribution Width 13.7 % (11.8-14.3); White Blood Cell 2.8 10^3/uL (4.4-10.8)
[2024-03-03 07:13] LABS: INR 1.35 (0.9-1.15)
[2024-03-03 09:00] VITALS: BP 95/47; PULSE 69; RESP 20; TEMP 97.7; O2SAT 95
[2024-03-03] MEDS: BUMETANIDE 1 MG TAB PO SCH (09:32)
--- NOTE | 2024-03-03 09:40 | DVHPN2 ---
Progress Note - Dictate Date Seen: Mar 03, 2024 Has the PT tested + for MRSA If YES, has PT been informed?: No Medical Necessity Reason Pt with a Central, PICC or Fol: Yes The following are medically ne: Osullivan Catheter Reason for osullivan catheter: Bladder Retention/Obstruc, Strict I&O Subjective NAD vital signs Vital Sign Date Time Temp Pulse Resp B/P (MAP) Pulse Ox O2 Delivery O2 Flow Rate FiO2 03/03/24 09:32 122/44 03/03/24 05:00 97.7 74 18 97 97.7 03/02/24 20:00 Room Air* 0 21 Total Intake and Output 03/02/24 03/02/24 03/03/24 15:00 23:00 07:00 Intake Total 168 ml 200 ml 800 ml Output Total 700 ml 450 ml Balance 168 ml -500 ml 350 ml medications Current Medications Medications Dose Ordered Sig/Desmond Route Start Time Stop Time Status Last Admin Dose Admin Acetaminophen 500 mg Q8HP PRN PO 02/13/24 13:00 02/25/24 22:32 500 MG Ondansetron HCl 4 mg Q6HP PRN IV 02/13/24 13:00 02/25/24 07:32 4 MG Docusate Sodium 100 mg BID PRN PO 02/13/24 13:00 02/26/24 12:15 100 MG Ceftriaxone Sodium 50 ml @ 100 mls/hr DAILY@09 IV 02/14/24 09:00 03/03/24 09:33 100 MLS/HR Tamsulosin HCl 0.4 mg QPM PO 02/13/24 18:00 03/02/24 17:46 0.4 MG Patient Own Medication 2,500 mcg DAILY PO 02/14/24 10:00 Pravastatin Sodium 20 mg HS PO 02/13/24 22:00 03/02/24 21:07 20 MG Patient Own Medication 2 mg QID PO 02/15/24 22:00 03/02/24 21:06 2 MG Diagnostic Test (Pha) 1 strip Q6HR 02/22/24 00:00 03/03/24 06:15 1 STRIP Insulin Human Regular FOLLOW SLIDING SCALE Q6HR SC 02/22/24 00:00 Dextrose 50 ml UD IV 02/21/24 18:15 Pantoprazole Sodium 40 mg DAILY@0600 PO 11/9/24 06:00 03/03/24 05:52 40 MG Mirtazapine 15 mg HS PO 02/26/24 22:00 03/02/24 21:07 15 MG Trazodone HCl 50 mg HS PO 03/01/24 22:00 03/02/24 21:12 50 MG Warfarin Sodium RX PROTOCOL PER PHARMACY PO 03/02/24 12:45 Enoxaparin Sodium 100 mg Q12HR SC 03/02/24 22:00 03/03/24 09:29 100 MG Bumetanide 1 mg DAILY PO 03/03/24 10:00 03/03/24 09:32 1 MG objective elderly WM NAD large abd nt, nd trace edema osullivan catheter laboratory and microbiology Laboratory Tests 03/03/24 06:07 03/02/24 06:24 Test 03/02/24 06:24 Range/Units Serum Glucose 92 74-106 mg/dL Assessment/Plan Acute kidney injury superimposed Chronic Kidney Disease 3B, secondary to ATN s/p HD Acute urinary retention Left nonobstructing kidney stone s/p stent and stone removal 03/01/24 Pyelonephritis E coli urinary tract infection Pancytopenia Chronic diastolic heart failure Prosthetic mitral valve Parkinson's disease Abdominal aortic aneurysm Hypophosphatemia no further dialysis completed urology procedure yesterday diuretics convert to po Strict I&Os IV antibiotics no further renal recs at this time Dietary Evaluation Review Comments: 1) Consider a Renal Specific K2,low phos,ROCÍO,2gmNa,80g Pro diet 2) Continue current plan of care Expected Outcomes/Goals: 1) Pt labs to improve Plan discussed with: Patient KEEGAN CALDERON MD Mar 03, 2024 09:40
[2024-03-03 16:33] VITALS: BP 138/45; PULSE 73; RESP 20; TEMP 98.6; O2SAT 91
[2024-03-03] MEDS: WARFARIN SODIUM 2 MG TAB PO ONE (16:38)
--- NOTE | 2024-03-03 17:10 | DVHPN2 ---
Subjective Patient denies any symptoms. Reviewed: Care Plan, H&P, Labs, Medications, Previous Orders Changes from previous H/P or p: No Changes General: Per HPI Eyes: No Pain, No Vision change, No Conjunctivae inflammation, No Eyelid inflammation, No Other, No Redness ENT: No Ear pain, No Ear discharge, No Nose pain, No Nose discharge, No Nose congestion, No Mouth pain, No Mouth swelling, No Throat pain, No Throat swelling, No Other Cardiovascular: No Chest Pain, No Palpitations, No Orthopnea, No Paroxysmal Noc. Dyspnea, No Edema, No Lt Headedness, No Other Respiratory: No Cough, No Dry, No Shortness of breath, No SOB with excertion, No Wheezing, No Hemoptysis, No Pleuritic Pain, No Sputum, No Other Gastrointestinal: Nausea Genitourinary: Dysuria Musculoskeletal: No other, No neck pain, No shoulder pain, No arm pain, No back pain, No hand pain, No leg pain, No foot pain Skin: No Rash, No Lesions, No Jaundice, No Bruising, No Other Objective Vitals Vital Signs Date Time Temp Pulse Resp B/P (MAP) Pulse Ox O2 Delivery O2 Flow Rate FiO2 03/03/24 16:33 98.6 73 20 138/45 (76) 91 98.6 03/03/24 08:15 Room Air* 0 21 Intake/Output Intake and Output 03/03/24 07:00 Intake Total 1168 ml Output Total 1150 ml Balance 18 ml Intake Oral 1118 ml IV Total 50 ml Output Urine Total 1150 ml General Appearance: Alert, Oriented X3, Cooperative, Other (Encephalopathic from anesthesia) HEENT: Atraumatic, PERRLA Neck: Other (HD catheter to right jugular vein) Lungs: Clear to auscultation, Normal air movement Cardiovascular: Normal S1, Normal S2 Abdomen: Normal bowel sounds Genitourinary: Hematuria, Other (Wang catheter) Musculoskeletal: Normal sensory function, Normal motor function Skin: Dry, Intact Psych/Mental Status: Mental status NL, Mood NL Medications Current Medications Medications Dose Ordered Sig/Desmond Route Start Time Stop Time Status Last Admin Dose Admin Acetaminophen 500 mg Q8HP PRN PO 02/13/24 13:00 02/25/24 22:32 500 MG Ondansetron HCl 4 mg Q6HP PRN IV 02/13/24 13:00 02/25/24 07:32 4 MG Docusate Sodium 100 mg BID PRN PO 02/13/24 13:00 02/26/24 12:15 100 MG Ceftriaxone Sodium 50 ml @ 100 mls/hr DAILY@09 IV 02/14/24 09:00 03/03/24 09:33 100 MLS/HR Tamsulosin HCl 0.4 mg QPM PO 02/13/24 18:00 03/03/24 16:38 0.4 MG Patient Own Medication 2,500 mcg DAILY PO 02/14/24 10:00 Pravastatin Sodium 20 mg HS PO 02/13/24 22:00 03/02/24 21:07 20 MG Patient Own Medication 2 mg QID PO 02/15/24 22:00 03/02/24 21:06 2 MG Diagnostic Test (Pha) 1 strip Q6HR 02/22/24 00:00 03/03/24 12:05 1 STRIP Insulin Human Regular FOLLOW SLIDING SCALE Q6HR SC 02/22/24 00:00 Dextrose 50 ml UD IV 02/21/24 18:15 Pantoprazole Sodium 40 mg DAILY@0600 PO 02/25/24 06:00 03/03/24 05:52 40 MG Mirtazapine 15 mg HS PO 02/26/24 22:00 03/02/24 21:07 15 MG Trazodone HCl 50 mg HS PO 03/01/24 22:00 03/02/24 21:12 50 MG Warfarin Sodium RX PROTOCOL PER PHARMACY PO 03/02/24 12:45 Enoxaparin Sodium 100 mg Q12HR SC 03/02/24 22:00 03/03/24 09:29 100 MG Bumetanide 1 mg DAILY PO 03/03/24 10:00 03/03/24 09:32 1 MG Laboratory Results Laboratory Tests 03/02/24 06:24 03/03/24 06:07 Coagulation Test 03/03/24 06:07 Prothrombin Time 14.0 sec (9.3-11.8) H Prothrombin Time INR 1.35 (0.9-1.15) H Activated Partial Thromboplast Time 31.0 SEC (24.5-34.5) Urinalysis Test 02/13/24 09:15 02/15/24 14:15 02/21/24 09:00 Urine Hyaline Casts Mod /lpf (0 - 2) Urine Granular Casts Many /lpf (0) Urine Yeast (Budding) Occasional /hpf (None Urine Creatinine 175.39 mg/dL (30.0-125.0) H Urine Protein/Creatinine Ratio 1.86 Urine Sodium 94 mmol/L (40-220) Urine Total Protein 326.1 mg/dL (1-14) H Urine Color Brown (Yellow) H Urine Clarity Ex.turbid (Clear) Urine pH 5.0 (5.0-9.0) Urine Specific [place] 1.009 (1.001-1.035) Urine Protein 1+ (Negative) H Urine Ketones Negative (Negative) Urine Blood 3+ /uL (Negative) H Urine Nitrite Negative (Negative) Urine Bilirubin Negative (Negative) Urine Urobilinogen Normal mg/dL (Negative) Urine Leukocyte Esterase 1+ /uL (Negative) Urine RBC 429 /hpf (0 - 3) Urine WBC 95 /hpf (0 - 3) Urine WBC Clumps Present /hpf (None Seen) Urine Squamous Epithelial Cells Few /hpf (<5) Urine Bacteria Few /hpf (None Seen) H Urine Mucus Few (None Seen) Urine Glucose Normal mg/dL (Normal) Microbiology Microbiology Date/Time Source Procedure Growth Status 02/20/24 19:10 Nose MRSA Screen - Final Complete 02/19/24 23:30 Urine - [place] Urine Culture - Final Complete 02/19/24 09:26 Blood Blood Culture - Final NO GROWTH AFTER 5 DAYS OF INCUBATION. Complete Labs and/or images reviewed: Labs reviewed by me, Image(s) reviewed by me Assessment/Plan Assessment/Plan Impression: -complicated cystitis with E coli -renal calculi -hematuria -pancytopenia -history of prosthetic mitral valve replacement -primary hypertension -Parkinson disease -chronic kidney disease stage 3, acute kidney injury, probable ATN -chronic B-cell lymphoma Plan: -events: Hematuria, worse than yesterday. Continue Coumadin. Stop therapeutic dose Lovenox. -nephrology consultation, recommendations reviewed -continue Rocephin -urology consultation : Recommendations reviewed -continue carbidopa levodopa -encourage p.o. intake -repeat labs, in a.m.. -social service consultation for DC planning. Patient will need home health services to assist with medications, physical therapy reassess for discharge tomorrow Total time spent with patient discussing and formulating plan of care: 40 minutes. This does not include time spent performing procedures. This medical document was created using an electronic medical record system with [employer] system. Although this document has been carefully reviewed, there may still be some phonetic and typographical errors. These areas are purely typographical due to imperfections of the software programs, and do not reflect any compromise in the patient's medical care. Plan discussed with: Patient, Other (RN) My Orders Orders - SHEA GAYTAN NP Procedure Category Date Status Time Complete Blood Count LAB 03/04/24 Verified 04:00 PTPTT LAB 03/04/24 Verified 04:00 Basic Metabolic Panel LAB 03/04/24 Verified 04:00 Date of Service: Mar 03, 2024 Billing Provider: SHEA GAYTAN NP Common Visit Codes: [id number] INP/OBS CARE(HIGH) SHEA GAYTAN NP Mar 03, 2024 17:10
[2024-03-03 20:00] VITALS: PULSE 78; RESP 17; O2SAT 98
[2024-03-03 22:00] VITALS: BP 133/70; PULSE 79; RESP 20; TEMP 100.1; O2SAT 98
[2024-03-04 01:00] VITALS: BP 152/67; PULSE 69; RESP 20; TEMP 98.4; O2SAT 99
[2024-03-04 05:00] VITALS: BP 118/52; PULSE 88; RESP 20; TEMP 98.9; O2SAT 99
[2024-03-04 07:03] LABS: Basophils # (auto) 0.1 10 ^3/uL (0-0.2); Basophils % (auto) 2.1 % (0.0-2.0); Eosinophils # (auto) 0.1 10 ^3/uL (0-0.8); Eosinophils % (auto) 2.5 % (0.0-7.0); Hemoglobin 9.6 g/dL (13.5-17.5); Lymphocytes # (auto) 0.5 10 ^3/uL (0.4-5.4); Lymphocytes % (auto) 17.1 % (10.0-50.0); Mean Corpuscular Hemoglobin 30.8 pg (28.0-32.0); Mean Corpuscular Hgb Conc. 35.4 g/dL (32.0-36.0); Mean Corpuscular Volume 87.1 fL (80.0-100.0); Monocytes # (auto) 0.5 10 ^3/uL (0-1.3); Monocytes % (auto) 16.7 % (0.0-12.0); Neutrophils # (auto) 1.8 10 ^3/uL (1.6-8.6); Neutrophils % (auto) 61.6 % (37.0-80.0); Platelet Count (auto) 132 10^3/uL (140-450); Red Cell Distribution Width 13.8 % (11.8-14.3)
[2024-03-04 07:15] LABS: Chloride 106 mmol/L (98-107); Potassium 3.3 mmol/L (3.5-5.1); Sodium 146 mmol/L (136-145)
[2024-03-04 07:16] LABS: Anion Gap 10 (5-15); Carbon Dioxide 30 mmol/L (20-31)
[2024-03-04 07:17] LABS: Calcium 9.6 mg/dL (8.7-10.4)
[2024-03-04 07:22] LABS: BUN/Creatinine Ratio 22.8 (10.0-20.0); Blood Urea Nitrogen 33 mg/dL (9-23); Glucose 93 mg/dL (74-106)
[2024-03-04 07:55] LABS: INR 1.43 (0.9-1.15); Partial Thromboplastin Time 29.1 SEC (24.5-34.5); Prothrombin Time 14.8 sec (9.3-11.8)
[2024-03-04 09:00] VITALS: BP 118/46; PULSE 74; RESP 18; TEMP 98.1; O2SAT 97
--- NOTE | 2024-03-04 12:30 | DVHDS2 ---
Discharge Summary Date of Admission Feb 13, 2024 at 12:54 Date of Discharge: Mar 04, 2024 Admitting Diagnosis Complicated cystitis Labs/Diagnostic Data: Laboratory Results Test 03/04/24 06:21 03/04/24 06:12 02/28/24 04:34 02/23/24 04:51 POC Glucose 93 mg/dl (70-106) White Blood Count 3.0 10^3/uL (4.4-10.8) Red Blood Count 3.10 10^6/uL (4.5-5.90) Hemoglobin 9.6 g/dL (13.5-17.5) Hematocrit 27.0 % (41.0-53.0) Mean Corpuscular Volume 87.1 fL (80.0-100.0) Mean Corpuscular Hemoglobin 30.8 pg (28.0-32.0) Mean Corpuscular Hemoglobin Concent 35.4 g/dL (32.0-36.0) Red Cell Distribution Width 13.8 % (11.8-14.3) Platelet Count 132 10^3/uL (140-450) Mean Platelet Volume 8.6 fL (6.9-10.8) Neutrophils (%) (Auto) 61.6 % (37.0-80.0) Lymphocytes (%) (Auto) 17.1 % (10.0-50.0) Monocytes (%) (Auto) 16.7 % (0.0-12.0) Eosinophils (%) (Auto) 2.5 % (0.0-7.0) Basophils (%) (Auto) 2.1 % (0.0-2.0) Neutrophils # (Auto) 1.8 10 ^3/uL (1.6-8.6) Lymphocytes # (Auto) 0.5 10 ^3/uL (0.4-5.4) Monocytes # (Auto) 0.5 10 ^3/uL (0-1.3) Eosinophils # (Auto) 0.1 10 ^3/uL (0-0.8) Basophils # (Auto) 0.1 10 ^3/uL (0-0.2) Nucleated Red Blood Cells 0.0 % Prothrombin Time 14.8 sec (9.3-11.8) Prothrombin Time INR 1.43 (0.9-1.15) Activated Partial Thromboplast Time 29.1 SEC (24.5-34.5) Sodium Level 146 mmol/L (136-145) Potassium Level 3.3 mmol/L (3.5-5.1) Chloride Level 106 mmol/L (98-107) Carbon Dioxide Level 30 mmol/L (20-31) Anion Gap 10 (5-15) Blood Urea Nitrogen 33 mg/dL (9-23) Creatinine 1.45 mg/dL (0.700-1.30) Glomerular Filtration Rate Calc 49 mL/min (>90) BUN/Creatinine Ratio 22.8 (10.0-20.0) Serum Glucose 93 mg/dL (74-106) Calcium Level 9.6 mg/dL (8.7-10.4) Estimated GFR () 55 mL/min Estimated GFR (Non- 45 mL/min Phosphorus Level 2.6 mg/dL (2.4-5.1) Magnesium Level 1.9 mg/dL (1.6-2.6) Total Bilirubin 0.7 mg/dL (0.2-1.0) Aspartate Amino Transferase (AST) 17 U/L (13-40) Alanine Aminotransferase (ALT) < 9 U/L (7-40) Alkaline Phosphatase 73 U/L (46-116) Total Protein 6.2 g/dL (5.7-8.2) Albumin 3.8 g/dL (3.2-4.8) Hepatitis A IgM Antibody Negative Hepatitis B Surface Antigen Negative (Negative) Hepatitis B Core IgM Antibody Negative Hepatitis C Antibody Negative (Negative) Test 02/22/24 04:35 02/21/24 09:44 02/21/24 09:00 02/20/24 10:05 Triglycerides Level 117 mg/dL (< 150) Uric Acid 11.8 mg/dL (3.7-9.2) Ammonia 18 umol/L (11-32) Vitamin D 25-Hydroxy 25 ng/mL (.) 25-Hydroxy Vitamin D2 <1.0 ng/mL (.) 25-Hydroxy Vitamin D3 25 ng/mL (.) Thyroid Stimulating Hormone (TSH) 0.62 uIU/mL (0.55-4.78) Urine Color Brown (Yellow) Urine Clarity Ex.turbid (Clear) Urine pH 5.0 (5.0-9.0) Urine Specific [place] 1.009 (1.001-1.035) Urine Protein 1+ (Negative) Urine Ketones Negative (Negative) Urine Blood 3+ /uL (Negative) Urine Nitrite Negative (Negative) Urine Bilirubin Negative (Negative) Urine Urobilinogen Normal mg/dL (Negative) Urine Leukocyte Esterase 1+ /uL (Negative) Urine RBC 429 /hpf (0 - 3) Urine WBC 95 /hpf (0 - 3) Urine WBC Clumps Present /hpf (None Seen) Urine Squamous Epithelial Cells Few /hpf (<5) Urine Bacteria Few /hpf (None Seen) Urine Mucus Few (None Seen) Urine Glucose Normal mg/dL (Normal) Blood Gas Specimen Type Arterial Blood Gas Sample Site Left radial Blood Gas Patient Temperature 37.0 Arterial Blood Date Drawn Arterial Blood pH 7.326 (7.350-7.450) Arterial Blood Partial Pressure CO2 34.3 mmHg (35.0-48.0) Arterial Blood Partial Pressure O2 95.0 mmHg (83.0-108.0) Arterial Blood HCO3 17.5 mmol/L (21.0-28.0) Arterial Blood Oxygen Saturation 96.9 % (94.0-98.0) Arterial Blood Base Excess -7.7 mmol/L (-2.0-3.0) Arterial Blood Oxyhemoglobin 95.9 % (94.0-98.0) Arterial Blood Carboxyhemoglobin 0.6 % (0.5-1.5) Arterial Blood Methemoglobin 0.4 % (0.0-1.5) Juan Test Yes Blood Gas Total Hemoglobin 10.10 g/dL (13.5-17.5) Blood Gas Liter Flow 2.00 Blood Gas Modality Nasal cannula FiO2 % 28.0 Test 02/20/24 05:00 02/15/24 14:15 02/15/24 05:35 02/14/24 13:50 Differential Total Cells Counted 100.0 (100) Neutrophils % (Manual) 47 (37.0-80.0) Band Neutrophils % (Manual) 1 Lymphocytes % (Manual) 29 (10.0-50.0) Monocytes % (Manual) 20 (0-12) Eosinophils % (Manual) 3 (0-7) Basophils % (Manual) 0 (0.0-2.0) Metamyelocytes % (manual) 0 Myelocytes % (Manual) 0 Promyelocytes % (Manual) 0 Blast Cells % (Manual) 0 Reactive Lymphocytes 0 Platelet Estimate Decreased Red Blood Cell Morphology Normal Urine Creatinine 175.39 mg/dL (30.0-125.0) Urine Protein/Creatinine Ratio 1.86 Urine Sodium 94 mmol/L (40-220) Urine Total Protein 326.1 mg/dL (1-14) B-Type Natriuretic Peptide 319.03 pg/mL (0-100) Parathyroid Hormone (Intact) 90.1 pg/mL (18.4-80.1) Reticulocyte Count (auto) 1.11 % (0.5-1.5) Haptoglobin 96 mg/dL (34-355) Test 02/13/24 09:15 Urine Hyaline Casts Mod /lpf (0 - 2) Urine Granular Casts Many /lpf (0) Urine Yeast (Budding) Occasional /hpf (None Other Laboratory Tests 03/04/24 06:12 Brief Hx & Hospital Course: History of Present Illness The patient was an 78-year-old male presenting to the emergency room complaints of worsening dysuria, hematuria. The patient's son who is accompanying the patient, also reports having worsening forgetfulness, generalized weakness. Patient was a significant history chronic UTIs, renal calculi, thrombocytopenia, Parkinson's disease, and history mitral valve replacement approximately 20 years ago with current anticoagulation with Coumadin. At this time, the patient denies having any fevers, chills, but does report having nausea over the past several days. Course of hospitalization: Patient had complicated course of hospitalization given deteriorating kidney function requiring hemodialysis as well as severe sepsis secondary to E coli in the urine. Consultation was placed with Urology, with the patient initially undergoing ureter stent placement for a chronic renal calculi, suspected underlying cause of patient's recurrent UTIs. Due to the patient's septic state, lithotripsy was held off. The patient's kidney function improved. The patient also had to be weaned off of his Coumadin for all procedures. The patient was taken back to the OR to undergo replacement of his ureter stent as well as lithotripsy. Postoperatively the patient was placed on bridge therapy, for the patient's history of prosthetic aortic valve. The patient developed severe hematuria, with the patient's Lovenox being stopped. Clinically the patient has improved dramatically, with the patient ambulating with physical therapy using a walker, tolerating oral intake, as well as improvement with his mentation. He will be discharged home with home health services for physical therapy. Initially the thought was to continue Lovenox at home with Coumadin, but given the patient's persistent hematuria he will be discharged with Coumadin only, as well as being discharged with his existing Wang catheter. He will stop antibiotic therapy at the time of discharge given his extended course while hospitalized. Education was also given to the patient and son for follow up with his PCP in one week, the Coumadin clinic in two days, and with Dr. Clement, urology 2-3 weeks. They are agreeable with discharge plan. All questions answered. Physical exam General: Alert and Oriented x3. No acute distress. Well-nourished. Patient with persistent hematuria Eyes: EOMI. Anicteric. HENT: Moist mucous membranes. Lungs: Clear to auscultation bilaterally. No accessory muscle use. Cardiovascular: Regular rate and rhythm. No murmur. No JVD. Abdomen: Soft, non-tender and non-distended. No palpable masses. Extremities: No edema. Non-tender. Skin: No rashes or lesions. Warm. Neurologic: No focal neurological deficits. CN II-XII grossly intact, but not individually tested. Psychiatric: Cooperative. Appropriate mood and affect. Total time spent with patient discussing and formulating plan of care: 35 minutes. This medical document was created using an electronic medical record system with [email or web address] dictation system. Although this document has been carefully reviewed, there may still be some phonetic and typographical errors. These areas are purely typographical due to imperfections of the software programs, and do not reflect any compromise in the patient's medical care. Consults/Reason for consult Urology: Complicated cystitis Nephrology: Hemodialysis, acute kidney injury Operations or Procedures 02/16/2024: Ureter stent placement 03/01/2024: Replacement of ureter stent and lithotripsy Condition at Discharge: Good Final Diagnosis/Problems List Sepsis due to complicated Cystitis Secondary Diagnosis: -complicated cystitis with E coli -renal calculi -hematuria -pancytopenia -history of prosthetic mitral valve replacement -primary hypertension -Parkinson disease -chronic kidney disease stage 3, acute kidney injury, probable ATN -chronic B-cell lymphoma Discharge Disposition: Home with Health Services Discharge Instruct/Medications Diet: Consistent carbohydrate, Cardiac 2g Na,low cholest Activity: No Restrictions, As Tolerated Follow Up/Referral: Coumadin clinic on Tuesday PCP in [address] Clement in 2 weeks Medications: Continue all home medications Coumadin 4mg po daily 36 Discharge Statement: "Patient was advised to return to the ER or call 911 if any headaches, dizziness, shortness of breath, chest pain, abdominal pain, bleeding, fevers, or worsening of medical condition. Patient was counseled about treatment plan, medications, possible side effects, patientverbalized understanding. All questions were answered to the best of my ability. This discharge took greater then 30 minutes in planning, reviewing documentation, counseling the patient, and discussing with other team members." ASSESSMENT ASSESSMENT Assessment Sepsis due to complicated Cystitis Date of Service: Mar 04, 2024 Billing Provider: SHEA GAYTAN NP Common Visit Codes: 96953-HVG/OBS DISCH DAY >30min SHEA GAYTAN NP Mar 04, 2024 12:30
[2024-03-04 13:05] VITALS: BP 118/46; PULSE 74; RESP 18; TEMP 98.1; O2SAT 97
[2024-03-04] MEDS ORDERED: WARFARIN SODIUM 2 MG TAB PO ONE (17:00)
== END 2024-03-04 13:48 | disposition home health service (06) | DRG 853 ==
LOC: ER 09:10 → OVERFLOW 12:54 → CENTRAL 22:35 → DOU IN ICU 02-20 16:00 → EAST 02-29 15:06
PROVIDERS: ADMIT Internal Medicine Geriatric Medicine; ATTEND Nurse Practitioner Acute Care
PROC: 0T778DZ Dilation of Left Ureter with Intraluminal Device, Via Natural or Artificial Opening Endoscopic (ICD-10-PCS; principal; 2024-02-16 12:00)
PROC: 05HY33Z Insertion of Infusion Device into Upper Vein, Percutaneous Approach (ICD-10-PCS; 2024-02-21)
PROC: B543ZZA Ultrasonography of Right Jugular Veins, Guidance (ICD-10-PCS; 2024-02-21)
PROC: 05HF33Z Insertion of Infusion Device into Left Cephalic Vein, Percutaneous Approach (ICD-10-PCS; 2024-02-21)
PROC: B54NZZA Ultrasonography of Left Upper Extremity Veins, Guidance (ICD-10-PCS; 2024-02-21)
PROC: 5A1D70Z Performance of Urinary Filtration, Intermittent, Less than 6 Hours Per Day (ICD-10-PCS; 2024-02-21)
PROC: 5A1D70Z Performance of Urinary Filtration, Intermittent, Less than 6 Hours Per Day (ICD-10-PCS; 2024-02-22)
PROC: 5A1D70Z Performance of Urinary Filtration, Intermittent, Less than 6 Hours Per Day (ICD-10-PCS; 2024-02-23)
PROC: 0T778DZ Dilation of Left Ureter with Intraluminal Device, Via Natural or Artificial Opening Endoscopic (ICD-10-PCS; 2024-03-01)
PROC: 0TF48ZZ Fragmentation in Left Kidney Pelvis, Via Natural or Artificial Opening Endoscopic (ICD-10-PCS; 2024-03-01)
PROC: 0TP98DZ Removal of Intraluminal Device from Ureter, Via Natural or Artificial Opening Endoscopic (ICD-10-PCS; 2024-03-01)
DX: A41.51 Sepsis due to Escherichia coli [E. coli] (principal); N17.0 Acute kidney failure with tubular necrosis; D61.818 Other pancytopenia; I13.0 Hypertensive heart and chronic kidney disease with heart failure and stage 1 through stage 4 chronic kidney disease, or unspecified chronic kidney disease; N13.6 Pyonephrosis; I50.32 Chronic diastolic (congestive) heart failure; C85.18 Unspecified B-cell lymphoma, lymph nodes of multiple sites; R65.20 Severe sepsis without septic shock; G20.A1 Parkinson's disease without dyskinesia, without mention of fluctuations; I71.40 Abdominal aortic aneurysm, without rupture, unspecified; K80.20 Calculus of gallbladder without cholecystitis without obstruction; D69.59 Other secondary thrombocytopenia; E83.39 Other disorders of phosphorus metabolism; N18.32 Chronic kidney disease, stage 3b; N28.1 Cyst of kidney, acquired; Z96.653 Presence of artificial knee joint, bilateral; Z95.2 Presence of prosthetic heart valve; E66.9 Obesity, unspecified; Z68.32 Body mass index [BMI] 32.0-32.9, adult; Z79.01 Long term (current) use of anticoagulants; Z88.1 Allergy status to other antibiotic agents; Z95.1 Presence of aortocoronary bypass graft; I25.10 Atherosclerotic heart disease of native coronary artery without angina pectoris; Z87.442 Personal history of urinary calculi; Z83.3 Family history of diabetes mellitus; Z80.3 Family history of malignant neoplasm of breast; Z80.1 Family history of malignant neoplasm of trachea, bronchus and lung; Z82.49 Family history of ischemic heart disease and other diseases of the circulatory system
CPT/HCPCS: 36415; 36600; 70450; 71045; 74018; 74176; 76000; 76775; 78707; 80048; 80053; 80069; 80074; 81001; 82140; 82306; 82570; 82805; 82962; 83010; 83735; 83880; 83970; 84100; 84156; 84300; 84443; 84478; 84550; 85007; 85025; 85027; 85045; 85610; 85730; 86850; 86880; 86885; 86900; 86901; 87040; 87081; 87086; 87088; 87186; 87340; 90935; 92610; 93306; 97110; 97116; 97163; 97530; G0378; J0131; J0696; J1642; J2003; J2250; J2405; J2704; J3430; J3480; J7042

== ENCOUNTER → 2024-04-03 | Outpatient (CLI) | payer OTHER ==
[~2024-04-03] VITALS: Ht 167.6 cm; Wt 95.3 kg
[~2024-04-03] MED LIST changes: +CARB1CAP5 PO; +FLUC200T PO; +LINE1TAB6 PO; -PREG150C PO; +QUET150T20 PO; -TAMS0.4C39 PO; -[UNRECOGNIZED DRUG - CODE] PO
[2024-04-03 14:05] LABS: Hematocrit 31.7 % (41.0-53.0); Hemoglobin 10.5 g/dL (13.5-17.5); Mean Corpuscular Hemoglobin 28.7 pg (28.0-32.0); Platelet Count (auto) 139 10^3/uL (140-450); Red Blood Cells 3.64 10^6/uL (4.5-5.90); White Blood Cell 2.8 10^3/uL (4.4-10.8)
[2024-04-03 14:20] LABS: Band Neutrophils % (manual) 0; Basophils % (manual) 0 (0.0-2.0); Blast Cells 0; Metamyelocytes % 0; Myelocytes % 0; Promyelocytes % 0; Reactive Lymphocytes 0
[2024-04-03 14:22] LABS: Urine Bacteria MOD /hpf (None Seen); Urine Blood 3+ /uL (Negative); Urine Budding Yeast MANY /hpf (None Seen); Urine Clarity Ex.Turbid (Clear); Urine Color Light-Orange (Yellow); Urine Hyaline Cast MANY /lpf (0 - 2); Urine Mucus FEW (None Seen); Urine Protein, UAD 2+ (Negative); Urine Squamous Epithelial Cell FEW /hpf (<5); Urine Urobilinogen 2 mg/dL (Negative); Urine WBC 1637 /hpf (0 - 3); Urine WBC Clumps PRESENT /hpf (None Seen); Urine pH 5.5 (5.0-9.0)
[2024-04-03 14:25] LABS: INR 3.23 (0.9-1.15); Partial Thromboplastin Time 35.9 SEC (24.5-34.5); Prothrombin Time 31.4 sec (9.3-11.8)
[2024-04-03 14:38] LABS: Albumin 4.2 g/dL (3.2-4.8); Alkaline Phosphatase 87 U/L (46-116); Anion Gap 10 (5-15); BUN/Creatinine Ratio 17.4 (10.0-20.0); Bilirubin, Total 0.7 mg/dL (0.2-1.0); Blood Urea Nitrogen 19 mg/dL (9-23); Calcium 10.2 mg/dL (8.7-10.4); Carbon Dioxide 28 mmol/L (20-31); Chloride 104 mmol/L (98-107); Potassium 3.9 mmol/L (3.5-5.1); Sodium 142 mmol/L (136-145); Total Protein 6.7 g/dL (5.7-8.2)
[2024-04-03 14:39] LABS: Alanine Aminotransferase < 9 U/L (7-40); Aspartate Aminotransferase 11 U/L (13-40); Glucose 109 mg/dL (74-106)
[2024-04-03 17:43] LABS: Eosinophils % (manual) 2 (0-7); Lymphocytes % (manual) 26 (10.0-50.0); Monocytes % (manual) 12 (0-12); Platelet Estimate Decreased
== END | disposition home or self-care (01) ==
LOC: LAB 13:45 → EDSTATUS 04-05 08:15
PROVIDERS: ATTEND Urology
DX: Z01.812 Encounter for preprocedural laboratory examination (principal); N20.0 Calculus of kidney
CPT/HCPCS: 36415; 80053; 81001; 85007; 85027; 85610; 85730; 87086

== ENCOUNTER 2024-04-11 03:16 | Inpatient (IN) | payer OTHER ==
[~2024-04-11] VITALS: Ht 182.9 cm; Wt 87.3 kg
[~2024-04-11 03:16] MED LIST changes: -ASPI-543 PO; -FLUC200T PO; -LINE1TAB6 PO
--- NOTE | 2024-04-11 03:33 | ED.PDOC ---
History of Present Illness HPI Comments 78-year-old male presents with a chief complaint of hematoma to his left forehead s/p fall at home. Patient reports that he got up from bed to use the restroom and had a mechanical fall. Patient reports that he hit his head on the carpet. Patient now has a hematoma to his left forehead. Patient is on blood t hinners. No reports of LOC. Chief Complaint: Fall Injury Time Seen by MD: 03:21 Primary Care Provider: RAFAEL Elliott Notes: Medications, Allergies Allergies: Coded Allergies: Ciprofloxacin (Verified Allergy, Mild, oral blisters and rash, 04/03/24) Sulfa Antibiotics (Verified Allergy, Unknown, 04/03/24) Home Meds Active Scripts Warfarin Sodium (Warfarin Sodium) 4 Mg Tab, 1 TAB PO DAILY, #30 Prov:REFUGIO WIN Pharmacist 05/07/20 Reported Medications Quetiapine Fumarate (Quetiapine Fumarate) 150 Mg Tab, 150 MG PO, TAB 04/03/24 Carbidopa-Levodopa (Rytary 48.75-195 mg) 1 Cap Cap, 1 CAP PO, CAP 02/14/24 Duloxetine Hcl (Cymbalta) 60 Mg Cap, 1 CAP PO DAILY, #90 CAP 3 Refills 02/14/24 Carbidopa-Levodopa (Rytary 36.25-145 mg) 1 Cap Cap, 2 CAP PO QID for PARKINSONS, CAP 07/25/23 Baclofen (Baclofen) 10 Mg Tab, 10 MG PO DAILY for BACK PAIN 06/22/22 Hydrocodone-Acetaminophen (Hydrocodone Bitartrate/AC 10-325 mg) 1 Tab Tab, 1 TAB PO DAILY for PAIN, TAB 06/22/22 Clopidogrel Bisulfate (Plavix) 75 Mg Tab, 75 MG PO DAILY for BLOOD THINNER 10/06/20 Lovastatin (Lovastatin) 40 Mg Tab, 1 TAB PO DAILY for CHOLESTEROL 05/04/20 Information Source: Patient Mode of Arrival: EMS Severity: Moderate Timing: Minutes Duration: Since onset Prehospital treatment: None Past Medical History PAST MEDICAL HISTORY: CAD, Cancer, High Lipids, HTN, Kidney Stones, OR Surgical History: CABG, PTCA Family History Family History: Family hx of DM, Family hx of heart johnnie Social History Smoker: Non-Smoker Alcohol: Denies ETOH Use Drugs: Denies Drug Use Lives In: Home Constitutional: denies: chills, diaphoresis, fatigue, fever, malaise, sweats, weakness, others EENTM: denies: blurred vision, double vision, ear bleeding, ear discharge, ear drainage, ear pain, ear ringing, eye pain, eye redness, hearing loss, mouth pain, mouth swelling, nasal discharge, nose bleeding, nose congestion, nose pain , photophobia, tearing, throat pain, throat swelling, voice changes, others Respiratory: denies: cough, hemoptysis, orthopnea, SOB at rest, shortness of breath, SOB with excertion, stridor, wheezing, others Cardiovascular: denies: chest pain, dizzy spells, diaphoresis, Dyspnea on exertion, edema, irregular heart beat, left arm pain, lightheadedness, palpitations, PND, syncope, others Gastrointestinal: denies: abdomen distended, abdominal pain, blood streaked bowels, constipated, diarrhea, dysphagia, difficulty swallowing, hematemesis, melena, nausea, poor appetite, poor fluid intake, rectal bleeding, rectal pain, vomiting, others Genitourinary: denies: burning, dysuria, flank pain, frequency, hematuria, incontinence, penile discharge, penile sore, pain, testicle pain, testicle swelling, urgency, others Neurological: denies: dizziness, fainting, headache, left sided numbness, left sided weakness, numbness, paresthesia, pre-existing deficit, right sided numbness, right sided weakness, seizure, speech problems, tingling, tremors, weakness, others Musculoskeletal: denies: back pain, gout, joint pain, joint swelling, muscle pain, muscle stiffness, neck pain, others Integumetry: reports: bruises (LEFT FOREHEAD HEMATOMA); denies: change in color, change in hair/nails, dryness, laceration, lesions, lumps, rash, wounds, others Allergic/Immunocompromised: denies: Difficulty Healing, Frequent Infections, Hives, Itching, others Hematologic/Lymphatic: denies: anemia, blood clots, easy bleeding, easy bruising, swollen glands, others Endocrine: denies: excessive hunger, excessive sweating, excessive thirst, excessive urination, flushing, intolerance to cold, intolerance to heat, unexplained weight gain, unexplained weight loss, others Psychiatric: denies: anxiety, bipolar disorder, depression, hopeless, panic disorder, schizophrenia, sleepless, suicidal, others All Other Systems: Reviewed and Negative Physical Exam General Appearance: No Apparent Distress, Normal HEENT: Normal ENT Inspection, Pharynx Normal, TMs Normal Neck: Full Range of Motion, Non-Tender, Normal, Normal Inspection Respiratory: Chest Non-Tender, Lungs Clear, No Accessory Muscle Use, No Respiratory Distress, Normal Breath Sounds Cardiovascular: No Edema, No JVD, No Murmur, No Gallop, Normal Peripheral Pulses, Regular Rate/Rhythm Breast Exam: Deferred Gastrointestinal: No Organomegaly, Non Tender, No Pulsatile Mass, Normal Bowel Sounds, Soft Genitalia: Deferred Pelvic: Deferred Rectal: Deferred Extremities: No calf tenderness, Normal capillary refill, Normal inspection, Normal range of motion, Non-tender, No pedal edema Musculoskeletal : Apperance: Normal Neurologic: Alert, signal helper II-XII nml as Tested, No Motor Deficits, Normal Affect, Normal Mood, No Sensory Deficits Cerebellar Function: Normal Reflexes: Normal Skin: Dry, Normal Color, Warm Lymphatic: No Adenopathy Was a procedure done? Was a procedure done?: No Differential Dx Considerations may include: CVA, ACS, electrolyte abnormality X-Ray, Labs, Meds, VS Vital Signs Date Time Temp Pulse Resp B/P (MAP) Pulse Ox O2 Delivery O2 Flow Rate FiO2 04/11/24 03:19 98.9 84 18 128/66 (86) 94 04/11/24 03:18 66 Time of 1ST Reevaluation: 03:51 Reevaluation 1ST: Unchanged Patient Education/Counseling: Diagnosis, Treatment, Prognosis Family Education/Counseling: No Family Present Departure 1 Departure Time of Disposition: 05:51 (Patient presented with syncope today and should be admitted. Data: 1. I ordered and reviewed the result of at least 3 labs including a CBC, BMP, and troponin. 2. I independently interpreted the following tests: EKG which shows a sinus arrhythmia and a chest x-ray which shows benign c hest and a CT head which shows benign brain.Risk:This patient has a high risk of morbidity due to further diagnostic testing or treatment and may suffer from an acute cardiac, neurologic, or infectious disorder. Rationale: Patient should be admitted to the hospital for further management.) Impression: Primary Impression: Syncope and collapse Additional Impressions: Parkinsons Qualified Codes: G20.A1 - Parkinson's disease without dyskinesia, without mention of fluctuations Generalized weakness Disposition: ADMITTED INPATIENT Admit to: Med Surg Condition: Serious Critical Care Note Critical Care Time?: No Stability Stability form required: No Heart Score Heart Score: Heart Score Response (Comments) Value History N/A 0 EKG N/A 0 Age N/A 0 Risk Factors N/A 0 Troponin N/A 0 Total 0 I personally scribed for HEATHER LÓPEZ MD ([email or web address]) on 04/11/24 at 03:33. Electronically submitted by Colton Gonzalez ([email or web address]). HEATHER LÓPEZ MD Apr 11, 2024 03:33
[2024-04-11 03:45] VITALS: PULSE 69; RESP 15; O2SAT 95
--- NOTE | 2024-04-11 05:20 | DVH ---
Examination: CS2 CLINICAL INDICATION: ; fall DIREAS; Reason for Exam: Stretcher; Stretcher; Modes of Transportation DITRANS; How is patient transported? COMPARISON: None. CONTRAST USED: None. TECHNIQUE: Axial sections through the cervical spine with sagittal and coronal reformats are obtaine d. The examination was performed obtaining 2 mm slices in the axial plane. Sagittal and 3D reconstruc tions were also obtained. Technique for this CT scan was done using principles of ALARA (As Low as Re asonably Achievable). Multiplanar reconstructions were obtained. FINDINGS: Limited evaluation due to beam hardening artifacts in the spinal canal at C5, C6, C7 and T 1 levels. The alignment of the cervical spine is maintained. Degenerative osteophytes noted in the cervical vertebrae. The posterior elements are unremarkable. There is no fracture or subluxation. No destructive bony lesion is noted. The pre and paravertebral soft tissues are unremarkable. Atlantoaxial joint shows degenerative changes. Partly visualized hyperdensity giving adjacent streak artifacts noted in the subcutaneous plane of an terior chest wall anterior to the manubrium. Advised clinical correlation. C2-C3 level: Disc height is within normal limits with posterocentral disc bulge (thickness up to ap proximately 1.7 mm) indenting the anterior thecal sac. There is no significant central canal or neural foraminal narrowing. The facet joints are within normal limits. C3-C4 level: Disc height is within normal limits with posterior disc osteophyte complex (thickness u p to approximately 2.9 mm) indenting the anterior thecal sac. There is no significant central canal narrowing. Vertebral osteophytes along with bilateral facetal joint arthropathy causing mild bilateral neural fo raminal narrowing. C4-C5 level: Disc height is within normal limits with posterocentral disc bulge (thickness up to ap proximately 2.2 mm) indenting the anterior thecal sac. There is no significant central canal narrowing. Vertebral osteophytes along with bilateral facetal joint arthropathy causing mild bilateral neural fo raminal narrowing. C5-C6 level: Disc height is reduced. The spinal canal cannot be commented upon due to beam hardenin g artifacts within. Vertebral osteophytes along with bilateral facetal joint arthropathy causing mild -to-moderate bilateral neural foraminal narrowing. C6-C7 level: Disc height is reduced. The spinal canal cannot be commented upon due to beam hardeni ng artifacts within. The facet joints are within normal limits. C7-T1 level: Disc height is within normal limits. The spinal canal cannot be commented upon due to b eam hardening artifacts within. The facet joints are within normal limits. Note that detection of disc herniations is limited with CT, for which an MRI may be obtained if clini wale indicated. IMPRESSION: 1. Limited evaluation due to beam hardening artifacts in the spinal canal at C5, C6, C7 and T1 level s. 2. No obvious fracture or dislocation in the cervical spine. 3. Oasw-ah-wckuatxt cervical spondylosis as described. 4. Chronic and / or ancillary findings as described above. 5. Advised further evaluation with MRI cervical spine without contrast if clinically indicated. Electronically Signed 04/11/2024 05:19 Vanessa Garcia
--- NOTE | 2024-04-11 05:20 | DVH ---
Examination: HWOCT CLINICAL INDICATION: fall on thinners COMPARISON: None. CONTRAST USED: None. TECHNIQUE: The examination was performed obtaining 5 mm slices without contrast. CT scan was done ac cording to ALARA (As Low as Reasonably Achievable). Multiplanar reconstructions were obtained. FINDINGS: SUPRATENTORIAL BRAIN: Cerebral Hemispheres: There is no midline shift or mass effect, intra or extra-axial fluid collectio ns or hemorrhage. Prominent sulcal - gyral pattern and cisternal spaces in both cerebral hemispheres suggestive of cere bral atrophy, likely age-related. Dural calcifications noted. Periventricular White Matter/Basal Ganglia: Diffuse hypodensities noted in periventricular deep whit e matter of bilateral cerebral hemispheres, suggestive of chronic periventricular ischemic changes. No abnormal areas of altered attenuation within the basal ganglia. POSTERIOR FOSSA: The brainstem and cerebellum are unremarkable. VENTRICULAR SYSTEM: The ventricular system is normal in size. There is no evidence of hydrocephalus or transependymal flow of cerebrospinal fluid. SKULL BASE AND PARASELLAR REGION: The skull base is normal with no parasellar masses or abnormalitie s identified. CALVARIUM AND SCALP REGION: Scalp hematoma with maximum thickness up to 7 mm over the left frontal r egion. PARANASAL SINUSES: Mucosal thickening and / or oeso-mi-diyuuwlk material noted in bilateral sphenoi d sinuses and few bilateral patellar cells. No significant inflammatory changes are identified in the visualized paranasal sinuses. IMPRESSION: 1. No obvious intracranial injury or skull vault fracture. 2. Scalp hematoma over the left frontal region. 3. Chronic periventricular ischemic changes. 4. Bilateral cerebral atrophy, likely age-related. 5. Chronic and / or ancillary findings as described above. 6. Advised further evaluation with MRI brain without contrast if clinically indicated. Electronically Signed 04/11/2024 05:19 Vanessa Garcia
--- NOTE | 2024-04-11 05:25 | DVH ---
CLINICAL INDICATION: Trauma, pain fall TECHNIQUE: XY R FOOT 3 VIEW XRAY Comparison: None FINDINGS/IMPRESSION: : Limited examination secondary to artifact from overlying bandages/gauze. Grossly, no acute fracture or dislocation. Suggestion of pes planus.
--- NOTE | 2024-04-11 05:26 | DVH ---
CHEST RADIOGRAPH Indication: fall Technique: Single frontal view of the chest was obtained Comparison: XY CHEST XRAY 1 VIEW on DOS: 02/21/24, XY CHEST XRAY 1 VIEW on DOS: 02/20/24, XY CHEST PORT ABLE on DOS: 02/19/24, XY CHEST PORTABLE on DOS: 02/15/24, XY CHEST PORTABLE on DOS: 09/17/23 FINDINGS: Lines and Tubes: None Lungs: No focal consolidation. Pleura: No effusion. No pneumothorax. Cardiomediastinal contours: Unremarkable Bones: Median sternotomy IMPRESSION: No acute cardiopulmonary disease.
--- NOTE | 2024-04-11 05:26 | DVH ---
CLINICAL INDICATION: fall, trauma, pain TECHNIQUE: XY PELVIS AP Comparison: None FINDINGS/IMPRESSION: : There is no evidence of acute fracture or dislocation. Soft tissues are unremarkable. Left internal ureteral stent, partially imaged. Moderate degenerative changes of bilateral hips. Degenerative changes of the visualized spine.
--- NOTE | 2024-04-11 06:50 | ECG ---
[facility] Test Date: 2024-04-11 Test Time: 03:18:28 Pat Name: QUENTIN SMITH Department: er Room: 0279T Gender: M Field Technician: : [id number] Requested By: EMERGENCY EMERGENCY Order Number: [id number] Reading MD: Dustin Goodwin Measurements Intervals Procious Rate: 66 P: 0 [place]: 0 QRS: 17 QRSD: 120 T: 0 QT: 492 QTc: 516 Interpretive Statements Atrial fibrillation Nonspecific intraventricular conduction delay Borderline repolarization abnormality Baseline wander in lead(s) II,III,aVL,aVF Electronically Signed On 04-12-2024 14:18:04 PST by Dustin Goodwin Please click the below link to view image of tracing.
[2024-04-11 07:30] VITALS: PULSE 68; RESP 22; O2SAT 94
[2024-04-11 07:33] LABS: Hemoglobin 9.3 g/dL (13.5-17.5); Mean Corpuscular Volume 86.3 fL (80.0-100.0)
[2024-04-11 07:35] LABS: Hematocrit 27.3 % (41.0-53.0); Mean Corpuscular Hemoglobin 29.5 pg (28.0-32.0); Mean Corpuscular Hgb Conc. 34.1 g/dL (32.0-36.0); Platelet Count (auto) 98 10^3/uL (140-450); Red Blood Cells 3.17 10^6/uL (4.5-5.90); Red Cell Distribution Width 16.1 % (11.8-14.3)
[2024-04-11 07:38] LABS: White Blood Cell 1.5 10^3/uL (4.4-10.8)
[2024-04-11 07:39] LABS: Chloride 103 mmol/L (98-107); Sodium 139 mmol/L (136-145)
[2024-04-11 07:40] LABS: Anion Gap 10 (5-15); Carbon Dioxide 26 mmol/L (20-31)
[2024-04-11 07:41] LABS: Basophils % (manual) 0 (0.0-2.0); Blast Cells 0; Eosinophils % (manual) 0 (0-7); Metamyelocytes % 0; Myelocytes % 0; Promyelocytes % 0; Reactive Lymphocytes 0
[2024-04-11 07:43] LABS: Potassium 3.3 mmol/L (3.5-5.1)
[2024-04-11 07:45] LABS: BUN/Creatinine Ratio 23.7 (10.0-20.0); Blood Urea Nitrogen 23 mg/dL (9-23)
[2024-04-11 07:56] LABS: Glucose 110 mg/dL (74-106)
[2024-04-11] MEDS ORDERED: NITROGLYCERIN 0.4 MG SL TAB SL PRN ×2 (08:15→08:45)
--- NOTE | 2024-04-11 08:37 | DVHHP2 ---
History of Present Illness History of Present Illness 78 yr old male pmh chronic UTIs, renal calculi, thrombocytopenia, Parkinson's disease, and history mitral valve replacement approximately 20 years ago with current anticoagulation with Coumadin ckd stage 3 hld, htn, mi, recent admission for cystitis with ecoli bacteria from kidney stone had lithropys and stent placement, chronic osullivan placement seen by dr gregory marshall, surgical history cabg ptca cc pt as found to have a mechanical fall at home, lives iwth family while gettting up to go to bathroom, per nurse pt family states pt have been falling frequently, pt has hx of parkison disease could be reason for fall but when he fell this time he hit his head and had hematoma to left head, along with left forearm abrasion and right great toe injury, pt in bed only alert x2, unsure baseline, when evaluating pt labs and imaging pt found to have ebc 1.5, hemoglobin 9.3, plt count 98 k3.3, 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, pt had imaging completed ct brain negative for bleed scalp hematoma, c spine no fracture, cxr normal, ct abd pelvis shows left uretheral stent and djd hip xry of right foot no fx but flat feet with this findings will admit and ask for PT evaluation and sw to assist with d/c planning Past Medical History see hpi above Past Surgical History see hpi above Family History Unable to assess family history Past Social History Unable to assess social history Review of Systems Constitutional: No: Fever, Chills, Sweats, Weakness, Malaise, Other Eyes: No: Pain, Vision change, Conjunctivae inflammation, Eyelid inflammation, Other, Redness ENT: No: Ear pain, Ear discharge, Nose pain, Nose discharge, Nose congestion, Mouth pain, Mouth swelling, Throat pain, Throat swelling, Other Respiratory: No: Cough, Dry, Shortness of breath, SOB with excertion, Wheezing, Hemoptysis, Pleuritic Pain, Sputum, Wheezing, Other Cardiovascular: No: Chest Pain, Palpitations, Orthopnea, Paroxysmal Noc. Dyspnea, Edema, Lt Headedness, Other Gastrointestinal: No: Nausea, Vomiting, Abdominal Pain, Diarrhea, Constipation, Melena, Hematochezia, Other Genitourinary: No Dysuria, No Frequency, No Incontinence, No Hematuria, No Retention, No Other Musculoskeletal: arm pain (left arm wound from fall ), foot pain (right foot wound from fall ); No: other, neck pain, shoulder pain, back pain, hand pain, leg pain Skin: No: Rash, Lesions, Jaundice, Bruising, Other Neurological: Other (parkision disease ) Allergies: Coded Allergies: Ciprofloxacin (Verified Allergy, Mild, oral blisters and rash, 04/03/24) Sulfa Antibiotics (Verified Allergy, Unknown, 04/03/24) Medications Current Medications Medications Dose Ordered Sig/Desmond Route Start Time Stop Time Status Last Admin Dose Admin Nitroglycerin 0.4 mg Q5MINP PRN SL 04/11/24 08:15 UNV Exam Vital Signs Vital Signs Date Time Temp Pulse Resp B/P (MAP) Pulse Ox O2 Delivery O2 Flow Rate FiO2 04/11/24 07:30 98.1 68 22 136/59 (84) 94 98.1 04/11/24 07:30 Room Air* 0 21 General Appearance: Alert, Cooperative, No acute distress HEENT: Other (old blood seen in mouth, left fore head hematoma ) Respiratory: Clear to auscultation, Normal air movement Cardiovascular: Regular rate, Normal S1, Normal S2, No murmurs Abdominal: Normal bowel sounds, Soft, No hepatospenomegaly, No masses, Other (pt with old dirty osullivan was replaced by nurse) Extremities: No clubbing, No cyanosis, No edema, Normal pulses, Other (right great toe injury ) Skin: No rashes, No breakdown, No significant lesion Neuro: Other (pt with neuro non focal have parkison type movement to bue) Psych/Mental Status: Other Labs/Xrays I reviewed labs, imaging CT scan abdomen pelvis, EKG and all diagnostic studies on this patient from ED records and the medical chart CT scan of the brain unremarkable shows scalp hematoma CT C-spine no acute fracture Chest x-ray unremarkable CT scan abdomen pelvis shows left ureteral stent and DJD of the hips X-ray of the foot right no fracture but flat feet Labs Test 04/11/24 07:08 Range/Units White Blood Count 1.5 *L 4.4-10.8 10^3/uL Red Blood Count 3.17 L 4.5-5.90 10^6/uL Hemoglobin 9.3 L 13.5-17.5 g/dL Hematocrit 27.3 L 41.0-53.0 % Mean Corpuscular Volume 86.3 80.0-100.0 fL Mean Corpuscular Hemoglobin 29.5 28.0-32.0 pg Mean Corpuscular Hemoglobin Concent 34.1 32.0-36.0 g/dL Red Cell Distribution Width 16.1 H 11.8-14.3 % Platelet Count 98 L 140-450 10^3/uL Mean Platelet Volume 8.0 6.9-10.8 fL Neutrophils (%) (Auto) 37.0-80.0 % Lymphocytes (%) (Auto) 10.0-50.0 % Monocytes (%) (Auto) 0.0-12.0 % Basophils (%) (Auto) 0.0-2.0 % Neutrophils # (Auto) 1.6-8.6 10 ^3/uL Lymphocytes # (Auto) 0.4-5.4 10 ^3/uL Monocytes # (Auto) 0-1.3 10 ^3/uL Sodium Level 139 136-145 mmol/L Potassium Level 3.3 L 3.5-5.1 mmol/L Chloride Level 103 98-107 mmol/L Carbon Dioxide Level 26 20-31 mmol/L Anion Gap 10 5-15 Blood Urea Nitrogen 23 9-23 mg/dL Creatinine 0.97 0.700-1.30 mg/dL Glomerular Filtration Rate Calc 79 >90 mL/min BUN/Creatinine Ratio 23.7 H 10.0-20.0 Serum Glucose 110 H 74-106 mg/dL Calcium Level 9.0 8.7-10.4 mg/dL Troponin I High Sensitivity 24 </=54 ng/L Assessment/Plan Assessment/Plan acute mechanical fall on blood thinner Coumadin ct scan brain negative hold coumadin for now fall precautions will order PT consult fu results for discharge planning acute left frontal hematoma from fall CT scan brain normal monitor for neuro changes monitor for changes of confusion acute left arm abrasion and right great toe wound ordered wound care consult fu recs xray of foot no fx acute pancytopenia likely from hx of b cell carcinoma can consider hem onc consult no recent chemo for now will treat ppx with ceftriaxone to cover urine infection ppx acute lithotripsy one month ago with stent placement by urology dr. Gregory dubose osullivan today ordered ua fu results strict i/o's routine urology consult fu recs since pt missed appt last week acute mild hypokalemia ordered mag and phos fu results replete k chronic problems cad cancer b cell lymphoma hld htn kidney stones TN chronic osullivan CABG PTCA ckd stage 3 parkisons disease fen/ppx npo for now until more alert ivf for now hold blood thinners in setting of hematoma from fall fall risk protonix for now scd PT consult fu recs plan admit to tele monitor for mental status changes Plan discussed with: Other (pt nurse) My Orders Orders - LEANDRO LEAHY DNP Procedure Category Date Status Time Admit ADMIT 04/11/24 Transmitted 08:12 Nitroglycerin PHA 04/11/24 Transmitted Sublingual (Ntrostat 08:15 Stat Ekg For Chest ARACELY 04/11/24 Transmitted Pain 08:12 Notify Md Of Changes ARACELY 04/11/24 Transmitted From Base 08:12 Strings Teacher For ARACELY 04/11/24 Transmitted 24 Hours 08:12 Emergency Dysrhythmia ARACELY 04/11/24 Transmitted Protocol 08:12 Rhythm Strips Once ARACELY 04/11/24 Transmitted Every Shift 08:12 Oxygen By Nasal RT 04/11/24 Transmitted Cannula 08:12 Date of Service: Apr 11, 2024 Billing Provider: LEANDRO LEAHY DNP Common Visit Codes: [id number] INP/OBS CARE (HIGH) LEANDRO LEAHY DNP Apr 11, 2024 08:37
[2024-04-11] MEDS ORDERED: DOCUSATE SOD 100 MG CAP PO PRN (08:45)
[2024-04-11] MEDS ORDERED: ONDANSETRON HCL 4 MG/2 ML VIAL IV PRN (08:45)
[2024-04-11] MEDS: SODIUM CHLORIDE 0.9% 1,000 ML IV SCH (09:04)
[2024-04-11 09:10] LABS: Band Neutrophils % (manual) 8; Lymphocytes % (manual) 33 (10.0-50.0); Monocytes % (manual) 11 (0-12)
[2024-04-11 09:11] LABS: Platelet Estimate Decreased
[2024-04-11 09:17] LABS: Urine Bacteria None Seen /hpf (None Seen)
[2024-04-11 09:29] LABS: Urine Blood 3+ /uL (Negative); Urine Clarity Turbid (Clear); Urine Color Light-Orange (Yellow); Urine Protein, UAD 2+ (Negative); Urine Specific Gravity 1.015 (1.001-1.035); Urine Squamous Epithelial Cell FEW /hpf (<5); Urine Urobilinogen Normal (Negative); Urine WBC 2 /hpf (0 - 3)
[2024-04-11] MEDS ORDERED: ATORVASTATIN 20 MG TAB PO SCH (10:00)
[2024-04-11] MEDS: DULoxetine HCL 30 MG CAP PO SCH (10:05)
[2024-04-11] MEDS: CARBIDOPA LEVODOPA PO SCH (11:51)
[2024-04-11] MEDS: cefTRIAXone 1GM/50ML D5W 50 ML IV ONE (12:12)
[2024-04-11 14:05] LABS: Hematocrit 28.4 % (41.0-53.0); Hemoglobin 9.6 g/dL (13.5-17.5); Mean Corpuscular Hemoglobin 28.9 pg (28.0-32.0); Mean Corpuscular Hgb Conc. 33.9 g/dL (32.0-36.0); Mean Corpuscular Volume 85.1 fL (80.0-100.0); Platelet Count (auto) 107 10^3/uL (140-450); Red Blood Cells 3.34 10^6/uL (4.5-5.90); Red Cell Distribution Width 16.2 % (11.8-14.3)
[2024-04-11 14:09] LABS: White Blood Cell 1.6 10^3/uL (4.4-10.8)
[2024-04-11 14:10] LABS: Basophils % (manual) 0 (0.0-2.0); Blast Cells 0; Eosinophils % (manual) 0 (0-7); Metamyelocytes % 0; Myelocytes % 0; Promyelocytes % 0; Reactive Lymphocytes 0
[2024-04-11 14:14] LABS: Albumin 3.8 g/dL (3.2-4.8); Alkaline Phosphatase 81 U/L (46-116); Anion Gap 9 (5-15); BUN/Creatinine Ratio 18.2 (10.0-20.0); Blood Urea Nitrogen 20 mg/dL (9-23); Calcium 9.6 mg/dL (8.7-10.4); Carbon Dioxide 27 mmol/L (20-31); Chloride 103 mmol/L (98-107); Magnesium 1.8 mg/dL (1.6-2.6); Sodium 139 mmol/L (136-145)
[2024-04-11 14:15] LABS: Bilirubin, Total 0.8 mg/dL (0.2-1.0); Total Protein 6.2 g/dL (5.7-8.2)
[2024-04-11 14:16] LABS: Alanine Aminotransferase < 9 U/L (7-40); Aspartate Aminotransferase < 8 U/L (13-40); Glucose 117 mg/dL (74-106); Potassium 3.3 mmol/L (3.5-5.1)
[2024-04-11 15:03] LABS: Band Neutrophils % (manual) 5; Lymphocytes % (manual) 38 (10.0-50.0); Monocytes % (manual) 13 (0-12)
[2024-04-11 15:04] LABS: Platelet Estimate Decreased
[2024-04-11] MEDS: ACETAMINOPHEN 325 MG TAB PO PRN (16:45)
[2024-04-11 19:22] VITALS: PULSE 91; RESP 27; O2SAT 92
[2024-04-11 19:48] VITALS: BP 118/63; PULSE 110; RESP 16; TEMP 98.7; O2SAT 93
[2024-04-11 20:18] VITALS: BP 118/63; PULSE 100; PULSE 83; RESP 18; TEMP 98; O2SAT 93; O2SAT 97
[2024-04-11 21:00] VITALS: BP 138/74; PULSE 90; RESP 16; TEMP 98.8; O2SAT 94
--- NOTE | 2024-04-11 21:04 | DVHPNRES ---
Progress Note Date Seen: Apr 11, 2024 Resident Creating Document: EFRAIN CARTWRIGHT RESIDENT Medical Necessity Reason Pt with a Central, PICC or Fol: No Subjective Review of Systems Seen and examined at bedside. Patient is currently alert and oriented x2, mildly altered. currently mentioning of no symptoms. Patient is a poor historian. Objective vital signs Vital Sign Date Time Temp Pulse Resp B/P (MAP) Pulse Ox O2 Delivery O2 Flow Rate FiO2 04/11/24 20:18 83 18 97 Room Air* 0 21 04/11/24 20:18 98.0 118/63 (81) 98.0 medications Current Medications Medications Dose Ordered Sig/Desmond Route Start Time Stop Time Status Last Admin Dose Admin Patient Own Medication 2 cap QID PO 04/11/24 12:00 Duloxetine HCl 60 mg DAILY PO 04/11/24 10:00 04/11/24 10:05 60 MG Sodium Chloride 1,000 ml @ 70 mls/hr [id number] IV 04/11/24 08:45 04/11/24 09:04 70 MLS/HR Ondansetron HCl 4 mg Q4HP PRN IV 04/11/24 08:45 Docusate Sodium 100 mg BIDPRN PRN PO 04/11/24 08:45 Morphine Sulfate 2 mg Q4HPRN PRN IV 04/11/24 08:45 Nitroglycerin 0.4 mg Q5MINP PRN SL 04/11/24 08:45 Atorvastatin Calcium 20 mg HS PO 04/11/24 22:00 Quetiapine Fumarate 25 mg HS PO 04/11/24 22:00 Ceftriaxone Sodium 50 ml @ 100 mls/hr DAILY@09 IV 04/12/24 09:00 Acetaminophen 650 mg Q6HP PRN PO 04/11/24 16:45 04/11/24 16:45 650 MG Examination Examination General Appearance: Facial muscles resting tremor, pill rolling bilateral hands, Alert, Oriented X3, Cooperative, No acute distress HEENT: Dried blood in the angle of the mouth and over the mustache, left frontal scalp contusion Respiratory: Clear to auscultation, Normal air movement Cardiovascular: Regular rate, Normal S1, Normal S2 Abdominal: Normal bowel sounds Extremities: Left elbow dressing, right great toe dressing Skin: No rashes, No breakdown laboratory and microbiology Laboratory Tests 04/11/24 13:43 Test 04/11/24 13:43 Range/Units Serum Glucose 117 H 74-106 mg/dL Labs and/or images reviewed: Labs reviewed by me, Image(s) reviewed by me Problem List/Assessment/Plan Problem List/Assessment/Plan # mechanical fall -head CT, right foot x-ray, cervical spine CT, chest x-ray, pelvic x-ray done, no acute fracture -pain meds -coumadin was held -fall precautions -PT #Scalp hematoma over the left frontal region -seen on head CT #Metabolic encephalopathy likely due to ?sepsis ?UTI, termite control servicer osullivan catheter -IV fluids -IV ceftriaxone #Anemia normocytic -monitor CBC #Thrombocytopenia, likely chronic -monitor CBC #Hypokalemia -replaced #History of nephrolithiasis #Mitral valve replacement #CKD #Hyperlipidemia #Hypertension Code status discussed with the patient, who comprehended and understood about code status, and discussed with son over the phone, greatest 21 minutes, DNR Case discussed with Dr. Reis Plan discussed with: Patient, Other Date of Service: Apr 11, 2024 Billing Provider: ESE REIS MD Common Visit Codes: [id number] INP/OBS CARE(HIGH) EFRAIN CARTWRIGHT RESIDENT Apr 11, 2024 21:04 ESE REIS MD Apr 12, 2024 08:33
[2024-04-11] MEDS: QUEtiapine FUMARATE 25 MG TAB PO SCH (21:41)
[2024-04-11] MEDS: ATORVASTATIN 20 MG TAB PO SCH (21:41)
[2024-04-12] VITALS (8 sets, daily range): BP systolic 120–128; BP diastolic 63–71; PULSE 60–79; RESP 16–24; TEMP 97.9–98.7; O2SAT 94–95
[2024-04-12] MEDS: POTASSIUM EFFERVESENT TAB 25 MEQ PO ONE (05:15)
[2024-04-12 07:06] LABS: Hemoglobin 8.6 g/dL (13.5-17.5)
[2024-04-12 07:09] LABS: Hematocrit 24.7 % (41.0-53.0); Mean Corpuscular Hemoglobin 29.1 pg (28.0-32.0); Mean Corpuscular Hgb Conc. 34.7 g/dL (32.0-36.0); Mean Corpuscular Volume 83.9 fL (80.0-100.0); Platelet Count (auto) 94 10^3/uL (140-450); Red Blood Cells 2.94 10^6/uL (4.5-5.90); Red Cell Distribution Width 15.9 % (11.8-14.3)
[2024-04-12 07:35] LABS: White Blood Cell 1.2 10^3/uL (4.4-10.8)
[2024-04-12 07:36] LABS: Basophils % (manual) 0 (0.0-2.0); Blast Cells 0; Eosinophils % (manual) 0 (0-7); Metamyelocytes % 0; Myelocytes % 0; Promyelocytes % 0; Reactive Lymphocytes 0
[2024-04-12 07:53] LABS: Alkaline Phosphatase 72 U/L (46-116); Anion Gap 8 (5-15); BUN/Creatinine Ratio 25.2 (10.0-20.0); Calcium 9.2 mg/dL (8.7-10.4); Carbon Dioxide 26 mmol/L (20-31); Chloride 106 mmol/L (98-107); Magnesium 1.9 mg/dL (1.6-2.6); Sodium 140 mmol/L (136-145)
[2024-04-12 07:55] LABS: Albumin 3.4 g/dL (3.2-4.8); Bilirubin, Total 0.6 mg/dL (0.2-1.0)
[2024-04-12 08:06] LABS: Alanine Aminotransferase < 9 U/L (7-40); Aspartate Aminotransferase 9 U/L (13-40); Blood Urea Nitrogen 26 mg/dL (9-23); Glucose 124 mg/dL (74-106); Potassium 3.5 mmol/L (3.5-5.1); Total Protein 5.5 g/dL (5.7-8.2)
--- NOTE | 2024-04-12 08:23 | DVH ---
CLINICAL INFORMATION: 78 years old, Male; sepsis. TECHNIQUE: Single AP portable chest radiograph was obtained. COMPARISON: XY CHEST PORTABLE on DOS: 04/11/24, XY CHEST XRAY 1 VIEW on DOS: 02/21/24, XY CHEST XRAY 1 VIEW on DOS: 02/20/24 FINDINGS: Low lung volumes with mild bibasilar atelectasis. No focal consolidation visualized. Similar-appearin g postsurgical changes. Mildly prominent pulmonary vasculature. No pneumothorax. No other significan t interval change. IMPRESSION: 1. Mild prominence of the pulmonary vasculature, May suggest a mild degree of pulmonary vascular arminda estion in the appropriate clinical setting. 2. No focal consolidation visualized. Mild bibasilar atelectasis.
[2024-04-12] MEDS ORDERED: cefTRIAXone 1GM/50ML D5W 50 ML IV SCH (09:00)
[2024-04-12 09:30] LABS: Band Neutrophils % (manual) 3; Lymphocytes % (manual) 43 (10.0-50.0); Monocytes % (manual) 23 (0-12); Platelet Estimate Decreased
[2024-04-12] MEDS: MEROPENEM 1GM IVPB 50 ML IV ONE (10:04)
[2024-04-12] MEDS: SODIUM CHLORIDE 0.9% 500 ML IV ONE (10:05)
[2024-04-12] MEDS: MEROPENEM 1GM IVPB 50 ML IV SCH (14:50)
--- NOTE | 2024-04-12 15:36 | DVHPNRES ---
Progress Note Date Seen: Apr 12, 2024 Resident Creating Document: EFRAIN CARTWRIGHT RESIDENT Medical Necessity Reason Pt with a Central, PICC or Fol: No Subjective Review of Systems pt seen and examined at bedside. pt is more alert today, oriented X4. not mentioning of any other complaints. Objective vital signs Vital Sign Date Time Temp Pulse Resp B/P (MAP) Pulse Ox O2 Delivery O2 Flow Rate FiO2 04/12/24 10:12 98.3 63 17 120/69 (86) 94 98.3 04/12/24 08:00 Room Air* 0 21 Total Intake and Output 04/11/24 04/11/24 04/12/24 15:00 23:00 07:00 Intake Total 260 ml 70 ml Output Total 650 ml Balance 260 ml 70 ml -650 ml medications Current Medications Medications Dose Ordered Sig/Desmond Route Start Time Stop Time Status Last Admin Dose Admin Duloxetine HCl 60 mg DAILY PO 04/11/24 10:00 04/12/24 10:04 60 MG Ondansetron HCl 4 mg Q4HP PRN IV 04/11/24 08:45 Docusate Sodium 100 mg BIDPRN PRN PO 04/11/24 08:45 Morphine Sulfate 2 mg Q4HPRN PRN IV 04/11/24 08:45 Nitroglycerin 0.4 mg Q5MINP PRN SL 04/11/24 08:45 Atorvastatin Calcium 20 mg HS PO 04/11/24 22:00 04/11/24 21:41 20 MG Quetiapine Fumarate 25 mg HS PO 04/11/24 22:00 04/11/24 21:41 25 MG Acetaminophen 650 mg Q6HP PRN PO 04/11/24 16:45 04/11/24 16:45 650 MG Meropenem 50 ml @ 17 mls/hr Q8HR IV 04/12/24 14:00 04/12/24 14:50 17 MLS/HR Patient Own Medication 2 cap QID PO 04/12/24 18:00 Examination Examination General Appearance: Facial muscles resting tremor, pill rolling bilateral hands, Alert, Oriented X3, Cooperative, No acute distress HEENT: Dried blood in the angle of the mouth and over the mustache, left frontal scalp contusion Respiratory: Clear to auscultation, Normal air movement Cardiovascular: Regular rate, Normal S1, Normal S2 Abdominal: Normal bowel sounds Extremities: Left elbow dressing, right great toe dressing Skin: No rashes, No breakdown laboratory and microbiology Laboratory Tests 04/12/24 06:23 Test 04/12/24 06:23 Range/Units Serum Glucose 124 H 74-106 mg/dL Labs and/or images reviewed: Labs reviewed by me, Image(s) reviewed by me Problem List/Assessment/Plan Problem List/Assessment/Plan # mechanical fall -head CT, right foot x-ray, cervical spine CT, chest x-ray, pelvic x-ray done, no acute fracture -pain meds -coumadin was held -fall precautions -PT #Scalp hematoma over the left frontal region -seen on head CT #Metabolic encephalopathy likely due to ?sepsis ?UTI, snf osullivan catheter -IV fluids -IV meropenam -change osullivan -urine culture #Anemia normocytic -monitor CBC #Thrombocytopenia, likely chronic -monitor CBC #Hypokalemia -replaced #History of nephrolithiasis #Mitral valve replacement #CKD #Hyperlipidemia #Hypertension Code status discussed with the patient, who comprehended and understood about code status, and discussed with son over the phone, greatest 21 minutes, DNR Case discussed with Dr. Mar Plan discussed with: Patient, Other My Orders My Orders Orders - EFRAIN CARTWRIGHT Procedure Category Date Status Time Code Status CODE 04/12/24 Transmitted 06:24 Meropenem 1gm Ivpb PHA 04/12/24 In Process (Merrem 1gm/ Ns) 14:00 Blood Culture YSABEL 04/12/24 In Process 07:40 Urine Bacterial YSABEL 04/12/24 Uncollected Culture 07:40 Respiratory Culture YSABEL 04/12/24 Uncollected W/ Gs 07:40 Chest Portable XY 04/12/24 Resulted 07:40 Ok To Change Osullivan ORDERS 04/12/24 Transmitted 07:40 Date of Service: Apr 12, 2024 Billing Provider: ESE MAR MD Common Visit Codes: [id number] INP/OBS CARE(HIGH) EFRAIN CARTWRIGHT Apr 12, 2024 15:36 ESE MAR MD Apr 13, 2024 09:07
[2024-04-12] MEDS: CARBIDOPA LEVODOPA PO SCH (18:05)
[2024-04-12] MEDS: MORPHINE SULFATE INJ 2 MG/ml SYRG IV PRN (21:12)
[2024-04-13] VITALS (8 sets, daily range): BP systolic 103–124; BP diastolic 55–70; PULSE 63–115; RESP 16–20; TEMP 96.4–98.6; O2SAT 94–96
[2024-04-13 10:15] LABS: Mean Corpuscular Volume 86.1 fL (80.0-100.0)
[2024-04-13 10:17] LABS: Hematocrit 24.3 % (41.0-53.0); Hemoglobin 8.1 g/dL (13.5-17.5); Mean Corpuscular Hemoglobin 28.7 pg (28.0-32.0); Mean Corpuscular Hgb Conc. 33.3 g/dL (32.0-36.0); Platelet Count (auto) 103 10^3/uL (140-450); Red Blood Cells 2.82 10^6/uL (4.5-5.90); Red Cell Distribution Width 16.2 % (11.8-14.3)
[2024-04-13 10:24] LABS: Chloride 106 mmol/L (98-107); Sodium 139 mmol/L (136-145)
[2024-04-13 10:25] LABS: Anion Gap 6 (5-15); Calcium 9.3 mg/dL (8.7-10.4); Carbon Dioxide 27 mmol/L (20-31)
[2024-04-13 10:30] LABS: BUN/Creatinine Ratio 29.8 (10.0-20.0)
[2024-04-13 10:41] LABS: Blood Urea Nitrogen 28 mg/dL (9-23); Glucose 111 mg/dL (74-106); Potassium 3.2 mmol/L (3.5-5.1)
[2024-04-13 10:48] LABS: White Blood Cell 1.2 10^3/uL (4.4-10.8)
[2024-04-13 10:49] LABS: Band Neutrophils % (manual) 0; Basophils % (manual) 0 (0.0-2.0); Blast Cells 0; Metamyelocytes % 0; Myelocytes % 0; Promyelocytes % 0; Reactive Lymphocytes 0
[2024-04-13 11:52] LABS: Eosinophils % (manual) 4 (0-7); Lymphocytes % (manual) 27 (10.0-50.0); Monocytes % (manual) 23 (0-12); Platelet Estimate Decreased
--- NOTE | 2024-04-13 19:27 | DVHPNRES ---
Progress Note Date Seen: Apr 13, 2024 Resident Creating Document: EFRAIN CARTWRIGHT RESIDENT Medical Necessity Reason Pt with a Central, PICC or Fol: No Subjective Review of Systems pt seen and examined at bedside. pt is more alert today, oriented X4. not mentioning of any other complaints. Objective vital signs Vital Sign Date Time Temp Pulse Resp B/P (MAP) Pulse Ox O2 Delivery O2 Flow Rate FiO2 04/13/24 17:00 98.3 99 18 110/70 (83) 96 98.3 04/13/24 08:00 Room Air* 0 21 Total Intake and Output 04/12/24 04/12/24 04/13/24 15:00 23:00 07:00 Intake Total 650 ml 770 ml 850 ml Output Total 600 ml 750 ml Balance 650 ml 170 ml 100 ml medications Current Medications Medications Dose Ordered Sig/Desmond Route Start Time Stop Time Status Last Admin Dose Admin Duloxetine HCl 60 mg DAILY PO 04/11/24 10:00 04/13/24 09:52 60 MG Ondansetron HCl 4 mg Q4HP PRN IV 04/11/24 08:45 Docusate Sodium 100 mg BIDPRN PRN PO 04/11/24 08:45 Morphine Sulfate 2 mg Q4HPRN PRN IV 04/11/24 08:45 04/13/24 01:53 2 MG Nitroglycerin 0.4 mg Q5MINP PRN SL 04/11/24 08:45 Atorvastatin Calcium 20 mg HS PO 04/11/24 22:00 04/12/24 21:11 20 MG Quetiapine Fumarate 25 mg HS PO 04/11/24 22:00 04/12/24 21:11 25 MG Acetaminophen 650 mg Q6HP PRN PO 04/11/24 16:45 04/11/24 16:45 650 MG Meropenem 50 ml @ 17 mls/hr Q8HR IV 04/12/24 14:00 04/13/24 13:54 17 MLS/HR Patient Own Medication 2 cap QID PO 04/12/24 18:00 04/13/24 17:12 2 CAP Examination Examination General Appearance: Facial muscles resting tremor, pill rolling bilateral hands, Alert, Oriented X3, Cooperative, No acute distress HEENT: Dried blood in the angle of the mouth and over the mustache, left frontal scalp contusion Respiratory: Clear to auscultation, Normal air movement Cardiovascular: Regular rate, Normal S1, Normal S2 Abdominal: Normal bowel sounds Extremities: Left elbow dressing, right great toe dressing Skin: No rashes, No breakdown laboratory and microbiology Laboratory Tests 04/13/24 09:48 Test 04/13/24 09:48 Range/Units Serum Glucose 111 H 74-106 mg/dL Microbiology Date/Time Source Procedure Growth Status 04/12/24 18:00 Voided Urine Urine Culture - Preliminary Resulted 04/12/24 14:52 Blood Blood Culture - Preliminary NO GROWTH AFTER 24 HOURS OF INCUBATION. Resulted Labs and/or images reviewed: Labs reviewed by me, Image(s) reviewed by me Problem List/Assessment/Plan Problem List/Assessment/Plan Assessment/Plan # mechanical fall -head CT, right foot x-ray, cervical spine CT, chest x-ray, pelvic x-ray done, no acute fracture -pain meds -coumadin was held -fall precautions -PT #Scalp hematoma over the left frontal region -seen on head CT #Metabolic encephalopathy likely due to ?sepsis ?UTI, half-way osullivan catheter -IV fluids -IV meropenam -change osullivan -urine culture #Anemia normocytic -monitor CBC #Thrombocytopenia, likely chronic -monitor CBC #Leukopenia -hematology and oncology consult -CBC in the am #Hypokalemia -replaced #History of nephrolithiasis #Mitral valve replacement #CKD #Hyperlipidemia #Hypertension Code status discussed with the patient, who comprehended and understood about code status, and discussed with son over the phone, greatest 21 minutes, DNR Case discussed with Dr. Reis Plan discussed with: Patient, Other My Orders My Orders Orders - EFRAIN CARTWRIGHT RESIDENT Procedure Category Date Status Time * Hematology/Oncology CONS 04/13/24 Transmitted Consult 14:51 Dietary Evaluation Review Comments: consider Renal specific protein restriction at 60 g with his cardiac 2 gNa lo fat Lo Cholesterol diet. Expected Outcomes/Goals: avoid uremic symptoms. Date of Service: Apr 13, 2024 Billing Provider: ESE REIS MD Common Visit Codes: [id number] INP/OBS CARE(HIGH) EFRAIN CARTWRIGHT Apr 13, 2024 19:27 ESE REIS MD Apr 16, 2024 08:30
[2024-04-13] MEDS: POTASSIUM EFFERVESENT TAB 25 MEQ PO ONE (23:00)
[2024-04-13] MEDS: FILGRASTIM(TBO) 480 MCG/0.8 ML SYRG SC ONE (23:26)
[2024-04-14 01:00] VITALS: BP 109/65; PULSE 105; RESP 18; TEMP 97.9; O2SAT 95
[2024-04-14 05:00] VITALS: BP 97/67; PULSE 109; RESP 19; TEMP 98; O2SAT 94
[2024-04-14 07:29] LABS: Chloride 105 mmol/L (98-107); Potassium 3.9 mmol/L (3.5-5.1); Sodium 140 mmol/L (136-145)
[2024-04-14 07:30] LABS: Anion Gap 8 (5-15); Calcium 9.4 mg/dL (8.7-10.4); Carbon Dioxide 27 mmol/L (20-31)
[2024-04-14 07:35] LABS: BUN/Creatinine Ratio 31.1 (10.0-20.0)
[2024-04-14 07:37] LABS: Basophils # (auto) 0 10 ^3/uL (0-0.2); Basophils % (auto) 0.2 % (0.0-2.0); Eosinophils # (auto) 0 10 ^3/uL (0-0.8); Hematocrit 24.5 % (41.0-53.0); Hemoglobin 8.5 g/dL (13.5-17.5); Lymphocytes # (auto) 0.3 10 ^3/uL (0.4-5.4); Lymphocytes % (auto) 14.9 % (10.0-50.0); Mean Corpuscular Hemoglobin 29.2 pg (28.0-32.0); Mean Corpuscular Hgb Conc. 34.5 g/dL (32.0-36.0); Mean Corpuscular Volume 84.6 fL (80.0-100.0); Monocytes # (auto) 0.5 10 ^3/uL (0-1.3); Monocytes % (auto) 20.3 % (0.0-12.0); Neutrophils # (auto) 1.4 10 ^3/uL (1.6-8.6); Neutrophils % (auto) 62.6 % (37.0-80.0); Nucleated Red Blood Cells % 0.4 %; Platelet Count (auto) 107 10^3/uL (140-450); White Blood Cell 2.3 10^3/uL (4.4-10.8)
[2024-04-14 07:57] LABS: Glucose 98 mg/dL (74-106)
[2024-04-14 08:00] VITALS: PULSE 81
[2024-04-14 08:40] VITALS: BP 105/66; PULSE 68; RESP 18; O2SAT 96
[2024-04-14 09:13] LABS: Blood Urea Nitrogen 28 mg/dL (9-23)
[2024-04-14] MEDS ORDERED: FLUC200T PO (16:11)
--- NOTE | 2024-04-14 16:54 | DVHDSRES ---
Discharge Summary Date of Admission Resident Creating Document: EFRAIN CARTWRIGHT Apr 11, 2024 at 08:12 Date of Discharge: Apr 14, 2024 Labs/Diagnostic Data: Laboratory Results Test 04/14/24 05:55 04/13/24 09:48 04/12/24 18:31 04/12/24 09:25 White Blood Count 2.3 10^3/uL (4.4-10.8) Red Blood Count 2.90 10^6/uL (4.5-5.90) Hemoglobin 8.5 g/dL (13.5-17.5) Hematocrit 24.5 % (41.0-53.0) Mean Corpuscular Volume 84.6 fL (80.0-100.0) Mean Corpuscular Hemoglobin 29.2 pg (28.0-32.0) Mean Corpuscular Hemoglobin Concent 34.5 g/dL (32.0-36.0) Red Cell Distribution Width 16.0 % (11.8-14.3) Platelet Count 107 10^3/uL (140-450) Mean Platelet Volume 7.9 fL (6.9-10.8) Neutrophils (%) (Auto) 62.6 % (37.0-80.0) Lymphocytes (%) (Auto) 14.9 % (10.0-50.0) Monocytes (%) (Auto) 20.3 % (0.0-12.0) Eosinophils (%) (Auto) 2.0 % (0.0-7.0) Basophils (%) (Auto) 0.2 % (0.0-2.0) Neutrophils # (Auto) 1.4 10 ^3/uL (1.6-8.6) Lymphocytes # (Auto) 0.3 10 ^3/uL (0.4-5.4) Monocytes # (Auto) 0.5 10 ^3/uL (0-1.3) Eosinophils # (Auto) 0 10 ^3/uL (0-0.8) Basophils # (Auto) 0 10 ^3/uL (0-0.2) Nucleated Red Blood Cells 0.4 % Sodium Level 140 mmol/L (136-145) Potassium Level 3.9 mmol/L (3.5-5.1) Chloride Level 105 mmol/L (98-107) Carbon Dioxide Level 27 mmol/L (20-31) Anion Gap 8 (5-15) Blood Urea Nitrogen 28 mg/dL (9-23) Creatinine 0.90 mg/dL (0.700-1.30) Glomerular Filtration Rate Calc 86 mL/min (>90) BUN/Creatinine Ratio 31.1 (10.0-20.0) Serum Glucose 98 mg/dL (74-106) Calcium Level 9.4 mg/dL (8.7-10.4) Differential Total Cells Counted 100.0 (100) Neutrophils % (Manual) 46 (37.0-80.0) Band Neutrophils % (Manual) 0 Lymphocytes % (Manual) 27 (10.0-50.0) Monocytes % (Manual) 23 (0-12) Eosinophils % (Manual) 4 (0-7) Basophils % (Manual) 0 (0.0-2.0) Metamyelocytes % (manual) 0 Myelocytes % (Manual) 0 Promyelocytes % (Manual) 0 Blast Cells % (Manual) 0 Reactive Lymphocytes 0 Platelet Estimate Decreased Magnesium Level 2.1 mg/dL (1.6-2.6) Lactic Acid Level 1.6 mmol/L (0.4-2.0) Test 04/12/24 06:23 04/11/24 09:00 04/11/24 07:08 Total Bilirubin 0.6 mg/dL (0.2-1.0) Aspartate Amino Transferase (AST) 9 U/L (13-40) Alanine Aminotransferase (ALT) < 9 U/L (7-40) Alkaline Phosphatase 72 U/L (46-116) Total Protein 5.5 g/dL (5.7-8.2) Albumin 3.4 g/dL (3.2-4.8) Urine Color Light-orange (Yellow) Urine Clarity Turbid (Clear) Urine pH 6.0 (5.0-9.0) Urine Specific [place] 1.015 (1.001-1.035) Urine Protein 2+ (Negative) Urine Ketones 1+ (Negative) Urine Blood 3+ /uL (Negative) Urine Nitrite Negative (Negative) Urine Bilirubin Negative (Negative) Urine Urobilinogen Normal mg/dL (Negative) Urine Leukocyte Esterase 3+ /uL (Negative) Urine RBC 2 /hpf (0 - 3) Urine WBC 2 /hpf (0 - 3) Urine Squamous Epithelial Cells Few /hpf (<5) Urine Bacteria None seen /hpf (None Seen) Urine Glucose Normal mg/dL (Normal) Troponin I High Sensitivity 24 ng/L (</=54) Other Laboratory Tests 04/14/24 05:55 Brief Hx & Hospital Course: 78 yr old male pmh chronic UTIs, renal calculi, thrombocytopenia, Parkinson's disease, and history mitral valve replacement approximately 20 years ago with current anticoagulation with Coumadin ckd stage 3 hld, htn, mi, recent admission for cystitis with ecoli bacteria from kidney stone had lithropys and stent placement, chronic osullivan placement seen by dr gregory marshall, surgical history cabg ptca cc pt as found to have a mechanical fall at home, lives iwth family while gettting up to go to bathroom, per nurse pt family states pt have been falling frequently, pt has hx of parkison disease could be reason for fall but when he fell this time he hit his head and had hematoma to left head, along with left forearm abrasion and right great toe injury, pt in bed only alert x2, unsure baseline, when evaluating pt labs and imaging pt found to have ebc 1.5, hemoglobin 9.3, plt count 98 k3.3, 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 Patient's Coumadin was held. Physical therapy was ordered for the patient and pain medication was continued. Scalp hematoma over the left frontal region was seen on CT. Patient was also continued on IV fluids, IV meropenem for UTI, questionable sepsis. His Osullivan was changed and urine culture was ordered which grew more than [id number] CFU. Patient was also noted to have a pancytopenia, for which he was given filgrastim. On the day of discharge, patient appeared well and had stable vital signs, blood cell counts had improved, and patient's confusion also improved however he remained A&O x2. Plan of care details were explained to patient and his son at bedside in great detail were all questions were answered and concerns addressed. Patient and son noted if there is no active acute condition they would like to be discharged as patient tends to get delirious in the hospital and gets agitated. He was given 400 mg dose of Diflucan in the hospital and prescribed 200 mg Diflucan p.o. daily for 7 days. His hospital course was uncomplicated. General Appearance: Facial muscles resting tremor, pill rolling bilateral hands, Alert, Oriented X3, Cooperative, No acute distress HEENT: Dried blood in the angle of the mouth and over the mustache, left frontal scalp contusion Respiratory: Clear to auscultation, Normal air movement Cardiovascular: Regular rate, Normal S1, Normal S2 Abdominal: Normal bowel sounds Extremities: Left elbow dressing, right great toe dressing Skin: No rashes, No breakdown Condition at Discharge: Fair Final Diagnosis/Problems List S/p mechanical fall Scalp hematoma over the left frontal region Metabolic encephalopathy likely due to UTI, long-term Osullivan catheter Anemia normocytic Thrombocytopenia, likely chronic Leukopenia History of leukemia Hypokalemia History of nephrolithiasis CKD Hyperlipidemia Hypertension Mitral valve replacement Discharge Disposition: Home Discharge Instruct/Medications Diet: Cardiac 2g Na,low cholest, Renal Activity: No Restrictions, As Tolerated Follow Up/Referral: Please follow up with PCP in 1-2 weeks Please follow up with Urology in the outpatient clinic for stent removal Medications: Diflucan 200 mg once daily for 7 days Discharge Statement: "Patient was advised to return to the ER or call 911 if any headaches, dizziness, shortness of breath, chest pain, abdominal pain, bleeding, fevers, or worsening of medical condition. Patient was counseled about treatment plan, medications, possible side effects, patientverbalized understanding. All questions were answered to the best of my ability. This discharge took greater then 30 minutes in planning, reviewing documentation, counseling the patient, and discussing with other team members." ASSESSMENT ASSESSMENT Assessment S/p mechanical fall Scalp hematoma over the left frontal region Metabolic encephalopathy likely due to UTI, long-term Osullivan catheter Anemia normocytic Thrombocytopenia, likely chronic Leukopenia History of leukemia Hypokalemia History of nephrolithiasis CKD Hyperlipidemia Hypertension Mitral valve replacement Date of Service: Apr 14, 2024 Billing Provider: MISTY MORE MD Common Visit Codes: 01220-DPF/OBS DISCH DAY >30min AMITA ROD Apr 14, 2024 16:54 MISTY MORE MD Apr 15, 2024 10:25
[2024-04-14] MEDS: FLUCONAZOLE 200MG/100ML 100 ML IV ONE (17:24)
[2024-04-14 17:51] VITALS: TEMP 36.7
[2024-04-18] MEDS ORDERED: LINE1TAB6 PO (18:51)
== END 2024-04-14 18:52 | disposition home or self-care (01) | DRG 698 ==
LOC: EDBD 03:16 → ER 03:16 → TELE 08:12 → TELE-WESTW 19:48 → TELE-CENTR 04-13 21:40
PROVIDERS: ADMIT Student in an Organized Health Care Education/Training Program; ATTEND Emergency Medicine
DX: T83.518A Infection and inflammatory reaction due to other urinary catheter, initial encounter (principal); G93.41 Metabolic encephalopathy; D61.818 Other pancytopenia; N39.0 Urinary tract infection, site not specified; S00.83XA Contusion of other part of head, initial encounter; S40.812A Abrasion of left upper arm, initial encounter; E78.5 Hyperlipidemia, unspecified; G20.A1 Parkinson's disease without dyskinesia, without mention of fluctuations; I25.10 Atherosclerotic heart disease of native coronary artery without angina pectoris; E87.6 Hypokalemia; W18.39XA Other fall on same level, initial encounter; I12.9 Hypertensive chronic kidney disease with stage 1 through stage 4 chronic kidney disease, or unspecified chronic kidney disease; N18.30 Chronic kidney disease, stage 3 unspecified; D69.6 Thrombocytopenia, unspecified; D64.9 Anemia, unspecified; Z88.1 Allergy status to other antibiotic agents; Z83.3 Family history of diabetes mellitus; Z95.1 Presence of aortocoronary bypass graft; Z87.442 Personal history of urinary calculi; Z95.2 Presence of prosthetic heart valve; Z85.72 Personal history of non-Hodgkin lymphomas; Y93.89 Activity, other specified; Y92.89 Other specified places as the place of occurrence of the external cause; Y99.8 Other external cause status
CPT/HCPCS: 36415; 70450; 71045; 72125; 72170; 73630; 80048; 80053; 81001; 83605; 83735; 84484; 85007; 85025; 85027; 87040; 87086; 87088; 93005; 96365; 97110; 97116; 97163; G0378; J1447; J1450; J2185

== ENCOUNTER 2024-04-23 08:54 | Emergency (ER) | payer OTHER ==
[~2024-04-23] VITALS: Ht 172.7 cm; Wt 97.0 kg
[~2024-04-23 08:54] MED LIST changes: -CARB1CAP5 PO; +FLUC200T PO; +LINE1TAB6 PO
--- NOTE | 2024-04-23 09:19 | ECG ---
[facility] Test Date: 2024-04-23 Test Time: 09:07:51 Pat Name: QUENTIN SMITH Department: ER Room: Gender: M Cardiac Monitor Technician: CHRISTOPHER : 1945 Requested By: BEULAH BENSON Order Number: [id number] Reading MD: Dustin Goodwin Measurements Intervals [place] Rate: 74 P: 16 KS: 52 QRS: 43 QRSD: 115 T: -62 QT: 428 QTc: 475 Interpretive Statements Sinus rhythm Atrial premature complex Short [place] interval Nonspecific intraventricular conduction delay Inferior infarct, age indeterminate Baseline wander in lead(s) V1,V3 Electronically Signed On 04-24-2024 18:22:48 PST by Dustin Goodwin Please click the below link to view image of tracing.
--- NOTE | 2024-04-23 09:49 | ED.PDOC ---
History of Present Illness(SKN HPI Comments 79 Y M status PFS, presents to the ED with CC of wound check. Patient states, that he was sent by his PCP for possible infection to his right great toe nail. Patient, additionally had a fall on 04/21/24 hitting his head; denies LOC. Patient denies fever, chills, nausea, vomiting, or diarrhea. Chief Complaint: Wound Check Time Seen by MD: 09:17 Primary Care Provider: RAFAEL Allergies: Coded Allergies: Ciprofloxacin (Verified Allergy, Mild, oral blisters and rash, 04/03/24) Sulfa Antibiotics (Verified Allergy, Unknown, 04/03/24) Home Meds Active Scripts Linezolid (Zyvox) 600 Mg Tab, 600 MG PO BID for 10 Days, #20 TAB repeat CBC in 1 week and follow up with pcp Prov:AMITA ROD RESIDENT 04/18/24 Fluconazole (Diflucan) 200 Mg Tab, 200 MG PO DAILY for 7 Days, #7 TAB Prov:MISTY MORE MD 04/14/24 Warfarin Sodium (Warfarin Sodium) 4 Mg Tab, 1 TAB PO DAILY, #30 Prov:REFUGIO WIN Pharmacist 05/07/20 Reported Medications Quetiapine Fumarate (Quetiapine Fumarate) 150 Mg Tab, 150 MG PO, TAB 04/03/24 Duloxetine Hcl (Cymbalta) 60 Mg Cap, 1 CAP PO DAILY, #90 CAP 3 Refills 02/14/24 Carbidopa-Levodopa (Rytary 36.25-145 mg) 1 Cap Cap, 2 CAP PO QID for PARKINSONS, CAP 07/25/23 Baclofen (Baclofen) 10 Mg Tab, 10 MG PO DAILY for BACK PAIN 06/22/22 Hydrocodone-Acetaminophen (Hydrocodone Bitartrate/AC 10-325 mg) 1 Tab Tab, 1 TAB PO DAILY for PAIN, TAB 06/22/22 Clopidogrel Bisulfate (Plavix) 75 Mg Tab, 75 MG PO DAILY for BLOOD THINNER 10/06/20 Lovastatin (Lovastatin) 40 Mg Tab, 1 TAB PO DAILY for CHOLESTEROL 05/04/20 Mode of Arrival: Wheelchair Past Medical History PAST MEDICAL HISTORY: CAD, Cancer, High Lipids, HTN, Kidney Stones, [place] Surgical History: CABG, PTCA Family History Family History: Family hx of DM, Family hx of heart johnnie Social History Smoker: Non-Smoker Alcohol: Denies ETOH Use Drugs: Denies Drug Use Lives In: Home Physical Exam General Appearance: Moderate Distress HEENT: Normal ENT Inspection, Pharynx Normal, TMs Normal Neck: Full Range of Motion, Non-Tender, Normal, Normal Inspection Respiratory: Chest Non-Tender, Lungs Clear, No Accessory Muscle Use, No Respiratory Distress, Normal Breath Sounds Cardiovascular: No Edema, No JVD, No Murmur, No Gallop, Normal Peripheral Pulses, Regular Rate/Rhythm Breast Exam: Deferred Gastrointestinal: No Organomegaly, Non Tender, No Pulsatile Mass, Normal Bowel Sounds, Soft Genitalia: Deferred Pelvic: Deferred Rectal: Deferred Extremities: No calf tenderness, Normal capillary refill, Normal inspection, Normal range of motion, Non-tender, No pedal edema Musculoskeletal : Apperance: Normal Neurologic: Alert, charter boat operator II-XII nml as Tested, No Motor Deficits, Normal Affect, Normal Mood, No Sensory Deficits Cerebellar Function: NOT DONE Reflexes: NOT DONE Skin: Dry, Normal Color, Warm Peripheral Pulses: 3+ Radial (R), 3+ Radial (L) Lymphatic: No Adenopathy Was a procedure done? Was a procedure done?: No Differential Diagnosis (INTG) Differential Diagnosis: Abrasion, Cellulitis X-Ray, Labs, Meds, VS Vital Signs Date Time Temp Pulse Resp B/P (MAP) Pulse Ox O2 Delivery O2 Flow Rate FiO2 04/23/24 12:13 98.3 81 17 113/51 (71) 96 98.3 04/23/24 09:07 74 04/23/24 09:03 98.1 76 18 96/52 (67) [address] [address] Ph: [phone] DIAGNOSTIC IMAGING Diagnostic Imaging Report : [id number] Signed PATIENT: QUENTIN SMITH ACCT: [id number] UNIT: [id number] : 1945 LOC: ER ROOM / BED: / AGE / SEX: 79 / M ADM STATUS: REG ER SERVICE [id number] ORDERING PHYSICIAN: BEULAH BENSON MD PROCEDURE(s): HWOCT - HEAD WITHOUT CONTRAST REASON: fall ORDER NUMBER(s): [id number], ACCESSION NUMBER(s): [id number] EXAM: CT HEAD WITHOUT CONTRAST HISTORY: fall COMPARISON: CT HEAD WITHOUT CONTRAST on DOS: 04/11/24, CT CERVICAL WITHOUT CONTRAST on DOS: 04/11/24 TECHNIQUE: Axial images of the head were obtained and reformatted in coronal and sagittal planes. All CT scans at this medical facility are performed using dose modulation techniques as appropriate to a performed exam including the following: Automated exposure control was utilized; adjustment of the MA and/or KV according to patient size; and use of iterative reconstruction technique. CT Dose: CTDI volume is 59 mGy. Dose-length product is 10 70 mGy*cm FINDINGS: There is no evidence of acute intracranial hemorrhage, mass, mass effect midline shift. There is no hydrocephalus or extra-axial fluid collection. There are chronic microvascular white matter ischemic changes. Maloney-white matter differentiation is maintained. The visualized paranasal sinuses and mastoid air cells are clear. The calvarium is intact. IMPRESSION: 1. No acute intracranial process. HS:Y ATED BY: JORGE ARITA MD DICTATED DATE/TIME: 04/23/24 1029 SIGNED BY: JORGE ARITA MD SIGNED DATE/TIME: 04/23/24 1029 CC: Patient alert. Head injury few days ago on his toe. Healing well. Vitals stable. Answering all questions. Had a fall yesterday landing on his head. CT of the head reviewed does not show any acute process. Reviewed his previous visit. He is currently on antibiotics. Explained to the family. Was told to follow up with his primary care physician. Was told to come back if there is any problem. Time of 1ST Reevaluation: 12:01 Reevaluation 1ST: Improved Patient Education/Counseling: Diagnosis, Treatment, Prognosis, Need For Follow Up Family Education/Counseling: Need For Follow Up Departure 1 Departure Time of Disposition: 12:02 Impression: Primary Impression: Head injury Qualified Codes: S09.90XA - Unspecified injury of head, initial encounter Disposition: HOME / SELF CARE / HOMELESS Condition: Good Discharged With: Self Critical Care Note Critical Care Time?: No Stability Stability form required: No Heart Score Heart Score: Heart Score Response (Comments) Value History N/A 0 EKG N/A 0 Age N/A 0 Risk Factors N/A 0 Troponin N/A 0 Total 0 I personally scribed for BEULAH BENSON MD ([email or web address]) on 04/23/24 at 09:49. Electronically submitted by Diane Thakkar ([email or web address]). I personally scribed for BEULAH BENSON MD ([email or web address]) on 04/23/24 at 11:16. Electronically submitted by Diane Thakkar ([email or web address]). BEULAH BENSON MD Apr 23, 2024 09:49
--- NOTE | 2024-04-23 10:29 | DVH ---
EXAM: CT HEAD WITHOUT CONTRAST HISTORY: fall COMPARISON: CT HEAD WITHOUT CONTRAST on DOS: 04/11/24, CT CERVICAL WITHOUT CONTRAST on DOS: 04/11/24 TECHNIQUE: Axial images of the head were obtained and reformatted in coronal and sagittal planes. All CT scans at this medical facility are performed using dose modulation techniques as appropriate t o a performed exam including the following: Automated exposure control was utilized; adjustment of th e MA and/or KV according to patient size; and use of iterative reconstruction technique. CT Dose: CTDI volume is 59 mGy. Dose-length product is 10 70 mGy*cm FINDINGS: There is no evidence of acute intracranial hemorrhage, mass, mass effect midline shift. There is no h ydrocephalus or extra-axial fluid collection. There are chronic microvascular white matter ischemic changes. Maloney-white matter differentiation is maintained. The visualized paranasal sinuses and mastoid air cells are clear. The calvarium is intact. IMPRESSION: 1. No acute intracranial process. HS:Y
[2024-04-23 12:13] VITALS: BP 113/51; PULSE 81; RESP 17; TEMP 98.3; O2SAT 96
== END 2024-04-23 12:37 | disposition home or self-care (01) ==
LOC: ER 08:54
DX: S09.8XXA Other specified injuries of head, initial encounter (principal); M79.674 Pain in right toe(s); I10 Essential (primary) hypertension; I25.10 Atherosclerotic heart disease of native coronary artery without angina pectoris; Z79.899 Other long term (current) drug therapy; Z95.1 Presence of aortocoronary bypass graft; Z98.890 Other specified postprocedural states; Z88.1 Allergy status to other antibiotic agents; Z88.2 Allergy status to sulfonamides; W18.39XA Other fall on same level, initial encounter; Y93.89 Activity, other specified; Y92.89 Other specified places as the place of occurrence of the external cause; Y99.8 Other external cause status
CPT/HCPCS: 70450; 93005

== ENCOUNTER 2024-05-07 20:08 | Inpatient (IN) | payer OTHER ==
[~2024-05-07] VITALS: Ht 185.4 cm; Wt 87.9 kg
--- NOTE | 2024-05-07 20:47 | ED.PDOC ---
Altered Mental Status HPI Comments HPI: Poor Historian. 79-year-old male brought in by ambulance from home for ALOC. Patient completed a course of antibiotics for a UTI. He was hospitalized approximately a week ago and urinary stent was placed. The family noticed that the urine is getting darker and darker. He is not acting himself today. Initially at the scene patient was hypotensive systolic blood pressure in the 70s.. Patient was given 500 cc normal saline bolus which improved his blood pressure. Later in the course that is son came to bedside and was consented for blood transfusion since the patient's altered. He said that the patient received blood transfusions in the past and he was recently admitted here at this facility. He did say that he saw some hematuria this morning. Past Medcial History: Hypertension, hyperlipidemia, Parkinson's disease, atrial fibrillation. Patient is on Coumadin and Plavix and [place]. History abdominal aortic aneurysm, ACS, gout, CHF, hypertension, pyelonephritis, right ureteral stone, UTI Past Surgical History: REVIEW OF SYSTEMS: Limited given the patient's ALOC CONSTITUTIONAL: Denies acute: fever, diaphoresis, chills, HEAD: Denies acute: headache, photophobia Eyes: Denies acute: Double vision, vision loss, eye pain, eye discharge. EARS: Denies acute: tinnitus, hearing loss, ear discharge, ear pain, THROAT: Denies acute: sore throat, swelling, difficulty swallowing , pain with swallowing, change in voice. NECK: Denies acute: neck pain, neck swelling, stiff neck. HEART: Denies acute : chest pain, palpitations, LUNGS: Denies acute: SOB, wheezing, cough, hemoptysis ABDOMEN: Denies acute: abdominal pain, Nausea, Vomiting, diarrhea, melena , hematemesis, hematochezia SKIN: Denies acute: rash, redness, lesions, itchiness. EXTREMITIES: Denies acute: calf pain, numbness, tingling, weakness, denies pain in extremity. Denies acute: Low back pain. Neuro: Denies acute: focal neurological deficit, motor or sensory focal neurological deficit, tremors, seizure like activity, confusion, dizziness, change in mental status, loss of bowel or bladder function, cauda equina like symptoms. : Denies acute: dysuria, hematuria, flank pain, increase in urinary frequency. PSYCH: Denies acute: hallucination, suicidal ideation, homicidal ideation. PHYSICAL EXAM: General: no acute distress, awake and alert. Appears weak. When asked if he is having any pain he said I do not know Head: normocephalic, atraumatic. Neck: supple, trachea is midline, no swelling. Eyes:, no erythema, no purulent discharge, no proptosis, no icterus. Heart: Irregular rhythm, regular rate with a history of atrial fibrillation. no significant murmur appreciated. Lungs: no apparent respiratory distress, Able to speak in full sentences. No wheezing, no rhonchi, no crackles. No stridors Clear to auscultation bilaterally. Abdomen: non tender to palpation, non distended, soft, no guarding, no rebound, + bowel sounds. Neuro: Awake, Alert, Skin: no petechia, no purpura, no cyanosis, appears-pale, not jaundice. Lower extremities: --no - Pitting edema no deformity, no focal swelling, no calf TTP. Able to wiggle his toes bilaterally. Occasionally Makes eye contact. Face: no apparent facial droop. Chief Complaint: ALOC Time Seen by MD: 20:18 Primary Care Provider: RAFAEL Reviewed Notes: Nurses Notes, [place] [facility] Notes, Allergies Allergies: Coded Allergies: Ciprofloxacin (Verified Allergy, Mild, oral blisters and rash, 04/03/24) Sulfa Antibiotics (Verified Allergy, Unknown, 04/03/24) Home Meds Active Scripts Potassium Chloride (Potassium Chloride ER) 10 Meq Tab, 10 MEQ PO QAM for 30 Days, #30 TAB Prov:MISTY MORE MD 05/10/24 Furosemide (Lasix) 20 Mg Tb, 1 TAB PO DAILY, #30 TAB 0 Refills Prov:MISTY MORE MD 05/10/24 Pantoprazole Sodium Sesquihydr (Protonix) 40 Mg Tab, 40 MG PO DAILY for 30 Days, #30 TAB Prov:MISTY MORE MD 05/10/24 Cephalexin (KEFLEX CAPSULE) 250 Mg Cp, 500 MG PO TID for 7 Days, #21 CAP Prov:MISTY MORE MD 05/10/24 Reported Medications Quetiapine Fumarate (Quetiapine Fumarate) 150 Mg Tab, 150 MG PO, TAB 04/03/24 Duloxetine Hcl (Cymbalta) 60 Mg Cap, 1 CAP PO DAILY, #90 CAP 3 Refills 02/14/24 Carbidopa-Levodopa (Rytary 36.25-145 mg) 1 Cap Cap, 2 CAP PO QID for [place]ARKIN[place]S, CAP 07/25/23 Baclofen (Baclofen) 10 Mg Tab, 10 MG PO DAILY for BACK PAIN 06/22/22 Clopidogrel Bisulfate (Plavix) 75 Mg Tab, 75 MG PO DAILY for BLOOD THINNER 10/06/20 Lovastatin (Lovastatin) 40 Mg Tab, 1 TAB PO DAILY for CHOLESTEROL 05/04/20 Discontinued Reported Medications Hydrocodone-Acetaminophen (Hydrocodone Bitartrate/AC 10-325 mg) 1 Tab Tab, 1 TAB PO DAILY for PAIN, TAB 06/22/22 Discontinued Scripts Linezolid (Zyvox) 600 Mg Tab, 600 MG PO BID for 10 Days, #20 TAB repeat CBC in 1 week and follow up with pcp Prov:AMITA ROD RESIDENT 04/18/24 Fluconazole (Diflucan) 200 Mg Tab, 200 MG PO DAILY for 7 Days, #7 TAB Prov:MISTY MORE MD 04/14/24 Warfarin Sodium (Warfarin Sodium) 4 Mg Tab, 1 TAB PO DAILY, #30 Prov:REFUGIO WIN Pharmacist 05/07/20 Information Source: Relative, Emergency Med Personnel Mode of Arrival: EMS Past Medical History PAST MEDICAL HISTORY: CAD, Cancer, High Lipids, HTN, Kidney Stones, [place] Surgical History: CABG, PTCA Family History Family History: Family hx of DM, Family hx of heart johnnie Social History Smoker: Non-Smoker Alcohol: Denies ETOH Use Drugs: Denies Drug Use Lives In: Home Was a procedure done? Was a procedure done?: No Differential Diagnosis (ALOC) Differential Diagnosis: Other (DDX include CVA, TGA, cerebellar ischemia/infarct, carotid stenosis, Intracranial mass/infection/bleed, encephalopathy, electrolyte abnormality, thyroid disease, hydrocephalus, hypoglycemia, drug toxicity, cardiac arrhythmia, seizure, infection in the elderly, Hyperammonemia., kidney failure., sepsis.) X-Ray, Labs, Meds, VS Vital Signs Date Time Temp Pulse Resp B/P (MAP) Pulse Ox O2 Delivery O2 Flow Rate FiO2 05/07/24 23:35 97.4 71 22 121/46 (71) 100 97.4 05/07/24 23:35 97.4 71 22 121/46 97.4 05/07/24 23:20 96.2 71 21 129/48 (75) 100 96.2 05/07/24 23:20 96.2 71 21 129/48 96.2 05/07/24 23:15 96.2 66 17 102/48 (66) 100 96.2 05/07/24 23:15 96.2 66 17 102/48 96.2 05/07/24 23:13 72 21 99 Nasal Cannula* 4 36 05/07/24 22:00 98.2 68 15 108/43 (64) 91 98.2 05/07/24 20:20 65 05/07/24 20:19 98.5 71 18 100/62 (75) 99 Lab Test 05/07/24 21:45 05/07/24 20:43 Range/Units Troponin I High Sensitivity 224 *H 213 *H </=54 ng/L White Blood Count 2.7 L 4.4-10.8 10^3/uL Red Blood Count 1.76 L 4.5-5.90 10^6/uL Hemoglobin 4.7 *L 13.5-17.5 g/dL Hematocrit 14.1 L 41.0-53.0 % Mean Corpuscular Volume 80.0 80.0-100.0 fL Mean Corpuscular Hemoglobin 27.0 L 28.0-32.0 pg Mean Corpuscular Hemoglobin Concent 33.7 32.0-36.0 g/dL Red Cell Distribution Width 17.4 H 11.8-14.3 % Platelet Count 182 140-450 10^3/uL Mean Platelet Volume 7.4 6.9-10.8 fL Neutrophils (%) (Auto) 37.0-80.0 % Lymphocytes (%) (Auto) 10.0-50.0 % Monocytes (%) (Auto) 0.0-12.0 % Basophils (%) (Auto) 0.0-2.0 % Neutrophils # (Auto) 1.6-8.6 10 ^3/uL Lymphocytes # (Auto) 0.4-5.4 10 ^3/uL Monocytes # (Auto) 0-1.3 10 ^3/uL Differential Total Cells Counted 100.0 100 Neutrophils % (Manual) 53 37.0-80.0 Band Neutrophils % (Manual) 1 Lymphocytes % (Manual) 30 10.0-50.0 Monocytes % (Manual) 15 H 0-12 Eosinophils % (Manual) 1 0-7 Basophils % (Manual) 0 0.0-2.0 Metamyelocytes % (manual) 0 Myelocytes % (Manual) 0 Promyelocytes % (Manual) 0 Blast Cells % (Manual) 0 Reactive Lymphocytes 0 Platelet Estimate Adequate Hypochromasia (manual) Moderate Anisocytosis (manual) Slight Microcytosis Moderate Tear Drop Cells Few Stomatocytes Few Prothrombin Time 9.3-11.8 sec Prothrombin Time INR > 8.0 *H 0.9-1.15 Activated Partial Thromboplast Time 72.3 *H 24.5-34.5 SEC Sodium Level 138 136-145 mmol/L Potassium Level 4.1 3.5-5.1 mmol/L Chloride Level 105 98-107 mmol/L Carbon Dioxide Level 26 20-31 mmol/L Anion Gap 7 5-15 Blood Urea Nitrogen 36 H 9-23 mg/dL Creatinine 1.42 H 0.700-1.30 mg/dL Glomerular Filtration Rate Calc 50 >90 mL/min BUN/Creatinine Ratio 25.4 H 10.0-20.0 Serum Glucose 107 H 74-106 mg/dL Lactic Acid Level 1.5 0.4-2.0 mmol/L Calcium Level 9.8 8.7-10.4 mg/dL Magnesium Level 2.3 1.6-2.6 mg/dL Total Bilirubin 0.9 0.2-1.0 mg/dL Aspartate Amino Transferase (AST) 11 L 13-40 U/L Alanine Aminotransferase (ALT) < 9 7-40 U/L Alkaline Phosphatase 89 46-116 U/L B-Type Natriuretic Peptide 648.88 0-100 pg/mL Total Protein 5.9 5.7-8.2 g/dL Albumin 3.7 3.2-4.8 g/dL [address] [address] Ph: [phone] DIAGNOSTIC IMAGING Diagnostic Imaging Report : [id number] Signed PATIENT: QUENTIN SMITH ACCT: [id number] UNIT: [id number] : 1945 LOC: ER ROOM / BED: / AGE / SEX: 79 / M ADM STATUS: REG ER SERVICE 17 ORDERING PHYSICIAN: FAISAL GUNTER DO PROCEDURE(s): CXRP - CHEST PORTABLE REASON: weak ORDER NUMBER(s): [id number], ACCESSION NUMBER(s): [id number] CHEST RADIOGRAPH Indication: weak Technique: Single frontal view of the chest was obtained Comparison: XY CHEST PORTABLE on DOS: 04/12/24, XY CHEST PORTABLE on DOS: 04/11/24, XY CHEST XRAY 1 VIEW on DOS: 02/21/24 Findings/ IMPRESSION: Postsurgical changes of the mediastinum. Right basilar atelectasis versus developing airspace disease. ATED BY: MARVEL NAVARRO DO DICTATED DATE/TIME: 05/07/242106 SIGNED BY: MARVEL NAVARRO DO SIGNED DATE/TIME: 05/07/242106 CC: [place] [id number] Ph: [phone] DIAGNOSTIC IMAGING Diagnostic Imaging Report : [id number] Signed PATIENT: QUENTIN SMITH ACCT: [id number] UNIT: [id number] : 1945 LOC: ER ROOM / BED: / AGE / SEX: 79 / M ADM STATUS: REG ER SERVICE 17 ORDERING PHYSICIAN: FAISAL GUNTER DO PROCEDURE(s): ABPL - CT AB PEL WO CON-NO ORAL OR IV REASON: weak, urinary stent placement, uti ORDER NUMBER(s): [id number], ACCESSION NUMBER(s): [id number] Exam: CT CT AB PEL WO CON-NO ORAL OR IV History: weak, urinary stent placement, uti Comparison Study: 02/13/2024; 02/15/2024 TECHNIQUE: Multidetector CT of the abdomen was performed from lung bases to pubic symphysis. Imaging was performed without IV contrast. Axial, coronal and sagittal multiplanar reformats were obtained from the axial data set by the technologist. Radiation Dose Information: CT Dose: CTDI volume is 19.78 mGy. Dose-length product is 1109.58 mGy*cm FINDINGS: Evaluation of solid organs is limited due to lack of intravenous contrast use. Findings: Lung Bases: No acute or significant lung base finding. Coronary artery calcifications. Can not exclude coronary stents.. No pleural or pericardial effusion. Liver: The liver is normal in size. No focal lesions. Gallbladder and Biliary Tree: Unremarkable Spleen: Unremarkable Pancreas: The pancreas is grossly normal in appearance. Adrenal Glands: Unremarkable Kidneys: Left ureteral catheter in place proximal portion within the renal pelvis and distal portion in the bladder. Bladder: Grossly unremarkable for degree of distention. Bowel: The stomach is grossly normal in appearance. Small bowel and colon are normal in caliber and distribution. 6-7 cm stool-filled rectum may represent fecal impaction. The appendix is not visualized; however, no secondary findings of acute appendicitis identified. Ascites: Absent Lymphadenopathy: No mesenteric, retroperitoneal or periportal lymphadenopathy. Abdominal Wall and Mesentery: Unremarkable. Vasculature: Below the level of the kidneys. Infrarenal abdominal aortic aneurysm. Appears smaller than 02/15/2024. Inferior vena cava appears enlarged (3.8 cm) in the upper abdomen but appears of more normal size 2.0 cm below the level of the kidneys. Pelvic Organs: Unremarkable Musculoskeletal: No aggressive focal bony lesions, acute fractures or dislocation. Sternal wire sutures in place Soft tissues: Unremarkable IMPRESSION: 1. Dense coronary artery calcifications. 2. Left ureteral stent in place 3. No calcified gallstones. 4. Pancreas appears unremarkable. 5. No findings of bowel obstruction. 6. Enlarged inferior vena cava measuring 3.8 cm at the top of the kidneys. Resumes more normal size below the level of the kidneys at 2.0 cm. Radiation optimization: All CT scans at this facility use at least one of these dose optimization techniques: automated exposure control mA and/or kV adjustment per patient size (includes targeted exams where dose is matched to clinical indication) or iterative reconstruction. ATED BY: FRANCO DOVE Jr., DO DICTATED DATE/TIME: 05/07/242115 SIGNED BY: FRANCO DOVE Jr., DO SIGNED DATE/TIME: 05/07/242115 CC: Time of 1ST Reevaluation: 21:31 Reevaluation 1ST: Unchanged Patient Education/Counseling: Other Family Education/Counseling: No Family Present Comments Patient was found with elevated troponin which could be due to his severe anemia that is causing ischemic demand. EKG does not show STEMI. Patient is already on Coumadin and Plavix. Patient could be having a GI bleed, I held off on giving him any anticoagulation for this reason. Patient presented with the above HPI.-ALOC workup was initiated. patient was found with the above mentioned diagnosis. the following medications were ordered: piperacillin-tazob, IV fluids the following tests were ordered: CT Abdomen w/o contrast, EKG, manual differe ntial, troponin, urinalysis, prothrombin time, PTPTT, magnesium, lactic acid, CMP, CBC, BNP, CXR Patient ED course and VS have been stabilized. Patient has been reassessed in the ED and remained in a stable condition. Pertinent incidental findings were discussed with the patient and/or family. Patient/family voices understanding and is agreeable with plan. Patient has been observed in the ED adequate length of time to insure improvement/stability. Escalation of care considered: Consideration of escalation to observation or admission Patient was ADMITTED to the medicine team for further evaluation and treatment of their presentation. All the reports of any imaging studies that were ordered by myself were reviewed by myself. Departure 1 Departure Time of Disposition: 21:25 Impression: Primary Impression: Altered mental status Additional Impressions: Symptomatic anemia Elevated troponin Supratherapeutic INR Hematuria Disposition: ADMITTED INPATIENT Admit to: Tele Condition: Guarded e-Prescriptions Potassium Chloride (Potassium Chloride ER) 10 Meq Tab 10 MEQ PO QAM for 30 Days, #30 TAB Prov: MISTY MORE MD 05/10/24 Furosemide (Lasix) 20 Mg Tb 1 TAB PO DAILY, #30 TAB 0 Refills Prov: MISTY MORE MD 05/10/24 Pantoprazole Sodium Sesquihydr (Protonix) 40 Mg Tab 40 MG PO DAILY for 30 Days, #30 TAB Prov: MISTY MORE MD 05/10/24 Cephalexin (KEFLEX CAPSULE) 250 Mg Cp 500 MG PO TID for 7 Days, #21 CAP Prov: MISTY MORE MD 05/10/24 Discharged With: Self Critical Care Note Critical Care Time?: Yes (1 hr-critical care time only) Heart Score Heart Score: Heart Score Response (Comments) Value History Moderate Suspicious 1 EKG Normal 0 Age >65 2 Risk Factors >3 or Hx ASHD 2 Troponin 1-2 x's Normal limit 1 Total 6 I personally scribed for FAISAL GUNTER DO ([email or web address]) on 05/07/24 at 22:16. Electronically submitted by Joselito Smiht ([email or web address]). I personally scribed for FAISAL GUNTER DO ([email or web address]) on 05/07/24 at 22:16. Electronically submitted by Joselito Smith ([email or web address]). I personally scribed for FAISAL GUNTER DO ([email or web address]) on 05/08/24 at 01:42. Electronically submitted by Joselito Smith ([email or web address]). FAISAL GUNTER DO May 07, 2024 20:46
[2024-05-07 21:06] LABS: White Blood Cell 2.7 10^3/uL (4.4-10.8)
[2024-05-07 21:08] LABS: Hematocrit 14.1 % (41.0-53.0); Mean Corpuscular Hgb Conc. 33.7 g/dL (32.0-36.0); Platelet Count (auto) 182 10^3/uL (140-450); Red Blood Cells 1.76 10^6/uL (4.5-5.90); Red Cell Distribution Width 17.4 % (11.8-14.3)
--- NOTE | 2024-05-07 21:10 | DVH ---
CHEST RADIOGRAPH Indication: weak Technique: Single frontal view of the chest was obtained Comparison: XY CHEST PORTABLE on DOS: 04/12/24, XY CHEST PORTABLE on DOS: 04/11/24, XY CHEST XRAY 1 V IEW on DOS: 02/21/24 Findings/ IMPRESSION: Postsurgical changes of the mediastinum. Right basilar atelectasis versus developing airspace disease .
--- NOTE | 2024-05-07 21:18 | DVH ---
Exam: CT CT AB PEL WO CON-NO ORAL OR IV History: weak, urinary stent placement, uti Comparison Study: 02/13/2024; 02/15/2024 TECHNIQUE: Multidetector CT of the abdomen was performed from lung bases to pubic symphysis. Imaging was performed without IV contrast. Axial, coronal and sagittal multiplanar reformats were obtained fr om the axial data set by the technologist. Radiation Dose Information: CT Dose: CTDI volume is 19.78 mGy. Dose-length product is 1109.58 mGy*cm FINDINGS: Evaluation of solid organs is limited due to lack of intravenous contrast use. Findings: Lung Bases: No acute or significant lung base finding. Coronary artery calcifications. Can not exclu de coronary stents.. No pleural or pericardial effusion. Liver: The liver is normal in size. No focal lesions. Gallbladder and Biliary Tree: Unremarkable Spleen: Unremarkable Pancreas: The pancreas is grossly normal in appearance. Adrenal Glands: Unremarkable Kidneys: Left ureteral catheter in place proximal portion within the renal pelvis and distal portion in the bladder. Bladder: Grossly unremarkable for degree of distention. Bowel: The stomach is grossly normal in appearance. Small bowel and colon are normal in caliber and d istribution. 6-7 cm stool-filled rectum may represent fecal impaction. The appendix is not visualize d; however, no secondary findings of acute appendicitis identified. Ascites: Absent Lymphadenopathy: No mesenteric, retroperitoneal or periportal lymphadenopathy. Abdominal Wall and Mesentery: Unremarkable. Vasculature: Below the level of the kidneys. Infrarenal abdominal aortic aneurysm. Appears smaller th an 02/15/2024. Inferior vena cava appears enlarged (3.8 cm) in the upper abdomen but appears of more normal size 2.0 cm below the level of the kidneys. Pelvic Organs: Unremarkable Musculoskeletal: No aggressive focal bony lesions, acute fractures or dislocation. Sternal wire sutur es in place Soft tissues: Unremarkable IMPRESSION: 1. Dense coronary artery calcifications. 2. Left ureteral stent in place 3. No calcified gallstones. 4. Pancreas appears unremarkable. 5. No findings of bowel obstruction. 6. Enlarged inferior vena cava measuring 3.8 cm at the top of the kidneys. Resumes more normal size b elow the level of the kidneys at 2.0 cm. Radiation optimization: All CT scans at this facility use at least one of these dose optimization butch hniques: automated exposure control mA and/or kV adjustment per patient size (includes targeted exam s where dose is matched to clinical indication) or iterative reconstruction.
[2024-05-07 21:20] LABS: Hemoglobin 4.7 g/dL (13.5-17.5)
[2024-05-07 21:22] LABS: Albumin 3.7 g/dL (3.2-4.8); Alkaline Phosphatase 89 U/L (46-116); Anion Gap 7 (5-15); BUN/Creatinine Ratio 25.4 (10.0-20.0); Bilirubin, Total 0.9 mg/dL (0.2-1.0); Calcium 9.8 mg/dL (8.7-10.4); Carbon Dioxide 26 mmol/L (20-31); Chloride 105 mmol/L (98-107); Magnesium 2.3 mg/dL (1.6-2.6); Potassium 4.1 mmol/L (3.5-5.1); Sodium 138 mmol/L (136-145)
[2024-05-07 21:23] LABS: Basophils % (manual) 0 (0.0-2.0); Blast Cells 0; Metamyelocytes % 0; Myelocytes % 0; Promyelocytes % 0; Reactive Lymphocytes 0; Total Protein 5.9 g/dL (5.7-8.2)
[2024-05-07 21:24] LABS: Alanine Aminotransferase < 9 U/L (7-40); Aspartate Aminotransferase 11 U/L (13-40); Blood Urea Nitrogen 36 mg/dL (9-23); Glucose 107 mg/dL (74-106)
[2024-05-07 21:55] LABS: INR > 8.0 (0.9-1.15)
[2024-05-07 21:56] LABS: Partial Thromboplastin Time 72.3 SEC (24.5-34.5)
[2024-05-07] MEDS: PIPERACILLIN-TAZOB 3.375GM 100 ML IV ONE (22:15)
[2024-05-07] MEDS: SODIUM CHLORIDE 0.9% 1,000 ML IV ONE (22:15)
[2024-05-07 22:32] LABS: Anisocytosis Slight; Band Neutrophils % (manual) 1; Eosinophils % (manual) 1 (0-7); Lymphocytes % (manual) 30 (10.0-50.0); Monocytes % (manual) 15 (0-12); Platelet Estimate Adequate
[2024-05-07 22:33] LABS: Hypochromia Moderate; Stomatocytes Few; Tear Drop Cells FEW
[2024-05-07] MEDS: phytonadione 10 MG in SODIUM CHL 0.9% 50 ML IV ONE (23:09)
[2024-05-07] MEDS: phytonadione 1 ML ONE (23:10)
[2024-05-07 23:13] VITALS: PULSE 72; RESP 21; O2SAT 99
[2024-05-07 23:15] VITALS: BP 102/48; PULSE 66; RESP 17; TEMP 96.2
[2024-05-07 23:20] VITALS: BP 129/48; PULSE 71; RESP 21; TEMP 96.2
[2024-05-07 23:35] VITALS: BP 121/46; PULSE 71; RESP 22; TEMP 97.4
--- NOTE | 2024-05-07 23:56 | DVHHPRES ---
History of Present Illness Resident Creating Document: ELDER HALE RESDIENT History of Present Illness This is a 79-year-old male with past medical history of hypertension, dyslipidemia, Parkinson disease, atrial fibrillation (on Coumadin), history of aortic aneurysm, acute coronary disease, CHF, hypertension, recurrent UTI, ureteral stone (status post stent), beta cell lymphoma, CKD grade 3, was brought to the hospital due to altered level of consciousness. Per patient's son, the patient had been more altered, decreased oral intake since 2 days and had noticed fresh blood in urine 2 times since yesterday's. Per patient's son, the patient did not have any fever, vomiting, cough, shortness of breaths and any new motor or sensory deficits. PMHx: hypertension, dyslipidemia, Parkinson disease, atrial fibrillation (on Coumadin), history of aortic aneurysm, acute coronary disease, CHF, hypertension, recurrent UTI, ureteral stone (status post stent), beta cell lymphoma, CKD grade 3 PSHx: Mitral valve replacement Social history: Patient lives with a son at home, use walker for the mobility, ex-smoker, denies any other drug use Home medication: Carbidopa/levodopa, clopidogrel, duloxetine, lovastatin, quetiapine and warfarin (4 mg) Allergic history: Ciprofloxacin and sulfa antibiotics Review of Systems Review of Systems Patient is lethargic, oriented to the person, disoriented to time and place, due to altered level of consciousness review of system could not obtain. Allergies: Coded Allergies: Ciprofloxacin (Verified Allergy, Mild, oral blisters and rash, 04/03/24) Sulfa Antibiotics (Verified Allergy, Unknown, 04/03/24) Exam Vital Signs Vital Signs Date Time Temp Pulse Resp B/P (MAP) Pulse Ox O2 Delivery O2 Flow Rate FiO2 05/07/24 23:35 97.4 71 22 121/46 (71) 100 97.4 05/07/24 23:13 Nasal Cannula* 4 36 Exam General Appearance: Altered, oriented to the person, disoriented to time and place HEENT: Atraumatic, PERRLA, EOMI, Mucous membrane moist/pink Respiratory: Clear to auscultation, Normal air movement Cardiovascular: Regular rate, Normal S1, Normal S2, No murmurs, no chest wall tenderness Abdominal: Normal bowel sounds, Soft, No tenderness, No hepatospenomegaly, No masses Extremities: Left knee is swollen and tender Skin: No rashes, No breakdown, No significant lesion Neuro: Normal gait, Normal speech, Strength at 5/5 X4 ext, Normal tone, Sensation intact, Cranial nerves 3-12 NL, Reflexes 2+ Psych/Mental Status: Mental status NL, Mood NL Labs/Xrays Labs Test 05/07/24 21:45 05/07/24 20:43 Range/Units Troponin I High Sensitivity 224 *H </=54 ng/L White Blood Count 2.7 L 4.4-10.8 10^3/uL Red Blood Count 1.76 L 4.5-5.90 10^6/uL Hemoglobin 4.7 *L 13.5-17.5 g/dL Hematocrit 14.1 L 41.0-53.0 % Mean Corpuscular Volume 80.0 80.0-100.0 fL Mean Corpuscular Hemoglobin 27.0 L 28.0-32.0 pg Mean Corpuscular Hemoglobin Concent 33.7 32.0-36.0 g/dL Red Cell Distribution Width 17.4 H 11.8-14.3 % Platelet Count 182 140-450 10^3/uL Mean Platelet Volume 7.4 6.9-10.8 fL Neutrophils (%) (Auto) 37.0-80.0 % Lymphocytes (%) (Auto) 10.0-50.0 % Monocytes (%) (Auto) 0.0-12.0 % Basophils (%) (Auto) 0.0-2.0 % Neutrophils # (Auto) 1.6-8.6 10 ^3/uL Lymphocytes # (Auto) 0.4-5.4 10 ^3/uL Monocytes # (Auto) 0-1.3 10 ^3/uL Differential Total Cells Counted 100.0 100 Neutrophils % (Manual) 53 37.0-80.0 Band Neutrophils % (Manual) 1 Lymphocytes % (Manual) 30 10.0-50.0 Monocytes % (Manual) 15 H 0-12 Eosinophils % (Manual) 1 0-7 Basophils % (Manual) 0 0.0-2.0 Metamyelocytes % (manual) 0 Myelocytes % (Manual) 0 Promyelocytes % (Manual) 0 Blast Cells % (Manual) 0 Reactive Lymphocytes 0 Platelet Estimate Adequate Hypochromasia (manual) Moderate Anisocytosis (manual) Slight Microcytosis Moderate Tear Drop Cells Few Stomatocytes Few Prothrombin Time 9.3-11.8 sec Prothrombin Time INR > 8.0 *H 0.9-1.15 Activated Partial Thromboplast Time 72.3 *H 24.5-34.5 SEC Sodium Level 138 136-145 mmol/L Potassium Level 4.1 3.5-5.1 mmol/L Chloride Level 105 98-107 mmol/L Carbon Dioxide Level 26 20-31 mmol/L Anion Gap 7 5-15 Blood Urea Nitrogen 36 H 9-23 mg/dL Creatinine 1.42 H 0.700-1.30 mg/dL Glomerular Filtration Rate Calc 50 >90 mL/min BUN/Creatinine Ratio 25.4 H 10.0-20.0 Serum Glucose 107 H 74-106 mg/dL Lactic Acid Level 1.5 0.4-2.0 mmol/L Calcium Level 9.8 8.7-10.4 mg/dL Magnesium Level 2.3 1.6-2.6 mg/dL Total Bilirubin 0.9 0.2-1.0 mg/dL Aspartate Amino Transferase (AST) 11 L 13-40 U/L Alanine Aminotransferase (ALT) < 9 7-40 U/L Alkaline Phosphatase 89 46-116 U/L B-Type Natriuretic Peptide 648.88 0-100 pg/mL Total Protein 5.9 5.7-8.2 g/dL Albumin 3.7 3.2-4.8 g/dL Assessment/Plan Assessment/Plan Metabolic encephalopathy, likely due to sepsis Sepsis, likely due to UTI UTI, unspecified location NSTEMI, likely type 2, likely due to above Head CT scan, shows UA shows UTI picture Urine/blood culture IV normal saline Empiric antibiotic of cefepime and Zyvox Acute hypoxic respiratory failure, likely due to pneumonia Pneumonia, likely due to Gram-positive Gram-negative bacteria/viral Check influenza type a, B and COVID-19 in MRSA nares Empiric antibiotic Oxygen through nasal cannula Possible warfarin toxicity leading to bleeding (hematuria) Severe anemia, HGB is 4.7, normocytic hypochromic INR is more than 8 Stopped warfarin Iron panel Monitoring INR Vitamin K 10 mg IV Fresh frozen plasma 2 units Transfused 2 pt of blood WILLARD, on CKD 2, likely VMN IV fluid Possible left side arthritis Left knee ultrasound DIET: NPO DVT PROPHYLAXIS: Due to raised INR, no anticoagulant is indicated GI PROPHYLAXIS:: Protonix CODE STATUS: Goal of care discussed with the patient's son, DNR DISPOSITION: Telemetry Patient's status and paln discussed with the patient through the phone. Case discussed with Dr. Ponce. Plan discussed with: Patient, Son, Other (RN) My Orders Orders - ELDER HALE Procedure Category Date Status Time Electrocardigram EKG 05/07/24 Logged 23:50 Date of Service: May 07, 2024 Billing Provider: MISTY PONCE MD Common Visit Codes: [id number] INP/OBS CARE (HIGH) ELDER HALE May 07, 2024 23:56 MISTY PONCE MD May 08, 2024 17:49
[2024-05-08] VITALS (17 sets, daily range): BP systolic 103–148; BP diastolic 41–67; PULSE 65–73; RESP 14–24; TEMP 97.2–99; O2SAT 98–100
[2024-05-08] MEDS: FUROSEMIDE 40 MG/4 ML VIAL IV ONE (00:30)
[2024-05-08 00:31] LABS: Base Excess -1.4 mmol/L (-2.0-3.0)
[2024-05-08] MEDS: PANTOPRAZOLE 40 MG/10 ML VIAL INJ IV ONE (00:59)
[2024-05-08 03:56] LABS: Urine Bacteria FEW /hpf (None Seen); Urine Blood 3+ /uL (Negative); Urine Clarity Ex.Turbid (Clear); Urine Color Light-Orange (Yellow); Urine Hyaline Cast MOD /lpf (0 - 2); Urine Mucus FEW (None Seen); Urine Protein, UAD 2+ (Negative); Urine Specific Gravity 1.019 (1.001-1.035); Urine Squamous Epithelial Cell FEW /hpf (<5); Urine Urobilinogen Normal (Negative); Urine WBC 1917 /hpf (0 - 3); Urine WBC Clumps PRESENT /hpf (None Seen); Urine pH 5.5 (5.0-9.0)
--- NOTE | 2024-05-08 04:02 | DVH ---
EXAM: CT HEAD WITHOUT CONTRAST INDICATION: aloc TECHNIQUE: CT of the head without intravenous contrast. Coronal and sagittal reformatted images are submitted. Radiation Dose : 1. Head: CT Dose: CTDI volume is 59.21 mGy. Dose-length product is 949.08 mGy*cm The dose indicators for CT are the volume Computed Tomography (CT) Dose Index (CTDIvol) and the Dose Length Product (DLP), and are measured in units of mGy and mGy-cm, respectively. These indicators are not patient dose, but values generated from the CT scanner acquisition factors. The report includes radiation exposure data for exposures received during this examination. All CT scans at this medical facility are performed using dose modulation techniques as appropriate to a performed exam including the following: Automated exposure control was utilized; adjustment of the MA and/or KV according to patient size; and use of iterative reconstruction technique. COMPARISON: CT HEAD WITHOUT CONTRAST on DOS: 04/23/24 FINDINGS: There is no evidence of acute intracranial hemorrhage, extra-axial collection, mass effect, midline s hift, herniation or hydrocephalus. Mild diffuse volume loss. The ventricles, sulci and cisterns are age appropriate. The adair-white differentiation is intact. The mastoid air cells are clear. There is opacification of the sphenoid sinus and the ethmoid air ce lls. No depressed calvarial fracture. The surrounding soft tissues are unremarkable. IMPRESSION: 1. No evidence of acute intracranial abnormality.
[2024-05-08 06:37] LABS: White Blood Cell 2.1 10^3/uL (4.4-10.8)
[2024-05-08 06:40] LABS: Hematocrit 17.3 % (41.0-53.0); Mean Corpuscular Hemoglobin 28.7 pg (28.0-32.0); Mean Corpuscular Hgb Conc. 34.2 g/dL (32.0-36.0); Mean Corpuscular Volume 83.9 fL (80.0-100.0); Platelet Count (auto) 144 10^3/uL (140-450); Red Blood Cells 2.07 10^6/uL (4.5-5.90); Red Cell Distribution Width 16.7 % (11.8-14.3)
[2024-05-08 06:44] LABS: Hemoglobin 5.9 g/dL (13.5-17.5)
[2024-05-08 06:46] LABS: Band Neutrophils % (manual) 0; Basophils % (manual) 0 (0.0-2.0); Blast Cells 0; Metamyelocytes % 0; Myelocytes % 0; Promyelocytes % 0; Reactive Lymphocytes 0
[2024-05-08 06:52] LABS: Albumin 3.9 g/dL (3.2-4.8); Alkaline Phosphatase 90 U/L (46-116); Anion Gap 9 (5-15); Aspartate Aminotransferase 15 U/L (13-40); BUN/Creatinine Ratio 26.1 (10.0-20.0); Calcium 9.2 mg/dL (8.7-10.4); Carbon Dioxide 25 mmol/L (20-31); Chloride 105 mmol/L (98-107); Glucose 102 mg/dL (74-106); Potassium 3.8 mmol/L (3.5-5.1); Sodium 139 mmol/L (136-145)
[2024-05-08 06:53] LABS: Alanine Aminotransferase < 9 U/L (7-40); Bilirubin, Total 1.3 mg/dL (0.2-1.0); Blood Urea Nitrogen 36 mg/dL (9-23); Total Protein 5.9 g/dL (5.7-8.2)
[2024-05-08 07:12] LABS: INR 1.73 (0.9-1.15); Prothrombin Time 17.4 sec (9.3-11.8)
[2024-05-08 08:29] LABS: Eosinophils % (manual) 1 (0-7); Lymphocytes % (manual) 25 (10.0-50.0); Monocytes % (manual) 24 (0-12)
[2024-05-08 08:30] LABS: Polychromasia Slight
[2024-05-08 08:31] LABS: Platelet Estimate Adequate
[2024-05-08 09:13] LABS: COVID19 ANTIGEN SOFIA FIA NEGATIVE (NEGATIVE); Rapid Influenza A Negative (Negative); Rapid Influenza B Negative (Negative)
--- NOTE | 2024-05-08 09:47 | ECG ---
[facility] Test Date: 2024-05-07 Test Time: 20:20:49 Pat Name: QUENTIN SMITH Department: ED Room: 0232 Gender: M Rough Carpenter: BRODY : 1945 Requested By: FAISAL GUNTER Order Number: [id number] Reading MD: Dustin Goodwin Measurements Intervals [place] Rate: 65 P: 0 UT: 0 QRS: 47 QRSD: 110 T: 194 QT: 541 QTc: 563 Interpretive Statements Atrial fibrillation Ventricular premature complex Inferior infarct, old Abnrm T, consider ischemia, anterolateral lds Prolonged QT interval Electronically Signed On 05-10-2024 16:33:46 PST by Dustin Goodwin Please click the below link to view image of tracing.
[2024-05-08] MEDS: PANTOPRAZOLE 40 MG/10 ML VIAL INJ IV SCH ×2 (11:54→22:56)
[2024-05-08] MEDS: CEFEPIME 1GM/ 50ML 50 ML IV SCH (12:09)
[2024-05-08] MEDS: LINEZOLID 600MG/300ML 300 ML IV SCH ×2 (14:47→22:56)
[2024-05-08] MEDS ORDERED: ACETAMINOPHEN 325 MG TAB PO PRN (17:00)
--- NOTE | 2024-05-08 17:03 | DVHPN2 ---
Subjective Seen and examined at bedside, transfuse PRBC. I spoke with the patients son over the phone, I did do a rectal exam with RN present no melena or hematochezia. Repeat H&H. Changes from previous H/P or p: No Changes Objective Vitals Vital Signs Date Time Temp Pulse Resp B/P (MAP) Pulse Ox O2 Delivery O2 Flow Rate FiO2 05/08/24 16:30 97.9 70 18 131/41 97.9 05/08/24 14:00 100 05/08/24 07:30 Nasal Cannula* 2 28 Intake/Output Intake and Output 05/08/24 07:00 Intake Total 2951 ml Output Total 0 ml Balance 2951 ml Intake Oral 0 ml IV Total 1151 ml Tube Feeding 0 ml Blood Product 1800 ml Other 0 ml Output Urine Total 0 ml General Appearance: Alert, Oriented X3, No acute distress HEENT: Atraumatic Lungs: Clear to auscultation Cardiovascular: Regular rate, Normal S1, Normal S2 Abdomen: Normal bowel sounds, Soft Rectal: Normal rectal tone Psych/Mental Status: Mental status NL Medications Current Medications Medications Dose Ordered Sig/Desmond Route Start Time Stop Time Status Last Admin Dose Admin Ceftriaxone Sodium 50 ml @ 100 mls/hr DAILY@09 IV 05/09/24 09:00 UNV Laboratory Results Laboratory Tests 05/08/24 06:05 Chemistry Test 05/07/24 20:43 05/08/24 06:05 Albumin 3.7 g/dL (3.2-4.8) 3.9 g/dL (3.2-4.8) Calcium Level 9.8 mg/dL (8.7-10.4) 9.2 mg/dL (8.7-10.4) Magnesium Level 2.3 mg/dL (1.6-2.6) Total Protein 5.9 g/dL (5.7-8.2) 5.9 g/dL (5.7-8.2) Coagulation Test 05/07/24 20:43 05/08/24 06:05 Prothrombin Time sec (9.3-11.8) 17.4 sec (9.3-11.8) H Prothrombin Time INR > 8.0 (0.9-1.15) *H 1.73 (0.9-1.15) H Activated Partial Thromboplast Time 72.3 SEC (24.5-34.5) *H Cardiac Markers Test 05/07/24 20:43 B-Type Natriuretic Peptide 648.88 pg/mL (0-100) LFT Test 05/07/24 20:43 05/08/24 06:05 Alanine Aminotransferase (ALT) < 9 U/L (7-40) < 9 U/L (7-40) Alkaline Phosphatase 89 U/L (46-116) 90 U/L (46-116) Aspartate Amino Transferase (AST) 11 U/L (13-40) L 15 U/L (13-40) Total Bilirubin 0.9 mg/dL (0.2-1.0) 1.3 mg/dL (0.2-1.0) H HgA1c, TSH Test 05/08/24 06:05 Thyroid Stimulating Hormone (TSH) 2.35 uIU/mL (0.55-4.78) Urinalysis Test 05/08/24 03:40 Urine Color Light-orange (Yellow) Urine Clarity Ex.turbid (Clear) Urine pH 5.5 (5.0-9.0) Urine Specific [place] 1.019 (1.001-1.035) Urine Protein 2+ (Negative) H Urine Ketones Trace (Negative) Urine Blood 3+ /uL (Negative) H Urine Nitrite Negative (Negative) Urine Bilirubin Negative (Negative) Urine Urobilinogen Normal mg/dL (Negative) Urine Leukocyte Esterase 3+ /uL (Negative) Urine RBC 175 /hpf (0 - 3) Urine WBC 1917 /hpf (0 - 3) Urine WBC Clumps Present /hpf (None Seen) Urine Squamous Epithelial Cells Few /hpf (<5) Urine Bacteria Few /hpf (None Seen) H Urine Hyaline Casts Mod /lpf (0 - 2) Urine Mucus Few (None Seen) Urine Glucose Normal mg/dL (Normal) Blood Gas Results Test 05/08/24 00:24 Arterial Blood pH 7.475 (7.350-7.450) FiO2 % 21.0 Assessment/Plan Assessment/Plan # Anemia possibly due to Hematuria - Transfuse PRBC - Urology consult - CBI - GI Consult # Complicated Cystitis - Abx # Metabolic Encephalopathy - Likely due to UTI Plan discussed with: Patient, Son My Orders Orders - MISTY MORE MD Procedure Category Date Status Time Npo (Nothing By DIET 05/08/24 Transmitted Mouth) Diet Dinner * Gi Dvh Commercial Correspondent CONS 05/08/24 Transmitted 16:40 Hemoglobin & LAB 05/08/24 Logged Hematocrit 16:40 Prothrombin Time W/ LAB 05/08/24 Logged INR 16:40 Ceftriaxone 1gm/50ml PHA 05/09/24 Logged D5w (Rocephin) 09:00 * Urology Consult CONS 05/08/24 Transmitted 16:53 Date of Service: May 08, 2024 Billing Provider: MISTY MORE MD Common Visit Codes: [id number] INP/OBS CARE(HIGH) MISTY MORE MD May 08, 2024 17:03
[2024-05-08 19:48] LABS: Hematocrit 22.6 % (41.0-53.0); Hemoglobin 7.6 g/dL (13.5-17.5)
[2024-05-08 20:00] LABS: INR 1.26 (0.9-1.15); Prothrombin Time 13.1 sec (9.3-11.8)
[2024-05-08] MEDS: TEMAZEPAM 15 MG CAP PO ONE (23:25)
[2024-05-09 05:32] LABS: White Blood Cell 2.6 10^3/uL (4.4-10.8)
[2024-05-09 05:35] LABS: Hematocrit 22.3 % (41.0-53.0); Hemoglobin 7.7 g/dL (13.5-17.5); Mean Corpuscular Hemoglobin 27.7 pg (28.0-32.0); Mean Corpuscular Hgb Conc. 34.5 g/dL (32.0-36.0); Mean Corpuscular Volume 80.5 fL (80.0-100.0); Platelet Count (auto) 135 10^3/uL (140-450); Red Blood Cells 2.77 10^6/uL (4.5-5.90)
[2024-05-09 05:37] LABS: Red Cell Distribution Width 21.7 % (11.8-14.3)
[2024-05-09 05:39] LABS: Band Neutrophils % (manual) 0; Basophils % (manual) 0 (0.0-2.0); Blast Cells 0; Metamyelocytes % 0; Myelocytes % 0; Promyelocytes % 0; Reactive Lymphocytes 0
[2024-05-09 05:49] LABS: Albumin 3.6 g/dL (3.2-4.8); Alkaline Phosphatase 84 U/L (46-116); Anion Gap 7 (5-15); Aspartate Aminotransferase 14 U/L (13-40); BUN/Creatinine Ratio 32.6 (10.0-20.0); Calcium 9.1 mg/dL (8.7-10.4); Carbon Dioxide 28 mmol/L (20-31); Chloride 106 mmol/L (98-107); Glucose 92 mg/dL (74-106); Sodium 141 mmol/L (136-145)
[2024-05-09 05:50] LABS: Alanine Aminotransferase < 9 U/L (7-40); Blood Urea Nitrogen 30 mg/dL (9-23); INR 1.33 (0.9-1.15); Partial Thromboplastin Time 32.8 SEC (24.5-34.5); Potassium 3.4 mmol/L (3.5-5.1); Prothrombin Time 13.7 sec (9.3-11.8)
[2024-05-09 05:51] LABS: Bilirubin, Total 1.4 mg/dL (0.2-1.0); Total Protein 5.7 g/dL (5.7-8.2)
[2024-05-09 07:30] VITALS: PULSE 65; RESP 18; O2SAT 100
[2024-05-09 08:36] LABS: Eosinophils % (manual) 2 (0-7); Lymphocytes % (manual) 27 (10.0-50.0); Monocytes % (manual) 16 (0-12)
[2024-05-09 08:37] LABS: Anisocytosis Slight; Platelet Estimate Decreased
[2024-05-09] MEDS: cefTRIAXone 1GM/50ML D5W 50 ML IV SCH (09:20)
[2024-05-09 10:30] VITALS: PULSE 64; RESP 18; O2SAT 100
--- NOTE | 2024-05-09 17:18 | DVHPN2 ---
Subjective Seen and examined at bedside, Cont Zyvox and Cefepime. Repeat UC needed. Changes from previous H/P or p: No Changes Objective Vitals Vital Signs Date Time Temp Pulse Resp B/P (MAP) Pulse Ox O2 Delivery O2 Flow Rate FiO2 05/09/24 17:07 97.9 66 16 124/56 (78) 97 97.9 05/09/24 10:30 Nasal Cannula* 2 28 Intake/Output Intake and Output 05/09/24 07:00 Intake Total 2250.0 ml Output Total 1100 ml Balance 1150.0 ml Intake Oral 0 ml IV Total 650.0 ml Tube Feeding 0 ml Blood Product 1600 ml Other 0 ml Output Urine Total 1100 ml General Appearance: Alert, Oriented X3, No acute distress HEENT: Atraumatic Lungs: Clear to auscultation Cardiovascular: Regular rate, Normal S1, Normal S2 Abdomen: Normal bowel sounds, Soft Rectal: Normal rectal tone Psych/Mental Status: Mental status NL Medications Current Medications Medications Dose Ordered Sig/Desmond Route Start Time Stop Time Status Last Admin Dose Admin Ceftriaxone Sodium 50 ml @ 100 mls/hr DAILY@09 IV 05/09/24 09:00 05/09/24 09:20 100 MLS/HR Pantoprazole Sodium 40 mg BID IV 05/08/24 22:00 05/09/24 09:39 40 MG Acetaminophen 650 mg Q6HP PRN PO 05/08/24 17:00 Linezolid 300 ml @ 150 mls/hr Q12HR IV 05/08/24 22:00 05/09/24 09:40 150 MLS/HR Laboratory Results Laboratory Tests 05/09/24 05:06 Chemistry Test 05/09/24 05:06 Albumin 3.6 g/dL (3.2-4.8) Calcium Level 9.1 mg/dL (8.7-10.4) Total Protein 5.7 g/dL (5.7-8.2) Coagulation Test 05/08/24 19:29 05/09/24 05:06 Prothrombin Time 13.1 sec (9.3-11.8) H 13.7 sec (9.3-11.8) H Prothrombin Time INR 1.26 (0.9-1.15) H 1.33 (0.9-1.15) H Activated Partial Thromboplast Time 32.8 SEC (24.5-34.5) Cardiac Markers Test 05/09/24 05:06 B-Type Natriuretic Peptide 1046.52 pg/mL (0-100) LFT Test 05/09/24 05:06 Alanine Aminotransferase (ALT) < 9 U/L (7-40) Alkaline Phosphatase 84 U/L (46-116) Aspartate Amino Transferase (AST) 14 U/L (13-40) Total Bilirubin 1.4 mg/dL (0.2-1.0) H Urinalysis Test 05/08/24 03:40 Urine Color Light-orange (Yellow) Urine Clarity Ex.turbid (Clear) Urine pH 5.5 (5.0-9.0) Urine Specific [place] 1.019 (1.001-1.035) Urine Protein 2+ (Negative) H Urine Ketones Trace (Negative) Urine Blood 3+ /uL (Negative) H Urine Nitrite Negative (Negative) Urine Bilirubin Negative (Negative) Urine Urobilinogen Normal mg/dL (Negative) Urine Leukocyte Esterase 3+ /uL (Negative) Urine RBC 175 /hpf (0 - 3) Urine WBC 1917 /hpf (0 - 3) Urine WBC Clumps Present /hpf (None Seen) Urine Squamous Epithelial Cells Few /hpf (<5) Urine Bacteria Few /hpf (None Seen) H Urine Hyaline Casts Mod /lpf (0 - 2) Urine Mucus Few (None Seen) Urine Glucose Normal mg/dL (Normal) Microbiology Microbiology Date/Time Source Procedure Growth Status 05/08/24 06:05 Blood Blood Culture - Preliminary NO GROWTH AFTER 24 HOURS OF INCUBATION. Resulted 05/08/24 03:40 Voided Urine Urine Culture - Preliminary Resulted Assessment/Plan Assessment/Plan # Anemia possibly due to Hematuria - Transfuse PRBC - Urology consult - CBI - GI Consult # Complicated Cystitis - Abx, repeat urine culture # Metabolic Encephalopathy - Likely due to UTI Plan discussed with: Patient My Orders Orders - MISTY MORE MD Procedure Category Date Status Time Transfer Orders XFER 05/09/24 Transmitted 11:17 Furosemide Injection PHA 05/09/24 Verified (Lasix Injection) 18:00 Basic Metabolic Panel LAB 05/10/24 Verified 04:00 Complete Blood Count LAB 05/10/24 Verified 04:00 Date of Service: May 09, 2024 Billing Provider: MISTY MORE MD Common Visit Codes: [id number] INP/OBS CARE(HIGH) MISTY MORE MD May 09, 2024 17:18
--- NOTE | 2024-05-09 18:09 | DVHINCON2 ---
Date of service: May 08, 2024 Referring Physician Kris Reason for Consultation "hematuria" History of Present Illness History Source: RN Notes, MD Notes, Old Records, Other Exam Limitations: Clinical condition HPI 79 yo male with hx of kidney stones, s/p left stent. Admitted for symptomatic anemia. Osullivan in place with scant clear yellow urine. Home Meds Active Scripts Linezolid (Zyvox) 600 Mg Tab, 600 MG PO BID for 10 Days, #20 TAB repeat CBC in 1 week and follow up with pcp Prov:AMITA ROD RESIDENT 04/18/24 Fluconazole (Diflucan) 200 Mg Tab, 200 MG PO DAILY for 7 Days, #7 TAB Prov:MISTY MORE MD 04/14/24 Warfarin Sodium (Warfarin Sodium) 4 Mg Tab, 1 TAB PO DAILY, #30 Prov:REFUGIO WIN Pharmacist 05/07/20 Reported Medications Quetiapine Fumarate (Quetiapine Fumarate) 150 Mg Tab, 150 MG PO, TAB 04/03/24 Duloxetine Hcl (Cymbalta) 60 Mg Cap, 1 CAP PO DAILY, #90 CAP 3 Refills 02/14/24 Carbidopa-Levodopa (Rytary 36.25-145 mg) 1 Cap Cap, 2 CAP PO QID for PARKINSONS, CAP 07/25/23 Baclofen (Baclofen) 10 Mg Tab, 10 MG PO DAILY for BACK PAIN 06/22/22 Hydrocodone-Acetaminophen (Hydrocodone Bitartrate/AC 10-325 mg) 1 Tab Tab, 1 TAB PO DAILY for PAIN, TAB 06/22/22 Clopidogrel Bisulfate (Plavix) 75 Mg Tab, 75 MG PO DAILY for BLOOD THINNER 10/06/20 Lovastatin (Lovastatin) 40 Mg Tab, 1 TAB PO DAILY for CHOLESTEROL 05/04/20 Past Medical History Patient Family History: Cancer FH: breast cancer G8 SISTER FH: lung cancer G8 FATHER Family history: Cardiovascular disease G8 MOTHER Family history: Diabetes mellitus G8 BROTHER H&P Exam Vital Signs Vital Signs Date Time Temp Pulse Resp B/P (MAP) Pulse Ox O2 Delivery O2 Flow Rate FiO2 05/09/24 17:07 97.9 66 16 124/56 (78) 97 97.9 05/09/24 10:30 Nasal Cannula* 2 28 General Appeara: Well developed, Well nourished Abdominal Exam: No tenderness Rectal Exam: Deferred Male Genital Exam: Normal genitalia [employer]ICE PRESIDENT Exam: Normal hearing Neuro/Mental St: Lethargic Skin Exam: Pallor Labs/Xrays [address] [address] Ph: [phone] DIAGNOSTIC IMAGING Diagnostic Imaging Report : [id number] Signed PATIENT: QUENTIN SMITH ACCT: [id number] UNIT: [id number] : 1945 LOC: ER ROOM / BED: / AGE / SEX: 79 / M ADM STATUS: REG ER SERVICE 17 ORDERING PHYSICIAN: FAISAL GUNTER DO PROCEDURE(s): ABPL - CT AB PEL WO CON-NO ORAL OR IV REASON: weak, urinary stent placement, uti ORDER NUMBER(s): [id number], ACCESSION NUMBER(s): [id number] Exam: CT CT AB PEL WO CON-NO ORAL OR IV History: weak, urinary stent placement, uti Comparison Study: 02/13/2024; 02/15/2024 TECHNIQUE: Multidetector CT of the abdomen was performed from lung bases to pubic symphysis. Imaging was performed without IV contrast. Axial, coronal and sagittal multiplanar reformats were obtained from the axial data set by the technologist. Radiation Dose Information: CT Dose: CTDI volume is 19.78 mGy. Dose-length product is 1109.58 mGy*cm FINDINGS: Evaluation of solid organs is limited due to lack of intravenous contrast use. Findings: Lung Bases: No acute or significant lung base finding. Coronary artery calcifications. Can not exclude coronary stents.. No pleural or pericardial effusion. Liver: The liver is normal in size. No focal lesions. Gallbladder and Biliary Tree: Unremarkable Spleen: Unremarkable Pancreas: The pancreas is grossly normal in appearance. Adrenal Glands: Unremarkable Kidneys: Left ureteral catheter in place proximal portion within the renal pelvis and distal portion in the bladder. Bladder: Grossly unremarkable for degree of distention. Bowel: The stomach is grossly normal in appearance. Small bowel and colon are normal in caliber and distribution. 6-7 cm stool-filled rectum may represent fecal impaction. The appendix is not visualized; however, no secondary findings of acute appendicitis identified. Ascites: Absent Lymphadenopathy: No mesenteric, retroperitoneal or periportal lymphadenopathy. Abdominal Wall and Mesentery: Unremarkable. Vasculature: Below the level of the kidneys. Infrarenal abdominal aortic aneurysm. Appears smaller than 02/15/2024. Inferior vena cava appears enlarged (3.8 cm) in the upper abdomen but appears of more normal size 2.0 cm below the level of the kidneys. Pelvic Organs: Unremarkable Musculoskeletal: No aggressive focal bony lesions, acute fractures or dislocation. Sternal wire sutures in place Soft tissues: Unremarkable IMPRESSION: 1. Dense coronary artery calcifications. 2. Left ureteral stent in place 3. No calcified gallstones. 4. Pancreas appears unremarkable. 5. No findings of bowel obstruction. 6. Enlarged inferior vena cava measuring 3.8 cm at the top of the kidneys. Resumes more normal size below the level of the kidneys at 2.0 cm. Radiation optimization: All CT scans at this facility use at least one of these dose optimization techniques: automated exposure control mA and/or kV adjustment per patient size (includes targeted exams where dose is matched to clinical indication) or iterative reconstruction. ATED BY: FRANCO DOVE Jr., DO DICTATED DATE/TIME: 05/07/242115 SIGNED BY: FRANCO DOVE Jr., SIGNED DATE/TIME: 05/07/242115 CC: Labs Test 05/09/24 16:50 05/09/24 05:06 05/08/24 08:26 05/08/24 06:05 Range/Units White Blood Count 2.6 L 4.4-10.8 10^3/uL Red Blood Count 2.77 L 4.5-5.90 10^6/uL Hemoglobin 7.7 L 13.5-17.5 g/dL Hematocrit 22.3 L 41.0-53.0 % Mean Corpuscular Volume 80.5 # 80.0-100.0 fL Mean Corpuscular Hemoglobin 27.7 L 28.0-32.0 pg Mean Corpuscular Hemoglobin Concent 34.5 32.0-36.0 g/dL Red Cell Distribution Width 21.7 H 11.8-14.3 % Platelet Count 135 L 140-450 10^3/uL Mean Platelet Volume 7.5 6.9-10.8 fL Neutrophils (%) (Auto) 37.0-80.0 % Lymphocytes (%) (Auto) 10.0-50.0 % Monocytes (%) (Auto) 0.0-12.0 % Basophils (%) (Auto) 0.0-2.0 % Neutrophils # (Auto) 1.6-8.6 10 ^3/uL Lymphocytes # (Auto) 0.4-5.4 10 ^3/uL Monocytes # (Auto) 0-1.3 10 ^3/uL Differential Total Cells Counted 100.0 100 Neutrophils % (Manual) 55 37.0-80.0 Band Neutrophils % (Manual) 0 Lymphocytes % (Manual) 27 10.0-50.0 Monocytes % (Manual) 16 H 0-12 Eosinophils % (Manual) 2 0-7 Basophils % (Manual) 0 0.0-2.0 Metamyelocytes % (manual) 0 Myelocytes % (Manual) 0 Promyelocytes % (Manual) 0 Blast Cells % (Manual) 0 Reactive Lymphocytes 0 Platelet Estimate Decreased Anisocytosis (manual) Slight Prothrombin Time 13.7 H 9.3-11.8 sec Prothrombin Time INR 1.33 H 0.9-1.15 Activated Partial Thromboplast Time 32.8 24.5-34.5 SEC Sodium Level 141 136-145 mmol/L Potassium Level 3.4 L 3.5-5.1 mmol/L Chloride Level 106 98-107 mmol/L Carbon Dioxide Level 28 20-31 mmol/L Anion Gap 7 5-15 Blood Urea Nitrogen 30 H 9-23 mg/dL Creatinine 0.92 0.700-1.30 mg/dL Glomerular Filtration Rate Calc 84 >90 mL/min BUN/Creatinine Ratio 32.6 H 10.0-20.0 Serum Glucose 92 74-106 mg/dL Calcium Level 9.1 8.7-10.4 mg/dL Total Bilirubin 1.4 H 0.2-1.0 mg/dL Aspartate Amino Transferase (AST) 14 13-40 U/L Alanine Aminotransferase (ALT) < 9 7-40 U/L Alkaline Phosphatase 84 46-116 U/L B-Type Natriuretic Peptide 1046.52 0-100 pg/mL Total Protein 5.7 5.7-8.2 g/dL Albumin 3.6 3.2-4.8 g/dL Influenza Type A Antigen Negative Negative Influenza Type B Antigen Negative Negative SARS-CoV-2 Antigen (Rapid) Negative NEGATIVE Eosinophils (%) (Auto) 0.0-7.0 % Eosinophils # (Auto) 0-0.8 10 ^3/uL Basophils # (Auto) 0-0.2 10 ^3/uL Nucleated Red Blood Cells % Polychromasia Slight Ammonia < 10 L 11-32 umol/L Troponin I High Sensitivity 567 *H </=54 ng/L Vitamin B12 Level 911 211-911 pg/mL Vitamin D 25-Hydroxy 46.7 30.0-100 ng/mL Thyroid Stimulating Hormone (TSH) 2.35 0.55-4.78 uIU/mL Test 05/08/24 03:40 05/08/24 00:24 05/07/24 20:43 Range/Units Urine Color Light-orange Yellow Urine Clarity Ex.turbid Clear Urine pH 5.5 5.0-9.0 Urine Specific [place] 1.019 1.001-1.035 Urine Protein 2+ H Negative Urine Ketones Trace Negative Urine Blood 3+ H Negative /uL Urine Nitrite Negative Negative Urine Bilirubin Negative Negative Urine Urobilinogen Normal Negative mg/dL Urine Leukocyte Esterase 3+ Negative /uL Urine RBC 175 0 - 3 /hpf Urine WBC 1917 0 - 3 /hpf Urine WBC Clumps Present None Seen /hpf Urine Squamous Epithelial Cells Few <5 /hpf Urine Bacteria Few H None Seen /hpf Urine Hyaline Casts Mod 0 - 2 /lpf Urine Mucus Few None Seen Urine Glucose Normal Normal mg/dL Blood Gas Specimen Type Arterial Blood Gas Sample Site Right brachial Blood Gas Patient Temperature 37.0 Arterial Blood Date Drawn [id number] Arterial Blood pH 7.475 H 7.350-7.450 Arterial Blood Partial Pressure CO2 30.7 L 35.0-48.0 mmHg Arterial Blood Partial Pressure O2 95.7 83.0-108.0 mmHg Arterial Blood HCO3 22.1 21.0-28.0 mmol/L Arterial Blood Oxygen Saturation 97.0 94.0-98.0 % Arterial Blood Base Excess -1.4 -2.0-3.0 mmol/L Arterial Blood Oxyhemoglobin 93.6 L 94.0-98.0 % Arterial Blood Carboxyhemoglobin 2.8 H 0.5-1.5 % Arterial Blood Methemoglobin 0.7 0.0-1.5 % Juan Test N/a Blood Gas Total Hemoglobin 5.30 *L 13.5-17.5 g/dL Blood Gas Set Respiration Rate 16.0 Blood Gas Liter Flow 0.00 Blood Gas Modality Room air FiO2 % 21.0 Specimen Drawn By Shaila london rt Blood Gas Critical Value Read Back Yes Blood Gas Notified Whom alexsandra Fowler md Blood Gas Notified Time [id number] Blood Gas Notified By Alexsandra montero Hypochromasia (manual) Moderate Microcytosis Moderate Tear Drop Cells Few Stomatocytes Few Lactic Acid Level 1.5 0.4-2.0 mmol/L Magnesium Level 2.3 1.6-2.6 mg/dL Microbiology Date/Time Source Procedure Growth Status 05/08/24 06:05 Blood Blood Culture - Preliminary NO GROWTH AFTER 24 HOURS OF INCUBATION. Resulted 05/08/24 03:40 Voided Urine Urine Culture - Preliminary Resulted Assessment/Plan Problem List: (1) History of ureter stent (2) Supratherapeutic INR (3) Symptomatic anemia Plan transfuse PRBC hgb < 7 hold plavix outpt stent removal in office TBA d/c with osullivan Plan discussed with: MARGIE Whitley NP May 09, 2024 18:09
[2024-05-09] MEDS: FUROSEMIDE 20 MG/2 ML VIAL IV SCH (18:13)
[2024-05-09] MEDS: POTASSIUM CHLORIDE 40 MEQ, LIDOCAINE 1% (LOCAL ANESTH.) 4 ML in SODIUM CHL 0.9% 250 ML IV ONE (19:01)
[2024-05-09 20:00] VITALS: PULSE 64; RESP 15; O2SAT 98
--- NOTE | 2024-05-09 22:21 | DVHINCON2 ---
Date of service: May 09, [address] Ponce Reason for Consultation Possible GI bleed Family History: Cancer FH: breast cancer G8 SISTER FH: lung cancer G8 FATHER Family history: Cardiovascular disease G8 MOTHER Family history: Diabetes mellitus G8 BROTHER Allergies: Coded Allergies: Ciprofloxacin (Verified Allergy, Mild, oral blisters and rash, 04/03/24) Sulfa Antibiotics (Verified Allergy, Unknown, 04/03/24) Home Meds Active Scripts Linezolid (Zyvox) 600 Mg Tab, 600 MG PO BID for 10 Days, #20 TAB repeat CBC in 1 week and follow up with pcp Prov:AMITA ROD RESIDENT 04/18/24 Fluconazole (Diflucan) 200 Mg Tab, 200 MG PO DAILY for 7 Days, #7 TAB Prov:MISTY PONCE MD 04/14/24 Warfarin Sodium (Warfarin Sodium) 4 Mg Tab, 1 TAB PO DAILY, #30 Prov:REFUGIO WIN Pharmacist 05/07/20 Reported Medications Quetiapine Fumarate (Quetiapine Fumarate) 150 Mg Tab, 150 MG PO, TAB 04/03/24 Duloxetine Hcl (Cymbalta) 60 Mg Cap, 1 CAP PO DAILY, #90 CAP 3 Refills 02/14/24 Carbidopa-Levodopa (Rytary 36.25-145 mg) 1 Cap Cap, 2 CAP PO QID for PARKINSONS, CAP 07/25/23 Baclofen (Baclofen) 10 Mg Tab, 10 MG PO DAILY for BACK PAIN 06/22/22 Hydrocodone-Acetaminophen (Hydrocodone Bitartrate/AC 10-325 mg) 1 Tab Tab, 1 TAB PO DAILY for PAIN, TAB 06/22/22 Clopidogrel Bisulfate (Plavix) 75 Mg Tab, 75 MG PO DAILY for BLOOD THINNER 10/06/20 Lovastatin (Lovastatin) 40 Mg Tab, 1 TAB PO DAILY for CHOLESTEROL 05/04/20 Current Medications Current Medications Medications (Trade) Dose Ordered Sig/[place]mond Route PRN Reason Start Time Stop Time Status Last Admin Ceftriaxone Sodium 50 ml @ 100 mls/hr DAILY@09 IV 05/09/24 09:00 05/09/24 09:20 Furosemide (Lasix Injection) 20 mg BIDD IV 05/09/24 18:00 05/09/24 18:13 Vital Signs Vital Signs Date Time Temp Pulse Resp B/P (MAP) Pulse Ox O2 Delivery O2 Flow Rate FiO2 05/09/24 22:00 68 17 146/74 (98) 100 05/09/24 20:00 Nasal Cannula* 2 28 05/09/24 20:00 98.8 98.8 Physical Exam General Appeara: Well developed, Well nourished Abdominal Exam: No tenderness Rectal Exam: Deferred Male Genital Exam: Normal genitalia DIRECTOR TRANSLATIONAL Exam: Normal hearing Neuro/Mental St: Lethargic Skin Exam: Pallor Labs/Diagnostic Data Labs Test 05/09/24 16:50 05/09/24 05:06 05/08/24 08:26 05/08/24 06:05 Range/Units Stool Occult Blood Negative Negative Stool Occult Blood Sample #3 Negative White Blood Count 2.6 L 4.4-10.8 10^3/uL Red Blood Count 2.77 L 4.5-5.90 10^6/uL Hemoglobin 7.7 L 13.5-17.5 g/dL Hematocrit 22.3 L 41.0-53.0 % Mean Corpuscular Volume 80.5 # 80.0-100.0 fL Mean Corpuscular Hemoglobin 27.7 L 28.0-32.0 pg Mean Corpuscular Hemoglobin Concent 34.5 32.0-36.0 g/dL Red Cell Distribution Width 21.7 H 11.8-14.3 % Platelet Count 135 L 140-450 10^3/uL Mean Platelet Volume 7.5 6.9-10.8 fL Neutrophils (%) (Auto) 37.0-80.0 % Lymphocytes (%) (Auto) 10.0-50.0 % Monocytes (%) (Auto) 0.0-12.0 % Basophils (%) (Auto) 0.0-2.0 % Neutrophils # (Auto) 1.6-8.6 10 ^3/uL Lymphocytes # (Auto) 0.4-5.4 10 ^3/uL Monocytes # (Auto) 0-1.3 10 ^3/uL Differential Total Cells Counted 100.0 100 Neutrophils % (Manual) 55 37.0-80.0 Band Neutrophils % (Manual) 0 Lymphocytes % (Manual) 27 10.0-50.0 Monocytes % (Manual) 16 H 0-12 Eosinophils % (Manual) 2 0-7 Basophils % (Manual) 0 0.0-2.0 Metamyelocytes % (manual) 0 Myelocytes % (Manual) 0 Promyelocytes % (Manual) 0 Blast Cells % (Manual) 0 Reactive Lymphocytes 0 Platelet Estimate Decreased Anisocytosis (manual) Slight Prothrombin Time 13.7 H 9.3-11.8 sec Prothrombin Time INR 1.33 H 0.9-1.15 Activated Partial Thromboplast Time 32.8 24.5-34.5 SEC Sodium Level 141 136-145 mmol/L Potassium Level 3.4 L 3.5-5.1 mmol/L Chloride Level 106 98-107 mmol/L Carbon Dioxide Level 28 20-31 mmol/L Anion Gap 7 5-15 Blood Urea Nitrogen 30 H 9-23 mg/dL Creatinine 0.92 0.700-1.30 mg/dL Glomerular Filtration Rate Calc 84 >90 mL/min BUN/Creatinine Ratio 32.6 H 10.0-20.0 Serum Glucose 92 74-106 mg/dL Calcium Level 9.1 8.7-10.4 mg/dL Total Bilirubin 1.4 H 0.2-1.0 mg/dL Aspartate Amino Transferase (AST) 14 13-40 U/L Alanine Aminotransferase (ALT) < 9 7-40 U/L Alkaline Phosphatase 84 46-116 U/L B-Type Natriuretic Peptide 1046.52 0-100 pg/mL Total Protein 5.7 5.7-8.2 g/dL Albumin 3.6 3.2-4.8 g/dL Influenza Type A Antigen Negative Negative Influenza Type B Antigen Negative Negative SARS-CoV-2 Antigen (Rapid) Negative NEGATIVE Eosinophils (%) (Auto) 0.0-7.0 % Eosinophils # (Auto) 0-0.8 10 ^3/uL Basophils # (Auto) 0-0.2 10 ^3/uL Nucleated Red Blood Cells % Polychromasia Slight Ammonia < 10 L 11-32 umol/L Troponin I High Sensitivity 567 *H </=54 ng/L Vitamin B12 Level 911 211-911 pg/mL Vitamin D 25-Hydroxy 46.7 30.0-100 ng/mL Thyroid Stimulating Hormone (TSH) 2.35 0.55-4.78 uIU/mL Test 05/08/24 03:40 05/08/24 00:24 05/07/24 20:43 Range/Units Urine Color Light-orange Yellow Urine Clarity Ex.turbid Clear Urine pH 5.5 5.0-9.0 Urine Specific [place] 1.019 1.001-1.035 Urine Protein 2+ H Negative Urine Ketones Trace Negative Urine Blood 3+ H Negative /uL Urine Nitrite Negative Negative Urine Bilirubin Negative Negative Urine Urobilinogen Normal Negative mg/dL Urine Leukocyte Esterase 3+ Negative /uL Urine RBC 175 0 - 3 /hpf Urine WBC 1917 0 - 3 /hpf Urine WBC Clumps Present None Seen /hpf Urine Squamous Epithelial Cells Few <5 /hpf Urine Bacteria Few H None Seen /hpf Urine Hyaline Casts Mod 0 - 2 /lpf Urine Mucus Few None Seen Urine Glucose Normal Normal mg/dL Blood Gas Specimen Type Arterial Blood Gas Sample Site Right brachial Blood Gas Patient Temperature 37.0 Arterial Blood Date Drawn Arterial Blood pH 7.475 H 7.350-7.450 Arterial Blood Partial Pressure CO2 30.7 L 35.0-48.0 mmHg Arterial Blood Partial Pressure O2 95.7 83.0-108.0 mmHg Arterial Blood HCO3 22.1 21.0-28.0 mmol/L Arterial Blood Oxygen Saturation 97.0 94.0-98.0 % Arterial Blood Base Excess -1.4 -2.0-3.0 mmol/L Arterial Blood Oxyhemoglobin 93.6 L 94.0-98.0 % Arterial Blood Carboxyhemoglobin 2.8 H 0.5-1.5 % Arterial Blood Methemoglobin 0.7 0.0-1.5 % Juan Test N/a Blood Gas Total Hemoglobin 5.30 *L 13.5-17.5 g/dL Blood Gas Set Respiration Rate 16.0 Blood Gas Liter Flow 0.00 Blood Gas Modality Room air FiO2 % 21.0 Specimen Drawn By Shaila london rt Blood Gas Critical Value Read Back Yes Blood Gas Notified Whom alexsandra Fowler md Blood Gas Notified Time [id number] Blood Gas Notified By Alexsandra cruz rt Hypochromasia (manual) Moderate Microcytosis Moderate Tear Drop Cells Few Stomatocytes Few Lactic Acid Level 1.5 0.4-2.0 mmol/L Magnesium Level 2.3 1.6-2.6 mg/dL Microbiology Date/Time Source Procedure Growth Status 05/08/24 06:05 Blood Blood Culture - Preliminary NO GROWTH AFTER 24 HOURS OF INCUBATION. Resulted 05/08/24 03:40 Voided Urine Urine Culture - Preliminary Resulted ABD PELVIS CT SCAN IMPRESSION: 1. Dense coronary artery calcifications. 2. Left ureteral stent in place 3. No calcified gallstones. 4. Pancreas appears unremarkable. 5. No findings of bowel obstruction. 6. Enlarged inferior vena cava measuring 3.8 cm at the top of the kidneys. R esumes more normal size below the level of the kidneys at 2.0 cm. Problems(with codes): (1) Symptomatic anemia (2) Supratherapeutic INR (3) Altered mental status (4) Generalized weakness Plan/Recommendation Assessment plan Patient likely had anemia due to Coumadin toxicity and possible GI bleed Currently stool for occult blood is negative and hemoglobin is at 7.7 after 2 units PRBC No active GI bleeding is reported Start clear liquid diet , advance as tolerated I will monitor his labs Possible EGD on 05/11/2024 with the patient is medically stabilized Plan discussed with: Patient, Other (ER Nurse) PEGGY MITCHELL MD May 09, 2024 22:21
[2024-05-10] VITALS (7 sets, daily range): BP systolic 102–157; BP diastolic 57–69; PULSE 61–83; RESP 17–18; TEMP 97.6–98.7; O2SAT 94–100
[2024-05-10 06:37] LABS: Hemoglobin 7.6 g/dL (13.5-17.5); Mean Corpuscular Hemoglobin 27.2 pg (28.0-32.0); Mean Corpuscular Hgb Conc. 33.8 g/dL (32.0-36.0)
[2024-05-10 06:40] LABS: Hematocrit 22.5 % (41.0-53.0); Mean Corpuscular Volume 80.4 fL (80.0-100.0); Platelet Count (auto) 133 10^3/uL (140-450); White Blood Cell 2.6 10^3/uL (4.4-10.8)
[2024-05-10 06:55] LABS: Anion Gap 7 (5-15); Carbon Dioxide 27 mmol/L (20-31); Chloride 107 mmol/L (98-107); Potassium 3.8 mmol/L (3.5-5.1); Sodium 141 mmol/L (136-145)
[2024-05-10 06:59] LABS: Basophils % (manual) 0 (0.0-2.0); Blast Cells 0; Metamyelocytes % 0; Myelocytes % 0; Promyelocytes % 0; Reactive Lymphocytes 0
[2024-05-10 07:01] LABS: BUN/Creatinine Ratio 28.4 (10.0-20.0); Glucose 97 mg/dL (74-106)
[2024-05-10 07:02] LABS: Blood Urea Nitrogen 25 mg/dL (9-23)
[2024-05-10 07:33] LABS: Anisocytosis Slight; Band Neutrophils % (manual) 1; Eosinophils % (manual) 1 (0-7); Lymphocytes % (manual) 19 (10.0-50.0); Monocytes % (manual) 19 (0-12)
[2024-05-10 07:34] LABS: Hypochromia Moderate; Platelet Estimate Decreased
[2024-05-10] MEDS ORDERED: CEPH250C PO (11:42)
[2024-05-10] MEDS ORDERED: PANT40TA2 PO (11:42)
[2024-05-10] MEDS ORDERED: FURO1TAB33 PO (11:45)
[2024-05-10] MEDS ORDERED: POTA-228 PO (11:45)
--- NOTE | 2024-05-10 11:52 | DVHDS2 ---
Discharge Summary Date of Admission May 07, 2024 at 23:46 Date of Discharge: May 10, 2024 Labs/Diagnostic Data: Laboratory Results Test 05/10/24 05:23 05/09/24 16:50 05/09/24 05:06 05/08/24 08:26 White Blood Count 2.6 10^3/uL (4.4-10.8) Red Blood Count 2.80 10^6/uL (4.5-5.90) Hemoglobin 7.6 g/dL (13.5-17.5) Hematocrit 22.5 % (41.0-53.0) Mean Corpuscular Volume 80.4 fL (80.0-100.0) Mean Corpuscular Hemoglobin 27.2 pg (28.0-32.0) Mean Corpuscular Hemoglobin Concent 33.8 g/dL (32.0-36.0) Red Cell Distribution Width 22.0 % (11.8-14.3) Platelet Count 133 10^3/uL (140-450) Mean Platelet Volume 8.0 fL (6.9-10.8) Neutrophils (%) (Auto) % (37.0-80.0) Lymphocytes (%) (Auto) % (10.0-50.0) Monocytes (%) (Auto) % (0.0-12.0) Basophils (%) (Auto) % (0.0-2.0) Neutrophils # (Auto) 10 ^3/uL (1.6-8.6) Lymphocytes # (Auto) 10 ^3/uL (0.4-5.4) Monocytes # (Auto) 10 ^3/uL (0-1.3) Differential Total Cells Counted 100.0 (100) Neutrophils % (Manual) 60 (37.0-80.0) Band Neutrophils % (Manual) 1 Lymphocytes % (Manual) 19 (10.0-50.0) Monocytes % (Manual) 19 (0-12) Eosinophils % (Manual) 1 (0-7) Basophils % (Manual) 0 (0.0-2.0) Metamyelocytes % (manual) 0 Myelocytes % (Manual) 0 Promyelocytes % (Manual) 0 Blast Cells % (Manual) 0 Reactive Lymphocytes 0 Platelet Estimate Decreased Hypochromasia (manual) Moderate Anisocytosis (manual) Slight Schistocytes Sodium Level 141 mmol/L (136-145) Potassium Level 3.8 mmol/L (3.5-5.1) Chloride Level 107 mmol/L (98-107) Carbon Dioxide Level 27 mmol/L (20-31) Anion Gap 7 (5-15) Blood Urea Nitrogen 25 mg/dL (9-23) Creatinine 0.88 mg/dL (0.700-1.30) Glomerular Filtration Rate Calc 86 mL/min (>90) BUN/Creatinine Ratio 28.4 (10.0-20.0) Serum Glucose 97 mg/dL (74-106) Calcium Level 9.0 mg/dL (8.7-10.4) Stool Occult Blood Negative (Negative) Stool Occult Blood Sample #3 (Negative) Prothrombin Time 13.7 sec (9.3-11.8) Prothrombin Time INR 1.33 (0.9-1.15) Activated Partial Thromboplast Time 32.8 SEC (24.5-34.5) Total Bilirubin 1.4 mg/dL (0.2-1.0) Aspartate Amino Transferase (AST) 14 U/L (13-40) Alanine Aminotransferase (ALT) < 9 U/L (7-40) Alkaline Phosphatase 84 U/L (46-116) B-Type Natriuretic Peptide 1046.52 pg/mL (0-100) Total Protein 5.7 g/dL (5.7-8.2) Albumin 3.6 g/dL (3.2-4.8) Influenza Type A Antigen Negative (Negative) Influenza Type B Antigen Negative (Negative) SARS-CoV-2 Antigen (Rapid) Negative (NEGATIVE) Test 05/08/24 06:05 05/08/24 03:40 05/08/24 00:24 05/07/24 20:43 Eosinophils (%) (Auto) % (0.0-7.0) Eosinophils # (Auto) 10 ^3/uL (0-0.8) Basophils # (Auto) 10 ^3/uL (0-0.2) Nucleated Red Blood Cells % Polychromasia Slight Ammonia < 10 umol/L (11-32) Troponin I High Sensitivity 567 ng/L (</=54) Vitamin B12 Level 911 pg/mL (211-911) Vitamin D 25-Hydroxy 46.7 ng/mL (30.0-100) Thyroid Stimulating Hormone (TSH) 2.35 uIU/mL (0.55-4.78) Urine Color Light-orange (Yellow) Urine Clarity Ex.turbid (Clear) Urine pH 5.5 (5.0-9.0) Urine Specific [place] 1.019 (1.001-1.035) Urine Protein 2+ (Negative) Urine Ketones Trace (Negative) Urine Blood 3+ /uL (Negative) Urine Nitrite Negative (Negative) Urine Bilirubin Negative (Negative) Urine Urobilinogen Normal mg/dL (Negative) Urine Leukocyte Esterase 3+ /uL (Negative) Urine RBC 175 /hpf (0 - 3) Urine WBC 1917 /hpf (0 - 3) Urine WBC Clumps Present /hpf (None Seen) Urine Squamous Epithelial Cells Few /hpf (<5) Urine Bacteria Few /hpf (None Seen) Urine Hyaline Casts Mod /lpf (0 - 2) Urine Mucus Few (None Seen) Urine Glucose Normal mg/dL (Normal) Blood Gas Specimen Type Arterial Blood Gas Sample Site Right brachial Blood Gas Patient Temperature 37.0 Arterial Blood Date Drawn Arterial Blood pH 7.475 (7.350-7.450) Arterial Blood Partial Pressure CO2 30.7 mmHg (35.0-48.0) Arterial Blood Partial Pressure O2 95.7 mmHg (83.0-108.0) Arterial Blood HCO3 22.1 mmol/L (21.0-28.0) Arterial Blood Oxygen Saturation 97.0 % (94.0-98.0) Arterial Blood Base Excess -1.4 mmol/L (-2.0-3.0) Arterial Blood Oxyhemoglobin 93.6 % (94.0-98.0) Arterial Blood Carboxyhemoglobin 2.8 % (0.5-1.5) Arterial Blood Methemoglobin 0.7 % (0.0-1.5) Juan Test N/a Blood Gas Total Hemoglobin 5.30 g/dL (13.5-17.5) Blood Gas Set Respiration Rate 16.0 Blood Gas Liter Flow 0.00 Blood Gas Modality Room air FiO2 % 21.0 Specimen Drawn By Shaila montero Blood Gas Critical Value Read Back Yes Blood Gas Notified Whom alexsandra Fowler md Blood Gas Notified Time [id number] Blood Gas Notified By Alexsandra montero Microcytosis Moderate Tear Drop Cells Few Stomatocytes Few Lactic Acid Level 1.5 mmol/L (0.4-2.0) Magnesium Level 2.3 mg/dL (1.6-2.6) Other Laboratory Tests 05/10/24 05:23 Brief Hx & Hospital Course: This is a 79-year-old male with past medical history of hypertension, d yslipidemia, Parkinson disease, atrial fibrillation (on Coumadin), history of aortic aneurysm, acute coronary disease, CHF, hypertension, recurrent UTI, ureteral stone (status post stent), beta cell lymphoma, CKD grade 3, was brought to the hospital due to altered level of consciousness. Per patient's son, the patient had been more altered, decreased oral intake since 2 days and had noticed fresh blood in urine 2 times since yesterday's. Per patient's son, the patient did not have any fever, vomiting, cough, shortness of breaths and any new motor or sensory deficits. Patients mental status has improved, treated with Zyvox and Cefepime. Patient will be discharged home with a osullivan catheter to see Urology. Patient was transfused 4 PRBC. Stool occult blood is negative and no hematuria. Patient advised to discontinue Warfarin. I also spoke with the patients son over the phone. Patient can continue Plavix and will need to see PCP and Urology. Condition at Discharge: Poor Final Diagnosis/Problems List # Anemia possibly due to Hematuria- s/p PRBC # Complicated Cystitis # Metabolic Encephalopathy Discharge Disposition: Home Discharge Instruct/Medications Diet: Regular Activity: Light activity Follow Up/Referral: PCP in 1 week for CBC Medications: see [facility] Discharge Statement: "Patient was advised to return to the ER or call 911 if any headaches, dizziness, shortness of breath, chest pain, abdominal pain, bleeding, fevers, or worsening of medical condition. Patient was counseled about treatment plan, medications, possible side effects, patientverbalized understanding. All questions were answered to the best of my ability. This discharge took greater then 30 minutes in planning, reviewing documentation, counseling the patient, and discussing with other team members." ASSESSMENT ASSESSMENT Assessment Date of Service: May 10, 2024 Billing Provider: MISTY MORE MD Common Visit Codes: 53641-EFN/OBS DISCH DAY >30min MISTY MORE MD May 10, 2024 11:52
== END 2024-05-10 17:46 | disposition home health service (06) | DRG 689 ==
LOC: EDBD 20:08 → ER 20:08 → TELE 23:46 → TELE-EAST 05-09 22:27 → EAST 05-09 23:48
PROVIDERS: ADMIT Internal Medicine; ATTEND Internal Medicine
PROC: 30233N1 Transfusion of Nonautologous Red Blood Cells into Peripheral Vein, Percutaneous Approach (ICD-10-PCS; 2024-05-07)
PROC: 30233K1 Transfusion of Nonautologous Frozen Plasma into Peripheral Vein, Percutaneous Approach (ICD-10-PCS; principal; 2024-05-08)
DX: N30.01 Acute cystitis with hematuria (principal); G93.41 Metabolic encephalopathy; N17.0 Acute kidney failure with tubular necrosis; I13.0 Hypertensive heart and chronic kidney disease with heart failure and stage 1 through stage 4 chronic kidney disease, or unspecified chronic kidney disease; D64.9 Anemia, unspecified; G20.A1 Parkinson's disease without dyskinesia, without mention of fluctuations; Z20.822 Contact with and (suspected) exposure to COVID-19; I25.10 Atherosclerotic heart disease of native coronary artery without angina pectoris; R79.1 Abnormal coagulation profile; I50.9 Heart failure, unspecified; N18.30 Chronic kidney disease, stage 3 unspecified; E78.5 Hyperlipidemia, unspecified; I48.91 Unspecified atrial fibrillation; Z79.01 Long term (current) use of anticoagulants; Z87.442 Personal history of urinary calculi; Z88.1 Allergy status to other antibiotic agents; Z88.2 Allergy status to sulfonamides; Z83.3 Family history of diabetes mellitus; Z86.79 Personal history of other diseases of the circulatory system; Z87.440 Personal history of urinary (tract) infections; Z82.49 Family history of ischemic heart disease and other diseases of the circulatory system; Z80.3 Family history of malignant neoplasm of breast; Z85.118 Personal history of other malignant neoplasm of bronchus and lung; Z79.02 Long term (current) use of antithrombotics/antiplatelets; Z80.1 Family history of malignant neoplasm of trachea, bronchus and lung; Z85.72 Personal history of non-Hodgkin lymphomas; Z95.1 Presence of aortocoronary bypass graft; Z79.899 Other long term (current) drug therapy
CPT/HCPCS: 36415; 36600; 70450; 71045; 74176; 80048; 80053; 81001; 82140; 82270; 82306; 82607; 82805; 83605; 83735; 83880; 84443; 84484; 85007; 85014; 85018; 85025; 85027; 85610; 85730; 86850; 86900; 86901; 86920; 87040; 87081; 87086; 87088; 87186; 87426; 87804; 93005; 96365; 96366; 96368; G0378; J2003; J2470; J2543; J3430

== ENCOUNTER → 2024-06-05 | Outpatient (CLI) | payer OTHER ==
[~2024-06-05] MED LIST changes: +CEPH250C PO; -FLUC200T PO; +FURO1TAB33 PO; -HYDR-4798 PO; -LINE1TAB6 PO; +PANT40TA2 PO; +POTA-228 PO; -WARF-112 PO
[2024-06-05 11:36] LABS: Basophils # (auto) 0.1 10 ^3/uL (0-0.2); Basophils % (auto) 2.1 % (0.0-2.0); Eosinophils # (auto) 0.1 10 ^3/uL (0-0.8); Eosinophils % (auto) 2.2 % (0.0-7.0); Hematocrit 32.6 % (41.0-53.0); Hemoglobin 10.8 g/dL (13.5-17.5); Lymphocytes # (auto) 1.3 10 ^3/uL (0.4-5.4); Mean Corpuscular Hemoglobin 28.8 pg (28.0-32.0); Mean Corpuscular Hgb Conc. 33.1 g/dL (32.0-36.0); Mean Corpuscular Volume 87.1 fL (80.0-100.0); Monocytes # (auto) 0.4 10 ^3/uL (0-1.3); Monocytes % (auto) 10.4 % (0.0-12.0); Neutrophils # (auto) 2.4 10 ^3/uL (1.6-8.6); Neutrophils % (auto) 55.3 % (37.0-80.0); Nucleated Red Blood Cells % 0.2 %; Platelet Count (auto) 151 10^3/uL (140-450); Red Blood Cells 3.75 10^6/uL (4.5-5.90); Red Cell Distribution Width 21.7 % (11.8-14.3); White Blood Cell 4.3 10^3/uL (4.4-10.8)
== END | disposition home or self-care (01) ==
LOC: LAB 11:15
PROVIDERS: ATTEND Internal Medicine
DX: D64.9 Anemia, unspecified (principal)
CPT/HCPCS: 36415; 85025

== ENCOUNTER 2024-07-03 15:12 | Emergency (ER) | payer OTHER ==
[~2024-07-03] VITALS: Ht 175.3 cm; Wt 85.0 kg
[2024-07-03 15:57] VITALS: BP 130/83; PULSE 90; RESP 18; TEMP 97.6; O2SAT 98
--- NOTE | 2024-07-03 16:46 | DVH ---
CHEST RADIOGRAPH Indication: fever Technique: Single frontal view of the chest was obtained Comparison: XY CHEST PORTABLE on DOS: 05/07/24, XY CHEST PORTABLE on DOS: 04/12/24, XY CHEST PORTABLE on DOS: 04/11/24 FINDINGS: Lines and Tubes: None Lungs: Fqgag-[id number]-[id number]-left lower lung zone opacities. Mild interstitial prominence. Pleura: No effusion. No pneumothorax. Cardiomediastinal contours: Borderline cardiomegaly with mild atherosclerotic calcification and uncoi ling of the aorta. Bones: No acute osseous abnormality. Midline sternotomy wires are noted. IMPRESSION: Pulmonary vascular congestion with bilateral lower lung zone pneumonia/atelectasis.
[2024-07-03 17:14] LABS: Urine Bacteria None Seen /hpf (None Seen)
[2024-07-03 17:29] LABS: Basophils # (auto) 0 10 ^3/uL (0-0.2); Basophils % (auto) 1.1 % (0.0-2.0); Eosinophils # (auto) 0.1 10 ^3/uL (0-0.8); Eosinophils % (auto) 1.4 % (0.0-7.0); Hemoglobin 11.8 g/dL (13.5-17.5); Lymphocytes # (auto) 0.9 10 ^3/uL (0.4-5.4); Lymphocytes % (auto) 24.2 % (10.0-50.0); Mean Corpuscular Hgb Conc. 33.7 g/dL (32.0-36.0); Mean Corpuscular Volume 89.2 fL (80.0-100.0); Monocytes # (auto) 0.5 10 ^3/uL (0-1.3); Monocytes % (auto) 12.9 % (0.0-12.0); Neutrophils # (auto) 2.2 10 ^3/uL (1.6-8.6); Neutrophils % (auto) 60.4 % (37.0-80.0); Nucleated Red Blood Cells % 0.2 %; Platelet Count (auto) 134 10^3/uL (140-450); Red Blood Cells 3.92 10^6/uL (4.5-5.90); Red Cell Distribution Width 14.5 % (11.8-14.3); White Blood Cell 3.6 10^3/uL (4.4-10.8)
[2024-07-03 17:31] LABS: Urine Blood 1+ /uL (Negative); Urine Clarity Clear (Clear); Urine Color Colorless (Yellow); Urine Protein, UAD Negative (Negative); Urine Squamous Epithelial Cell None Seen /hpf (<5); Urine Urobilinogen Normal (Negative); Urine WBC 9 /HPF (0-3); Urine pH 5.5 (5.0-9.0)
[2024-07-03 17:43] LABS: Albumin 4.6 g/dL (3.2-4.8); Alkaline Phosphatase 73 U/L (46-116); Anion Gap 8 (5-15); Aspartate Aminotransferase 17 U/L (13-40); Bilirubin, Total 0.8 mg/dL (0.2-1.0); Blood Urea Nitrogen 16 mg/dL (9-23); Carbon Dioxide 29 mmol/L (20-31); Potassium 4.2 mmol/L (3.5-5.1); Sodium 144 mmol/L (136-145); Total Protein 7.2 g/dL (5.7-8.2)
[2024-07-03 18:15] LABS: Alanine Aminotransferase < 9 U/L (7-40); Calcium 10.5 mg/dL (8.7-10.4); Chloride 107 mmol/L (98-107); Glucose 107 mg/dL (74-106)
--- NOTE | 2024-07-03 19:43 | ED.PDOC ---
History of Present Illness HPI Comments Patient was brought in complaining of body ache and fever today. Has been having some mild intermittent shortness of breath. No cough. Nothing makes it better, nothing makes it worse. Chief Complaint: Fever Time Seen by MD: 15:39 Primary Care Provider: RAFAEL Elliott Notes: Nurses Notes Allergies: Coded Allergies: Ciprofloxacin (Verified Allergy, Mild, oral blisters and rash, 04/03/24) Sulfa Antibiotics (Verified Allergy, Unknown, 04/03/24) Home Meds Active Scripts Potassium Chloride (Potassium Chloride ER) 10 Meq Tab, 10 MEQ PO QAM for 30 Days, #30 TAB Prov:MISTY MORE MD 05/10/24 Furosemide (Lasix) 20 Mg Tb, 1 TAB PO DAILY, #30 TAB 0 Refills Prov:MISTY MORE MD 05/10/24 Pantoprazole Sodium Sesquihydr (Protonix) 40 Mg Tab, 40 MG PO DAILY for 30 Days, #30 TAB Prov:MISTY MORE MD 05/10/24 Cephalexin (KEFLEX CAPSULE) 250 Mg Cp, 500 MG PO TID for 7 Days, #21 CAP Prov:MISTY MORE MD 05/10/24 Reported Medications Quetiapine Fumarate (Quetiapine Fumarate) 150 Mg Tab, 150 MG PO, TAB 04/03/24 Duloxetine Hcl (Cymbalta) 60 Mg Cap, 1 CAP PO DAILY, #90 CAP 3 Refills 02/14/24 Carbidopa-Levodopa (Rytary 36.25-145 mg) 1 Cap Cap, 2 CAP PO QID for PARKINSONS, CAP 07/25/23 Baclofen (Baclofen) 10 Mg Tab, 10 MG PO DAILY for BACK PAIN 06/22/22 Clopidogrel Bisulfate (Plavix) 75 Mg Tab, 75 MG PO DAILY for BLOOD THINNER 10/06/20 Lovastatin (Lovastatin) 40 Mg Tab, 1 TAB PO DAILY for CHOLESTEROL 05/04/20 Information Source: Patient Mode of Arrival: Wheelchair Past Medical History PAST MEDICAL HISTORY: CAD, Cancer, High Lipids, HTN, Kidney Stones, ID Surgical History: CABG, PTCA Family History Family History: Family hx of DM, Family hx of heart johnnie Social History Smoker: Non-Smoker Alcohol: Denies ETOH Use Drugs: Denies Drug Use Lives In: Home Constitutional: denies: chills, diaphoresis, fatigue, fever, malaise, sweats, weakness, others EENTM: denies: blurred vision, double vision, ear bleeding, ear discharge, ear drainage, ear pain, ear ringing, eye pain, eye redness, hearing loss, mouth pain, mouth swelling, nasal discharge, nose bleeding, nose congestion, nose pain, photophobia, tearing, throat pain, throat swelling, voice changes, others Respiratory: reports: SOB at rest; denies: cough, hemoptysis, orthopnea, shortness of breath, SOB with excertion, stridor, wheezing, others Cardiovascular: denies: chest pain, dizzy spells, diaphoresis, Dyspnea on exertion, edema, irregular heart beat, left arm pain, lightheadedness, palpitations, PND, syncope, others Gastrointestinal: denies: abdomen distended, abdominal pain, blood streaked bowels, constipated, diarrhea, dysphagia, difficulty swallowing, hematemesis, melena, nausea, poor appetite, poor fluid intake, rectal bleeding, rectal pain, vomiting, others Genitourinary: denies: burning, dysuria, flank pain, frequency, hematuria, incontinence, penile discharge, penile sore, pain, testicle pain, testicle swelling, urgency, others Neurological: denies: dizziness, fainting, headache, left sided numbness, left sided weakness, numbness, paresthesia, pre-existing deficit, right sided numbness, right sided weakness, seizure, speech problems, tingling, tremors, weakness, others Musculoskeletal: reports: muscle pain, muscle stiffness; denies: back pain, gout, joint pain, joint swelling, neck pain, others Integumetry: denies: bruises, change in color, change in hair/nails, dryness, laceration, lesions, lumps, rash, wounds, others Allergic/Immunocompromised: denies: Difficulty Healing, Frequent Infections, Hives, Itching, others Physical Exam General Appearance: Moderate Distress, Normal HEENT: Normal ENT Inspection, Pharynx Normal, TMs Normal Neck: Full Range of Motion, Non-Tender, Normal, Normal Inspection Respiratory: Chest Non-Tender, Lungs Clear, No Accessory Muscle Use, No Respiratory Distress, Normal Breath Sounds Cardiovascular: No Edema, No JVD, No Murmur, No Gallop, Normal Peripheral Pulses, Regular Rate/Rhythm Breast Exam: Deferred Gastrointestinal: No Organomegaly, Non Tender, No Pulsatile Mass, Normal Bowel Sounds, Soft Genitalia: Deferred Pelvic: Deferred Rectal: Deferred Extremities: No calf tenderness, Normal capillary refill, Normal inspection, Normal range of motion, Non-tender, No pedal edema Musculoskeletal : Apperance: Normal Neurologic: Alert, media theorist and author of II-XII nml as Tested, Normal Mood Cerebellar Function: NOT DONE Reflexes: NOT DONE Skin: Dry, Normal Color, Warm Lymphatic: No Adenopathy Was a procedure done? Was a procedure done?: No Differential Dx Considerations may include: Sepsis, pneumonia, URI, influenza, COVID, strep throat, pharyngitis, pneumonia X-Ray, Labs, Meds, VS Vital Signs Date Time Temp Pulse Resp B/P (MAP) Pulse Ox O2 Delivery O2 Flow Rate FiO2 07/03/24 15:57 97.6 90 18 130/83 (99) 98 97.6 Lab Test 07/03/24 17:03 07/03/24 16:13 Range/Units White Blood Count 3.6 L 4.4-10.8 10^3/uL Red Blood Count 3.92 L 4.5-5.90 10^6/uL Hemoglobin 11.8 L 13.5-17.5 g/dL Hematocrit 35.0 L 41.0-53.0 % Mean Corpuscular Volume 89.2 80.0-100.0 fL Mean Corpuscular Hemoglobin 30.0 28.0-32.0 pg Mean Corpuscular Hemoglobin Concent 33.7 32.0-36.0 g/dL Red Cell Distribution Width 14.5 H 11.8-14.3 % Platelet Count 134 L 140-450 10^3/uL Mean Platelet Volume 7.9 6.9-10.8 fL Neutrophils (%) (Auto) 60.4 37.0-80.0 % Lymphocytes (%) (Auto) 24.2 10.0-50.0 % Monocytes (%) (Auto) 12.9 H 0.0-12.0 % Eosinophils (%) (Auto) 1.4 0.0-7.0 % Basophils (%) (Auto) 1.1 0.0-2.0 % Neutrophils # (Auto) 2.2 1.6-8.6 10 ^3/uL Lymphocytes # (Auto) 0.9 0.4-5.4 10 ^3/uL Monocytes # (Auto) 0.5 0-1.3 10 ^3/uL Eosinophils # (Auto) 0.1 0-0.8 10 ^3/uL Basophils # (Auto) 0 0-0.2 10 ^3/uL Nucleated Red Blood Cells 0.2 % Sodium Level 144 136-145 mmol/L Potassium Level 4.2 3.5-5.1 mmol/L Chloride Level 107 98-107 mmol/L Carbon Dioxide Level 29 20-31 mmol/L Anion Gap 8 5-15 Blood Urea Nitrogen 16 9-23 mg/dL Creatinine 0.84 0.700-1.30 mg/dL Glomerular Filtration Rate Calc 88 >90 mL/min BUN/Creatinine Ratio 19.0 10.0-20.0 Serum Glucose 107 H 74-106 mg/dL Calcium Level 10.5 H 8.7-10.4 mg/dL Total Bilirubin 0.8 0.2-1.0 mg/dL Aspartate Amino Transferase (AST) 17 13-40 U/L Alanine Aminotransferase (ALT) < 9 7-40 U/L Alkaline Phosphatase 73 46-116 U/L Total Protein 7.2 5.7-8.2 g/dL Albumin 4.6 3.2-4.8 g/dL Urine Color Colorless Yellow Urine Clarity Clear Clear Urine pH 5.5 5.0-9.0 Urine Specific [place] 1.010 1.001-1.035 Urine Protein Negative Negative Urine Ketones Negative Negative Urine Blood 1+ H Negative /uL Urine Nitrite Negative Negative Urine Bilirubin Negative Negative Urine Urobilinogen Normal Negative mg/dL Urine Leukocyte Esterase Trace Negative /uL Urine RBC 16 0 - 3 /hpf Urine Microscopic WBC 9 H 0-3 /HPF Urine Squamous Epithelial Cells None seen <5 /hpf Urine Bacteria None seen None Seen /hpf Urine Glucose Normal Normal mg/dL X-Ray, Labs, Meds, VS Comment Patient will be admitted for bilateral lower lobe pneumonia Patient will be started on azithromycin Patient hemodynamically stable Previous charts reviewed by this provider Vital signs reviewed by this provider Time of 1ST Reevaluation: 20:03 Reevaluation 1ST: Improved Patient Education/Counseling: Diagnosis, Treatment Family Education/Counseling: Diagnosis, Treatment Departure 1 Departure Time of Disposition: 19:49 Impression: Primary Impression: Pneumonia Qualified Codes: J18.9 - Pneumonia, unspecified organism Additional Impressions: Generalized weakness Parkinsons Qualified Codes: G20.B2 - Parkinson's disease with dyskinesia, with fluctuations Disposition: 09 ADMITTED INPATIENT Condition: Fair Discharged With: Self Critical Care Note Critical Care Time?: No Stability Stability form required: No Heart Score Heart Score: Heart Score Response (Comments) Value History N/A 0 EKG N/A 0 Age N/A 0 Risk Factors N/A 0 Troponin N/A 0 Total 0 MARIA L [id number] Jul 03, 2024 19:43
[2024-07-03] MEDS ORDERED: AZITHROMYCIN 500MG/ 250ML 250 ML IV ONE (20:15)
== END 2024-07-03 22:07 | disposition left against medical advice (07) ==
LOC: ER 15:12
DX: J18.9 Pneumonia, unspecified organism (principal); R53.1 Weakness; G20.B2 Parkinson's disease with dyskinesia, with fluctuations; I10 Essential (primary) hypertension; E78.5 Hyperlipidemia, unspecified; Z79.899 Other long term (current) drug therapy; Z95.1 Presence of aortocoronary bypass graft; Z88.1 Allergy status to other antibiotic agents; Z88.2 Allergy status to sulfonamides
CPT/HCPCS: 36415; 71045; 80053; 81001; 85025

== ENCOUNTER → 2024-07-30 | Outpatient (CLI) | payer OTHER ==
[~2024-07-30] MED LIST changes: -CARB1CAP3 PO; -CEPH250C PO; +CYAN-17 PO; -DULO60CA41 PO; +NIFE1TAB31 PO; +PREG50CA80 PO
[2024-07-30 11:52] LABS: INR 1.88 (0.9-1.15); Prothrombin Time 18.7 sec (9.3-11.8)
== END | disposition home or self-care (01) ==
LOC: LAB 11:06
PROVIDERS: ATTEND Internal Medicine
DX: I34.0 Nonrheumatic mitral (valve) insufficiency (principal)
CPT/HCPCS: 36415; 85610

== ENCOUNTER → 2024-12-28 | Outpatient (CLI) | payer OTHER | END | disposition home or self-care (01) | LOC: LAB 12:54 | PROVIDERS: ATTEND Family Medicine | DX: Z01.812 Encounter for preprocedural laboratory examination (principal); D48.5 Neoplasm of uncertain behavior of skin ==

== ENCOUNTER 2025-02-18 11:39 | Outpatient (CLI) | payer OTHER ==
[2025-02-18 13:31] LABS: Hematocrit 37.4 % (41.0-53.0); Hemoglobin 13.1 g/dL (13.5-17.5); Mean Corpuscular Hemoglobin 30.6 pg (28.0-32.0); Mean Corpuscular Volume 87.1 fL (80.0-100.0); Nucleated Red Blood Cells % 0.3 %
[2025-02-18 13:47] LABS: Alanine Aminotransferase < 9 U/L (7-40); Albumin 4.6 g/dL (3.2-4.8); Alkaline Phosphatase 65 U/L (46-116); Anion Gap 10 (5-15); BUN/Creatinine Ratio 16.7 (10.0-20.0); Bilirubin, Total 0.8 mg/dL (0.2-1.0); Blood Urea Nitrogen 19 mg/dL (9-23); Calcium 9.7 mg/dL (8.7-10.4); Carbon Dioxide 31 mmol/L (20-31); Chloride 105 mmol/L (98-107); Cholesterol 133 mg/dL (< 200); Glucose 82 mg/dL (74-106); HDL Cholesterol 35 mg/dL (40-59); Potassium 4.0 mmol/L (3.5-5.1); Sodium 146 mmol/L (136-145); Total Protein 7.6 g/dL (5.7-8.2); Triglycerides 92 mg/dL (< 150)
[2025-02-18 14:00] LABS: Prostate Specific Antigen 0.53 ng/mL (0.0-4.0)
[2025-02-18 14:02] LABS: Urine Budding Yeast OCCASIONAL /hpf (None Seen); Urine Protein, UAD Negative (Negative)
[2025-02-18 14:05] LABS: Free T4 (Free Thyroxine) 1.16 ng/dL (0.89-1.76)
== END 2025-02-18 17:00 | disposition home or self-care (01) ==
LOC: LAB 11:39
PROVIDERS: ATTEND Internal Medicine
DX: I13.0 Hypertensive heart and chronic kidney disease with heart failure and stage 1 through stage 4 chronic kidney disease, or unspecified chronic kidney disease (principal); N18.31 Chronic kidney disease, stage 3a; I50.9 Heart failure, unspecified; E78.2 Mixed hyperlipidemia; N20.0 Calculus of kidney; D68.69 Other thrombophilia; Z00.01 Encounter for general adult medical examination with abnormal findings; Z13.1 Encounter for screening for diabetes mellitus; Z79.899 Other long term (current) drug therapy
CPT/HCPCS: 36415; 80053; 80061; 81001; 82274; 82306; 83036; 84153; 84439; 84443; 85025

== ENCOUNTER → 2025-04-17 | Outpatient (CLI) | payer OTHER ==
[2025-04-17 12:12] LABS: Urine Protein, UAD Negative (Negative)
== END | disposition home or self-care (01) ==
LOC: LAB 11:33
PROVIDERS: ATTEND Urology
DX: N20.0 Calculus of kidney (principal)
CPT/HCPCS: 81001; 87086; 87088; 87186